=== PATIENT | female | born 1990 | race Caucasian/White ===

== ENCOUNTER → 2019-11-12 15:02 | Outpatient (CLI) | payer OTHER, SELFPAY ==
[2019-06-27 16:36] VITALS: BMI 26.9
[2019-11-12 16:12] LABS: Absolute Lymphocyte Count 1.67 X10^3/uL (0.83-4.51); Absolute Neutrophil Count 7.3 X10^3/uL (2.0-7.7); Basophil# 0.06 X10^3/uL; Basophil% 0.6 % (0-1); Eosinophil# 0.22 X10^3/uL; Eosinophils% 2.1 % (0-5); Hematocrit 52.5 % (37-47); Hemoglobin 17.6 g/dL (12.0-15.0); Lymphocyte # 1.67 X10^3/ul (4.0); Lymphocyte % 16.1 % (19-41); Mean Corp Hgb Conc 33.5 g/dL (32-36); Mean Corpuscular Hgb 32.4 pg (27.0-32.0); Mean Corpuscular Volume 96.7 fL (81-99); Mean Platelet Vol. 9.8 fl (6.2-12.0); Monocyte# 1.12 X10^3/uL; Monocyte% 10.8 % (0-10); NRBC Flagged by Analyzer 0 % (0-5); Neutrophil # 7.29 X10^3/uL (2.7-7.7); Platelet Count 262 K/mm3 (150-450); RBC Distribution Width SD 42.9 fl (35.1-43.9); Red Blood Count 5.43 M/mm3 (4.2-5.4); White Blood Count 10.4 K/mm3 (4.4-11.0)
[2019-11-12 16:22] LABS: Color, Urine Yellow (Yellow); Glucose, Dipstick Normal (Normal); Ketone-Dipstick 15 mg/dl (Negative); Leukocyte Esterase-Dipstick Negative /ul (Negative); Nitrite-Dipstick Negative (Negative); Occult Blood-Urine Negative /ul (Negative); Protein-Dipstick Negative (Negative); Specific Gravity, Urine 1.025 (1.002-1.030); Urine Bilirubin Dipstick Negative (Negative); Urine Clarity Clear (Clear); Urine Urobilinogen Normal (Normal)
[2019-11-12 16:53] LABS: ALB/GLOB Ratio 1.1 RATIO (0.9-2.4); AST(SGOT) 87 U/L (15-37); Alanine Aminotransfer ALT/SGPT 65 U/L (13-56); Albumin, Serum 3.9 g/dL (3.2-5.0); Alkaline Phosphatase 69 U/L (45-117); Anion Gap 6 (5-15); BUN 6 mg/dL (7-18); BUN/Creat Ratio 7.5 RATIO (10-20); Calcium,Total 8.7 mg/dL (8.5-10.1); Chloride 106 mmol/L (98-107); Cholesterol 157 mg/dL (200); EST Glomerular Filtration Rate 91 mL/min (>60); Est Glom Filt Rate - Afr Amer 110 mL/min (>60); Globulin 3.4 g/dL (2.2-4.2); Glucose 95 mg/dL (74-106); High Density Lipoprotein 58 mg/dL; Potassium 3.9 mmol/L (3.5-5.1); Protein, Total 7.3 g/dL (6.4-8.2); Sodium Level 139 mmol/L (136-145); Triglycerides 49 mg/dL; Very Low Density Lipoprotein 10 mg/dL (5-40)
== END ==
PROVIDERS: PCP Family Medicine; Referring Provider Family Medicine; Visit Provider Family Medicine
DX: Z00.00 Encounter for general adult medical examination without abnormal findings (principal); I10 Essential (primary) hypertension
CPT/HCPCS: 36415; 80053; 80061; 81002; 85025

== ENCOUNTER → 2019-11-18 14:37 | Outpatient (CLI) | payer OTHER, SELFPAY ==
[2019-06-27 16:36] VITALS: BMI 26.9
[2019-11-20 05:06] LABS: HEPATITIS B SURFACE AG Negative (Negative); Hepatitis A IgM Antibody Negative (Negative); Hepatitis B Core AB IgM Negative (Negative)
[2019-11-21 11:51] LABS: Hep C Antibodies <0.1 s/co ratio (0.0-0.9)
== END ==
PROVIDERS: PCP Family Medicine; Referring Provider Family Medicine; Visit Provider Family Medicine
DX: R94.5 Abnormal results of liver function studies (principal)
CPT/HCPCS: 36415; 80074

== ENCOUNTER → 2020-02-25 10:25 | Outpatient (CLI) | payer OTHER, SELFPAY ==
[2019-06-27 16:36] VITALS: BMI 26.9
--- NOTE | 2020-02-25 10:35 | US_ITS ---
STUDY: ABDOMINAL ULTRASOUND - RIGHT UPPER QUADRANT REASON FOR VISIT: Female, 29 years old ELEVATED LFT''S TECHNIQUE: Ultrasound evaluation of the right upper quadrant was performed with real-time and static gupta-scale imaging. TECHNICAL QUALITY: Adequate. COMPARISON: Comparison is made with prior examination dated October 18, 2016. FINDINGS: Liver: The liver measures 15.6 cm. There is normal echogenicity of the liver. The bile ducts are within normal limits. There is hepatic color flow. The direction of portal flow is hepatopetal. There is no demonstrated mass lesion. Gallbladder: Normal distended gallbladder. The gallbladder wall measures 2.2 mm. There is a negative sonographic Talbert''s sign. There is no pericholecystic fluid. There are no gallstones. Common Bile Duct (C.B.D.): The common bile duct measures 3.4 mm. Pancreas: Normal size of the head, body and tail of the pancreas. There is normal echogenicity of the pancreas. There is no demonstrated pancreatic mass or cyst. Right Kidney: Normal size of the right kidney. The right kidney measures 10.5 cm x 4.8 cm x 4.1 cm. Normal renal cortex. The right cortex measures 1.2 cm. There is no demonstrated renal mass or cyst. There is no right hydronephrosis. US/Abdomen Limited IMPRESSION: Normal right upper quadrant ultrasound examination. Electronically Signed: Mg Olson, at 13:33 EDT , Service support ,
== END ==
PROVIDERS: PCP Family Medicine; Referring Provider Family Medicine; Visit Provider Family Medicine
DX: R94.5 Abnormal results of liver function studies (principal)
CPT/HCPCS: 76705

== ENCOUNTER → 2023-04-12 | Outpatient (CLI) | payer OTHER, MEDICAID, SELFPAY ==
[2023-04-12 16:38] LABS: Absolute Lymphocyte Count 2.18 X10^3/uL (0.83-4.51); Absolute Neutrophil Count 7.5 X10^3/uL (2.0-7.7); Basophil# 0.07 X10^3/uL; Basophil% 0.6 % (0-1); Eosinophil# 0.18 X10^3/uL; Eosinophils% 1.6 % (0-5); Hematocrit 48.2 % (37-47); Hemoglobin 16.7 g/dL (12.0-15.0); Lymphocyte # 2.18 X10^3/ul (0.83-4.51); Lymphocyte % 19.3 % (19-41); Mean Corp Hgb Conc 34.6 g/dL (32-36); Mean Corpuscular Hgb 31.9 pg (27.0-32.0); Mean Corpuscular Volume 92.2 fL (81-99); Mean Platelet Vol. 9.6 fl (6.2-12.0); Monocyte# 1.31 X10^3/uL; Monocyte% 11.6 % (0-10); NRBC Flagged by Analyzer 0 % (0-5); Neutrophil # 7.52 X10^3/uL (2.7-7.7); Neutrophil % 66.5 % (47-70); Platelet Count 297 K/mm3 (150-450); RBC Distribution Width CV 12.6 % (11.6-14.6); RBC Distribution Width SD 42.6 fl (35.1-43.9); Red Blood Count 5.23 M/mm3 (4.2-5.4); White Blood Count 11.3 K/mm3 (4.4-11.0)
[2023-04-12 18:09] LABS: HIV - WCH Non-Reactive (Nonreactive); Hepatitis B Surface Antigen Non-Reactive (Nonreactive); Hepatitis C Antibody Non-Reactive (Nonreactive); Rubella IgG Reactive (Nonreactive); Syphilis Antibodies Non-reactive
[2023-04-14 06:09] LABS: V-Zoster IgG (Immunity) 1191 index (Immune >165)
== END | disposition home or self-care (01) ==
PROVIDERS: PCP Family Medicine; Visit Provider Obstetrics & Gynecology
DX: Z34.81 Encounter for supervision of other normal pregnancy, first trimester (principal)
CPT/HCPCS: 36415; 85025; 86703; 86762; 86780; 86787; 86803; 87086; 87340

== ENCOUNTER → 2023-04-24 | Outpatient (CLI) | payer OTHER, MEDICAID, SELFPAY ==
--- NOTE | 2023-04-24 | IMM_PTH ---
PATIENT: FRANCIS RUVALCABA LOC: [facility] U#:[id number] AGE/SX: 32/F ROOM: RE04/24/[address]: Dr. Dominik Islas MD : 1990 BED: DIS: 04/24/2023 SPEC #: [id number] RECD: 04/26/23 12:17 STATUS: ALISIA REQ #: [id number] STUART: 04/24/23 00:[address]: Dominik Islas DEPT: IMMUNOHISTOCHEMISTRY RECD BY: Zaira Julian ENTERED: 04/26/23 12:17 SP TYPE: IMMUNO OTHR DR: Dr. Artie Segura MD Tissues: Uterine cervix, NOS Procedures: p16 (initial) KI-67 (add) PHYSICIAN & [place] [id number] SPECIMEN INFORMATION: Tissue Source: Cervix at 1, 5, 7 & 11 o'clock Clinical Info: R87.612 Specimen Number: [id number] CPT code: 51926, 90628 METHODOLOGY: Deparaffinized sections of prefer/formalin-fixed tissue or PAP/DQ stained slides are incubated with monoclonal/polyclonal antibodies/oligonucleotide probes. Localization is made via biotin free immunoperoxidase method. Appropriate controls are performed and reacted as expected. Results on target cell population are indicated in the following table: RESULTS: ANTIBODY / CLONE RESULT P16 (E6H4) positive, patchy Ki-67 (30-9) positive, low These tests were developed and their performance characteristics determined by [facility]. They may not have been cleared or approved by the U.S. Food and Drug Administration. The FDA has determined that such clearance or approval is not necessary. The above immunohistochemical/dualISH markers are ordered and reviewed by the Pathologist. INTERPRETATION: Cervix, biopsy: Mild squamous dysplasia, DOUGLAS I (LSIL). AM:pilo 04/27/2023
--- NOTE | 2023-04-24 13:07 | CER_PTH ---
PATIENT: FRANCIS RUVALCABA LOC: [facility] U#:[id number] AGE/SX: 32/F ROOM: RE04/24/[address]: Dr. Dominik Islas MD : 1990 BED: DIS: 04/24/2023 SPEC #: [id number] RECD: 04/24/23 16:33 STATUS: ALISIA FLYNN #: [id number] STUART: 04/24/23 13:[address]: Dominik Islas DEPT: SURGICAL PATHOLOGY RECD BY: Vernon Goodman ENTERED: 04/25/23 06:54 SP TYPE: CERV OTHR DR: Dr. 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 Squamous metaplasia and chronic inflammation. See comment. AM:pilo 04/26/2023 COMMENT Results from immunohistochemistry ([id number]) for surrogate HPV marker (p16) will be reported separately. MICROSCOPIC DESCRIPTION Slides are reviewed. GROSS DESCRIPTION Received is one container labeled with the patient's name and not further designated. The specimen consists of multiple irregular and mucoid fragments of light zavala soft tissue that in aggregate measure 1.0 x 0.5 x <0.1 cm. The specimen is totally submitted in one cassette. / AM:pilo 04/25/2023 TC:3 CPT: 67704
== END | disposition home or self-care (01) ==
LOC: LABSPEC 13:55
PROVIDERS: PCP Family Medicine; Visit Provider Obstetrics & Gynecology
DX: R87.612 Low grade squamous intraepithelial lesion on cytologic smear of cervix (LGSIL) (principal)
CPT/HCPCS: 88305; 88341; 88342

== ENCOUNTER 2023-04-29 10:50 | Emergency (ER) | payer OTHER, MEDICAID, SELFPAY ==
[2023-04-29 10:50] VITALS: BP 129/100; PULSE 73; RESP 18; TEMP 36.3; O2SAT 97; BMI 28.3
--- NOTE | 2023-04-29 11:00 | US_ITS ---
STUDY: FIRST TRIMESTER OBSTETRICAL ULTRASOUND REASON FOR EXAM: Female, 32 years old abnormal bleeding, possible miscarriage LMP: 03/04/2023 TECHNIQUE: Transvaginal TECHNICAL QUALITY: Adequate. PRIOR ULTRASOUND: None. FINDINGS: There is visualization of a single gestational sac in a normal intrauterine position. The mean sac diameter (MSD) measures 2.91 cm, indicating an estimated gestational age (EGA) of 8 weeks, 0 days. The gestational sac shape is within normal limits. There is a visualized yolk sac. The yolk sac measures 0.38 cm. The placenta is non-visualized. There is visualization of a live embryo. The crown-rump length (CRL) measures 1.71 cm, indicating an estimated gestational age (EGA) of 8 weeks, 0 days. There is demonstrated cardiac activity with a heart rate of 161 bpm. The estimated gestation age (EGA) by LMP is 8 weeks, 0 days. The estimated date of delivery (ANDRY) by LMP is 12/09/2023. The estimated gestation age (EGA) by US is 8 weeks, 0 days. The estimated date of delivery (ANDRY) by US is 12/09/2023. The uterus measures 8.9 x 6.9 x 5.1 cm. There is no demonstrated uterine fibroid. The cervix is closed. The right ovary measures 1.9 x 1.7 x 0.9 cm. There is no right ovarian cyst. There is no visualized right adnexal mass or complex lesion. The left ovary measures 2.7 x 2.4 x 2.2 cm. There is a corpus luteal cyst measuring 2 cm. There is no fluid in the cul de sac. US/Transvaginal w/Preg US IMPRESSION: Single live intrauterine at 8 weeks, 0 days by current ultrasound with ANDRY of 12/09/2023. Heart rate 161 bpm. No suspicious sonographic findings Electronically Signed: Arsen Tan MD at 13:17 EDT ,
--- NOTE | 2023-04-29 11:01 | ED.VIS.FEGU ---
HPI HPI - Female History of Present Illness Chief Complaint: Vag Bld, Preg Detail of Chief Complaint: Concern for miscarriage Informant: patient and spouse/S.O. Narrative Narrative: Patient presents to the emergency department with concern that she may have had a miscarriage this morning. Patient states that she thought she was about 8 weeks . She had an ultrasound about 3 weeks ago in the WEB SITE ADMINISTRATOR's office but they could not really see much. This morning she had some cramping and small amount of vaginal bleeding and then she passed some tissue which she then flushed on the toilet but she did take a picture of it. Patient denies any significant abdominal pain currently. She is G2, P1. [facility] Medical History (Updated 04/29/23 @ 13:[address] David Evans, DO) Back pain Herniation of intervertebral disc between L5 and S1 HTN (hypertension) Migraines Tension headache Home Medications alprazolam 0.25 mg tablet (Xanax) 0.25 mg PO DAILY 06/27/19 [History Last Taken Unknown] etonogestrel 68 mg subdermal implant 1 implant subdermal ONCE 06/27/19 [History Last Taken Unknown] valsartan 160 mg tablet PO #30 tabs 06/27/19 [History Last Taken Unknown] Allergy/AdvReac Type Severity Reaction Status Date / Time No Known Allergies Allergy Verified 04/29/23 10:50 Family History (Updated 06/27/19 @ 16:44 by Christy Jason) Grandfather Myocardial infarction Other Hypertension Surgical History H/O reconstruction of anterior cruciate ligament tear Social History (Updated 06/27/19 @ 17:04 by Rohit HORNER, PA) Smoking Status: Current every day smoker tobacco type: cigarettes alcohol intake: current Alcohol type: beer ROS ROS ED Review of Systems ROS Unobtainable: other Constitutional Constitutional ED: Reports lethargy; Denies chills, fever(s), sweats or weight loss Eyes Eyes: Denies blurry vision, change in vision or diplopia ENT ENT ED: Denies rhinorrhea or sore throat Cardiovascular Cardiovascular: Denies chest pain, orthopnea or racing heartbeat Respiratory/Chest Respiratory/Chest: Denies cough, dyspnea, dyspnea on exertion, orthopnea or sputum Gastrointestinal Gastrointestinal: Reports nausea; Denies abdominal pain, diarrhea or vomiting Genitourinary Genitourinary ED: Reports other Details: Vaginal bleeding ; Denies dysuria, hematuria or urinary frequency Musculoskeletal Musculoskeletal: Denies arthralgias, back pain, myalgias or neck pain Integumentary Denies abscess, Abrasions or rash Neurologic Neurologic: Denies headache(s) or weakness Psychiatric Psychiatric: Denies anxiety, depression or suicidal thoughts Endocrine Endocrinology: Denies polydipsia, polyphagia or polyuria Hematologic/Lymphatic Hematologic/Lymphatic: Denies easy bleeding, easy bruising or lymphadenopathy Allergic/Immunologic Allergic/Immunologic ED: Denies mouth swelling, tongue swelling or urticaria EXAM Physical Exam Const Vital Signs: 04/29/23 10:50 04/29/23 12:07 Temperature 97.4 F L Temperature Source Temporal Pulse Rate 73 73 Respiratory Rate 18 18 Blood Pressure 129/100 H 143/94 H Blood Pressure Mean 109 110 Pulse Ox 97 95 Oxygen Delivery Method Room Air Room Air Positive well nourished and well developed General Appearance ED: well developed and NAD HEENT Reports TM's clear and moist mucous membranes normocephalic and atraumatic; Negative for trauma or tenderness Tympanic Membrane ED: Yes TM's clear Eyes PERRL and EOMs intact bilaterally General Eye ED: Negative for pale conjunctiva or scleral icterus Neck no lymphadenopathy, supple and no JVD General: Negative for tenderness Chest Wall inspection of chest normal and palpation of chest normal Chest: Negative for tenderness Resp normal respiratory effort and clear to auscultation bilaterally Effort and Inspection: Negative for respiratory distress or pain with movement Auscultation: Negative for rhonchi, wheezes or diminished lung sounds Cardio regular rate, regular rhythm, S1 normal heart sound, S2 normal heart sound and no murmurs Peripheral Pulses: pulses 2+ throughout GI normal to inspection, nondistended, normoactive bowel sounds, soft to palpation, non-tender, non-distended and no masses Back/Spine no CVA tenderness and no thoracic nor lumbar tenderness Extremity normal to inspection General Extremety ED: Negative for edema General Extremity: Negative for edema Neuro oriented x3, CN's II-XII intact bilaterally, no sensory deficits noted and gait normal Sensorium / Orientation: awake, alert, oriented to person, oriented to place and oriented to time Motor Exam: strength 5/5 throughout and strength abnormal Psych mental status grossly normal Skin no rashes or lesions noted and no wounds MDM MDM MDM Narrative Medical decision making narrative: Patient presents to the emergency department complaint concern for miscarriage. She had passed some tissue today and had small amount of bleeding. Patient had a CBC with differential that showed a white count of 14.3 with hemoglobin 16.8 and platelet count 295. Blood type was a positive. Quantitative hCG was 86,000. Pelvic ultrasound obtained showed single live intrauterine dating 8 weeks with heartbeat at 160 bpm. Discussed this with patient. It is unclear what she passed. She is not having any abdominal discomfort currently or significant bleeding. Will discuss with WE[facility] SITE ADMINISTRATOR on-call to arrange follow-up. Lab Data Attestation: I reviewed the patient's lab results. Labs: Laboratory Results - last 24 hr 04/29/23 11:16 WBC 14.3 H RBC 5.27 Hgb 16.8 H Hct 48.6 H MCV 92.2 MCH 31.9 MCHC 34.6 RDW Std Deviation 40.8 RDW Coeff of Elva 11.9 Plt Count 295 MPV 9.6 Immature Gran % (Auto) 0.400 Neut % (Auto) 75.4 H Lymph % (Auto) 14.1 L [place] % (Auto) 7.7 Eos % (Auto) 2.0 Baso % (Auto) 0.4 Absolute Neuts (auto) 10.7 H Absolute Lymphs (auto) 2.01 Nucleated RBC % 0 HCG, Quant 25364 H Blood Type A POSITIVE Radiography Diagnostic Testing: Clinical Impression(s) from Imaging Studies Obstetrics Ultrasound 04/29/23 11:00 IMPRESSION: Single live intrauterine at 8 weeks, 0 days by current ultrasound with ANDRY of 12/09/2023. Heart rate 161 bpm. No suspicious sonographic findings Electronically Signed: Arsen Tan MD at 13:17 EDT , Discharge Plan Triage Chief Complaint: Vag Bld, Preg ED Provider: David Evans Dx/Rx/DC Orders Clinical Impression: Threatened , Vaginal bleeding Instructions: ED Possible Miscarriage ... Prescriptions: No Action valsartan 160 mg tablet PO Qty: 30 Patient Comments: TAKE 1 TABLET BY MOUTH ONCE DAILY alprazolam [Xanax] 0.25 mg tablet 0.25 mg PO DAILY etonogestrel 68 mg implant 1 implant subdermal ONCE Primary Care Provider: Artie Segura Referrals: Manjula Delgado MD [Med Staff - Active Staff] - 5-7 Days Artie Segura MD [Primary Care Provider] - Disposition Disposition: Home, Self Care
[2023-04-29] MEDS: Acetaminophen 500 MG Tablet 1000 MG PO (11:22)
[2023-04-29 11:23] LABS: Absolute Lymphocyte Count 2.01 X10^3/uL (0.83-4.51); Absolute Neutrophil Count 10.7 X10^3/uL (2.0-7.7); Basophil# 0.06 X10^3/uL; Basophil% 0.4 % (0-1); Eosinophil# 0.29 X10^3/uL; Hematocrit 48.6 % (37-47); Hemoglobin 16.8 g/dL (12.0-15.0); Lymphocyte # 2.01 X10^3/ul (0.83-4.51); Lymphocyte % 14.1 % (19-41); Mean Corp Hgb Conc 34.6 g/dL (32-36); Mean Corpuscular Hgb 31.9 pg (27.0-32.0); Mean Corpuscular Volume 92.2 fL (81-99); Mean Platelet Vol. 9.6 fl (6.2-12.0); Monocyte% 7.7 % (0-10); NRBC Flagged by Analyzer 0 % (0-5); Neutrophil # 10.74 X10^3/uL (2.7-7.7); Neutrophil % 75.4 % (47-70); Platelet Count 295 K/mm3 (150-450); RBC Distribution Width CV 11.9 % (11.6-14.6); RBC Distribution Width SD 40.8 fl (35.1-43.9); Red Blood Count 5.27 M/mm3 (4.2-5.4); White Blood Count 14.3 K/mm3 (4.4-11.0)
[2023-04-29 12:00] LABS: hCG Titer Quant., Serum 86007 mIU/mL (1-3)
[2023-04-29 12:07] VITALS: BP 143/94; PULSE 73; RESP 18; O2SAT 95
[2023-04-29 13:37] VITALS: BP 122/79; PULSE 64; RESP 18; O2SAT 99
== END 2023-04-29 13:38 | disposition home or self-care (01) ==
PROVIDERS: Emergency Provider Emergency Medicine; PCP Family Medicine; Visit Provider Emergency Medicine
DX: O20.0 Threatened abortion (principal); O99.331 Smoking (tobacco) complicating pregnancy, first trimester; F17.210 Nicotine dependence, cigarettes, uncomplicated; Z3A.00 Weeks of gestation of pregnancy not specified
CPT/HCPCS: 76817; 84702; 85025; 86900; 86901; 99284; A4216

== ENCOUNTER 2023-11-30 05:10 | Inpatient (IN) | payer OTHER, MEDICAID, SELFPAY ==
[2023-11-30] VITALS (108 sets, daily range): BP systolic 106–140; BP diastolic 57–86; PULSE 59–187; RESP 12–18; TEMP 36–36.6; O2SAT 89–100; BMI 31.6
[2023-11-30] MEDS: Lactated Ringers 1,000 ML 999 ML IV (06:05)
[2023-11-30] MEDS: Sodium Citrate/Citric Acid 30 ML UDC PO (06:15)
[2023-11-30] MEDS: Acetaminophen 500 MG Tablet 1000 MG PO ×3 (06:16→18:11)
[2023-11-30 06:25] LABS: Absolute Lymphocyte Count 2.18 X10^3/uL (0.83-4.51); Absolute Neutrophil Count 9.1 X10^3/uL (2.0-7.7); Basophil# 0.05 X10^3/uL; Basophil% 0.4 % (0-1); Eosinophil# 0.16 X10^3/uL; Eosinophils% 1.3 % (0-5); Hematocrit 41.8 % (37-47); Hemoglobin 13.9 g/dL (12.0-15.0); Lymphocyte # 2.18 X10^3/ul (0.83-4.51); Lymphocyte % 17.4 % (19-41); Mean Corp Hgb Conc 33.3 g/dL (32-36); Mean Corpuscular Hgb 30.2 pg (27.0-32.0); Mean Corpuscular Volume 90.7 fL (81-99); Mean Platelet Vol. 10.3 fl (6.2-12.0); Monocyte# 1.05 X10^3/uL; Monocyte% 8.4 % (0-10); NRBC Flagged by Analyzer 0 % (0-5); Neutrophil # 9.06 X10^3/uL (2.7-7.7); Platelet Count 267 K/mm3 (150-450); RBC Distribution Width CV 12.7 % (11.6-14.6); RBC Distribution Width SD 41.5 fl (35.1-43.9); Red Blood Count 4.61 M/mm3 (4.2-5.4); White Blood Count 12.6 K/mm3 (4.4-11.0)
[2023-11-30 06:43] LABS: Bedside Glucose 92 mg/dL (74-106)
--- NOTE | 2023-11-30 07:10 | HP.PCM.OB_ITS ---
History and Physical Date of Admission: 11/30/23 PROBLEM: pre op, elective section per patient request ? PAST SURGICAL HISTORY: PAST SURGICAL HISTORYExpand by Default PAST SURGICAL HISTORY Procedure Laterality Date ? EXTRACTION ERUPTED TOOTH ? ? ? wisdom teeth ? PAST SURGICAL HISTORY OF Left ? ? ACL ? VAGINOSCOPY ? PAST MEDICAL HISTORY: PAST MEDICAL HISTORYExpand by Default PAST MEDICAL HISTORY Diagnosis Date ? anxiety/depression ? ? ASCUS with positive high risk HPV cervical ? ? Atypical glandular cells of undetermined significance (J LUIS) on cervical Pap smear 01/24/2022 ? [place] HPV+ ? Breast disorder ? ? Complication of anesthesia ? ? Dysmenorrhea ? ? Excessive or frequent menstruation ? ? Heavy periods ? Gestational diabetes ? ? Gestational hypertension ? ? Migraine ? ? depression ? ? Tension headache ? ? ? SUBJECTIVE: Pt is doing well and offers no complaints. ? SOCIAL HISTORY: SOCIAL HISTORYExpand by Default Social History ? Tobacco Use ? Smoking status: Every Day ? ? Packs/day: 0.25 ? ? Years: 15.00 ? ? Additional pack years: 0.00 ? ? Total pack years: 3.75 ? ? Types: Cigarettes ? ? Passive exposure: Never ? Smokeless tobacco: Never Vaping Use ? Vaping Use: Never used Substance Use Topics ? Alcohol use: Not Currently ? ? Comment: Occasionally ? Drug use: No ? ? ALLERGIESExpand by Default ALLERGIES Allergen Reactions ? Pollen Other: See Comments ? ? Headaches ? Current Outpatient Medications on File Prior to Visit Medication Sig ? insulin NPH (HUMULIN N NPH INSULIN KWIKPEN) 100 unit/mL (3 mL) injection pen Inject before 10 units breakfast and at 14 units at bedtime. Subcutaneously ? insulin needles, DISPOSABLE, (PEN NEEDLE) 31 gauge x 5/16 1 Each once daily. ? blood sugar diagnostic test strip Use as directed to check glucose levels up to seven times daily. ? Lancets lancets Use as directed to check glucose levels up to seven times daily. ? ondansetron (ZOFRAN) 4 mg tablet Take 1 tablet by mouth every 8 hours as needed for nausea/vomiting. ? sertraline (ZOLOFT) 25 mg tablet Take 1 tablet by mouth once daily. ? [id number],crb-folic 30 mg iron- 1 mg tab Take by mouth. ? No current facility-administered medications on file prior to visit. ? OBJECTIVE: ? VITALS: BP 120/78 Wt 185 lb (83.9 kg) LMP 02/01/2023 BMI 31.26 kg/m? ? HEENT: Normocephalic, atraumatic, Mucus membranes moist without lesions. ? SKIN: No lesions. ? CHEST: No increased resp effort. ? HEART: Regular rate. ? BACK: Nontender with no CVA tenderness. ? ABDOMEN: Soft, non-tender, non-distended, no masses, no hepatosplenomegaly. ? LOWER EXTREMITIES: There was no pitting edema, no palpable cords and no skin changes. ? ? ? ASSESSMENT: pre op, elective section per patient request ? PLAN: 1) Discussed r/b/a primary section in detail. Fetus now vertex on bedside ultrasound. Fetus was previously breech presentation for which the johnathan arean section was scheduled. She understands the recommendation is to try for a vaginal delivery. The patient requests to proceed with the scheduled section. The rationale for the proposed surgery was discussed in addition to risks, benefits, and alternatives. General pre- and post-operative care was reviewed. Questions were answered. After discussion, the patient indicated a desire to proceed with the planned surgery. ? Brianna Law, DO Assessment & Plan Assessment/Plan (1) 39 weeks gestation of :
[2023-11-30] MEDS: Cefazolin 2 GM in 0.9% Normal Saline (100mL Bag) 100 ML IV (07:20)
[2023-11-30] MEDS: Oxytocin 15 Units/NS 250ml 15 UNITS/250 ML IV.SOLN 83 UNITS IV (08:50)
--- NOTE | 2023-11-30 08:57 | OP.PCM_ITS ---
Problems Associated Problem List Diagnoses (1) 39 weeks gestation of : (2) Delivery by elective section: (3) Unstable lie of fetus: Report of Operation Date of Procedure: 11/30/23 Pre-Operative Diagnosis: 39 week gestation, A2GDM, unstable lie of fetus, el ective primary section, single IUP Post-Operative Diagnosis: As above Surgery/Procedure Performed:: PLTCS via pfannenstiel incision Description of Surgical Findings:: VFI in oblique presentation with head in maternal right pelvis. Clear fluid. Normal appearing placenta. Normal appearing uterus and bilateral adnexa. Loose nuchal cord x 1. Surgeon: Brianna Law multi craft maintenance technician: Nakul MCFADDEN Type of Anesthesia: General Special Medications: None Specimen's removed: Placenta Drains: Bullock Estimated Blood Loss (mL): 600 Fluids Replaced: 1500 mL Description of Procedure: The patient was taken to the operating where spinal anesthesia was induced. She was prepped and draped in the dorsal supine position with a leftward tilt. A 1 cm healing and resolving prior abscess was noted along the patient's left side near where the pfannenstiel incision would be made. The patient was still noticing pain along the site of the incision with testing with an Allis clamp. Per anesthesia, 10 cc of 1% lidocaine was injected along the incision site. Anesthesia also administered ketamine. A Pfannenstiel skin incision was made with a scalpel and carried down to the underlying layer of fascia. The fascia was incised in the midline. The fascia was extended laterally using Chavis scissors. The fascia was dissected off of the rectus muscles in a cephalad and caudad direction. Rectus muscles were midline. The peritoneum was entered with sharp dissection with good visualization of the bladder. Peritoneal incision was extended with traction laterally. A bladder blade was inserted. A low transverse incision was made on the uterus with a scalpel. The uterine incision was extended using traction both cephalad and caudad, and membranes were ruptured for clear fluid upon extending the uterine incision. The head was delivered through the hysterotomy in a flexed position, followed by the body without any traction, force, or delay. A loose nuchal cord x 1 was noted and the infant was delivered through the nuchal cord. The cord was clamped and cut after a slight delay. The vigorous viable female was handed off to the awaiting nursery staff. The placenta delivered spontaneously. The uterus was exteriorized. The uterus was cleared of all clot and debris. The hysterotomy was closed with a 1-0 Vicryl in a running locked fashion. Several [id number] sutures using 1-0 Vicryl were placed along the hysterotomy for hemostasis. The uterus was placed back into the abdomen. Marivel was placed over the hysterotomy and the lower uterine segment. Hemostasis was noted. The peritoneum was closed using 3-0 Vicryl in a running fashion. The subfascial space was inspected noted be hemostatic. The fascia was closed STRATAFIX in a running fashion. Subcutaneous space was irrigated and made hemostatic with Bovie cautery. Subcutaneous space was reapproximated 3-0 Vicryl. The skin was closed with 4 Monocryl in a subcuticular fashion. A silver dressing was placed. Instrument, sponge, sharps were counts were correct and patient was taken recovery in stable addition. Nakul cobian was present for the entire procedure and assisted with draping the patient, delivery of , and closure. Grafts/Implants Used: None Procedure Start Time: 07:49 Procedure Stop Time: 08:39 Complications None Admit VTE Documentation VTE Present on Admission: No VTE Mechan Device Prophylaxis: SCD's
[2023-11-30] MEDS: Ketorolac 30 MG/ML Syringe IV ×3 (09:04→21:01)
[2023-11-30 09:46] LABS: Syphilis Antibodies Non-reactive
[2023-11-30] MEDS: 0.9% Saline Lock 10 ML Syringe IV ×4 (11:09→21:01)
[2023-11-30] MEDS: Ondansetron 4 MG/2 ML Vial IV (11:09)
[2023-11-30] MEDS: Lactated Ringers 1,000 ML 100 ML IV (11:50)
[2023-11-30 12:13] LABS: Bedside Glucose 110 mg/dL (74-106)
[2023-11-30] MEDS: Nalbuphine 10 MG/ML Ampul 5 MG IV (16:01)
--- NOTE | 2023-11-30 16:09 | CASEMGMT ---
Social Work Assessment Labor and Delivery Unit Patient Address:[address] [place] [id number] Phone number: [phone] Date of Referral: 11/30/23 Time of Referral:? 1229 Referred By: Brianna Law Date of Intervention: ??11/30/23 Time of Intervention:? 1529 Reason for Referral:? mental health Sw completed chart review and acknowledges social work consult due to maternal mental health. Sw presented to bedside and introduced self to mother of baby (CHANTALE Bahena) and her mother. Sw explained reason for sw involvement and asked if it was okay to complete psychosocial assessment due to visitor being present- MOB stated that was okay. History obtained from: medical records, MOB Household composition: Currently residing in the family home is MOB, father of baby (ANDREWS Treviño), their almost 2 year old son: Anuel and baby. YOVANY denies any issues or concerns with their housing at this time. Patient's parent/guardian status:? ?MOB states that she met FOB in high school and they started dating when they were 23 years old and they have been together now for 10 years. YOVANY denies any domestic violence or intimate partner violence. MOB states that FOJohn is very supportive and helpful. Medical History: ?YOVANY is 33 year old female who is 2, para 1- now 2 following labor and delivery of . YOVANY received routine care during with [facility]. YOVANY delivered baby via scheduled on 11/30/23 at 39 weeks gestation. Baby girl, Ping Joya, was born weighing 5lb 8oz and her apgars were 8 and 9 at one and five minutes of life, respectfully. Baby will be followed by Dr. Fuentes. MOB states that she has intentions of breast feeding. Educational Status:? MOB reports that both parents obtained associates degrees. No concerns with reading, learning or comprehension. Financial Status: Both parents are gainfully employed outside of the home. GAVIN works for [employer] and is able to take one week off of work. 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 MOB states that she is also able to take a maternity leave. Supplies:?Parents have obtained all necessary baby supplies, including: car seat, safe sleep space, clothes, diapers and wipes. ? Childcare/Caregiver(s):? MOB will be the primary caregiver to baby along with GAVIN when he is not at work. Transportation:??No transportation barriers at this time. Programs/Agencies Involved: ???YOVANY is connected to insurance supports through medicaid. Children Services/Legal Issues:???No history of involvement, no issues or concerns warranting referral to be made at this time. Behavioral Health Issues: ??Mental Health History: YOVANY states that GAVIN has anxiety and is prescribed antianxiety medication but she is not sure what it is called. YOVANY reports that she has been diagnosed with anxiety and depression and also experienced depression following her last delivery. YOVANY states that her last delivery was extremely traumatic and she was hospitalized for a week afterwards. YOVANY states that she already feels better this time around, and knows that this experience will be much better. YOVANY is prescribed zoloft. ?? Substance Use History: MOB denies substance use history prior to and during . ?? Family History:???MOB denies family history of substance use/ addiction and significant mental health diagnoses. ?? Drug Screens: ??No urine screens observed during chart review. Family/Social Stressors:? YOVANY denies any issues, concerns or stressors at this time. Support Systems: YOVANY states that she has a lot of natural supports in place. YOVANY reports that her and her mom (currently present) are her biggest supports. Depression/Shaken Baby/Safe Sleeping:? Sw educated MOB on signs and symptoms of baby blues and anxiety and depression. MOB expressed understanding. Sw educated MOB on shaken baby prevention and ABCs of safe sleep. MOB expressed understanding. ASSESSMENT:? MOB and baby admitted following labor and delivery. MOB participated in completion of psychosocial assessment, made and maintained eye contact. MOB states that she is familiar with signs and symptoms of baby blues and depression to be on the lookout for. MOB states that FOJohn is a big support and would be able to recognize if she were struggling. MOB states that she has everything she needs for baby, and has a lot of natural supports in place. MOB was open and receptive to sw involvement and support. PLAN:? MOB and baby to be discharged when medically ready. ?No other services requested or indicated. Wander Greenberg, PATIENT RELATIONS SPECIALIST, COLOR STRAINER
[2023-12-01] VITALS (14 sets, daily range): BP systolic 117–143; BP diastolic 55–85; PULSE 60–82; RESP 16–18; TEMP 36.3–37.1; O2SAT 96–98
[2023-12-01] MEDS: Acetaminophen 500 MG Tablet 1000 MG PO ×4 (00:24→17:50)
[2023-12-01] MEDS: Nalbuphine 10 MG/ML Ampul 5 MG IV (00:25)
[2023-12-01] MEDS: 0.9% Saline Lock 10 ML Syringe IV ×3 (00:25→11:15)
[2023-12-01] MEDS: Ketorolac 30 MG/ML Syringe IV (03:06)
[2023-12-01 05:03] LABS: Hematocrit 33.6 % (37-47); Mean Corp Hgb Conc 32.7 g/dL (32-36); Mean Corpuscular Hgb 30.1 pg (27.0-32.0); Mean Corpuscular Volume 92.1 fL (81-99); Mean Platelet Vol. 10.4 fl (6.2-12.0); Platelet Count 231 K/mm3 (150-450); RBC Distribution Width CV 12.8 % (11.6-14.6); RBC Distribution Width SD 42.1 fl (35.1-43.9); Red Blood Count 3.65 M/mm3 (4.2-5.4); White Blood Count 17.9 K/mm3 (4.4-11.0)
[2023-12-01 05:17] LABS: Bedside Glucose 132 mg/dL (74-106)
--- NOTE | 2023-12-01 09:12 | PCM.PN.OB ---
Subjective Subjective The patient is doing well. Pain is well-controlled. She is ambulating without lightheadedness or dizziness. She denies chest pain, shortness of breath, leg pain. She is eating without nausea or vomiting. She is voiding without difficulty. Lochia is normal. She denies a headache or vision changes. Objective Data Objective Data Vital Signs: Vital Signs Temp Pulse Resp BP Pulse Ox O2 Del Method 98.2 F 82 18 133/71 H 96 Room Air 12/01/23 07:32 12/01/23 07:32 12/01/23 06:00 12/01/23 07:32 12/01/23 06:00 12/01/23 06:00 Oxygen Delivery Method Room Air Weight: 189 lb 13.088 oz Body Mass Index (BMI) 31.6 Intake & Output: Intake and Output for Last 24 Hours 11/29/23 11/30/23 12/01/23 23:59 23:59 23:59 Intake Total 1726.67 / 1726.67 Output Total 800 / 800 Balance 926.67 / 926.67 Lab / Micro Data 12/01/23 04:55 Labs: Laboratory Results - last 24 hr 11/30/23 06:00: Syphilis Total Ab Non-reactive 11/30/23 11:53: POC Glucose 110 H 12/01/23 04:54: POC Glucose 132 H 12/01/23 04:55: WBC 17.9 H, RBC 3.65 L, Hgb 11.0 L, Hct 33.6 L, MCV 92.1, MCH 30.1, MCHC 32.7, RDW Std Deviation 42.1, RDW Coeff of Elva 12.8, Plt Count 231, MPV 10.4 Physical Exam Const alert and no apparent distress General Appearance: comfortable HEENT normocephalic Resp normal respiratory effort GI soft to palpation and non-distended GI Narrative: ATTP, dressing in place Extremity no calf tenderness Assessment & Plan (1) Delivery by elective section: PLAN: The patient is postoperative day 1 from a section. She is doing well. She has had occasional mild range blood pressures but no symptoms of preeclampsia. Discussed with patient will continue to monitor blood pressure closely, and reviewed indication for medication. Continue routine postoperative care. Possible discharge to home tomorrow pending blood pressure.
[2023-12-01] MEDS: Senna/Docusate Sodium 1 Tablet PO (09:41)
[2023-12-01] MEDS: Ibuprofen 600 MG Tablet PO ×2 (09:41→17:50)
[2023-12-01] MEDS: SimETHICONE 80 MG Chewable Tablet PO (09:42)
[2023-12-01] MEDS: Ondansetron 4 MG/2 ML Vial IV (11:15)
[2023-12-01] MEDS: oxyCODONE 5 MG Tablet PO ×3 (11:16→22:33)
[2023-12-01] MEDS: Sertraline 50 MG Tablet 25 MG PO (14:05)
[2023-12-02] MEDS: Ibuprofen 600 MG Tablet PO ×2 (00:09→06:09)
[2023-12-02] MEDS: Acetaminophen 500 MG Tablet 1000 MG PO ×2 (00:09→06:57)
[2023-12-02 02:00] VITALS: BP 120/58; PULSE 60; RESP 14; TEMP 36.2; O2SAT 97
[2023-12-02 02:20] VITALS: PULSE 61; TEMP 36.2; O2SAT 97
[2023-12-02 02:21] VITALS: BP 120/58; PULSE 48
[2023-12-02 09:26] VITALS: BP 110/71; PULSE 58; TEMP 36.6
[2023-12-02 09:30] VITALS: BP 110/71; PULSE 67; RESP 18; TEMP 36.6; O2SAT 95
--- NOTE | 2023-12-02 09:35 | PCM.PN.OB ---
Subjective Subjective Doing well per patient and nursing staff. Ambulating and taking PO without difficulty. Voiding and passing flatus. Pain controlled. , services for assistance. Denies headache, visual changes, chest pain, shortness of breath, leg pain or increased bleeding. Lochia normal. Objective Data Objective Data Vital Signs: Vital Signs Temp Pulse Resp BP Pulse Ox O2 Del Method 97.9 F 58 L 14 110/71 97 Room Air 12/02/23 09:26 12/02/23 09:26 12/02/23 02:00 12/02/23 09:26 12/02/23 02:20 12/02/23 02:00 Oxygen Delivery Method Room Air Weight: 189 lb 13.088 oz Body Mass Index (BMI) 31.6 Intake & Output: Intake and Output for Last 24 Hours 11/30/23 12/01/23 12/02/23 23:59 23:59 23:59 Intake Total 1726.67 / 1726.67 Output Total 800 / 800 200 / 200 Balance 926.67 / 926.67 -200 / -200 Lab / Micro Data 12/01/23 04:55 ROS Constitutional Constitutional: Reports systems reviewed and no addt'l complaints, except as documented; Denies headache(s) Eyes Eyes: Denies acute decrease in peripheral vision, blurry vision or change in vision ENT HEENT: Reports systems reviewed and no addt'l complaints, except as documented Cardiovascular Cardiovascular: Denies chest pain or dizziness Respiratory/Chest Respiratory/Chest: Denies cough, dyspnea, dyspnea on exertion, shortness of breath at rest or shortness of breath with exertion Gastrointestinal Gastrointestinal: Denies abdominal pain, diarrhea, nausea or vomiting Genitourinary Genitourinary: Denies abdominal discomfort Musculoskeletal Musculoskeletal: Denies limited range of motion Integumentary Integumentary: Reports systems reviewed and no addt'l complaints, except as documented Neurologic Neurologic: Reports systems reviewed and no addt'l complaints, except as documented Psychiatric Psychiatric: Reports systems reviewed and no addt'l complaints, except as documented Endocrine Endocrinology: Reports systems reviewed and no addt'l complaints, except as documented Hematologic/Lymphatic Hematologic/Lymphatic: Reports systems reviewed and no addt'l complaints, except as documented Allergic/Immunologic Allergic/Immunologic: Reports systems reviewed and no addt'l complaints, except as documented Physical Exam Const alert and oriented x3 General Appearance: cooperative Orientation / Consciousness: awake, oriented to person, oriented to place and oriented to time Exam Limitations: no limitations HEENT normocephalic Head and Scalp: normal to inspection, normocephalic and atraumatic Face and Sinus: normal facial exam Eyes General Eye: normal appearance of both eyes Neck full ROM Chest Chest: symmetrical chest wall rise Resp normal respiratory effort and normal air movement Auscultation: clear to auscultation bilaterally Cardio regular rate, regular rhythm, S1 normal heart sound, S2 normal heart sound, no murmurs, no rub, no gallops and no clicks GI normal to inspection, nondistended, normoactive bowel sounds and non-tender GI Narrative: dressing dry and intact appearance of the vagina normal Bladder / Kidney Exam: no CVA tenderness Back/Spine normal ROM Extremity normal to inspection and full ROM Skin no rashes or lesions noted Neuro oriented x3, CN's II-XII intact bilaterally and moves all extremities Sensorium / Orientation: awake, alert and oriented to person Motor Exam: clonus absent Deep Tendon Reflexes: Rt Patellar (L4): 2+ and Lt Patellar (L4): 2+ Assessment & Plan (1) Delivery by elective section: PLAN: Plan 1) POD #2 2) Pain management 3) vitals stable 4) D/C home 5) Follow up 1 week and 6 weeks PP
--- NOTE | 2023-12-02 09:38 | PCM.DC.SUM ---
Providers Date of Admission: 11/30/23 Date of Discharge: 12/02/23 Primary Care Physician: Dr. Artie Segura MD Reason For Visit: C SECTION/CESECTION DELIVERY Diagnosis Discharge Diagnosis (1) Delivery by elective section: Status: Acute Code(s): O82 - Encounter for delivery without indication Plan 1) POD #2 2) Pain management 3) vitals stable 4) D/C home 5) Follow up 1 week and 6 weeks PP Medications at Discharge Home Medications sertraline 25 mg tablet (Zoloft) 25 mg PO DAILY depression 11/30/23 acetaminophen 500 mg tablet 1,000 mg (2 x 500 mg) PO Q6 #0 tabs 12/02/23 ibuprofen 600 mg tablet 600 mg PO Q6H #0 tabs 12/02/23 oxycodone 5 mg tablet 5 mg PO Q6H 7 days #7 tabs 12/02/23 Hospital Course Summary of Care Provided Minutes Spent on Discharge: 15 Hospital Course: Elective section. Normal course. D/C home POD #2 Weight / BMI Weight Weight: 189 lb 13.088 oz Body Mass Index (BMI) 31.6 ABG / Lab / Microbiology Data 12/01/23 04:55 Meaningful Use Info Meaningful Use Diagnoses (Choose all that apply): None applicable Discharge Plan Admission Admit Date/Time: 11/30/23 05:10 Primary Reason for Your Visit: section Attending Provider: Brianna Law Primary Care Provider: Artie Segura Discharge Orders/Prescriptions Prescriptions: New acetaminophen 500 mg Tablet 1,000 mg PO Q6 Qty: 0 0RF ibuprofen 600 mg Tablet 600 mg PO Q6H Qty: 0 0RF oxycodone 5 mg Tablet 5 mg PO Q6H 7 Days Qty: 7 0RF Continued sertraline [Zoloft] 25 mg tablet 25 mg PO DAILY Discontinued HumaLOG KwikPen Insulin Rx Instructions: 11 units 1000 14 units 2300 Referrals / Follow Up: Artie Segura MD [Primary Care Provider] - Disposition Disposition (needs filled in before D/C Order can be placed): Home, Self Care
[2023-12-02] MEDS: oxyCODONE 5 MG Tablet PO (09:41)
[2023-12-02] MEDS: Senna/Docusate Sodium 1 Tablet PO (10:38)
--- NOTE | 2023-12-06 15:34 | NURSING ---
12/03: Follow up questions asked in person at consult visit. Pt. denies any s+s. Reports having a good experience in [facility].
== END 2023-12-02 11:30 | disposition home or self-care (01) | DRG 788 ==
PROVIDERS: Admitting Provider Obstetrics & Gynecology; PCP Family Medicine; Referring Provider Obstetrics & Gynecology; Visit Provider Obstetrics & Gynecology
PROC: 10D00Z1 Extraction of Products of Conception, Low, Open Approach (ICD-10-PCS; CPT 59514; principal; 2023-11-30 07:00)
DX: O32.2XX0 Maternal care for transverse and oblique lie, not applicable or unspecified (principal); O24.424 Gestational diabetes mellitus in childbirth, insulin controlled; F17.210 Nicotine dependence, cigarettes, uncomplicated; F32.A Depression, unspecified; O99.334 Smoking (tobacco) complicating childbirth; Z37.0 Single live birth; O69.81X0 Labor and delivery complicated by cord around neck, without compression, not applicable or unspecified; Z3A.39 39 weeks gestation of pregnancy; O99.344 Other mental disorders complicating childbirth; O35.8XX0 Maternal care for other (suspected) fetal abnormality and damage, not applicable or unspecified; Z79.899 Other long term (current) drug therapy; Z87.59 Personal history of other complications of pregnancy, childbirth and the puerperium
CPT/HCPCS: 59025; 59050; 82962; 85025; 85027; 86780; 86850; 86900; 86901; 99221; J7120; A4216; G0378; J2405

== ENCOUNTER 2024-10-01 09:04 | Emergency (ER) | payer OTHER, MEDICAID, SELFPAY ==
[2024-10-01 09:04] VITALS: BP 165/102; PULSE 101; RESP 20; TEMP 36.3; O2SAT 100; BMI 26.1
--- NOTE | 2024-10-01 09:15 | EDS_ITS ---
HPI History of Present Illness Chief Complaint: Back Informant: patient Onset/Context/Timing Context: Gradual Onset Timing: Continuous Quality: Sharp and - (Stabbing) Location: Buttock and Right Leg Worsened by: improves with - (Sitting upright) Relieved by: Nothing Associated Symptoms Associated Symptoms: Tingling and Radiation to Right Leg; Negative for Numbness, Radiation to Left Leg, Fever, Abdominal Pain, Dysuria, Unable to Ambulate, Unable to Transfer, Urinary Retention, Urinary Incontinence, Constipation or Fecal Incontinence Narrative Narrative: Patient with sciatica pain that became worse today. Patient states she has a history of chronic sciatica pain. Patient states she has been using her home medications with no improvement. Patient states she is scheduled for an MRI tomorrow. Patient denies any bowel or bladder changes. Patient denies any saddle anesthesia. Patient denies any trauma or injury. Patient denies any recent heavy lifting. [facility] Medical History (Updated 10/01/24 @ 11:[address] Enrique Khoury DO) Sciatica HPV (human papilloma virus) infection depression Depression Anxiety Headache Gestational HTN Gestational diabetes Tension headache Back pain Herniation of intervertebral disc between L5 and S1 Migraines HTN (hypertension) Home Medications ?Medication ?Instructions ?Recorded ?Last Taken ?Type sertraline 25 mg tablet (Zoloft) 25 mg PO DAILY depression 11/30/23 11/30/23 03:00 History acetaminophen 500 mg tablet 1,000 mg (2 x 500 mg) PO Q6 #0 tabs 12/02/23 Unknown Rx ibuprofen 600 mg tablet 600 mg PO Q6H #0 tabs 12/02/23 Unknown Rx oxycodone 5 mg tablet 5 mg PO Q6H 7 days #7 tabs 12/02/23 Unknown Rx tramadol 50 mg tablet 50 mg PO Q6H PRN PRN Pain 3 days 10/01/24 Unknown Rx #12 tabs Allergy/AdvReac Type Severity Reaction Status Date / Time No Known Allergies Allergy Verified 10/01/24 09:06 Family History Grandfather Myocardial infarction Other Hypertension Surgical History (Updated 10/01/24 @ 10:[address] Enrique Khoury DO) Hx of section H/O reconstruction of anterior cruciate ligament tear Social History Smoking Status: Current every day smoker tobacco type: cigarettes alcohol intake: current Alcohol type: beer ROS ROS ED Constitutional Constitutional ED: Denies chills or fever(s) Eyes Eyes: Denies blurry vision or change in vision ENT ENT ED: Denies rhinorrhea or sore throat Cardiovascular Cardiovascular: Denies chest pain or palpitations Respiratory/Chest Respiratory/Chest: Denies cough or dyspnea Gastrointestinal Gastrointestinal: Denies nausea or vomiting Genitourinary Genitourinary ED: Denies dysuria or hematuria Musculoskeletal Musculoskeletal: Reports back pain; Denies neck pain Integumentary Denies abscess or rash Neurologic Neurologic: Denies headache(s) or weakness Allergic/Immunologic Allergic/Immunologic ED: Denies mouth swelling or urticaria EXAM Physical Exam Const Vital Signs: 10/01/24 09:04 Temperature 97.4 F L Temperature Source Oral Pulse Rate 101 H Respiratory Rate 20 H Blood Pressure 165/102 H Blood Pressure Mean 123 Pulse Ox 100 Oxygen Delivery Method Room Air Positive well nourished and well developed General Appearance ED: well developed and NAD HEENT Reports moist mucous membranes Neck supple and no JVD Back/Spine Back/Spine Narrative: There is tenderness palpation over the right sciatic notch and right gluteal area. There is no edema or ecchymosis. There is no bony crepitus or step-off. There is no lumbar spine tenderness. Range of motion was limited in all motions of the lumbar spine and sacrum secondary to pain. Strength is 5/5 bilaterally in the lower extremities. There are no sensory deficits noted. Deep tendon reflexes are 2/4 bilaterally in the lower extremities. There is radicular pain with straight leg raising on the right. Lumbar Spine / Lower Back: ROM limited and straight leg raise positive right at 30 degrees Neuro oriented x3 and no sensory deficits noted Sensorium / Orientation: alert Motor Exam: strength 5/5 throughout Deep Tendon Reflexes: Rt Patellar (L4): 2+, Lt Patellar (L4): 2+, Rt Ankle (S1): 2+ and Lt Ankle (S1): 2+ Deep Tendon Reflexes Back: Rt Patellar (L4): 2+, Lt Patellar (L4): 2+, Rt Ankle (S1): 2+ and Lt Ankle (S1): 2+ Psych mental status grossly normal MDM MDM MDM Narrative Medical decision making narrative: Patient does not meet criteria for emergent MRI at this time. Patient was advised that we will be able to provide analgesic medication for her here in the emergency department. Patient was given a prescription for a short course of tramadol. Patient will be instructed to follow-up with her MRI tomorrow as scheduled. Patient was instructed to follow-up with her primary care physician and orthopedic surgeon for results of the MRI. Patient understood and was agreeable with the plan. All questions were answered. Discharge Plan Triage Chief Complaint: Back ED Provider: Enrique Khoury Dx/Rx/DC Orders Clinical Impression: Sciatica of right side, Elevated blood pressure reading Instructions: ED Sciatica Prescriptions: New tramadol 50 mg tablet 50 mg PO Q6H PRN PRN (Reason: Pain) 3 Days Qty: 12 0RF No Action sertraline [Zoloft] 25 mg tablet 25 mg PO DAILY acetaminophen 500 mg Tablet 1,000 mg PO Q6 Qty: 0 0RF ibuprofen 600 mg Tablet 600 mg PO Q6H Qty: 0 0RF oxycodone 5 mg Tablet 5 mg PO Q6H 7 Days Qty: 7 0RF Primary Care Provider: Artie Segura Referrals: Artie Segura MD [Primary Care Provider] - 3-5 Days Print Language: Jordanian Disposition Disposition: Home, Self Care
[2024-10-01] MEDS: Morphine 4 MG/ML Syringe IM ×2 (10:19→11:10)
[2024-10-01 11:22] VITALS: BP 150/99; PULSE 70; RESP 18; TEMP 36.5; O2SAT 99
== END 2024-10-01 11:25 | disposition home or self-care (01) ==
PROVIDERS: Emergency Provider Emergency Medicine; PCP Family Medicine; Visit Provider Emergency Medicine
DX: M54.41 Lumbago with sciatica, right side (principal); R03.0 Elevated blood-pressure reading, without diagnosis of hypertension; F32.A Depression, unspecified; F41.9 Anxiety disorder, unspecified; Z79.899 Other long term (current) drug therapy; F17.210 Nicotine dependence, cigarettes, uncomplicated
CPT/HCPCS: 96372; 99282

== ENCOUNTER 2024-10-01 13:30 | Outpatient (RCR) | payer OTHER, MEDICAID, SELFPAY ==
--- NOTE | 2024-09-18 18:34 | HP.PTEVAL ---
Patient's Visit Information Visit Information Visit Information: FRANCIS RUVALCABA is a 34 year old F referred to Physical Therapy by Dr. Enrique Dyer MD with a diagnosis of LUMBAR RADICULOPATHY ,SPONDYLOSIS. Date of Evaluation: 09/18/24 Physical Therapist: Dominik Loza, PT, Cert MDT, OCS Visit Plan Frequency: 2x /Week Duration: 4 Weeks Plan: PT INTERVENTIONS ANISHA EX'S WITH PROGRESSION OF FORCES ,MANUAL THERAPY,PROGRESS TO DLS WHEN PAIN IS REDUCED ,POSTURAL EX'S AND MODALITIES FOR PAIN ,PATIENT EDUCATION POSTURE /,MECHANICS Subjective Subjective: This 34 y/o female presents to physical therapy with lumbar radiculopathy. Patient has had sciatica pain for 11 years was better, then 2 months ago shoveling stone next day pain in right leg. Pain located right LS buttock to hamstrings to calf to foot . Seen DR x-rays mild DDD plan for MRI medication gabapentin ,muscle relaxer ,tramadol . Initially ,prednisone. Denies paresthesia/tingling right Aggravating bending,lifting ,sitting ,driving and standing. Alleviating factors walking. Coughing/sneezing-. Bowel/bladder-. Patient pain affects sleeping. Patient had PT many years ago. Patient condition affects QOL and function/job demands. Patient goals to decrease pain avoid surgery. Possible pain management . 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 Right Back: Pain Intensity (Out of 10): 8 Pain Intensity Range: 10 Right Lower Extremity: Pain Intensity (Out of 10): 5 Pain Intensity Range: 10 Objective Objective: POSTURE: mild forward posture GAIT: reciprocal pattern NEURO: c/o paresthesia/tingling foot ,reflexes L3-4,LL4-5,L5-S1 1/3 ,MYOTOME RLE PALPATION: unremarkable LUMBAR ROM: flexion mod .loss pain , extension min loss , side glides min loss MMT: quads 3+/5 ,hip flexion 3+/5 ,hip flexion 3+/4 ,ankle 4/5 G-S 4-/5 ,left 4/5 Special Tests L/S Slump test left side: Negative L/S Slump test right side: Positive L/S Left Straight Leg Raise: Negative L/S Right Straight Leg Raise: Positive Lumbar Standing: Flexion - Mechanical Response: No effect Lumbar Standing: Flexion - Symptoms During Testing: Increases Lumbar Standing: Flexion - Symptoms After Testing: Worse Lumbar Standing: Extension - Mechanical Response: No effect Lumbar Standing: Extension - Symptoms During Testing: Decreases Lumbar Standing: Extension - Symptoms After Testing: Better Lumbar Standing: Right Side Glides - Mechanical Response: No effect Lumbar Standing: Right Side [place] - Symptoms During Testing: No effect Lumbar Standing: Right Side [place] - Symptoms After Testing: No effect Lumbar Standing: Left Side [place] - Mechanical Response: No effect Lumbar Standing: Left Side [place] - Symptoms During Testing: No effect Lumbar Lying: Flexion - Mechanical Response: No effect Lumbar Lying: Flexion - Symptoms During Testing: Increases Lumbar Lying: Flexion - Symptoms After Testing: Worse Lumbar Lying: Extension - Mechanical Response: No effect Lumbar Lying: Extension - Symptoms During Testing: Decreases Lumbar Lying: Extension - Symptoms After Testing: Better Balance/Special Test Scores Oswestry Low Back Score: 35 Goals Goal 1:: Patient to be I with HEP for back Goal Time Frame: 4-6 Weeks Goal 2:: Patient to demonstrate 50% improvement with less pain and improved function. 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 Goal Time Frame: 4-6 Weeks Goal 4:: Patient to improve back oswestry score by 5 points to improve functio Goal Time Frame: 4-6 Weeks Goal 5:: Patient to improve be d/c to prophylaxes to manage and decrease recurrence of pain 50% Goal Time Frame: 4-6 Weeks Rehabilitation Potential Physical Therapy Diagnosis: This patient has lumbar radiculopathy with HNP L5-S1 worse with derangement below knee worse with flexion better with extension ,positioning and motion testing walking is better thus benefit from skilled PT Rehabilitation Potential: Good Anticipated Interventions Patient/Client Instruction: Educate patient on: Condition and Plan of Care For the Purpose of:: To decrease pain, To increase ROM, To increase oxygenation perfusion, To improve ability to perform ADL's, To increase tolerance to activity/condition/position, To improve ability of physical actions for home/community/work/leisure, To improve health of tissue, To decrease soft tissue restriction, To increase flexibility/ROM, To reduce risk of recurrence and To prevent re-injury Therapeutic Exercise to Include: Strength training, Flexibilty training, Dynamic Lumbar Stabilization and Anisha Exercises For the Purpose of:: To decrease pain, To increase ROM, To improve muscle performance and motor function, To improve ability to perform ADL's, To increase tolerance to activity/condition/position, To improve ability of physical actions for home/community/work/leisure, To improve health of tissue, To decrease soft tissue restriction, To increase flexibility/ROM, To reduce risk of recurrence, To prevent re-injury and To improve tolerance to ADL's Manual Therapy Techniques to Include: Mobilization Comment: LUMBAR For the Purpose of:: To decrease pain, To increase ROM, To improve nutrient delivery to tissue, To increase oxygenation perfusion, To improve gait and locomotor functions and To improve health of tissue TENS: Yes IF ES: Yes Cryotherapy (ice pack, ice massage): Yes Thermo therapy (hot pack): Yes Ultrasound (thermal/non thermal): Yes For the Purpose of:: To decrease pain, To increase ROM, To improve nutrient delivery to tissue, To increase oxygenation perfusion, To improve health of tissue and To decrease soft tissue restriction Text: Thank you for the opportunity to evaluate your patient. For Medicare and Medicare HMO plans, please review the plan of care and approve it. It will need to be FAXED BACK to us at [phone] for Medicare purposes. For Medicare only, by signing this I certify the plan of care. Please let me know if there are questions or concerns regarding this plan of care. Physician Signature: Date:
--- NOTE | 2025-01-14 15:47 | HP.PT.NRP ---
Patient Information Patient Information: FRANCIS RUVALCABA was seen in my office for initial evaluation on 09/18/24. The following Plan of Care was established for this patient: POC Established Initial Frequency: 2x /Week Initial Duration: 4 Weeks Anticipated Interventions Patient/Client Instruction: Educate patient on: Condition and Plan of Care For the Purpose of:: To decrease pain, To increase ROM, To increase oxygenation perfusion, To improve ability to perform ADL's, To increase tolerance to activity/condition/position, To improve ability of physical actions for home/community/work/leisure, To improve health of tissue, To decrease soft tissue restriction, To increase flexibility/ROM, To reduce risk of recurrence and To prevent re-injury Therapeutic Exercise to Include: Strength training, Flexibilty training, Dynamic Lumbar Stabilization and Amado Exercises For the Purpose of:: To decrease pain, To increase ROM, To improve muscle performance and motor function, To improve ability to perform ADL's, To increase tolerance to activity/condition/position, To improve ability of physical actions for home/community/work/leisure, To improve health of tissue, To decrease soft tissue restriction, To increase flexibility/ROM, To reduce risk of recurrence, To prevent re-injury and To improve tolerance to ADL's Manual Therapy Techniques to Include: Mobilization Comment: LUMBAR For the Purpose of:: To decrease pain, To increase ROM, To improve nutrient delivery to tissue, To increase oxygenation perfusion, To improve gait and locomotor functions and To improve health of tissue TENS: Yes IF ES: Yes Cryotherapy (ice pack, ice massage): Yes Thermo therapy (hot pack): Yes Ultrasound (thermal/non thermal): Yes For the Purpose of:: To decrease pain, To increase ROM, To improve nutrient delivery to tissue, To increase oxygenation perfusion, To improve health of tissue and To decrease soft tissue restriction Last Seen Last Seen: This patient was last seen in our office . Pertinent comments regarding their Physical therapy will appear below: Patient seen for PT for lumbar radiculopathy thus had MRI showed severe stenosis and disc extrusion thus d/c At this point I will be discontinuing this patient from physical therapy. I would be happy to see this patient again in the future if found appropriate by the physician. Thank you! Dominik Loza, PT, Cert MDT, OCS Balance/Gait/Functional tests Balance/Special Test Scores Oswestry Low Back Score: 35
== END 2024-10-01 19:00 | disposition home or self-care (01) ==
LOC: PT 13:30
PROVIDERS: PCP Family Medicine; Referring Provider Orthopaedic Surgery Orthopaedic Surgery of the Spine; Visit Provider Orthopaedic Surgery Orthopaedic Surgery of the Spine
DX: M47.26 Other spondylosis with radiculopathy, lumbar region (principal)
CPT/HCPCS: 97014; 97110; 97162; 97530; G0283

== ENCOUNTER → 2024-10-02 | Outpatient (CLI) | payer OTHER, MEDICAID, SELFPAY ==
--- NOTE | 2024-10-02 15:29 | MRI_ITS ---
STUDY: MRI LUMBAR SPINE WITHOUT CONTRAST REASON FOR EXAM: Female, 34 years old. RADICULOPATHY- RIGHT LEG TECHNIQUE: Standardized fat and water weighted pulse sequences were obtained in the sagittal and axial planes. COMPARISON: October 26, 2014 FINDINGS: T12-L1: Normal endplates. Normal disc height, hydration and normal morphology. Normal bilateral facet joints. Normal central canal and bilateral lateral recesses. Normal bilateral intervertebral neural foramina. Normal lumbar lordosis. There is no substantial scoliosis. Normal conus medullaris that terminates at T12-L1 L1-2: Schmorl''s node of the superior endplate of L2 Mild anterior endplate spurring. Normal disc height, desiccation and minimal annular bulge. Normal bilateral facet joints. Normal central canal and bilateral lateral recesses. Normal bilateral intervertebral neural foramina. L2-3: Schmorl''s node of the inferior endplate of L2 and superior endplate of L3 Degenerative endplate changes. Normal disc height, desiccation and mild annular bulge. Normal bilateral facet joints. Normal central canal and bilateral lateral recesses. Normal bilateral intervertebral neural foramina. L3-4: Normal endplates. Normal disc height, hydration and morphology. Normal bilateral facet joints. Normal central canal and bilateral lateral recesses. Normal bilateral intervertebral neural foramina. L4-5: Normal endplates. Normal disc height, hydration and morphology. Normal bilateral facet joints. Normal central canal and bilateral lateral recesses. Normal bilateral intervertebral neural foramina. L5-S1: Normal endplates. Normal disc height, desiccation and annular bulge with large broad-based right paracentral/posterolateral disc extrusion with posterior inferior migration of disc fragment. Normal bilateral facet joints. Mild narrowing of the central canal and severe right lateral recess and subarticular stenosis displacing and compressing the descending right S1 nerve root. Moderate left neural foraminal stenosis and more severe narrowing on the right. Normal visualized sacral ala. Normal visualized paraspinous soft tissue structures. There has been significant progression of the disc disease at L5-S1 and more severe spinal stenosis since previous exam MRI/Spine Lumbar (Routine) IMPRESSION: Severe spinal stenosis at L5-S1 secondary to bulging annulus and large right paracentral/posterolateral disc extrusion. Electronically Signed: Ramsey Salcedo MD at 16:10 EST ,
== END | disposition home or self-care (01) ==
LOC: MRI 15:20
PROVIDERS: PCP Family Medicine; Referring Provider Orthopaedic Surgery Orthopaedic Surgery of the Spine; Visit Provider Orthopaedic Surgery Orthopaedic Surgery of the Spine
DX: M47.26 Other spondylosis with radiculopathy, lumbar region (principal)
CPT/HCPCS: 72148

== ENCOUNTER 2025-02-09 13:30 | Outpatient (RCR) | payer OTHER, SELFPAY ==
--- NOTE | 2025-01-19 15:55 | HP.PTEVAL ---
Patient's Visit Information Visit Information Visit Information: FRANCIS RUVALCABA is a 34 year old F referred to Physical Therapy by Dr. Enrique Dyer MD with a diagnosis of HD excision and decompression spinal cord. Date of Evaluation: 01/19/25 Physical Therapist: CHICO Pisano Visit Plan Frequency: 2x /Week Duration: 2 Months Plan: 2X/ week for 8 weeks for neutral spine core stability, Light HS and piriformis stretching, gait training, with HEP HEP: light supine piriformis stretching, green strap HS stretching Subjective Subjective: Pt was here before and she had surgery Oct 17 for L5-S1. She started to have pain around 6 weeks post op. She will go back at the end of the month to see if she needs an MRI. She has 2 little kids that need a lot of picking up. It hurts R side and back down the R of the leg. The more she does during the day it is worse. She did not take as much pain meds today because she wants to see what kind of pain today. She does not have full strength in her R leg and she only has 1/2 sensation in her R foot. She was doing some stretches at home. Pain is R side of back and down the R leg to the mid calf. She is sleeping through the night most of the time and she readjusts and can sleep. Dr does not heavy lifting at this time. Pain R Back pain: Pain Intensity (Out of 10): 4 R leg pain: Pain Intensity (Out of 10): 3 Objective Objective: Gait: walks with guarded posture and decrease trunk rotation and small step length Trunk AROM: flexion 25%, EXT 75%B, SB B 50% (INCREASE PAIN TO THE R),Rot L 25% and R 75% LE MMT: R hip flex 13.2 and L 13.3 R knee ext 12.6 and L 17.7 R knee flex 15.7 and L 14.9 +SLUMP test on the R for pain and tightness + SLR on the R for pain R HS is very tight as is R piriformis (hard to even get into that position) HS with green strap 20 sec X 4 R leg and supine piriformis (gentle ) 20 sec X 4 Pelvic Tilt: able to do without pain Balance/Special Test Scores Oswestry Low Back Score: 26 Goals Goal 1:: I HEP Goal Time Frame: 6-8 Weeks Goal 2:: Be able to complete ADL's with 50% less R sided back pain and R leg pain Goal Time Frame: 6-8 Weeks Goal 3:: Increase Flexibility of R hip (HS and piriformis) to be able to cross her R leg over her L with ease Goal Time Frame: 6-8 Weeks Goal 4:: Be able to walk long distances without her hip and back acting up on her Goal Time Frame: 6-8 Weeks Rehabilitation Potential Rehabilitation Potential: Good Anticipated Interventions Patient/Client Instruction: Educate patient on: Condition and Plan of Care For the Purpose of:: To decrease pain, To decrease swelling/inflammation, To increase ROM, To improve nutrient delivery to tissue, To improve muscle performance and motor function, To improve ability to perform ADL's, To increase tolerance to activity/condition/position, To improve performance and independence with ADL's, To decrease level of supervision to perform tasks, To improve ability of physical actions for home/community/work/leisure, To improve gait and locomotor functions, To improve health of tissue, To decrease soft tissue restriction, To increase flexibility/ROM and To improve safety with gait Therapeutic Exercise to Include: Strength training, Endurance training, Balance training, Body mechanics, Postural training, Flexibilty training, Gait and locomotor training, Neuromotor development, Passive ROM, Active ROM, Dynamic Lumbar Stabilization and Scapular Strength/Stabilization For the Purpose of:: To decrease pain, To increase ROM, To improve nutrient delivery to tissue, To improve muscle performance and motor function, To improve ability to perform ADL's, To increase tolerance to activity/condition/position, To improve performance and independence with ADL's, To decrease level of supervision to perform tasks, To improve ability of physical actions for home/community/work/leisure, To improve gait and locomotor functions, To improve health of tissue, To decrease soft tissue restriction, To increase flexibility/ROM, To improve endurance, To improve balance and To improve safety with gait Functional Training to Include: Gait training For the Purpose of:: To improve gait and locomotor functions Manual Therapy Techniques to Include: Passive ROM and Soft tissue mobilization For the Purpose of:: To decrease pain, To increase ROM, To improve nutrient delivery to tissue, To improve muscle performance and motor function, To improve health of tissue and To decrease soft tissue restriction Cryotherapy (ice pack, ice massage): Yes Thermo therapy (hot pack): Yes For the Purpose of:: To decrease pain, To decrease swelling/inflammation, To increase ROM, To improve nutrient delivery to tissue, To improve muscle performance and motor function and To improve ability to perform ADL's Text: Thank you for the opportunity to evaluate your patient. For Medicare and Medicare HMO plans, please review the plan of care and approve it. It will need to be FAXED BACK to us at [phone] for Medicare purposes. For Medicare only, by signing this I certify the plan of care. Please let me know if there are questions or concerns regarding this plan of care. Physician Signature: Date:
--- NOTE | 2025-06-10 10:36 | HP.PT.NRP ---
Patient Information Patient Information: FRANCIS RUVALCABA was seen in my office for initial evaluation on 01/19/25. The following Plan of Care was established for this patient: POC Established Initial Frequency: 2x /Week Initial Duration: 2 Months Anticipated Interventions Patient/Client Instruction: Educate patient on: Condition and Plan of Care For the Purpose of:: To decrease pain, To decrease swelling/inflammation, To increase ROM, To improve nutrient delivery to tissue, To improve muscle performance and motor function, To improve ability to perform ADL's, To increase tolerance to activity/condition/position, To improve performance and independence with ADL's, To decrease level of supervision to perform tasks, To improve ability of physical actions for home/community/work/leisure, To improve gait and locomotor functions, To improve health of tissue, To decrease soft tissue restriction, To increase flexibility/ROM and To improve safety with gait Therapeutic Exercise to Include: Strength training, Endurance training, Balance training, Body mechanics, Postural training, Flexibilty training, Gait and locomotor training, Neuromotor development, Passive ROM, Active ROM, Dynamic Lumbar Stabilization and Scapular Strength/Stabilization For the Purpose of:: To decrease pain, To increase ROM, To improve nutrient delivery to tissue, To improve muscle performance and motor function, To improve ability to perform ADL's, To increase tolerance to activity/condition/position, To improve performance and independence with ADL's, To decrease level of supervision to perform tasks, To improve ability of physical actions for home/community/work/leisure, To improve gait and locomotor functions, To improve health of tissue, To decrease soft tissue restriction, To increase flexibility/ROM, To improve endurance, To improve balance and To improve safety with gait Functional Training to Include: Gait training For the Purpose of:: To improve gait and locomotor functions Manual Therapy Techniques to Include: Passive ROM and Soft tissue mobilization For the Purpose of:: To decrease pain, To increase ROM, To improve nutrient delivery to tissue, To improve muscle performance and motor function, To improve health of tissue and To decrease soft tissue restriction Cryotherapy (ice pack, ice massage): Yes Thermo therapy (hot pack): Yes For the Purpose of:: To decrease pain, To decrease swelling/inflammation, To increase ROM, To improve nutrient delivery to tissue, To improve muscle performance and motor function and To improve ability to perform ADL's Last Seen Last Seen: This patient was last seen in our office 02/09/25. Pertinent comments regarding their Physical therapy will appear below: DC PT At this point I will be discontinuing this patient from physical therapy. I would be happy to see this patient again in the future if found appropriate by the physician. Thank you! Beth Mcgee, CHICO Balance/Gait/Functional tests Balance/Special Test Scores Oswestry Low Back Score: 26
== END 2025-02-09 19:00 | disposition home or self-care (01) ==
LOC: PT 13:30
PROVIDERS: PCP Family Medicine; Referring Provider Orthopaedic Surgery Orthopaedic Surgery of the Spine; Visit Provider Orthopaedic Surgery Orthopaedic Surgery of the Spine
DX: M51.16 Intervertebral disc disorders with radiculopathy, lumbar region (principal); Z90.89 Acquired absence of other organs
CPT/HCPCS: 97110; 97140; 97161

== ENCOUNTER → 2025-07-06 | Outpatient (CLI) | payer OTHER, SELFPAY ==
[2025-07-06 18:23] LABS: T4 Total, Thyroxin 5.4 ug/dL (4.8-13.9)
[2025-07-06 18:29] LABS: CRP < 3.00 mg/L (0.0-3.0)
[2025-07-08 16:09] LABS: Immunoglobulin A 139 mg/dL (87-352)
== END | disposition home or self-care (01) ==
LOC: MTLAB 16:22
PROVIDERS: PCP Family Medicine; Referring Provider Internal Medicine Gastroenterology; Visit Provider Internal Medicine Gastroenterology
DX: R19.7 Diarrhea, unspecified (principal)
CPT/HCPCS: 36415; 82784; 83516; 84436; 84443; 86140; 86255

== ENCOUNTER → 2025-07-14 | Outpatient (CLI) | payer OTHER, SELFPAY ==
--- NOTE | 2025-07-14 09:45 | RAD_ITS ---
PROCEDURE: RAD/Small Bowel Series Only
== END | disposition home or self-care (01) ==
LOC: RAD 09:41
PROVIDERS: PCP Family Medicine; Referring Provider Internal Medicine Gastroenterology; Visit Provider Internal Medicine Gastroenterology
DX: R19.7 Diarrhea, unspecified (principal); R10.9 Unspecified abdominal pain
CPT/HCPCS: 74250

== ENCOUNTER 2025-08-09 17:43 | Emergency (ER) | payer OTHER, SELFPAY ==
[2025-08-09 17:43] VITALS: BP 161/107; PULSE 111; RESP 14; TEMP 36.1; O2SAT 98; BMI 25.4
--- NOTE | 2025-08-09 18:01 | EX.ED.DYSGE1 ---
HPI History of Present Illness Chief Complaint: Abd Pain Detail of Chief Complaint: Worsening right upper quadrant pain since Father's Day Informant: patient Onset/Context/Timing Onset: Month(s) and - (Patient is had pain for years. Worse since Father's Day) Context: Sudden Onset Timing: Continuous and Waxes and wanes Quality: Pain Location: Right upper quadrant Current Severity: Severe Maximum Severity: Severe Worsened by: Nothing specific Relieved by: Nothing Associated Symptoms Associated Symptoms: No other symptoms Narrative Narrative: Patient is a 35-year-old woman. She is seen by Dr. Valentine. She was diagnosed several years ago with IBS. She states Crohn's and also colitis was ruled out. She did have an ultrasound of her gallbladder. She states she had 1 more recent in 2019. The ultrasound of the gallbladder in 2019 was normal. She denies intolerance to greasy or fried foods. She denies dysuria, frequency, urgency or hematuria. She denies history of renal ureterolithiasis. She is not was concerned that it may be appendicitis because her father had appendicitis. She was informed she would not have pain for 6 months if this was appendicitis. She has undergone EGD and colonoscopy by Dr. Valentine. Those were negative. She had recent small bowel x-rays with contrast which revealed the contrast to go through the small bowel within 15 minutes. There was no abnormality noted by radiologist. There was even comment that the the contrast had gotten into the colon and the colon did not appear abnormal. She denies any change in color, consistency or frequency of her bowel movements. There is no change in the caliber of her stool either. Patient denies dysuria, frequency, urgency hematuria. Patient states her menses ended 2 days ago and was normal. She denies vaginal discharge. She has no history of endometriosis. There is no history of trauma. There is no skin lesions. Patient is on antidepressant. Patient does give history of gestational diabetes. She does not have a history of diabetes, however. Prior similar symptoms: Yes Recent Illness/Hospitalization: No PFSH PFSH Medical History Sciatica HPV (human papilloma virus) infection depression Depression Anxiety Headache Gestational HTN Gestational diabetes Tension headache Back pain Herniation of intervertebral disc between L5 and S1 Migraines HTN (hypertension) Home Medications ?Medication ?Instructions ?Recorded ?Last Taken ?Type sertraline 25 mg tablet (Zoloft) 25 mg PO DAILY depression 11/30/23 11/30/23 03:00 History acetaminophen 500 mg tablet 1,000 mg (2 x 500 mg) PO Q6 #0 tabs 12/02/23 Unknown Rx ibuprofen 600 mg tablet 600 mg PO Q6H #0 tabs 12/02/23 Unknown Rx oxycodone 5 mg tablet 5 mg PO Q6H 7 days #7 tabs 12/02/23 Unknown Rx tramadol 50 mg tablet 50 mg PO Q6H PRN PRN Pain 3 days 10/01/24 Unknown Rx #12 tabs Allergy/AdvReac Type Severity Reaction Status Date / Time No Known Allergies Allergy Verified 08/09/25 17:45 Family History Grandfather Myocardial infarction Other Hypertension Surgical History Hx of section H/O reconstruction of anterior cruciate ligament tear Social History Smoking Status: Current every day smoker tobacco type: cigarettes alcohol intake: current Alcohol type: beer ROS ROS ED Constitutional Constitutional ED: Denies chills, fever(s), subjective, sweats or weight loss Eyes Eyes: Denies blurry vision, change in vision or diplopia ENT ENT ED: Denies ear pain, rhinorrhea or sore throat Cardiovascular Cardiovascular: Denies chest pain or palpitations Respiratory/Chest Respiratory/Chest: Denies cough, dyspnea or dyspnea on exertion Gastrointestinal Gastrointestinal: Denies abdominal pain, constipation, diarrhea, nausea or vomiting Genitourinary Genitourinary ED: Denies dysuria, hematuria or urinary frequency Musculoskeletal Musculoskeletal: Denies arthralgias or myalgias Integumentary Denies abscess, Abrasions or rash Neurologic Neurologic: Denies headache(s), paresthesias or weakness Psychiatric Psychiatric: Denies anxiety, depression or suicidal ideation Endocrine Endocrinology: Denies cold intolerance or heat intolerance Hematologic/Lymphatic Hematologic/Lymphatic: Reports systems reviewed and no addt'l complaints, except as documented EXAM Physical Exam Const Vital Signs: 08/09/25 17:43 08/09/25 18:07 08/09/25 20:49 Temperature 97 F L Temperature Source Temporal Pulse Rate 111 H 91 77 Respiratory Rate 14 17 13 Blood Pressure 161/107 H 122/79 H 146/97 H Blood Pressure Mean 125 93 106 Pulse Ox 98 97 97 Oxygen Delivery Method Room Air Room Air Positive well nourished and well developed Constitutional Narrative: When entering the room she was on her cell phone. She was smiling. After playing on her cell phone she was no Pflug or smiling. General Appearance ED: well developed; Negative for cyanotic, diaphoretic or pallor HEENT Reports moist mucous membranes HEENT Narrative: Head is atraumatic and normocephalic. Ears normal. Nares patent. Eyes PERRL and EOMs intact bilaterally General Eye ED: Negative for pale conjunctiva or scleral icterus Neck no lymphadenopathy, supple and no JVD Chest Wall inspection of chest normal and palpation of chest normal Resp normal respiratory effort and clear to auscultation bilaterally Cardio regular rhythm, S1 normal heart sound, S2 normal heart sound and no murmurs Rate: tachycardic GI normal to inspection, nondistended, normoactive bowel sounds, non-tender, non-distended and no masses; Negative for hepatosplenomegaly GI Narrative: There is no tenderness to the abdomen with distraction. Otherwise she had some minimal discomfort in the epigastric area. Palpation: soft Back/Spine no CVA tenderness Extremity normal to inspection Neuro oriented x3, CN's II-XII intact bilaterally and no sensory deficits noted Sensorium / Orientation: alert Motor Exam: strength 5/5 throughout Psych mental status grossly normal Skin no rashes or lesions noted, no wounds and skin turgor normal General Skin Exam: elasticity normal; Negative for jaundice or pallor MDM MDM MDM Narrative Medical decision making narrative: Reviewed prior records. Differential diagnosis is abdominal pain of unknown etiology, IBS, doubt biliary colic/cholecystitis, doubt right lower lobe pneumonia and doubt pathology. Since patient had recent imaging and there is no abnormality noted of the intestines at this point do not believe there is any indication for repeat imaging. Will obtain blood work. If this is abnormal and specifically if the liver enzymes are elevated we will obtain ultrasound of the right upper quadrant. History & Record Review Additional record(s) reviewed:: Prior outpatient record and Prior labs Lab Data Attestation: I reviewed the patient's lab results. Lab results narrative: In light of upper abdominal pain leukocytosis and elevated total bili and direct bili will obtain ultrasound specially since the tach is here for another patient. The sensitivity of ultrasound versus CAT scan is 95% versus 75%. Labs: Laboratory Results - last 24 hr 08/09/25 18:05 WBC 14.6 H RBC 5.60 H Hgb 17.6 H Hct 49.8 H MCV 88.9 MCH 31.4 MCHC 35.3 RDW Std Deviation 42.1 RDW Coeff of Elva 12.8 Plt Count 308 MPV 9.4 Immature Gran % (Auto) 0.300 Neut % (Auto) 75.1 H Lymph % (Auto) 16.3 L Young % (Auto) 6.9 Eos % (Auto) 1.0 Baso % (Auto) 0.4 Absolute Neuts (auto) 10.9 H Absolute Lymphs (auto) 2.37 Nucleated RBC % 0 Sodium 138 Potassium 3.4 Chloride 101 Carbon Dioxide 20.9 L Anion Gap 16 H BUN 9 Creatinine 0.78 Estim Creat Clear Calc 99.47 Est GFR (MDRD) Non-Af 103 BUN/Creatinine Ratio 11.8 Glucose 131 H Calcium 9.3 Total Bilirubin 1.44 H Direct Bilirubin 0.57 H AST 32 ALT 18 Alkaline Phosphatase 71 Total Protein 7.6 Albumin 4.7 Globulin 2.9 Lipase 20 Ultrasound was obtained because of elevated total bili and direct bili. Also she has not had an ultrasound since 2019. The gallbladder length is within normal limits. The gallbladder wall is within normal limits. The common bile duct is within normal limits. I do not appreciate any evidence of sludge or cholelithiasis. Awaiting formal read by radiologist, 2058 Radiography Diagnostic Testing: Clinical Impression(s) from Imaging Studies Gallbladder Ultrasound 08/09/25 19:17 IMPRESSION: No acute cholecystitis. Reading Location: [facility] The interpretation of the gallbladder/right upper quadrant ultrasound by radiology was reviewed. There is no findings. In light of this patient be discharged to home to follow-up with Dr. Valentine. Is a told by the charge nurse that she was complaining of pain. She was given 20 of Bentyl. Since this has been an issue since 2019 in my opinion open analgesics are not indicated. Discharge Plan Triage Chief Complaint: Abd Pain ED Provider: GriderNarendra Dx/Rx/DC Orders Clinical Impression: Intractable right upper quadrant abdominal pain, Elevated blood-pressure reading without diagnosis of hypertension, Sinus tachycardia seen on switchgear repairer, History of depression, Serum total bilirubin elevated, Nondiabetic hyperglycemia Instructions: ED Abdominal Pain Unkn Cause Fem, ED Hypertension, To Be Confirmed, ED Hyperglycemia New Poss Diabetes Prescriptions: No Action sertraline [Zoloft] 25 mg tablet 25 mg PO DAILY acetaminophen 500 mg Tablet 1,000 mg PO Q6 Qty: 0 0RF ibuprofen 600 mg Tablet 600 mg PO Q6H Qty: 0 0RF oxycodone 5 mg Tablet 5 mg PO Q6H 7 Days Qty: 7 0RF tramadol 50 mg tablet 50 mg PO Q6H PRN PRN (Reason: Pain) 3 Days Qty: 12 0RF Primary Care Provider: Artie Segura Referrals: Artie Segura MD [Primary Care Provider, Family Practice] - 3-5 Days Activity Restrictions/Additional Instructions: The cause of your pain is unknown. Recommend you follow-up with Dr. Artie Segura and Dr. Mason Osborn. Your blood pressure was found to be elevated during your ER stay. This will need to be rechecked by Dr. Artie Segura. Print Language: Arabic Disposition Disposition: Home, Self Care
[2025-08-09 18:07] VITALS: BP 122/79; PULSE 91; RESP 17; O2SAT 97
[2025-08-09 18:12] LABS: Hematocrit 49.8 % (37-47); Hemoglobin 17.6 g/dL (12.0-15.0); Immature Granulocytes Count 0.040 X10^3/uL (0.0-0.0); Mean Corp Hgb Conc 35.3 g/dL (32-36); Mean Corpuscular Volume 88.9 fL (81-99); Mean Platelet Vol. 9.4 fl (6.2-12.0); NRBC Flagged by Analyzer 0 % (0-5); Platelet Count 308 K/mm3 (150-450); RBC Distribution Width CV 12.8 % (11.6-14.6); RBC Distribution Width SD 42.1 fl (35.1-43.9); Red Blood Count 5.60 M/mm3 (4.2-5.4); White Blood Count 14.6 K/mm3 (4.4-11.0)
--- OUTSIDE RECORDS SUMMARY | 2025-08-09 18:27 | XMS RPT_ITS | CCD ---
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 Name Role Phone Margarita Mosley Unavailable [place] Canelo A Admitting Unavailable Beltre, Canelo A Attending Unavailable Melany Margarita G Primary Care Provider [phone] Ab Rojas Admitting Unavailable Ab Rojas Attending Unavailable Margarita Mosley G Primary Care Unavailable Beltre, Canelo A Admitting Unavailable Beltre, Canelo A Attending Unavailable Melany Margarita G Primary Care Unavailable Melany, Margarita G Primary Care Unavailable Beltre, Canelo A Admitting Unavailable Beltre, Canelo A Attending Unavailable Beltre, Canelo A Admitting Unavailable Beltre, Canelo A Attending Unavailable Melany Margarita G Primary Care Unavailable BELTRE, CANELO NADER Admitting Unavailable SOHEILA COLMENARES Attending Unavailable BELTRE CANELO NADER Referring Unavailable MELANY MARGARITA G Primary Care Unavailable BELTRE, CANELO NADER Admitting Unavailable DORI MOYA Attending Unavailable BELTRE CANELO NADER Referring Unavailable MELANY, MARGARITA G Primary Care Unavailable BELTRE, CANELO NADER Admitting Unavailable IRIS KELLY Attending Unavailable BELTRE, CANELO NADER Referring Unavailable MELANY, MARGARITA G Primary Care Unavailable BELTRE, CANELO NADER Admitting Unavailable DARRIANSABINA WhitmanIKA Attending Unavailable BELTRE, CANELO NADER Referring Unavailable MELANY, MARGARITA G Primary Care Unavailable BELTRE, CANELO NADER Admitting Unavailable SABINA COLMENARESIKA Attending Unavailable BELTRE, CANELO NADER Referring Unavailable MELANY MARGARITA G Primary Care Unavailable BELTRE, CANELO NADER Admitting Unavailable BHAVESH MOYAEE Attending Unavailable BELTRE, CANELO NADER Referring Unavailable MELANY, MARGARITA G Primary Care Unavailable BELTRE, CANELO NADER Admitting Unavailable SABINA COLMENARESIKA Attending Unavailable BELTRE, CANELO NADER Referring Unavailable MELANY, MARGARITA G Primary Care Unavailable BELTRE, CANELO NADER Admitting Unavailable DARRIAN, SOHEILA Attending Unavailable BELTRE, CANELO NADER Referring Unavailable MELANY, MARGARITA G Primary Care Unavailable BELTRE, CANELO NADER Admitting Unavailable DARRIAN, SOHEILA Attending Unavailable BELTRE, CANELO NADER Referring Unavailable MELANY, MARGARITA G Primary Care Unavailable BELTRE, CANELO NADER Admitting Unavailable DARRIAN, SOHEILA Attending Unavailable BELTRE, CANELO NADER Referring Unavailable MELANY, MARGARITA G Primary Care Unavailable BELTRE, CANELO NADER Admitting Unavailable DARRIAN, SOHEILA Attending Unavailable BELTRE, CANELO NADER Referring Unavailable MELANY, MARGARITA G Primary Care Unavailable BELTRE, CANELO NADER Admitting Unavailable DANIEL MCNALLY Attending Unavailable BELTRE, CANELO NADER Referring Unavailable MELANY, MARGARITA G Primary Care Unavailable BELTRE, CANELO NADER Admitting Unavailable DORI MOYA Attending Unavailable BELTRE, CANELO NADER Referring Unavailable MELANY, MARGARITA G Primary Care Unavailable BELTRE, CANELO NADER Admitting Unavailable DARRIANSABINASOHEILA Attending Unavailable BELTRE, CANELO NADER Referring Unavailable MELANY, MARGARITA G Primary Care Unavailable BELTRE, ROSENDA A. Admitting Unavailable DORI MOYA Attending Unavailable BELTRE, CANELO NADER Referring Unavailable MELANY, MARGARITA G Primary Care Unavailable BELTRE, ROSENDA A. Admitting Unavailable ELINA VÁSQUEZ Attending Unavailable BELTRE, CANELO NADER Referring Unavailable MELANY, MARGARITA G Primary Care Unavailable BELTRE, ROSENDA A. Admitting Unavailable AIYANA HERNANDEZ Attending Unavailable BELTRE, CANELO NADER Referring Unavailable MELANY, MARGARITA G Primary Care Unavailable BELTRE, CANELO NADER Admitting Unavailable ELINA VÁSQUEZ Attending Unavailable BELTRE, CANELO NADER Referring Unavailable MELANY, MARGARITA G Primary Care Unavailable BELTRE, CANELO NADER Admitting Unavailable DORI MOYA Attending Unavailable BELTRE, CANELO NADER Referring Unavailable MELANY, MARGARITA G Primary Care Unavailable BELTRE, CANELO NADER Admitting Unavailable ELINA VÁSQUEZ Attending Unavailable BELTRE, CANELO NADER Referring Unavailable MELANY, MARGARITA G Primary Care Unavailable BELTRE, CANELO NADER Admitting Unavailable AUNGERELINA Attending Unavailable BELTRE, CANELO NADER Referring Unavailable MELANY, MARGARITA G Primary Care Unavailable BELTRE, CANELO NADER Admitting Unavailable SOHEILA COLMENARES Attending Unavailable BELTRE, CANELO NADER Referring Unavailable MELANY, MARGARITA G Primary Care Unavailable BELTRE, CANELO NADER Admitting Unavailable SABINA COLMENARESIKA Attending Unavailable BELTRE, CANELO NADER Referring Unavailable MELANY, MARGARITA G Primary Care Unavailable BELTRE, CANELO NADER Admitting Unavailable DORI MOYA Attending Unavailable BELTRE, CANELO NADER Referring Unavailable MELANY, MARGARITA G Primary Care Unavailable BELTRE, CANELO NADER Admitting Unavailable ELINA VÁSQUEZ Attending Unavailable BELTRE, CANELO NADER Referring Unavailable MELANY, MARGARITA G Primary Care Unavailable BELTRE, CANELO DOE Attending Unavailable MELANY, MARGARITA G Primary Care Unavailable BELTRE, CANELO DOE Attending Unavailable MELANY, MARGARITA G Primary Care Unavailable KOBI RAMIREZ Attending Unavailable MELANY, MARGARITA G Primary Care Unavailable BELTRECANELO Attending Unavailable MELANY, MARGARITA G Primary Care Unavailable BELTRECANELO Attending Unavailable MELANY, MARGARITA G Primary Care Unavailable BELTRE, CANELO DOE Attending Unavailable MELANY, MARGARITA G Primary Care Unavailable SHENBERGERKOBI L Attending Unavailable MELANY, MARGARITA G Primary Care Unavailable BELTRE, CANEOL DOE Attending Unavailable BELTRE, CANELO NADER Attending Unavailable MELANY, MARGARITA G Primary Care Unavailable BELTRE, CANELO NADER Admitting Unavailable BELTRE, CANELO NADER Referring Unavailable MELANY, MARGARITA G Primary Care Unavailable BELTRECANELO Attending Unavailable MELANY, MARGARITA G Primary Care Unavailable BELTRECANELO Attending Unavailable MELANY, MARGARITA G Primary Care Unavailable BELTRECANELO Attending Unavailable MELANY, MARGARITA G Primary Care Unavailable BELTRE, CANELO NADER Attending Unavailable MELANY, MARGARITA G Primary Care Unavailable Melany, Margarita G Unavailable Unavailable Unavailable Melany, Margarita G Unavailable Lonnie Mahan Unavailable Unavailable Jose Carlos Petty Unavailable Angie Alba Unavailable Unavailable Tejinder, Altagracia Unavailable Unavailable Unavailable Unavailable Keisha Armas Unavailable Margarita Mosley MD Primary Care Provider Margarita Mosley MD Primary Care Provider Anton Hernandez Referring Unavailable Anton Hernandez Attending Unavailable Melany, Dr. Margarita Carlin Primary Care Unava ilable Anton Hernandez Attending Unavailable Melany, Dr. Margarita Carlin Primary Care Unava ilable Melany VERDUGO, Margarita Carlin Primary Care Provider Chanda VERDUGO, Keisha Unavailable Melany VERDUGO, Margarita Carlin Primary Care Provider GONZALEZ LARKIN Attending Unavailab MARGARITA Roberts Primary Care Unavailable Melany VERDUGO, Dr. Alva Primary Care Provider Peng MARSHALL, Dr. Nunez Attending Provider Dr. Enrique Khoury DO Emergency Provider Gomez VERDUGO, Dr. Enrique Zeng Attending Provider Gomez VERDUGO, Dr. Enrique Zeng Referring Provider Enrique Dyer MD Unavailable NONE, NONE Unavailable Unavailable Margarita Mosley MD Unavailable Dr. Margarita Mosley MD Primary Care Physician Gomez VERDUGO, Dr. Enrique Zeng Attending Physician Dr. Enrique Dyer MD Referring Provider MARGARITA MOSLEY Attending Unavailab le MELANY, MARGARITA CARLIN Primary Care Unavailab le MELANYMARGARITA Attending Unavailab le MELANYMARGARITA Primary Care Unavailab le MELANYMARGARITA Attending Unavailab le MELANYMARGARITA Primary Care Unavailab le MELANYMARGARITA Attending Unavailab le MELANY, MARGARITA CARLIN Primary Care Unavailab le MELANYMARGARITA Referring Unavailab le MELANYMARGARITA Primary Care Unavailab le MELANYMARGARITA Referring Unavailab le MELANY, MARGARITA CARLIN Primary Care Unavailab le MELANY, MARGARITA CARLIN Primary Care Unavailab le JULEE BANKS Attending Unavailable CHRIS LAW Attending Unavailable MELANYMARGARITA RAEGAN Primary Care Unavailab Margarita Mosley Primary Care Unavailable [facility] Referring Unavailable Melany Margarita Primary Care Unavailable Mason Osborn Attending [facility] Referring Unavailable Melany Margarita Primary Care Unavailable Enrique Dyer Attending Unavailable Enrique Dyer Referring Unavailable Melany Margarita Primary Care Unavailable Enrique Dyer Attending Unavailable Enrique Dyer Referring Unavailable Melany Margarita Primary Care Unavailable Enrique Dyer Referring Unavailable Enrique Dyer Attending Unavailable MelanyMargarita Primary Care Unavailable Enrique Khoury Attending Unavailable Enrique Dyer Attending Unavailable MelanyMargarita Primary Care Unavailable Enrique Dyer Referring Unavailable Allergies Allergy Classification Reported Allergen(s) Allergy Type Date of Onset Reaction(s) Facility (1 source) Environmental allergy; Translations: [Environmental allergy] Propensity to adverse reactions (disorder) [facility] Repository (1 source) No Known Medication Allergies; Translations: [No Known Medication Allergies] Propensity to adverse reactions to drug (disorder) [facility] Repository (20 sources) Pollen; Translations: [POLLEN] Allergy to substance 4 Other: See Comments [facility] Work Phone: Medications Current Medications Medication Drug Class(es) Dates Sig (Normalized) Sig (Original) acetaminophen 500 mg oral tablet (4 sources) Start: 12-02-2023 take 2 tablets by mouth every six hours Start: 12-02-2023 take 1000 mg by mout h every six hours Acetaminophen Active 1000 MG PO EVERY 6 HOURS 0 December 02, 2023 12:00am take 2 tablets by mo uth every six hours Tylenol 500 mg oral tablet ; 2 tab(s) orally every 6 hours Quantity: 0 Refills: 0 Ordered: 13-Dec-2021 Maria Isabel Luciano Generic Substitution Allowed acetaminophen 325 mg / HYDROcodone bitartrate 5 mg oral tablet (20 sources) Opioid Agonist Start: 12-16-2018 HYDROcodone-acetaminophen (NORCO) 5-325 mg per tablet alpha-tocopherol acetate 30 unt / ascorbic acid 100 mg / beta carotene 1000 unt / calcium carbonate 200 mg / calcium pantothenate 7 mg / cholecalciferol 400 unt / docusate sodium 25 mg / ferrous fumarate 29 mg / folic acid 1 mg / niacinamide 15 mg / pyridoxine hydrochloride 20 mg / riboflavin 3 mg / thiamine 3 mg / vitamin b12 0.012 mg / zinc oxide 20 mg oral tablet (1 source) Vitamin B12, Vitamin D, Vitamin C take 1 tablet by mouth once daily AD oral tablet ; 1 tab(s) orally once a day Quantity: 0 Refills: 0 Ordered: 26-Dec-2021 Diego Porter Generic Substitution Allowed ALPRAZolam 0.25 mg oral tablet (20 sources) Benzodiazepine Start: 02-25-2025 End: 05-26-2025 take 1 tablet by mouth every six hours as needed for anxiety and anxiety ALPRAZolam (XANAX) 0.25 mg tablet Indications: Anxiety Take 1 tablet by mouth every 6 hours as needed for anxiety for up to 90 days. 30 tablet 2 02/25/2025 05/26/2025 Active Start: 02-04-2025 End: 02-09-2025 take 1 tablet by mouth every six hours as needed for anxiety and anxiety ALPRAZolam (XANAX) 0.25 mg tablet Indications: Anxiety Take 1 tablet by mouth every 6 hours as needed for anxiety for up to 5 days. 20 tablet 02/04/2025 02/09/2025 Active Start: 03-16-2023 End: 11-04-2024 take 1 tablet by mouth every six hours as needed for anxiety and anxiety ALPRAZolam (XANAX) 0.25 mg tablet Indications: Anxiety Take 1 tablet by mouth every 6 hours as needed for anxiety for up to 90 days. 60 tablet 08/06/2024 11/04/2024 Active Start: 11-13-2022 End: 12-13-2022 take 1 tablet by mouth every 30 days as needed ALPRAZolam (XANAX) 0.25 mg tablet Indications: Anxiety Take 1 tablet by mouth as needed for up to 30 days. 30 tablet 2 11/13/2022 12/13/2022 Active Start: 06-27-2019 End: 11-30-2023 take 1 tablet by mouth once daily Alprazolam (Xanax) 0.25 mg tablet Discontinued 0.25 mg PO DAILY June 27, 2019 12:00am November 30, 2023 5:39am alprazolam (XANA X ORAL) Take by mouth . 0 Active alprazolam (XANA X ORAL) Take by mouth . Active Comment on above: Take 1 tablet by oliva th as needed for up to 30 days. Take 0.25 mg by mout h at bedtime as needed. Take 0.25 mg by mout h. cephalexin 500 mg oral capsule (1 source) Cephalosporin Antibacterial Start: End: take 1 capsule by mouth four times daily cephALEXin (KEFLEX) 500 mg capsule Take 1 capsule by mouth four times daily for 7 days. 28 capsule 0 11/06/2023 11/13/2023 Active Comment on above: Take 1 capsule by mo uth four times daily for 7 days. cyclobenzaprine hydrochloride 10 mg oral tablet (20 sources) Muscle Relaxant Start: End: cyclobenzaprine 10 mg tablet Take 1 tablet by mouth every eight hours as needed muscle spasms for 30 days for muscle spasms active - Enrique Dyer MD, [address] [facility] [address] [facility] End: 11-13-2022 take 1 tablet by mouth every eight hours as needed cyclobenzaprine (FLEXERIL) 10 mg tablet Take 10 mg by mouth three times daily as needed. 0 11/13/2022 Discontinued (Other) cyclobenzaprine HCl (FLEXERIL ORAL) Take by mouth . 0 Active cyclobenzaprine HCl (FLEXERIL ORAL) Take by mouth . Active Comment on above: Take 10 mg by mouth three times daily as needed. doxycycline monohydrate 100 mg oral tablet (1 source) Tetracycline-class Drug doxycycline monohydrate 100 mg tablet Take 1 tablet twice a day for 7 days active Rene Lux LPN [facility] 168 hr estradiol 0.97402 mg/hr transdermal system (10 sources) Estrogen Start: 9 estradiol (CLIMARA) 0.05 mg/24 hr APPLY PATCH TO DRY SKIN ONCE EACH WEEK. HOLD DURING MENSES. 2 03/06/2019 Active gabapentin 300 mg oral capsule (14 sources) Anti-epileptic Agent Start: take 1 capsule by mouth three times daily gabapentin (NEURONTIN) 300 mg capsule TAKE 1 CAPSULE BY MOUTH THREE TIMES DAILY DIRECTED 08/28/2024 Active ibuprofen 600 mg oral tablet (6 sources) Nonsteroidal Anti-inflammatory Drug Start: take 1 tablet by mouth every six hours Start: 12-30-2021 take 1 tablet by oliva th every six hours as needed for pain Ibuprofen 600 MG Oral Tablet TAKE 1 TABLET BY MOUTH EVERY 6 HOURS NEEDED FOR PAIN Quantity: 40 Refills: 0 Ordered: 30-Dec-2021 DO Start : 30-Dec-2021 Active insulin aspart, human (1 source) Insulin Analog NovoLOG Quantity : 0 Refills: 0 Ordered: 14-Sep-2021 Altagracia Marr Status: Discontinued Generic Substitution Allowed meloxicam 15 mg oral tablet (15 sources) Nonsteroidal Anti-inflammatory Drug Start: 2023 End: 2024 take 1 tablet by mouth once meloxicam (MOBIC) 15 mg tablet Take 1 tablet by mouth every afternoon. 08/28/2024 Active methylPREDNISolone (6 sources) Corticosteroid Start: 2023 End: 2023 methylPREDNISolone (MEDROL, TIM,) 4 mg Dose-Pack Take as instructed per package. 21 tablet 08/06/2024 08/12/2024 Active ondansetron 4 mg disintegrating oral tablet (20 sources) Serotonin-3 Receptor Antagonist Start: 2024 take 1 tablet by mouth every eight hours as needed ondansetron orally disintegrating (ZOFRAN ODT) 4 mg disintegrating tablet Take 1 tablet by mouth every 8 hours as needed for nausea/vomiting. 15 tablet 02/25/2025 Active Start: 07-27-2023 take 1 tablet by oliva th every eight hours as needed ondansetron (ZOFRAN) 4 mg tablet Take 1 tablet by mouth every 8 hours as needed for nausea/vomiting. 30 tablet 1 07/27/2023 Active Comment on above: Take 1 tablet by oliva th every 8 hours as needed for nausea/vomiting. oxyCODONE hydrochloride 5 mg oral tablet (3 sources) Opioid Agonist Start: 12-02-19 take 1 tablet by mouth every six hours 1 oral capsule (2 sources) 1 oral capsule Quantity: 0 Refills: 0 Ordered: 04-Jul-2021 Jason Pina Generic Substitution Allowed sertraline 50 mg oral tablet (20 sources) Serotonin Reuptake Inhibitor Start: 08-06-20 End: 08-06-20 take 1 tablet by mouth once daily, then take 0.5 tablet by mouth once daily sertraline (ZOLOFT) 50 mg tablet Take 1 tablet by mouth once daily. After taking 1/2 tab every day for the first week, 90 tablet 3 08/06/2024 08/06/2025 Active Start: 11-01-2021 End: 01-27-2025 take 1 tablet by mouth once daily Start: 11-01-2021 End: 11-13-2022 sertraline (ZOLOFT) 25 mg ta blet Take by mouth q 24 HR. 0 11/01/2021 11/13/2022 Discontinued Comment on above: Take 1 tablet by oliva th once daily. Take by mouth q 24 H R. traMADol hydrochloride 50 mg oral tablet (20 sources) Opioid Agonist Start: 12-31-2024 take 1 tablet by mouth every four hours for pain traMADol (ULTRAM) 50 mg tablet TAKE 1 TABLET BY MOUTH EVERY 4 HOURS FOR PAIN FOR 7 DAYS 12/31/2024 Active Start: 10-01-2024 End: 10-11-2024 take 1 tablet by mouth every six hours as needed for pain Start: 09-17-2024 End: 09-24-2024 take 1 tablet by mouth every six hours as needed for pain traMADol (ULTRAM) 50 mg tablet Indications: Acute midline low back pain with right-sided sciatica Take 1 tablet by mouth every 6 hours as needed for pain for up to 7 days. 28 tablet 09/17/2024 09/24/2024 Active Start: 08-18-2024 End: 08-25-2024 take 1 tablet by mouth every six hours as needed for pain traMADol (ULTRAM) 50 mg tablet Indications: Acute midline low back pain with right-sided sciatica Take 1 tablet by mouth every 6 hours as needed for pain for up to 7 days. 28 tablet 08/18/2024 08/25/2024 Active Start: 08-06-2024 End: 08-13-2024 take 1 tablet by mouth every six hours as needed for pain traMADol (ULTRAM) 50 mg tablet Indications: Acute midline low back pain with right-sided sciatica Take 1 tablet by mouth every 6 hours as needed for pain for up to 7 days. 28 tablet 08/06/2024 08/13/2024 Active Completed/Discontinued Medications Medication Drug Class(es) Dates Sig (Normalized) Sig (Original) aspirin 81 mg delayed release oral tablet (20 sources) Platelet Aggregation Inhibitor, Nonsteroidal Anti-inflammatory Drug Start: 06-24-2021 take 2 tablets by mouth once daily Aspirin 81 MG Oral Tablet Delayed Release TAKE 2 TABLET Daily Quantity: 60 Refills: 11 Ordered: 24-Jun-2021 Jose Carlos Petty DO Start : 24-Jun-2021 Active take 2 tablets by mo ut once daily at bedtime aspirin 81 mg oral tablet ; 2 tab(s) ora lly once a day (at bedtime) Quantity: 0 Refills: 0 Ordered: 06-Dec-2021 Betahny Grady Status: Discontinued Generic Substitution Allowed Ethinyl Estradiol / Norethindrone (9 sources) Estrogen Start: 02-03-2022 End: 05-16-2023 Norethindrone Acet-Ethinyl Est 1-20 mg-mcg per tablet Take by mouth q 24 HR. 0 02/03/2022 05/16/2023 Discontinued Start: 02-03-2022 Norethindrone Acet-Ethinyl Est 1-20 mg-mcg per tablet Take by mouth q 24 HR. 0 02/03/2022 Active Comment on above: Take by mouth q 24 H R. etonogestrel 68 mg drug implant (20 sources) Progestin Start: 06-27-2019 End: 11-30-2023 Etonogestrel 68 mg implant Discontinued 1 NMA subdermal ONCE June 27, 2019 12:00am November 30, 2023 5:39am Start: 06-27-2019 End: 11-30-2023 Etonogestrel Discontinued 1 IMPLANT subdermal ONCE June 27, 2019 12:00am November 30, 2023 5:39am etonogestrel (IM PLANON SDRM) by Subdermal route . 0 Active etonogestrel (IM PLANON SDRM) by Subdermal route . Active HumaLOG KwikPen Insulin (3 sources) Start: 11-30-2023 End: 12-02-2023 HumaLOG KwikPen Insulin Disc ontinued November 30, 2023 12:00am December 02, 2023 9:39am GDM 11 units 1000 14 units 2300 Start: 11-30-2023 End: 12-02-2023 HumaLOG KwikPen Insulin Disc ontinued November 30, 2023 12:00am December 02, 2023 9:39am 11 units 1000 14 units 2300 3 ml insulin isophane, human 100 unt/ml pen injector (20 sources) Start: 10-26-2023 End: 11-01-2023 inject 10 [IU] by subcutaneous injection at bedtime insulin NPH (HUMULIN N NPH INSULIN KWIKPEN) 100 unit/mL (3 mL) injection pen Inject before 10 units breakfast and at 14 units at bedtime. Subcutaneously 0 11/01/2023 Active Start: 08-09-2021 NovoLIN N Flex Pen ReliOn 100 UNIT/ML Subcutaneous Suspension Pen-injector Inject 6 units at bedtime. May increase to 50 units during Quantity: 1 Refills: 3 Ordered: 09-Aug-2021 Isabel Ariat MD Start : 09-Aug-2021 Active Okay to substitute humulin N if preferred by insurance inject 6 [IU] by sub cutaneous injection once daily at bedtime NovoLIN N FlexPen 100 units/mL subcutaneous suspension ; 6 unit(s) subcutaneous once a day (at bedtime) Quantity: 0 Refills: 0 Ordered: 26-Dec-2021 Diego Porter Status: Discontinued Generic Substitution Allowed Comment on above: Inject 10 Units subcutaneously as direct ed. Inject before breakfast and at bedtime. Inject before 10 uni ts breakfast and at 14 units at bedtime. Subcutaneously 3 ml insulin lispro 100 unt/ml pen injector (10 sources) Insulin Analog Start: 11-07-19 inject 4 [IU] by subcutaneous injection once daily before dinner HumaLOG KwikPen 100 UNIT/ML Subcutaneous Solution Pen-injector 4 units BEFORE dinner, daily Quantity: 1 Refills: 3 Ordered: 07-Nov-2021 Mel Ledesma Start : 07-Nov-2021 Active May dispense brand/supplies preferred by insurance. Please call [phone] for questions. inject 14 [IU] by carrillo bcutaneous injection once daily in the evening HumaLOG 100 units/mL subcutaneous solution ; 14 unit(s) subcutaneous once a day (in the evening) Quantity: 0 Refills: 0 Ordered: 02-Dec-2021 Vinita Ferrer Status: Discontinued Generic Substitution Allowed inject 4 [IU] by sub cutaneous injection once daily HumaLOG KwikPen 100 units/mL injectable solution ; 4 unit(s) subcutaneous once a day before supper Quantity: 0 Refills: 0 Ordered: 26-Dec-2021 Diego Porter Status: Discontinued Generic Substitution Allowed 09/29 1-20 MG-MCG Oral Tablet (7 sources) Start: 02-03-2022 take 1 tablet by mouth once daily 09/29 1-20 MG-MCG Oral Tablet TAKE 1 TABLET DAILY DIRECTED. Quantity: 1 Refills: 11 Ordered: 20-Mar-2023 Anton Hernandez MD Start : 03-Feb-2022 Active Start: 02-03-2022 take 1 tablet by oliva th once daily 09/29 1-20 MG-MCG Oral Tablet TAKE 1 TABLET DAILY DIRECTED. Quantity: 1 Refills: 3 Ordered: 15-Dec-2022 Anton Hernandez MD Start : 03-Feb-2022 Active Start: 02-03-2022 take 1 tablet by oliva th once daily 09/29 1-20 MG-MCG Oral Tablet TAKE 1 TABLET DAILY DIRECTED. Quantity: 1 Refills: 11 Ordered: 03-Feb-2022 Jose Carlos Petty DO Start : 03-Feb-2022 Active labetalol hydrochloride 100 mg oral tablet (20 sources) beta-Adrenergic Shadia Start: 05-04-2021 Labeta lol HCl - 100 MG Oral Tablet TAKE 1 2 (ONE HALF) TABLET BY MOUTH TWICE DAILY Quantity: 0 Refills: 0 Ordered: 04-May-2021 DO Start : 04-May-2021 Active labetalol Quanti ty: 0 Refills: 0 Ordered: 04-Jul-2021 Jason Pina Generic Substitution Allowed metoclopramide 5 mg oral tablet (20 sources) Dopamine-2 Receptor Antagonist Start: 06-29-2023 End: 07-27-2023 take 1 tablet by mouth four times daily metoclopramide HCl (REGLAN) 5 mg tablet Take 1 tablet by mouth four times daily. 30 tablet 1 06/29/2023 07/27/2023 Discontinued Start: 08-02-2021 take 1 tablet by oliva th every six hours as needed for headache Metoclopramide HCl - 5 MG Oral Tablet 1 tablet [id number] headache. Quantity: 20 Refills: 2 Ordered: 02-Aug-2021 Joel DO Jose Carlos Start : 02-Aug-2021 Active Comment on above: Take 1 tablet by oliva th four times daily. norethindrone 0.35 mg oral tablet (5 sources) Start: End: take 1 tablet by mouth once daily Norethindrone, Contraceptive, 0.35 mg tablet Indications: Encounter for initial prescription of contraceptive pills Take 1 tablet by mouth once daily. 28 tablet 5 01/10/2024 08/06/2024 Discontinued [id number]-folic 30 mg iron- 1 mg tab (20 sources) End: 4 [id number],crb-folic 30 mg iron- 1 mg tab Take by mouth. 08/06/2024 Discontinued [id number] iron,crb-folic 30 mg iron- 1 mg tab Take by mouth. 0 Active Comment on above: Take by mouth. Vitamin 27-0.8 MG Oral Tablet (20 sources) Vitamin 27-0.8 MG Oral Tablet Quantity: 0 Refills: 0 Ordered: 27-May-2021 DO Active Vitamin 27-0.8 MG TABS (3 sources) Vitamin 27-0.8 MG TABS Quantity: 0 Refills: 0 Ordered: 27-May-2021 DO Active promethazine hydrochloride 12.5 mg oral tablet (8 sources) Phenothiazine Start: 04-25-20 End: 06-29-20 take 1 tablet by mouth every six hours as needed promethazine (PHENERGAN) 12.5 mg tablet Take 1 tablet by mouth every 6 hours as needed. 15 tablet 1 04/25/2023 06/29/2023 Discontinued Comment on above: Take 1 tablet by oliva th every 6 hours as needed. rizatriptan (9 sources) Serotonin-1b and Serotonin-1d Receptor Agonist End: 05-16-20 RIZATRIPTAN BENZOATE (MAXALT ORAL) Take by mouth. 0 05/16/2023 Discontinued RIZATRIPTAN SHELDON OATE (MAXALT ORAL) Take by mouth. 0 Active Comment on above: Take by mouth. valsartan 160 mg oral tablet (5 sources) Angiotensin 2 Receptor Shadia Start: 06-27-2019 End: 11-30-2023 Valsartan 160 mg tablet Discontinued PO 30 0 June 27, 2019 12:00am November 30, 2023 5:40am Start: 06-27-2019 End: 11-30-2023 Valsartan Discontinued PO 30 June 27, 2019 12:00am November 30, 2023 5:40am Start: 06-11-2019 valsartan (BASSEM VAN) 160 MG tablet Problems Active Problems Problem Classification Problem Date Documented Da te Episodic/Chronic Abdominal pain (7 sources) Right upper quadrant pain; Translations: [Right upper quadrant pain] Onset: 02-25-2025 02-25-2025 Episodic Anxiety disorders (20 sources) Anxiety; Translations: [Anxiety state, unspecified] Onset: 11-13-2022 Chronic Cancer of cervix (2 sources) Atypical squamous cells of undetermined significance on cervical Papanicolaou smear; Translations: [Atypical squamous cells of undetermined significance on cytologic smear of cervix (ASC-US)] 01-28-2024 Episodic Cardiac and circulatory congenital anomalies (1 source) Single umbilical artery; Translations: [Congenital absence and hypoplasia of umbilical artery] 08-24-2023 Chronic Contraceptive and procreative management (1 source) Encounter for initial prescription of intrauterine contraceptive device; Translations: [Encounter for initial prescription of intrauterine contraceptive device (IUD)] Onset: 06-25-2025 Episodic Diabetes mellitus without complication (20 sources) Type 2 diabetes mellitus; Translations: [Diabetes mellitus without mention of complication, type II or unspecified type, not stated as uncontrolled] Chronic Essential hypertension (20 sources) Hypertensive disorder; Translations: [Unspecified essential hypertension] Onset: 11-13-2022 Chronic distress and abnormal forces of labor (1 source) Atony of uterus; Translations: [Other and unspecified uterine inertia, unspecified as to episode of care or not applicable] 12-27-2021 Episodic Forceps delivery (1 source) Vacuum assisted vaginal delivery; Translations: [Forceps or vacuum extractor delivery without mention of indication, delivered, with or without mention of antepartum condition] 12-27-2021 Episodic Genitourinary symptoms and ill-defined conditions (8 sources) Increased frequency of urination; Translations: [Urinary frequency] Episodic Headache; including migraine (20 sources) Migraine; Translations: [Migraine, unspecified, without mention of intractable migraine without mention of status migrainosus] Chronic Hemorrhage during ; abruptio placenta; placenta previa (20 sources) Threatened miscarriage; Translations: [Threatened ] Onset: 05-09-2023 04-29-2023 Episodic Hypertension complicating ; childbirth and the puerperium (10 sources) Pre-eclampsia added to pre-existing hypertension; Translations: [Pre-eclampsia or eclampsia superimposed on pre-existing hypertension, unspecified as to episode of care or not applicable] 12-30-2021 Chronic Immunizations and screening for infectious disease (2 sources) Contact with or exposure to other viral diseases; Translations: [Encounter for screening for human papillomavirus (HPV)] Onset: 06-25-2025 09-14-2021 Episodic Malposition; malpresentation (6 sources) Breech presentation with problem; Translations: [Maternal care for breech presentation, not applicable or unspecified] 11-19-2023 Episodic OB-related trauma to perineum and vulva (2 sources) Second degree perineal laceration during delivery 12-27-2021 Episodic Other circulatory disease (2 sources) Elevated blood pressure; Translations: [Elevated blood-pressure reading, without diagnosis of hypertension] 10-09-2024 Episodic Other complications of ; puerperium affecting management of mother (3 sources) Delivery by elective section; Translations: [Encounter for delivery without indication] 11-30-2023 Episodic Other complications of ; puerperium affecting management of mother (1 source) Encounter for delivery without indication; Translations: [ delivery, without mention of indication, unspecified as to episode of care or not applicable] 12-02-2023 Episodic Other complications of (20 sources) High risk ; Translations: [Supervision of unspecified high-risk ] 11-06-2023 Episodic Other complications of (1 source) Vomiting of ; Translations: [Vomiting of , unspecified] 04-26-2023 Episodic Other complications of (16 sources) Nausea and vomiting; Translations: [Vomiting of , unspecified] Onset: 05-09-2023 Resolved: 10-26-2023 05-09-2023 Episodic Other complications of (1 source) Headache; Translations: [Other specified related conditions, second trimester] 06-29-2023 Episodic Other connective tissue disease (7 sources) Female pelvic floor dysfunction; Translations: [Pelvic muscle wasting] Episodic Other female genital disorders (4 sources) Vaginal bleeding; Translations: [Abnormal uterine and vaginal bleeding, unspecified] 04-29-2023 Chronic Other gastrointestinal disorders (1 source) Mixed irritable bowel syndrome; Translations: [Irritable bowel syndrome with both constipation and diarrhea] Onset: 06-17-2025 Chronic Other gastrointestinal disorders (2 sources) Diarrhea, unspecified; Translations: [Diarrhea, unspecified] Onset: 07-14-2025 Episodic Other infections; including parasitic (20 sources) History of human papilloma virus infection; Translations: [Personal history of other infectious and parasitic diseases] Episodic Other liver diseases (1 source) Fatty (change of) liver, not elsewhere classified; Translations: [Hepatic steatosis] Onset: 06-15-2025 Chronic Other lower respiratory disease (4 sources) Rib pain; Translations: [Pleurodynia] 06-27-2019 Episodic Other nervous system disorders (3 sources) Postoperative pain ; Translations: [Other acute postprocedural pain] 12-02-2023 Episodic Other non-traumatic joint disorders (1 source) Pain in joint, lower leg 07-04-2021 Episodic Other nutritional; endocrine; and metabolic disorders (20 sources) Obese class I; Translations: [Obesity, unspecified] Chronic Other nutritional; endocrine; and metabolic disorders (16 sources) Disorder of carbohydrate metabolism; 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 [place] ascus hpv+01/2020LSGIL [place] DOUGLAS I 02/2020; 02/2022 [place] LGSIL. E MB NEg06/27/2021 J LUIS, HPV+ . [place] ascus hpv+01/2020LSGIL [place] DOUGLAS I 02/2020; Other skin disorders (1 source) Folliculitis; Translations: [Follicular disorder, unspecified] 11-06-2023 Episodic Other upper respiratory infections (20 sources) Acute pharyngitis; Translations: [Acute pharyngitis] 09-14-2021 Episodic Residual codes; unclassified (20 sources) History of reconstruction of anterior cruciate ligament tear; Translations: [S/P ACL repair] Onset: 01-07-2019 01-07-2019 Episodic Residual codes; unclassified (6 sources) Gestation period, 12 weeks; Translations: [ state, incidental] 05-31-2023 Episodic Residual codes; unclassified (6 sources) Gestation period, 13 weeks; Translations: [ state, incidental] Episodic Residual codes; unclassified (6 sources) Gestation period, 16 weeks; Translations: [ state, incidental] Episodic Residual codes; unclassified (3 sources) Gestation period, 20 weeks; Translations: [ state, incidental] Episodic Residual codes; unclassified (2 sources) Gestation period, 25 weeks; Translations: [ state, incidental] 08-24-2023 Episodic Residual codes; unclassified (2 sources) Gestation period, 28 weeks; Translations: [ state, incidental] Episodic Residual codes; unclassified (3 sources) Gestation period, 30 weeks; Translations: [ state, incidental] Episodic Residual codes; unclassified (1 source) Gestation period, 32 weeks; Translations: [ state, incidental] Episodic Residual codes; unclassified (6 sources) Gestation period, 34 weeks; Translations: [ state, incidental] 10-26-2023 Episodic Residual codes; unclassified (3 sources) Gestation period, 35 weeks; Translations: [ state, incidental] 11-06-2023 Episodic Residual codes; unclassified (2 sources) Gestation period, 36 weeks; Translations: [ state, incidental] Episodic Residual codes; unclassified (3 sources) Gestation period, 37 weeks; Translations: [ state, incidental] 11-19-2023 Episodic Residual codes; unclassified (2 sources) Gestation period, 38 weeks; Translations: [ state, incidental] 11-26-2023 Episodic Residual codes; unclassified (1 source) Gestation period, 10 weeks; Translations: [10 weeks gestation of ] 05-16-2023 Episodic Residual codes; unclassified (5 sources) History of gestational hypertension; Translations: [Personal history of other complications of , childbirth and the puerperium] 05-16-2023 Episodic Residual codes; unclassified (1 source) Gestation period, 17 weeks; Translations: [17 weeks gestation of ] 06-29-2023 Episodic Residual codes; unclassified (1 source) Gestation period, 21 weeks; Translations: [21 weeks gestation of ] 07-27-2023 Episodic Residual codes; unclassified (1 source) Gestation period, 31 weeks; Translations: [31 weeks gestation of ] 10-29-2023 Episodic Residual codes; unclassified (3 sources) Gestation period, 39 weeks; Translations: [39 weeks gestation of ] 11-30-2023 Episodic Residual codes; unclassified (1 source) 39 weeks gestation of ; Translations: [ state, incidental] 12-02-2023 Episodic Spondylosis; intervertebral disc disorders; other back problems (2 sources) Lumbosacral spondylosis; Translations: [Spondylosis without myelopathy or radiculopathy, lumbar region] Onset: 08-28-2024 08-28-2024 Chronic Sprains and strains (16 sources) Sprain of unspecified site of left knee, initial encounter; Translations: [Complete tear, knee, anterior cruciate ligament] Onset: 09-11-2018 09-11-2018 Episodic Umbilical cord complication (1 source) Umbilical cord around neck; Translations: [Other umbilical cord complications complicating labor and delivery, antepartum condition or complication] 12-27-2021 Episodic Unclassified (20 sources) Sprain of left knee; Translations: [Sprain of left knee] Onset: 09-11-2018 09-11-2018 Unclassified (2 sources) LT KNEE PAIN 07-04-2021 Comment on above: LT KNEE PAIN Unclassified (2 sources) 4 WK OB 06-24-2021 Comment on above: 4 WK OB Unclassified (1 source) 1 WEEK OB 06-29-2021 Comment on above: 1 WEEK OB Unclassified (1 source) Knee pain, left 07-04-2021 Unclassified (2 sources) SORE THROAT COUGH 09-14-2021 Comment on above: SORE THROAT COUGH Unclassified (1 source) MFM FU/ GROWTH US @28 WEEKS ANDRY 01/03/2022 08-09-2021 Comment on above: MFM FU/ GROWTH US @2 8 WEEKS ANDRY 01/03/2022 Unclassified (1 source) Exposure to COVID-19 virus 09-14-2021 Unclassified (1 source) Currently 09-14-2021 Unclassified (2 sources) INDUCTION OF LABOR 12-14-2021 Comment on above: INDUCTION OF LABOR Unclassified (1 source) 6 WK PP 12-13-2021 Comment on above: 6 WK PP Unclassified (1 source) B/P CHECK-COMING AT [address] PETTY 12-30-2021 Comment on above: B/P CHECK-COMING AT [address] PETTY Unclassified (1 source) 39 weeks gestation of 12-21-2021 Unclassified (1 source) Atony of uterus 12-27-2021 Unclassified (1 source) Vacuum-assisted vaginal delivery 12-27-2021 Unclassified (1 source) Nuchal cord affecting delivery 12-27-2021 Unclassified (1 source) Chronic hypertension with superimposed preeclampsia 12-30-2021 Unclassified (1 source) Low back pain, unspecified; Translations: [Low back pain, unspecified] Onset: 10-23-2024 Viral infection (20 sources) Disease caused by 2019-nCoV; Translations: [Other specified viral infection] Episodic Past or Other Problems Problem Classification Problem Date Documented Date Episodic/Chronic Diabetes or abnormal glucose tolerance complicating ; childbirth; or the puerperium (20 sources) Gestational diabetes mellitus, class A>2< ; Translations: [Abnormal glucose tolerance of mother, unspecified as to episode of care or not applicable] Onset: 10-10-2023 10-10-2023 Episodic Menstrual disorders (20 sources) Secondary amenorrhea; Translations: [Absence of menstruation] Onset: 12-24-2009 Resolved: 07-27-2023 12-24-2009 Chronic Other complications of (20 sources) History of gestational diabetes mellitus; Translations: [Supervision of with other poor reproductive or obstetric history, unspecified trimester] Onset: 05-09-2023 05-09-2023 Episodic Other complications of (20 sources) Maternal tobacco use; Translations: [Smoking (tobacco) complicating , unspecified trimester] Onset: 05-09-2023 05-09-2023 Episodic Other complications of (20 sources) Abnormal vaginal Papanicolaou smear; Translations: [Maternal care for other abnormalities of cervix, first trimester] Onset: 05-09-2023 05-09-2023 Episodic Other complications of (20 sources) Single umbilical artery; Translations: [Supervision of other high risk pregnancies, unspecified trimester] Onset: 07-27-2023 07-27-2023 Episodic Other complications of (20 sources) Vomiting of , unspecified; Translations: [Unspecified vomiting of , unspecified as to episode of care or not applicable] Onset: 05-09-2023 Resolved: 10-26-2023 10-26-2023 Episodic Other non-traumatic joint disorders (1 source) Knee pain; Translations: [Pain and swelling of left knee] Episodic Other and delivery including normal (20 sources) Urine test positive; Translations: [ examination or test, positive result] Onset: 05-09-2023 09-14-2021 Episodic Comment on above: 12/27/21 39 WEEKS MA LE 5LBS 15OZ; Residual codes; unclassified (20 sources) H/O: depression; Translations: [Personal history of other complications of , childbirth and the puerperium] Onset: 05-09-2023 05-09-2023 Episodic Residual codes; unclassified (20 sources) FH: Hypertension; Translations: [Personal history of other complications of , childbirth and the puerperium] Onset: 05-09-2023 05-09-2023 Episodic Screening and history of mental health and substance abuse codes (1 source) Encounter for screening for depression; Translations: [Screening for depression] Onset: 08-06-2024 Episodic Spondylosis; intervertebral disc disorders; other back problems (13 sources) Sciatica; Translations: [Sciatica, right side] Onset: 08-06-2024 05-31-2023 Episodic Unclassified (20 sources) Finding of menstrual bleeding; Translations: [Menstruation] Comment on above: Onset age 11 years; Results Test Name Value Interpretation Reference Range Facility Small Bowel Series Onlyon Small Bowel Series Only [facility] [address] [place], [place] [id number] Small Bowel Series Only MR#: [id number] Acct: [id number] Name: SHRUTI RUVALCABA Rep #: [id number] : 1990 F 35 From: [place] PCP: Dr. Margarita Mosley MD Status: REG CLI Study: Small Bowel Series Only Date of Exam: 07/14/25 Exam# [id number] Ordering Dr: Mason Osborn MD PROCEDURE: SMALL BOWEL SERIES ONLY 07/14/2025 REASON FOR EXAM: DIARREHA, ABDOMINAL PAIN TECHNIQUE: SMALL BOWEL SERIES ONLY FLUOROSCOPIC TIME: 17 seconds. FLUOROGRAPHIC IMAGES: 8 COMPARISON: None. FINDINGS: Erp Engineer Image: Non-obstructed bowel gas pattern. No significant retained colonic stool. Degenerative changes of the spine are seen, most prominent at L5-S1 and L2-L3 levels. Small bowel: Normal appearance of both jejunum and ileum are seen, with normal positioning noted. Contrast is seen within the cecum by the 15 minute film. Colon: The visualized portions of the colon are well-distended and is normal in course and caliber. No strictures, large polyps, or diverticuli are identified. Terminal Ileum: No abnormality is seen.. RAD/Small Bowel Series Only IMPRESSION: No significant abnormality is identified. Reading Location: [place] [address] CC: Dr. Margarita Mosley MD; Dr. Mason Osborn MD Scoreboard Operator: Signed Normal [facility] Celiac Disease Profileon ENDOMYSIAL IGA Negative Normal Negative [facility] Comment on above: Performed By: #### L 501.6710, L3410.2400, L501.9310, L501.9520 #### [facility] [address] [place], [address] IMMUNOGLOB A QN 139 mg/dL Normal 87-352 [facility] Comment on above: Result Comment: Perf ormed at: CB - [facility] [address] [id number] Parachutist/Combatant Diver Qualified: Mason Sheldon PhD, Phone: [phone] Performed By: #### L 501.6710, L3410.2400, L501.9310, L501.9520 #### [facility] [address] [place], [address] tTG IGA <2 Normal 0-3 [facility] Comment on above: Result Comment: Nega tive 0 - 3 Weak Positive 4 - 10 Positive >10 Tissue Transglutaminase (tTG) has been identified as the endomysial antigen. Studies have demonstr- ated that endomysial IgA antibodies have over 99% specificity for gluten sensitive enteropathy. Performed By: #### L 501.6710, L3410.2400, L501.9310, L501.9520 #### [facility] [address] [place], [address] CRPon 07-06-2025 C-REACTIVE PROT < 3.00 Normal 0.0-3.0 [facility] Comment on above: Performed By: #### L 501.6710, L3410.2400, L501.9310, L501.9520 #### [facility] [address] [place], [address] T4 Total, Thyroxinon 025 T4 [Mass/Vol] 5.4 ug/dL Normal 4.8-13.9 [facility] Comment on above: Performed By: #### L 501.6710, L3410.2400, L501.9310, L501.9520 #### [facility] [address] [place], [address] Thyroid Stim Hormone (TSH)on 07-06-2025 TSH 2.510 uIU/mL Normal 0.300-4.200 [facility] Comment on above: Performed By: #### L 501.6710, L3410.2400, L501.9310, L501.9520 #### [facility] [address] [place], [address] CNOVon 06-25-2025 CNOV Office Visit (OBGYWM ) ----- SHRUTI RUVALCABA ([id number]) 1990 F Date Time Provider Department 06/25/25 1:40 PM CHRIS LAW OBGYWKelechi During your visit today, we recorded the following information about you: Blood pressure Weight Height Last Period 110/74 70.1 kg 1.651 m 06/14/25 Chris Law MD 06/25/2025 2:06 PM Signed Dental Mechanic offered: Patient declines. Shruti is a 35 year old who presents for an annual gynecologic exam with complaints, pain at site and discuss control. Still get period: Yes Menstrual cycles q 25 days with 5 days of bleeding Bleeding amount bothersome: No Bleeding between periods: No Period symptoms: None Time with current partner: 12 years Number of lifetime partners: 10 control frequency: Sometimes HPV vaccine: Unsure; HPV:positive Last pap smear: 01/10/2024, ASCUS History of abnormal pap: Yes, history of abnormal PAP smears Bothersome pelvic pain: No Last mammogram: never Has increased activity since back surgery and losing weight, so feeling overall better Migraine headaches with CHC and DUB with nexplanon OB History Gravida2 Para2 Term2 Preterm0 AB0 Living2 SAB0 IAB0 Ectopic0 Multiple0 Live Births2 Internal Specialist History LMP: 06/14/2025, Having periods Age at Menarche: 12 Age at First : Age at Menopause: Internal Specialist History Comments: Sexual Activity: Yes; Male Contraception: Condom, Rhythm Menstrual Tracking History Flowsheet Row Office Visit from 06/25/2025 in OB/Gynecology Period Cycle (Days) 25 Period Duration (Days) 5 Menstrual Flow Moderate PAST MEDICAL HISTORY Diagnosis Date anxiety/depression ASCUS with positive high risk HPV cervical Atypical glandular cells of undetermined significance (J LUIS) on cervical Pap smear 01/24/2022 [place]anna HPV+ Breast disorder Complication of anesthesia Dysmenorrhea Excessive or frequent menstruation Heavy periods Gestational diabetes (HCC) Gestational hypertension (HCC) Migraine depression Tension headache PAST SURGICAL HISTORY Procedure Laterality Date DELIVERY ONLY 11/30/2023 [facility] EXTRACTION ERUPTED TOOTH wisdom teeth PAST SURGICAL HISTORY OF Left ACL PAST SURGICAL HISTORY OF 10/17/2024 Discectomy VAGINOSCOPY FAMILY HISTORY Problem Relation Age of Onset Lipids Mother Hypertension Mother Thyroid Mother Hypertension Father Lipids Father No Known Problems Sister No Known Problems Sister No Known Problems Maternal Grandmother No Known Problems Maternal Grandfather Cancer Paternal Grandmother Lung Heart Paternal Grandfather MD at age 35 Alzheimer's Disease Other PGGGM Breast Cancer Other PGGGM No Known Problems Half-sister No Known Problems Son SOCIAL HISTORY Social History Tobacco Use Smoking status: Every Day Current packs/day: 0.25 Average packs/day: 0.3 packs/day for 15.0 years (3.8 ttl pk-yrs) Types: Cigarettes Passive exposure: Never Smokeless tobacco: Never Vaping Use Vaping status: Former Substance Use Topics Alcohol use: Not Currently Comment: Occasionally Drug use: No REVIEW OF SYSTEMS Abdomen: No abdominal pain, nausea, vomiting, diarrhea, or constipation. Bladder: No dysuria, gross hematuria, urinary frequency, urinary urgency, or incontinence. Breast: No breast lumps, nipple d/c, overlying skin changes, redness or skin retraction. Allergies and current medication updated:Yes SENSITIVE EXAM: The sensitive examination was discussed with the Patient or Patient's Authorized Gifted Teacher. As applicable, any other physician, advance practice provider, medical student, or other health professional student that will be observing or involved in the sensitive examination for educational or training purposes was discussed with the Patient or Authorized Gifted Teacher. The Patient or Authorized Gifted Teacher has agreed to proceed with the sensitive examination. (Sensitive examination includes inspection and/or palpation of the breasts, pelvis, prostate and anorectal regions). EXAM: BP 110/74 Ht 5' 5 (1.65m) Wt 154 lb 9.6 oz (70.1kg) LMP 06/14/2025 BMI 25.73 kg/(m2). GENERAL: pleasant, female in no apparent distress HEENT: Normocephalic and atraumatic BREAST: soft, non-tender, symmetric, no dominant mass, normal nipple-areolar complex, no lymphadenopathy, and no nipple discharge CHEST: Normal inspiratory effort ABDOMEN: soft, non-tender, and no masses PELVIC: external genitalia normal, normal Bartholin's glands, urethra, Indiahoma's glands, no vulvar lesions, no cervical lesions, good vaginal support, physiologic discharge present, normal appearing perineal body and perianal region BIMANUAL: uterus normal size, shape and consistency, no adnexal masses, and non-tender RECTOVAGINAL: deferred. NEURO: exam grossly non-focal EXTREMITIES: normal (more content not included)... Normal [facility] HIGH RISK HUMAN PAPILLOMA ALBERTA (HPV), PCR FOR DETECTION AND GENOTYPINGon 06-25-2025 HPV 16 Ag Ql (Unsp spec) Not detected Normal Not detected [facility] Comment on above: Order Comment: Speci men Type: FLUID SPECIMEN Ordering Facility: [facility] Address: [address] [place] [address] Performed By: #### H PVHRT #### [facility] CLIA [id number] [address] [place] [address] [place] HPV 18 Ag Ql (Unsp spec) Not detected Normal Not detected [facility] Comment on above: Order Comment: Speci men Type: FLUID SPECIMEN Ordering Facility: [facility] Address: [address] [place] [address] Performed By: #### H PVHRT #### [facility] CLIA [id number] [address] [place] [address] [place] HPV 31+33+35+39+45+51+52 +56+58+59+66+68 DNA ALLIE+probe Ql (Cvx) Not detected Normal Not detected [facility] Comment on above: Order Comment: Speci men Type: FLUID SPECIMEN Ordering Facility: [facility] Address: [address] [place] [address] Result Comment: High Risk HPV Other Type includes HPV types 31, 33, 35, 39, 45, 51, 52, 56, 58, 59, 66 and 68. Performed By: #### H PVHRT #### [facility] CLIA [id number] [address] [place] [address] [place] PAP TESTon 06-25-2025 ADEQUACY Normal [facility] Comment on above: Order Comment: Speci men Type: FLUID SPECIMEN Ordering Facility: [facility] Address: [address] [place] [address] Result Comment: Sati sfactory for interpretation. Transformation zone present Performed By: #### L [id number] #### [facility] CLIA [id number] [address] [place] [address] [place] [facility] CLIA [id number] [address] [place] [address], [address] [place] [address] [place] CASE REPORT Normal [facility] Comment on above: Order Comment: Speci men Type: FLUID SPECIMEN Ordering Facility: [facility] Address: [address] [place] [address] Result Comment: Gyne cologic Cytology Report Case: [id number] Authorizing Provider: Chris Law MD Collected: 06/25/2025 02:10 PM Ordering Location: OB/Gynecology Received: 06/25/2025 04:35 PM First Screen: Alyssia, Ksenia, CT, ASCP Rescreen: Giovanna Mims, CT, ASCP Specimen: Pap Test, ThinPrep, Cervix Performed By: #### L [id number] #### [facility] CLIA [id number] [address] [place] [address] [place] [facility] CLIA [id number] [address] [place] [address], [address] [place] [address] [place] CLINICAL HISTORY, CYTOLOGY, RN SOCIAL SERVICES Routine Exam Normal [facility] Comment on above: Order Comment: Speci men Type: FLUID SPECIMEN Ordering Facility: [facility] Address: [address] [place] [address] Performed By: #### L [id number] #### [facility] CLIA [id number] [address] [place] [address] [place] [facility] CLIA [id number] [address] [place] [address], [address] [place] [address] [place] FINAL PERFORMING LAB Normal [facility] Comment on above: Order Comment: Speci men Type: FLUID SPECIMEN Ordering Facility: [facility] Address: [address] [place] [address] Result Comment: Tech nical component, biochemical development engineer screening performed at: [facility], [address] [place] [address], [address] [place] [address] CLIA: [id number] Diagnostic interpretation performed at: [facility], [address] [place] [address] CLIA# [id number] Sanitation Inspector: Boni Roberson MD Performed By: #### L [id number] #### [facility] CLIA [id number] [address] [place] [address] [place] [facility] CLIA [id number] [address] [place] [address] [address], [address] [place] [address] [place] INTERPRETATION, CYTOLOGY, RN SOCIAL SERVICES Normal [facility] Comment on above: Order Comment: Speci men Type: FLUID SPECIMEN Ordering Facility: [facility] Address: [address] [place] [address] Result Comment: Nega tive for intraepithelial lesion or malignancy. at 0731 EDT Performed By: #### L [id number] #### [facility] CLIA [id number] [address] [place] [address] [place] [facility] CLIA [id number] [address] [place] [address], [address] [place] [address] [place] LMP 06/14/2025 Normal [facility] Comment on above: Order Comment: Speci men Type: FLUID SPECIMEN Ordering Facility: [facility] Address: [address] [place] [address] Performed By: #### L [id number] #### [facility] CLIA [id number] [address] [place] [address] [place] [facility] CLIA [id number] [address] [place] [address] 3, [address] [place] [address] [place] PAP DISCLAIMER COMMENT The Pap Smear is a screening test for cervical cancer. False negative results occur with all screening tests, emphasizing the need for rescreening at recommended intervals, and clinical correlation. Normal [facility] Comment on above: Order Comment: Speci men Type: FLUID SPECIMEN Ordering Facility: [facility] Address: [address] [place] [address] Performed By: #### L [id number] #### [facility] CLIA [id number] [address] [place] [address] LABORATORY CLIA [id number] [address] [place] [address] OF [place] PAP MUD MIXER COMMENT This specimen has be en analyzed by the FDA-approved [employer] BlendsTM System, which uses digital imaging and an enhanced artificial intelligence image analysis algorithm to identify macias of interest on the microscopic slide, to assist the obiee architect and pathologist in evaluating cells on ThinPrep Pap tests. Following analysis, macias of interest on the microscopic slide selected by the algorithm are reviewed by a obiee architect. If a sample requires hierarchical review, the pathologist will review the same macias of interest selected by the algorithm prior to final interpretation. Normal [facility] Comment on above: Order Comment: Spechoward men Type: FLUID SPECIMEN Ordering Facility: [facility] Address: [address] [place] [address] Performed By: #### L [id number] #### [facility] CLIA [id number] [address] [place] [address] LABORATORY CLIA [id number] [address] [place] [address] OF DAVID Slim 06-18-2025 ESPERANZA Telephone (THAIDES) ----- SHRUTI RUVALCABA ([id number]) 1990 F Date Time Provider Department 06/18/25 MARGARITA MOSLEY During your visit today, we recorded the following information about you: Mira Euceda MA 06/18/2025 9:13 AM Signed Items addressed in this encounter: Fax/Forms Gastroenterology referral has been faxed to Dr Osborn Able to close encounter. Mira Euceda MA June 18, 2025 9:08 AM 9:08 AM Allergies As of Date: 06/18/2025 Noted Allergy Reaction POLLEN 07/08/2014 16 - Unknown Comments: Headaches Date Reviewed: 06/17/2025 Reviewed by: Damaso Mistry LPN - Fully Assessed Reason for Visit: Gastroenterology referral has been faxed to Dr Osborn [Other] Prescriptions as of 06/18/2025 - cyclobenzaprine (FLEXERIL) 10 mg tablet Take 1 tablet by mouth every 8 hours as needed for muscle spasm. - sertraline (ZOLOFT) 50 mg tablet Take 1 tablet by mouth once daily. After taking 1/2 tab every day for the first week, Problem List As Of Date 06/18/2025 Noted Resolved Dysmenorrhea [N94.6] 12/24/2009 07/27/2023 Hypertension, essential [I10] 11/13/2022 Anxiety [F41.9] 11/13/2022 with care elsewhere, antepar*05/09/2023 Bleeding in early [O20.9] 05/09/2023 Nausea and vomiting during [O21.9] 05/09/2023 10/26/2023 History of depression [Z87.59, Z86.5*05/09/2023 History of depression [Z86.59] 05/09/2023 History of maternal hypertension [Z87.59] 05/09/2023 History of gestational diabetes in prior pregna*05/09/2023 Tobacco use disorder complicating , ch*05/09/2023 Patient request for diagnostic testing [Z01.89] 05/09/2023 07/27/2023 Abnormal cervical Papanicolaou smear affecting *05/09/2023 Single umbilical artery affecting management of*07/27/2023 Insulin controlled gestational diabetes mellitu*10/10/2023 Encounter Status:Closed by MIRA EUCEDA on 06/18/25 [facility] CNOVon 06-17-2025 CNOV Office Visit (FAMMAS ) ----- SHRUTI RUVALCABA ([id number]) 1990 F Date Time Provider Department 06/17/25 1:50 PM MARGARITA MOSLEY During your visit today, we recorded the following information about you: Temperature Pulse Respiration Blood pressure 97.1 degrees 88/minute 18/minute 122/78 Weight Height Last Period 68.8 kg 1.638 m 06/13/25 Damaso Mistry LPN 06/17/2025 2:39 PM Signed Patient is in office for follow up from recent urgent care visit. Patient was evaluated and treated at Urgent Care in [place] on 06-15-2025 {ASSESSMENT/PLAN: 1. Generalized abdominal pain - ICD9: 789.07, ICD10: R10.84 (primary diagnosis) Advised pt to follow up with GI for further workup or ED if any sudden worsening - CONSULT TO GASTROENTEROLOGY Till seen at visit avoid ETOH and also NSAids 2. Hepatic steatosis - ICD9: 571.8, ICD10: K76.0 patient continues to have abdominal pain. No refills needed Damaso Mistry LPN June 17, 2025 1:48 PM Margarita Mosley MD 06/17/2025 2:39 PM Signed Subjective Chief Complaint: Shruti Ruvalcaba is a 35-year-old female with a history of IBS, presenting with persistent abdominal pain and irregular bowel movements. History of Present Illness: Shruti reports persistent abdominal pain that is described as moving around and feeling like a bruise inside. The pain is constant but has calmed down a lot. It is primarily located in the lower abdomen and is more noticeable after dinner, about an hour after sitting down on the couch. The pain is not related to her menstrual cycle and is not affected by specific foods. She has tried to watch her dairy intake but has not noticed a difference. The pain is not bothersome at night when she is laying flat. Shruti also reports irregular bowel movements, with alternating constipation and diarrhea. She has tried an elimination diet but has not been able to identify a trigger for her symptoms. She was diagnosed with IBS at the age of 22 or 23 after a colonoscopy, but her symptoms have worsened since then. Shruti has a history of back pain, which has improved, and she is more active than usual. She has lost weight, which she attributes to not eating and stopping meloxicam. She is currently taking sertraline and Flexeril as needed, but has stopped taking Neurontin, Mobic, and antiemetics. She has also quit drinking alcohol. Review of Systems GENERAL: Positive for recent weight loss. Denies malaise or fever. HEENT: Negative for frequent or significant headaches; denies visual or hearing changes, epistaxis, or other nasal problems. NECK: Negative for lumps, goiter, pain, or significant swelling. RESPIRATORY: Negative for cough, dyspnea, or shortness of breath. CARDIOVASCULAR: Negative for chest pain, leg swelling, CHF, or palpitations. GI: Positive for intermittent lower abdominal pain and episodes of both constipation and diarrhea. Denies nausea, vomiting, heartburn, blood in stool, or black stool. GENITOURINARY: Denies dysuria, frequency, or incontinence. Reports recent irregular menses. MUSCULOSKELETAL: Negative for joint pain, swelling, or myalgia. Denies current back pain. SKIN: Negative for lesions, rash, or itching. PSYCH: Denies anxiety or depression. HEMATOLOGY/LYMPHOLOGY: Denies bleeding concerns. NEURO: Denies headaches, syncope, paralysis, seizures, or tremors. ENDOCRINE: Denies polydipsia, increased thirst, or other endocrine symptoms. PAST SURGICAL HISTORY Procedure Laterality Date DELIVERY ONLY 11/30/2023 LTCS EXTRACTION ERUPTED TOOTH wisdom teeth PAST SURGICAL HISTORY OF Left ACL VAGINOSCOPY PAST MEDICAL HISTORY Diagnosis Date anxiety/depression ASCUS with positive high risk HPV cervical Atypical glandular cells of undetermined significance (J LUIS) on cervical Pap smear 01/24/2022 [place] HPV+ Breast disorder Complication of anesthesia Dysmenorrhea Excessive or frequent menstruation Heavy periods Gestational diabetes (HCC) Gestational hypertension (HCC) Migraine depression Tension headache FAMILY HISTORY Problem Relation Age of Onset Lipids Mother Hypertension Mother Thyroid Mother Hypertension Father Lipids Father No Known Problems Sister No Known Problems Sister No Known Problems Maternal Grandmother No Known Problems Maternal Grandfather Cancer Paternal Grandmother Lung Heart Paternal Grandfather MD at age 35 Alzheimer's Disease Other PGGGM Breast Cancer Other PGGGM No Known Problems Half-sister No Known Problems Son SOCIAL HISTORY[1] ALLERGIES Allergen Reactions Pollen Unknown Headaches MEDICATIONS: cyclobenzaprine (FLEXERIL) 10 mg tablet Take 1 tablet by mouth every 8 hours as needed for muscle spasm. sertraline (ZOLOFT) 50 mg tablet Take 1 tablet by mouth once daily. After taking 1/2 tab every day for (more content not included)... [facility] CNOVon 06-15-2025 CNOV Office Visit (WOUCA) ----- SHRUTI RUVALCABA ([id number]) 1990 F Date Time Provider Department 06/15/25 11:45 AM JULEE BANKS During your visit today, we recorded the following information about you: Temperature Pulse Respiration Blood pressure 97.6 degrees 80/minute 18/minute 132/82 Weight 68.2 kg Julee Banks MD 06/15/2025 11:59 AM Signed FOLLOW UP WITH CRISIS COUNSELOR ORDERED IF ANY WORSE GO TO THE ED FOR IMMEDIATE EVALUATION [facility] [place] [address] [place], [place] [address] Emergency Department Diagnosis: Assessment ABDOMINAL PAIN- ADULT General Information: Many medical conditions can cause abdominal pain. Often, the cause cannot be found. Instructions: Your doctor did not find any evidence of a serious disease that could be causing your pain. However, you should return immediately if you develop any of the symptoms listed below. These could be signs of serious diseases that need immediate medical care. You should follow up with your regular physician or with the doctor recommended to you by the emergency department. Rest in bed until you feel better. Take your temperature every 4 hours. Do not take any medications not prescribed by the physician including laxatives and pain killers. As long as you still have pain, do not eat solid foods or drink large amounts of fluids. You may take small sips of clear liquids or suck on ice. Contact Your Doctor or Return to The Emergency Department If: Your pain gets worse or concentrates in only one area. You vomit blood or find blood in your stool or urine. You are dizzy or faint. Your abdomen becomes swollen or your bowel movements stop. You have a temperature over 102?F (39? C). You have trouble passing urine. You feel short of breath. Julee Banks MD 06/15/2025 12:08 PM Signed [facility] Subjective Shruti Ruvalcaba is a 35 year old female. Patient presents with: Abdominal Pain: X 2 months Pt is here with ongoing abdominal pain nx 2 months seen by her pcp labs and US done showing only hepatic steatosis no new issues but genralized belly pain no fever no chills no N/V past surgical hx of C section pt has stopped all meds and ETOH and has since improved but not gone Abdominal Pain Pertinent negatives include fever, diarrhea, nausea, vomiting, dysuria and frequency. Review of Systems Constitutional: Negative for chills, fatigue and fever. Gastrointestinal: Positive for abdominal pain. Negative for diarrhea, nausea, rectal pain and vomiting. Genitourinary: Negative for dysuria, flank pain, frequency, pelvic pain, urgency and vaginal bleeding. Objective BP 132/82 Pulse 80 Temp 36.4 ?C (97.6 ?F) (Tympanic) Resp 18 Wt 68.2 kg (150 lb 5.7 oz) LMP 02/25/2025 (Exact Date) SpO2 98% BMI 25.41 kg/m? Physical Exam Vitals and nursing note reviewed. Constitutional: Appearance: Normal appearance. She is not ill-appearing. Abdominal: General: Bowel sounds are normal. Palpations: Abdomen is soft. Tenderness: There is no abdominal tenderness. There is no right CVA tenderness, left CVA tenderness, guarding or rebound. Hernia: No hernia is present. Neurological: Mental Status: She is alert and oriented to person, place, and time. Psychiatric: Mood and Affect: Mood normal. Behavior: Behavior normal. {ASSESSMENT/PLAN: 1. Generalized abdominal pain - ICD9: 789.07, ICD10: R10.84 (primary diagnosis) Advised pt to follow up with GI for further workup or ED if any sudden worsening - CONSULT TO GASTROENTEROLOGY Till seen at visit avoid ETOH and also NSAids 2. Hepatic steatosis - ICD9: 571.8, ICD10: K76.0 Julee Banks MD History and Record Review External record(s) reviewed: prior outpatient record. Differential Diagnoses - abdominal pain unknown cause is more likely for the following reason(s): suggested by HANDP Disposition The patient was discharged. Procedures Allergies As of Date: 06/15/2025 Noted Allergy Reaction POLLEN 07/08/2014 16 - Unknown Comments: Headaches Date Reviewed: 06/15/2025 Reviewed by: Kitty Pulliam LPN - Fully Assessed Reason for Visit: Abdominal Pain [1] Cmt: X 2 months Primary Visit Diagnosis:Generalized abdominal pain [R10.84] Other Visit Diagnosis:Hepatic steatosis [K76.0] Order(s):CONSULT TO GASTROENTEROLOGY [9010] Order #: [id number]: 1 FUTURE Prescriptions as of 06/15/2025 - traMADol (ULTRAM) 50 mg tablet TAKE 1 TABLET BY MOUTH EVERY 4 HOURS FOR PAIN FOR 7 DAYS - ondansetron orally disintegrating (ZOFRAN ODT) 4 mg disintegrating tablet Take 1 tablet by mouth every 8 hours as needed for nausea/vomiting. - gabapentin (NEURONTIN) 300 mg capsule TAKE 1 CAPSULE BY MOUTH THREE TIMES DAILY DIRECTED - meloxicam (MOBIC) 15 mg tablet Take 1 tablet by mouth every afternoon. - c (more content not included)... Normal [facility] Relevant diagnostic tests/la boratory data Narrativeon 05-20-2025 Fall risk assessment no PASHA [employer] Work Phone: MEDS REVIEW Done [facility] Work Phone: MEDS REVIEWD Medications reviewed without changes [facility] Work Phone: MRI HX on 02/26/2025 [facility] Work Phone: Inital Evaluation (1) - PTon 05-08-2025 Inital Evaluation (1) - PT [facility] [address] [place] [address]. [address] [place] [address] / REHABILITATION SERVICES INITIAL EVALUATION MR#: [id number] Acct: [id number] Name: SHRUTI RUVALCABA Rep #: [id number] : 1990 34 From: Anton Loza PT, Cert. MD Raya, OCS Referring Dr.: Dr. Enrique Dyer MD Status: R EG RCR Insurance: [employer]URANCE Patient's Visit Information Visit Information Visit Information: SHRUTI RUVALCABA is a 34 year old F referred to Physical Therapy by Dr. 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 Date of Evaluation: 05/08/25 Physical Therapist: Anton Loza PT, Cert MDT, OCS Visit Plan Frequency: 2x /Week Duration: 4 Weeks Plan: *right microdiscectomy L5-S1 on Oct 17 PT INTERVENTIONS AMADO EX'S ,LE FLEXABILITY ,DLS ,POSTURAL EX'S ,POSTURE/BODY MECHANICS EDUCATION ,ACTIVITY MODIFICATION AND MODALTIES Subjective Subjective: This 34 y/o female presents to physical therapy with s/p right microdiscectomy L5-S1 on Oct [address] Dyer at [facility]. Patient d/c DOS. Prior surgery MRI Severe spinal stenosis at L5-S1 secondary to bulging annulus and large right paracentral/posterolatera l disc extrusion. Patient had PT 7 visits . RTD 2nd MRI showed bulging disc . Seen DR recommended to continue with PT . No medication. Patient able lift/bending/twisting ,20-30# restriction. Pain located Right LS region. Described as burning /sharp . C/O paresthesia /tingling right foot. Aggravating driving ,pushing ,lifting/bending sitting ,walking. Alleviating ice , extension . Coughing/sneezing+. Bowel/bladder -. Patient pain affects sleeping. Patient condition affects QOL .family and job demands but works at home . Goals to have no pain. SOCIAL: VOCATION: Home Pain Right Back: Pain Intensity (Out of 10): 3 Pain Intensity Range: 6 Objective Objective: POSTURE: mild forward posture NEURO: C/O paresthesia/tingling foot ,reflexes L3-4,L4-5,L5-S1 3/3 GAIT: reciprocal PALPATION: unremarkable FLEXABILITY: hamstrings min tight MMT: quads/hams 4/5 ,hip flexion 4/5 ,ankle 5/5 LUMBAR ROM: flexion mod loss ,extension min loss ,side glides min loss Special Tests L/S Slump test left side: Negative L/S Slump test right side: Positive L/S Left Straight Leg Raise: Negative L/S Right Straight Leg Raise: Negative Lumbar Standing: Flexion - Mechanical Response: No effect Lumbar Standing: Flexion - Symptoms During Testing: Increases Lumbar Standing: Flexion - Symptoms After Testing: No worse Lumbar Standing: Extension - Mechanical Response: No effect Lumbar Standing: Extension - Symptoms During Testing: Decreases Lumbar Standing: Extension - Symptoms After Testing: Better Lumbar Standing: Right Side Glides - Mechanical Response: No effect Lumbar Standing: Right Side Banco - Symptoms During Testing: No effect Lumbar Standing: Right Side Banco - Symptoms After Testing: No effect Lumbar Standing: Left Side Banco - Mechanical Response: No effect Lumbar Standing: Left Side Banco - Symptoms During Testing: No effect Lumbar Standing: Left Side Banco - Symptoms After Testing: No effect Lumbar Lying: Flexion - Mechanical Response: No effect Lumbar Lying: Flexion - Symptoms During Testing: No effect Lumbar Lying: Flexion - Symptoms After Testing: No effect Lumbar Lying: Extension - Mechanical Response: No effect Lumbar Lying: Extension - Symptoms During Testing: Decreases Lumbar Lying: Extension - Symptoms After Testing: Better Balance/Special Test Scores Oswestry Low Back Score: 22 Goals Goal 1:: Patient to be I with HEP back Goal Time Frame: 4-6 Weeks Goal 2:: Patient to improve lumbar ROM for function of recovery to lift daughter Goal Time Frame: 4-6 Weeks Goal 3:: Patient to improve back oswestry score by 5 points to improve QOL Goal Time Frame: 4-6 Weeks Goal 4:: Patient to demonstrate 70%improvement with less pain and improved function Goal Time Frame: 4-6 Weeks Goal 5:: Patient to return to prior level of function and ADLS /housework W/O limitations Goal Time Frame: 4-6 Weeks Rehabilitation Potential Physical Therapy Diagnosis: This patient underwent s/p right microdiscectomy L5-S1 on Oct 17. Patient has pain with bending ,lifting and sitting better with walking and extension thus benefit from skilled PT Rehabilitation Potential: Good Anticipated Interventions Patient/Client Instruction: Educate patient on: Condition and Plan of Care For the Purpose of:: To decrease pain, To increase ROM, To improve muscle performance and motor function, To improve ability to perform ADL's, To increase tolerance to activity/condition/positi on, To improve ability of physical actions for home/community/work/leisu re, To improve gait and locomotor functions, To improve (more content not included)... Normal [facility] CBC W Auto Differential pane l (Bld)on 03-02-2025 Basophils (Bld) [#/Vol] 0.05 10*3/uL Normal <0.11 [facility] Comment on above: Order Comment: Speci men Type: BLOOD SPECIMEN Ordering Facility: [facility] Address: [address] [place] [address] Performed By: #### 5 7021-8 #### [facility] CLIA [id number] [address] [place] [address] [place] Basophils/100 WBC (Bld) 0.8 % Normal [facility] Comment on above: Order Comment: Speci men Type: BLOOD SPECIMEN Ordering Facility: [facility] Address: [address] [place] [address] Performed By: #### 5 7021-8 #### [facility] CLIA [id number] [address] [place] [address] [place] Differential cell count method Nom (Bld) Auto Normal [facility] Comment on above: Order Comment: Speci men Type: BLOOD SPECIMEN Ordering Facility: [facility] Address: [address] [place] [address] Performed By: #### 5 7021-8 #### [facility] CLIA [id number] [address] [place] [address] [place] Eosinophils (Bld) [#/Vol] 0.09 10*3/uL Normal <0.46 [facility] Comment on above: Order Comment: Speci men Type: BLOOD SPECIMEN Ordering Facility: [facility] Address: [address] [place] [address] Performed By: #### 5 7021-8 #### [facility] CLIA [id number] [address] [place] [address] [place] Eosinophils/100 WBC (Bld) 1.5 % Normal [facility] Comment on above: Order Comment: Speci men Type: BLOOD SPECIMEN Ordering Facility: [facility] Address: [address] [place], [place] [address] Performed By: #### 5 7021-8 #### [facility] CLIA [id number] [address] [place] [address] [place] Erythrocyte distribution width (RBC) [Ratio] 12.9 % Normal 11.5-15.0 [facility] Comment on above: Order Comment: Speci men Type: BLOOD SPECIMEN Ordering Facility: [facility] Address: [address] [place], [place] [address] Performed By: #### 5 7021-8 #### [facility] CLIA [id number] [address] [place] [address] [place] Hematocrit (Bld) [Volume fraction] 51.7 % High 36.0-46.0 [facility] Comment on above: Order Comment: Speci men Type: BLOOD SPECIMEN Ordering Facility: [facility] Address: [address] [place] [address] Performed By: #### 5 7021-8 #### [facility] CLIA [id number] [address] [place] [address] [place] Hemoglobin (Bld) [Mass/Vol] 18.0 g/dL High 11.5-15.5 [facility] Comment on above: Order Comment: Speci men Type: BLOOD SPECIMEN Ordering Facility: [facility] Address: [address] [place] [address] Performed By: #### 5 7021-8 #### [facility] CLIA [id number] [address] [place] [address] [place] Immature granulocytes (Bld) [#/Vol] 10*3/uL Normal <0.10 [facility] Comment on above: Order Comment: Speci men Type: BLOOD SPECIMEN Ordering Facility: [facility] Address: [address] [place] [address] Performed By: #### 5 7021-8 #### [facility] CLIA [id number] [address] [place] [address] [place] Immature granulocytes/100 WBC (Bld) 0.2 % Normal [facility] Comment on above: Order Comment: Speci men Type: BLOOD SPECIMEN Ordering Facility: [facility] Address: [address] [place] [address] Performed By: #### 5 7021-8 #### [facility] CLIA [id number] [address] [place] [address] [place] Lymphocytes (Bld) [#/Vol] 1.50 10*3/uL Normal 1.00-4.00 [facility] Comment on above: Order Comment: Speci men Type: BLOOD SPECIMEN Ordering Facility: [facility] Address: [address] [place] [address] Performed By: #### 5 7021-8 #### [facility] CLIA [id number] [address] [place] [address] [place] Lymphocytes/100 WBC (Bld) 25.2 % Normal [facility] Comment on above: Order Comment: Speci men Type: BLOOD SPECIMEN Ordering Facility: [facility] Address: [address] [place] [address] Performed By: #### 5 7021-8 #### [facility] CLIA [id number] [address] [place] [address] [place] MCH (RBC) [Entitic mass] 31.7 pg Normal 26.0-34.0 [facility] Comment on above: Order Comment: Speci men Type: BLOOD SPECIMEN Ordering Facility: [facility] Address: [address] [place] [address] Performed By: #### 5 7021-8 #### [facility] CLIA [id number] [address] [place] [address] [place] MCHC (RBC) [Mass/Vol] 34.8 g/dL Normal 30.5-36.0 [facility] Comment on above: Order Comment: Speci men Type: BLOOD SPECIMEN Ordering Facility: [facility] Address: [address] [place] [address] Performed By: #### 5 7021-8 #### [facility] CLIA [id number] [address] [place] [address] [place] MCV (RBC) [Entitic vol] 91.2 fL Normal 80.0-100.0 [facility] Comment on above: Order Comment: Speci men Type: BLOOD SPECIMEN Ordering Facility: [facility] Address: [address] [place] [address] Performed By: #### 5 7021-8 #### [facility] CLIA [id number] [address] [place] [address] [place] Monocytes (Bld) [#/Vol] 0.93 10*3/uL High <0.87 [facility] Comment on above: Order Comment: Speci men Type: BLOOD SPECIMEN Ordering Facility: [facility] Address: [address] [place] [address] Performed By: #### 5 7021-8 #### [facility] CLIA [id number] [address] [place] [address] [place] Monocytes/100 WBC (Bld) 15.6 % Normal [facility] Comment on above: Order Comment: Speci men Type: BLOOD SPECIMEN Ordering Facility: [facility] Address: [address] [place] [address] Performed By: #### 5 7021-8 #### [facility] CLIA [id number] [address] [place] [address] [place] Neutrophils (Bld) [#/Vol] 3.38 10*3/uL Normal 1.45-7.50 [facility] Comment on above: Order Comment: Speci men Type: BLOOD SPECIMEN Ordering Facility: [facility] Address: [address] [place] [address] Performed By: #### 5 7021-8 #### [facility] CLIA [id number] [address] [place] [address] [place] Neutrophils/100 WBC (Bld) 56.7 % Normal [facility] Comment on above: Order Comment: Speci men Type: BLOOD SPECIMEN Ordering Facility: [facility] Address: [address] [place] [address] Performed By: #### 5 7021-8 #### [facility] CLIA [id number] [address] [place] [address] [place] Nucleated RBC (Bld) [#/Vol] 10*3/uL Normal <0.01 [facility] Comment on above: Order Comment: Speci men Type: BLOOD SPECIMEN Ordering Facility: [facility] Address: [address] [place] [address] Performed By: #### 5 7021-8 #### [facility] CLIA [id number] [address] [place] [address] [place] Nucleated RBC/100 WBC (Bld) [Ratio] 0.0 /100 WBC Normal [facility] Comment on above: Order Comment: Speci men Type: BLOOD SPECIMEN Ordering Facility: [facility] Address: [address] [place] [address] Performed By: #### 5 7021-8 #### [facility] CLIA [id number] [address] [place] [address] [place] Platelet mean volume (Bld) [Entitic vol] 9.7 fL Normal 9.0-12.7 [facility] Comment on above: Order Comment: Speci men Type: BLOOD SPECIMEN Ordering Facility: [facility] Address: [address] [place] [address] Performed By: #### 5 7021-8 #### [facility] CLIA [id number] [address] [place] [address] [place] Platelets (Bld) [#/Vol] 232 10*3/uL Normal 150-400 [facility] Comment on above: Order Comment: Speci men Type: BLOOD SPECIMEN Ordering Facility: [facility] Address: [address] [place] [address] Performed By: #### 5 7021-8 #### [facility] CLIA [id number] [address] [place] [address] [place] RBC (Bld) [#/Vol] 5.67 10*6/uL High 3.90-5.20 [facility] Comment on above: Order Comment: Speci men Type: BLOOD SPECIMEN Ordering Facility: [facility] Address: [address] [place] [address] Performed By: #### 5 7021-8 #### [facility] CLIA [id number] [address] [place] [address] [place] WBC (Bld) [#/Vol] 5.96 10*3/uL Normal 3.70-11.00 [facility] Comment on above: Order Comment: Speci men Type: BLOOD SPECIMEN Ordering Facility: [facility] Address: [address] [place] [address] Performed By: #### 5 7021-8 #### [facility] CLIA [id number] [address] [place] [address] [place] Comprehensive metabolic 2000 panelon 03-02-2025 Albumin [Mass/Vol] 4.0 g/dL Normal 3.9-4.9 [facility] Comment on above: Order Comment: Speci men Type: BLOOD SPECIMEN Ordering Facility: [facility] Address: [address] [place] [address] Performed By: #### 2 4323-8 #### [facility] CLIA [id number] [address] [place] [address] [place] ALP [Catalytic activity/Vol] 68 U/L Normal 34-123 [facility] Comment on above: Order Comment: Speci men Type: BLOOD SPECIMEN Ordering Facility: [facility] Address: [address] [place] [id number] Performed By: #### 2 4323-8 #### [facility] CLIA [id number] [address] [place] [address] [place] ALT [Catalytic activity/Vol] 35 U/L Normal 7-38 [facility] Comment on above: Order Comment: Speci men Type: BLOOD SPECIMEN Ordering Facility: [facility] Address: [address] [place] [address] Performed By: #### 2 4323-8 #### [facility] CLIA [id number] [address] [place] [address] [place] Anion gap [Moles/Vol] 13 mmol/L Normal 8-15 [facility] Comment on above: Order Comment: Speci men Type: BLOOD SPECIMEN Ordering Facility: [facility] Address: [address] [place] [address] Performed By: #### 2 4323-8 #### [facility] CLIA [id number] [address] [place] [address] [place] AST [Catalytic activity/Vol] 47 U/L High 13-35 [facility] Comment on above: Order Comment: Speci men Type: BLOOD SPECIMEN Ordering Facility: [facility] Address: [address] [place] [address] Performed By: #### 2 4323-8 #### [facility] CLIA [id number] [address] [place] [address] [place] Bilirubin [Mass/Vol] 0.9 mg/dL Normal 0.2-1.3 [facility] Comment on above: Order Comment: Speci men Type: BLOOD SPECIMEN Ordering Facility: [facility] Address: [address] [place] [address] Performed By: #### 2 4323-8 #### [facility] CLIA [id number] [address] [place] [address] [place] Calcium [Mass/Vol] 9.2 mg/dL Normal 8.5-10.2 [facility] Comment on above: Order Comment: Speci men Type: BLOOD SPECIMEN Ordering Facility: [facility] Address: [address] [place] [address] Performed By: #### 2 4323-8 #### [facility] CLIA [id number] [address] [place] [address] [place] Chloride [Moles/Vol] 104 mmol/L Normal 98-107 [facility] Comment on above: Order Comment: Speci men Type: BLOOD SPECIMEN Ordering Facility: [facility] Address: [address] [place] [address] Performed By: #### 2 4323-8 #### [facility] CLIA [id number] [address] [place] [address] [place] CO2 [Moles/Vol] 23 mmol/L Normal 22-30 [facility] Comment on above: Order Comment: Speci men Type: BLOOD SPECIMEN Ordering Facility: [facility] Address: [address] [place] [address] Performed By: #### 2 4323-8 #### [facility] CLIA [id number] [address] [place] [address] [place] Creatinine [Mass/Vol] 0.73 mg/dL Normal 0.58-0.96 [facility] Comment on above: Order Comment: Speci men Type: BLOOD SPECIMEN Ordering Facility: [facility] Address: [address] [place] [address] Performed By: #### 2 4323-8 #### [facility] CLIA [id number] [address] [place] [address] [place] Creatinine and Glomerular filtration rate.predicted panel (S/P/Bld) 112 mL/min/1.73m??? Normal >=60 [facility] Comment on above: Order Comment: Radha diana Type: BLOOD SPECIMEN Ordering Facility: [facility] Address: [address] [place] [address] Result Comment: Lenore mated Glomerular Filtration Rate (eGFR) is calculated using the 2020 CKD-EPI creatinine equation. This equation utilizes serum creatinine, sex, and age as parameters. The creatinine assay has traceable calibration to isotope dilution-mass spectrometry. Refer to KDIGO guidelines for clinical interpretation. In patients with unstable renal function, e.g. those with acute kidney injury, the eGFR may not accurately reflect actual GFR. Performed By: #### 2 4323-8 #### [facility] [id number] [address] [place] [address] [place] Glucose [Mass/Vol] 108 mg/dL High 74-99 [facility] Comment on above: Order Comment: Radha diana Type: BLOOD SPECIMEN Ordering Facility: [facility] Address: [address] [place] [address] Result Comment: The [place] [employer] (ADA) provides guidance for cutoff values for fasting glucose and random glucose. The ADA defines fasting as no caloric intake for at least 8 hours. Fasting plasma glucose results between 100 to 125 mg/dL indicate increased risk for diabetes (prediabetes). Fasting plasma glucose results greater than or equal to 126 mg/dL meet the criteria for diagnosis of diabetes. In the absence of unequivocal hyperglycemia, results should be confirmed by repeat testing. In a patient with classic symptoms of hyperglycemia or hyperglycemic crisis, random plasma glucose results greater than or equal to 200 mg/dL meet the criteria for diagnosis of diabetes. Reference: Standards of Medical Care in Diabetes 2016, [place] [employer]. Diabetes Care. 2016.39(Suppl 1). Performed By: #### 2 4323-8 #### [facility] [id number] [address] [place] [address] [place] Potassium [Moles/Vol] 3.4 mmol/L Low 3.7-5.1 [facility] Comment on above: Order Comment: Radha diana Type: BLOOD SPECIMEN Ordering Facility: [facility] Address: [address] [place] [address] Performed By: #### 2 4323-8 #### [facility] CLIA [id number] [address] [place] [address] [place] Protein [Mass/Vol] 6.5 g/dL Normal 6.3-8.0 [facility] Comment on above: Order Comment: Speci men Type: BLOOD SPECIMEN Ordering Facility: [facility] Address: [facility] [place] [id number] Performed By: #### 2 4323-8 #### [id number] [address] [place] [address] [place] Sodium [Moles/Vol] 140 mmol/L Normal 136-144 [facility] Comment on above: Order Comment: Speci men Type: BLOOD SPECIMEN Ordering Facility: [facility] Address: [facility] [address] Performed By: #### 2 4323-8 #### [facility] [id number] [address] [place] [address] [place] Urea nitrogen [Mass/Vol] 5 mg/dL Low 7-21 [facility] Comment on above: Order Comment: Speci men Type: BLOOD SPECIMEN Ordering Facility: [facility] Address: [facility] [place] [id number] Performed By: #### 2 4323-8 #### [facility] [id number] [address] [place] [address] [place] US ABD RIGHT UPPER QUADRANTo n 03-02-2025 US ABD RIGHT UPPER QUADRANT * * *Final Report* * * DATE OF EXAM: Mar 02 2025 1:26PM WRU 1032 - US ABD RIGHT UPPER QUADRANT / PROCEDURE REASON: RUQ pain * * * * Physician Interpretation * * * * EXAMINATION: RIGHT UPPER QUADRANT ULTRASOUND CLINICAL HISTORY: Right upper quadrant pain TECHNIQUE: Sonography of the right upper quadrant was performed. Images were obtained and stored in a permanent archive and interpreted remotely. MQ: URUQ_2 COMPARISON: None. RESULT: Pancreas: Normal sonographic appearance. Portions obscured: tail Liver: Echotexture: Normal, homogeneous. Echogenicity: Increased Surface contour: Smooth Lesions: None. Biliary: No intrahepatic biliary duct dilation. CBD: 0.4 cm at the hilum. Gallbladder: Normal caliber -Contents: No cholelithiasis -Wall: Normal -Other: No pericholecystic fluid. Right Kidney: Normal cortical echogenicity. No hydronephrosis. Ascites: None. IMPRESSION: Hepatic steatosis. Scoreboard Operator: SULTANA Transcribe Date/Time: Mar 03 2025 10:54A Dictated by : TASHA LAND MD This examination was interpreted and the report reviewed and electronically signed by: TASHA LAND MD on Mar 03 2025 10:55AM EST [id number] Normal [facility] CNOVon 02-25-2025 CNOV Office Visit (FAMMAS ) ----- SHRUTI RUVALCABA ([id number]) 1990 F Date Time Provider Department 02/25/25 5:10 PM MARGARITA MOSLEY During your visit today, we recorded the following information about you: Temperature Pulse Respiration Blood pressure 97.6 degrees 100/minute 18/minute 122/72 Weight Height Last Period 73 kg 1.638 m 02/25/25 Damaso Mistry LPN 02/25/2025 5:48 PM Signed Patient is in office with complaint of abdominal pain. Patient began experiencing nausea and vomiting about a week ago. Patient states that she thought she was just getting sick. Patient then began to have RUQ pain in addition to the nausea and vomiting starting 4 days ago. Patient continues to not be able to eat without pain or emesis. Patient did eat cottage cheese this morning and was able to keep it down. Damaso Mistry LPN February 25, 2025 4:22 PM Margarita [place] MD 02/25/2025 5:48 PM Signed Subjective Shruti Ruvalcaba is a 34-year-old female presenting for evaluation of RUQ abdominal pain, nausea, and emesis. RUQ Abdominal Pain: - Intermittent RUQ abdominal pain, worsened significantly on Sunday after consuming fried cheese and [place] fries. - Describes pain as extreme stabbing and burrowing through me. - Pain is constant but exacerbated by eating. - Denies family history of cholelithiasis. Nausea and Emesis: - Persistent nausea and emesis since Sunday. - Emesis occurred again this morning. - No appetite; consuming minimal food (e.g., a can of soup per day, small amounts of cottage cheese). - Took a test due to nausea and emesis, which was negative. Back Pain: - Reports significant improvement in back pain. - Recent MRI showed a condition almost to the bone, leading to emergency surgery. - Describes recovery as slow but anticipates feeling better by next summer. Review of Systems GENERAL: No weight loss, malaise, or fevers. HEENT: Negative for frequent or significant headaches, no changes in vision or hearing, no nosebleeds or other nasal problems. NECK: Negative for lumps, goiter, pain, and significant neck swelling. RESPIRATORY: Negative for cough, dyspnea, or shortness of breath. CARDIOVASCULAR: Negative for chest pain, leg swelling, CHF, or palpitations. GI: Positive for nausea, vomiting, poor appetite, and right-sided abdominal pain that worsens with fatty meals. Negative for diarrhea, heartburn, blood in stool, or black stool. GENITOURINARY: No history of dysuria, frequency, or incontinence. MUSCULOSKELETAL: Negative for joint pain or swelling, or muscle pain. No current back pain. SKIN: Negative for lesions, rash, and itching. PSYCH: Negative for anxiety or depression. HEMATOLOGY/LYMPHOLOGY: No bleeding concerns. NEURO: No history of headaches, syncope, paralysis, seizures, or tremors. ENDOCRINE: No history of polydipsia, increased thirst, or other endocrine symptoms. PAST SURGICAL HISTORY Procedure Laterality Date DELIVERY ONLY 11/30/2023 LTCS EXTRACTION ERUPTED TOOTH wisdom teeth PAST SURGICAL HISTORY OF Left ACL VAGINOSCOPY PAST MEDICAL HISTORY Diagnosis Date anxiety/depression ASCUS with positive high risk HPV cervical Atypical glandular cells of undetermined significance (J LUIS) on cervical Pap smear 01/24/2022 Fielding HPV+ Breast disorder Complication of anesthesia Dysmenorrhea Excessive or frequent menstruation Heavy periods Gestational diabetes (HCC) Gestational hypertension (HCC) Migraine depression Tension headache FAMILY HISTORY Problem Relation Age of Onset Lipids Mother Hypertension Mother Thyroid Mother Hypertension Father Lipids Father No Known Problems Sister No Known Problems Sister No Known Problems Maternal Grandmother No Known Problems Maternal Grandfather Cancer Paternal Grandmother Lung Heart Paternal Grandfather MD at age 35 Alzheimer's Disease Other PGGGM Breast Cancer Other PGGGM No Known Problems Half-sister No Known Problems Son Social History Tobacco Use Smoking status: Every Day Current packs/day: 0.25 Average packs/day: 0.3 packs/day for 15.0 years (3.8 ttl pk-yrs) Types: Cigarettes Passive exposure: Never Smokeless tobacco: Never Vaping Use Vaping status: Never Used Substance Use Topics Alcohol use: Not Currently Comment: Occasionally Drug use: No ALLERGIES Allergen Reactions Pollen Unknown Headaches MEDICATIONS: traMADol (ULTRAM) 50 mg tablet TAKE 1 TABLET BY MOUTH EVERY 4 HOURS FOR PAIN FOR 7 DAYS gabapentin (NEURONTIN) 300 mg capsule TAKE 1 CAPSULE BY MOUTH THREE TIMES DAILY DIRECTED meloxicam (MOBIC) 15 mg tablet Take 1 tablet by mouth every afternoon. cyclobenzaprine (FLEXERIL) 10 mg tablet Take 1 tablet by mouth every 8 hours as needed for muscle spasm. sertraline (ZOLOFT) 50 mg tablet Take 1 tab (more content not included)... [facility] Inital Evaluation (1) - PTon 01-19-2025 Inital Evaluation (1) - PT [facility] [place] [address] / REHABILITATION SERVICES INITIAL EVALUATION MR#: [id number] Acct: [id number] Name: SHRUTI RUVALCABA Rep #: [id number] : 1990 34 From: Beth GOLDEN Referring Dr.: Dr. Enrique Dyer MD Status: R EG RCR Insurance: [employer] [facility] [employer]URANCE Patient's Visit Information Visit Information Visit Information: SHRUTI RUVALCABA is a 34 year old F referred to Physical Therapy by Dr. Enrique Dyer MD with a diagnosis of HD excision and decompression spinal cord. Date of Evaluation: 01/19/25 Physical Therapist: CHICO Pisano Visit Plan Frequency: 2x /Week Duration: 2 Months Plan: 2X/ week for 8 weeks for neutral spine core stability, Light HS and piriformis stretching, gait training, with HEP HEP: light supine piriformis stretching, green strap HS stretching Subjective Subjective: Pt was here before and she had surgery Oct 17 for L5-S1. She started to have pain around 6 weeks post op. She will go back at the end of the month to see if she needs an MRI. She has 2 little kids that need a lot of picking up. It hurts R side and back down the R of the leg. The more she does during the day it is worse. She did not take as much pain meds today because she wants to see what kind of pain today. She does not have full strength in her R leg and she only has 1/2 sensation in her R foot. She was doing some stretches at home. Pain is R side of back and down the R leg to the mid calf. She is sleeping through the night most of the time and she readjusts and can sleep. Dr does not heavy lifting at this time. Pain R Back pain: Pain Intensity (Out of 10): 4 R leg pain: Pain Intensity (Out of 10): 3 Objective Objective: Gait: walks with guarded posture and decrease trunk rotation and small step length Trunk AROM: flexion 25%, EXT 75%B, SB B 50% (INCREASE PAIN TO THE R),Rot L 25% and R 75% LE MMT: R hip flex 13.2 and L 13.3 R knee ext 12.6 and L 17.7 R knee flex 15.7 and L 14.9 +SLUMP test on the R for pain and tightness + SLR on the R for pain R HS is very tight as is R piriformis (hard to even get into that position) HS with green strap 20 sec X 4 R leg and supine piriformis (gentle ) 20 sec X 4 Pelvic Tilt: able to do without pain Balance/Special Test Scores Oswestry Low Back Score: 26 Goals Goal 1:: I HEP Goal Time Frame: 6-8 Weeks Goal 2:: Be able to complete ADL's with 50% less R sided back pain and R leg pain Goal Time Frame: 6-8 Weeks Goal 3:: Increase Flexibility of R hip (HS and piriformis) to be able to cross her R leg over her L with ease Goal Time Frame: 6-8 Weeks Goal 4:: Be able to walk long distances without her hip and back acting up on her Goal Time Frame: 6-8 Weeks Rehabilitation Potential Rehabilitation Potential: Good Anticipated Interventions Patient/Client Instruction: Educate patient on: Condition and Plan of Care For the Purpose of:: To decrease pain, To decrease swelling/inflammation, To increase ROM, To improve nutrient delivery to tissue, To improve muscle performance and motor function, To improve ability to perform ADL's, To increase tolerance to activity/condition/positi on, To improve performance and independence with ADL's, To decrease level of supervision to perform tasks, To improve ability of physical actions for home/community/work/leisu re, To improve gait and locomotor functions, To improve health of tissue, To decrease soft tissue restriction, To increase flexibility/ROM and To improve safety with gait Therapeutic Exercise to Include: Strength training, Endurance training, Balance training, Body mechanics, Postural training, Flexibilty training, Gait and locomotor training, Neuromotor development, Passive ROM, Active ROM, Dynamic Lumbar Stabilization and Scapular Strength/Stabilization For the Purpose of:: To decrease pain, To increase ROM, To improve nutrient delivery to tissue, To improve muscle performance and motor function, To improve ability to perform ADL's, To increase tolerance to activity/condition/positi on, To improve performance and independence with ADL's, To decrease level of supervision to perform tasks, To improve ability of physical actions for home/community/work/leisu re, To improve gait and locomotor functions, To improve health of tissue, To decrease soft tissue restriction, To increase flexibility/ROM, To improve endurance, To improve balance and To improve safety with gait Functional Training to Include: Gait training For the Purpose of:: To improve gait and locomotor functions Manual Therapy Techniques to Include: Passive ROM and Soft tissue mobilization For the Purpose of:: To decrease pain, To increase ROM, To improve nutrient delivery to tissue, To improve muscle performance and motor function, To (more content not included)... Normal [facility] ED Prov Noteon 11-13-2024 ED Prov Note ED PROVIDER NOTE [facility] EMERGENCY [facility] NAME: Shruti Ruvalcaba AGE: 34 y.o. : 1990 VISIT DATE: 11/13/2024 CSN: [id number] PCP: Margarita Mosley MD Chief Complaint Patient presents with Ankle Pain Chief complaint ankle pain History of present illness this is a 34-year-old female who twisted her left ankle with a E version mechanism is here with medial malleolar eye discomfort and foot discomfort is able to bear weight but minimally. I did not hear a snap and is here for assessment no trauma elsewhere denies proximal fibula or tibia pain is here with blood pressure 126/86 pulse 91 respirate 16 temp 97.6 Past Medical History: Diagnosis Date Hypertension Past Surgical History: Procedure Laterality Date ACL REPAIR Left 12/16/2018 History reviewed. No pertinent family history. Social History Socioeconomic History Marital status: Tobacco Use Smoking status: Every Day Current packs/day: 0.50 Types: Cigarettes Smokeless tobacco: Never Substance and Sexual Activity Alcohol use: Not Currently Social Drivers of Health Financial Resource Strain: Low Risk (08/06/2024) Received from [facility] Overall Financial Resource Strain (CARDIA) Difficulty of Paying Living Expenses: Not hard at all Food Insecurity: No Food Insecurity (08/06/2024) Received from [facility] Hunger Vital Sign Worried About Running Out of Food in the Last Year: Never true Ran Out of Food in the Last Year: Never true Transportation Needs: No Transportation Needs (08/06/2024) Received from [facility] PRAPARE - Transportation Lack of Transportation (Medical): No Lack of Transportation (Non-Medical): No Physical Activity: Sufficiently Active (08/06/2024) Received from [facility] Exercise Vital Sign Days of Exercise per Week: 7 days Minutes of Exercise per Session: 60 min Stress: Stress Concern Present (08/06/2024) Received from [facility] [employer] - Occupational Stress Questionnaire Feeling of Stress : Very much Social Connections: Moderately Isolated (08/06/2024) Received from [facility] Social Connection and Isolation Panel [NHANES] Frequency of Communication with Friends and Family: More than three times a week Frequency of Social Gatherings with Friends and Family: Twice a week Attends Jainism Services: Never Active Member of Clubs or Organizations: No Attends Club or Organization Meetings: Never Marital Status: Housing Stability: Low Risk (08/06/2024) Received from [facility] Housing Stability Vital Sign Unable to Pay for Housing in the Last Year: No Number of Times Moved in the Last Year: 0 Homeless in the Last Year: No Previous Medications Medication Sig aspirin 81 MG EC tablet Take 162 mg by mouth daily . cyclobenzaprine HCl (FLEXERIL ORAL) Take by mouth . labetaloL (NORMODYNE) 100 MG tablet Take 50 mg by mouth 2 (two) times a day . vitamin with Ca-Iron-FA 27-1 mg Tab Take 1 tablet by mouth daily . No Known Allergies Review of Systems All other systems reviewed and are negative. Patient Vitals for the past 24 hrs: BP Temp Pulse Resp SpO2 Height Weight 11/13/24 1230 126/86 97.6 degrees F (36.4 degrees C) 91 16 96 % 5' 5 72.6 kg (160 lb) Physical Exam Vitals and nursing note reviewed. Constitutional: General: She is in acute distress. Appearance: Normal appearance. HENT: Head: Normocephalic and atraumatic. Nose: Nose normal. Mouth/Throat: Mouth: Mucous membranes are dry. Eyes: Extraocular Movements: Extraocular movements intact. Pupils: Pupils are equal, round, and reactive to light. Cardiovascular: Rate and Rhythm: Normal rate and regular rhythm. Musculoskeletal: General: Swelling, tenderness, deformity and signs of injury present. Cervical back: Normal range of motion and neck supple. Comments: Examination left ankle reveals negative Grimaldo sign is has medium Discomfort slight midfoot tenderness. Neurological: Mental Status: She is alert. Laboratory & Radiographic Imaging (if done): No results found for this visit on 11/13/24. XR Ankle Left 3+ Views (Standard) Non-public Result Normal left ankle x-rays. Workstation ID: [id number] XR Foot Left 3+ Views (Standard) Non-public Result No acute fracture or dislocation. Workstation ID: [id number] Procedures Medical Decision Making ifferential diagnosis considered for this patient #1 ankle sprain #2 ankle fracture #3 foot contusion #4 metatarsal fracture Considering the above differential diagnosis the following tests and treatments were given with shared decision making X-ray left foot, x-ray left ankle, pain medicine crutches Amount and/or Complexity of Data Reviewed Radiology: ordered and independent interpretation performed. Details: X-ray of the foot and ankle negative . Clinical Impression: 1. Sprain of left (more content not included)... [facility] XR ANKLE LEFT 3+ VIEWS (LORENZO DARD)on 11-13-2024 XR ANKLE LEFT 3+ VIEWS (STANDARD) EXAMINATION: XR ANKLE LEFT 3+ VIEWS (STANDARD) 11/13/2024 1:08 pm HISTORY: ORDERING SYSTEM PROVIDED HISTORY: fall, TECHNOLOGIST PROVIDED HISTORY: Injury/Trauma Reason for exam: ankle charles Cancer History: no Surgery, RadiationHistory: n/a Encounter Type: Initial Mechanism of injury: twisted ankle/foot ORDERING SYSTEM PROVIDED DIAGNOSIS CODES: COMPARISON: None. FINDINGS: Three views of the left ankle obtained. Bone mineralization is normal. The alignment is normal. No acute fracture. No dislocation. No degenerative changes. IMPRESSION: Normal left ankle x-rays. DM/[facility] Workstation ID: [id number] Dictated by: CHAITANYA WILLSON on Jasmine Nov 13, 2024 1:25:59 PM EST Transcribed by: JOURDAN MANTILLA on SunNov 13, 2024 1:46:53 PM EST Finalized by: CHAITANYA WILLSON on Jasmine Nov 13, 2024 3:41:14 PM EST [facility] Comment on above: Order Comment: Injur y/Trauma or Illness?:Injury/Trauma How long have you had these symptoms (acute/chronic)?:Acute Reason for exam?:ankle charles History of cancer?:no Surgeries, chemotherapy, or radiation?:n/a Type of Exam?:Initial Mechanism of injury?:twisted ankle/foot XR FOOT LEFT 3+ VIEWS (STAND LILIA)on 11-13-2024 XR FOOT LEFT 3+ VIEWS (STANDARD) EXAMINATION: XR FOOT LEFT 3+ VIEWS (STANDARD) 11/13/2024 1:08 PM HISTORY: ORDERING SYSTEM PROVIDED HISTORY: fall, TECHNOLOGIST PROVIDED HISTORY: Injury/Trauma Reason for exam: fall Cancer History: no Surgery, RadiationHistory: n/a Encounter Type: Initial Mechanism of injury: twisted left ankle/foot COMPARISON: None. FINDINGS: Three views of the left foot obtained. Bone mineralization is normal. The alignment is normal. No acute fracture or dislocation. No radiopaque foreign body. IMPRESSION: No acute fracture or dislocation. DM/[place] Workstation ID: [id number] Dictated by: CHAITANYA WILLSON on Jasmine Nov 13, 2024 1:25:34 PM EST Transcribed by: SHORTY EPSTEIN on SunNov 13, 2024 1:45:52 PM EST Finalized by: CHAITANYA WILLSON on SunNov 13, 2024 3:41:[address] [facility] Comment on above: Order Comment: Injur y/Trauma or Illness?:Injury/Trauma How long have you had these symptoms (acute/chronic)?:Acute Reason for exam?:fall History of cancer?:no Surgeries, chemotherapy, or radiation?:n/a Type of Exam?:Initial Mechanism of injury?:twisted left ankle/foot CNOVon 10-06-2024 CNOV Office Visit ([facility] ) ----- SHRUTI RUVALCABA ([id number]) 1990 F Date Time Provider Department 10/06/24 10:20 AM MARGARITA MOSLEY During your visit today, we recorded the following information about you: Temperature Pulse Respiration Blood pressure 97.3 degrees 94/minute 18/minute 136/84 Weight Height Last Period 71.1 kg 1.638 m 10/04/24 Damaso Mistry LPN 10/06/2024 11:44 AM Signed Patient is in office for follow up from recent ED visit to [facility]. Patient continues to experience increased pain in lower back. Patient has an appointment on Sunday with [facility]. No refills needed. Damaso Mistry LPN October 06, 2024 10:34 AM Margarita Mosley MD 10/06/2024 11:44 AM Signed Subjective Shruti Ruvalcaba is a 34 year old female. She presents today for follow-up for the emergency room for acute on chronic low back pain. Her symptoms have persisted. She had recent MRI which shows severe spinal stenosis due to disc disease. Pain is radiating to her right leg. She has an extreme discomfort. She has follow-up with [facility] orthopedics this week. Review of Systems Constitutional: Negative. HENT: Negative. Eyes: Negative. Respiratory: Negative. Cardiovascular: Negative. Gastrointestinal: Negative. Endocrine: Negative. Genitourinary: Negative. Musculoskeletal: Negative. Skin: Negative. Allergic/Immunologic: Negative. Neurological: Negative. Hematological: Negative. Psychiatric/Behavioral: Negative. PAST SURGICAL HISTORY Procedure Laterality Date DELIVERY ONLY 11/30/2023 LTCS EXTRACTION ERUPTED TOOTH wisdom teeth PAST SURGICAL HISTORY OF Left ACL VAGINOSCOPY PAST MEDICAL HISTORY Diagnosis Date anxiety/depression ASCUS with positive high risk HPV cervical Atypical glandular cells of undetermined significance (J LUIS) on cervical Pap smear 01/24/2022 [place] HPV+ Breast disorder Complication of anesthesia Dysmenorrhea Excessive or frequent menstruation Heavy periods Gestational diabetes Gestational hypertension Migraine depression Tension headache FAMILY HISTORY Problem Relation Age of Onset Lipids Mother Hypertension Mother Thyroid Mother Hypertension Father Lipids Father No Known Problems Sister No Known Problems Sister No Known Problems Maternal Grandmother No Known Problems Maternal Grandfather Cancer Paternal Grandmother Lung Heart Paternal Grandfather MD at age 35 Alzheimer's Disease Other PGGGM Breast Cancer Other PGGGM No Known Problems Half-sister No Known Problems Son Social History Tobacco Use Smoking status: Every Day Current packs/day: 0.25 Average packs/day: 0.3 packs/day for 15.0 years (3.8 ttl pk-yrs) Types: Cigarettes Passive exposure: Never Smokeless tobacco: Never Vaping Use Vaping status: Never Used Substance Use Topics Alcohol use: Not Currently Comment: Occasionally Drug use: No ALLERGIES Allergen Reactions Pollen Unknown Headaches MEDICATIONS: gabapentin (NEURONTIN) 300 mg capsule TAKE 1 CAPSULE BY MOUTH THREE TIMES DAILY DIRECTED meloxicam (MOBIC) 15 mg tablet Take 1 tablet by mouth every afternoon. traMADol (ULTRAM) 50 mg tablet Take 1 tablet by mouth every 6 hours as needed for pain for up to 8 days. cyclobenzaprine (FLEXERIL) 10 mg tablet Take 1 tablet by mouth every 8 hours as needed for muscle spasm. ALPRAZolam (XANAX) 0.25 mg tablet Take 1 tablet by mouth every 6 hours as needed for anxiety for up to 90 days. sertraline (ZOLOFT) 50 mg tablet Take 1 tablet by mouth once daily. After taking 1/2 tab every day for the first week, Allergies, past surgical history, family history and past medical history were reviewed per this encounter. Medications were reviewed and verified. 08/04/2024 10/03/2024 INTAKE PAIN ASSESSMENT Are you having pain associated with your visit today? Yes, Provider notified Yes, Provider notified Pain Level 6 Pain Location Back-Lower Back-Lower Description Pressure;Radiating;Sharp; Shooting;Sore;Spasm;Stabb ing;Tenderness;Tightness; Tingling Aching;Burning;Cramping;C utting;Numbness;Radiating ;Sharp;Shooting;Sore;Spas m; Stabbing;Stabbing/Not Incision;Stiffness;Tender ness;Tightness;Tingling Duration Amount of Time 24 Duration Units Months Hours Frequency Continuous Continuous Intervention/Comfort measure Medication;Reposition;Rel axation;Cold;Education;Ex ercise;Heat;Positioning Medication;Relaxation;Col d;Education;Exercise;Heat ;Music;Pillow support;Positioning Comments Siatica Siatica If pain assessment is 0, no action needed. If pain assessment is positive, please see assessment and plain. Objective BP 136/84 (BP Site: Right Arm, BP Position: Standing, BP Cuff Size: Regular Adult) Pulse 94 Temp 36.3 ?C (97.3 ?F) (Temporal) Resp 18 Ht 163.8 cm (5' 4 (more content not included)... [facility] Slim 10-03-2024 [facility] ----- SHRUTI RUVALCABA ([id number]) 1990 F Date Time Provider Department 10/03/24 MARGARITA MOSLEY During your visit today, we recorded the following information about you: Damaso Mistry LPN 10/03/2024 10:20 AM Signed Patient phoned office requesting refill for Tramadol. Patient was recently in ED on Sunday for severe pain. Medications have changed since last visit Current Outpatient Medications on File Prior to Visit Medication Sig gabapentin (NEURONTIN) 300 mg capsule TAKE 1 CAPSULE BY MOUTH THREE TIMES DAILY DIRECTED meloxicam (MOBIC) 15 mg tablet Take 1 tablet by mouth every afternoon. traMADol (ULTRAM) 50 mg tablet cyclobenzaprine (FLEXERIL) 10 mg tablet Take 1 tablet by mouth every 8 hours as needed for muscle spasm. ALPRAZolam (XANAX) 0.25 mg tablet Take 1 tablet by mouth every 6 hours as needed for anxiety for up to 90 days. sertraline (ZOLOFT) 50 mg tablet Take 1 tablet by mouth once daily. After taking 1/2 tab every day for the first week, No current facility-administered medications on file prior to visit. She has been Alternating Tylenol with Tramadol Tramadol and Flexeril help the most Patient states she has not been taking her Xanax due to them informing her not to at the hospital. Patient is having severe anxiety due to current situation and living situation, she had to move in with mother in law, due to not being able to care for children Has follow up in our office on Sunday Damaso Mistry LPN October 03, 2024 10:18 AM Allergies As of Date: 10/03/2024 Noted Allergy Reaction POLLEN 07/08/2014 16 - Unknown Comments: Headaches Date Reviewed: 08/06/2024 Reviewed by: Damaso Mistry LPN - Fully Assessed Reason for Visit: Patient Update [1234] Primary Visit Diagnosis:Acute midline low back pain with right-sided sciatica [M54.41] Order(s):traMADol (ULTRAM) 50 mg tabletTake 1 tablet by mouth every 6 hours as needed for pain for up to 8 days.Disp: 30 tabletRfl: 0 Prescriptions as of 10/03/2024 - gabapentin (NEURONTIN) 300 mg capsule TAKE 1 CAPSULE BY MOUTH THREE TIMES DAILY DIRECTED - meloxicam (MOBIC) 15 mg tablet Take 1 tablet by mouth every afternoon. - traMADol (ULTRAM) 50 mg tablet Take 1 tablet by mouth every 6 hours as needed for pain for up to 8 days. - cyclobenzaprine (FLEXERIL) 10 mg tablet Take 1 tablet by mouth every 8 hours as needed for muscle spasm. - ALPRAZolam (XANAX) 0.25 mg tablet Take 1 tablet by mouth every 6 hours as needed for anxiety for up to 90 days. - sertraline (ZOLOFT) 50 mg tablet Take 1 tablet by mouth once daily. After taking 1/2 tab every day for the first week, Problem List As Of Date 10/03/2024 Noted Resolved Dysmenorrhea [N94.6] 12/24/2009 07/27/2023 Hypertension, essential [I10] 11/13/2022 Anxiety [F41.9] 11/13/2022 with care elsewhere, antepar*05/09/2023 Bleeding in early [O20.9] 05/09/2023 Nausea and vomiting during [O21.9] 05/09/2023 10/26/2023 History of depression [Z87.59, Z86.5*05/09/2023 History of depression [Z86.59] 05/09/2023 History of maternal hypertension [Z87.59] 05/09/2023 History of gestational diabetes in prior pregna*05/09/2023 Tobacco use disorder complicating , ch*05/09/2023 Patient request for diagnostic testing [Z01.89] 05/09/2023 07/27/2023 Abnormal cervical Papanicolaou smear affecting *05/09/2023 Single umbilical artery affecting management of*07/27/2023 Insulin controlled gestational diabetes mellitu*10/10/2023 Prescriptions ordered this encounter Disp Refills Start End TRAMADOL 50 MG TABLET 30 t* 0 10/03/2024 10/11/2024 Route: ORAL Sig: Take 1 tablet by mouth every 6 hours as needed for pain for up to 8 days. Medications Discontinued During This Encounter Prescriptions - traMADol (ULTRAM) 50 mg tablet (Discontinued) Encounter Status:Closed by MARGARITA MOSLEY on 10/03/24 [facility] Spine Lumbar (Routine)on Spine Lumbar (Routine) [facility] Imaging Services [address] [place], [place] [address] Spine Lumbar (Routine) MR#: [id number] Acct: [id number] Name: SHRUTI RUVALCABA Rep #: [id number] : 1990 F 34 From: Ramsey Salcedo MD PCP: Dr. Margarita Mosley MD Status: REG CLI Study: Spine Lumbar (Routine) Date of Exam: 10/02/24 Exam# [id number] Ordering Dr: Enrique Dyer MD [id number] STUDY: MRI LUMBAR SPINE WITHOUT CONTRAST REASON FOR EXAM: Female, 34 years old. RADICULOPATHY- RIGHT LEG TECHNIQUE: Standardized fat and water weighted pulse sequences were obtained in the sagittal and axial planes. COMPARISON: October 26, 2014 FINDINGS: T12-L1: Normal endplates. Normal disc height, hydration and normal morphology. Normal bilateral facet joints. Normal central canal and bilateral lateral recesses. Normal bilateral intervertebral neural foramina. Normal lumbar lordosis. There is no substantial scoliosis. Normal conus medullaris that terminates at T12-L1 L1-2: Schmorl''s node of the superior endplate of L2 Mild anterior endplate spurring. Normal disc height, desiccation and minimal annular bulge. Normal bilateral facet joints. Normal central canal and bilateral lateral recesses. Normal bilateral intervertebral neural foramina. L2-3: Schmorl''s node of the inferior endplate of L2 and superior endplate of L3 Degenerative endplate changes. Normal disc height, desiccation and mild annular bulge. Normal bilateral facet joints. Normal central canal and bilateral lateral recesses. Normal bilateral intervertebral neural foramina. L3-4: Normal endplates. Normal disc height, hydration and morphology. Normal bilateral facet joints. Normal central canal and bilateral lateral recesses. Normal bilateral intervertebral neural foramina. L4-5: Normal endplates. Normal disc height, hydration and morphology. Normal bilateral facet joints. Normal central canal and bilateral lateral recesses. Normal bilateral intervertebral neural foramina. L5-S1: Normal endplates. Normal disc height, desiccation and annular bulge with large broad-based right paracentral/posterolatera l disc extrusion with posterior inferior migration of disc fragment. Normal bilateral facet joints. Mild narrowing of the central canal and severe right lateral recess and subarticular stenosis displacing and compressing the descending right S1 nerve root. Moderate left neural foraminal stenosis and more severe narrowing on the right. Normal visualized sacral ala. Normal visualized paraspinous soft tissue structures. There has been significant progression of the disc disease at L5-S1 and more severe spinal stenosis since previous exam MRI/Spine Lumbar (Routine) IMPRESSION: Severe spinal stenosis at L5-S1 secondary to bulging annulus and large right paracentral/posterolatera l disc extrusion. Electronically Signed: Ramsey Salcedo MD at 16:10 EST Reading Location ID and State: [address] [place] [address] Tel , Service support , CC: Dr. Enrique Dyer MD; Dr. Margarita Mosley MD Scoreboard Operator: Signed Normal [facility] Emergency Department Summary on 10-01-2024 Emergency Department Summary [facility] Medical Records Department [address] [place] [id number] Emergency Department Summary 10/01/24 MR#: [id number] Acct: [id number] Name: SHRUTI RUVALCABA Rep #: [id number] : 1990 34 From: Enrique Khoury DO PCP: Dr. Margarita Mosley MD Status:DEP ER Location: ED HPI History of Present Illness Chief Complaint: Back Informant: patient Onset/Context/Timing Context: Gradual Onset Timing: Continuous Quality: Sharp and - (Stabbing) Location: Buttock and Right Leg Worsened by: improves with - (Sitting upright) Relieved by: Nothing Associated Symptoms Associated Symptoms: Tingling and Radiation to Right Leg; Negative for Numbness, Radiation to Left Leg, Fever, Abdominal Pain, Dysuria, Unable to Ambulate, Unable to Transfer, Urinary Retention, Urinary Incontinence, Constipation or Fecal Incontinence Narrative Narrative: Patient with sciatica pain that became worse today. Patient states she has a history of chronic sciatica pain. Patient states she has been using her home medications with no improvement. Patient states she is scheduled for an MRI tomorrow. Patient denies any bowel or bladder changes. Patient denies any saddle anesthesia. Patient denies any trauma or injury. Patient denies any recent heavy lifting. [facility] Medical History (Updated 10/01/24 @ 11:[address] Enrique Khoury, DO) Sciatica HPV (human papilloma virus) infection depression Depression Anxiety Headache Gestational HTN Gestational diabetes Tension headache Back pain Herniation of intervertebral disc between L5 and S1 Migraines HTN (hypertension) Home Medications ???Medication ???Instructions ???Recorded ???Last Taken ???Type sertraline 25 mg tablet (Zoloft) 25 mg PO DAILY depression 11/30/23 11/30/23 03:00 History acetaminophen 500 mg tablet 1,000 mg (2 x 500 mg) PO Q6 #0 tabs 12/02/23 Unknown Rx ibuprofen 600 mg tablet 600 mg PO Q6H #0 tabs 12/02/23 Unknown Rx oxycodone 5 mg tablet 5 mg PO Q6H 7 days #7 tabs 12/02/23 Unknown Rx tramadol 50 mg tablet 50 mg PO Q6H PRN PRN Pain 3 days 10/01/24 Unknown Rx #12 tabs Allergy/AdvReac Type Severity Reaction Status Date / Time No Known Allergies Allergy Verified 10/01/24 09:06 Family History Grandfather Myocardial infarction Other Hypertension Surgical History (Updated 10/01/24 @ 10:[address] Enrique Khoury, DO) Hx of section H/O reconstruction of anterior cruciate ligament tear Social History Smoking Status: Current every day smoker tobacco type: cigarettes alcohol intake: current Alcohol type: beer ROS ROS ED Constitutional Constitutional ED: Denies chills or fever(s) Eyes Eyes: Denies blurry vision or change in vision ENT ENT ED: Denies rhinorrhea or sore throat Cardiovascular Cardiovascular: Denies chest pain or palpitations Respiratory/Chest Respiratory/Chest: Denies cough or dyspnea Gastrointestinal Gastrointestinal: Denies nausea or vomiting Genitourinary Genitourinary ED: Denies dysuria or hematuria Musculoskeletal Musculoskeletal: Reports back pain; Denies neck pain Integumentary Denies abscess or rash Neurologic Neurologic: Denies headache(s) or weakness Allergic/Immunologic Allergic/Immunologic ED: Denies mouth swelling or urticaria EXAM Physical Exam Const Vital Signs: 10/01/24 09:04 Temperature 97.4 F L Temperature Source Oral Pulse Rate 101 H Respiratory Rate 20 H Blood Pressure 165/102 H Blood Pressure Mean 123 Pulse Ox 100 Oxygen Delivery Method Room Air Positive well nourished and well developed General Appearance ED: well developed and NAD HEENT Reports moist mucous membranes Neck supple and no JVD Back/Spine Back/Spine Narrative: There is tenderness palpation over the right sciatic notch and right gluteal area. There is no edema or ecchymosis. There is no bony crepitus or step-off. There is no lumbar spine tenderness. Range of motion was limited in all motions of the lumbar spine and sacrum secondary to pain. Strength is 5/5 bilaterally in the lower extremities. There are no sensory deficits noted. Deep tendon reflexes are 2/4 bilaterally in the lower extremities. There is radicular pain with straight leg raising on the right. Lumbar Spine / Lower Back: ROM limited and straight leg raise positive right at 30 degrees Neuro oriented x3 and no sensory deficits noted Sensorium / Orientation: alert Motor Exam: strength 5/5 throughout Deep Tendon Reflexes: Rt Patellar (L4): 2+, Lt Patellar (L4): 2+, Rt Ankle (S1): 2+ and Lt Ankle (S1): 2+ Deep Tendon Reflexes Back: Rt Patellar (L4): 2+, Lt Patellar (L4): 2+, Rt Ankle (S1): 2+ and Lt Ankle (S1): 2+ Psych m (more content not included)... Normal [facility] Inital Evaluation (1) - PTon 09-18-2024 Inital Evaluation (1) - PT [facility] Physical Therapy [facility] [address] [place] [address] [address] [place] [address] / REHABILITATION SERVICES INITIAL EVALUATION MR#: [id number] Acct: [id number] Name: SHRUTI RUVALCABA Rep #: [id number] : 1990 34 From: Anton Loza PT, Cert. T, [facility] Referring Dr.: Dr. nErique Dyer MD Status: R EG RCR Insurance: [facility] Patient's Visit Information Visit Information Visit Information: SHRUTI RUVALCABA is a 34 year old F referred to Physical Therapy by Dr. Enrique Dyer MD with a diagnosis of LUMBAR RADICULOPATHY ,SPONDYLOSIS. Date of Evaluation: 09/18/24 Physical Therapist: Anton Loza, PT, Cert MDT, OCS Visit Plan Frequency: 2x /Week Duration: 4 Weeks Plan: PT INTERVENTIONS AMADO EX'S WITH PROGRESSION OF FORCES ,MANUAL THERAPY,PROGRESS TO DLS WHEN PAIN IS REDUCED ,POSTURAL EX'S AND MODALITIES FOR PAIN ,PATIENT EDUCATION POSTURE /,MECHANICS Subjective Subjective: This 34 y/o female presents to physical therapy with lumbar radiculopathy. Patient has had sciatica pain for 11 years was better, then 2 months ago shoveling stone next day pain in right leg. Pain located right LS buttock to hamstrings to calf to foot . Seen DR x-rays mild DDD plan for MRI medication gabapentin ,muscle relaxer ,tramadol . Initially ,prednisone. Denies paresthesia/tingling right Aggravating bending,lifting ,sitting ,driving and standing. Alleviating factors walking. Coughing/sneezing-. Bowel/bladder-. Patient pain affects sleeping. Patient had PT many years ago. Patient condition affects QOL and function/job demands. Patient goals to decrease pain avoid surgery. Possible pain management . 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 Right Back: Pain Intensity (Out of 10): 8 Pain Intensity Range: 10 Right Lower Extremity: Pain Intensity (Out of 10): 5 Pain Intensity Range: 10 Objective Objective: POSTURE: mild forward posture GAIT: reciprocal pattern NEURO: c/o paresthesia/tingling foot ,reflexes L3-4,LL4-5,L5-S1 1/3 ,MYOTOME RLE PALPATION: unremarkable LUMBAR ROM: flexion mod .loss pain , extension min loss , side glides min loss MMT: quads 3+/5 ,hip flexion 3+/5 ,hip flexion 3+/4 ,ankle 4/5 G-S 4-/5 ,left 4/5 Special Tests L/S Slump test left side: Negative L/S Slump test right side: Positive L/S Left Straight Leg Raise: Negative L/S Right Straight Leg Raise: Positive Lumbar Standing: Flexion - Mechanical Response: No effect Lumbar Standing: Flexion - Symptoms During Testing: Increases Lumbar Standing: Flexion - Symptoms After Testing: Worse Lumbar Standing: Extension - Mechanical Response: No effect Lumbar Standing: Extension - Symptoms During Testing: Decreases Lumbar Standing: Extension - Symptoms After Testing: Better Lumbar Standing: Right Side Glides - Mechanical Response: No effect Lumbar Standing: Right Side Banco - Symptoms During Testing: No effect Lumbar Standing: Right Side Banco - Symptoms After Testing: No effect Lumbar Standing: Left Side Banco - Mechanical Response: No effect Lumbar Standing: Left Side Banco - Symptoms During Testing: No effect Lumbar Lying: Flexion - Mechanical Response: No effect Lumbar Lying: Flexion - Symptoms During Testing: Increases Lumbar Lying: Flexion - Symptoms After Testing: Worse Lumbar Lying: Extension - Mechanical Response: No effect Lumbar Lying: Extension - Symptoms During Testing: Decreases Lumbar Lying: Extension - Symptoms After Testing: Better Balance/Special Test Scores Oswestry Low Back Score: 35 Goals Goal 1:: Patient to be I with HEP for back Goal Time Frame: 4-6 Weeks Goal 2:: Patient to demonstrate 50% improvement with less pain and improved function. 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 Goal Time Frame: 4-6 Weeks Goal 4:: Patient to improve back oswestry score by 5 points to improve functio Goal Time Frame: 4-6 Weeks Goal 5:: Patient to improve be d/c to prophylaxes to manage and decrease recurrence of pain 50% Goal Time Frame: 4-6 Weeks Rehabilitation Potential Physical Therapy Diagnosis: This patient has lumbar radiculopathy with HNP L5-S1 worse with derangement below knee worse with flexion better with extension ,positioning and motion testing walking is better thus benefit from skilled PT Rehabilitation Potential: Good Anticipated Interventions Patient/Client Instruction: Educate patient on: Condition and Plan of Care For the Purpose of:: To decrease pain, To increase ROM, To increase oxygenation perfusion, To improve ability to perform ADL's, To increase tolerance to activity/condition/positi on, To improve ability of physical actions for home/community/work/leisu re, To improve health of tissue, To decrease soft tissue restriction, To increase flexibility/ROM, To reduce risk of (more content not included)... [facility] 08-18-2024 [facility] Telephone ([facility]) ----- SHRUTI RUVALCABA ([id number]) 1990 F Date Time Provider Department 08/18/24 MARGARITA MOSLEY During your visit today, we recorded the following information about you: Damaso Mistry LPN 08/18/2024 2:37 PM Signed Patient phoned office requesting a refill on Tramadol for increased back pain. Patient does have an appointment scheduled with [facility] next Sunday, but states she is needing medication up to the appointment for her pain Damaso Mistry LPN August 18, 2024 2:36 PM Margarita Mosley MD 08/18/2024 4:42 PM Signed signed Damaso Mistry LPN 08/18/2024 4:49 PM Signed Patient notified of information, verbalized understanding. No questions, comments, or concerns at this time. Damaso Mistry LPN August 18, 2024 4:49 PM Allergies As of Date: 08/18/2024 Noted Allergy Reaction POLLEN 07/08/2014 16 - Unknown Comments: Headaches Date Reviewed: 08/06/2024 Reviewed by: Damaso Mistry LPN - Fully Assessed Reason for Visit: Refill Request [94] Primary Visit Diagnosis:Acute midline low back pain with right-sided sciatica [M54.41] Order(s):traMADol (ULTRAM) 50 mg tabletTake 1 tablet by mouth every 6 hours as needed for pain for up to 7 days.Disp: 28 tabletRfl: 0 Prescriptions as of 08/18/2024 - traMADol (ULTRAM) 50 mg tablet Take 1 tablet by mouth every 6 hours as needed for pain for up to 7 days. - cyclobenzaprine (FLEXERIL) 10 mg tablet Take 1 tablet by mouth every 8 hours as needed for muscle spasm. - ALPRAZolam (XANAX) 0.25 mg tablet Take 1 tablet by mouth every 6 hours as needed for anxiety for up to 90 days. - sertraline (ZOLOFT) 50 mg tablet Take 1 tablet by mouth once daily. After taking 1/2 tab every day for the first week, Problem List As Of Date 08/18/2024 Noted Resolved Dysmenorrhea [N94.6] 12/24/2009 07/27/2023 Hypertension, essential [I10] 11/13/2022 Anxiety [F41.9] 11/13/2022 with care elsewhere, antepar*05/09/2023 Bleeding in early [O20.9] 05/09/2023 Nausea and vomiting during [O21.9] 05/09/2023 10/26/2023 History of depression [Z87.59, Z86.5*05/09/2023 History of depression [Z86.59] 05/09/2023 History of maternal hypertension [Z87.59] 05/09/2023 History of gestational diabetes in prior pregna*05/09/2023 Tobacco use disorder complicating , ch*05/09/2023 Patient request for diagnostic testing [Z01.89] 05/09/2023 07/27/2023 Abnormal cervical Papanicolaou smear affecting *05/09/2023 Single umbilical artery affecting management of*07/27/2023 Insulin controlled gestational diabetes mellitu*10/10/2023 Prescriptions ordered this encounter Disp Refills Start End TRAMADOL 50 MG TABLET 28 t* 0 08/18/2024 08/25/2024 Route: ORAL Sig: Take 1 tablet by mouth every 6 hours as needed for pain for up to 7 days. Encounter Status:Closed by MARGARITA MOSLEY on 08/18/24 [facility]lim 08-11-2024 [facility] ----- SHRUTI RUVALCABA ([id number]) 1990 F Date Time Provider Department 08/11/24 MARGARITA MOSLEY During your visit today, we recorded the following information about you: Mira Euceda MA 08/11/2024 11:21 AM Signed Items addressed in this encounter: Fax/Forms Orthopedic Referral has been faxed to [facility] [phone] Faxed via [employer], fax confirmation received Able to close encounter. Mira Euceda MA August 11, 2024 11:11 AM 11:11 AM Allergies As of Date: 08/11/2024 Noted Allergy Reaction POLLEN 07/08/2014 16 - Unknown Comments: Headaches Date Reviewed: 08/06/2024 Reviewed by: Damaso Mistry LPN - Fully Assessed Reason for Visit: Orthopedic Referral has been faxed to [facility] [Other] Prescriptions as of 08/11/2024 - cyclobenzaprine (FLEXERIL) 10 mg tablet Take 10 mg by mouth every 8 hours as needed for muscle spasm. - ALPRAZolam (XANAX) 0.25 mg tablet Take 1 tablet by mouth every 6 hours as needed for anxiety for up to 90 days. - methylPREDNISolone (MEDROL, TIM,) 4 mg Dose-Pack Take as instructed per package. - sertraline (ZOLOFT) 50 mg tablet Take 1 tablet by mouth once daily. After taking 1/2 tab every day for the first week, - traMADol (ULTRAM) 50 mg tablet Take 1 tablet by mouth every 6 hours as needed for pain for up to 7 days. Problem List As Of Date 08/11/2024 Noted Resolved Dysmenorrhea [N94.6] 12/24/2009 07/27/2023 Hypertension, essential [I10] 11/13/2022 Anxiety [F41.9] 11/13/2022 with care elsewhere, antepar*05/09/2023 Bleeding in early [O20.9] 05/09/2023 Nausea and vomiting during [O21.9] 05/09/2023 10/26/2023 History of depression [Z87.59, Z86.5*05/09/2023 History of depression [Z86.59] 05/09/2023 History of maternal hypertension [Z87.59] 05/09/2023 History of gestational diabetes in prior pregna*05/09/2023 Tobacco use disorder complicating , ch*05/09/2023 Patient request for diagnostic testing [Z01.89] 05/09/2023 07/27/2023 Abnormal cervical Papanicolaou smear affecting *05/09/2023 Single umbilical artery affecting management of*07/27/2023 Insulin controlled gestational diabetes mellitu*10/10/2023 Encounter Status:Closed by MIRA EUCEDA on 08/11/24 [facility] CNPN Telephone ([facility]) ----- SHRUTI RUVALCABA ([id number]) 1990 F Date Time Provider Department 08/11/24 MARGARITA MOSLEY [facility] During your visit today, we recorded the following information about you: Mira Euceda MA 08/11/2024 11:23 AM Signed Items addressed in this encounter: [employer] Encounter Ortho referral info given via [employer] Able to close encounter. Mira Euceda MA August 11, 2024 11:21 AM 11:21 AM Allergies As of Date: 08/11/2024 Noted Allergy Reaction POLLEN 07/08/2014 16 - Unknown Comments: Headaches Date Reviewed: 08/06/2024 Reviewed by: Damaso Mistry LPN - Fully Assessed Reason for Visit: Ortho referral info given via [employer] [Other] Prescriptions as of 08/11/2024 - cyclobenzaprine (FLEXERIL) 10 mg tablet Take 10 mg by mouth every 8 hours as needed for muscle spasm. - ALPRAZolam (XANAX) 0.25 mg tablet Take 1 tablet by mouth every 6 hours as needed for anxiety for up to 90 days. - methylPREDNISolone (MEDROL, TIM,) 4 mg Dose-Pack Take as instructed per package. - sertraline (ZOLOFT) 50 mg tablet Take 1 tablet by mouth once daily. After taking 1/2 tab every day for the first week, - traMADol (ULTRAM) 50 mg tablet Take 1 tablet by mouth every 6 hours as needed for pain for up to 7 days. Problem List As Of Date 08/11/2024 Noted Resolved Dysmenorrhea [N94.6] 12/24/2009 07/27/2023 Hypertension, essential [I10] 11/13/2022 Anxiety [F41.9] 11/13/2022 with care elsewhere, antepar*05/09/2023 Bleeding in early [O20.9] 05/09/2023 Nausea and vomiting during [O21.9] 05/09/2023 10/26/2023 History of depression [Z87.59, Z86.5*05/09/2023 History of depression [Z86.59] 05/09/2023 History of maternal hypertension [Z87.59] 05/09/2023 History of gestational diabetes in prior pregna*05/09/2023 Tobacco use disorder complicating , ch*05/09/2023 Patient request for diagnostic testing [Z01.89] 05/09/2023 07/27/2023 Abnormal cervical Papanicolaou smear affecting *05/09/2023 Single umbilical artery affecting management of*07/27/2023 Insulin controlled gestational diabetes mellitu*10/10/2023 Encounter Status:Closed by MIRA EUCEDA on 08/11/24 [facility]NPN Telephone ([facility]) ----- SHRUTI RUVALCABA ([id number]) 1990 F Date Time Provider Department 08/11/24 MARGARITA MOSLEYS During your visit today, we recorded the following information about you: Damaso Mistry LPN 08/11/2024 12:44 PM Signed Referral faxed to [facility] as requested by patient My chart message sent with information. Damaso Mistry LPN August 11, 2024 12:39 PM Allergies As of Date: 08/11/2024 Noted Allergy Reaction POLLEN 07/08/2014 16 - Unknown Comments: Headaches Date Reviewed: 08/06/2024 Reviewed by: Damaso Mistry LPN - Fully Assessed Reason for Visit: Referral Information [[id number]] Prescriptions as of 08/11/2024 - cyclobenzaprine (FLEXERIL) 10 mg tablet Take 10 mg by mouth every 8 hours as needed for muscle spasm. - ALPRAZolam (XANAX) 0.25 mg tablet Take 1 tablet by mouth every 6 hours as needed for anxiety for up to 90 days. - methylPREDNISolone (MEDROL, TIM,) 4 mg Dose-Pack Take as instructed per package. - sertraline (ZOLOFT) 50 mg tablet Take 1 tablet by mouth once daily. After taking 1/2 tab every day for the first week, - traMADol (ULTRAM) 50 mg tablet Take 1 tablet by mouth every 6 hours as needed for pain for up to 7 days. Problem List As Of Date 08/11/2024 Noted Resolved Dysmenorrhea [N94.6] 12/24/2009 07/27/2023 Hypertension, essential [I10] 11/13/2022 Anxiety [F41.9] 11/13/2022 with care elsewhere, antepar*05/09/2023 Bleeding in early [O20.9] 05/09/2023 Nausea and vomiting during [O21.9] 05/09/2023 10/26/2023 History of depression [Z87.59, Z86.5*05/09/2023 History of depression [Z86.59] 05/09/2023 History of maternal hypertension [Z87.59] 05/09/2023 History of gestational diabetes in prior pregna*05/09/2023 Tobacco use disorder complicating , ch*05/09/2023 Patient request for diagnostic testing [Z01.89] 05/09/2023 07/27/2023 Abnormal cervical Papanicolaou smear affecting *05/09/2023 Single umbilical artery affecting management of*07/27/2023 Insulin controlled gestational diabetes mellitu*10/10/2023 Letter Text Encounter Status:Closed by BRAYDON MISTRY LAUREN on 08/11/24 [facility] CNOVon 08-06-2024 CNOV Office Visit ([facility] ) ----- SHRUTI RUVALCABA ([id number]) 1990 F Date Time Provider Department 08/06/24 2:10 PM MARGARITA MOSLEY During your visit today, we recorded the following information about you: Temperature Pulse Respiration Blood pressure 96.9 degrees 96/minute 18/minute 118/82 Weight Height Last Period 71.2 kg 1.638 m 08/06/24 Damaso Mistry LPN 08/06/2024 3:03 PM Signed [facility] [employer]INTENANCE Pneumococcal Vaccine(1 of 2 - PCV) declined Hepatitis B Vaccine(1 of 3 - 19+ 3-dose series) declined Annual PCP Team Chronic Disease Visit declined Influenza Vaccine(1) declined Covid-19 Vaccine( - season) declined Cervical Cancer Screening due on 01/09/2025 Damaso Mistry LPN August 06, 2024 2:06 PM Margarita Mosley MD 08/06/2024 3:03 PM Signed Subjective Shruti Ruvalcaba is a 34 year old female. She presents today for her annual wellness visit. Additionally she has new complaint of low back pain with sciatica radiating to her right leg. She has a history of bulging disc in her lower back. She also complains of increased anxiety. She was previously on Zoloft, but stopped it while being . She has been taking some old Xanax with improvement of symptoms. Review of Systems Constitutional: Negative. HENT: Negative. Eyes: Negative. Respiratory: Negative. Cardiovascular: Negative. Gastrointestinal: Negative. Endocrine: Negative. Genitourinary: Negative. Musculoskeletal: Negative. Skin: Negative. Allergic/Immunologic: Negative. Neurological: Negative. Hematological: Negative. Psychiatric/Behavioral: Negative. PAST SURGICAL HISTORY Procedure Laterality Date DELIVERY ONLY 11/30/2023 LTCS EXTRACTION ERUPTED TOOTH wisdom teeth PAST SURGICAL HISTORY OF Left ACL VAGINOSCOPY PAST MEDICAL HISTORY Diagnosis Date anxiety/depression ASCUS with positive high risk HPV cervical Atypical glandular cells of undetermined significance (J LUIS) on cervical Pap smear 01/24/2022 [place] HPV+ Breast disorder Complication of anesthesia Dysmenorrhea Excessive or frequent menstruation Heavy periods Gestational diabetes Gestational hypertension Migraine depression Tension headache FAMILY HISTORY Problem Relation Age of Onset Lipids Mother Hypertension Mother Thyroid Mother Hypertension Father Lipids Father No Known Problems Sister No Known Problems Sister No Known Problems Maternal Grandmother No Known Problems Maternal Grandfather Cancer Paternal Grandmother Lung Heart Paternal Grandfather MD at age 35 Alzheimer's Disease Other PGGGM Breast Cancer Other PGGGM No Known Problems Half-sister No Known Problems Son Social History Tobacco Use Smoking status: Every Day Current packs/day: 0.25 Average packs/day: 0.3 packs/day for 15.0 years (3.8 ttl pk-yrs) Types: Cigarettes Passive exposure: Never Smokeless tobacco: Never Vaping Use Vaping status: Never Used Substance Use Topics Alcohol use: Not Currently Comment: Occasionally Drug use: No ALLERGIES Allergen Reactions Pollen Unknown Headaches MEDICATIONS: cyclobenzaprine (FLEXERIL) 10 mg tablet Take 10 mg by mouth every 8 hours as needed for muscle spasm. traMADol (ULTRAM) 50 mg tablet Take 50 mg by mouth every 6 hours as needed for pain. ALPRAZolam (XANAX) 0.25 mg tablet Take 1 tablet by mouth every 6 hours as needed for anxiety for up to 90 days. methylPREDNISolone (MEDROL, TIM,) 4 mg Dose-Pack Take as instructed per package. sertraline (ZOLOFT) 50 mg tablet Take 1 tablet by mouth once daily. After taking 1/2 tab every day for the first week, Allergies, past surgical history, family history and past medical history were reviewed per this encounter. Medications were reviewed and verified. 02/21/2024 08/04/2024 INTAKE PAIN ASSESSMENT Are you having pain associated with your visit today? No Yes, Provider notified Pain Level 6 Pain Location Back-Lower Description Pressure;Radiating;Sharp; Shooting;Sore;Spasm;Stabb ing;Tenderness;Tightness; Tingling Duration Units Months Frequency Continuous Intervention/Comfort measure Medication;Reposition;Rel axation;Cold;Education;Ex ercise;Heat;Positioning Comments Siatica If pain assessment is 0, no action needed. If pain assessment is positive, please see assessment and plain. Objective BP 118/82 (BP Site: Left Arm, BP Position: Sitting, BP Cuff Size: Regular Adult) Pulse 96 Temp 36.1 ?C (96.9 ?F) (Temporal) Resp 18 Ht 163.8 cm (5' 4.5) Wt 71.2 kg (157 lb) LMP 08/06/2024 (Exact Date) SpO2 98% No BMI 26.53 kg/m? Physical Exam Vitals reviewed. Constitutional: Appearance: Normal appearance. HENT: Head: Normocephalic and atraumatic. Nose: Nose normal. Eyes: Extraocular Movements: Extraocular movements intact. (more content not included)... Normal [facility] UA DIP,URINE HCG (POC)on Beta HCG ( test) Ql (U) Negative Negative [facility] Comment on above: Location:[facility], [address], [place], [address] [employer] (POCT) Internal QC OK [facility] Location:[facility], [address], [place], [address] [facility] POINT OF CARE [facility] Basophil percentageOrdered B y: Chris Law on 12-01-2023 Hemoglobin (Bld) [Mass/Vol] 11.0 g/dL 12.0-15.0 [facility] WBC (Bld) [#/Vol] 17.9 10*3/uL 4.4-11.0 [facility] Determination of erythrocyte mean corpuscular volume (MCV)Ordered By: Chris Law on 12-01-2023 MCV (RBC) [Entitic vol] 92.1 fL 81-99 [facility] Erythrocyte distribution wid th ratioOrdered By: Chris Law on 12-01-2023 Erythrocyte distribution width (RBC) [Ratio] 12.8 % 11.6-14.6 [facility] Erythrocyte distribution wid th standard deviationOrdered By: Chris Law on 12-01-2023 Erythrocyte distribution width (RBC) [Entitic vol] 42.1 fL 35.1-43.9 [facility] Hematocrit Auto (Bld) [Volum e fraction]Ordered By: Chris Law on 12-01-2023 Hematocrit (Bld) [Volume fraction] 33.6 % 37-47 [facility] Laboratory - Hematology and Cell countsOrdered By: Chris Law on 12-01-2023 MCH (RBC) [Entitic mass] 30.1 pg 27.0-32.0 [facility] MCHC (RBC) [Mass/Vol] 32.7 g/dL 32-36 [facility] Platelet mean volume (Bld) [Entitic vol] 10.4 fL 6.2-12.0 [facility] Platelets (Bld) [#/Vol] 231 10*3/uL 150-450 [facility] RBC Auto (Bld) [#/Vol]Ordere d By: Chris Law on 12-01-2023 RBC (Bld) [#/Vol] 3.65 10*6/uL 4.2-5.4 [facility] Thin prep Papanicolaou smear with manual screeningOrdered By: Chris Law on 12-01-2023 Thin prep Papanicolaou smear with manual screening 132 mg/dL 74-106 [facility] Comment on above: MANAGEMENT OF PATIEN T CARE PER NURSING PROTOCOL Absolute lymphocyte countOrd ered By: Chris Law on 11-30-2023 Lymphocytes Auto (Unsp spec) [#/Vol] 2.18 10*3/uL 0.83-4.51 [facility] Automated lymphocyte count a s percentage of total leukocytesOrdered By: Chris Law on 11-30-2023 Lymphocytes/100 WBC Auto (Unsp spec) 17.4 % 19-41 [facility] Basophil percentageOrdered B y: Chris Law on 11-30-2023 Basophils/100 WBC (Bld) 0.4 % 0-1 [facility] [place] Eosinophils/100 WBC (Bld) 1.3 % 0-5 [facility] [place] Monocytes/100 WBC (Bld) 8.4 % 0-10 [facility] [place] Neutrophils (Bld) [#/Vol] 9.1 10*3/uL 2.0-7.7 [facility] [place] Neutrophils/100 WBC (Bld) 72.0 % 47-70 [facility] [place] Immature granulocytes/100 WB C Auto (Bld)Ordered By: Chris Law on 11-30-2023 Immature granulocytes/100 WBC (Bld) 0.500 % 0.0-0.9 [facility] [place] Comment on above: IG% - Immature Granu locytes (promyelocytes, myelocytes and metamyelocytes) > 1% indicates that a LEFT SHIFT is Present. Laboratory - Hematology and Cell countsOrdered By: Chris Law on 11-30-2023 Nucleated RBC/100 WBC (Bld) [Ratio] 0 % 0-5 [facility] [place] Serum Treponema species anti body detectionOrdered By: Chris Law on 11-30-2023 Treponema sp Ab Ql (S) Non-Reactive [facility] [place] URINE OB DIP B/Oon 4 Glucose Ql (U) Negative Neg mg/dL [facility] Protein.monoclonal (U) [Mass/Vol] Negative Neg mg/dL [facility] URINE OB DIP B/Oon 4 Glucose Ql (U) Negative Neg mg/dL [facility] Protein.monoclonal (U) [Mass/Vol] Negative Neg mg/dL [facility] URINE OB DIP B/Oon 4 Glucose Ql (U) 100 mg/dL Neg mg/dL [facility] Protein.monoclonal (U) [Mass/Vol] trace Neg mg/dL [facility] URINE OB DIP B/Oon 4 Glucose Ql (U) Negative Neg mg/dL [facility] Protein.monoclonal (U) [Mass/Vol] trace Neg mg/dL [facility] URINE OB DIP B/Oon 4 Glucose Ql (U) Negative Neg mg/dL [facility] Protein.monoclonal (U) [Mass/Vol] trace Neg mg/dL [facility] URINE OB DIP B/Oon 4 Glucose Ql (U) Negative Neg mg/dL [facility] Protein.monoclonal (U) [Mass/Vol] Negative Neg mg/dL [facility] URINE OB DIP B/Oon 3 Glucose Ql (U) Negative Neg mg/dL [facility] Protein.monoclonal (U) [Mass/Vol] Negative Neg mg/dL [facility] OBSTETRIC ULTRASOUND WHIon 1 09-26-2022 [facility] URINE OB DIP B/Oon 3 Glucose Ql (U) Negative Neg mg/dL [facility] Protein.monoclonal (U) [Mass/Vol] trace Neg mg/dL [facility] URINE OB DIP B/Oon 3 Glucose Ql (U) Negative Neg mg/dL [facility] Protein.monoclonal (U) [Mass/Vol] Negative Neg mg/dL [facility] NUCHAL TRANSLUCENCY WHIon [facility] C. trachomatis+N. gonorrhoea e DNA ALLIE+probe Ql (Unsp spec)on 05-02-2023 C. trachomatis rRNA ALLIE+probe Ql (Unsp spec) Negative Negative for Chlamydia trachomatis by amplificaton [facility] N. gonorrhoeae rRNA ALLIE+probe Ql (Unsp spec) Negative Negative for Neisseria gonorrhoeae by amplification [facility] Absolute lymphocyte countOrd ered By: Remus Evans on 04-29-2023 Lymphocytes Auto (Unsp spec) [#/Vol] 2.01 10*3/uL 0.83-4.51 [facility] [place] Basophil percentageOrdered B y: Remus Cristina on 04-29-2023 Basophils/100 WBC (Bld) 0.4 % 0-1 [facility] [place] Eosinophils/100 WBC (Bld) 2.0 % 0-5 [facility] [place] Neutrophils (Bld) [#/Vol] 10.7 10*3/uL 2.0-7.7 [facility] [place] Neutrophils/100 WBC (Bld) 75.4 % 47-70 [facility] [place] WBC (Bld) [#/Vol] 14.3 10*3/uL 4.4-11.0 [facility] Blood erythrocytes count (nu mber/volume)Ordered By: Remus Evans on 04-29-2023 RBC (Bld) [#/Vol] 5.27 10*6/uL 4.2-5.4 [facility] Blood hemoglobin measurement (mass/volume)Ordered By: Remus Cristina on 04-29-2023 Hemoglobin (Bld) [Mass/Vol] 16.8 g/dL 12.0-15.0 [facility] [place] Blood lymphocytes/100 leukoc ytesOrdered By: Remus Ungliv on 04-29-2023 Lymphocytes/100 WBC (Bld) 14.1 % 19-41 [facility] [place] Blood monocytes/100 leukocyt esOrdered By: Remus Ungur on 04-29-2023 Monocytes/100 WBC (Bld) 7.7 % 0-10 [facility] [place] Blood platelet mean volumeOr dered By: Remus Ungur on 04-29-2023 Platelet mean volume (Bld) [Entitic vol] 9.6 fL 6.2-12.0 [facility] [place] Determination of erythrocyte mean corpuscular volume (MCV)Ordered By: David Evans on 04-29-2023 MCV (RBC) [Entitic vol] 92.2 fL 81-99 [facility] [place] Hematocrit Auto (Bld) [Volum e fraction]Ordered By: David Evans on 04-29-2023 Hematocrit (Bld) [Volume fraction] 48.6 % 37-47 [facility] [place] Laboratory - Hematology and Cell countsOrdered By: Davdi Evans on 04-29-2023 Erythrocyte distribution width (RBC) [Entitic vol] 40.8 fL 35.1-43.9 [facility] [place] Erythrocyte distribution width (RBC) [Ratio] 11.9 % 11.6-14.6 [facility] [place] Immature granulocytes/100 WBC (Bld) 0.400 % 0.0-0.9 [facility] [place] Comment on above: IG% - Immature Granu locytes (promyelocytes, myelocytes and metamyelocytes) > 1% indicates that a LEFT SHIFT is Present. MCH (RBC) [Entitic mass] 31.9 pg 27.0-32.0 [facility] [place] Nucleated RBC/100 WBC (Bld) [Ratio] 0 % 0-5 [facility] [place] MCHC Auto (RBC) [Mass/Vol]Or dered By: David Evans on 04-29-2023 MCHC (RBC) [Mass/Vol] 34.6 g/dL 32-36 [facility] [place] Platelets bldOrdered By: Daphney Evans on 04-29-2023 Platelets (Bld) [#/Vol] 295 10*3/uL 150-450 [facility] [place] Serum or plasma choriogonado tropin detectionOrdered By: David Evans on 04-29-2023 HCG ( test) Ql 43773 mIU/mL <4 [facility] [place] Comment on above: hCG levels with Gest ational AgeGestational Age hCG mIU/mL (IU/L)0.2 - 1 week 5 - 501-2 weeks 50 - 5002-3 weeks 100 - 92615-5 weeks 500 - 555009-1 weeks 1000 - 712258-9 weeks 15795 - 100,0006-8 weeks 43255 - 200,0002-3 months 82793 - 100,000 Absolute lymphocyte countOrd ered By: Anton Islas on 04-12-2023 Lymphocytes Auto (Unsp spec) [#/Vol] 2.18 10*3/uL 0.83-4.51 [facility] [place] Automated blood hematocrit ( percentage)Ordered By: Anton Islas on 04-12-2023 Hematocrit (Bld) [Volume fraction] 48.2 % Abnormal 36.0 - 46.0 % [facility] [place] Basophil percentageOrdered B y: Anton Islas on 04-12-2023 Basophils/100 WBC (Bld) 0.6 % 0-1 [facility] [place] Eosinophils/100 WBC (Bld) 1.6 % 0-5 [facility] [place] Neutrophils (Bld) [#/Vol] 7.5 10*3/uL 2.0-7.7 [facility] [place] Neutrophils/100 WBC (Bld) 66.5 % 47-70 [facility] [place] WBC (Bld) [#/Vol] 11.3 10*3/uL 4.4-11.0 [facility] Blood erythrocytes count (nu mber/volume)Ordered By: Anton Islas on 04-12-2023 RBC (Bld) [#/Vol] 5.23 10*6/uL 4.2-5.4 [facility] Blood hemoglobin measurement (mass/volume)Ordered By: Anton Islas on 04-12-2023 Hemoglobin (Bld) [Mass/Vol] 16.7 g/dL Abnormal 11.5 - 15.5 g/dL [facility] [place] Blood lymphocytes/100 leukoc ytesOrdered By: Anton Islas on 04-12-2023 Lymphocytes/100 WBC (Bld) 19.3 % 19-41 [facility] [place] Blood monocytes/100 leukocyt esOrdered By: Anton Islas on 04-12-2023 Monocytes/100 WBC (Bld) 11.6 % 0-10 [facility] [place] Blood platelet mean volumeOr dered By: Anton Islas on 04-12-2023 Platelet mean volume (Bld) [Entitic vol] 9.6 fL 6.2-12.0 [facility] [place] Culture, urineOrdered By: Filippo Islas on 08-03-2023 Bacteria identified Cx Nom (U) Culture exhibits no growth. [facility] [place] Determination of erythrocyte mean corpuscular volume (MCV)Ordered By: Anton Islas on 04-12-2023 MCV (RBC) [Entitic vol] 92.2 fL 81-99 [facility] [place] HEP B SURF AG SCRNon 023 HBV surface Ag Ql (S) Non-Reactive [facility] HEPATITIS C ANTIBODY IA WITH CONFIRMATIONon 04-12-2023 HCV Ab Ql (S) Negative Negative [facility] HIV 1 and HIV-2 antibody ass ay with HIV-1 p24 antigen detectionOrdered By: Anton Islas on 04-12-2023 HIV 1+2 Ab+HIV1 p24 Ag IA Ql Non-Reactive [facility] [place] Laboratory - Hematology and Cell countsOrdered By: Anton Islas on 04-12-2023 Erythrocyte distribution width (RBC) [Entitic vol] 42.6 fL 35.1-43.9 [facility] [place] Erythrocyte distribution width (RBC) [Ratio] 12.6 % 11.6-14.6 [facility] [place] Immature granulocytes/100 WBC (Bld) 0.400 % 0.0-0.9 [facility] [place] Comment on above: IG% - Immature Granu locytes (promyelocytes, myelocytes and metamyelocytes) > 1% indicates that a LEFT SHIFT is Present. MCH (RBC) [Entitic mass] 31.9 pg 27.0-32.0 [facility] [place] Nucleated RBC/100 WBC (Bld) [Ratio] 0 % 0-5 [facility] [place] MCHC Auto (RBC) [Mass/Vol]Or dered By: Anton Islas on 04-12-2023 MCHC (RBC) [Mass/Vol] 34.6 g/dL 32-36 [facility] [place] No Panel InformationOrdered By: Anton Islas on 04-12-2023 Hepatitis B Surface Antigen Non-Reactive Nonreactive [facility] [place] Hepatitis C Antibody Non-Reactive Nonreactive [facility] Comment on above: Non Reactive: < 0.8 Equivocal: >/= 0.8 to < 1.0 Reactive: >/= 1.0The CDC recommends that a reactive/equivocal HCV antibody result be followed up by the HCV Nucleic Acid Amplificationtest (750760) Rubella IgG Antibody Reactive Nonreactive [facility] Comment on above: Antibody Results Int erpretation of Immune Status Non Reactive Presumed Non-Immune Equivocal Equivocal Reactive Presumed Immune Platelets bldOrdered By: Gustavo lissett Roshan on 04-12-2023 Platelets (Bld) [#/Vol] 297 10*3/uL [facility] [place] RUBELLA IGG ABon 04-12-2023 Rubella IgG, Qual Positive Positive [facility] Serum Treponema species anti body detectionOrdered By: Anton Islas on 04-12-2023 Treponema sp Ab Ql (S) Non-Reactive [facility] [place] Serum Varicella zoster virus IgG antibody assay by immunoassay (units/volume)Ordered By: Anton Islas on 04-12-2023 VZV IgG IA Qn (S) 1191 index Immune >165 [facility] Comment on above: Negative <135 Equivo alice 135 - 165 Positive >165A positive result generally indicates exposure to thepathogen or administration of specific immunoglobulins,but it is not indication of active infection or stageof disease.Performed at: [facility] Director: Mason Sheldon PhD, Phone: [phone] TYPE + SCREEN (EXTERNAL LAB) on 04-12-2023 ABO/RH(D) (EXTERNAL) Positive [facility] Laboratory - Cytologyon 03-10 Cytology report Cyto stain.thin prep Doc (Cvx/Vag) [employer] [address] [employer] Phone: MUTUAL FUND ACCOUNTANT - Office Visiton 03-10 MUTUAL FUND ACCOUNTANT - Office Visit Diagnoses/Problems Assessed Encounter for Papanicolaou smear of cervix (V76.2) (Z12.4) 02/2022 [place] LGSIL. EMB NEg 06/27/2021 J LUIS, HPV+ . [place] 08/02 2017 ascus hpv+ 01/2020LSGIL [place] DOUGLAS I 02/2020 Women's annual routine gynecological examination (V72.31) (Z01.419) Orders Renew: 09/29 1-20 MG-MCG Oral Tablet; TAKE 1 TABLET DAILY DIRECTED PAP RN SOCIAL SERVICES, Cytology; Status:In Progress - Specimen/Data Collected,Retrospective Authorization; Done: [id number] Last Menstrual Period (LMP): : 02/01/2023 PAP - Site : CERVICAL Cytology Order : ThinPrep PAP, Screening, HPV CoTest - Include Genotyping Provider Impressions 1. Annual 2. Contraceptive counseling Patient informed that control pills can make the menstrual flow very light to the point where there is no menstrual flow. As long as she is taking the control pills regularly and she has a negative test, she can continue with the control pills. Follow-up in 1 year or as needed.. Chief Complaint Patient is here for her yearly exam and pap test. LMP: 02/01/2023. Patient does self breast exams and has no concerns at this time. History of Present IllnessPresents for annual exam. She voices no complaints and is doing well. Denies any bowel or bladder problems. Denies any breast problems. She is currently on control pills. 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 Review of Systems Review of Systems: Constitutional: No fever or chills Respiratory: No shortness of breath, or cough Cardiovascular: No chest pain or syncope Breasts: No breast pain, no masses, no nipple discharge Gastrointestinal: No nausea, vomiting, or diarrhea, no abdominal pain Genitourinary: No dysuria or frequency Gynecology: Negative except as noted in history of present illness All other: All other systems reviewed and negative for complaint Active Problems Problems Anxiety (300.00) (F41.9) Atypical glandular cells of undetermined significance (J LUIS) on cervical Pap smear (795.00) (R87.619) Chronic hypertension with superimposed preeclampsia (642.70) (O11.9) Contraception management (V25.9) (Z30.9) COVID-19 (079.89) (U07.1) Encounter for Papanicolaou smear of cervix (V76.2) (Z12.4) 02/2022 [place] LGSIL. EMB NEg 06/27/2021 J LUIS, HPV+ . [place] 08/02 2017 ascus hpv+ 01/2020LSGIL [place] DOUGLAS I 02/2020 Encounter for supervision of high risk in third trimester, antepartum (V23.9) (O09.93) Hypertension (401.9) (I10) Increased urinary frequency (788.41) (R35.0) Insulin controlled gestational diabetes mellitus (GDM) in third trimester (648.83) (O24.414) Migraines (346.90) (G43.909) Negative test (V72.41) (Z32.02) Obesity (BMI 30.0-34.9) (278.00) (E66.9) Pelvic floor dysfunction in female (618.83) (M62.89) exam (V24.2) (Z39.2) Screening for STDs (sexually transmitted diseases) (V74.5) (Z11.3) Viral URI with cough (465.9) (J06.9) Women's annual routine gynecological examination (V72.31) (Z01.419) Past Medical History Problems Encounter for Papanicolaou smear of cervix (V76.2) (Z12.4) 02/2022 [place] LGSIL. EMB NEg 06/27/2021 J LUIS, HPV+ . [place] 08/02 2017 ascus hpv+ 01/2020LSGIL [place] DOUGLAS I 02/2020 History of HPV infection (V12.09) (Z86.19) History of Menstruation Onset age 11 years History of NVD (normal vaginal delivery) (650) (O80) 12/27/21 39 WEEKS MALE 5LBS 15OZ Surgical History Problems History of Anterior cruciate ligament repair 2018 History of Birney tooth extraction Family History Mother Family history of hypertension (V17.49) (Z82.49) Family history of thyroid disease (V18.19) (Z83.49) Father Family history of hypertension (V17.49) (Z82.49) Grandfather Family history of hypertension (V17.49) (Z82.49) Family history of myocardial infarction (V17.3) (Z82.49) Social History Problems Consumes alcohol occasionally (V49.89) (Z78.9) History of marijuana use (305.23) (F12.91) Tobacco use (305.1) (Z72.0) 6 per day Allergies Medication No Known Drug Allergies Recorded By: Rebekah Brown; 05/27/2021 2:43:09 PM Current Meds Medication NameInstruction 09/29 1-20 MG-MCG Oral TabletTAKE 1 TABLET DAILY DIRECTED. Vitamin 27-0.8 MG TABS Sertraline HCl - 25 MG Oral TabletTAKE 1 TABLET DAILY DIRECTED. Vitals Vital Signs Recorded: [id number] 02:25PM Bubrxkey990 Fwreukxle61 Height5 ft 4 in Ycscub60.1 kg BMI Jqljowdlno84.42 kg/m2 BSA Calculated1.81 Tobacco Useb) No PHQ-2 #1. Over the last 2 weeks have you felt down, depressed or hopeless? (If yes, answer PHQ-9 below)No PHQ-2 #2. Over the last 2 weeks have you felt little interest or pleasure in doing things? (If yes, answer PHQ-9 below)No Falls Screening (Age 18+)a) No falls within the last year [id number] Physical Exam PHYSICAL EXAMINATION: Well-developed, well nourished, in no acute (more content not included)... Normal [facility] Tobacco Screening.on Adult depression screening assessment No [employer] Phone: Fall risk assessment a) No falls within the last year [employer] Phone: Last menstrual period start date 01Feb2023 [employer] Work Phone: Tobacco use status CPHS b) No [employer] Phone: CBC W Auto Differential pane l (Bld)on 11-13-2022 Basophils (Bld) [#/Vol] 0.08 10*3/uL <0.11 k/uL [facility] Basophils/100 WBC (Bld) 0.9 % [facility] Differential cell count method Nom (Bld) Auto [facility] Eosinophils (Bld) [#/Vol] 0.26 10*3/uL <0.46 k/uL [facility] Eosinophils/100 WBC (Bld) 2.8 % [facility] Erythrocyte distribution width (RBC) [Ratio] 12.1 % 11.5 - 15.0 % [facility] Hematocrit (Bld) [Volume fraction] 51.3 % High 36.0 - 46.0 % [facility] Hemoglobin (Bld) [Mass/Vol] 17.5 g/dL High 11.5 - 15.5 g/dL [facility] Immature granulocytes (Bld) [#/Vol] 0.03 10*3/uL <0.10 k/uL [facility] Immature granulocytes/100 WBC (Bld) 0.3 % [facility] Lymphocytes (Bld) [#/Vol] 1.93 10*3/uL 1.00 - 4.00 k/uL [facility] Lymphocytes/100 WBC (Bld) 21.0 % [facility] MCH (RBC) [Entitic mass] 31.3 pg 26.0 - 34.0 pg [facility] MCHC (RBC) [Mass/Vol] 34.1 g/dL 30.5 - 36.0 g/dL [facility] MCV (RBC) [Entitic vol] 91.6 fL 80.0 - 100.0 fL [facility] Monocytes (Bld) [#/Vol] 0.83 10*3/uL <0.87 k/uL [facility] Monocytes/100 WBC (Bld) 9.0 % [facility] Neutrophils (Bld) [#/Vol] 6.07 10*3/uL 1.45 - 7.50 k/uL [facility] Neutrophils/100 WBC (Bld) 66.0 % [facility] Nucleated RBC (Bld) [#/Vol] <0.01 k/uL [facility] Nucleated RBC/100 WBC (Bld) [Ratio] 0.0 /100 WBC [facility] Platelet mean volume (Bld) [Entitic vol] 10.2 fL 9.0 - 12.7 fL [facility] Platelets (Bld) [#/Vol] 315 10*3/uL 150 - 400 k/uL [facility] RBC (Bld) [#/Vol] 5.60 10*6/uL High 3.90 - 5.2 0 m/uL [facility] WBC (Bld) [#/Vol] 9.20 10*3/uL 3.70 - 11. 00 k/uL [facility] Comprehensive metabolic 2000 panelon 11-13-2022 Albumin [Mass/Vol] 4.2 g/dL 3.2 - 5.0 g/dL [facility] ALP [Catalytic activity/Vol] 72 U/L 45 - 117 U/L [facility] ALT [Catalytic activity/Vol] 37 U/L 13 - 61 U/L [facility] Anion gap [Moles/Vol] 8 mmol/L 5 - 16 mmol/L [facility] AST [Catalytic activity/Vol] 51 U/L High 8 - 34 U/L [facility] Bilirubin [Mass/Vol] 0.3 mg/dL 0.2 - 1 .0 mg/dL [facility] Calcium [Mass/Vol] 9.3 mg/dL 8.5 - 10. 5 mg/dL [facility] Chloride [Moles/Vol] 111 mmol/L High 98 - 10 7 mmol/L [facility] CO2 [Moles/Vol] 21 mmol/L 21 - 32 mmol/L [facility] Creatinine [Mass/Vol] 0.76 mg/dL 0.51 - 0.95 mg/dL [facility] Estimated Glomerular Filtration Rate 108 mL/min/1.73m >=60 mL/min/1.73m [facility] Glucose [Mass/Vol] 111 mg/dL High 70 - 100 mg/dL [facility] Potassium [Moles/Vol] 4.4 mmol/L 3.5 - 5.1 mmol/L [facility] Protein [Mass/Vol] 7.4 g/dL 6.0 - 8.5 g/dL [facility] Sodium [Moles/Vol] 140 mmol/L 136 - 145 mmol/L [facility] Urea nitrogen [Mass/Vol] 9 mg/dL 7 - 26 mg/dL [facility] Lipid 1996 panelon Cholesterol [Mass/Vol] 195 mg/dL 0 - 199 mg/dL [facility] Cholesterol in HDL [Mass/Vol] 60 mg/dL >40 mg/dL [facility] Cholesterol in LDL [Mass/Vol] 117 mg/dL 0 - 129 mg/dL [facility] Cholesterol in LDL/Cholesterol in HDL [Mass ratio] 1.95 {ratio} <2.54 [facility] Cholesterol in VLDL [Mass/Vol] 18 mg/dL <30 mg/dL [facility] Cholesterol non HDL [Mass/Vol] 135 mg/dL High <130 mg/dL [facility] Cholesterol.total/Ch olesterol in HDL [Mass ratio] 3.25 {ratio} <5.10 [facility] Fasting Time 11 hrs [facility] Triglyceride [Mass/Vol] 90 mg/dL 30 - 149 mg/dL [facility] IO HCG, Urine Test on 02-24-2022 HCG ( test) Ql (U) Negative [facility] Work Phone: LMPon 02-24-2022 Last menstrual period start date 10Feb2022 [facility]: No Panel Informationon 02-24 [facility] [employer] Work Phone: Hemoglobin A1Con 02-03-2022 Glucose [Mass/Vol] 100 mg/dL [facility] [employer] Work Phone: HbA1c (Bld) [Mass fraction] 5.1 % [facility] [employer] Work Phone: Comment on above: Diagnosis of Diabete s-Adults Non-Diabetic: < or = 5.6% Increased risk for developing diabetes: 5.7-6.4% Diagnostic of diabetes: > or = 6.5%. Monitoring of Diabetes Age (y) Therapeutic Goal (%) Adults: >18 <7.0 Pediatrics: 13-18 <7.5 7-12 <8.0 0- 6 7.5-8.5 [employer]. Diabetes Care 33(S1), Sep 2009. Cult, Urineon 01-20-2022 Bacteria identified Cx Nom (U) [facility] [employer] Work Phone: IO UA (automated w/o microsc opy)on 01-20-2022 Protein (U) [Mass/Vol] Negative [facility] Work Phone: IO UA (automated w/o microscopy) (+)small - 15 [facility] [employer] Work Phone: IO UA (automated w/o microscopy) Negative [facility] Work Phone: IO UA (automated w/o microscopy) Normal (0.2-1.0 mg/dl) [facility] [employer] Work Phone: IO UA (automated w/o microscopy) 5.5 1 [facility] [employer] Work Phone: IO UA (automated w/o microscopy) (+++)large - 80 [facility] Work Phone: IO UA (automated w/o microscopy) 1.010 [address] [facility] [address] Work Phone: IO UA (automated w/o microscopy) Clear [facility] [address] Work Phone: IO UA (automated w/o microscopy) Yellow [facility] [address] Work Phone: Daily Progress Note - OB-Pos t-partumon 12-30-2021 Daily Progress Note - [id number] Current Stage: Stage: Post- Subjective Data: Post : Ambulate: Yes Flatus: Yes Tolerate Diet: Yes Lochia: Light : Patient doing well. Pain controlled. Working on breast-feeding. Denies any headaches. Patient notes vision changes started decreased from yesterday. Patient notes no new ones. Patient denies any fevers chills chest pain shortness of breath or calf pain Objective Information: Objective Information: T PRBPMAPSpO2 [id number]% Date/Time12/30 7: 7: 7: 7: 7: 7:15 Range(36.4C - 36.9C ) (55 - 85 ) (14 - 16 ) (129 - 144 )/ (60 - 92 ) (86 - 107 ) (97% - 99% ) Highest temp of 36.9 C was recorded at 12/30 4:10 Pain reported at 12/30 7:15: 3 = Mild ---- Intake and Output ----- Mn/Dy/Year TimeIntakeOutputNet Dec 29, 2021 2:00 pm000 Physical Exam: Constitutional: alert, oriented Obstetric: Uterus firm below umbilicus Eyes: Bilateral conjunctival hemorrhages Respiratory/Thorax: Clear to auscultation bilaterally Cardiovascular: Regular rate and rhythm Gastrointestinal: Soft positive bowel sounds appropriate tender nondistended. Uterus firm below umbilicus Extremities: Negative calf pain Skin: no rashes or lesions Assessment and Plan: Assessment: 1)PPD#3-milestones of discharge. Discussed doing a circumcision now versus to as an outpatient. Patient interested as outpatient as she is anticipating would like to go home today 2) DVT prophylaxis-SCDs ambulation Lovenox 3) chronic hypertension with superimposed preeclampsia-blood pressure stable at the 72-hour plus armando. Plan for short interval follow-up on Sunday at 1 PM. Vision changes improved since yesterday reviewed precautions return. Patient already has home blood pressure cuff. All questions answered 4) GDM A2-plan for 6-week follow-up Electronic Signatures: Jose Carlos Petty) (Signed 30-Dec-2021 08:11) Authored: Current Stage, Subjective Data, Objective Data, Assessment and Plan, Note Completion Last Updated: 30-Dec-2021 08:11 by Jose Carlos Petty) [facility] Discharge [id number] Discharge Profile2 Discharge Orders: Anticipated Discharge Date: Anticipated Discharge [id number] DNAR: Code Status at Discharge: Full Code : Call 911: Call 911 or go to the nearest emergency room RIGHT AWAY if you have:. Chest pain or pressure; heart racing. Shortness of breath or difficulty breathing. Seizures; change in alertness or confusion. Thoughts of hurting yourself or someone else. Call Provider: Call your OB Provider if you have: (If you can't reach your healthcare provider, call 911 or go to an emergency room). Heavy bleeding. Soaking a large pad every hour or passing large clots. Incision that is not healing, is red or more painful, or has pus (if you have an incision). Red or swollen leg that is painful or warm to touch. Temperature of 100.4 degrees F or higher; bad-smelling vaginal blood or discharge. Headache that does not get better, even after taking medicine; bad headache with vision changes; pain in the upper right area of your belly. Signs of Depression. Examples include: 1. Persistent sadness 2. Frequent crying 3. Sleep problems 4. Excessive worrying 5. Feeling unable to cope. Red or swollen breast that is painful or warm to touch. Pain, burning, or difficulty with emptying your bladder. Severe constipation (more than 5 days). Trust your instincts. Always get medical care if you are not feeling well or have questions or concerns.. Activity: Return to normal activity as tolerated. Patient Instructions: Pelvic Rest: DO NOT place anything in vagina until cleared by OB Provider. Diet: Regular. Follow-Up - OB Provider: Physician/Dept/ServiceOB Provider DR. Petty Scheduled Date/[id number] 13:00 Provider FINAL REVIEW of Orders: Final Review: Final Review of Medication Reconciliation and Orders Completedby Physician Reviewing ProviderJose Carlos Petty DO at 30-Dec-2021 08:06:23 Other Clinician Instructions: Other Instructions: Other Clinician InstructionsAny woman can have complications after the of a baby including a blood clot, a heart problem, hypertensive disorder/eclampsia, depression, hemorrhage, or infection. Notify all providers of your delivery date up to one year after .* Call 911 or go to nearest emergency room right away if you have: PAIN or pressure in chest; OBSTRUCTED breathing or shortness of breath; SEIZURES; THOUGHTS of hurting yourself or your baby; heart palpitations/racing; change in alertness/confusion. Call your provider if you have: BLEEDING, soaking through a pad/hour, or blood clots the size of an egg or bigger; INCISION (episiotomy stitches or site) that is not healing (increased redness, pain, drainage/pus, or separation); RED or swollen leg/calf that is painful or warm to touch, especially in one leg more than the other; TEMPERATURE of 100.4 F or higher or chills; HEADACHE that does not get better with medicine, rest or hydration, or bad headache with vision changes like spots or flashing lights; increased swelling of face, hands or legs; severe cramps or upper right belly pain; red or swollen breast that is painful or warm to touch; an unusual, foul odor from your vaginal discharge; pain, burning, or difficulty during urination; severe constipation (more than 5 days); feelings of depression (such as depressed mood, loss of interest in enjoyable things, unable to care for yourself, trouble sleeping, lack of appetite, or feeling worthless). If you cant reach your provider or symptoms worsen, call 911 or go to nearest emergency room. *[facility] from [facility]: [facility] Your Life: Get Care for These POST- Warning Signs On Behalf on the [facility] Maternity Staff, Congratulations on your . It was our pleasure to take care of you and your during your stay. We hope during this stay that we have exceeded all of your expectations. We will be calling you in a few days to check up on you and your infant. Please allow us to speak with you and please ask questions or let us know if you have any concerns. If you need any assistance after you go home please give us a call. Also, please join our [facility] Support Group which meets the sunday of every month at 10 am in the OB unit. No need to register. If you have any questions please call us at [phone]. Again, Congratulations! Warmest Regards, [facility]'s Maternity Staff Electronic Signatures: Jose Carlos Petty) (Signed 30-Dec-2021 08:06) Authored: Discharge Orders, , Provider FINAL REVIEW of Orders, Gold Form - Distribution Sales Manager Summary Rebekah Rascon) (Signed 30-Dec-2021 10:59) Authored: Discharge Orders, Other Clinician Instructions Last Updated: 30-Dec-2021 10:59 by Rebekah Rascon (RN) [facility] Order Reconciliationon 12-30 Order Reconciliation Page 1 Discharge Reconciliation Document Reconciliation Type: Discharge requested on behalf of Jose Carlos Petty (Physician) done by Jose Carlos Petty () Discharge - Reconciliation: 30-Dec-2021 08:13 by: Jose Carlos Petty () Home Medications EnteredHOME MEDICATIONS AT DISCHARGE DateReconciliation Comment/ Additional Information aspirin 81 mg oral tablet 2 tab(s) orally once a day (at bedtime) 06-Dec-2021 13:21 Discontinued; Discontinue from ORM aspirin 81 mg oral tablet is not required HumaLOG KwikPen 100 units/mL injectable solution 4 unit(s) subcutaneous once a day before supper 26-Dec-2021 08:28 Discontinued; Discontinue from ORM HumaLOG KwikPen 100 units/mL injectable solution is not required NovoLIN N FlexPen 100 units/mL subcutaneous suspension 6 unit(s) subcutaneous once a day (at bedtime) 26-Dec-2021 08:29 Discontinued; Discontinue from ORM NovoLIN N FlexPen 100 units/mL subcutaneous suspension is not required AD oral tablet 1 tab(s) orally once a day 26-Dec-2021 08:22 AD oral tablet 1 tab(s) orally once a day 26-Dec-2021 08:22 AD oral tablet is continued as AD oral tablet Tylenol 500 mg oral tablet 2 tab(s) orally every 6 hours 13-Dec-2021 14:31 Tylenol 500 mg oral tablet 2 tab(s) orally every 6 hours 13-Dec-2021 14:31 Tylenol 500 mg oral tablet is continued as Tylenol 500 mg oral tablet Zoloft 25 mg oral tablet 1 tab(s) orally once a day 09-Nov-2021 15:26 Zoloft 25 mg oral tablet 1 tab(s) orally once a day 09-Nov-2021 15:26 Zoloft 25 mg oral tablet is continued as Zoloft 25 mg oral tablet Current OrdersDateHOME MEDICATIONS AT DISCHARGE DateReconciliation Comment/ Additional Information Acetaminophen Tablet (TYLENOL)DOSE = 975 mg Oral Every 6 HoursClinician Notes: Give with Ibuprofen. 27-Dec-2021 03:15 Acetaminophen is not required Benzocaine 20% - Menthol 0.5% Topical Custer (DERMOPLAST)DOSE = 1 application(s) Topical 4 Times a Day, PRN DiscomfortApply to Perianal Area 27-Dec-2021 03:15 Benzocaine 20% - Menthol 0.5% Topical is not required Bisacodyl Rectal Suppository (DULCOLAX)DOSE = 10 mg Rectal Daily, PRN Severe constipation 27-Dec-2021 03:15 Bisacodyl Rectal is not required Calcium Gluconate Injectable DOSE = 1 gram(s) IntraVenous Push Once, PRN Magnesium toxicityClinician Notes: IV push over 5 minutes 27-Dec-2021 04:16 Calcium Gluconate Injectable is not required Carboprost IntraMuscular (HEMABATE)DOSE = 250 microgram(s) IntraMuscular Once, PRN post bleeding in non-asthmatic patientClinician Notes: Consult provider prior to administration. 27-Dec-2021 03:15 Carboprost IntraMuscular is not required diphenhydrAMINE Capsule (BENADRYL)DOSE = 25 mg Oral Every 6 Hours, PRN Itching 27-Dec-2021 03:15 diphenhydrAMINE is not required Docusate Capsule (COLACE)DOSE = 100 mg Oral 2 Times a Day, PRN Stool Softening 27-Dec-2021 03:15 Docusate is not required fentaNYL 2 mcg/mL - Bupivacaine 0.0625% PCEA DEMAND/ PCEA Dose = 5BASAL/ Continuous Rate = 8One Hour Dose Limit = 68 mL/hr mL per hourNotes from Pharmacy: [Fentanyl 2 mcg/mL - Bupivacaine 0.0625%] 26-Dec-2021 13:44 fentaNYL 2 mcg/mL - Bupivacaine 0.0625% PCEA is not required hydrALAZINE (APRESOLINE) Injectable DOSE = 5 mg IntraVenous Push Once, PRN Acute-onset, severe HTN w/out known, suspected CADClinician Notes: Consult provider prior to administration. Push over more than 2 minutes. Systolic greater than or equal to 16 27-Dec-2021 03:15 hydrALAZINE (APRESOLINE) Injectable is not required Ibuprofen Tablet (ADVIL, MOTRIN)DOSE = 600 mg Oral Every 6 HoursClinician Notes: Give with Acetaminophen. 27-Dec-2021 03:15 ibuprofen 600 mg oral tablet 1 tab(s) orally every 6 hours as needed pain 30-Dec-2021 08:13 Prescription is created for ibuprofen 600 mg oral tablet Lactated Ringers Infusion IV Bag Volume = 1,000 mL Run at: 125 mL/hr IntraVenous 27-Dec-2021 03:15 Lactated Ringers Infusion is not required Lanolin Topical Ointment (LANSINOH)DOSE = 1 application(s) Topical Every 24 Hours, PRN Dry SkinApply to NippleClinician Notes: After and PRN 27-Dec-2021 03:15 Lanolin Topical is not required Loperamide Capsule (IMODIUM)DOSE = 4 mg Oral Every 2 Hours, PRN If Carboprost given or loose stoolsClinician Notes: Max dose of 16mg / 24 hours 27-Dec-2021 03:15 Loperamide is not required Magnesium Hydroxide -Al Hydrox -Simethicone Oral Liquid (MAALOX)DOSE = 30 mL Oral Every 4 Hours, PRN Indigestion 27-Dec-2021 03:15 Magnesium Hydroxide -Al Hydrox -Simethicone Oral Liquid is not required Magnesium Hydroxide Oral Liquid CONCENTRATE (MILK OF MAGNESIA)DOSE = 10 mL Oral Every 24 Hours, PRN Constipation 27-Dec-2021 03:15 Magnesium Hydroxide Oral Liquid CONCENTRATE is not required Measles -Mumps -Rubella (Live) MMR Vaccine DOSE = 0.5 mL SubCutaneous Once, PRN if patient screen is non- immune or equivocalClinician Notes: administer if patient screen is non- i (more content not included)... Normal [facility] Clinical Event Note-Labor No [place] 12-29-2021 Clinical Event Note-Labor Note Clinical Event: Clinical Event Note: TopicLabor Note Details I was called with concern of worsening neurological changes and vision changes with patient with chtn with/ superimposed preeclampsia. I came in to evaluate. At bedside patient clinically seems to be doing overall well. Patient notes that during rounding this morning she had an episode that was transient less than a minute that she had an episode of spotty vision in both eyes when she was looking outside near the sun. She said that resolved and she really had had no further episode when around this morning. Now patient notes she really had 2 episodes not multiple episodes of this transient less than a minute bilateral spotty vision more in upper [place] woman with near very bright light. Patient notes that she was in the bathroom in the mirror with a bright light as well as if she looked really directly into the lights in the hospital. Patient notes no headaches. Patient notes she had a transient spot on her left eye prior to that since resolved since delivery. Patient know she is previously seen by Ortho and was worked up and sent everything was benign. 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 Patient note that resolved on its own with time and eyedrops. Vital signs stable Gen:NAD HEENT: bilateral conjuctival hemorrhages noted. EOMI intact. Bilateral accomidation intact. No nystagmus. CV:RRR Lungs CTA b/l Abd:soft nondistended A/p 1)CHTN with/ SI severe preeclampsia- BS stable. He will evaluate what was worsening vision changes but overall seems to be 2 episodes of spotty vision which was very short lived, less than a few minutes. Patient does acknowledge after pushing a little harder that these were after episodes of crying. Patient will google that this symptoms is worried about retinal detachment. I had the emergency room doctor DR. Cr come up ultrasound arising with concern for potential retinal detachment he noted no acute findings on US. 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 Overall it seems to be benign in my opinion given the fact that these were provoked after episodes of crying or staring near/close to bright lights. They are transient and she is not currently having. No retinal hemorrhage appreciated by ED physician on eval. Given the chronic hypertension and preeclampsia we will touch base with MFM to see if any further work-up is indicated. D/w Dr. Tay, [facility]. Reviewed her complaints her history and her exam and the ED doctor's ultrasound. Shared decision was to monitor potentially with Ortho outpatient follow-up. Discussed if worsening symptoms would need to reevaluate and call. Discussed patient voiced understanding agreed to proceed Electronic Signatures: Jose Carlos Petty () (Signed 29-Dec-2021 20:37) Authored: Clinical Event Note Last Updated: 29-Dec-2021 20:37 by Jose Carlos Petty () [facility] Daily Progress Note - OB-Pos t-partumon 12-29-2021 Daily Progress Note - CQ-Amgb-pocyqn Current Stage: Stage: Post- Subjective Data: Post : Ambulate: Yes Flatus: Yes Tolerate Diet: Yes Lochia: Light : Patient doing okay. Patient emotionally distraught as her infant is now under the bili lights and she is having to stay another day. Patient notes rare headache yesterday but otherwise fine today. Patient breast-feeding. Denies any fevers chills chest pain shortness of breath or calf pain. Objective Information: Objective Information: T PRBPMAPSpO2 [id number]% Date/Time12/29 5:154 11: 5:144 11: 11: 11:01 Range(36.5C - 37C ) (62 - 86 ) (14 - 16 ) (117 - 144 )/ (55 - 82 ) (79 - 105 ) (93% - 99% ) Highest temp of 37 C was recorded at 12/28 16:53 Pain reported at 12/29 6:00: 1 = Mild ---- Intake and Output ----- Mn/Dy/Year TimeIntakeOutputNet Dec 29, 2021 6:00 [id number] Dec 28, 2021 2:00 [id number] The Intake and Output Totals for the last 24 hours are: IntakeOutputNet [id number] Physical Exam: Constitutional: alert, oriented Obstetric: Uterus firm below umbilicus Respiratory/Thorax: Clear to auscultation bilateral Cardiovascular: Regular rate and rhythm Gastrointestinal: Soft positive bowel sound appropriate tender nondistended Extremities: Negative calf pain Skin: no rashes or lesions Assessment and Plan: Comorbidity: ComorbidtyOther Assessment: 1)PPD#2-doing well. Working on . Hold off circumcising as its under lights. 2) chronic hypertension with severe preeclampsia-status post 24 hours of magnesium. Patient's blood pressures are controlled in the 130s 140s not on medication. Plan to keep her for the full 72 hours which will be tomorrow morning. We will continue monitor blood pressures. Patient is a blood pressure cuff at home. Precautions reviewed return. 3) DVT prophylaxis-SCDs ambulation Electronic Signatures: Jose Carlos Petty) (Signed 29-Dec-2021 11:56) Authored: Current Stage, Subjective Data, Objective Data, Assessment and Plan, Note Completion Last Updated: 29-Dec-2021 11:56 by Jose Carlos Petty () Normal [facility] CBCon 12-28-2021 Erythrocyte distribution width (RBC) [Ratio] 13.7 % Normal 11.5 - 14.5 [facility] Comment on above: Performed By: #### C BC #### [address] [address] Hematocrit (Bld) [Volume fraction] 36.6 % Normal 36.0 - 46.0 [facility] Comment on above: Performed By: #### C BC #### [address] [address] Hemoglobin (Bld) [Mass/Vol] 12.3 g/dL Normal 12.0 - 16.0 [facility] Comment on above: Performed By: #### C BC #### [address] [address] MCHC (RBC) [Mass/Vol] 33.6 g/dL Normal 32.0 - 36.0 [facility] Comment on above: Performed By: #### C BC #### [address] [address] MCV (RBC) [Entitic vol] 92 fL Normal 80 - 100 [facility] Comment on above: Performed By: #### C BC #### [address] [address] Platelets (Bld) [#/Vol] 251 10*3/uL Normal 150 - 450 [facility] Comment on above: Performed By: #### C BC #### [address] [address] RBC 3.98 x10E12/L Low 4.00 - 5.20 [facility] Comment on above: Performed By: #### C BC #### [address] [address] WBC (Bld) [#/Vol] 20.4 10*3/uL High 4.4 - 11.3 [facility] Comment on above: Performed By: #### C BC #### [address] [address] Daily Progress Note - OB-Pos t-partumon 12-28-2021 Daily Progress Note - MW-Hknu-anednn Current Stage: Stage: Post- Subjective Data: Post : Ambulate: Yes Flatus: Yes Tolerate Diet: Yes Lochia: Moderate : Patient doing better with magnesium off. Denies any fevers chills chest pain shortness of breath. Denies any headache vision changes. Working on breast-feeding. Objective Information: Objective Information: T PRBPMAPSpO2 [id number]% Date/Time12/28 0: 4: 1: 4: 4: 3:52 Range(35.8C - 36.7C ) (65 - 168 ) (14 - 22 ) (90 - 164 )/ (49 - 85 ) (66 - 113 ) (75% - 100% ) Pain reported at 12/28 0:51: 3 = Mild ---- Intake and Output ----- Mn/Dy/Year TimeIntakeOutputNet Dec 28, 2021 6:00 [id number] Dec 27, 2021 10:00 [id number] Dec 27, 2021 2:00 [id number] The Intake and Output Totals for the last 24 hours are: IntakeOutputNet [id number] Physical Exam: Constitutional: alert, oriented Obstetric: Uterus firm below umbilicus Eyes: pupils equal, sclerae clear Respiratory/Thorax: Clear to auscultation bilateral Cardiovascular: Regular rate rhythm Gastrointestinal: Soft positive bowel sounds minimally tender nondistended Extremities: Negative calf pain Skin: no rashes or lesions Recent Lab Results: Results: CBC: 12/28/2021 06:22 \ Hgb / \ 12.3 / WBC Plt 20.4 H 251 / Hct \ / 36.6 \ RBC: 3.98 L MCV: 92 Assessment and Plan: Comorbidity: ComorbidtyOther Assessment: 1)PPD#1-patient doing well. Pain controlled. Bleeding stable. Working on breast-feeding 2) chronic hypertension with superimposed preeclampsia-off magnesium sulfate. Blood pressure stable. Given the fact they are low normal we will hold off on p.o. agent and will monitor for the 48 to 72 hours inpatient 3) GDM A2-AMB GC pending 4) DVT prophylaxis-SCDs ambulation Electronic Signatures: Jose Carlos Petty) (Signed 28-Dec-2021 06:49) Authored: Current Stage, Subjective Data, Objective Data, Assessment and Plan, Note Completion Last Updated: 28-Dec-2021 06:49 by Jose Carlos Petty () Normal [facility] Laboratory - Hematology and Cell countson 12-28-2021 Erythrocyte distribution width (RBC) [Ratio] 13.7 % See Below [employer] Work Phone: Comment on above: Reference Range: 11. 5 - 14.5 Hematocrit (Bld) [Volume fraction] 36.6 % See Below [employer] Work Phone: Comment on above: Reference Range: 36. 0 - 46.0 Hemoglobin (Bld) [Mass/Vol] 12.3 g/dL See Below [employer] [facility] [employer] Work Phone: Comment on above: Reference Range: 12. 0 - 16.0 MCHC (RBC) [Mass/Vol] 33.6 g/dL See Below [employer] [facility] [employer] Work Phone: Comment on above: Reference Range: 32. 0 - 36.0 MCV (RBC) [Entitic vol] 92 fL 80 - 100 [employer] [facility] [employer] Work Phone: Platelets (Bld) [#/Vol] 251 10*3/uL 150 - 450 [employer] [facility] [employer] Work Phone: RBC (Bld) [#/Vol] 3.98 {x10E12/L} below low threshold See Below [employer] [facility] [employer] Work Phone: Comment on above: Reference Range: 4.0 0 - 5.20 WBC (Bld) [#/Vol] 20.4 10*3/uL above high threshold 4.4 - 11.3 [employer] [facility] [employer] Work Phone: CBCon 12-27-2021 Erythrocyte distribution width (RBC) [Ratio] 13.4 % Normal 11.5 - 14.5 [facility] Comment on above: Performed By: #### C BC #### [address] [address] Hematocrit (Bld) [Volume fraction] 43.3 % Normal 36.0 - 46.0 [facility] Comment on above: Performed By: #### C BC #### [address] [address] Hemoglobin (Bld) [Mass/Vol] 14.5 g/dL Normal 12.0 - 16.0 [facility] Comment on above: Performed By: #### C BC #### [address] [address] MCHC (RBC) [Mass/Vol] 33.5 g/dL Normal 32.0 - 36.0 [facility] Comment on above: Performed By: #### C BC #### [place] [id number] MCV (RBC) [Entitic vol] 91 fL Normal 80 - 100 [facility] Comment on above: Performed By: #### C BC #### [place] [id number] Platelets (Bld) [#/Vol] 241 10*3/uL Normal 150 - 450 [facility] Comment on above: Performed By: #### C BC #### [place] [id number] RBC 4.73 x10E12/L Normal 4.00 - 5.20 [facility] Comment on above: Performed By: #### C BC #### [place] [id number] WBC (Bld) [#/Vol] 35.4 10*3/uL High 4.4 - 11.3 [facility] Comment on above: Performed By: #### C BC #### [place] [address] COMPREHENSIVE PANELon 2021 Albumin [Mass/Vol] 3.1 g/dL Low 3.4 - 5.0 [facility] Comment on above: Performed By: #### C BC #### [place] [address] ALP [Catalytic activity/Vol] 146 U/L High 33 - 110 [facility] Comment on above: Performed By: #### C BC #### [place] [id number] ALT [Catalytic activity/Vol] 8 U/L Normal 7 - 45 [facility] Comment on above: Result Comment: Clary ents treated with Sulfasalazine may generate falsely decreased results for ALT. Performed By: #### C BC #### [place] [address] Anion gap [Moles/Vol] 15 mmol/L Normal 10 - 20 [facility] Comment on above: Performed By: #### C BC #### [address] [address] AST [Catalytic activity/Vol] 27 U/L Normal 9 - 39 [facility] Comment on above: Performed By: #### C BC #### [address] [address] Bilirubin [Mass/Vol] 0.8 mg/dL Normal 0.0 - 1.2 [facility] Comment on above: Performed By: #### C BC #### [address] [address] Calcium [Mass/Vol] 8.5 mg/dL Low 8.6 - 10.3 [facility] Comment on above: Performed By: #### C BC #### [address] [address] Chloride [Moles/Vol] 106 mmol/L Normal 98 - 107 [facility] Comment on above: Performed By: #### C BC #### [address] [address] Creatinine [Mass/Vol] 0.73 mg/dL Normal 0.50 - 1.05 [facility] Comment on above: Performed By: #### C BC #### [address] [address] eGFR FEMALE >90 Normal >90 [facility] Comment on above: Result Comment: CALC ULATIONS OF ESTIMATED GFR ARE PERFORMED USING THE 2020 CKD-EPI STUDY REFIT EQUATION WITHOUT THE RACE VARIABLE FOR THE IDMS-TRACEABLE CREATININE METHODS. https://jasn.asnjournals.org/content/early//ASN.8080722 988 Performed By: #### C BC #### [address] [address] Glucose [Mass/Vol] 180 mg/dL High 74 - 99 [facility] Comment on above: Performed By: #### C BC #### [address] [address] HCO3 (Bld) [Moles/Vol] 16 mmol/L Low 21 - 32 [facility] Comment on above: Performed By: #### C BC #### [address] [address] Potassium [Moles/Vol] 3.9 mmol/L Normal 3.5 - 5.3 [facility] Comment on above: Performed By: #### C BC #### [address] [address] Protein [Mass/Vol] 5.5 g/dL Low 6.4 - 8.2 [facility] Comment on above: Performed By: #### C BC #### [address] [address] Sodium [Moles/Vol] 133 mmol/L Low 136 - 145 [facility] Comment on above: Performed By: #### C BC #### [address] [address] Urea nitrogen [Mass/Vol] 7 mg/dL Normal 6 - 23 [facility] Comment on above: Performed By: #### C BC #### [address] [address] Clinical Event Note-Labor No te-2119on 12-27-2021 Clinical Event Note-Labor Note-2119 Clinical Event: Clinical Event Note: TopicLabor Note-2119 Details Cx:/-1 per RN CaT II [place] Q2-4imn 1)IOL- Pt making change. Pit per protocol 2)cat II- rare decel. Mod elva, +Accels. interventions as needed 3)GBS-Neg 4)Pain-Epidural 5)CHTN-Bps stable 6)GDMA2-BGTs per protocol Electronic Signatures: Jose Carlos Petty) (Signed 27-Dec-2021 03:12) Authored: Clinical Event Note Last Updated: 27-Dec-2021 03:12 by Jose Carlos Petty () Normal [facility] Delivery Recordon 12-27-2021 Delivery Record Lab Tests/Results: Labs: Labs: Blood Typed Date: 24-Jun-2021 Blood Type: A positive Antibody Screen Results: negative Chlamydia Date: 24-Jun-2021 Chlamydia Results: negative Gonorrhea Date: 24-Jun-2021 Gonorrhea Results: negative Group B Strep Date: 06-Dec-2021 Strep Results: negative GTT - Extended (dd-mmm-yy): 29-Jun-2021 GTT - Extended - Fastin GTT - Extended - 1 hour: 222 GTT - Extended - 2 hour: 163 GTT - Extended - 3 hour: 91 HBsAG Date: 24-Jun-2021 HBsAG Results: negative Hemoglobin A1C (dd-mmm-yy): 30-Nov-2021 Hemoglobin A1C: 5.3 % Estimated Average Glucose: 105 HIV Date: 24-Jun-2021 HIV Results: negative Rubella Date: 24-Jun-2021 Rubella Results: immune Rubella Comments: Result Value POSITIVE Syphilis (mmm-ddyyy): 26-Dec-2021 Syphilis Results: negative Urine Spot (): 30-Nov-2021 Total Protein/Creatinine Ratio: 0.33 Delivery Information: Kodak A Delivery Information: Baby A Delivery: Rupture of Membranes date/[id number] 12:50 Amniotic Fluid Colorclear Delivery Typevaginal delivery Delivery Locationlabor and delivery Delivery Date/[id number] 02:21 Length of Time of ROM (rounded down to nearest hour)13 Sexmale Identification Band [id number] Electronic Transponder [id number] Weight (kg)2.69 kilogram(s) Delivery of Placenta (hh:mm)02:41 Baby A: Placenta disposaldiscarded 1 Min: Heart [place] than 100 beats/min Respiratory Rateweak, irregular Muscle Toneflaccid Reflex Irritabilitygrimace Colorbody pink, extremities blue 1 Minute Score, Baby A5 Apgars assessed byKZeinab Franco RN 5 Min: Heart [place] than 100 beats/min Respiratory Rategood, crying Muscle Tonesome flexion of extremities Reflex Irritabilitygrimace Colorbody pink, extremities blue 5 Minute Score, Baby A7 Apgars assessed byHieu Franco RN Resuscitation Efforts: Vigorous at Birthyes Resuscitation Effortstactile stimulation; bulb syringe Baby A: Transfer Baby A: Transfer toRemains with mother Delivery Team: Baby NurseKZeinab Franco RN Electronic Signatures: Maria Isabel LucianoRN) (Signed 27-Dec-2021 13:53) Authored: Delivery Information Haley Franco) (Signed 27-Dec-2021 03:37) Authored: Lab Tests/Results, Kodak Delivery Information Last Updated: 27-Dec-2021 13:53 by Maria Isabel Luciano (RN) Normal [facility] GLUCOSE-POCTon 12-27-2021 Glucose [Mass/Vol] 116 mg/dL High 74 - 99 [facility] Comment on above: Performed By: #### C BC #### [address] [address] Glucose [Mass/Vol] 138 mg/dL High 74 - 99 [facility] Comment on above: Performed By: #### C BC #### [address] [address] Glucose [Mass/Vol] 74 mg/dL Normal 74 - 99 [facility] Comment on above: Performed By: #### G RICHIE #### [address] [address] Laboratory - Chemistry and C hemistry - challengeon 12-27-2021 Glucose [Mass/Vol] 116 mg/dL above high threshold 74 - 99 [facility] [employer] Work Phone: Glucose [Mass/Vol] 138 mg/dL above high threshold 74 - 99 [facility] [employer] Work Phone: Albumin BCP dye [Mass/Vol] 3.1 g/dL below low threshold 3.4 - 5.0 [facility] [employer] Work Phone: ALP [Catalytic activity/Vol] 146 U/L above high threshold 33 - 110 [facility] [employer] Work Phone: ALT With P-5'-P [Catalytic activity/Vol] 8 U/L 7 - 45 [facility] [employer] Work Phone: Comment on above: Patients treated wit h Sulfasalazine may generate falsely decreased results for ALT. Anion gap [Moles/Vol] 15 mmol/L 10 - 20 [facility] Work Phone: AST With P-5'-P [Catalytic activity/Vol] 27 U/L 9 - 39 [employer] Work Phone: Bilirubin [Mass/Vol] 0.8 mg/dL 0.0 - 1.2 [facility] Work Phone: Calcium [Mass/Vol] 8.5 mg/dL below low threshold 8.6 - 10.3 [employer] Work Phone: [phone] Chloride [Moles/Vol] 106 mmol/L 98 - 107 [facility] Work Phone: CO2 [Moles/Vol] 16 mmol/L below low threshold 21 - 32 [facility] [employer] Work Phone: Creatinine [Mass/Vol] 0.73 mg/dL See Below [employer] [facility] [employer] Work Phone: Comment on above: Reference Range: 0.5 0 - 1.05 Glucose [Mass/Vol] 180 mg/dL above high threshold 74 - 99 [employer] Work Phone: Potassium [Moles/Vol] 3.9 mmol/L 3.5 - 5.3 [facility] [employer] Work Phone: Protein [Mass/Vol] 5.5 g/dL below low threshold 6.4 - 8.2 [employer] Work Phone: Sodium [Moles/Vol] 133 mmol/L below low threshold 136 - 145 [facility] [employer] Work Phone: Urea nitrogen [Mass/Vol] 7 mg/dL 6 - 23 [facility] [facility] [employer] Work Phone: Laboratory - Hematology and Cell countson 12-27-2021 Erythrocyte distribution width (RBC) [Ratio] 13.4 % See Below [employer] Work Phone: Comment on above: Reference Range: 11. 5 - 14.5 Hematocrit (Bld) [Volume fraction] 43.3 % See Below [employer] Work Phone: Comment on above: Reference Range: 36. 0 - 46.0 Hemoglobin (Bld) [Mass/Vol] 14.5 g/dL See Below [employer] Work Phone: Comment on above: Reference Range: 12. 0 - 16.0 MCHC (RBC) [Mass/Vol] 33.5 g/dL See Below [employer] Work Phone: Comment on above: Reference Range: 32. 0 - 36.0 MCV (RBC) [Entitic vol] 91 fL 80 - 100 [employer] Work Phone: Platelets (Bld) [#/Vol] 241 10*3/uL 150 - 450 [employer] Work Phone: RBC (Bld) [#/Vol] 4.73 {x10E12/L} See Below [employer] Work Phone: Comment on above: Reference Range: 4.0 0 - 5.20 WBC (Bld) [#/Vol] 35.4 10*3/uL above high threshold 4.4 - 11.3 [employer] Work Phone: No Panel Informationon 12-27 ORDER RECD [employer] Work Phone: >90 >90 [employer] Work Phone: Comment on above: CALCULATIONS OF LENORE MATED GFR ARE PERFORMED USING THE 2020 CKD-EPI STUDY REFIT EQUATION WITHOUT THE RACE VARIABLE FOR THE IDMS-TRACEABLE CREATININE METHODS.https://jasn.asnjournals.org/content//ASN .0971959533 REQUEST-LEUKOREDUCED RED GAGE LSon 12-27-2021 REQUEST-LEUKOREDUCED RED CELLS ORDER RECD Normal [facility] Comment on above: Performed By: #### O AWS ARCHITECT #### [id number] [place] [address] Admission Risk Screen - OBon 12-26-2021 Admission Risk Screen - OB Allergies: Allergies: No Known Allergies: Patient Verification: New W ID Band Applied in my Departmentyes Patient Identity Verified Bypatient ID Band FULL Name, include Middle, spelling matches patient's ID used for verificationyes ID Band Matches Patient ID used for Verficationyes ID Band MRN Matches EMR MRNyes Visitor Restriction: Coronavirus Visitor Restriction: Reasonable restrictions to in-person visitors will be observed due to current coronavirus pandemic. Travel History: COVID-19 Screening Completedno exposure or symptoms Travel or Exposure Past 30 DaysNO travel to International locations in the past 30 days Advance Directive: Advance Directive/DNRno Advance Directive Information Givenpatient/family declined [place] Fall Screen: History of falling (immediate or previous)no (0) Secondary Diagnosisno (0) Intravenous Therapy/ Heparin/Saline Lockyes (20) Gait/Transferringnormal/b edrest/wheelchair (0) Ambulatory Aidsnone/bedrest/nurse assist (0) Mental Statusoriented to own ability (0) Score: Low risk (<25). Moderate risk (25-44). High risk (>44).20 Ware InterventionsLOW INTERVENTIONS: *patient oriented to surroundings and call system, * patient/family falls education completed and documented, *patients fall status communicated during bedside handoff, *whiteboard updated, *mode of toileting discussed with patient, *bed in low position with brakes locked, *call light in reach, * non-skid footwear Functional screen: Functional Screen: In the recent/past 2-4 weeks, patient or family have noticeda significant change in speech or language Learning Assessment (Patient): Patient is Able to be Assessed for Learningyes Factors Influencing Readiness to Learnanxiety; pain Factors that Impact Ability to Learnnone Devices/Methods Used to Communicatenone Learning Preferencesskill demonstration; verbal instruction; written material Cultural Considerationsnone Developmental Considerationsnone Jainism Considerationsnone Learning Assessment (Other Learner): Other learner availableno Nutrition Risk Screen: Nutrition Risk Screenno indicators present Nutrition Consult needed this visitno Can Patient Participate in Room Serviceyes Pain Screen: Pain Control Method: Laborepidural Pain Control Method: Postpartummedication; rest Pain Scalenumerical 0-10 Pain Scale Educationteaching provided Acceptable Pain Level4 = Moderate Presence of Painno Expression of Pain (nonverbal)none Lifestyle Changes/Adaptations in Response to Painno change Chronic Painyes Chronic Back pain locationright, lower, bulging disc Factors that Relieve Painunder control at this time Skin - Leon Scale: Leon Scale (daily): Leon: Sensory Perception (response to environment)(4) no impairment Leon: Moisture (degree skin exposed to moisture)(3) occasionally moist Leon: Activity (ability to walk)(4) walks frequently Leon: Mobility (amount/control of body movement)(4) no limitation Leon: Nutrition (quality of food intake)(3) adequate Leon: Friction and Shear(3) no apparent problem Leon: Score21 Pressure Injury Present on Admissionno Spiritual Screen: Are there any cultural, spiritual, confucianism practices/values/needs that are important for us to knowno Depression Screen: During the past month, have you often been bothered by feeling down, depressed or hopelessno During the past month, have you often had little interest or pleasure in doing thingsno Have you had any thoughts of harming anyone elseno Depression CommentHistory of anxiety/depression [place] Suicide: Risk Screen Not Applicable/Able to Answerable to be screened In the Past Month: Have you wished you were or could go to sleep and not wake upno In the Past Month: Have you had any actual thoughts of killing yourselfno Lifetime: Have you ever done, started to do, or prepared to do anything to end your lifeno [place] Suicide Risknegative Family Violence Screen: Are you or have you been threatened or abused physically, emotionally, or sexually by anyoneno Do you feel UNSAFE going back to the place where you are livingno Clinical assessment: Are there any apparent signs of injuries/behaviors that could be related to abuse/neglectno Social Service Consult for abuse/neglect needed this visitno Vaccinations: Vaccination - Influenza Vaccination Screen: Is it flu season (between and December 08)No Vaccination - Pneumonia Vaccination Screen: Patient has received a previous pneumonia vaccine:no/unknown... Immunocompetent persons with underlying chronic conditions or reside in long winder tender care facilitiesnone of these conditions Persons with Functional or Anatomic Asplenianone of these conditions Immunocompromised Personsnone of these conditions Pneumonia vaccine NOT indicated due to:patient DOES NOT have a condition that in (more content not included)... Normal [facility] CBCon 12-26-2021 Erythrocyte distribution width (RBC) [Ratio] 13.5 % Normal 11.5 - 14.5 [facility] Comment on above: Performed By: #### C BC #### [address] [address] Hematocrit (Bld) [Volume fraction] 42.6 % Normal 36.0 - 46.0 [facility] Comment on above: Performed By: #### C BC #### [address] [address] Hemoglobin (Bld) [Mass/Vol] 14.9 g/dL Normal 12.0 - 16.0 [facility] Comment on above: Performed By: #### C BC #### [address] [address] MCHC (RBC) [Mass/Vol] 34.9 g/dL Normal 32.0 - 36.0 [facility] Comment on above: Performed By: #### C BC #### [address] [address] MCV (RBC) [Entitic vol] 91 fL Normal 80 - 100 [facility] Comment on above: Performed By: #### C BC #### [address] [address] Platelets (Bld) [#/Vol] 267 10*3/uL Normal 150 - 450 [facility] Comment on above: Performed By: #### C BC #### [address] [address] RBC 4.70 x10E12/L Normal 4.00 - 5.20 [facility] Comment on above: Performed By: #### C BC #### [address] [address] WBC (Bld) [#/Vol] 15.0 10*3/uL High 4.4 - 11.3 [facility] Comment on above: Performed By: #### C BC #### [place] [id number] COMPREHENSIVE PANELon 2021 Albumin [Mass/Vol] 3.2 g/dL Low 3.4 - 5.0 [facility] Comment on above: Performed By: #### C MP #### [address] [address] ALP [Catalytic activity/Vol] 148 U/L High 33 - 110 [facility] Comment on above: Performed By: #### C MP #### [address] [address] ALT [Catalytic activity/Vol] 6 U/L Low 7 - 45 [facility] Comment on above: Result Comment: Clary ents treated with Sulfasalazine may generate falsely decreased results for ALT. Performed By: #### C MP #### [id number] Anion gap [Moles/Vol] 14 mmol/L Normal 10 - 20 [facility] Comment on above: Performed By: #### C MP #### [address] [address] AST [Catalytic activity/Vol] 15 U/L Normal 9 - 39 [facility] Comment on above: Performed By: #### C MP #### [address] [address] Bilirubin [Mass/Vol] 0.4 mg/dL Normal 0.0 - 1.2 [facility] Comment on above: Performed By: #### C MP #### [address] [address] Calcium [Mass/Vol] 8.3 mg/dL Low 8.6 - 10.3 [facility] Comment on above: Performed By: #### C MP #### [address] [address] Chloride [Moles/Vol] 107 mmol/L Normal 98 - 107 [facility] Comment on above: Performed By: #### C MP #### [address] [address] Creatinine [Mass/Vol] 0.66 mg/dL Normal 0.50 - 1.05 [facility] Comment on above: Performed By: #### C MP #### [address] [address] eGFR FEMALE >90 Normal >90 [facility] Comment on above: Result Comment: CALC ULATIONS OF ESTIMATED GFR ARE PERFORMED USING THE 2020 CKD-EPI STUDY REFIT EQUATION WITHOUT THE RACE VARIABLE FOR THE IDMS-TRACEABLE CREATININE METHODS. https://jasn.asnjournals.org/content/early/ASN.8193426 988 Performed By: #### C MP #### [address] [address] Glucose [Mass/Vol] 167 mg/dL High 74 - 99 [facility] Comment on above: Performed By: #### C MP #### [address] [address] HCO3 (Bld) [Moles/Vol] 19 mmol/L Low 21 - 32 [facility] Comment on above: Performed By: #### C MP #### [address] [address] Potassium [Moles/Vol] 3.8 mmol/L Normal 3.5 - 5.3 [facility] Comment on above: Performed By: #### C MP #### [address] [address] Protein [Mass/Vol] 5.3 g/dL Low 6.4 - 8.2 [facility] Comment on above: Performed By: #### C MP #### [address] [address] Sodium [Moles/Vol] 136 mmol/L Normal 136 - 145 [facility] Comment on above: Performed By: #### C MP #### [address] [address] Urea nitrogen [Mass/Vol] 11 mg/dL Normal 6 - 23 [facility] Comment on above: Performed By: #### C MP #### [facility] [address] [place] [address] Clinical Event Note-Labor No [place] 12-26-2021 Clinical Event Note-Labor Note Clinical Event: Clinical Event Note: TopicLabor Note Details Cx:5/80/-3 ant Cat II TOco Q2-4min irregular 1)IOL- IUPC placed to help with pickgin up toco. PLan to start pit to mvus of 200. 2)Cat II0 rare variable. MOd elva, +ACcels. Interventions as needed 3)GBS_neg 4)Pain-EPidural in palce 5)cHTN-Bps stable 6)GDMA2-BGTs per protocol Electronic Signatures: Jose Carlos Petty) (Signed 26-Dec-2021 16:01) Authored: Clinical Event Note Last Updated: 26-Dec-2021 16:01 by Jose Carlos Petty () [facility] Clinical Event Note-Labor Note Clinical Event: Clinical Event Note: TopicLabor Note Details Cx:defer cat I [place] Q3-4mins irregular 1)IOL-S/p cytotec and bullock bulb. Pt SROM'ed clear. Will monitor 2)Cat I 3)CHTN-am labs stable. Asymptomaitc 4)GDMA2-BGTs per protocol 5)Pain-Epidural prn Electronic Signatures: Jose Carlos ePtty) (Signed 26-Dec-2021 13:21) Authored: Clinical Event Note Last Updated: 26-Dec-2021 13:21 by Jose Carlos Petty () [facility] Discharge Planning [id number] 12-26-2021 Discharge Planning Note2 Discharge Planning: Anticipated Discharge [id number] Discharge Planning Date and Time: 12/26/2021 Discharge Planning initiated on admission and formally reevaluated at this time. Patient independent with ambulation and ADL's prior to admission. Additional home going needs anticipated at this time: breast pump Handouts given to and reviewed with patient/caregiver per unit folder standards. Patient verbalizes understanding and denies any other discharge needs. Plan to continue to assess home going/discharge needs. Coordinate with interdisciplinary team as needed. Signature: Orlin Saab RN Assessment: Discharge Planning Assessment [id number] Lives Withspouse(1) Living Arrangementshouse(1) [place]) Resource/Environmental Concernsnone(1) [place]tic[place]ated Transition [place]) Services Anticipated at Transitionnon(1) Nursing Checklist: Lines/Cathetersremoved/ap propriate for next level of care Discharge Med Rec Reconciled with David Patient has Prescriptionsyes Transportation for Discharge Confirmedyes Follow up Reviewedyes Discharge Instructions Reviewed WithPatient, Significant Other Discharge Instructions Outcomeverbalize recall/understanding Discharge Instructions Review Completed with Patient/Family (diet, activity, pt instructions)yes Discharge Documentation: Discharge/Transfer Date/[id number] 14:25 Discharged Accompanied Bysignificant other/partner Discharge Modeambulatory Transportation Methodprivate car Code StatusCode Status order at time of discharge: Full Code [place] DNR Form Sent with Patient and/or Familyn/a Valuables/Medications/Bel ongings Returnedyes Final DispositionHome Electronic Signatures: Rebekah Rascon (RN) (Signed 30-Dec-2021 14:57) Authored: Discharge Planning, Nursing Checklist, Discharge Documentation Orlin Saab (RN) (Signed 26-Dec-2021 07:23) Authored: Discharge Planning, Assessment Last Updated: 30-Dec-2021 14:57 by Rebekah Rascon (RN) References: 1. Data Referenced From Patient Profile - OB v3 26-Dec-2021 07:07 Normal [facility] GLUCOSE-POCTon 12-26-2021 Glucose [Mass/Vol] 88 mg/dL Normal 74 - 99 [facility] Comment on above: Performed By: #### G RICHIE ####[address] [address] Glucose [Mass/Vol] 90 mg/dL Normal 74 - 99 [facility] Comment on above: Performed By: #### C BC #### [address] [address] Glucose [Mass/Vol] 105 mg/dL High 74 - 99 [facility] Comment on above: Performed By: #### C BC #### [address] [address] Laboratory - Blood bankon ABO group Nom (Bld) A [address] Work Phone: Blood group antibody screen Ql Negative [facility] Work Phone: Rh immune globulin screen (Bld) [Interp] Positive [facility] Work Phone: Laboratory - Chemistry and C hemistry - challengeon 12-26-2021 Glucose [Mass/Vol] 74 mg/dL 74 - 99 [facility] [employer] Work Phone: Glucose [Mass/Vol] 88 mg/dL 74 - 99 [facility] [employer] Work Phone: Glucose [Mass/Vol] 90 mg/dL 74 - 99 [facility] [employer] Work Phone: Glucose [Mass/Vol] 105 mg/dL above high threshold 74 - 99 [facility] Work Phone: Albumin BCP dye [Mass/Vol] 3.2 g/dL below low threshold 3.4 - 5.0 [facility] Work Phone: ALP [Catalytic activity/Vol] 148 U/L above high threshold 33 - 110 [facility] Work Phone: ALT With P-5'-P [Catalytic activity/Vol] 6 U/L below low threshold 7 - 45 [facility] Work Phone: Comment on above: Patients treated wit h Sulfasalazine may generate falsely decreased results for ALT. Anion gap [Moles/Vol] 14 mmol/L 10 - 20 [employer] Work Phone: AST With P-5'-P [Catalytic activity/Vol] 15 U/L 9 - 39 [facility] Work Phone: Bilirubin [Mass/Vol] 0.4 mg/dL 0.0 - 1.2 [facility] [employer] Work Phone: Calcium [Mass/Vol] 8.3 mg/dL below low threshold 8.6 - 10.3 [facility] [employer] Work Phone: [phone] Chloride [Moles/Vol] 107 mmol/L 98 - 107 [place] [facility] [address] [employer] Work Phone: [phone] CO2 [Moles/Vol] 19 mmol/L below low threshold 21 - 32 [place] [address] [employer] Work Phone: Creatinine [Mass/Vol] 0.66 mg/dL See Below [facility] Care[facility] Business ApplicationsDaniel [place] [address] [employer] Work Phone: Comment on above: Reference Range: 0.5 0 - 1.05 Glucose [Mass/Vol] 167 mg/dL above high threshold 74 - 99 [facility] Business ApplicationsDaniel [place] [address] [employer] Work Phone: Potassium [Moles/Vol] 3.8 mmol/L 3.5 - 5.3 [place] [address] [employer] Work Phone: Protein [Mass/Vol] 5.3 g/dL below low threshold 6.4 - 8.2 [facility] [employer] Work Phone: Sodium [Moles/Vol] 136 mmol/L 136 - 145 [place] [address] [employer] Work Phone: Urea nitrogen [Mass/Vol] 11 mg/dL 6 - 23 [place] [address] [employer] Work Phone: Laboratory - Hematology and Cell countson 12-26-2021 Erythrocyte distribution width (RBC) [Ratio] 13.5 % See Below [facility] Care[facility] Business ApplicationsDaniel [place] [address] [employer] Work Phone: Comment on above: Reference Range: 11. 5 - 14.5 Hematocrit (Bld) [Volume fraction] 42.6 % See Below [facility]DanlanDaniel [facility] [address] [employer] Work Phone: Comment on above: Reference Range: 36. 0 - 46.0 Hemoglobin (Bld) [Mass/Vol] 14.9 g/dL See Below [facility] Work Phone: Comment on above: Reference Range: 12. 0 - 16.0 MCHC (RBC) [Mass/Vol] 34.9 g/dL See Below [facility] Work Phone: Comment on above: Reference Range: 32. 0 - 36.0 MCV (RBC) [Entitic vol] 91 fL 80 - 100 [facility] Work Phone: Platelets (Bld) [#/Vol] 267 10*3/uL 150 - 450 [employer] Work Phone: RBC (Bld) [#/Vol] 4.70 {x10E12/L} See Below [facility] Work Phone: Comment on above: Reference Range: 4.0 0 - 5.20 WBC (Bld) [#/Vol] 15.0 10*3/uL above high threshold 4.4 - 11.3 [employer] Work Phone: No Panel Informationon 12-26 >90 >90 [employer] Work Phone: Comment on above: CALCULATIONS OF LENORE MATED GFR ARE PERFORMED USING THE 2020 CKD-EPI STUDY REFIT EQUATION WITHOUT THE RACE VARIABLE FOR THE IDMS-TRACEABLE CREATININE METHODS.https://jasn.asnjournals.org/content//ASN .1635695244 Order Reconciliationon 12-26 Order Reconciliation Page 1 Admission Reconciliation Document Reconciliation Type: Admission requested on behalf of Jose Carlos Petty (Physician) done by Jose Carlos Petty (DO) Admission - Reconciliation: 26-Dec-2021 06:53 by: Jose Carlos Petty (DO) Home MedicationsEnteredLast Dose TakenReconciled with current Order Reconciliation Comment/ Additional Information aspirin 81 mg oral tablet 2 tab(s) orally once a day (at bedtime)26-Dec-2021 Reviewed and Held [employer] 100 units/mL subcutaneous solution 20 unit(s) subcutaneous once a day (in the evening) [id number] Reviewed and Held [employer] 100 units/mL subcutaneous solution 4 unit(s) subcutaneous once a day (in the morning)26-Dec-2021 Reviewed and Held [employer] 20 subcutaneous once (at bedtime)26-Dec-2021 Reviewed and Held 1 oral capsule 26-Dec-2021 Reviewed and Held Tylenol 500 mg oral tablet 2 tab(s) orally every 6 [id number] Reviewed and Held Zoloft 25 mg oral tablet 1 tab(s) orally once a [id number] Sertraline Tablet (ZOLOFT)DOSE = 25 mg Oral DailyZoloft 25 mg oral tablet continued as the inpatient order Sertraline Additional Current Orders Acetaminophen Rectal Suppository (TYLENOL)DOSE = 650 mg Rectal Once, PRN Initial pain mgmt following deliveryClinician Notes: Administer in the OR. Carboprost IntraMuscular (HEMABATE)DOSE = 250 microgram(s) IntraMuscular Once, PRN post bleeding in non-asthmatic patientClinician Notes: Consult provider prior to administration. hydrALAZINE (APRESOLINE) Injectable DOSE = 5 mg IntraVenous Push Once, PRN Acute-onset, severe HTN w/out known, suspected CADClinician Notes: Consult provider prior to administration. Push over more than 2 minutes. Systolic greater than or equal to 160 OR Diastolic greater than or equal to 110. Contraindication: coronary artery disease (CAD); Caution in suspected CAD. Labetalol Injectable (TRANDATE)DOSE = 20 mg IntraVenous Push Once, PRN Acute-onset, sev HTN w/o active asthma/ carmelita<60Clinician Notes: Consult provider prior to administration. Push over more than 2 minutes. Systolic greater than or equal to 160 OR Diastolic greater than or equal to 110. Contraindications: active asthma, heart disease, heart failure, maternal bradycardia < 60. Lactated Ringers Infusion IV Bag Volume = 1,000 mL Run at: 125 mL/hr IntraVenous Lactated Ringers IV Bolus DOSE = 500 mL Once, PRN resuscitationInfuse over 30 minute(s) Lactated Ringers IV Bolus DOSE = 500 mL Once, PRN If patient is given an EpiduralInfuse over 30 minute(s)Clinican Notes: Give 30 minutes prior to Epidural catheter placement Loperamide Capsule (IMODIUM)DOSE = 4 mg Oral Every 2 Hours, PRN If Carboprost given or loose stoolsClinician Notes: Max dose of 16mg / 24 hours Methylergonovine Injectable (METHERGINE)DOSE = 0.2 mg IntraMuscular Once, PRN PPH in pts w/o HTN or receiving ART for HIV mgmt.Clinician Notes: Consult provider prior to administration.Notes from Pharmacy: Reproductive Risk - Single Nitrile Glove miSOPROStol IntraVaginal Tablet (CYTOTEC)DOSE = 25 microgram(s) IntraVaginal Every 3 HoursStop After 6 DosesClinician Notes: Contraindication: prior delivery, myomectomy or transfundal surgery.Notes from Pharmacy: Reproductive Risk - Single Nitrile Glove miSOPROStol Rectal Tablet (Cytotec)DOSE = 800 microgram(s) Rectal Once, PRN post bleedingClinician Notes: Consult provider prior to administration.Notes from Pharmacy: Reproductive Risk - Single Nitrile Glove NIFEdipine (PROCARDIA) CapsuleDOSE = 10 mg Oral Once, PRN Acute-onset, severe HTN w/out IV access/ pref oralClinician Notes: Consult provider prior to administration. Systolic greater than or equal to 160 OR Diastolic greater than or equal to 110. Capsules administered orally and swallowed whole; Do not puncture or crush; Do not administer sublingually. Ondansetron Injectable (ZOFRAN)DOSE = 4 mg IntraVenous Push Once, PRN Nausea & Vomiting Oxytocin 30 units/ NaCL 0.9% 500 mL Infusion with Bolus from Bag IntraVenous (PITOCIN)INITIAL Bolus = 600 milliunits/min infused over 30 minutesDose Rate: 60 milliunits/minAdmin Rate = 60 mL/hrStop After 1 DosesClinician Notes: 600 milliunits/min x 30 mins., then 60 milliunits/min for the remainder of the bag. Begin infusion at delivery of (s).Notes from Pharmacy: DOSE Rate = 60 milliunits/min = 60 mL/hr.Reproductive Risk - Single Nitrile Glove Oxytocin 30 units/ NaCL 0.9% 500 mL Infusion with Bolus from Bag IntraVenous (PITOCIN)INITIAL Bolus = 600 milliunits/min infused over 30 minutesDose Rate: 60 milliunits/minAdmin Rate = 60 mL/hrStop After 1 DosesClinician Notes: Conditional order. 600 milliunits/min x 30 mins., then 60 milliunits/min for the remainder of the bag. Consult Provider prior to administration.Notes from Pharmacy: DOSE Rate = 60 milliunits/min = 60 mL/hr. Oxytocin Injectable (PITOCIN)DOSE = 10 unit(s) IntraMuscular OnceClinician N (more content not included)... Normal [facility] Patient Profile - OB v3on Patient Profile - OB v3 Profile: Initial Info: How to be AddressedWhitley (1) Spoken Language PreferredEnglish (1) Source of Informationpatient Reason for admission this visitexpected delivery Wants Family/Rep Notified of Admissionn/a; family present Notify PCPdo not notify PCP Informed of Patient Visiting Rightsyes [facility] Patient Belongingsnone Home Meds have been Reviewed and Verified with Patient/Familyyes Medications Brought to Hospitalno Info: Gravida1 (1) Term Deliveries0 (1) Deliveries0 (1) Abortions0 (1) Living Children0 (1) Patient stated [id number] Calculation of EGA based on patient stated EDD39.2 Records availableyes Trimester Care Initiatedfirst Care ProviderDr. Ogema Current Risksgestational diabetes, hypertension, gestational Testsnonstress test; ultrasound Previous live (any gestational age)no Planno Childbirth Education Classes Planned or Attendedattended Contraceptionnone Baby's Post Discharge Care Provider (Provider Name, Address and Phone Number) [facility] Feedingbreastmilk Benefits of Breast Milk DiscussionThe benefits of exclusive breast milk feeding and the risk of adding formula have been discussed with patient / mother. Discussion Date / [id number] 07:10 Previous Experienceno General Health: Current Weight in kg86.6 kilogram(s) Current Weight in hor259.9 pound(s) Weight Methodactual (measured) Scale Typestanding Pre Weight (lb)175 pound(s) Total Weight Gain (lb)15 pound(s) Height in feet5 feet Height in inches3.98 inch(es) Height in cm162.5 centimeter(s) Height Methodstated BMI (kg/m2)32.795 square meter Patient or Family Member Reaction to Anesthesiano previous reaction Blood Avoidance/Restrictionsnon e Previous Transfusion Reactionno Rsp Based Care: How would you like to participate in your careepidural What is the number one concern for you during this hospitalizationBF What is the most important thing we can do to support you during this hospitalizationBreat pump Is there anything we need to know to best care for youPain control Substance: Smoking Statuslight user (uses <10 cig/day, OR <0.5 ppd, OR 1 can/pouch loose leaf tobacco per week, OR <0.5 vape pods per day) Tobacco Cessation Education (provide if tobacco use within the last 12 mos) patient declined Alcohol Usedenies Drug Usedenies Drug 2 Usedenies Health Mgmt: Symptoms/Conditions Managed at Homechronic pain Chronic Pain Locationchronic HTN tension COBOS/migraines Chronic Pain Managementmanaged Barriers to Managing Healthnone Relationship/Environ: Primary Source of Support/Comfortspouse Lives Withspouse Living Arrangementshouse Significant Exposurenone Resource/Environmental Concernsnone [facility]ticipated [facility] Anticipated at Transitionnone Additional Information: Information Review: Allergies and Significant Events have been Reviewed and Verified with Patient/Familyyes Allergy, Intolerance, Adverse Event: Allergies: No Known Allergies: Active Electronic Signatures: Orlin Saab (RN) (Signed 26-Dec-2021 07:15) Authored: Initial Info, Info, General Health, Substance, Health Mgmt, Relationship/Environ, Additional Information Maria Isabel Luciano (PARAMJIT) (Signed 27-Dec-2021 13:58) Authored: Info, Rsp Based Care Last Updated: 27-Dec-2021 13:58 by Maria Isabel Luciano (PARAMJIT) References: 1. Data Referenced From Triage Note - OB v4 23-Dec-2021 10:08 Normal [facility] SYPHILIS SCREENING WITH REFL EXon 12-26-2021 SYPHILIS TOTAL AB Non-Reactive Normal NONREACTIVE [facility] Comment on above: Result Comment: No s ignificant level of Treponema pallidum antibody detected. Repeat testing in 2 to 4 weeks may be considered if early infection or incubating syphilis infection is suspected. Performed By: #### S [facility] ####[id number] [place], [place] [id number] Lab Specimen Source Normal [facility] Comment on above: Performed By: #### S [facility] ####[id number] [place], [place] [id number] T. pallidum IgG+IgM IA Ql (S) Non-Reactive See Below [facility] CallmyName Work Phone: Comment on above: SOURCE: Reference Ra nge: NONREACTIVENo significant level of Treponema pallidum antibody detected. Repeat testing in 2 to 4 weeks may be considered if early infection or incubating syphilis infection is suspected. TYPE + SCREENon 12-26-2021 ABO TYPE A [facility] Comment on above: Performed By: #### C BC #### [address] [address] RH TYPE Positive [facility] Comment on above: Performed By: #### C BC #### [address] [address] Coronavirus 2019 RNA by PCR, Screening Asymptomticon 12-23-2021 Coronavirus 2019 RNA by PCR, Screening Asymptomtic Not detected Normal See Below [facility] CallmyName Work Phone: Comment on above: SOURCE: Nasal, Nasop haryngealReference Range: Not Detected.This assay is designed to detect the N, ORF1ab and/or S genes of SARS-CoV-2 via nucleic acid amplification. A Negative (NOT DETECTED) result does not preclude 2019-nCoV infection since the adequacy of sample collection and/or low viral burden may result in presence of viral nucleic acids below the clinical sensitivity of this test method. Negative (NOT DETECTED) result should not be used as the sole basis for treatment or other patient management decisions. Rather negative results should be combined with clinical observations, patient history, and epidemiological information to make patient management decisions.Fact sheet for providers: https://www.fda.gov/media/980564/downloadFact sheet for patients: https://www.fda.gov/media/749297/downloadThis test has received FDA Emergency Use Authorization (EUA) and has been verified by [facility] ([facility]). This test is only authorized for the duration of time that circumstances exist to justify the authorization of the emergency use of in vitro diagnostic tests for the detection of SARS-CoV-2 virus and/or diagnosis of COVID-19 infection under section 564(b)(1) of the Act, 21 U.S.C. 360bbb-3(b)(1), unless the authorization is terminated or revoked sooner. [facility] is certified under CLIA-88 as qualified to perform high complexity testing. Testing is performed in the [facility] laboratories located at [address] [place] [address]. Daily Progress Note - OB-Ant enatal Testingon 12-23-2021 Daily Progress Note - OB- Testing Current Stage: Stage: Testing Objective Information: Objective Information: T PRBPMAPSpO2 Value36.26470013/680339% Date/Time12/23 10: 10: 10: 10: 10: 10:12 Range(36.7C - 36.7C ) (74 - 91 ) (18 - 18 ) (131 - 131 )/ (79 - 79 ) (99 - 99 ) (98% - 98% ) Pain reported at 12/23 10:15: 0 = None Testing: Indications: Gycrhhgies60 week. CHTN. GDMA2 NST Interpretation - Baby A: Baseline [id number] Variabilitymoderate (amplitude range 6 to 25 bpm) InterpretationReactive (2 15x15 accels) Accelerationspresent Decelerationsabsent Assessment and Plan: Assessment: 1)GDMA2-NST reacitve 2)CHTN-BPs stable. Electronic Signatures: Jose Carlos Petty) (Signed 23-Dec-2021 10:34) Authored: Current Stage, Objective Data, Testing, Assessment and Plan, Note Completion Last Updated: 23-Dec-2021 10:34 by Jose Carlos Petty () [facility] Risk Screen - OB Triageon Risk Screen - OB Triage Allergies: Allergies: Allergies: No Known Allergies: Patient Verification: Patient Verification: New W ID Band Applied in my Departmentyes Patient Identity Verified Bydriver's license/state ID; patient ID Band FULL Name, include Middle, spelling matches patient's ID used for verificationyes ID Band Matches Patient ID used for Verficationyes ID Band MRN Matches EMR MRNyes Travel History: Travel History: COVID-19 Screening Completedno exposure or symptoms Travel or Exposure Past 30 DaysNO travel to International locations in the past 30 days Advance Directives: Advance Directive: Advance Directive/DNRno Advance Directive Information Givenpatient/family declined Falls Risk: Ware Fall Screen: History of falling (immediate or previous)no (0) Secondary Diagnosisno (0) Intravenous Therapy/ Heparin/Saline Lockno (0) Gait/Transferringnormal/b edrest/wheelchair (0) Ambulatory Aidsnone/bedrest/nurse assist (0) Mental Statusoriented to own ability (0) Score: Low risk (<25). Moderate risk (25-44). High risk (>44).0 Ware InterventionsLOW INTERVENTIONS: *patient oriented to surroundings and call system, * patient/family falls education completed and documented, *patients fall status communicated during bedside handoff, *whiteboard updated, *mode of toileting discussed with patient, *bed in low position with brakes locked, *call light in reach, * non-skid footwear Learning Assessment (Patient): Learning Assessment (Patient): Patient is Able to be Assessed for Learningyes Factors Influencing Readiness to Learninterest in learning; motivation to learn Factors that Impact Ability to Learnnone Devices/Methods Used to Communicatenone Learning Preferenceswritten material; verbal instruction; skill demonstration; individual instruction Cultural Considerationsnone Developmental Considerationsnone Jainism Considerationsnone Learning Assessment (Other Learner): Other learner availableno Depression/Suicide: Depression Screen: During the past month, have you often been bothered by feeling down, depressed or hopelessno During the past month, have you often had little interest or pleasure in doing thingsno Have you had any thoughts of harming anyone elseno [place] Suicide: Risk Screen Not Applicable/Able to Answerable to be screened In the Past Month: Have you wished you were or could go to sleep and not wake upno In the Past Month: Have you had any actual thoughts of killing yourselfno Lifetime: Have you ever done, started to do, or prepared to do anything to end your lifeno [place] Suicide Risknegative Family Violence: Abuse Screen: Are you or have you been threatened or abused physically, emotionally, or sexually by anyoneyes 10 years ago Do you feel UNSAFE going back to the place where you are livingno Clinical assessment: Are there any apparent signs of injuries/behaviors that could be related to abuse/neglectno Electronic Signatures: Vinita Ferrer (CLIN COOR) (Signed 23-Dec-2021 10:08) Authored: Allergies, Patient Verification, Travel History, Advance Directives, Ware Fall Screen, Learning Assessment (Patient), Learning Assessment (Other Learner), Depression/Suicide, Family Violence Last Updated: 23-Dec-2021 10:08 by Vinita Ferrer (CLIN COOR) [facility] Daily Progress Note - OB-Ant enatal Testingon 12-20-2021 Daily Progress Note - OB- Testing Current Stage: Stage: Testing Objective Information: Objective Information: T PRBPMAPSpO2 Value36.44799056/902861% Date/Time12/20 13: 13: 13: 13: 13: 13:14 Range(36.8C - 36.8C ) (86 - 86 ) (16 - 16 ) (128 - 128 )/ (72 - 72 ) (91 - 91 ) (96% - 96% ) Testing: Indications: Uibjjliwil50 weeks gestation. CHTN. GDMA2 NST Interpretation - Baby A: Baseline [id number] Variabilitymoderate (amplitude range 6 to 25 bpm) InterpretationReactive (2 15x15 accels) Accelerationspresent Decelerationsabsent Assessment and Plan: Additional Dx: 38 weeks gestation of : Entered Date: 20-Dec-2021 14:01 Chronic benign essential hypertension in third trimester: Entered Date: 12-Nov-2021 10:08 Insulin controlled gestational diabetes mellitus (GDM) in third trimester: Entered Date: 09-Nov-2021 16:27 Assessment: 1)GDMA2- NST reactive. Routine care 2)CHTN-BPs stable. Electronic Signatures: Jose Carlos Petty) (Signed 20-Dec-2021 14:02) Authored: Current Stage, Objective Data, Testing, Assessment and Plan, Note Completion Last Updated: 20-Dec-2021 14:02 by Jose Carlos Petty () [facility] Triage Note - OB v4on 2021 Triage Note - OB v4 Triage: General Info: Time of Arrival on [id number] 13:05 [facility] Time Acuity Level [id number]-Ttx-2374 13:17 Chief ComplaintNST GDM/HTN How to be AddressedWhitley (1) Spoken Language PreferredEnglish (1) Source of Informationpatient Weight Methodactual (measured) Scale Typestanding Pre Weight (lb)173 pound(s) Total Weight Gain (lb)9 pound(s) Height in feet5 feet Height in inches3.98 inch(es) Height in cm162.5 centimeter(s) Height Methodstated BMI (kg/m2)31.356 square meter Blood Avoidance/Restrictionsnon e(1) Previous Transfusion Reactionno(1) Patient Belongingsnone Home Meds have been Reviewed and Verified with Patient/Familyyes Info: Gravida1 Term Deliveries0 Deliveries0 Abortions0 Living Children0 Patient stated [id number] Calculation of EGA based on patient stated EDD38.3 Records availableyes Trimester Care Initiatedfirst Care ProviderADAIR Current Risksgestational diabetes, hypertension, chronic Testsnonstress test; ultrasound Previous live (any gestational age)no Substance: Smoking Statusnever smoker Alcohol Usedenies Drug Usedenies Drug 2 Usedenies Disposition/Disch: Dispositiondischarged from facility, home with own care Patient Meets Criteria for Home Blood Pressure Monitorno Admission/Observation/Dis charge/Transfer Date/[id number]-Xyw-9939 14:04 Discharge Modeambulatory Transportation Methodprivate car Travel History: Travel or ExposureNO travel to International locations in the past 30 days Additional Information: Information Review: Allergies have been Reviewed and Verified with Patient/Familyyes Allergy, Intolerance, Adverse Event: Allergies: No Known Allergies: Active Electronic Signatures: Ada Edmondson (PARMAJIT) (Signed 20-Dec-2021 14:08) Authored: General Info, Info, Substance, Disposition/Disch, Travel History, Additional Information Last Updated: 20-Dec-2021 14:08 by Ada Edmondson (PARAMJIT) References: 1. Data Referenced From Triage Note - OB v4 16-Dec-2021 13:14 Normal [facility] Daily Progress Note - OB-Ant enatal Testingon 12-16-2021 Daily Progress Note - OB- Testing Current Stage: Stage: Testing OB Dating: EDC/EGA: Final [id number] EGA37.6 Objective Information: Objective Information: T PRBPMAPSpO2 Value36.03009903/531322% Date/Time12/16 13: 13: 13: 13: 13: 13:04 Range(36.6C - 36.6C ) (83 - 83 ) (16 - 16 ) (118 - 118 )/ (74 - 74 ) (89 - 89 ) (96% - 96% ) Pain reported at 12/16 13:15: 0 = None Testing: NST Interpretation - Baby A: InterpretationReactive (2 15x15 accels) Assessment and Plan: Additional Dx: 37 weeks gestation of : Entered Date: 13-Dec-2021 16:18 Type 2 diabetes mellitus in third trimester, antepartum: Onset Date: 21-Nov-2021, Entered Date: 21-Nov-2021 09:40 Chronic benign essential hypertension in third trimester: Entered Date: 12-Nov-2021 10:08 Assessment: 1. Reactive NST Electronic Signatures: Anton Hernanedz) (Signed 16-Dec-2021 13:35) Authored: Current Stage, OB Dating, Objective Data, Testing, Assessment and Plan, Note Completion Last Updated: 16-Dec-2021 13:35 by Anton Hernandez) [facility] Triage Note - OB v4on 2021 Triage Note - OB v4 Triage: General Info: Time of Arrival on [id number]-2769 12:55 [facility] Ac[facility] Level5 Time Acuity Level Xqyicrfk11-Pdp-2296 12:55 Chief ComplaintNST/ GDM & HTN How to be AddressedWhitley (1) Spoken Language PreferredEnglish (1) Weight in kg82.8 kilogram(s) Weight in sse648.5 pound(s) Weight Methodactual (measured) Scale Typestanding Pre Weight (lb)173 pound(s) Total Weight Gain (lb)9 pound(s) Height in feet5 feet Height in inches3.98 inch(es) Height in cm162.5 centimeter(s) Height Methodstated BMI (kg/m2)31.356 square meter Blood Avoidance/Restrictionsnon e(1) Previous Transfusion Reactionno(1) Patient Belongingsnone Home Meds have been Reviewed and Verified with Patient/Familyyes Info: Gravida1 Term Deliveries0 Deliveries0 Abortions0 Living Children0 Patient stated [id number] Calculation of EGA based on patient stated EDD37.6 Records availableyes Trimester Care Initiatedfirst Care ProviderADAIR Current Risksgestational diabetes, hypertension, chronic Testsnonstress test; ultrasound Previous live (any gestational age)no Substance: Smoking Statusnever smoker Alcohol Usedenies Drug Usedenies Drug 2 Usedenies Disposition/Disch: Dispositiondischarged from facility, home with own care Patient Meets Criteria for Home Blood Pressure Monitorno Admission/Observation/Dis charge/Transfer Date/[id number]-Fma-6602 13:36 Discharge Modeambulatory Transportation Methodprivate car Travel History: Travel or ExposureNO travel to International locations in the past 30 days Additional Information: Information Review: Allergies have been Reviewed and Verified with Patient/Familyyes Allergy, Intolerance, Adverse Event: Allergies: No Known Allergies: Active Electronic Signatures: Ada Edmondson (PARAMJIT) (Signed 16-Dec-2021 13:39) Authored: General Info, Info, Substance, Disposition/Disch, Travel History, Additional Information Last Updated: 16-Dec-2021 13:39 by Ada Edmondson (PARAMJIT) References: 1. Data Referenced From Triage Note - OB v4 13-Dec-2021 13:08 [facility] Daily Progress Note - OB-Ant enatal Testingon 12-13-2021 Daily Progress Note - OB- Testing Current Stage: Stage: Testing OB Dating: EDC/EGA: Final [id number]-4666 EGA37.3 Objective Information: Objective Information: T PRBPMAPSpO2 Value36.30386541/2076433% Date/Time12/13 13:174 13: 13: 13:174 13:174 13:20 Range(36.6C - 36.6C ) (95 - 98 ) (16 - 16 ) (134 - 134 )/ (82 - 82 ) (101 - 101 ) (97% - 97% ) Pain reported at 4/5 13:17: 0 = None Testing: NST Interpretation - Baby A: InterpretationReactive (2 15x15 accels) Assessment and Plan: Additional Dx: 37 weeks gestation of : Entered Date: 13-Dec-2021 16:18 Type 2 diabetes mellitus in third trimester, antepartum: Onset Date: 21-Nov-2021, Entered Date: 21-Nov-2021 09:40 Chronic benign essential hypertension in third trimester: Entered Date: 12-Nov-2021 10:08 Assessment: Reactive NST Electronic Signatures: Anton Hernandze) (Signed 13-Dec-2021 16:18) Authored: Current Stage, OB Dating, Objective Data, Testing, Assessment and Plan, Note Completion Last Updated: 13-Dec-2021 16:18 by Anton Hernandez) [facility] Risk Screen - OB Triageon Risk Screen - OB Triage Allergies: Allergies: Allergies: No Known Allergies: Patient Verification: Patient Verification: New W ID Band Applied in my Departmentyes Patient Identity Verified Bypatient ID Band FULL Name, include Middle, spelling matches patient's ID used for verificationyes ID Band Matches Patient ID used for Verficationyes ID Band MRN Matches EMR MRNyes Travel History: Travel History: COVID-19 Screening Completedno exposure or symptoms Travel or Exposure Past 30 DaysNO travel to International locations in the past 30 days Advance Directives: Advance Directive: Advance Directive/DNRno Advance Directive Information Givenpatient/family declined Falls Risk: Ware Fall Screen: History of falling (immediate or previous)no (0) Secondary Diagnosisno (0) Intravenous Therapy/ Heparin/Saline Lockno (0) Gait/Transferringnormal/b edrest/wheelchair (0) Ambulatory Aidsnone/bedrest/nurse assist (0) Mental Statusoriented to own ability (0) Score: Low risk (<25). Moderate risk (25-44). High risk (>44).0 Ware InterventionsLOW INTERVENTIONS: *patient oriented to surroundings and call system, * patient/family falls education completed and documented, *patients fall status communicated during bedside handoff, *whiteboard updated, *mode of toileting discussed with patient, *bed in low position with brakes locked, *call light in reach, * non-skid footwear Learning Assessment (Patient): Learning Assessment (Patient): Patient is Able to be Assessed for Learningyes Factors Influencing Readiness to Learninterest in learning Factors that Impact Ability to Learnnone Devices/Methods Used to Communicatenone Learning Preferencesverbal instruction Cultural Considerationsnone Developmental Considerationsnone Jainism Considerationsnone Learning Assessment (Other Learner): Other learner availableno Depression/Suicide: Depression Screen: During the past month, have you often been bothered by feeling down, depressed or hopelessno During the past month, have you often had little interest or pleasure in doing thingsno Have you had any thoughts of harming anyone elseno [place] Suicide: Risk Screen Not Applicable/Able to Answerable to be screened In the Past Month: Have you wished you were or could go to sleep and not wake upno In the Past Month: Have you had any actual thoughts of killing yourselfno Lifetime: Have you ever done, started to do, or prepared to do anything to end your lifeno [place] Suicide Risknegative Family Violence: Abuse Screen: Are you or have you been threatened or abused physically, emotionally, or sexually by anyoneno Has anyone ever threatened to hurt your family or your petsno Does anyone try to keep you from having/contacting other friends or doing things outside your homeno Do you feel UNSAFE going back to the place where you are livingno Do you feel anyone has exploited or taken advantage of you financially or of your personal propertyno Clinical assessment: Are there any apparent signs of injuries/behaviors that could be related to abuse/neglectno Electronic Signatures: Maria Isabel Luciano (RN) (Signed 13-Dec-2021 13:27) Authored: Allergies, Patient Verification, Travel History, Advance Directives, Ware Fall Screen, Learning Assessment (Patient), Learning Assessment (Other Learner), Depression/Suicide, Family Violence Last Updated: 13-Dec-2021 13:27 by Maria Isabel Luciano (RN) [facility] Triage Note - OB v4on 2021 Triage Note - OB v4 Triage: General Info: Time of Arrival on [id number] 13:05 [facility] Ac[facility] Level5 Chief ComplaintHTN; GDM How to be AddressedWherlinda (1) Spoken Language PreferredEnglish (1) Weight in kg82.4 kilogram(s) Weight in udu714.6 pound(s) Weight Methodactual (measured) Scale Typestanding Blood Avoidance/Restrictionsnon e(1) Previous Transfusion Reactionno(1) Home Meds have been Reviewed and Verified with Patient/Familyyes Info: Gravida1 Term Deliveries0 Deliveries0 Abortions0 Living Children0 Patient stated [id number] Calculation of EGA based on patient stated EDD37.3 Records availableyes Current Risksgestational diabetes, hypertension, chronic Substance: Smoking Statusnever smoker Alcohol Usedenies Drug Usedenies Drug 2 Usedenies Disposition/Disch: Dispositionplaced in an observation care level Patient Meets Criteria for Home Blood Pressure Monitoryes Home Blood Pressure Monitor Providedno, patient already has BP monitor at home or has plans to obtain monitor; given Rx to obtain monitor Travel History: Travel or ExposureNO travel to International locations in the past 30 days Additional Information: Information Review: Allergies have been Reviewed and Verified with Patient/Familyyes Allergy, Intolerance, Adverse Event: Allergies: No Known Allergies: Active Electronic Signatures: Maria Isabel Luciano (PARAMJIT) (Signed 13-Dec-2021 13:25) Authored: General Info, Info, Substance, Disposition/Disch, Travel History, Additional Information Last Updated: 13-Dec-2021 13:25 by Maria Isabel Luciano (PARAMJIT) References: 1. Data Referenced From Triage Note - OB v4 09-Dec-2021 13:15 Normal [facility] Daily Progress Note - OB-Ant enatal Testingon 12-09-2021 Daily Progress Note - OB- Testing Current Stage: Stage: Testing Objective Information: Objective Information: T PRBPMAPSpO2 [id number]% Date/Time12/09 13:154 13:354 13:154 13:154 13:154 13:35 Range(36.6C - 36.6C ) (80 - 85 ) (16 - 16 ) (137 - 137 )/ (66 - 66 ) (92 - 92 ) (97% - 98% ) Pain reported at 12/09 13:15: 0 = None Testing: Indications: Xdrdfgnavx04 week. GDMA2. CHTN NST Interpretation - Baby A: Baseline [id number] Variabilitymoderate (amplitude range 6 to 25 bpm) InterpretationReactive (2 15x15 accels) Accelerationspresent Decelerationsabsent Assessment and Plan: Additional Dx: 36 weeks gestation of : Entered Date: 09-Dec-2021 13:38 Chronic benign essential hypertension in third trimester: Entered Date: 12-Nov-2021 10:08 Insulin controlled gestational diabetes mellitus (GDM) in third trimester: Entered Date: 09-Nov-2021 16:27 Assessment: 1)GDMA2- NST reactive. Routine care 2)CHTN-BPs stable. Electronic Signatures: Jose Carlos Petty) (Signed 09-Dec-2021 13:39) Authored: Current Stage, Objective Data, Testing, Assessment and Plan, Note Completion Last Updated: 09-Dec-2021 13:39 by Jose Carlos Petty) [facility] Triage Note - OB v4on 2021 Triage Note - OB v4 Triage: General Info: Time of Arrival on [id number]-2013 13:00 [facility] Time Acuity Level [id number]-[id number] 13:00 Chief ComplaintScheduled NST d/t GDM chronic HTN How to be AddressedWhitley (1) Spoken Language PreferredEnglish (1) Source of Informationpatient Weight Methodactual (measured) Scale Typestanding Pre Weight (lb)177 pound(s) Total Weight Gain (lb)7 pound(s) Height in feet5 feet Height in inches3.98 inch(es) Height in cm162.5 centimeter(s) Height Methodstated BMI (kg/m2)31.621 square meter Blood Avoidance/Restrictionsnon e(1) Previous Transfusion Reactionno(1) Patient Belongingsremains with patient Patient Belongings Remaining with Patientcell phone/electronics; jewelry; purse/wallet; clothing Home Meds have been Reviewed and Verified with Patient/Familyyes Info: Gravida1 Term Deliveries0 Deliveries0 Abortions0 Living Children0 Patient stated [id number] Calculation of EGA based on patient stated EDD36.6 Records availableyes Trimester Care Initiatedfirst Care ProviderDr. Petty Current Risksgestational diabetes, hypertension, chronic, STD/STI, HPV Testsnonstress test Substance: Smoking Statuslight user (uses <10 cig/day, OR <0.5 ppd, OR 1 can/pouch loose leaf tobacco per week, OR <0.5 vape pods per day) Tobacco Cessation Education (provide if tobacco use within the last 12 mos) patient declined Alcohol Usedenies Drug Usedenies Drug 2 Usedenies Disposition/Disch: Dispositiondischarged from facility, home with own care Patient Meets Criteria for Home Blood Pressure Monitorno Admission/Observation/Dis charge/Transfer Date/Vbpx60-Enu-8330 13:40 Discharged Accompanied Byspouse Discharge Modeambulatory Transportation Methodprivate car Travel History: Travel or ExposureNO travel to International locations in the past 30 days Additional Information: Information Review: Allergies have been Reviewed and Verified with Patient/Familyyes Allergy, Intolerance, Adverse Event: Allergies: No Known Allergies: Active Electronic Signatures: Rebekah Rascon (PARAMJIT) (Signed 09-Dec-2021 13:55) Authored: General Info, Info, Substance, Disposition/Disch, Travel History, Additional Information Last Updated: 09-Dec-2021 13:55 by Rebekah Rascon (PARAMJIT) References: 1. Data Referenced From Triage Note - OB v4 06-Dec-2021 13:21 [facility] Daily Progress Note - OB-Ant enatal Testingon 12-06-2021 Daily Progress Note - OB- Testing Current Stage: Stage: Testing Objective Information: Objective Information: T PRBPMAPSpO2 [id number]/7394 Date/Time12/06 13: 14: 13: 14: 14:05 Range(36.9C - 36.9C ) (82 - 83 ) (16 - 16 ) (109 - 125 )/ (72 - 73 ) (86 - 94 ) Highest temp of 36.9 C was recorded at 12/06 13:14 Testing: Indications: Indicationgestational diabetes NST Interpretation - Baby A: Baseline [id number] Variabilitymoderate (amplitude range 6 to 25 bpm) InterpretationNon-Reactiv e Accelerationspresent Biophysical Profile - Baby A: ReactiveNon reactive non stress test Breath MovementsAt least 30 seconds of sustained FBM/30 minutes Movements3 or more gross body movements/30 minutes ToneAt least 1 episode of motion of limb Amniotic Fluid VolumePocket of fluid at least 2 cm in 2 perpendicular planes BPP Score8 Assessment and Plan: Assessment: Patient with GDM and nonractive NST. BPP /. Continue biwkly testing. Electronic Signatures: Angie Abla) (Signed 06-Dec-2021 14:46) Authored: Current Stage, Objective Data, Testing, Assessment and Plan, Note Completion Last Updated: 06-Dec-2021 14:46 by Angie Alba) [facility] Laboratory - Microbiology an d Antimicrobial susceptibilityon 12-06-2021 Bacteria identified Aer cx Nom (Genital specimen) [employer] [place] [employer] Phone: Triage Note - OB v4on 2021 Triage Note - OB v4 Triage: General Info: Time of Arrival on [id number]-3682 13:10 [facility]5 Time Acuity Level Unxbjzsc16-Agv-2859 13:20 Chief ComplaintScheduled nst gest diabetes and chronic hypternsion How to be AddressedWhitley (1) Spoken Language PreferredEnglish (1) Source of Informationpatient Weight in kg83.5 kilogram(s) Weight in cme441 pound(s) Weight Methodactual (measured) Scale Typestanding Pre Weight (lb)177 pound(s) Total Weight Gain (lb)7 pound(s) Height in feet5 feet Height in inches4 inch(es) Height in cm162.5 centimeter(s) Height Methodstated BMI (kg/m2)31.621 square meter Blood Avoidance/Restrictionsnon e(1) Previous Transfusion Reactionno(1) Patient Belongingsremains with patient Patient Belongings Remaining with Patientcell phone/electronics; jewelry; purse/wallet; clothing Home Meds have been Reviewed and Verified with Patient/Familyyes Info: Gravida1 Term Deliveries0 Deliveries0 Abortions0 Living Children0 Patient stated [id number] Calculation of EGA based on patient stated EDD36.3 Records availableyes Trimester Care Initiatedfirst Care ProviderDr. Joel Current Risksgestational diabetes, hypertension, chronic, STD/STI, HPV Testsnonstress test Substance: Smoking Statuslight user (uses <10 cig/day, OR <0.5 ppd, OR 1 can/pouch loose leaf tobacco per week, OR <0.5 vape pods per day) Tobacco Cessation Education (provide if tobacco use within the last 12 mos) patient declined Alcohol Usedenies Drug Usedenies Drug 2 Usedenies Disposition/Disch: Dispositiondischarged from facility, home with own care Patient Meets Criteria for Home Blood Pressure Monitoryes Home Blood Pressure Monitor Providedno, patient already has BP monitor at home or has plans to obtain monitor; given Rx to obtain monitor Admission/Observation/Dis charge/Transfer Date/[id number]-Rpp-1169 14:40 Discharge Modeambulatory Transportation Methodprivate car Travel History: Travel or ExposureNO travel to International locations in the past 30 days Additional Information: Information Review: Allergies have been Reviewed and Verified with Patient/Familyyes Allergy, Intolerance, Adverse Event: Allergies: No Known Allergies: Active Electronic Signatures: Bethany Grady (PARAMJIT) (Signed 06-Dec-2021 14:54) Authored: General Info, Info, Substance, Disposition/Disch, Travel History, Additional Information Last Updated: 06-Dec-2021 14:54 by Bethany Grady (PARAMJIT) References: 1. Data Referenced From Triage Note - OB v4 02-Dec-2021 13:07 Normal [facility] Daily Progress Note - OB-Ant enatal Testingon 12-02-2021 Daily Progress Note - OB- Testing Current Stage: Stage: Testing OB Dating: EDC/EGA: Final [id number]-Ccu-4298 EGA35.6 Objective Information: Objective Information: T PRBPMAPSpO2 Value36.19003914/551877% Date/Time12/02 13: 13: 13: 13: 13: 13:14 Range(36.6C - 36.6C ) (81 - 81 ) (16 - 16 ) (126 - 126 )/ (69 - 69 ) (92 - 92 ) (96% - 96% ) Pain reported at 12/02 13:14: 0 = None Testing: NST Interpretation - Baby A: InterpretationReactive (2 15x15 accels) Assessment and Plan: Additional Dx: 35 weeks gestation of : Entered Date: 02-Dec-2021 13:37 Chronic benign essential hypertension in third trimester: Entered Date: 12-Nov-2021 10:08 Insulin controlled gestational diabetes mellitus (GDM) in third trimester: Entered Date: 09-Nov-2021 16:27 Assessment: Reactive NST Electronic Signatures: Anton Hernandez) (Signed 02-Dec-2021 13:37) Authored: Current Stage, OB Dating, Objective Data, Testing, Assessment and Plan, Note Completion Last Updated: 02-Dec-2021 13:37 by Anton Hernandez) [facility] Risk Screen - OB Triageon Risk Screen - OB Triage Allergies: Allergies: Allergies: No Known Allergies: Patient Verification: Patient Verification: New W ID Band Applied in my Departmentyes Patient Identity Verified Bydriver's license/state ID; patient ID Band FULL Name, include Middle, spelling matches patient's ID used for verificationyes ID Band Matches Patient ID used for Verficationyes ID Band MRN Matches EMR MRNyes Travel History: Travel History: COVID-19 Screening Completedno exposure or symptoms Travel or Exposure Past 30 DaysNO travel to International locations in the past 30 days Advance Directives: Advance Directive: Advance Directive/DNRno Advance Directive Information Givenpatient/family declined Falls Risk: Ware Fall Screen: History of falling (immediate or previous)no (0) Secondary Diagnosisno (0) Intravenous Therapy/ Heparin/Saline Lockno (0) Gait/Transferringnormal/b edrest/wheelchair (0) Ambulatory Aidsnone/bedrest/nurse assist (0) Mental Statusoriented to own ability (0) Score: Low risk (<25). Moderate risk (25-44). High risk (>44).0 Ware InterventionsLOW INTERVENTIONS: *patient oriented to surroundings and call system, * patient/family falls education completed and documented, *patients fall status communicated during bedside handoff, *whiteboard updated, *mode of toileting discussed with patient, *bed in low position with brakes locked, *call light in reach, * non-skid footwear Learning Assessment (Patient): Learning Assessment (Patient): Patient is Able to be Assessed for Learningyes Factors Influencing Readiness to Learninterest in learning; motivation to learn Factors that Impact Ability to Learnnone Devices/Methods Used to Communicatenone Learning Preferenceswritten material; verbal instruction; skill demonstration; individual instruction Cultural Considerationsnone Developmental Considerationsnone Jainism Considerationsreligious considerations Restorationist Learning Assessment (Other Learner): Other learner availableno Depression/Suicide: Depression Screen: During the past month, have you often been bothered by feeling down, depressed or hopelessyes Hx: Depression During the past month, have you often had little interest or pleasure in doing thingsyes Started on Zoloft in October Have you had any thoughts of harming anyone elseno [place] Suicide: Risk Screen Not Applicable/Able to Answerable to be screened In the Past Month: Have you wished you were or could go to sleep and not wake upno In the Past Month: Have you had any actual thoughts of killing yourselfno Lifetime: Have you ever done, started to do, or prepared to do anything to end your lifeno [place] Suicide Risknegative Family Violence: Abuse Screen: Are you or have you been threatened or abused physically, emotionally, or sexually by anyoneno Do you feel UNSAFE going back to the place where you are livingno Clinical assessment: Are there any apparent signs of injuries/behaviors that could be related to abuse/neglectno Electronic Signatures: Vinita Ferrer (CLIN COOR) (Signed 02-Dec-2021 13:07) Authored: Allergies, Patient Verification, Travel History, Advance Directives, Ware Fall Screen, Learning Assessment (Patient), Learning Assessment (Other Learner), Depression/Suicide, Family Violence Last Updated: 02-Dec-2021 13:07 by Vinita Ferrer (CLIN COOR) [facility] Triage Note - OB v4on 2021 Triage Note - OB v4 Triage: General Info: Time of Arrival on [id number]-Lqe-1070 13:00 [facility]4 Time Acuity Level Jexkvgev37-Kks-3426 13:00 Modified Acuity Level4 Time Modified Acuity Level Fbmzvyje81-Ink-9828 13:08 Chief ComplaintNST How to be AddressedWhitley (1) Spoken Language PreferredEnglish (1) Source of Informationpatient; health record Weight in kg84.7 kilogram(s) Weight in nug591.7 pound(s) Weight Methodactual (measured) Scale Typestanding Pre Weight (lb)177 pound(s) Total Weight Gain (lb)9 pound(s) Height in feet5 feet Height in inches3.98 inch(es) Height in cm162.5 centimeter(s) Height Methodstated BMI (kg/m2)32.075 square meter Blood Avoidance/Restrictionsnon e(1) Previous Transfusion Reactionno(1) Patient Belongingsremains with patient Patient Belongings Remaining with Patientcell phone/electronics; jewelry; purse/wallet; clothing Home Meds have been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 gestational diabetes mellitus (GDM) in third trimester: Entered Date: 09-Nov-2021 16:27 32 weeks gestation of : Entered Date: 09-Nov-2021 16:26 Assessment: 1. Gestational diabetes on insulin 2. Reactive NST Electronic Signatures: Anton Hernandez) (Signed 09-Nov-2021 16:28) Authored: Current Stage, OB Dating, Objective Data, Testing, Assessment and Plan, Note Completion Last Updated: 09-Nov-2021 16:28 by Anton Hernandez) [facility] Laboratory - Chemistry and C hemistry - challengeon 11-01-2021 Glucose [Mass/Vol] 96 mg/dL 74 - 99 [facility] Work Phone: No Panel Informationon 11-01 Normal [facility] Work Phone: Tobacco Screening.on 022 Fall risk assessment a) No falls within the last year [facility] [facility] [facility] Work Phone: Tobacco use status [facility] b) No [facility] [facility] Work Phone: Clinical Event Noteon 2021 Clinical Event Note Clinical Event: Clinical Event Note: Details 10/12/2021 Pt here for TdAP injection. Pt is 28wks gestation. Pt denies any leaking of fluid or bleeding. States fetus is active. Denies any pain or contractions currently. TdAP injection explained. Pt verbalized understanding. given IM in right deltoid 10/12/2021@ 1525. Pt tolerated injection well. Rhogam card given and explained. Pt verbalizes understanding. Injection site without any complications. Patient discharged home ambulatory 11/01/2021 @ 1527 Electronic Signatures: Joaquina Grimaldo (PARAMJIT) (Signed 12-Oct-2021 15:40) Authored: Clinical Event Note Last Updated: 12-Oct-2021 15:40 by Joaquina Grimaldo (RN) [facility] Laboratory - Hematology and Cell countson 10-12-2021 Erythrocyte distribution width (RBC) [Ratio] 13.2 % See Below [employer] Work Phone: Comment on above: Reference Range: 11. 5 - 14.5 Hematocrit (Bld) [Volume fraction] 40.7 % See Below [facility] Work Phone: Comment on above: Reference Range: 36. 0 - 46.0 Hemoglobin (Bld) [Mass/Vol] 13.7 g/dL See Below [employer] [facility] [employer] Work Phone: Comment on above: Reference Range: 12. 0 - 16.0 MCHC (RBC) [Mass/Vol] 33.7 g/dL See Below [employer] Work Phone: Comment on above: Reference Range: 32. 0 - 36.0 MCV (RBC) [Entitic vol] 91 fL 80 - 100 [employer] Work Phone: Platelets (Bld) [#/Vol] 303 10*3/uL 150 - 450 [employer] Work Phone: RBC (Bld) [#/Vol] 4.46 {x10E12/L} See Below [employer] Work Phone: Comment on above: Reference Range: 4.0 0 - 5.20 WBC (Bld) [#/Vol] 14.7 10*3/uL above high threshold 4.4 - 11.3 [employer] Work Phone: Laboratory - Chemistry and C hemistry - challengeon 09-27-2021 Glucose [Mass/Vol] 111 mg/dL above high threshold 74 - 99 [employer] Phone: No Panel Informationon 09-27 Normal [employer] Work Phone: Tobacco Screening.on 022 Fall risk assessment a) No falls within the last year [employer] Phone: Tobacco use status [facility] b) No [employer] Work Phone: Laboratory - Hematology and Cell countson 09-21-2021 Erythrocyte distribution width (RBC) [Ratio] 12.9 % See Below [employer] Work Phone: Comment on above: Reference Range: 11. 5 - 14.5 Hematocrit (Bld) [Volume fraction] 39.6 % See Below [employer] Work Phone: Comment on above: Reference Range: 36. 0 - 46.0 Hemoglobin (Bld) [Mass/Vol] 13.2 g/dL See Below [employer] Work Phone: Comment on above: Reference Range: 12. 0 - 16.0 MCHC (RBC) [Mass/Vol] 33.4 g/dL See Below [facility] [employer] Work Phone: Comment on above: Reference Range: 32. 0 - 36.0 MCV (RBC) [Entitic vol] 92 fL 80 - 100 [place] [address] [employer] Work Phone: Platelets (Bld) [#/Vol] 303 10*3/uL 150 - 450 [place] [address] [employer] Work Phone: [phone] RBC (Bld) [#/Vol] 4.31 {x10E12/L} See Below [facility]Ins[facility] Applications[facility] [employer] Work Phone: Comment on above: Reference Range: 4.0 0 - 5.20 WBC (Bld) [#/Vol] 16.1 10*3/uL above high threshold 4.4 - 11.3 [place] [address] [employer] Work Phone: GROUP A STREP, PCRon 022 S. pyogenes Ag Ql (Throat) Not detected See Below [facility] CareInsurance Business ApplicationsDaniel [place] [address] [employer] Work Phone: Comment on above: SOURCE: ThroatRefere nce Range: Not Detected This test was performed utilizing an FDA-cleared rapid nucleic acid amplification by PCR to qualitatively detect Group A Streptococci from throat swab specimens without the need for culture confirmation of negative results. INFLUENZA A/B, COVID 2019 PC R,SYMPTOMATICon 09-14-2021 Date and time of symptom onset [id number] 1 [place] [address] [employer] Work Phone: INFLUENZA A/B, COVID 2019 PCR,SYMPTOMATIC Not detected See Below [facility] [employer] Work Phone: Comment on above: Reference Range: Not Detected.This assay is designed to detect the N, ORF1ab and/or S genes of SARS-CoV-2 via nucleic acid amplification. A Negative (NOT DETECTED) result does not preclude 2019-nCoV infection since the adequacy of sample collection and/or low viral burden may result in presence of viral nucleic acids below the clinical sensitivity of this test method. Negative (NOT DETECTED) result should not be used as the sole basis for treatment or other patient management decisions. Rather negative results should be combined with clinical observations, patient history, and epidemiological information to make patient management decisions.Fact sheet for providers: https://www.fda.gov/media/534033/downloadFact sheet for patients: https://www.fda.gov/media/442989/downloadThis test has received FDA Emergency Use Authorization (EUA) and has been verified by [facility] ([facility]). This test is only authorized for the duration of time that circumstances exist to justify the authorization of the emergency use of in vitro diagnostic tests for the detection of SARS-CoV-2 virus and/or diagnosis of COVID-19 infection under section 564(b)(1) of the Act, 21 U.S.C. 360bbb-3(b)(1), unless the authorization is terminated or revoked sooner. [facility] is certified under CLIA-88 as qualified to perform high complexity testing. Testing is performed in the [facility] laboratories located at [address] [place] [address]. Reference Range: Not Detected Respiratory virus testing is performed routinely by PCR for Influenza A/B and RSV. If Influenza and RSV PCR are negative, testing for parainfluenza 1,2,3 viruses and adenovirus is routinely performed for oncology inpatients and intensive care unit patients at [facility] and is available on request on other patients by calling Laboratory Client Services at [phone] Not Detected results do not preclude Influenza A/B or RSV infections since the adequacy of sample collection or low viral burden may impact the clinical sensitivity of this test method..The TaqManTM SARS-CoV-2, Flu A, Flu B Multiplex Assay is a multiplex, real-time RT-PCR assay for the detection of RNA from the SARS-CoV-2, Influenza A, and Influenza B viruses. A negative result does not preclude the possibility of SARS-CoV-2, Influenza A, or Influenza B infections, and should not be used as the sole basis for patient management decision as a negative result may be caused by very low levels of infection, collection errors, or testing errors. .This test was developed and its performance characteristics were determined by the Microbiology Laboratory, Department of Pathology, [place], [place]. It has not been cleared or approved by the US Food and Drug Administration; however, FDA clearance or approval is not currently required for clinical use. This test should not be regarded as investigational or for research purposes. SOURCE: Nasal, Nasop haryngealReference Range: Not Detected Respiratory virus testing is performed routinely by PCR for Influenza A/B and RSV. If Influenza and RSV PCR are negative, testing for parainfluenza 1,2,3 viruses and adenovirus is routinely performed for oncology inpatients and intensive care unit patients at [facility] and is available on request on other patients by calling Laboratory Client Services at [phone]. Not Detected results do not preclude Influenza A/B or RSV infections since the adequacy of sample collection or low viral burden may impact the clinical sensitivity of this test method. Provider Note - ED v3on Provider Note - ED v3 Provider Note: Chart Review HISTORY OF PRESENTING ILLNESS SHRUTI is a 31 year old Female and was seen by me at 14-Sep-2021 14:58. The historian is the patient. Triage Information: Most recent Vital Sign Value Date PAST MEDICAL HISTORY ALLERGIES/INTOLERANCES: No Known Allergies HEALTH HISTORY: History of HTN, gestational DM, and chronic migraines. Is currently 24 weeks . Family history: no pertinent history. Social history: current smoker (~4 cigarettes/day). Currently employed - works from home. OUTPATIENT MEDICATIONS: Home Medications Review Status for Reconciliation: Complete Med Status: Patient Currently Takes Medications Drug Name: labetalol Instructions: null Drug Name: Low Dose ASA 81 mg oral tablet Instructions: 2 tab(s) orally once a day Drug Name: 1 oral capsule Instructions: null Drug Name: Novalog Instructions: null SIGNIFICANT EVENTS: History of ACL surgery L knee. 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 Also has a stuffy nose, ear pressure, a mild, non-productive cough, and a stuffy nose (yellow/green drainage with specks of blood in it). Reports she was recently around her sisters, who both tested + for COVID-19 on Sunday. Patient denies any chest pain, wheezing/shortness of breath, rashes, and urinary symptoms. She has mild diarrhea and mild nausea, but these both seem to be improving with time. She denies any blood or mucus in stool, and denies any vomiting. Denies any dizziness/lightheadedness ; no changes in mental status. No swelling in legs. Appetite is decreased but is able to drink fluids without difficulty; denies any loss of sense of taste/smell. Reports feels like symptoms are getting a little worse since onset - reports she was also sick around [place], but sxs seemed to resolve for a few days before starting again 3 days ago. Has been taking cough drops with only temporary relief; no other yirb-bdu-jfpwzzt medications or home remedies for symptom management. Has not received the COVID-19 vaccine or ever had COVID infection, to her knowledge. Is currently ; has a history of gestational DM, HTN, and migraines. Is a current smoker. REVIEW OF SYSTEMS 10 systems reviewed negative with exception of history of present illness listed above PHYSICAL EXAMINATION General: Mildly ill-appearing, well nourished female; alert and oriented; in no acute distress. Sitting comfortably on exam table. Non-dyspneic. Eyes: Pupils equal, round and reactive to light. No conjunctival erythema; no scleral icterus. HENT: No frontal or maxillary sinus tenderness; + audible nasal congestion. Airway patent, TMs and ear canals clear bilaterally. Nasal mucosa mildly injected and edematous. Oral mucosa moist. Posterior pharynx moderately injected but without vesicles or oropharyngeal exudate aside from PND. Uvula is midline. Managing oral secretions without difficulty. Neck: Supple. Tender, mobile anterior cervical lymphadenopathy bilat. Trachea is midline. Respiratory: Respirations easy and unlabored, Breath sounds equal. Lungs are clear to auscultation with good air movement throughout; no wheezes, rhonchi, or rales. Mild, non-productive cough noted only upon request. Non-dyspneic with ambulation; able to maintain SpO2. Cardiovascular: Normal rate, Regular rhythm. Normal S1S2. No m/r/g. No pedal edema Gastrointestinal: Gravid abdomen. Abdomen otherwise soft, non-tender; no palpable masses or organomegaly. Bowel sounds normoactive. Musculoskeletal: Grossly normal; appropriate for age. Integumentary: Nellie, warm, dry, and Intact. No rashes or skin discoloration appreciated. Good skin turgor Neurologic: Alert and oriented, no gross deficits. No meningeal signs. Cognition and Speech: Oriented, Speech clear and coherent. Psychiatric: Cooperative, Appropriate mood & affect. MEDICAL DECISION MAKING Course: Worsening; stable. Impression/Plan: No red flags on exam today. I have reviewed the COVID-19 algorithm, and counseled pt on COVID-19 current recommendations. High suspicion for COVID-19 infection although reviewed other potential etiologies; strep test and nasal swab obtained (using proper PPE) for influenza/COVID-19 testing d/t symptoms and recent exposure. Pending negative Strep test, no antibiotics indicated at this point, but encouraged to begin conservative leticia (more content not included)... Normal [facility] Laboratory - Hematology and Cell countson 08-19-2021 Erythrocyte distribution width (RBC) [Ratio] 13.0 % See Below [place] [address] [employer] Work Phone: Comment on above: Reference Range: 11. 5 - 14.5 Hematocrit (Bld) [Volume fraction] 38.0 % See Below [facility] [place] [address] [address] Work Phone: Comment on above: Reference Range: 36. 0 - 46.0 Hemoglobin (Bld) [Mass/Vol] 12.9 g/dL See Below [facility] [place] [address] [employer] Work Phone: Comment on above: Reference Range: 12. 0 - 16.0 MCHC (RBC) [Mass/Vol] 33.8 g/dL See Below [place] [address] [employer] Work Phone: Comment on above: Reference Range: 32. 0 - 36.0 MCV (RBC) [Entitic vol] 92 fL 80 - 100 [facility] [place] [address] [employer] Work Phone: Platelets (Bld) [#/Vol] 298 10*3/uL 150 - 450 [employer] Work Phone: RBC (Bld) [#/Vol] 4.13 {x10E12/L} See Below Wo menAvieon-[employer] Work Phone: Comment on above: Reference Range: 4.0 0 - 5.20 WBC (Bld) [#/Vol] 14.9 10*3/uL above high threshold 4.4 - 11.3 [employer] [facility] Call[employer] Work Phone: No Panel Informationon 08-09 Normal [facility] [employer] Work Phone: Tobacco Screening.on 021 Fall risk assessment a) No falls within the last year [facility] [employer] Work Phone: Last menstrual period start date [id number] [facility] [employer] Work Phone: Tobacco use status CPHS a) Yes [facility] [employer] [place] GRAYL Work Phone: Laboratory - Chemistry and C hemistry - challengeon 07-22-2021 Second trimester quad maternal screen panel SEE BELOW [facility] Work Phone: Comment on above: Genetics test res ults are available electronically in the [facility] under Diagnostic Testing-> Genetics.Results will be sent on a separate report. No Panel Informationon 07-08 [email or web address] ?RetrieveTestByDateTime?P axeouzWV=[id number]&Date=2 05-20-2021&Time=17%3a22%3a 36%3a00&TestType=ECG&Site =14&OutputType=PDF&Ext=PD F [employer] Work Phone: Normal sinus rhythm with sinus arrhythmia [facility] [place] [address] [address] Work Phone: Borderline Abnormal [facility] [place] [address] [address] Work Phone: [phone] [facility] [address] Work Phone: [phone] [facility] [address] Work Phone: [phone] [facility] [address] Work Phone: [phone] [facility] [address] Work Phone: [phone] [facility] [place] [address] [address] Work Phone: [phone] [facility] [place] [address] [address] Work Phone: [phone] [facility] [address] Work Phone: [phone] [facility] [address] Work Phone: [phone] [facility] [address] Work Phone: [phone] [facility] [address] Work Phone: [phone] [facility] [address] Work Phone: [phone] [facility] [address] Work Phone: [phone] [facility] [address] Work Phone: [phone] [facility] [address] Work Phone: Provider Note - ED v3on 10-2 Provider Note - ED v3 Provider Note: Chart Review ED NOTES ED NOTES: Patient presents for evaluation of left knee pain mostly posteriorly that has been present for the past 3 days. She states she feels the pain is starting to radiate up into posterior thigh and calf but has been walking differently to be able to tolerate the pain while she ambulates. No otc meds used. Pain is exacerbated by sitting for long periods of time and when she gets up to walk she notices a tight sensation behind her left knee. She is 14 weeks and does still smoke some. She denies any redness, swelling, calf pain, chest pain, SOB, cough or any other constitutional symptoms or complaints. She denies any known injury no long car rides or recent travel. States she is especially concerned for DVT. No hx of DVT. HISTORY OF PRESENTING ILLNESS SHRUTI is a 31 year old Female and was seen by me at 04-Jul-2021 12:07. Triage Information: Most recent Vital Sign Value Date PAST MEDICAL HISTORY ALLERGIES/INTOLERANCES: No Known Allergies HEALTH HISTORY: No documented data. OUTPATIENT MEDICATIONS: Home Medications Review Status for Reconciliation: Complete Med Status: Patient Currently Takes Medications Drug Name: labetalol Instructions: null Drug Name: Low Dose ASA 81 mg oral tablet Instructions: 2 tab(s) orally once a day Drug Name: 1 oral capsule Instructions: null SIGNIFICANT EVENTS: No documented data. 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 MUSCULOSKELETAL: L knee with tenderness to flexion, extension, palpation of posterior knee and weight bearing of left knee. No erythema, edema. Posterior tibial and popliteal pulses 2+. NEUROLOGICAL: Alert and oriented, no focal deficits, no motor or sensory deficits. SKIN: Skin normal color for race, warm, dry and intact. No evidence of trauma. PSYCHIATRIC: Alert and oriented to person, place, time/situation. normal mood and affect. No apparent risk to self or others. CRITICAL CARE VITAL SIGNS: T PRBP SpO2O2(LPM) %FiO2 Method 04-Jul-2021 12:04:[id number]/65 96 MDM MDM/ED COURSE: Ultrasound of L lower extremity ordered and scheduled for today at 330 pm. Exam otherwise unremarkable at this time. Pt discharged with instructions to return or go to ER if symptoms worsen. Pt verbalizes understanding and agrees with tx plan. DISPOSITION Diagnosis/Annotation: ED Dx Name:Knee pain, left Code:M25.562 Disposition: discharged Type: home CONSULT CRITICAL CARE TIME Is this a critically ill patient: no Electronic Signatures for Addendum Section: Lonnie Mahan (AUTOMOTIVE TEACHER-HYDRATE CONTROL TENDER) (Signed Addendum 04-Jul-2021 16:16) Ultrasound results negative. Pt notified. Electronic Signatures: Lonnie Mahan (AUTOMOTIVE TEACHER-HYDRATE CONTROL TENDER) (Signed 04-Jul-2021 16:15) Authored: ED Notes, HPI, PMH, ROS, PE, Results/Vital Signs, MDM/ED Course, Clinical Impression, Attestation, Chart Review, Scores Last Updated: 04-Jul-2021 16:16 by Lonnie Mahan (AUTOMOTIVE TEACHER-HYDRATE CONTROL TENDER) Normal [facility] VAS LAB Venous Duplex Ultra sound DVTon 07-04-2021 VASC LAB [place] [address] [phone], Vascular Lab Report Lower Venous Duplex Ultrasound Patient Name: SHRUTI Mario Physician: [id number] Alisa Singh MD Study Date: 07/04/2021 Referring Physician: [id number] MAHAN MRN/PID: [id number] PCP: Accession/Order#: [id number] CC Report to: Date of : 1990 Technologist: [id number] Singh MD Gender: F Technologist 2: Admission Status: Outpatient Location Performed: [facility] Diagnosis/ICD: M79.605-Pain in left leg Procedure/CPT: 28717 Peripheral venous duplex scan for DVT Limited-73538 CONCLUSIONS: Right Lower Venous: Right common femoral vein is negative for deep vein thrombus. No evidence of deep vein thrombosis of the right external iliac vein. Left Lower Venous: No evidence of acute deep vein thrombus visualized in the left lower extremity. Imaging AND Doppler Findings: Left Compress Thrombus SFJ Yes None Right Compressible Thrombus Flow Iliac Yes None CFV Yes None Spontaneous/Phasic Left Compress Thrombus Flow Iliac Yes None CFV Yes None Spontaneous/Phasic PFV Yes None FV Proximal Yes None Spontaneous/Phasic FV Mid Yes None FV Distal Yes None Popliteal Yes None Spontaneous/Phasic Peroneal Yes None PTV Yes None [id number] Alisa Singh MD Final Normal [facility] VAS LAB Venous Duplex Ultra sound for DVTon 07-04-2021 VASC LAB Venous Duplex Ultrasound for DVT [facility] [place] [address] Work Phone: No Panel Informationon 06-29 SEE BELOW [facility] CareInsurance Business ApplicationsDaniel [place] [address] [address] Work Phone: Comment on above: Diagnostics with glu cose loading dose of 100 g. Reference values from [employer]. Diabetes Care 2015;38(Suppl.1):S8-S16. 91 mg/dL <140 [place] [address] [employer] Work Phone: 163 mg/dL Abnormal <155 [place] [address] [address] Work Phone: 222 mg/dL Abnormal <180 [place] [address] [address] Work Phone: 103 mg/dL Abnormal <95 [place] [address] [address] Work Phone: Cult, Urineon 06-24-2021 Bacteria identified Cx Nom (U) [place] [address] [address] Work Phone: GC + Chlamydia By Amplified Detectionon 06-24-2021 C. trachomatis rRNA ALLIE+probe Ql (Unsp spec) Negative Negative [address] Work Phone: Comment on above: The APTIMA Combo 2 a ssay is FDA-approved for Chlamydia trachomatis and Neisseria gonorrhoeae testing on female endocervical and vaginal swabs, ThinPrep liquid pap samples, male urine samples and urethral swabs. Performance characteristics for Chlamydia trachomatis and Neisseria gonorrhoeae testing on specific pui-QIY-mqbhjkky sample types (female urine samples) have been validated by [facility]. This laboratory is certified by CLIA to perform high complexity testing. Samples from all other sites are not validated for this method. N. gonorrhoeae rRNA ALLIE+probe Ql (Unsp spec) Negative Negative [place] [address] [address] Work Phone: Comment on above: SOURCE: Urine The AP KAITLYN Combo 2 assay is FDA-approved for Chlamydia trachomatis and Neisseria gonorrhoeae testing on female endocervical and vaginal swabs, ThinPrep liquid pap samples, male urine samples and urethral swabs. Performance characteristics for Chlamydia trachomatis and Neisseria gonorrhoeae testing on specific ive-VHJ-eoykuskz sample types (female urine samples) have been validated by [facility]. This laboratory is certified by CLIA to perform high complexity testing. Samples from all other sites are not validated for this method. HIV 1/2 ANTIGEN/ANTIBODY SCR EEN WITH REFLEX TO CONFIRMATIONon 06-24-2021 HIV 1+2 Ab Qn (S) Non-Reactive See Below [facility] [employer] Work Phone: Comment on above: SOURCE: Reference Ra nge: NONREACTIVE HIV Ag/Ab screen is performed using the Siemens REAC Fuel HIV Ag/Ab Combo assay which detects the presence of HIV p24 antigen as well as antibodies to HIV-1 (Group M and O) and HIV-2..No laboratory evidence of HIV infection. If acute HIV infection is suspected, consider testing for HIV RNA by PCR (viral load). Hemoglobin A1Con 06-24-2021 Glucose [Mass/Vol] 123 mg/dL [facility] [employer] Work Phone: HbA1c (Bld) [Mass fraction] 5.9 % Abnormal [facility] Work Phone: Comment on above: Diagnosis of Diabete s-Adults Non-Diabetic: < or = 5.6% Increased risk for developing diabetes: 5.7-6.4% Diagnostic of diabetes: > or = 6.5%. Monitoring of Diabetes Age (y) Therapeutic Goal (%) Adults: >18 <7.0 Pediatrics: 13-18 <7.5 7-12 <8.0 0- 6 7.5-8.5 [employer]. Diabetes Care 33(S1), Sep 2009. Hepatitis B Surface Antigeno n 06-24-2021 Hepatitis B Surface Antigen Non-Reactive See Below [facility] [employer] Work Phone: Comment on above: SOURCE: Reference Ra nge: NONREACTIVE Biotin interference may cause falsely decreased results. Patients taking a Biotin dose of up to 5 mg/day should refrain from taking Biotin for 24 hours before sample collection. Providers may contact their local laboratory for further information. SOURCE: Reference Ra nge: NONREACTIVE Results from patients taking biotin supplements or receiving high-dose biotin therapy should be interpreted with caution due to possible interference with this test. Providers may contact their local laboratory for further information. Laboratory - Blood bankon ABO group Nom (Bld) Canceled [facility] Work Phone: Blood group antibody screen Ql Canceled [facility] Work Phone: Rh immune globulin screen (Bld) [Interp] Canceled [facility] Call[employer] Work Phone: ABO group Nom (Bld) A [facility] CallmyName Work Phone: Blood group antibody screen Ql Negative [facility] CallmyName Work Phone: Rh immune globulin screen (Bld) [Interp] Positive [facility] CareInsurance Business ApplicationsAt[facility] CallmyName Work Phone: Laboratory - Chemistry and C hemistry - challengeon 06-24-2021 Albumin BCP dye [Mass/Vol] 3.9 g/dL 3.4 - 5.0 [facility] Call[facility]Name Work Phone: ALP [Catalytic activity/Vol] 43 U/L 33 - 110 [facility] [employer] Work Phone: ALT With P-5'-P [Catalytic activity/Vol] 8 U/L 7 - 45 [place] [address] [employer] Work Phone: Comment on above: Patients treated wit h Sulfasalazine may generate falsely decreased results for ALT. Anion gap [Moles/Vol] 9 mmol/L below low threshold 10 - 20 [facility] [employer] Work Phone: AST With P-5'-P [Catalytic activity/Vol] 14 U/L 9 - 39 [facility] CareInsurance Business ApplicationsAt[facility] [employer] Work Phone: Bilirubin [Mass/Vol] 0.4 mg/dL 0.0 - 1.2 [facility] Work Phone: Calcium [Mass/Vol] 8.9 mg/dL 8.6 - 10.3 [facility] [employer] Work Phone: Chloride [Moles/Vol] 106 mmol/L 98 - 107 [facility] [employer] Work Phone: CO2 [Moles/Vol] 26 mmol/L 21 - 32 [facility] -[employer] [facility] [employer] Work Phone: Creatinine [Mass/Vol] 0.67 mg/dL See Below [facility] [employer] Work Phone: Comment on above: Reference Range: 0.5 0 - 1.05 Glucose [Mass/Vol] 71 mg/dL below low threshold 74 - 99 [facility] [employer] Work Phone: [phone] Potassium [Moles/Vol] 4.1 mmol/L 3.5 - 5.3 [facility] [facility] [employer] Work Phone: Protein [Mass/Vol] 6.5 g/dL 6.4 - 8.2 [facility] [employer] Work Phone: Sodium [Moles/Vol] 137 mmol/L 136 - 145 [facility] [facility] [employer] Work Phone: Urea nitrogen [Mass/Vol] 7 mg/dL 6 - 23 [facility] [employer] Work Phone: Laboratory - Cytologyon 06-10 Cytology report Cyto stain.thin prep Doc (Cvx/Vag) [facility] [employer] Work Phone: Laboratory - Hematology and Cell countson 06-24-2021 Erythrocyte distribution width (RBC) [Ratio] 12.7 % See Below [facility] [employer] Work Phone: Comment on above: Reference Range: 11. 5 - 14.5 Hematocrit (Bld) [Volume fraction] 42.8 % See Below [employer] Work Phone: Comment on above: Reference Range: 36. 0 - 46.0 Hemoglobin (Bld) [Mass/Vol] 14.4 g/dL See Below [employer] Work Phone: Comment on above: Reference Range: 12. 0 - 16.0 MCHC (RBC) [Mass/Vol] 33.6 g/dL See Below [employer] Work Phone: Comment on above: Reference Range: 32. 0 - 36.0 MCV (RBC) [Entitic vol] 93 fL 80 - 100 [employer] Work Phone: Platelets (Bld) [#/Vol] 302 10*3/uL 150 - 450 [employer] [facility] Call[employer]Name Work Phone: RBC (Bld) [#/Vol] 4.60 {x10E12/L} See Below [employer] Work Phone: Comment on above: Reference Range: 4.0 0 - 5.20 WBC (Bld) [#/Vol] 12.9 10*3/uL above high threshold 4.4 - 11.3 [employer] Work Phone: No Panel Informationon 06-24 >60 >60 [employer] Work Phone: Comment on above: CALCULATIONS OF LENORE MATED GFR ARE PERFORMED USING THE MDRD STUDY EQUATION FOR THE IDMS-TRACEABLE CREATININE METHODS. CLIN CHEM 2007;53:766-72 NONE [employer] Work Phone: Rubella IgG Antibodyon 06-24 Rubella virus IgG IA Ql Positive [employer] Work Phone: Comment on above: SOURCE: INTERPRETATI VE COMMENT NEGATIVE: No IgG antibodies specific to Rubella detected. It is likely that the patient has not had a previous exposure to Rubella through infection or vaccination. Alternatively, the patient may have been exposed to Rubella but a failure to respond may indicate immunodeficiency. EQUIVOCAL:Equivocal results; obtain additional sample for retesting. POSITIVE: IgG antibody to Rubella detected. This may indicate that the patient was exposed to Rubella through infection or vaccination.The interpretation of serological tests should take into accountthe immunological status of the patient. Test results forpatients, including immunocompromised patients, neonates, andpediatric patients, reflect their capacity to respondimmunologically to the virus as well as their exposure to thepathogen. Patients treated with IVIG may demonstrate alteredresults in serological assays. SYPHILIS SCREENING WITH REFL EXon 06-24-2021 T. pallidum IgG+IgM IA Ql (S) Non-Reactive See Below [employer] Work Phone: Comment on above: SOURCE: Reference Ra nge: NONREACTIVENo significant level of Treponema pallidum antibody detected. Repeat testing in 2 to 4 weeks may be considered if early infection or incubating syphilis infection is suspected. TYPE + SCREENon 06-24-2021 ABO TYPE A Normal [facility] Comment on above: Performed By: #### T +S #### [address] [address] RH TYPE Positive Normal [facility] Comment on above: Performed By: #### T +S #### [address] [address] Total Protein, Urine Spoton 06-24-2021 Creatinine (U) [Mass/Vol] 186.0 mg/dL See Below [employer] Work Phone: Comment on above: Reference Range: 20. 0 - 320.0 Protein (U) [Mass/Vol] 17 mg/dL 5 - 24 [facility] Work Phone: Protein/Creatinine (U) [Ratio] 0.09 {mg/mg_Creat} See Below [facility] Work Phone: Comment on above: Reference Range: 0.0 0 - 0.17 IO HCG, Urine Test on 05-27-2021 HCG ( test) Ql (U) Positive [facility] [employer] Work Phone: LMPon 05-27-2021 Last menstrual period start date 26Mar2021 [facility] [employer] Work Phone: Final Surgical Pathology Rep radha 03-10-2020 Final Surgical Pathology Report . Pathology Reports Accession: Collected Date/Time: Received Date/Time: Pathologist: [id number] 03/08/2020 08:32 EDT 03/09/2020 08:32 EDT MD EROS MARIA Final Surgical Pathology Report DIAGNOSIS: A) CERVIX, 4, 6 O'CLOCK, BIOPSY - CONDYLOMA AND MILD SQUAMOUS DYSPLASIA. IMMUNOPEROXIDASE STAIN FOR P16 IS NEGATIVE. B) ENDOCERVIX, CURETTAGE - MUCOUS AND FRAGMENTS OF ENDOCERVICAL TISSUE WITH NO SPECIFIC PATHOLOGIC CHANGES. COMMENT: [facility] - [id number] CLINICAL INFORMATION: LOW GRADE SQUAMOUS INTRAEPITHELIAL LESION ON CYTOLOGIC SMEAR OF CERVIX SPECIMEN: A CERVIX BIOPSY @ 4 O'CLOCK AND 6 O'CLOCK B ENDOCERVICAL CURETTINGS GROSS DESCRIPTION: A. Received in formalin, labeled with the patient's name, Case #[id number], and cervix biopsy 4 and 6:00 multiple zavala-white tissue fragments aggregating to 1 x 0.3 x 0.1 cm TS -1. B. Received in formalin labeled endocervix curettings specimen is received in a tissue collection brush and consists of multiple minute zavala tissue fragments aggregating to less than 0.1 x less than 0.1 x less than 0.1 cm. TS -1. Dictated by LEILA BALLESTEROS MICROSCOPIC DESCRIPTION: Slides reviewed. Electronically Signed by Pathology Report verified by [facility] Electronically signed by EROS MARIA MD Sign out Date: 03/10/2020 16:10 Performing Lab: [facility], [address] [place] [address] ([place]) Comment on above: Performed By: #### S PFR #### [place] [address] Internal Specialist Cytology Reporton 2019 Internal Specialist Cytology Report . Pathology Reports Accession: Collected Date/Time: Received Date/Time: Pathologist: [id number] 01/28/2020 14:47 EDT 01/29/2020 18:00 EDT DO ARMANDO ALONSO Internal Specialist Cytology Report SPECIMEN: Specimen Description: Liquid Prep Reflex ASCUS Specimen: Cervical/Endocervical Screening or Diagnostic: Screening RELEVANT HISTORY: LMP: 12/20/2019 Control: Yes [id number] SPECIMEN ADEQUACY: SATISFACTORY FOR EVALUATION ENDOCERVICAL/TRANSFORMATI ONAL ZONE COMPONENT PRESENT INTERPRETATION/RESULTS: LOW GRADE SQUAMOUS INTRAEPITHELIAL LESION COMMENT: This Pap Test was successfully processed and evaluated with the assistance of the [employer] Test Imaging System. Electronically Signed by Pathology report verified by [facility] Screened by: SO MES Electronically signed by ARMANDO ALONSO DO Sign-Out Date: 02/06/2020 15:29 Performing Lab: [address] Disclaimer The Pap test is a screening test for cervical cancer. As evidenced by published data, it is subject to both inherent false negative and false positive results. Your patient's results should be interpreted in context with pertinent clinical history including gynecological examination. Normal [facility] (ID) Comment on above: Performed By: #### G YCR #### [place] [address] CTPCRon 01-30-2020 C. trachomatis Interp Normal See CT Interp N [facility] ([place]) Comment on above: Result Comment: C. t rachomatis DNA not detected. Specimen is presumptive negative for C. trachomatis. A negative result does not preclude C. trachomatis infection because results depend on adequate specimen collection, absence of inhibitors, and sufficient DNA to be detected. See CT Interp N Performed By: #### C TPCR, NGPCR1 #### [place] [address] C.trachomatis PCR Negative Normal Negative [facility] ([place]) Comment on above: Result Comment: Mole cular (PCR) assay performed on the Christopher Ronn 4800 system. Performed By: #### C TPCR, NGPCR1 #### [place] [address] Chlam Source Cervix Normal [facility] ([place]) Comment on above: Performed By: #### C TPCR, NGPCR1 #### [facility] [address] [place] [address] NGPCRon 01-30-2020 GC PCR Source Cervix Normal [facility] ([place]) Comment on above: Performed By: #### C TPCR, NGPCR1 #### [facility] [address] [place] [address] N. gonorrhoeae (PCR) Negative Normal Negative [facility] ([place]) Comment on above: Result Comment: Mole cular (PCR) assay performed on the Christopher [employer]n 4800 System. Performed By: #### C TPCR, NGPCR1 #### [facility] [address] [place] [address] N. gonorrhoeae Interp Normal See NG Interp N [facility] (ID) Comment on above: Result Comment: N. g onorrhoeae DNA not detected. Specimen is presumptive negative for N. gonorrhoeae. A negative result does not preclude Neisseria gonorrhoeae infection because results depend on adequate specimen collection, absence of inhibitors, and sufficient DNA to be detected. See NG Interp N Performed By: #### C TPCR, NGPCR1 #### [facility] [address] [place] [address] XR KNEE LEFT 2 VIEWS (STANDA RD)on 12-31-2018 XR KNEE LEFT 2 VIEWS (STANDARD) EXAMINATION: XR KNEE LEFT 2 VIEWS (STANDARD) HISTORY: ORDERING SYSTEM PROVIDED HISTORY: Pain, TECHNOLOGIST PROVIDED HISTORY: Reason for exam: post-op f/u Illness/Other Cancer History: no Surgery, RadiationHistory: n/a Encounter Type: Subsequent/Follow-up Additional signs and symptoms: post-op f/u ORDERING SYSTEM PROVIDED DIAGNOSIS CODES: R52 Pain COMPARISON: None. FINDINGS: Two views. Postoperative changes of ACL reconstruction. No acute fracture. Joint alignment is anatomic.Joint spaces are preserved. Small joint effusion. Soft tissues are within normal limits. IMPRESSION: Postoperative changes of ACL reconstruction. ST/lab Workstation ID: Unknown Dictated by: JOSE DANIEL BECERRA on SunDec 31, 2018 4:54:15 PM EDT Transcribed by: WHITLEY BAXTER on SunDec 31, 2018 4:55:00 PM EDT Finalized by: JOSE DANIEL BECERRA on SunDec 31, 2018 8:24:51 PM EDT Normal [facility] Comment on above: Order Comment: Reaso n for exam?:post-op f/u Injury/Trauma or Illness?:Illness/Other How long have you had these symptoms (acute/chronic)?:Acute History of cancer?:no Surgeries, chemotherapy, or radiation?:n/a Type of Exam?:Subsequent/Follow-up Additional signs and symptoms?:post-op f/u BhCG Qualon 12-16-2018 HCG.beta subunit Qn Negative Normal Negative [facility] Comment on above: Performed By: #### 2 [id number] #### [facility] Chemistry Manual Subsection [address] [place] [address] Auto Diffon 12-04-2018 Basophils #/vol (Bld) 0.0 E3/mcL Normal 0.0-0.2 [facility] Comment on above: Order Comment: Order Added by Discern Expert. Performed By: #### 2 [id number] #### [facility] [address] [place] [address] Basophils/100 WBC (Bld) 0.5 % Normal 0.0-2.0 [facility] Comment on above: Order Comment: Order Added by Discern Expert. Performed By: #### 2 [id number] #### [facility] [address] [place] [address] Eos Absolute 0.1 E3/mcL Normal 0.0-0.7 [facility] Comment on above: Order Comment: Order Added by Discern Expert. Performed By: #### 2 [id number] #### [facility] [address] [place] [address] Eosinophils/100 WBC (Bld) 1.7 % Normal 0.0-11.0 [facility] Comment on above: Order Comment: Order Added by Discern Expert. Performed By: #### 2 [id number] #### [facility] [address] [place] [address] Lymphocytes #/vol (Bld) 1.9 E3/mcL Normal 1.2-3.4 [facility] Comment on above: Order Comment: Order Added by Discern Expert. Performed By: #### 2 [id number] #### [facility] [address] [place] [address] Lymphocytes/100 WBC (Bld) 22.8 % Normal 20.0-55.0 [facility] Comment on above: Order Comment: Order Added by Discern Expert. Performed By: #### 2 [id number] #### [facility] [address] [place] [address] Rincon Absolute 0.9 E3/mcL High 0.0-0.7 [facility] Comment on above: Order Comment: Order Added by Discern Expert. Performed By: #### 2 [id number] #### [facility] [address] [place] [address] Monocytes/100 WBC (Bld) 10.7 % High 0.0-10.0 [facility] Comment on above: Order Comment: Order Added by Discern Expert. Performed By: #### 2 [id number] #### [facility] [address] [place] [address] Neutro Absolute 5.5 E3/mcL Normal 1.4-6.5 [facility] Comment on above: Order Comment: Order Added by Discern Expert. Performed By: #### 2 [id number] #### [facility] [address] [place] [address] Neutro Auto 64.3 % Normal 37.0-75.0 [facility] Comment on above: Order Comment: Order Added by Discern Expert. Performed By: #### 2 [id number] #### [facility] [address] [place] [address] CBC w/ Auto Diffon 9 Erythrocyte distribution width Ratio (RBC) 13.0 % Normal 11.5-14.5 [facility] Comment on above: Performed By: #### 2 [id number] #### [facility] [address] [place] [address] Hematocrit Volume Fraction (Bld) 51.3 % High 36.0-48.0 [facility] Comment on above: Performed By: #### 2 [id number] #### [facility] [address] [place] [address] Hemoglobin mass conc (Bld) 17.4 g/dL High 12.0-16.0 [facility] Comment on above: Performed By: #### 2 [id number] #### [facility] [address] [place] [id number] MCH Entitic mass (RBC) 32.2 pg High 27.0-31.0 [facility] Comment on above: Performed By: #### 2 [id number] #### [facility] [address] [place] [id number] MCHC mass conc (RBC) 33.9 g/dL Normal 33.0-37.0 [facility] Comment on above: Performed By: #### 2 [id number] #### [facility] [address] [place] [id number] MCV Entitic volume (RBC) 95.2 fL Normal 78.0-100.0 [facility] Comment on above: Performed By: #### 2 [id number] #### [facility] [address] [place] [address] Platelet mean volume Entitic volume (Bld) 8.4 fL Normal 7.4-11.0 [facility] Comment on above: Performed By: #### 2 [id number] #### [facility] [address] [place] [address] Platelets #/vol (Bld) 270 E3/mcL Normal 130-400 [facility] Comment on above: Performed By: #### 2 [id number] #### [facility] [address] [place] [address] RBC #/vol (Bld) 5.39 E6/mcL Normal 3.90-5.40 [facility] Comment on above: Performed By: #### 2 [id number] #### [facility] [address] [place] [id number] WBC #/vol (Bld) 8.5 E3/mcL Normal 3.6-11.0 [facility] Comment on above: Performed By: #### 2 [id number] #### [facility] [address] [place] [id number] MRI Knee w/o Contrast Lefton 11-01-2018 MRI Knee w/o Contrast Left Exam Date/Time: 10/31/2018 17:14 EST Reason for Exam: LEFT KNEE PAIN AND SWELLING Report STUDY: MRI of the left knee without contrast dated 10/31/2018. INDICATION: Knee pain. Injury. COMPARISON: None. ACCESSION NUMBER(S): [id number] ORDERING CLINICIAN: Canelo Beltre TECHNIQUE: Multiplanar multisequence MRI of the left knee was performed without intravenous contrast. FINDINGS: LIMITATIONS: Exam is limited due to patient motion with gaps in visualization of the knee. LIGAMENTS AND TENDONS: There is a partial tear of the anterior cruciate ligament, with diff miniature of appearance to the ligament substance. The posterior cruciate ligament is intact. The medial and fibular collateral ligaments are intact. The popliteus and biceps femoris tendons, iliotibial band, and extensor mechanism are intact. MENISCI: There is a horizontal tear of the posterior horn into the body of the medial meniscus extending to the tibial surface. The lateral meniscus is intact. JOINTS: The hyaline articular cartilage of the femorotibial joint spaces is intact. The hyaline articular cartilage of the patellofemoral joint space is intact. There is a small volume joint effusion. OSSEOUS STRUCTURES: No fracture or dislocation is evident. SOFT TISSUES: No significant volume of fluid is evident in a popliteal cyst. Exam Date/Time: 10/31/2018 17:14 EST Report IMPRESSION: 1. Partial tear of the anterior cruciate ligament. 2. Medial meniscus tear. FINAL REPORT Dictated: 11/01/2018 1:21 pm Eros Miner MD Signed (Electronic Signature): 11/01/2018 1:21 pm Signed by: Eros Miner MD Technologist: [facility] XR Knee Complete Left XR Knee Complete Left Exam Date/Time: 08/11/2018 12:24 EST Reason for Exam: knee vs dog;Pain, Traumatic Report STUDY: XR Knee Complete Left; 08/11/2018 12:24 pm INDICATION: Pain, Traumatic. COMPARISON: None. ACCESSION NUMBER(S): [id number] ORDERING CLINICIAN: Dionicio Mascorro FINDINGS: Bone density is normal. Soft tissues are unremarkable. No focal lytic or sclerotic lesions. No acute fractures or dislocations. IMPRESSION: No acute fractures or dislocations. FINAL REPORT Dictated: 08/11/2018 12:32 pm Jeramy Brooks MD Signed (Electronic Signature): 08/11/2018 12:32 pm Signed by: Jeramy Brooks MD Technologist: [facility] Vital Signs Date Time Vital Sign Value Performing Clinician Facility 05-20-2025 13:54-0400 Body height 165 cm Enrique Dyer MD Work Phone: [facility] 05-20-2025 13:54-0400 Body height 165.1 cm Enrique Dyer MD Work Phone: [facility] 05-20-2025 13:54-0400 Body mass index (BMI) [Ratio] 25.89 kg/m2 Enrique Dyer MD Work Phone: [facility] 05-20-2025 13:54-0400 Body weight 70 kg Enrique Dyer MD Work Phone: [facility] 05-20-2025 13:54-0400 Body weight 70.31 kg Enrique Dyer MD Work Phone: [facility] 05-20-2025 13:54-0400 Diastolic blood pressure 82 mm[Hg] Enrique Dyre MD Work Phone: [facility] 05-20-2025 13:54-0400 Diastolic blood pressure 92 mm[Hg] Enrique Dyer MD Work Phone: [facility] 05-20-2025 13:54-0400 HGHTCHNVIS Enrique Dyer MD Work Phone: [facility] 05-20-2025 13:54-0400 Systolic blood pressure 139 mm[Hg] Enrique Dyer MD Work Phone: [facility] 05-20-2025 13:54-0400 Systolic blood pressure 142 mm[Hg] Enrique Dyer MD Work Phone: [facility] 05-20-2025 13:54-0400 VITALSDONE Enrique Dyer MD Work Phone: [facility] 02-25-2025 16:20-0400 Body height 163.8 cm Margarita Mosley MD Work Phone: [facility] 02-25-2025 16:20-0400 Body mass index (BMI) [Ratio] 27.21 kg/m2 Margarita Mosley MD Work Phone: [facility] 02-25-2025 16:20-0400 Body temperature 97.59 [degF] Margarita Mosley MD Work Phone: [facility] 02-25-2025 16:20-0400 Body weight 73.03 kg Margarita Mosley MD Work Phone: [facility] 02-25-2025 16:20-0400 Diastolic blood pressure 72 mm[Hg] Margarita Mosley MD Work Phone: [facility] 02-25-2025 16:20-0400 Heart rate 100 /min Margarita Mosley MD Work Phone: [facility] 02-25-2025 16:20-0400 Respiratory rate 18 /min Margarita Mosley MD Work Phone: [facility] 02-25-2025 16:20-0400 SaO2% (BldA) [Mass fraction] 98 % Margarita Mosley MD Work Phone: [facility] 02-25-2025 16:20-0400 Systolic blood pressure 122 mm[Hg] Margarita Mosley MD Work Phone: [facility] 10-06-2024 10:30-0500 Body height 163.8 cm Margarita Mosley MD Work Phone: [facility] 10-06-2024 10:30-0500 Body mass index (BMI) [Ratio] 26.5 kg/m2 Margarita Mosley MD Work Phone: [facility] 10-06-2024 10:30-0500 Body temperature 97.3 [degF] Margarita Mosley MD Work Phone: [facility] 10-06-2024 10:30-0500 Body weight 71.12 kg Margarita Mosley MD Work Phone: [facility] 10-06-2024 10:30-0500 Diastolic blood pressure 84 mm[Hg] Margarita Mosley MD Work Phone: [facility] 10-06-2024 10:30-0500 Heart rate 94 /min Margarita Mosley MD Work Phone: [facility] 10-06-2024 10:30-0500 Respiratory rate 18 /min Margarita Mosley MD Work Phone: [facility] 10-06-2024 10:30-0500 SaO2% (BldA) [Mass fraction] 96 % Margarita Mosley MD Work Phone: [facility] 10-06-2024 10:30-0500 Systolic blood pressure 136 mm[Hg] Margarita Mosley MD Work Phone: [facility] 10-01-2024 11:22-0500 Body temperature 97.7 [degF] Dr. Margarita Mosley MD Work Phone: [facility] 10-01-2024 11:22-0500 Diastolic blood pressure 99 mm[Hg] Dr. Margarita Mosley MD Work Phone: [facility] 10-01-2024 11:22-0500 Heart rate 70 /min Dr. Margarita Mosley MD Work Phone: [facility] 10-01-2024 11:22-0500 Respiratory rate 18 /min Dr. Margarita Mosley MD Work Phone: [facility] 10-01-2024 11:22-0500 SaO2% (BldA) [Mass fraction] 99 % Dr. Margarita Mosley MD Work Phone: [facility] 10-01-2024 11:22-0500 Systolic blood pressure 150 mm[Hg] Dr. Margarita Mosley MD Work Phone: [facility] 10-01-2024 09:04-0500 Body height 165.[address] Margarita Mosley MD Work Phone: [facility] 10-01-2024 09:04-0500 Body mass index (BMI) [Ratio] 26.1 kg/m2 Dr. Margarita Mosley MD Work Phone: [facility] 10-01-2024 09:04-0500 Body weight 71.[address] Margarita Mosley MD Work Phone: [facility] 08-06-2024 14:03-0500 Body height 163.8 cm Margarita Mosley MD Work Phone: [facility] 08-06-2024 14:03-0500 Body mass index (BMI) [Ratio] 26.53 kg/m2 Margarita Mosley MD Work Phone: [facility] 08-06-2024 14:03-0500 Body temperature 96.91 [degF] Margarita Mosley MD Work Phone: [facility] 08-06-2024 14:03-0500 Body weight 71.22 kg Margarita Mosley MD Work Phone: [facility] 08-06-2024 14:03-0500 Diastolic blood pressure 82 mm[Hg] Margarita Mosley MD Work Phone: [facility] 08-06-2024 14:03-0500 Heart rate 96 /min Margarita Mosley MD Work Phone: [facility] 08-06-2024 14:03-0500 Respiratory rate 18 /min Margarita Mosley MD Work Phone: [facility] 08-06-2024 14:03-0500 SaO2% (BldA) [Mass fraction] 98 % Margarita Mosley MD Work Phone: [facility] 08-06-2024 14:03-0500 Systolic blood pressure 118 mm[Hg] Margarita Mosley MD Work Phone: [facility] 02-21-2024 15:28-0400 Body mass index (BMI) [Ratio] 28.39 kg/m2 Chris Law MD Work Phone: [facility] 02-21-2024 15:28-0400 Body weight 76.2 kg Chris Law MD Work Phone: [facility] 02-21-2024 15:28-0400 Diastolic blood pressure 62 mm[Hg] Chris Law MD Work Phone: [facility] 02-21-2024 15:28-0400 Systolic blood pressure 126 mm[Hg] Chris Law MD Work Phone: [facility] 01-10-2024 15:27-0400 Body mass index (BMI) [Ratio] 29.44 kg/m2 Chris Law MD Work Phone: [facility] 01-10-2024 15:27-0400 Body weight 79.02 kg Chris Law MD Work Phone: [facility] 01-10-2024 15:27-0400 Diastolic blood pressure 70 mm[Hg] Chris Law MD Work Phone: [facility] 01-10-2024 15:27-0400 Systolic blood pressure 118 mm[Hg] Chris Law MD Work Phone: [facility] 12-02-2023 09:30-0400 Body temperature 97.8 [degF] [facility] 12-02-2023 09:30-0400 Diastolic blood pressure 71 mm[Hg] [facility] 12-02-2023 09:30-0400 Heart rate 67 /min [facility] 12-02-2023 09:30-0400 Respiratory rate 18 /min [facility] 12-02-2023 09:30-0400 SaO2% (BldA) [Mass fraction] 95 % [facility] 12-02-2023 09:30-0400 Systolic blood pressure 110 mm[Hg] [facility] 11-30-2023 05:36-0400 Body height 165.1 cm [facility] 11-30-2023 05:36-0400 Body mass index (BMI) [Ratio] 31.6 kg/m2 [facility] 11-30-2023 05:36-0400 Body weight 86.1 kg [facility] 11-26-2023 14:39-0400 Body weight 83.92 kg Mayelin Villalba AUTOMOTIVE TE[employer]ER[employer] Work Phone: [facility] 11-26-2023 14:39-0400 Diastolic blood pressure 78 mm[Hg] Mayelin Villalba AUTOMOTIVE TE[employer] Work Phone: [facility] 11-26-2023 14:39-0400 Systolic blood pressure 135 mm[Hg] Mayelin Villalba AUTOMOTIVE TEACHER[employer]CN[employer] Work Phone: [facility] 11-22-2023 14:13-0400 Body weight 83.92 kg Chris Law MD Work Phone: [facility] 11-22-2023 14:13-0400 Diastolic blood pressure 78 mm[Hg] Chris Law MD Work Phone: [facility] 11-22-2023 14:13-0400 Systolic blood pressure 120 mm[Hg] Chris Law MD Work Phone: [facility] 11-19-2023 14:29-0400 Body weight 84.28 kg Rebekah Bagley MD Work Phone: [facility] 11-19-2023 14:29-0400 Diastolic blood pressure 79 mm[Hg] Rebekah Bagley MD Work Phone: [facility] 11-19-2023 14:29-0400 Systolic blood pressure 129 mm[Hg] Rebekah Bagley MD Work Phone: [facility] 11-06-2023 15:02-0500 Diastolic blood pressure 82 mm[Hg] Alana Nava MD Work Phone: [facility] 11-06-2023 15:02-0500 Systolic blood pressure 128 mm[Hg] Alana Nava MD Work Phone: [facility] 11-01-2023 14:05-0500 Body weight 83.92 kg Annika Lehman MD Work Phone: [facility] 11-01-2023 14:05-0500 Diastolic blood pressure 83 mm[Hg] Annika Lehman MD Work Phone: [facility] 11-01-2023 14:05-0500 Systolic blood pressure 125 mm[Hg] Annika Lehman MD Work Phone: [facility] 10-29-2023 13:00-0500 Body height 163.8 cm Angelika Andrews [facility] 10-29-2023 13:00-0500 Body weight 83.92 kg Angelika Darryl ALLRED [facility] 10-26-2023 10:15-0500 Body weight 83.92 kg Annika Lehman MD Work Phone: [facility] 10-26-2023 10:15-0500 Diastolic blood pressure 70 mm[Hg] Annika Lehman MD Work Phone: [facility] 10-26-2023 10:15-0500 Systolic blood pressure 118 mm[Hg] Annika Lehman MD Work Phone: [facility] 08-24-2023 15:09-0500 Body weight 81.83 kg Mayelin Plotts AUTOMOTIVE TEACHER[employer]CNM Work Phone: [facility] 08-24-2023 15:09-0500 Diastolic blood pressure 68 mm[Hg] Mayelin Plotts AUTOMOTIVE TEACHER[employer]CNM Work Phone: [facility] 08-24-2023 15:09-0500 Systolic blood pressure 110 mm[Hg] Mayelin Plotts AUTOMOTIVE TEACHER.CNM Work Phone: [facility] 07-27-2023 14:43-0500 Body weight 75.75 kg Alana Nava MD Work Phone: [facility] 07-27-2023 14:43-0500 Diastolic blood pressure 76 mm[Hg] Alana Nava MD Work Phone: [facility] 07-27-2023 14:43-0500 Systolic blood pressure 122 mm[Hg] Alana Nava MD Work Phone: [facility] 06-29-2023 16:18-0400 Body weight 75.75 kg Manjula Whittaker MD Work Phone: [facility] 06-29-2023 16:18-0400 Diastolic blood pressure 64 mm[Hg] Manjula Whittaker MD Work Phone: [facility] 06-29-2023 16:18-0400 Systolic blood pressure 116 mm[Hg] Manjula Whittaker MD Work Phone: [facility] 05-31-2023 15:29-0400 Body weight 75.75 kg Alana Nava MD Work Phone: [facility] 05-31-2023 15:29-0400 Diastolic blood pressure 66 mm[Hg] Alana Nava MD Work Phone: [facility] 05-31-2023 15:29-0400 Systolic blood pressure 118 mm[Hg] Alana Nava MD Work Phone: [facility] 05-16-2023 13:14-0400 Body height 163.8 cm Maranda Engle APRN.HYDRATE CONTROL TENDER Work Phone: [facility] 05-16-2023 13:14-0400 Body weight 76.66 kg Maranda Engle APRN.[employer]DRATE CONTR[employer] TENDER Work Phone: [facility] 05-16-2023 13:14-0400 Diastolic blood pressure 80 mm[Hg] Maranda Engle APRN.HYDRATE CONTR[employer] TENDER Work Phone: [facility] 05-16-2023 13:14-0400 Systolic blood pressure 120 mm[Hg] Maranda Engle APRN.HYDRATE CONTROL TENDER Work Phone: [facility] 04-29-2023 13:37-0400 Diastolic blood pressure 79 mm[Hg] [facility] 04-29-2023 13:37-0400 Heart rate 64 /min [facility] 04-29-2023 13:37-0400 Respiratory rate 18 /min [facility] 04-29-2023 13:37-0400 SaO2% (BldA) [Mass fraction] 99 % [facility] 08-20-2023 13:37-0400 Systolic blood pressure 122 mm[Hg] [facility] 04-29-2023 10:50-0400 Body height 162.56 cm [facility] 04-29-2023 10:50-0400 Body mass index (BMI) [Ratio] 28.3 kg/m2 [facility] 04-29-2023 10:50-0400 Body temperature 97.4 [degF] [facility] 04-29-2023 10:50-0400 Body weight 74.84 kg [facility] 04-25-2023 17:06-0400 Body height 164 cm Margarita Mosley MD Work Phone: [facility] 04-25-2023 17:06-0400 Body temperature 97.9 [degF] Margarita Mosley MD Work Phone: [facility] 04-25-2023 17:06-0400 Body weight 79.83 kg Margarita Mosley MD Work Phone: [facility] 04-25-2023 17:06-0400 Diastolic blood pressure 74 mm[Hg] Margarita Mosley MD Work Phone: [facility] 04-25-2023 17:06-0400 Heart rate 87 /min Margarita Mosley MD Work Phone: [facility] 04-25-2023 17:06-0400 Respiratory rate 16 /min Margarita Mosley MD Work Phone: [facility] 04-25-2023 17:06-0400 SaO2% (BldA) [Mass fraction] 98 % Margarita Mosley MD Work Phone: [facility] 04-25-2023 17:06-0400 Systolic blood pressure 130 mm[Hg] Margarita Mosley MD Work Phone: [facility] 03-20-2023 14:25-0400 Body height 162.56 cm Margarita Mosley Work Phone: [address] Work Phone: 03-20-2023 14:25-0400 Body mass index (BMI) [Ratio] 28.42 kg/m2 Margarita Mosley Work Phone: [place] [address] [address] Work Phone: 03-20-2023 14:25-0400 Body surface area Derived from formula 1.81 m2 Margarita Mosley Work Phone: [place] [address] [address] Work Phone: 03-20-2023 14:25-0400 Body weight 75.1 kg Margarita Mosley Work Phone: [place] [address] [address] Work Phone: 03-20-2023 14:25-0400 Diastolic blood pressure 70 mm[Hg] Margarita Mosley Work Phone: [place] [address] [address] Work Phone: 03-20-2023 14:25-0400 Systolic blood pressure 132 mm[Hg] Margarita Mosley Work Phone: [place] [address] [address] Work Phone: 11-13-2022 10:25-0500 Body height 164 cm Margarita Mosley MD Work Phone: [facility] 11-13-2022 10:25-0500 Body temperature 96.91 [degF] Margarita Mosley MD Work Phone: [facility] 11-13-2022 10:25-0500 Body weight 78.02 kg Margarita Mosley MD Work Phone: [facility] 11-13-2022 10:25-0500 Diastolic blood pressure 82 mm[Hg] Margarita Mosley MD Work Phone: [facility] 11-13-2022 10:25-0500 Heart rate 75 /min Margarita Mosley MD Work Phone: [facility] 11-13-2022 10:25-0500 Respiratory rate 16 /min Margarita Mosley MD Work Phone: [facility] 03-06-2023 10:25-0500 SaO2% (BldA) [Mass fraction] 96 % Margarita Mosley MD Work Phone: [facility] 11-13-2022 10:25-0500 Systolic blood pressure 138 mm[Hg] Margarita Mosley MD Work Phone: [facility] 03-20-2022 11:08-0400 Body height 162.56 cm Margaritaailin Mosley Work Phone: [place] [address] [address] Work Phone: 03-20-2022 11:08-0400 Body mass index (BMI) [Ratio] 28.99 kg/m2 Margarita Mosley Work Phone: [place] [address] [address] Work Phone: 03-20-2022 11:08-0400 Body surface area Derived from formula 1.82 m2 Margarita Mosley Work Phone: [place] [address] [address] Work Phone: 03-20-2022 11:08-0400 Body weight 76.6 kg Margarita Mosley Work Phone: [place] [address] [address] Work Phone: 03-20-2022 11:08-0400 Diastolic blood pressure 62 mm[Hg] Margarita Mosley Work Phone: [place] [address] [address] Work Phone: 03-20-2022 11:08-0400 Systolic blood pressure 122 mm[Hg] Margarita Mosley Work Phone: [place] [address] [address] Work Phone: 02-24-2022 09:44-0400 Body height 162.56 cm Margarita Mosley Work Phone: [place] [address] [address] Work Phone: 02-24-2022 09:44-0400 Body mass index (BMI) [Ratio] 30.24 kg/m2 Margarita Wheeleron Work Phone: [place] [address] [address] Work Phone: 02-24-2022 09:44-0400 Body surface area Derived from formula 1.85 m2 Margaritaailin Wheeleron Work Phone: [place] [address] [address] Work Phone: 02-24-2022 09:44-0400 Body weight 79.9 kg Margaritaailin Wheeleron Work Phone: [place] [address] [address] Work Phone: 02-24-2022 09:44-0400 Diastolic blood pressure 60 mm[Hg] Margarita Wheeleron Work Phone: [place] [address] [address] Work Phone: 02-24-2022 09:44-0400 Systolic blood pressure 128 mm[Hg] Margarita Wheeleron Work Phone: [place] [address] [address] Work Phone: 02-03-2022 13:04-0400 Body height 162.56 cm Margarita Wheeleron Work Phone: [place] [address] [address] Work Phone: 02-03-2022 13:04-0400 Body mass index (BMI) [Ratio] 29.71 kg/m2 Margarita Wheeleron Work Phone: [place] [address] [address] Work Phone: 02-03-2022 13:04-0400 Body surface area Derived from formula 1.84 m2 Margarita Wheeleron Work Phone: [place] [address] [address] Work Phone: 02-03-2022 13:04-0400 Body weight 78.5 kg Margarita Wheeleron Work Phone: [place] [address] [address] Work Phone: 02-03-2022 13:04-0400 Diastolic blood pressure 62 mm[Hg] Margarita G Melany Work Phone: [place] [address] [address] Work Phone: 02-03-2022 13:04-0400 Systolic blood pressure 120 mm[Hg] Margaritaailin Wheeleron Work Phone: [place] [address] [address] Work Phone: 01-20-2022 13:27-0400 Body height 162.56 cm Margaritaailin Wheeleron Work Phone: [place] [address] [address] Work Phone: 01-20-2022 13:27-0400 Body mass index (BMI) [Ratio] 30.08 kg/m2 Margarita Wheeleron Work Phone: [place] [address] [address] Work Phone: 01-20-2022 13:27-0400 Body surface area Derived from formula 1.85 m2 Margaritaailin Wheeleron Work Phone: [place] [address] [address] Work Phone: 01-20-2022 13:27-0400 Body weight 79.49 kg Margarita Mosley Work Phone: [place] [address] [address] Work Phone: 01-20-2022 13:27-0400 Diastolic blood pressure 74 mm[Hg] Margarita Wheeleron Work Phone: [place] [address] [address] Work Phone: 01-20-2022 13:27-0400 Systolic blood pressure 112 mm[Hg] Margaritaailin Wheeleron Work Phone: [place] [address] [address] Work Phone: 01-02-2022 13:22-0400 Body height 162.56 cm Margaritaailin Wheeleron Work Phone: [place] [address] [address] Work Phone: 01-02-2022 13:22-0400 Body mass index (BMI) [Ratio] 30.16 kg/m2 Margarita Mosley Work Phone: [facility] [id number] [employer] Work Phone: 01-02-2022 13:22-0400 Body surface area Derived from formula 1.85 m2 Margarita Mosley Work Phone: [place] [address] [employer] Work Phone: 01-02-2022 13:22-0400 Body weight 79.7 kg Margarita Mosley Work Phone: [place] [address] [employer] Work Phone: 01-02-2022 13:22-0400 Diastolic blood pressure 78 mm[Hg] Margarita Mosley Work Phone: [place] [address] [employer] Work Phone: 01-02-2022 13:22-0400 Systolic blood pressure 120 mm[Hg] Margarita Mosley Work Phone: [place] [address] [employer] Work Phone: 12-30-2021 16:10-0400 Body temperature 97.88 [degF] Margarita Mosley Other Phone: [facility] 12-30-2021 16:10-0400 Diastolic blood pressure 79 mm[Hg] Margaritaailin Wheeleron Other Phone: [facility] 12-30-2021 16:10-0400 Heart rate 74 /min Margaritaailin Wheeleron Other Phone: [facility] 12-30-2021 16:10-0400 Respiratory rate 16 /min Margaritaailin Wheeleron Other Phone: [facility] 12-30-2021 16:10-0400 SaO2% (BldA) [Mass fraction] 99 % Margarita Wheeleron Other Phone: [facility] 12-30-2021 16:10-0400 Systolic blood pressure 128 mm[Hg] Margarita Mosley Other Phone: [facility] 12-20-2021 14:15-0400 Body height 162.56 cm Margaritaailin Wheeleron Work Phone: [facility] Work Phone: 12-20-2021 14:15-0400 Body mass index (BMI) [Ratio] 32.92 kg/m2 Margaritaailin Wheeleron Work Phone: [place] [address] [address] Work Phone: 12-20-2021 14:15-0400 Body surface area Derived from formula 1.92 m2 Margaritaailin Wheeleron Work Phone: [place] [address] [address] Work Phone: 12-20-2021 14:15-0400 Body weight 87 kg Margaritaailin Wheeleron Work Phone: [place] [address] [address] Work Phone: 12-20-2021 14:15-0400 Diastolic blood pressure 70 mm[Hg] Margaritaailin Wheeleron Work Phone: [place] [address] [address] Work Phone: 12-20-2021 14:15-0400 Systolic blood pressure 118 mm[Hg] Margarita Wheeleron Work Phone: [place] [address] [address] Work Phone: 12-13-2021 14:12-0400 Body height 162.56 cm Margaritaailin Wheeleron Work Phone: [place] [address] [address] Work Phone: 12-13-2021 14:12-0400 Body mass index (BMI) [Ratio] 32.43 kg/m2 Margaritaailin Wheeleron Work Phone: [place] [address] [address] Work Phone: 12-13-2021 14:12-0400 Body surface area Derived from formula 1.91 m2 Margaritaailin Wheeleron Work Phone: [place] [address] [address] Work Phone: 12-13-2021 14:12-0400 Body weight 85.7 kg Margaritaailin Wheeleron Work Phone: [place] [address] [address] Work Phone: 12-13-2021 14:12-0400 Diastolic blood pressure 78 mm[Hg] Margaritaailin Wheeleron Work Phone: [place] [address] [address] Work Phone: 12-13-2021 14:12-0400 Systolic blood pressure 120 mm[Hg] Margaritaailin Wheeleron Work Phone: [place] [address] [address] Work Phone: 12-06-2021 15:04-0400 Body height 162.56 cm Margarita Wheeleron Work Phone: [place] [address] [address] Work Phone: 12-06-2021 15:04-0400 Body mass index (BMI) [Ratio] 32.35 kg/m2 Margarita Wheeleron Work Phone: [place] [address] [address] Work Phone: 12-06-2021 15:04-0400 Body surface area Derived from formula 1.91 m2 Margarita Wheeleron Work Phone: [place] [address] [address] Work Phone: 12-06-2021 15:04-0400 Body weight 85.5 kg Margaritaailin Wheeleron Work Phone: [place] [address] [address] Work Phone: 12-06-2021 15:04-0400 Diastolic blood pressure 64 mm[Hg] Margaritaailin Wheeleron Work Phone: [place] [address] [address] Work Phone: 12-06-2021 15:04-0400 Systolic blood pressure 118 mm[Hg] Margarita Mosley Work Phone: [address] Work Phone: 11-30-2021 11:38-0400 Body height 162.56 cm Margarita Mosley Work Phone: FZ-QLIUH-Faqzgwk [address] Work Phone: 11-30-2021 11:38-0400 Body mass index (BMI) [Ratio] 32.43 kg/m2 Margarita Mosley Work Phone: WG-UBLVP-Fbyuajz [address] Work Phone: 11-30-2021 11:38-0400 Body surface area Derived from formula 1.91 m2 Margarita Mosley Work Phone: DE-KZIPO-Rwftyue [address] Work Phone: 11-30-2021 11:38-0400 Body weight 85.7 kg Margarita Mosley Work Phone: FQ-RWHUL-Bulzowt [address] Work Phone: 11-30-2021 11:38-0400 Diastolic blood pressure 68 mm[Hg] Margarita Mosley Work Phone: PP-JVVBL-Mgjzayw [address] Work Phone: 11-30-2021 11:38-0400 Systolic blood pressure 120 mm[Hg] Margarita Mosley Work Phone: EK-WNCBE-Cdxdcqo [address] Work Phone: 11-22-2021 14:11-0400 Body height 162.56 cm Margarita Mosley Work Phone: [address] Work Phone: 11-22-2021 14:11-0400 Body mass index (BMI) [Ratio] 32.05 kg/m2 Margarita G Melany Work Phone: [place] [address] [address] Work Phone: 11-22-2021 14:11-0400 Body surface area Derived from formula 1.9 m2 Margarita G Melany Work Phone: [place] [address] [address] Work Phone: 11-22-2021 14:11-0400 Body weight 84.7 kg Margarita G Melany Work Phone: [place] [address] [address] Work Phone: 11-22-2021 14:11-0400 Diastolic blood pressure 60 mm[Hg] Margarita G Melany Work Phone: [place] [address] [address] Work Phone: 11-22-2021 14:11-0400 Systolic blood pressure 108 mm[Hg] Margarita G Melany Work Phone: [address] Work Phone: 11-09-2021 14:18-0500 Body height 162.56 cm Margarita G Melany Work Phone: [address] Work Phone: 11-09-2021 14:18-0500 Body mass index (BMI) [Ratio] 32.2 kg/m2 Margarita G Melany Work Phone: [address] Work Phone: 11-09-2021 14:18-0500 Body surface area Derived from formula 1.9 m2 Margarita G Melany Work Phone: [place] [address] [address] Work Phone: 11-09-2021 14:18-0500 Body weight 85.1 kg Margarita G Melany Work Phone: [place] [address] [address] Work Phone: 11-09-2021 14:18-0500 Diastolic blood pressure 70 mm[Hg] Margarita G Melany Work Phone: [address] Work Phone: 11-09-2021 14:18-0500 Systolic blood pressure 100 mm[Hg] Margarita oMsley Work Phone: [address] Work Phone: 11-01-2021 12:39-0500 Body height 162.56 cm Margarita Mosley Work Phone: YS-LOZAM-Jsqvbsn [address] Work Phone: 11-01-2021 12:39-0500 Body mass index (BMI) [Ratio] 31.76 kg/m2 Margarita Mosley Work Phone: JA-ORYRV-Gczrzsu [address] Work Phone: 11-01-2021 12:39-0500 Body surface area Derived from formula 1.89 m2 Margarita Mosley Work Phone: HH-TQIKR-Sbisaps [address] Work Phone: 11-01-2021 12:39-0500 Body weight 83.92 kg Margarita Mosley Work Phone: ZG-WZNQN-Spmkeqt [address]nd [address] Work Phone: 11-01-2021 12:39-0500 Diastolic blood pressure 79 mm[Hg] Margarita Mosley Work Phone: JH-UJNJC-Mkqgkxm 2nd Fl Work Phone: 11-01-2021 12:39-0500 Heart rate 74 /min Margarita Mosley Work Phone: RO-BANMX-Xixwble [address] Work Phone: 11-01-2021 12:39-0500 Systolic blood pressure 129 mm[Hg] Margarita Mosley Work Phone: TN-MQZIR-Gcczbdu 2nd [address] Work Phone: 11-01-2021 12:39-0500 0 1 Margarita Nestor Melany Work Phone: [address] Work Phone: Comment on above: [employer] 10-26-2021 14:21-0500 Body height 162.56 cm Margarita Nestor Melany Work Phone: [place] [address] [address] Work Phone: 10-26-2021 14:21-0500 Body mass index (BMI) [Ratio] 31.64 kg/m2 Margarita Nestor Melany Work Phone: [place] [address] [address] Work Phone: 10-26-2021 14:21-0500 Body surface area Derived from formula 1.89 m2 Margarita Nestor Melany Work Phone: [place] [address] [address] Work Phone: 10-26-2021 14:21-0500 Body temperature 97.7 [degF] Margarita Nestor Melany Work Phone: [place] [address] [address] Work Phone: 10-26-2021 14:21-0500 Body weight 83.6 kg Margarita Nestor Melany Work Phone: [place] [address] [address] Work Phone: 10-26-2021 14:21-0500 Diastolic blood pressure 72 mm[Hg] Margarita G Melany Work Phone: [place] [address] [address] Work Phone: 10-26-2021 14:21-0500 Systolic blood pressure 116 mm[Hg] Margarita G Melany Work Phone: [place] [address] [address] Work Phone: 10-12-2021 13:58-0500 Body height 162.56 cm Margarita G Melany Work Phone: [place] [address] [address] Work Phone: 10-12-2021 13:58-0500 Body mass index (BMI) [Ratio] 31.52 kg/m2 Margaritaailin Wheeleron Work Phone: [place] [address] [address] Work Phone: 10-12-2021 13:58-0500 Body surface area Derived from formula 1.89 m2 Margaritaailin Wheeleron Work Phone: [place] [address] [address] Work Phone: 10-12-2021 13:58-0500 Body temperature 97.8 [degF] Margaritaailin Mosley Work Phone: [place] [address] [address] Work Phone: 10-12-2021 13:58-0500 Body weight 83.3 kg Margaritaailin Wheeleron Work Phone: [place] [address] [address] Work Phone: 10-12-2021 13:58-0500 Diastolic blood pressure 64 mm[Hg] Margaritaailin Wheeleron Work Phone: [place] [address] [address] Work Phone: 10-12-2021 13:58-0500 Systolic blood pressure 110 mm[Hg] Margarita Wheeleron Work Phone: [place] [address] [address] Work Phone: 09-27-2021 11:17-0500 Body height 162.56 cm Margarita Wheeleron Work Phone: [place] [address] [address] Work Phone: 09-27-2021 11:17-0500 Body mass index (BMI) [Ratio] 31.24 kg/m2 Margaritaailin Wheeleron Work Phone: [place] [address] [address] Work Phone: 09-27-2021 11:17-0500 Body surface area Derived from formula 1.88 m2 Margarita G Melany Work Phone: [place] [address] [address] Work Phone: 09-27-2021 11:17-0500 Body weight 82.56 kg Margaritaailin Wheeleron Work Phone: [place] [address] [address] Work Phone: 09-27-2021 11:17-0500 Diastolic blood pressure 75 mm[Hg] Margarita G Mealny Work Phone: [place] [address] [address] Work Phone: 09-27-2021 11:17-0500 Heart rate 96 /min Margaritaailin Wheeleron Work Phone: [place] [address] [address] Work Phone: 09-27-2021 11:17-0500 Systolic blood pressure 119 mm[Hg] Margaritaailin Wheeleron Work Phone: [place] [address] [address] Work Phone: 09-27-2021 11:17-0500 0 1 Margaritaailin Wheeleron Work Phone: [place] [address] [address] Work Phone: Comment on above: [employer] 09-21-2021 13:57-0500 Body height 162.56 cm Margarita Wheeleron Work Phone: [place] [address] [address] Work Phone: 09-21-2021 13:57-0500 Body mass index (BMI) [Ratio] 31.18 kg/m2 Margarita Nestor Melany Work Phone: [place] [address] [address] Work Phone: 09-21-2021 13:57-0500 Body surface area Derived from formula 1.88 m2 Margarita G Melany Work Phone: [place] [address] [address] Work Phone: 09-21-2021 13:57-0500 Body temperature 97.5 [degF] Margaritaailin Wheeleron Work Phone: [place] [address] [employer] Work Phone: 09-21-2021 13:57-0500 Body weight 82.4 kg Margaritaailin Wheeleron Work Phone: [place] [address] [address] Work Phone: 09-21-2021 13:57-0500 Diastolic blood pressure 58 mm[Hg] Margaritaailin Wheeleron Work Phone: [place] [address] [employer] Work Phone: 09-21-2021 13:57-0500 Systolic blood pressure 112 mm[Hg] Margaritaailin Wheeleron Work Phone: [place] [address] [employer] Work Phone: 09-14-2021 16:14-0500 Body height 165 cm Margaritaailin Wheeleron Other Phone: [facility] 09-14-2021 16:14-0500 Body temperature 98.06 [degF] Margaritaailin Wheeleron Other Phone: [facility] 09-14-2021 16:14-0500 Diastolic blood pressure 69 mm[Hg] Margaritaailin Wheeleron Other Phone: [facility] 09-14-2021 16:14-0500 Heart rate 73 /min Margaritaailin Wheeleron Other Phone: [facility] 09-14-2021 16:14-0500 SaO2% (BldA) [Mass fraction] 96 % Margaritaailin Wheeleron Other Phone: [facility] 09-14-2021 16:14-0500 Systolic blood pressure 106 mm[Hg] Margarita Melany Other Phone: [facility] 08-19-2021 15:28-0500 Body height 162.56 cm Margaritaailin Wheeleron Work Phone: [address] Work Phone: 08-19-2021 15:28-0500 Body mass index (BMI) [Ratio] 30.73 kg/m2 Margarita Mosley Work Phone: [address] Work Phone: 08-19-2021 15:28-0500 Body surface area Derived from formula 1.87 m2 Margarita Mosley Work Phone: [address] Work Phone: 08-19-2021 15:28-0500 Body temperature 97.7 [degF] Margarita Mosley Work Phone: [address] Work Phone: 08-19-2021 15:28-0500 Body weight 81.19 kg Margarita Mosley Work Phone: [address] Work Phone: 08-19-2021 15:28-0500 Diastolic blood pressure 62 mm[Hg] Margarita Mosley Work Phone: [address] Work Phone: 08-19-2021 15:28-0500 Systolic blood pressure 110 mm[Hg] Margarita Mosley Work Phone: [address] Work Phone: 08-09-2021 14:25-0500 Body height 162.56 cm Margarita Wheeleron Work Phone: CU-ZUHGC-Rnehbhw [facility] Work Phone: 08-09-2021 14:25-0500 Body mass index (BMI) [Ratio] 30.38 kg/m2 Margarita Wheeleron Work Phone: XW-ASBGP-Uzjbjiu [address] Work Phone: 08-09-2021 14:25-0500 Body surface area Derived from formula 1.86 m2 Margarita Mosley Work Phone: UA-NLENG-Agryoww [address]nd [address] Work Phone: 08-09-2021 14:25-0500 Body weight 80.29 kg Margarita Mosley Work Phone: CY-MEVTX-Qodygzi [address] Work Phone: 08-09-2021 14:25-0500 Diastolic blood pressure 78 mm[Hg] Margarita Mosley Work Phone: ZN-FESBF-Ijxtcyy 2nd Fl Work Phone: 08-09-2021 14:25-0500 Heart rate 79 /min Margarita Mosley Work Phone: ME-UPXEU-Hofigbk [address]nd [address] Work Phone: 08-09-2021 14:25-0500 Systolic blood pressure 146 mm[Hg] Margarita Mosley Work Phone: VI-AXONR-Yyceofe [address]nd [address] Work Phone: 08-09-2021 14:25-0500 1 1 Margarita Mosley Work Phone: UZ-VJVWA-Nufjdcf [address]nd [address] Work Phone: Comment on above: [facility] 08-09-2021 14:25-0500 0 1 Margarita Mosley Work Phone: ZC-SWHPU-Dyeevfq 2nd Fl Work Phone: Comment on above: [facility] 08-02-2021 11:41-0500 Body height 162.56 cm Margarita Mosley Work Phone: [address] Work Phone: 08-02-2021 11:41-0500 Body mass index (BMI) [Ratio] 30.65 kg/m2 Margarita Mosley Work Phone: [place] [address] [address] Work Phone: 08-02-2021 11:41-0500 Body surface area Derived from formula 1.86 m2 Margaritaailin Wheeleron Work Phone: [place] [address] [address] Work Phone: 08-02-2021 11:41-0500 Body temperature 97.7 [degF] Margarita G Melany Work Phone: [place] [address] [address] Work Phone: 08-02-2021 11:41-0500 Body weight 81 kg Margaritaailin Wheeleron Work Phone: [place] [address] [address] Work Phone: 08-02-2021 11:41-0500 Diastolic blood pressure 60 mm[Hg] Margarita G Melany Work Phone: [place] [address] [address] Work Phone: 08-02-2021 11:41-0500 Systolic blood pressure 120 mm[Hg] Margarita G Melany Work Phone: [place] [address] [address] Work Phone: 07-22-2021 16:04-0500 Body height 162.56 cm Margaritaailin Wheeleron Work Phone: [place] [address] [address] Work Phone: 07-22-2021 16:04-0500 Body mass index (BMI) [Ratio] 30.54 kg/m2 Margarita Nestor Melany Work Phone: [place] [address] [address] Work Phone: 07-22-2021 16:04-0500 Body surface area Derived from formula 1.86 m2 Margarita Nestor Melany Work Phone: [place] [address] [address] Work Phone: 07-22-2021 16:04-0500 Body temperature 97.8 [degF] Margarita Nestor Melany Work Phone: [place] [address] [address] Work Phone: 07-22-2021 16:04-0500 Body weight 80.7 kg Margarita Mosley Work Phone: [place] [address] [address] Work Phone: 07-22-2021 16:04-0500 Diastolic blood pressure 64 mm[Hg] Margarita Mosley Work Phone: [place] [address] [address] Work Phone: 07-22-2021 16:04-0500 Systolic blood pressure 112 mm[Hg] Margarita Mosley Work Phone: [place] [address] [employer] Work Phone: 07-08-2021 15:53-0400 Body height 162.56 cm Margarita Mosley Work Phone: [place] [address] [employer] Work Phone: 07-08-2021 15:53-0400 Body mass index (BMI) [Ratio] 30.73 kg/m2 Margarita Mosley Work Phone: [place] [address] [employer] Work Phone: 07-08-2021 15:53-0400 Body surface area Derived from formula 1.87 m2 Margarita Mosley Work Phone: [place] [address] [address] Work Phone: 07-08-2021 15:53-0400 Body temperature 97.7 [degF] Margarita Wheeleron Work Phone: [place] [address] [address] Work Phone: 07-08-2021 15:53-0400 Body weight 81.19 kg Margarita Mosley Work Phone: [place] [address] [address] Work Phone: 07-08-2021 15:53-0400 Diastolic blood pressure 80 mm[Hg] Margarita Mosley Work Phone: [place] [address] [employer] Work Phone: 07-08-2021 15:53-0400 Systolic blood pressure 122 mm[Hg] Margarita Mosley Work Phone: [place] [address] [employer] Work Phone: 07-04-2021 14:04-0400 Body height 165.1 cm Margarita Mosley Other Phone: [facility] 07-04-2021 14:04-0400 Body temperature 96.26 [degF] Margarita Mosley Other Phone: [facility] 07-04-2021 14:04-0400 Diastolic blood pressure 65 mm[Hg] Margarita Mosley Other Phone: [facility] 07-04-2021 14:04-0400 Heart rate 89 /min Margarita Mosley Other Phone: [facility] 07-04-2021 14:04-0400 SaO2% (BldA) [Mass fraction] 96 % Margarita Mosley Other Phone: [facility] 07-04-2021 14:04-0400 Systolic blood pressure 107 mm[Hg] Margarita Mosley Other Phone: [facility] 06-29-2021 14:48-0400 Body height 162.56 cm Margarita Mosley Work Phone: [place] [address] [employer] Work Phone: 06-29-2021 14:48-0400 Body mass index (BMI) [Ratio] 30.12 kg/m2 Margarita Mosley Work Phone: [place] [phone] [employer] Work Phone: 06-29-2021 14:48-0400 Body surface area Derived from formula 1.85 m2 Margarita Mosley Work Phone: [place] [address] [employer] Work Phone: 06-29-2021 14:48-0400 Body temperature 98.4 [degF] Margaritaailin Wheeleron Work Phone: [place] [address] [employer] Work Phone: 06-29-2021 14:48-0400 Body weight 79.6 kg Margaritaailin Wheeleron Work Phone: [place] [address] [employer] Work Phone: 06-29-2021 14:48-0400 Diastolic blood pressure 64 mm[Hg] Margaritaailin Wheeleron Work Phone: [place] [address] [employer] Work Phone: 06-29-2021 14:48-0400 Systolic blood pressure 110 mm[Hg] Margaritaailin Wheeleron Work Phone: [address] Work Phone: 06-24-2021 15:42-0400 Body height 162.56 cm Margaritaailin Wheeleron Work Phone: [place] [address] [employer] Work Phone: 06-24-2021 15:42-0400 Body mass index (BMI) [Ratio] 30.25 kg/m2 Margaritaailin Wheeleron Work Phone: [place] [address] [employer] Work Phone: 06-24-2021 15:42-0400 Body surface area Derived from formula 1.85 m2 Margaritaailin Wheeleron Work Phone: [place] [address] [employer] Work Phone: 06-24-2021 15:42-0400 Body temperature 97.8 [degF] Margarita Wheeleron Work Phone: [place] [address] [employer] Work Phone: 06-24-2021 15:42-0400 Body weight 79.95 kg Margaritaailin Wheeleron Work Phone: [place] [address] [employer] Work Phone: 06-24-2021 15:42-0400 Diastolic blood pressure 64 mm[Hg] Margarita Mosley Work Phone: [place] [address] [employer] Work Phone: 06-24-2021 15:42-0400 Systolic blood pressure 102 mm[Hg] Margarita Mosley Work Phone: [place] [address] [employer] Work Phone: 05-27-2021 14:52-0400 Body height 162.56 cm Margarita Mosley Work Phone: [place] [address] [employer] Work Phone: 05-27-2021 14:52-0400 Body mass index (BMI) [Ratio] 29.74 kg/m2 Margarita Mosley Work Phone: [address] Work Phone: 05-27-2021 14:52-0400 Body surface area Derived from formula 1.84 m2 Margarita Mosley Work Phone: [address] Work Phone: 05-27-2021 14:52-0400 Body temperature 98.4 [degF] Margarita Mosley Work Phone: [place] [address] [employer] Work Phone: 05-27-2021 14:52-0400 Body weight 78.6 kg Margarita Wheeleron Work Phone: [place] [address] [employer] Work Phone: 05-27-2021 14:52-0400 Diastolic blood pressure 60 mm[Hg] Margarita Wheeleron Work Phone: [place] [address] [employer] Work Phone: 05-27-2021 14:52-0400 Systolic blood pressure 100 mm[Hg] Margarita Mosley Work Phone: [address] Work Phone: 01-21-2019 14: BMI (Body Mass Index) 27.96 kg/m2 Canelo Beltre [facility] 01-21-2019 14: Body weight 76.2 kg Canelo Beltre [facility] 01-21-2019 14: Height 165.1 cm Canelomarissa Beltre [facility] Encounters Encounter Date Encounter Type Care Provider Facility Start: 07-14-2025 ambulatory Margarita Mosley Facility: [facility] Start: 07-06-2025 End: 07-06-2025 ambulatory Margarita Mosley Facility:[facility] Start: 07-03-2025 ambulatory Enrique Dyer Facility :[facility] Start: 06-25-2025 End: 06-25-2025 ambulatory [facility] Facility:[facility] Start: 06-25-2025 Encounter for gynecological examination (general) (routine) without abnormal findings [facility] Start: 06-17-2025 End: 06-17-2025 ambulatory MARGARITA MOSLEY Facility:[id number] Start: 06-15-2025 End: 06-15-2025 ambulatory MARGARITA MOSLEY Facility:[facility] Start: 05-25-[address] Enrique kurtz MD -Physical Therapy Work Phone: Start: 05-20-2025 Visit out of hours Enrique kurtz MD Work Phone: [employer] Work Phone: Start: 05-20-2025 In-person encounter Enrique moon MD Work Phone: [facility] Work Phone: Start: 05-20-2025 End: 05-21-2025 Patient encounter procedure [facility] Provider [facility] Department Start: 03-05-2025 End: 03-05-2025 Patient encounter procedure [facility]cf Provider [facility] Department Start: 03-03-2025 End: 05-03-2025 Follow-up encounter Damaso Mistry LPN [facility] Start: 03-02-2025 End: 03-02-2025 ambulatory MARGARITA MOSLEY Facility:[facility] Start: 03-02-2025 End: 03-02-2025 Subsequent hospital visit by physician [facility] Work Phone: Radiology Comment on above: RUQ pain [R10.11] Start: 02-25-2025 End: 02-25-2025 Office outpatient visit 25 minutes Margarita Mosley MD [facility] Comment on above: RUQ pain (Primary Dx ); Nausea and vomiting, unspecified vomiting type; Anxiety Start: 02-25-2025 End: 02-25-2025 ambulatory MARGARITA MOSLEY Facility:[id number] Start: 02-09-2025 End: 02-09-2025 ambulatory Margarita Mosley Facility:[facility] Start: 01-31-2025 End: 02-04-2025 Refill Margarita Mosley MD Work Phone: [facility] Comment on above: Refill Request Start: 12-04-2024 End: 12-04-2024 Patient encounter procedure Ccf Provider [facility] Department Start: 11-14-2024 End: 11-17-2024 Patient encounter procedure [facility]cf Provider [facility] Department Start: 11-13-2024 End: 11-14-2024 Patient encounter procedure Ccf Provider [facility] Department Start: 11-13-2024 End: 11-13-2024 Emergency department patient visit GONZALEZ RUGGIERO [facility] Start: 11-06-2024 End: 11-06-2024 Patient encounter procedure Ccf Provider [facility] Department Start: 10-09-2024 End: 10-09-2024 Patient encounter procedure Ccf Provider [facility] Start: 10-06-2024 End: 10-06-2024 ambulatory MARGARITA MOSLEY Facility:[id number] Start: 10-06-2024 End: 10-06-2024 Office outpatient visit 15 minutes Margarita Mosley MD Work Phone: [facility] Comment on above: Spinal stenosis of l umbosacral region (Primary Dx) Start: 10-03-2024 End: 10-06-2024 ambulatory Chris Law MD Work Phone: OB/Gynecology Comment on above: Control Start: 10-03-2024 End: 10-03-2024 Telephone encounter Margarita Mosley MD Work Phone: [facility] Comment on above: Patient Update Start: 10-02-2024 End: 10-02-[address] Enrique Dyer MD -[facility] Work Phone: Start: 10-01-2024 End: 10-02-2024 Patient encounter procedure Ccf Provider [facility] Start: 10-01-2024 End: 10-02-[address] Margarita Mosley MD Work Phone: [facility] Work Phone: Start: 10-01-2024 End: 10-01-[address] Enrique Dyer MD -Physical Therapy Work Phone: Start: 10-01-2024 End: 10-01-2024 Emergency department patient visit Dr. nErique Khoury DO -Emergency Department Work Phone: Start: 09-18-2024 End: 09-19-2024 Patient encounter procedure Ccf Provider [facility] Start: 09-16-2024 End: 09-17-2024 Refill Margarita Mosley MD Work Phone: [facility] Comment on above: Refill Request Start: 08-29-2024 End: 09-01-2024 Patient encounter procedure Ccf Provider [facility] Department Start: 08-18-2024 End: 08-18-2024 Telephone encounter Margarita Mosley MD Work Phone: [facility] Comment on above: Refill Request Start: 08-11-2024 End: 08-11-2024 E-mail encounter from caregiver Margarita Mosley MD Work Phone: [facility] Start: 08-11-2024 End: 08-11-2024 Patient encounter procedure Margarita Mosley MD Work Phone: [facility] Comment on above: Referral from Dr Wheeler on Start: 08-11-2024 End: 08-11-2024 Telephone encounter Margarita Mosley MD Work Phone: [facility] Comment on above: Orthopedic Referral has been faxed to [facility] Orth[facility] referral info given via [employer] Referral Information Refill Request (Cycl obenzaprine ) Start: 08-06-2024 End: 08-06-2024 Patient encounter status Margarita Mosley MD Work Phone: [facility] Start: 08-06-2024 End: 08-06-2024 Periodic preventive med est patient 18-39 yrs Margarita Mosley MD Work Phone: [facility] Comment on above: Wellness examination (Primary Dx); Screening for depression; Acute midline low back pain with right-sided sciatica; Anxiety; Hypertension, essential; Lipid screening; Screening for deficiency anemia Start: 08-06-2024 End: 08-06-2024 ambulatory MARGARITA RAEGAN MELANY Facility:[id number] Start: 08-06-2024 Encounter for genera l adult medical examination without abnormal findings MARGARITA MOSLEY [facility] Start: 02-21-2024 End: 02-21-2024 Patient encounter procedure Chris Law MD Work Phone: OB/Gynecology Comment on above: ASCUS with positive high risk HPV cervical (Primary Dx) Start: 01-28-2024 Telephone encounter Chris lyman MD Work Phone: OB/Gynecology Comment on above: Abnormal Pap Start: 01-27-2024 Refill Margarita Mariano MD Work Phone: [facility] Comment on above: Refill Request Start: 01-10-2024 End: 01-10-2024 Patient encounter procedure Chris Law MD Work Phone: OB/Gynecology Comment on above: care and examination (Primary Dx); Screening for malignant neoplasm of cervix; Special screening examination for human papillomavirus (HPV); Encounter for initial prescription of contraceptive pills; History of gestational diabetes Start: 12-02-2023 Patient encounter procedure [facility]cf Provider [facility] Department Start: 11-30-2023 ambulatory Chris Bob Work Phone: OB/Gynecology Comment on above: Ob Delivery Note Start: 11-30-2023 End: 12-02-2023 Evaluation and management of inpatient [facility] Work Phone: Start: 11-26-2023 End: 11-26-2023 Patient encounter procedure Mayelin Villalba APRN.CNM Work Phone: OB/Gynecology Comment on above: Encounter for superv ision of high risk in third trimester, antepartum (Primary Dx); Insulin controlled gestational diabetes mellitus (GDM) in third trimester; 38 weeks gestation of ; Single umbilical artery affecting management of mother in downs , antepartum Start: 11-22-2023 End: 11-22-2023 Patient encounter procedure Chris Law MD Work Phone: OB/Gynecology Comment on above: 37 weeks gestation o f (Primary Dx); Encounter for supervision of high risk in third trimester, antepartum; Insulin controlled gestational diabetes mellitus (GDM) in third trimester; Breech presentation with problem, single or unspecified fetus Start: 11-22-2023 ambulatory Chris Bob Work Phone: OB/Gynecology Comment on above: Blood sugars Start: 11-22-2023 Telephone encounter Chris lyman MD Work Phone: OB/Gynecology Comment on above: vs Start: 11-19-2023 End: 11-19-2023 Patient encounter procedure Rebekah Bagley MD Work Phone: OB/Gynecology Comment on above: Insulin controlled g estational diabetes mellitus (GDM) in third trimester (Primary Dx); 37 weeks gestation of ; Encounter for supervision of high risk in third trimester, antepartum; Breech presentation with problem, single or unspecified fetus Start: 11-06-2023 End: 11-06-2023 Patient encounter procedure Alana Nava MD Work Phone: OB/Gynecology Comment on above: Encounter for superv ision of high risk in third trimester, antepartum (Primary Dx); 35 weeks gestation of ; Insulin controlled gestational diabetes mellitus (GDM) in third trimester; Single umbilical artery affecting management of mother in downs , antepartum; Folliculitis Start: 11-01-2023 End: 11-01-2023 Patient encounter procedure Annika Lehman MD Work Phone: OB/Gynecology Comment on above: 34 weeks gestation o f (Primary Dx); Insulin controlled gestational diabetes mellitus (GDM) in third trimester Start: 10-29-2023 Telephone encounter Chris lyman MD Work Phone: OB/Gynecology Comment on above: OB Blood sugars Start: 10-29-2023 End: 10-29-[address] Nutrition Therapy Comment on above: Dietary counseling ( Primary Dx); 34 weeks gestation of ; Gestational diabetes mellitus (GDM) in third trimester, gestational diabetes method of control unspecified Start: 10-29-2023 End: 10-29-2023 Telemedicine consultation with patient Angelika Andrews RD [facility] Start: 10-26-2023 End: 10-26-2023 Patient encounter procedure Annika Lehman MD Work Phone: OB/Gynecology Comment on above: Gestational diabetes mellitus (GDM) in third trimester, gestational diabetes method of control unspecified (Primary Dx); 34 weeks gestation of ; History of gestational diabetes in prior , currently Refill Request Start: 10-18-2023 Telephone encounter Chris lyman MD Work Phone: OB/Gynecology Comment on above: Blood Sugar Reading Start: 10-11-2023 Telephone encounter Mayelin arce APRN.CNM Work Phone: OB/Gynecology Comment on above: Results (3 hour gluc ose) Start: 08-24-2023 End: 08-24-2023 Patient encounter procedure Mayelin Villalba APRN.CNM Work Phone: OB/Gynecology Comment on above: 25 weeks gestation o f (Primary Dx); History of gestational hypertension; with care elsewhere, antepartum; Single umbilical artery; History of gestational diabetes in prior , currently Start: 08-17-2023 Telephone encounter Manjula Whittaker MD Work Phone: OB/Gynecology Comment on above: Case Manag er Start: 07-27-2023 End: 07-27-2023 Patient encounter procedure Alana Nava MD Work Phone: OB/Gynecology Comment on above: 21 weeks gestation o f (Primary Dx); History of gestational hypertension; with care elsewhere, antepartum; Single umbilical artery affecting management of mother in downs , antepartum Start: 06-29-2023 End: 06-29-2023 Patient encounter procedure Manjula Whittaker MD Work Phone: OB/Gynecology Comment on above: Headache in pregnanc y, antepartum, second trimester (Primary Dx); History of gestational hypertension; with care elsewhere, antepartum; History of gestational diabetes in prior , currently ; 17 weeks gestation of Start: 05-31-2023 End: 05-31-2023 Patient encounter procedure Alana Nava MD Work Phone: OB/Gynecology Comment on above: 12 weeks gestation o f (Primary Dx); History of gestational diabetes in prior , currently ; History of gestational hypertension; with care elsewhere, antepartum; Sciatica of right side; Encounter for screening of mother Encounter for (NT) n uchal translucency scan (Primary Dx); 12 weeks gestation of Start: 05-16-2023 End: 05-16-2023 Patient encounter procedure Maranda Engle APRN.CNP Work Phone: OB/Gynecology Comment on above: 10 weeks gestation o f (Primary Dx); Anxiety with depression; History of gestational diabetes in prior , currently ; History of gestational hypertension Start: 05-09-2023 End: 05-09-2023 Nursing evaluation of patient and report Nurse Pnob [facility] Work Phone: OB/Gynecology Comment on above: with prena patsy care elsewhere, antepartum (Primary Dx); Bleeding in early ; Nausea and vomiting during ; History of depression; History of depression; History of maternal hypertension; History of gestational diabetes in prior , currently ; Tobacco use disorder complicating , childbirth, or puerperium, antepartum, unspecified trimester; Patient request for diagnostic testing; Abnormal cervical Papanicolaou smear affecting in first trimester Start: 05-09-2023 End: 07-27-2023 Patient requested procedure Nurse Pnob [facility] Work Phone: [facility] Work Phone: Start: 04-30-2023 Telephone encounter Mayelin arce APRN.CNM Work Phone: OB/Gynecology Comment on above: follow up ED visit Start: 04-29-2023 Patient encounter procedure Ccf Provider [facility] Department Start: 04-29-2023 End: 04-29-2023 Emergency department patient visit [facility]Emergency [facility] Work Phone: Start: 04-25-2023 End: 04-25-2023 Office outpatient visit 15 minutes Margarita Mosley MD Work Phone: [facility] Comment on above: Vomiting during preg kameron (Primary Dx) Start: 04-24-2023 Telephone encounter Maranda marmolejo APRN.CNP Work Phone: OB/Gynecology Comment on above: Received Outside Med [facility] Records Start: 04-24-2023 Patient encounter procedure [facility]-Laboratory, Specimen Work Phone: Start: 04-12-2023 End: 04-12-2023 Patient encounter procedure [facility], [employer] Start: 04-06-2023 Telephone encounter Margarita Mosley MD Work Phone: [facility] Comment on above: Care; Patie nt Question Start: 03-26-2023 Chart Update Margarita jolley Work Phone: [facility] [employer] [facility] Work Phone: Start: 03-21-2023 Encounter for gynecological examination (general) (routine) without abnormal findings Anton Hernandez [facility] Start: 03-20-2023 Encounter for gynecological examination (general) (routine) without abnormal findings [facility] Facility:[facility] Start: 03-20-2023 Periodic preventive med est patient 18-39 yrs Margarita Mosley Work Phone: [facility] Work Phone: Start: 03-20-2023 ambulatory [facility] Facility:[facility] Start: 12-15-2022 AUDIT Margarita jolley Work Phone: [facility] [employer] Work Phone: Start: 11-17-2022 Telephone encounter Margarita Mosley MD Work Phone: [facility] Comment on above: Population Health Na vigation Outreach (Population Health) Start: 11-13-2022 End: 11-13-2022 Patient encounter status Margarita Mosley MD Work Phone: [facility] Start: 11-13-2022 End: 11-13-2022 Periodic preventive med est patient 18-39 yrs Margarita Mosley MD Work Phone: [facility] Comment on above: Screening for depres zeke (Primary Dx); Anxiety; Wellness examination; Hypertension, essential; Lipid screening; Screening for deficiency anemia Start: 06-26-2022 AUDIT Margarita jolley Work Phone: [employer] Work Phone: Start: 03-20-2022 Office outpatient vi sit 10 minutes Margarita Mosley Work Phone: [employer] Work Phone: Start: 03-06-2022 Chart Update Margarita jolley Work Phone: [place] [phone] [employer] Work Phone: Start: 02-03-2022 Office outpatient vi sit 15 minutes Margarita Mosley Work Phone: [place] [phone] [employer] Work Phone: Start: 01-23-2022 Chart Update Margarita jolley Work Phone: [place] [address] [employer] Work Phone: Start: 01-02-2022 Office outpatient vi sit 10 minutes Margarita Mosley Work Phone: [place] [address] [employer] Work Phone: Start: 12-26-2021 End: 12-30-2021 Evaluation and management of inpatient Jose Carlosdeng Petty [facility] Start: 12-25-2021 Chart Update Margarita jolley Work Phone: [place] [phone] [employer] Work Phone: Start: 12-13-2021 Office outpatient vi sit 10 minutes Margarita Mosley Work Phone: [place] [address] [employer] Work Phone: Start: 12-07-2021 Chart Update Margarita jolley Work Phone: [place] [address] [employer] Work Phone: Start: 12-06-2021 EPVOB, Provider: Jose Carlos Petty, Status: Pen, Time: 2:15 PM Margarita Mosley Work Phone: [place] [address] [employer] Work Phone: Start: 12-06-2021 Office outpatient vi sit 10 minutes Margarita Mosley Work Phone: [place] [address] [employer] Work Phone: Start: 12-05-2021 Chart Update Margarita Nestor Fernando n Work Phone: [place] [address] [employer] Work Phone: Start: 11-30-2021 Chart Update Margarita Wheelero n Work Phone: [id number] [address] Work Phone: Start: 11-22-2021 Office outpatient vi sit 10 minutes Margarita Msoley Work Phone: [place] [address] [employer] Work Phone: Start: 11-09-2021 Office outpatient vi sit 10 minutes Margarita Mosley Work Phone: [facility] [phone] [address] Work Phone: Start: 11-01-2021 FUVCONTCLI, Provider : Rajesh Oliva, Status: Pen, Time: 12:30 PM Margarita Mosley Work Phone: [address] Work Phone: Start: 11-01-2021 Office outpatient vi sit 25 minutes Margarita Mosley Work Phone: [facility] [address] Work Phone: Start: 11-01-2021 ULTRASDFUV, Provider : ERNESTINA OB IM ROOM 1,[facility], Status: Pen, Time: 11:00 AM Margarita Mosley Work Phone: [place] [phone] [employer] Work Phone: Start: 10-31-2021 AUDIT Margarita Wheelero n Work Phone: [place] [address] [employer] Work Phone: Start: 10-26-2021 Office outpatient vi sit 15 minutes Margarita Mosley Work Phone: [place] [address] [employer] Work Phone: Start: 10-13-2021 Chart Update Margaritaailin Wheelreo n Work Phone: [place] [phone] [employer] Work Phone: Start: 10-12-2021 Office outpatient vi sit 10 minutes Margarita Nestor Mosley Work Phone: [employer] Work Phone: Start: 09-21-2021 Office outpatient vi sit 10 minutes Margarita Nestor Mosley Work Phone: [facility] [phone] [employer] Work Phone: Start: 09-14-2021 End: 09-14-2021 Emergency department patient visit Altagracia Marr [facility] Start: 08-20-2021 Chart Update Margarita Fernando n Work Phone: [facility] Work Phone: Start: 08-19-2021 Office outpatient vi sit 10 minutes Margarita Nestor Mosley Work Phone: [facility] [phone] [employer] Work Phone: Start: 08-10-2021 Chart Update Margarita Baez Summerleonard jolley Work Phone: [employer] Work Phone: Start: 08-09-2021 Nutrition therapy Margarita valenzuela Work Phone: [id number][facility] 2nd Fl Work Phone: Start: 08-09-2021 Office consultation new/estab patient 60 min Margarita Mosley Work Phone: [id number]-Miehptb 2nd Fl M[facility] Work Phone: Start: 08-09-2021 Patient encounter procedure Margarita Nestor Melany Work Phone: [id number] 2nd Fl Work Phone: Start: 08-02-2021 Patient encounter procedure Margarita Nestor Melany Work Phone: [address] Work Phone: Start: 07-29-2021 Chart Update Margarita Wheelero n Work Phone: [facility] [address] Work Phone: Start: 07-22-2021 EPVOB, Provider: Jose Carlos Petty, Status: Pen, Time: 3:45 PM Margarita Mosley Work Phone: [facility] Work Phone: Start: 07-14-2021 Nutrition therapy Margarita Baez Ma bianca Work Phone: [facility] Work Phone: Start: 07-14-2021 Patient encounter procedure Margarita Mosley Work Phone: [facility] Work Phone: Start: 07-12-2021 AUDIT Margarita Fernando n Work Phone: [facility] [address] Work Phone: Start: 07-08-2021 Office outpatient vi sit 15 minutes Margarita Mosley Work Phone: [facility] [address] Work Phone: Start: 07-04-2021 End: 07-04-2021 Emergency department patient visit [facility] Start: 06-29-2021 AUDIT Margarita Fernando n Work Phone: [facility] [address] Work Phone: Start: 06-27-2021 Chart Update Margarita Wheelero n Work Phone: [facility] [address] Work Phone: Start: 06-26-2021 Chart Update Margarita Wheelero n Work Phone: [facility] [address] Work Phone: Start: 06-25-2021 Chart Update Margarita Wheelero n Work Phone: [facility] [address] Work Phone: Start: 06-25-2021 AUDIT Margarita jolley Work Phone: [employer] Work Phone: Start: 06-15-2021 AUDIT Margarita Fernando n Work Phone: [employer] [facility] Work Phone: Start: 05-27-2021 Office outpatient ne w 30 minutes Margarita Mosley Work [facility]: [facility] [employer] Work Phone: Start: 06-17-2019 End: 06-17-2019 Patient encounter procedure CANELO BELTRE [facility] Start: 06-17-2019 End: 06-17-2019 Office outpatient visit 10 minutes Canelo Beltre Work Phone: [facility] Comment on above: S/P ACL repair (Prim jose Dx) Start: 05-16-2019 End: 05-20-2019 Patient encounter procedure [facility] Start: 05-16-2019 End: 05-16-2019 Patient encounter procedure Canelo Beltre Work Phone: [facility] Comment on above: S/P ACL repair (Prim jose Dx) Start: 05-07-2019 End: 05-11-2019 Patient encounter procedure [facility] Start: 05-07-2019 End: 05-07-2019 Patient encounter procedure Canelo Beltre Work Phone: [facility] Comment on above: S/P ACL repair (Prim jose Dx) Start: 04-30-2019 End: 05-04-2019 Patient encounter procedure [facility] Start: 04-22-2019 End: 04-26-2019 Patient encounter procedure [facility] Start: 04-22-2019 End: 04-22-2019 Patient encounter procedure Canelo Beltre Work Phone: [facility] Comment on above: S/P ACL repair (Prim jose Dx) Start: 04-22-2019 End: 04-22-2019 Documentation procedure Soheila Darrian [facility] Start: 04-17-2019 End: 04-21-2019 Patient encounter procedure CANELO [facility] Start: 04-17-2019 End: 04-17-2019 Patient encounter procedure Canelo Beltre Work Phone: [facility] Comment on above: S/P ACL repair (Prim jose Dx) Start: 04-11-2019 End: 04-15-2019 Patient encounter procedure [facility] Start: 04-11-2019 End: 04-11-2019 Patient encounter procedure Canelo Beltre Work Phone: [facility] Comment on above: S/P ACL repair (Prim jose Dx) Start: 04-04-2019 End: 04-08-2019 Patient encounter procedure CANELO [facility] Start: 04-04-2019 End: 04-04-2019 Patient encounter procedure Canelo Beltre Work Phone: [facility] Comment on above: S/P ACL repair (Prim jose Dx) Start: 03-21-2019 End: 03-25-2019 Patient encounter procedure CANELOMARISSA DOE [facility] Start: 03-21-2019 End: 03-21-2019 Patient encounter procedure Canelo Beltre Work Phone: [facility] Comment on above: S/P ACL repair (Prim jose Dx) Start: 03-18-2019 End: 03-18-2019 Patient encounter procedure CANELO BELTRE [facility] Start: 03-18-2019 End: 03-18-2019 Office outpatient visit 10 minutes Canelo Beltre Work Phone: [facility] Comment on above: S/P ACL repair (Prim jose Dx) Start: 03-10-2019 End: 03-14-2019 Patient encounter procedure ROSENDA A. [facility] Start: 03-10-2019 End: 03-10-2019 Patient encounter procedure Rosenda Beltre Work Phone: [facility] Comment on above: S/P ACL repair (Prim jose Dx) Start: 03-07-2019 End: 03-11-2019 Patient encounter procedure ROSENDA A. [facility] Start: 03-07-2019 End: 03-07-2019 Patient encounter procedure Rosenda Beltre Work Phone: [facility] Comment on above: S/P ACL repair (Prim jose Dx) Start: 03-04-2019 End: 03-08-2019 Patient encounter procedure ROSENDA A. [facility] Start: 03-04-2019 End: 03-04-2019 Patient encounter procedure Rosenda Beltre Work Phone: [facility] Comment on above: S/P ACL repair (Prim jose Dx) Start: 02-27-2019 End: 03-03-2019 Patient encounter procedure CANELO DOE [facility] Start: 02-27-2019 End: 02-27-2019 Patient encounter procedure Canelo Beltre Work Phone: [facility] Comment on above: S/P ACL repair (Prim jose Dx) Start: 02-24-2019 End: 02-28-2019 Patient encounter procedure CANELO DOE [facility] Start: 02-24-2019 End: 02-24-2019 Patient encounter procedure Canelo Beltre Work Phone: [facility] Comment on above: S/P ACL repair (Prim jose Dx) Start: 02-21-2019 End: 02-25-2019 Patient encounter procedure CANELO DOE [facility] Start: 02-21-2019 End: 02-21-2019 Patient encounter procedure Canelo Beltre Work Phone: [facility] Comment on above: S/P ACL repair Start: 02-18-2019 End: 02-18-2019 Patient encounter procedure CANELO BELTRE [facility] Start: 02-18-2019 End: 02-18-2019 Postop follow up visit related to original px Canelo Beltre Work Phone: [facility] Comment on above: S/P ACL repair (Prim jose Dx) Start: 02-12-2019 Patient encounter procedure [facility] Start: 02-12-2019 End: 02-12-2019 Patient encounter procedure Canelo Beltre Work Phone: [facility] Comment on above: S/P ACL repair (Prim jose Dx) Start: 02-10-2019 End: 02-14-2019 Patient encounter procedure [facility] Start: 02-10-2019 End: 02-10-2019 Patient encounter procedure Canelo Beltre Work Phone: [facility] Comment on above: S/P ACL repair (Prim jose Dx) Start: 02-05-2019 End: 02-09-2019 Patient encounter procedure [facility] Start: 02-05-2019 End: 02-05-2019 Patient encounter procedure Canelo Beltre Work Phone: [facility] Comment on above: S/P ACL repair (Prim jose Dx) Start: 01-29-2019 End: 02-02-2019 Patient encounter procedure [facility] Start: 01-29-2019 End: 01-29-2019 Patient encounter procedure Canleo Beltre Work Phone: [facility] Comment on above: S/P ACL repair (Prim jose Dx) Start: 01-27-2019 End: 01-31-2019 Patient encounter procedure [facility] Start: 01-27-2019 End: 01-27-2019 Patient encounter procedure Canelo Beltre Work Phone: [facility] Comment on above: S/P ACL repair (Prim jose Dx) Start: 01-22-2019 End: 01-26-2019 Patient encounter procedure [facility] Start: 01-22-2019 End: 01-22-2019 Patient encounter procedure Canelo Beltre Work Phone: [facility] Comment on above: S/P ACL repair (Prim jose Dx) Start: 01-21-2019 End: 01-21-2019 Patient encounter procedure CANELO DOE [facility] Start: 01-21-2019 End: 01-21-2019 Postop follow up visit related to original px Canelo Beltre Work Phone: [facility] Comment on above: S/P ACL repair (Prim jose Dx) Start: 01-20-2019 End: 01-24-2019 Patient encounter procedure [facility] Start: 01-20-2019 End: 01-20-2019 Patient encounter procedure Canelo Beltre Work Phone: [facility] Comment on above: S/P ACL repair (Prim jose Dx) Start: 01-16-2019 End: 01-20-2019 Patient encounter procedure [facility] Start: 01-16-2019 End: 01-16-2019 Patient encounter procedure Canelo Beltre Work Phone: [facility] Comment on above: S/P ACL repair (Prim jose Dx) Start: 01-13-2019 End: 01-17-2019 Patient encounter procedure [facility] Start: 01-13-2019 End: 01-13-2019 Patient encounter procedure Canelo Beltre Work Phone: [facility] Comment on above: S/P ACL repair (Prim jose Dx) Start: 01-10-2019 End: 01-14-2019 Patient encounter procedure [facility] Start: 01-10-2019 End: 01-10-2019 Patient encounter procedure Canelo Beltre Work Phone: [facility] Comment on above: S/P ACL repair (Prim jose Dx) Start: 01-07-2019 End: 01-11-2019 Patient encounter procedure [facility] Start: 01-07-2019 End: 01-07-2019 Patient encounter procedure Canelo Beltre Work Phone: [facility] Comment on above: S/P ACL repair Start: 12-31-2018 End: 01-04-2019 Patient encounter procedure CANELO BELTRE [facility] Start: 12-31-2018 End: 12-31-2018 Postop follow up visit related to original px Canelo Beltre Work Phone: [facility] Comment on above: Anterior cruciate li gament complete tear, left, subsequent encounter (Primary Dx); S/P ACL repair Start: 12-19-2018 Patient encounter procedure KOBI RAMIREZ [facility] Start: 12-17-2018 End: 12-19-2018 Patient encounter procedure CANELO BELTRE [facility] Start: 12-16-2018 End: 12-16-2018 Patient encounter procedure Margarita Mosley Facility:[facility] Start: 12-11-2018 End: 12-11-2018 Patient encounter procedure CANELO BELTRE [facility] Start: 12-04-2018 End: 12-05-2018 Patient encounter procedure Canelo Longder Facility:[facility] Start: 11-27-2018 End: 11-27-2018 Patient encounter procedure CANELO BELTRE [facility] Start: 11-27-2018 End: 11-27-2018 Office outpatient visit 10 minutes Canelo Nader [place] Work Phone: [facility] Comment on above: Sprain of left knee, unspecified ligament, initial encounter (Primary Dx) Start: 11-08-2018 Patient encounter procedure KOBI RAMIREZ [facility] Start: 10-31-2018 End: 11-01-2018 Patient encounter procedure Canleo Beltre Facility:[facility] Start: 10-16-2018 End: 10-16-2018 Patient encounter procedure CANELO BELTRE [facility] Start: 10-16-2018 End: 10-16-2018 Office outpatient visit 10 minutes Canelo Longder Work Phone: [facility] Comment on above: Sprain of left knee, unspecified ligament, initial encounter (Primary Dx); Pain and swelling of left knee Start: 10-15-2018 Patient encounter procedure Canelo A [place] Facility:[facility] Start: 09-19-2018 End: 09-19-2018 Patient encounter procedure Canelo Longder Work Phone: [facility] Start: 09-11-2018 End: 09-11-2018 Patient encounter procedure CANELO BELTRE [facility] Start: 08-11-2018 End: 08-11-2018 Emergency department patient visit Ab Rojas Facility:[facility] Patient encounter procedure Margarita Mosley Work Phone: [address] Work Phone: Procedures Date Procedure Procedure Detail Performing Clinician Start: 05-20-2025 Blood pressure withi n normal parameters - no follow-up required Enrique Dyer MD Work Phone: Start: 05-20-2025 BMI outside of lloyd l parameters - no follow-up plan/reason not given Enrique Dyer MD Work Phone: Start: 05-20-2025 Tobacco screening or cessation counseling not performed - unknown reason Enrique Dyer MD Work Phone: Start: 05-20-2025 Documentation of cur rent medications Enrique Dyer MD Work Phone: Start: 05-20-2025 Pain assessment documented as positive - no follow-up/reason not given Enrique Dyer MD Work Phone: Start: 12-03-2024 Aftercare Orthopaedic aftercare E chris Dyer MD Work Phone: Start: 12-03-2024 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 Margarita Mosley MD Work Phone: Start: 08-06-2024 Adult depression screening assessment Margarita Mosley MD Work Phone: Start: 02-21-2024 UA DIP,URINE HCG (POC) Chris Law MD Work Phone: Start: 11-26-2023 URINE OB DIP B/O Mare Villalba APRN.CNM Work Phone: Start: 11-22-2023 URINE OB DIP B/O Chris monk MD Work Phone: Start: 11-19-2023 URINE OB DIP B/O Francheska Bagley MD Work Phone: Start: 11-06-2023 URINE OB DIP B/O Annika Lehman MD Work Phone: Start: 11-01-2023 URINE OB DIP B/O Annika Lehman MD Work Phone: Start: 10-26-2023 URINE OB DIP B/O Annika Lehman MD Work Phone: Start: 08-24-2023 URINE OB DIP B/O Mare Villalba AUTOMOTIVE TEACHER.CNM Work Phone: Start: 07-27-2023 URINE OB DIP B/O Danilo Nava MD Work Phone: Start: 06-29-2023 URINE OB DIP B/O Manjula Whittaker MD Work Phone: Start: 05-31-2023 Us nuchal translucency 1st gestation Maranda Engle AUTOMOTIVE TEACHER.HYDRATE CONTROL TENDER Work Phone: Start: 05-02-2023 GONORRHEA/CHLAMYDIA NAAT [facility] Provider Start: 04-29-2023 Transvaginal obstetr ic ultrasonography Start: 04-12-2023 Antibody screen Nurse Leonela smith Work Phone: Start: 04-12-2023 CBC panel - Blood by Automated count [facility] Provider Start: 04-12-2023 HEP B SURF AG SCRN [facility] Provider Start: 04-12-2023 HEPATITIS C ANTIBODY IA WITH CONFIRMATION [facility] Provider Start: 04-12-2023 HIV 1 2 COMBO(AG/AB) ,WITH REFLEX TO DIFFERENTIATION [facility] Provider Start: 04-12-2023 RUBELLA IGG AB [facility] Prov ider Start: 04-12-2023 TYPE + SCREEN (EXTER NAL LAB) [facility] Provider Start: 04-12-2023 Urine culture Start: 12-26-2021 Antibody screen Comment on above: Performed By: #### C BC #### [place] [address] Start: 06-24-2021 Antibody screen Comment on above: Performed By: #### T +S #### [id number] [place] [address] Extraction of wisdom tooth Margarita Nestor Mosley Work Phone: Repair of anterior cruciate ligament of knee joint Margarita Mosley Work Phone: Comment on above: 2019; Plan of Treatment Date Care Activity Detail Author Start: 09-13-2033 Urine microalbumin profile DTaP,Tdap,Td Vaccine (3 - Td or Tdap) [facility] Start: 10-12-2031 Urine microalbumin profile DTaP,Tdap,Td Vaccine (2 - Td or Tdap) [facility] Start: 01-09-2029 Screening for malign ant neoplasm of cervix [facility] Start: 02-24-2027 PAP TESTING PAP TESTING [facility] Start: 02-24-2027 Screening for malign ant neoplasm of cervix Pap Testing [facility] Start: 02-25-2026 Annual PCP Team Rn Child kris Disease Visit Annual PCP Team Chronic Disease Visit [facility] Start: 10-06-2025 Annual PCP Team Rn Child kris Disease Visit Annual PCP Team Chronic Disease Visit [facility] Start: 08-06-2025 Annual PCP Team Rn Child kris Disease Visit Annual PCP Team Chronic Disease Visit [facility] Start: 08-06-2025 Depression Screening Depression Scre ening [facility] Start: 06-25-2025 End: 06-25-2025 Patient encounter procedure 06/25/2025 1:40 PM EDT Office Visit OB/Gynecology [address] [place] [id number] Chris Law MD [address] [place] [id number] Annual OB/Gynecology Comment on above: Annual Start: 05-11-2025 Influenza vaccination C [facility] Start: 02-25-2025 End: 05-27-2025 CBC W Auto Differential panel - Blood COMPLETE BLOOD COUNT AND DIFFERENTIAL Lab Routine RUQ pain Expected: 02/25/2025, Expires: 05/27/2025 [facility] Work Phone: Comment on above: Expected: 02/25/2025 , Expires: 05/27/2025 Start: 02-25-2025 End: 05-27-2025 Comprehensive metabolic 2000 panel - Serum or Plasma COMPREHENSIVE METABOLIC PANEL Lab Routine RUQ pain Expected: 02/25/2025, Expires: 05/27/2025 [facility] Comment on above: Expected: 02/25/2025 , Expires: 05/27/2025 Start: 02-20-2025 BP Controlled (<130/80) BP Controlle d (<130/80) [facility] Start: 02-13-2025 End: 02-13-2025 Patient encounter procedure 02/13/2025 4:00 PM EDT Office [facility] [address] [facility] [address] [place], [place] [id number] Chris Law MD [address] [facility] [place] [id number] Annual OB/Gynecology Comment on above: Annual Start: 02-09-2025 End: 02-09-2025 Patient encounter procedure 02/09/2025 4:30 PM EDT Office Visit [facility] [address] [place] [phone] Margarita Mosley MD [address] [place], [place] [id number] 6 Month Follow Up [facility] Comment on above: 6 Month Follow Up Start: 02-04-2025 End: 02-04-2025 Patient encounter procedure 02/04/2025 2:00 PM EDT Office Visit [facility] [address] [place] [phone] Margarita Mosley MD [address] [place], [place] [address] 6 Month Follow Up [facility] Comment on above: 6 Month Follow Up Start: 01-16-2025 End: 01-16-2025 Patient encounter procedure 01/16/2025 4:00 PM EDT Office Visit OB/Gynecology [address] [place] [address] Chris Law MD [address] [facility] [place] [address] Annual OB/Gynecology Comment on above: Annual Start: 01-09-2025 BP Controlled (<130/80) BP Controlle d (<130/80) [facility] Start: 01-09-2025 Screening for malign ant neoplasm of cervix Cervical Cancer Screening [facility] Start: 11-21-2024 BP Controlled (<130/80) BP Controlle d (<130/80) [facility] Start: 11-18-2024 BP Controlled (<130/80) BP Controlle d (<130/80) [facility] Start: 10-26-2024 BP Controlled (<130/80) BP Controlle d (<130/80) [facility] Start: 10-09-2024 BP Controlled (<130/80) BP Controlle d (<130/80) [facility] Start: 10-06-2024 End: 10-06-2024 Patient encounter procedure 10/06/2024 10:20 AM EST Office Visit [facility] [address] [place] [phone] Margarita Mosley MD [address] [place], [place] [address] ER Follow Up for Back Pain [facility] Comment on above: ER Follow Up for Jayden k Pain Start: 10-01-2024 [facility] Start: 08-24-2024 BP Controlled (<130/80) BP Controlle d (<130/80) [facility] Start: 08-06-2024 End: 11-05-2024 CBC W Auto Differential panel - Blood COMPLETE BLOOD COUNT AND DIFFERENTIAL Lab Routine Screening for deficiency anemia Expected: 08/06/2024, Expires: 11/05/2024 [facility] Comment on above: Expected: 08/06/2024 , Expires: 11/05/2024 Start: 08-06-2024 End: 11-05-2024 Comprehensive metabolic 2000 panel - Serum or Plasma COMPREHENSIVE METABOLIC PANEL Lab Routine Wellness examination Hypertension, essential Expected: 08/06/2024, Expires: 11/05/2024 [facility] Work Phone: Comment on above: Expected: 08/06/2024 , Expires: 11/05/2024 Start: 08-06-2024 End: 11-05-2024 Lipid 1996 panel - Serum or Plasma LIPID PANEL BASIC Lab Routine Lipid screening Expected: 08/06/2024, Expires: 11/05/2024 [facility] Comment on above: Expected: 08/06/2024 , Expires: 11/05/2024 Start: 07-27-2024 BP Controlled (<130/80) BP Controlle d (<130/80) [facility] Start: 06-29-2024 BP Controlled (<130/80) BP Controlle d (<130/80) [facility] Start: 05-31-2024 BP Controlled (<130/80) BP Controlle d (<130/80) [facility] Start: 05-11-2024 Covid-19 Vaccine ( season) Covid-19 Vaccine ( season) [facility] Start: 05-11-2024 Influenza vaccination C [facility] Start: 04-25-2024 ANNUAL PCP TEAM BILLING CONTROL CLERK KRIS DISEASE VISIT ANNUAL PCP TEAM CHRONIC DISEASE VISIT [facility] Start: 03-25-2024 Patient encounter procedure ANNUAL, Provider: Anton Hernandez, Status: Jose, Time: 2:[address] Work Phone: Start: 02-21-2024 End: 02-21-2024 Patient encounter procedure 02/21/2024 3:20 PM EDT Office Visit OB/Gynecology [address] [place] [id number] Chris Law MD [address] [place] [id number] Colposcopy OB/Gynecology Comment on above: Colposcopy Start: 02-06-2024 End: 02-06-2024 Patient encounter procedure 02/06/2024 4:40 PM EDT Office Visit [facility] [address] [place] [phone] Margarita Mosley MD [address] [place] [address] follow up needs refill [facility] Comment on above: follow up needs refi ll Start: 01-10-2024 End: 04-10-2024 GLUC WALLACE, 2-HR NON-GEST, 75 GM, FASTING GLUC WALLACE, 2-HR NON-GEST, 75 GM, FASTING Lab Routine care and examination History of gestational diabetes Expected: 01/10/2024, Expires: 04/10/2024 [facility] Work Phone: Comment on above: Expected: 01/10/2024 , Expires: 04/10/2024 Start: 12-02-2023 Patient discharge [facility] Start: 12-01-2023 Application of abdom inal corset [facility] Start: 11-30-2023 End: 12-01-2023 [facility] Start: 11-30-2023 End: 11-30-2023 Notification of physician [facility] Start: 11-30-2023 Application of abdom inal corset [facility] Start: 11-30-2023 Introduction of urin jose catheter [facility] Start: 11-30-2023 Administration of medication [facility] Start: 11-30-2023 Ambulation therapy management [facility] Start: 11-30-2023 Application of device W [facility] Start: 11-30-2023 End: 11-30-2023 Application of intermittent pneumatic compression device [facility] Start: 11-30-2023 Assessment of risk o f venous thromboembolism [facility] Start: 11-30-2023 Catheterization of vein [facility] Start: 11-30-2023 Deep breathing and coughing exercises [facility] Start: 11-30-2023 Exercises [facility] Start: 11-30-2023 Measuring intake and output [facility] Start: 11-30-2023 Procedure discontinued [facility] Start: 11-30-2023 Provision of activit y privileges [facility] Start: 11-30-2023 Skin care [facility] Start: 11-30-2023 Vital signs measurements [facility] Start: 11-30-2023 Wound care [facility] Start: 11-30-2023 section Primary C Sec tion (Not Applicable) [facility] Start: 11-30-2023 Admission procedure [facility] Start: 11-30-2023 Application of intermittent pneumatic compression device [facility] Start: 11-30-2023 External monit or surveillance [facility] Start: 11-30-2023 Preoperative care [facility] Start: 11-30-2023 Consultation [facility] Start: 11-14-2023 ANNUAL PCP TEAM BILLING CONTROL CLERK KRIS DISEASE VISIT ANNUAL PCP TEAM CHRONIC DISEASE VISIT [facility] Start: 11-14-2023 BP CONTROLLED (<130/80) BP CONTROLLE D (<130/80) [facility] Start: 09-24-2023 End: 12-24-2023 CBC W Auto Differential panel - Blood CBC + DIFF Lab Routine 25 weeks gestation of History of gestational hypertension with care elsewhere, antepartum Expected: 09/24/2023 (Approximate), Expires: 12/24/2023 [facility] Work Phone: Comment on above: Expected: 09/24/2023 (Approximate), Expires: 12/24/2023 Start: 09-24-2023 End: 12-24-2023 GEST GLUC SCREEN, 1-HR, 50 GM, NON-FASTING GEST GLUC SCREEN, 1-HR, 50 GM, NON-FASTING Lab Routine 25 weeks gestation of History of gestational hypertension with care elsewhere, antepartum Expected: 09/24/2023 (Approximate), Expires: 12/24/2023 [facility] Work Phone: Comment on above: Expected: 09/24/2023 (Approximate), Expires: 12/24/2023 Start: 09-24-2023 End: 12-24-2023 SYPHILIS TOTAL W/REFLEX SYPHILIS TOTAL W/REFLEX Lab Routine 25 weeks gestation of History of gestational hypertension with care elsewhere, antepartum Expected: 09/24/2023 (Approximate), Expires: 12/24/2023 [facility] Work Phone: Comment on above: Expected: 09/24/2023 (Approximate), Expires: 12/24/2023 Start: 09-10-2023 Behavioral Health Screening Behavioral Health Screening [facility] Start: 09-10-2023 Depression Assessment Depression Ass essment [facility] Start: 05-31-2023 End: 07-31-2023 Chromosome 21 trisomy [Presence] in Blood or Tissue by Cytogenetics [facility] Work Phone: Comment on above: Expected: 05/31/2023 , Expires: 07/31/2023 Start: 05-16-2023 End: 07-16-2023 Comprehensive metabolic 2000 panel - Serum or Plasma COMP METABOLIC PANEL Lab Routine History of gestational hypertension Expected: 05/16/2023, Expires: 07/16/2023 [facility] Work Phone: Comment on above: Expected: 05/16/2023 , Expires: 07/16/2023 Start: 05-16-2023 End: 07-16-2023 Hemoglobin A1c in Blood HGB A1C Lab Routine History of gestational diabetes in prior , currently Expected: 05/16/2023, Expires: 07/16/2023 [facility] Work Phone: Comment on above: Expected: 05/16/2023 , Expires: 07/16/2023 Start: 05-16-2023 End: 05-16-2024 NUCHAL TRANSLUCENCY WHI NUCHAL TRANSLUCENCY WHI Anc Imaging Routine 10 weeks gestation of Expected: 05/16/2023, Expires: 05/16/2024 [facility] Work Phone: Comment on above: Expected: 05/16/2023 , Expires: 05/16/2024 Start: 05-16-2023 End: 07-16-2023 Protein/Creatinine [Mass Ratio] in Urine PROTEIN CREATININE RATIO Lab Routine History of gestational hypertension Expected: 05/16/2023, Expires: 07/16/2023 [facility] Work Phone: Comment on above: Expected: 05/16/2023 , Expires: 07/16/2023 Start: 05-16-2023 End: 07-16-2023 Thyrotropin [Units/volume] in Serum or Plasma TSH BLD Lab Routine History of gestational hypertension Expected: 05/16/2023, Expires: 07/16/2023 [facility] Work Phone: Comment on above: Expected: 05/16/2023 , Expires: 07/16/2023 Start: 05-11-2023 Covid-19 Vaccine () Covid-19 Vaccine () [facility] Start: 05-11-2023 Influenza vaccination [facility] Start: 03-20-2023 Patient encounter procedure ANNUAL, Provider: Anton Hernandez, Status: Pen, Time: 2:15 PM [employer] Work Phone: Start: 05-11-2022 Influenza vaccination INFLUENZA (#1) [facility] Start: 03-10-2022 FUV, Provider: Jose Carlos Petty, Status: Pen, Time: 10:15 AM FUV, Provider: Jose Carlos Petty, Status: Pen, Time: 10:15 AM [employer] Work Phone: Start: 02-24-2022 COLPOSCOPY, Provider : Jose Carlos Petty, Status: Pen, Time: 9:30 AM COLPOSCOPY, Provider: Jose Carlos Petty, Status: Pen, Time: 9:30 AM [employer] Work Phone: Start: 02-03-2022 Patient encounter procedure [facility] Start: 02-03-2022 PPV, Provider: Jose Carlos Petty, Status: Pen, Time: 1:00 PM PPV, Provider: Jose Carlos Petty, Status: Pen, Time: 1:00 PM [employer] Work Phone: Start: 01-02-2022 Patient encounter procedure [facility] Tao[facility] Start: 12-27-2021 EPVOB, Provider: Jose Carlos Petty, Status: Jose, Time: 2:00 PM EPVOB, Provider: Jose Carlos Petty, Status: Jose, Time: 2:00 PM [facility] Work Phone: Start: 12-27-2021 End: 12-28-2022 [facility] Comment on above: Consult provider meenu or to administration. Push over more than 2 minutes. Systolic greater than or equal to 160 OR Diastolic greater than or equal to 110. Contraindication: coronary artery disease (CAD); Caution in suspected CAD. Consult provider meenu or to administration. Systolic greater than or equal to 160 OR Diastolic greater than or equal to 110. Capsules administered orally and swallowed whole; Do not puncture or crush; Do not administer sublingually. administer if patien t screen is non- immune or equivocal After and PRN Before Discharge Consult provider meenu or to administration. Conditional order. C onsult Provider prior to administration. Max dose of 16mg / 2 4 hours Conditional order. 6 00 milliunits/min x 30 mins., then 60 milliunits/min for the remainder of the bag. Consult Provider prior to administration. IV push over 5 minut es Start: 12-26-2021 End: 12-27-2022 Sodium Chloride 0.9% IV Bolus . ; DOSE = 500 mL OnceInfuse over 30 minute(s)Clinican Notes: before the beginning of procedure, unless on fluid restrictions. Start: 26-Dec-2021 End: 26-Dec-2022 Ordered: 26-Dec-2021 Ish Bardales Intent Comments: before the beginning of procedure, unless on fluid restrictions. [facility] Comment on above: before the beginning of procedure, unless on fluid restrictions. Start: 12-26-2021 Functional Risk Scre en Request for PRODUCT MARKETER Eval/Tx [facility] Functional Risk Screen Request for PRODUCT MARKETER Eval/Tx Adult [facility] Start: :06 Request Comments: Order entered from Admission Screens. [facility] Comment on above: Order entered from A dmission Screens. Start: 12-20-2021 EPVOB, Provider: Jose Carlos Petty, Status: Pen, Time: 2:00 PM EPVOB, Provider: Jose Carlos Petty, Status: Pen, Time: 2:00 PM [place] [address] [employer] Work Phone: Start: 12-13-2021 EPVOB, Provider: Jose Carlos Petty, Status: Pen, Time: 2:00 PM EPVOB, Provider: Jose Carlos Petty, Status: Pen, Time: 2:00 PM [employer] Work Phone: Start: 12-06-2021 EPVOB, Provider: Jose Carlos Petty, Status: Pen, Time: 2:15 PM EPVOB, Provider: Jose Carlos Petty, Status: Pen, Time: 2:15 PM [employer] Work Phone: Start: 11-30-2021 EPVOB, Provider: Angie Alba, Status: Pen, Time: 11:30 AM EPVOB, Provider: Angie Alba, Status: Pen, Time: 11:30 AM [employer] Work Phone: Start: 11-29-2021 ULTRASDFUV, Provider : [facility],MGOBGYN, Status: Pen, Time: 10:30 AM ULTRASDFUV, Provider: [facility],MGOBGYN, Status: Pen, Time: 10:30 AM EV-VWTQC-Ryserqj [facility] Work Phone: Start: 11-29-2021 FUVCONTCLI, Provider : Aiyana Tay, Status: Pen, Time: 10:00 AM FUVCONTCLI, Provider: Aiyana Tay, Status: Pen, Time: 10:00 AM MF-QIUJB-Uwlfvbs [place] Work Phone: Start: 11-22-2021 EPVOB, Provider: Jose Carlos Petty, Status: Pen, Time: 2:00 PM EPVOB, Provider: Jose Carlos Petty, Status: Pen, Time: 2:[address] Work Phone: Start: 11-09-2021 EPVOB, Provider: Jose Carlos Petty, Status: Pen, Time: 2:15 PM EPVOB, Provider: Jose Carlos Petty, Status: Pen, Time: 2:[address] Work Phone: Start: 11-01-2021 FUVCONTCLI, Provider : Mitra Reynolds, Status: Pen, Time: 12:30 PM FUVCONTCLI, Provider: Mitra Reynolds, Status: Pen, Time: 12:[address] Work Phone: Start: 11-01-2021 ULTRASDFUV, Provider : [facility],MGOBGYN, Status: Pen, Time: 11:00 AM ULTRASDFUV, Provider: [facility],MGOBGYN, Status: Pen, Time: 11:[address] Work Phone: Start: 10-26-2021 EPVOB, Provider: Anton Hernandez, Status: Pen, Time: 2:15 PM EPVOB, Provider: Anton Hernandez, Status: Pen, Time: 2:[address] Work Phone: Start: 10-12-2021 EPVOB, Provider: Jose Carlos Petty, Status: Pen, Time: 2:00 PM EPVOB, Provider: Jose Carlos Petty, Status: Pen, Time: 2:[address] Work Phone: Start: 09-27-2021 FUVCONTCLI, Provider : Aiyana Tay, Status: Pen, Time: 12:30 PM FUVCONTCLI, Provider: Aiyana Tay, Status: Pen, Time: 12:30 PM DO-BUFWV-Ymlwkfe [facility] Work Phone: Start: 09-27-2021 Patient encounter procedure [employer] [place] Start: 09-27-2021 ULTRASDFUV, Provider : [facility],MGOBGYN, Status: Pen, Time: 11:00 AM ULTRASDFUV, Provider: [facility],MGOBGYN, Status: Pen, Time: 11:00 AM XM-DCBQY-Bvydjuv [address]nd Fl Work Phone: Start: 09-16-2021 EPVOB, Provider: Jose Carlos Petty, Status: Pen, Time: 3:30 PM EPVOB, Provider: Jose Carlos Petty, Status: Pen, Time: 3:30 PM [facility] Work Phone: Start: 09-16-2021 [facility] Start: 08-19-2021 EPVOB, Provider: Jose Carlos Petty, Status: Pen, Time: 3:30 PM EPVOB, Provider: Jose Carlos Petty, Status: Pen, Time: 3:30 PM [facility] Work Phone: Start: 08-09-2021 Patient encounter procedure CONSULT, Provider: Aiyana Tay, Status: Pen, Time: 1:30 PM [facility] Work Phone: Start: 08-09-2021 ULTRASDANT, Provider : [facility],MGOBGYN, Status: Pen, Time: 12:30 PM ULTRASDANT, Provider: [facility],MGOBGYN, Status: Pen, Time: 12:30 PM [facility] Work Phone: Start: 08-02-2021 COLPOSCOPY, Provider : Jose Carlos Petty, Status: Pen, Time: 11:30 AM COLPOSCOPY, Provider: Jose Carlos Petty, Status: Pen, Time: 11:30 AM [facility] Work Phone: Start: 07-22-2021 EPVOB, Provider: Jose Carlos Petty, Status: Pen, Time: 3:45 PM EPVOB, Provider: Jose Carlos Petty, Status: Pen, Time: 3:45 PM [facility] Work Phone: Start: 07-22-2021 Patient encounter procedure Thu Cruz Start: 07-14-2021 Nutrition therapy NSGESTDIAB, Provider: [id number] NUTRITION DIETITIAN,[id number], Status: Pen, Time: 2:00 PM [place] [address] [employer] Work Phone: Start: 07-08-2021 EPVOB, Provider: Angie Alba, Status: Pen, Time: 3:45 PM EPVOB, Provider: Angie Alba, Status: Pen, Time: 3:45 PM [facility] Work Phone: Start: 07-08-2021 [facility] Start: 07-03-2021 HPV TESTING HPV TESTING [facility] Start: 07-03-2021 PAP TESTING PAP TESTING [facility] Start: 07-03-2021 Screening for malign ant neoplasm of cervix HPV Testing [facility] Start: 06-24-2021 EPVOB, Provider: Jose Carlos Petty, Status: Pen, Time: 3:15 PM EPVOB, Provider: Jose Carlos Petty, Status: Pen, Time: 3:15 PM [facility] [employer] Work Phone: Start: 06-17-2019 End: 06-17-2019 Office Visit 06/17/2019 Office Visit Sports Medicine [place] [address] [place] [address] [phone] [facility] Start: 05-16-2019 End: 05-16-2019 Treatment 05/16/2019 Treatment Rehabilitation Canelo Beltre MD [address] [place] [address] [phone] Elina Vásquez PTA [facility] Start: 05-11-2019 Influenza vaccinatio n given [facility] Start: 04-30-2019 End: 04-30-2019 Treatment 04/30/2019 Treatment Rehabilitation Canelo Beltre MD [address] [place], [facility] Soheila Colmenares, PT [facility] Start: 04-22-2019 End: 04-22-2019 Treatment 04/22/2019 Treatment Canelo Taylor MD [address] [place] [id number] Soheila Colmenares, PT [facility] Start: 04-18-2019 End: 04-18-2019 Treatment 04/18/2019 Treatment Rehabilitation Canelo Beltre MD [address] [place], [facility] Elina Vásquez, [facility] Start: 04-17-2019 End: 04-17-2019 Treatment 04/17/2019 Treatment Rehabilitation Canelo Beltre MD [address] [place], [facility] Soheila Colmenares, [facility] Start: 04-11-2019 End: 04-11-2019 Treatment 04/11/2019 Treatment Canelo Taylor MD [address] [place], [facility] Elina Vásquez [facility] Start: 03-21-2019 End: 03-21-2019 Treatment 03/21/2019 Treatment Rehabilitation Canelo Beltre MD [address] [place] [id number] Elina Vásquez [facility] Start: 03-18-2019 End: 03-18-2019 Follow-Up 03/18/2019 Follow-Up Sports Medicine Canelo Beltre MD [address] [place] [id number] [facility] Start: 03-14-2019 End: 03-14-2019 Treatment 03/14/2019 Treatment Rehabilitation Rosenda Beltre, HYDRATE CONTROL TENDER [address] [place] [address] [phone] Dori Moya [facility] Start: 03-10-2019 End: 03-10-2019 Treatment [facility] Start: 03-07-2019 End: 03-07-2019 Treatment 03/07/2019 Treatment Rosenda Taylor, HYDRATE CONTROL TENDER [address] [place] [address] [phone] Elina Vásquez [facility] Start: 03-04-2019 End: 03-04-2019 Treatment 03/04/2019 Treatment Rosenda Taylor, HYDRATE CONTROL TENDER [address] [place] [address] [phone] Soheila Colmenares PT [facility] Start: 02-27-2019 End: 02-27-2019 Treatment [facility] Start: 02-24-2019 End: 02-24-2019 Treatment [facility] Start: 02-21-2019 End: 02-21-2019 Treatment 02/21/2019 Treatment Rehabilitation Canelo Beltre MD [address] [place] [address] [phone] Daniel Mcnally [facility] Start: 02-18-2019 End: 02-18-2019 Follow-Up 02/18/2019 Follow-Up Sports Medicine Canelo Beltre MD [address] [place] [address] [phone] [facility] Start: 02-12-2019 End: 02-12-2019 Treatment 02/12/2019 Treatment Canelo Taylor MD [address] [place] [address] [phone] Soheila Colmenares, PT [facility] Start: 02-10-2019 End: 02-10-2019 Treatment 02/10/2019 Treatment Canelo Taylor MD [address] [place] [id number] Soheila Colmenares, PT [facility] Start: 02-05-2019 End: 02-05-2019 Treatment 02/05/2019 Treatment Canelo Taylor MD [address] [place] [id number] Soheila Colmenares, [facility] Start: 02-03-2019 End: 02-03-2019 Treatment 02/03/2019 Treatment Canelo Taylor MD [address] [place] [address] [place] [address] Soheila Colmenares, [facility] Start: 01-29-2019 End: 01-29-2019 Treatment 01/29/2019 Treatment Rehabilitation Canelo Beltre MD [address] [place] [address] [address] [place] [id number] Soheila Colmenares, [facility] Start: 01-27-2019 End: 01-27-2019 Treatment 01/27/2019 Treatment Canelo Taylor MD [address] [place] [address] [place] [address] Soheila Colmenares, [facility] Start: 01-22-2019 End: 01-22-2019 Treatment 01/22/2019 Treatment Rehabilitation Canelo Beltre MD [address] [place] [address] [address] [place] [phone] Soheila Colmenares, [facility] Start: 01-21-2019 End: 01-21-2019 Follow-Up 01/21/2019 Follow-Up Sports Medicine [place] [address] [phone] [facility] Start: 01-20-2019 End: 01-20-2019 Treatment 01/20/2019 Treatment Rehabilitation Canelo Beltre MD [address] [place] [address] [phone] Soheila Colmenares, PT [facility] Start: 01-16-2019 End: 01-16-2019 Treatment 01/16/2019 Treatment Rehabilitation Canelo Beltre MD [address] [place] [address] [phone] Soheila Colmenares, PT [facility] Start: 01-13-2019 End: 01-13-2019 Treatment 01/13/2019 Treatment Rehabilitation Canelo Beltre MD [address] [place] [address] [phone] Iris Kelly, [facility] Start: 01-10-2019 End: 01-10-2019 Treatment 01/10/2019 Treatment Rehabilitation Canelo Beltre MD [address] [place] [address] [phone] Dori Moya, [facility] Start: 10-09-2018 End: 10-09-2018 Ambulatory 10/09/2018 Office Visit Sports Medicine Canelo Beltre MD [address] [place] [address] [phone] [facility] Start: 2018 HPV Vaccine (1 - 3-d ose SCDM series) HPV Vaccine (1 - 3-dose SCDM series) [facility] Start: 05-11-2018 Influenza vaccinatio n given SEQUENTIAL INFLUENZA VACCINE (#1) [facility] Start: 2010 Hepatitis B Vaccine (1 of 3 - 19+ 3-dose series) Hepatitis B Vaccine (1 of 3 - 19+ 3-dose series) [facility] Start: 2010 Pneumococcal vaccination Pneum ococcal Vaccine (1 of 2 - PCV) [facility] Start: 2010 Urine microalbumin profile [facility] Start: 2009 BP CONTROLLED (<130/80) BP CONTROLLE D (<130/80) [facility] Start: 2009 HIV SCREENING HIV SCREENING [facility] Start: 1997 PNEUMOCOCCAL (1 - PCV) PNEUMOCOCCAL (1 - PCV) [facility] Start: 1997 Pneumococcal vaccination [facility] Start: 1994 History and physical examination, annual for health maintenance Wellness Visit [facility] Start: 1991 COVID-19 VACCINE (#1) COVID-19 VACCI NE (#1) [facility] Start: 1991 Depression screening using PHQ-9 (Patient Health Questionnaire 9) score DEPRESSION SCREENING (PHQ9) [facility] Start: 1991 HEPATITIS B (1 of 3 - 3-dose series) HEPATITIS B (1 of 3 - 3-dose series) [facility] Start: 1991 Hepatitis B Vaccine (1 of 3 - 3-dose series) Hepatitis B Vaccine (1 of 3 - 3-dose series) [facility] Start: 1991 Screening for malign ant neoplasm of cervix PAP SMEAR [facility] Start: 1991 Tetanus vaccination TETANUS EVERY 10 YR [facility] Bacteria identified in Urine by Culture URINE CULTURE Microbiology Routine 10 weeks gestation of 05/16/2023 2:10 PM EDT [facility] Work Phone: COLPOSCOPY COLPOSCOPY Proce dures Routine ASCUS with positive high risk HPV cervical Ordered: 01/31/2024 [facility] Work Phone: Comment on above: Ordered: 01/31/2024 COLPOSCOPY COLPOSCOPY Proce dures Routine ASCUS with positive high risk HPV cervical Ordered: 02/21/2024 [facility] Work Phone: Comment on above: Ordered: 02/21/2024 End: 12-07-2023 nonstress test NON-STRESS TEST Procedures Routine Gestational diabetes mellitus (GDM) in third trimester, gestational diabetes method of control unspecified 34 weeks gestation of Once per week for 6 Occurrences starting 10/26/2023 until 12/07/2023 [facility] Work Phone: Comment on above: Once per week for 6 Occurrences starting 10/26/2023 until 12/07/2023 End: 10-16-2019 MR Knee Left Without Contrast MR Knee Left Without Contrast Routine Pain and swelling of left knee 1 Occurrences starting 10/16/2018 until 10/16/2019 [facility] Comment on above: 1 Occurrences starti ng 10/16/2018 until 10/16/2019 PAP TEST PAP TEST Lab Radhames patel care and examination Screening for malignant neoplasm of cervix Special screening examination for human papillomavirus (HPV) 01/10/2024 4:02 PM EDT [facility] Patient Education [facility] Work Phone: Patient referral [facility] Work Phone: ROUTINE, GR OUP B STREP PCR ROUTINE, GROUP B STREP PCR Microbiology Routine 35 weeks gestation of 11/06/2023 4:03 PM EST [facility] Work Phone: SURGICAL PATHOLOGY SURGICAL PATH OLOGY Lab Routine ASCUS with positive high risk HPV cervical 02/21/2024 3:56 PM EDT [facility] URINE OB DIP B/O URINE OB DIP B/ O Lab Routine 12 weeks gestation of History of gestational diabetes in prior , currently History of gestational hypertension with care elsewhere, antepartum Ordered: 05/31/2023 [facility] Work Phone: Comment on above: Ordered: 05/31/2023 End: 03-27-2026 US Abdomen RUQ US ABD RIGHT UPPER QUADRANT Radiology Routine RUQ pain 1 Occurrences starting 02/25/2025 until 03/27/2026 [facility] Comment on above: 1 Occurrences starti ng 02/25/2025 until 03/27/2026 US Abdomen RUQ US ABD RIGHT UPP ER QUADRANT Radiology Routine RUQ pain 03/02/2025 1:26 PM EDT [facility] Work Phone: [facility] Immunizations Immunization Date Immunization Notes Care Provider Fa martinez 09-13-2023 tetanus toxoid, redu ana lilia diphtheria toxoid, and acellular pertussis vaccine, adsorbed Mayelin Alainabladimir [employer]OMOTIVE [employer] Work Phone: [facility] 10-12-2021 tetanus toxoid, redu ana lilia diphtheria toxoid, and acellular pertussis vaccine, adsorbed Margarita Mosley Work Phone: [facility] Payers Date Payer Category Payer Self-pay [id number] 12-09-2022 Private Health Insurance [id number] 12-09-2022 Unknown [id number] 10-11-2022 Medicaid [id number] 10-11-2022 Medicaid [id number] 04-26-2019 Unknown MMO MED MUTUAL S UPERMED PPO xxxxxxxxxxxx 2019-Present xxxxxxxxxxxx [id number] 04-26-2019 Unknown [id number] 08-11-2018 Unknown 03-10-2018 Medicaid [employer] MEDICAID [employer] MEDICAID xxxxxxxxxxx 2018-Present xxxxxxxxxxx [id number] 03-10-2018 Unknown [id number] 1991 Unknown [id number] 2.16.840.1.918611.3.579.2 .1991 Unknown [id number] 2.16.840.1.745763.3.579.2 .1991 Unknown [id number] 2.16.840.1.978788.3.579.2 .717 1991 Unknown [id number] 2.16.840.1.975799.3.579.2 .7 1991 Unknown [id number] 2.16.840.1.736563.3.579.2 .903 1991 Unknown [id number] 2.16.840.1.043688.3.579.2 .1991 Unknown [id number] 2.16.840.1.085567.3.579.2 .1991 Unknown [id number] 2.16.840.1.805857.3.579.2 .1991 Unknown [id number] 2.16.840.1.463643.3.579.2 .1991 Unknown [id number] 2.16.840.1.456865.3.579.2 .1991 Unknown [id number] 2.16.840.1.597846.3.579.2 .1991 Unknown [id number] 2.16.840.1.249272.3.579.2 .1991 Unknown [id number] 2.16.840.1.673840.3.579.2 .1991 Unknown [id number] 2.16.840.1.568830.3.579.2 .1991 Unknown [id number] 2.16.840.1.109657.3.579.2 .1991 Unknown [id number] 2.16.840.1.684810.3.579.2 .1991 Unknown [id number] 2.16.840.1.834704.3.579.2 .1991 Unknown [id number] 2.16.840.1.795146.3.579.2 .1991 Unknown [id number] 2.16.840.1.501199.3.579.2 .3 1991 Unknown [id number] 2.16.840.1.798572.3.579.2 .1991 Unknown [id number] 2.16.840.1.848476.3.579.2 .1991 Unknown [id number] 2.16.840.1.004562.3.579.2 .1991 Unknown [id number] 2.16.840.1.316389.3.579.2 .1991 Unknown [id number] 2.16.840.1.161257.3.579.2 .1991 Unknown [id number] 2.16.840.1.200046.3.579.2 .1991 Unknown [id number] 2.16.840.1.925985.3.579.2 .1991 Unknown [id number] 2.16.840.1.187178.3.579.2 .1991 Unknown [id number] 2.16.840.1.642359.3.579.2 .1991 Unknown [id number] 2.16.840.1.852758.3.579.2 .1991 Unknown [id number] 2.16.840.1.105138.3.579.2 .1991 Unknown [id number] 2.16.840.1.830125.3.579.2 .1991 Unknown [id number] 2.16.840.1.432924.3.579.2 .1991 Unknown [id number] 2.16.840.1.395733.3.579.2 .1991 Unknown [id number] 2.16.840.1.249857.3.579.2 .1991 Unknown [id number] 2.16.840.1.213766.3.579.2 .90 1991 Unknown [id number] 2.16.840.1.696619.3.579.2 .1991 Unknown [id number] 2.16.840.1.351294.3.579.2 .1991 Unknown [id number] 2.16.840.1.861320.3.579.2 .1991 Unknown [id number] 2.16.840.1.360155.3.579.2 .1991 Unknown [id number] 2.16.840.1.391160.3.579.2 .1991 Unknown [id number] 2.16.840.1.536781.3.579.2 .1991 Unknown [id number] 2.16.840.1.323989.3.579.2 .1991 Unknown [id number] 2.16.840.1.924161.3.579.2 .1991 Unknown [id number] 2.16840.1.391957.3.579.2 .356 1991 Unknown [id number] 2.16.840.1.356655.3.579.2 .356 1991 Unknown [id number] 2.16.840.1.420863.3.579.2 .902 Private Health Insurance [id number] Unknown [id number] Unknown [facility] [place] [id number] Unknown [id number] 2.16840.1.434040.3.579.2 .462 Unknown [id number] 2.16.840.1.977599.3.579.2 .462 Unknown [id number] 2.16.840.1.255368.3.579.2 .462 Unknown [id number] 2.16.840.1.332858.3.579.2 .462 Unknown [id number] 2.16.840.1.467471.3.579.2 .462 Unknown [id number] 2.16840.1.118178.3.579.2 .462 Unknown [id number] 2.16.840.1.516868.3.579.2 .462 Social History Date Type Detail Facility Start: 09-11-2018 End: 10-01-2024 Tobacco smoking status NHIS Current every day smoker [facility] Start: 1991 Sex Assigned At Not on file O [facility] Start: 06-17-2019 End: 04-25-2023 Alcohol intake Current drinker of alcohol (finding) [facility] Start: 11-13-2022 End: 04-25-2023 Tobacco use Tobacco use [facility] Comment on above: 6 per day; Start: 04-29-2023 End: 12-01-2023 Tobacco smoking consumption unknown [facility] History of tobacco use Cigarette Smoker C [facility] Start: 11-13-2022 End: 08-06-2024 Tobacco use and exposure Smokeless tobacco non-user [facility] Start: 11-13-2022 History SDOH Alcohol Frequency 4 [facility] Start: 11-13-2022 History SDOH Alcohol Std Drinks 2 [facility] Start: 11-13-2022 History SDOH Social Connections Phone 5 [facility] Start: 11-13-2022 History SDOH Social Connections Get Together 3 [facility] Start: 11-13-2022 History SDOH Social Connections Uatsdin 1 [facility] Start: 11-13-2022 History SDOH Physica l Activity DPW 7 [facility] Start: 11-13-2022 History SDOH Physica l Activity MPS 6 [facility] Start: 07-08-2014 Alcohol Comment Occasionally [facility] Start: 11-13-2022 End: 04-25-2023 Social connection and isolation panel [facility] Do you belong to any clubs or organizations such as hoahaoism groups, unions, fraternal or athletic groups, or school groups? No [facility] Are you now , , , , never or living with a partner? [facility] How often to you hav e a drink containing alcohol? 2-3 time sa week [facility] How many standard drinks containing alcohol do you have on a typical day? 3 or 4 [facility] How often do you hav e 6 or more drinks on 1 occasion? Less than monthly [facility] Start: 08-11-2012 How hard is it for y ou to pay for the very basics like food, housing, medical care, and heating Not hard at all [facility] Do you feel stress - tense, restless, nervous, or anxious, or unable to sleep at night because your mind is troubled all the time - these days [OSQ] Very much [facility] (I/We) worried wheonel er (my/our) food would run out before (I/we) got money to buy more. Never true [facility] Start: 03-16-2023 [facility] Start: 1990 Sex Assigned At Female W [facility] Start: 05-09-2023 End: 02-25-2025 Alcohol intake Ex-drinker (finding) [facility] The thought of philip hooker myself has occurred to me Never [facility] Work Phone: Start: 05-09-2023 Education 16 [facility] Start: 2023 Gender identity Identifies as female gender (finding) [facility] Start: 2023 Sexual orientation Heterosexual (tessa quach) [facility] NEGATED: Highlighted rowStart: NINF History of tobacco use Passive smoker [facility] Medical Equipment Procedure Code Equipment Code Equipment Origin al Text Equipment Identifier Dates Start: 10-09-2023 Comment on above: Use as directed to c heck glucose levels up to seven times daily. 1 Each once daily. Goals Date Patient Goal Desired Activity /State Functional Status Date Assessment Result Facility 09-23-2014 Are you deaf, or do you have serious difficulty hearing No 09/23/2014 4:15 PM Brenda Calero Ma No [facility] 09-23-2014 Are you blind, or do you have serious difficulty seeing, even when wearing glasses No 09/23/2014 4:15 PM Brenda Calero Ma [facility] 09-23-2014 Do you have serious difficulty walking or climbing stairs No 09/23/2014 4:15 PM Brenda Calero Ma [facility] 09-23-2014 Do you have difficul ty dressing or bathing No 09/23/2014 4:15 PM Brenda Calero Ma [facility] 09-23-2014 Because of a physica l, mental, or emotional condition, do you have difficulty doing errands alone such as visiting a physician's office or shopping No 09/23/2014 4:15 PM Brenda Calero Ma [facility] Functional observable [facility] Mental Status Date Assessment Result Facility 11-30-2023 Cognitive function Level Of Cons ciousness Awake;Alert;Appropriate;Fol lows Commands [facility] Work Phone: 12-30-2021 Cognitive functi ons [id number] [facility] 09-23-2014 Because of a physica l, mental, or emotional condition, do you have serious difficulty concentrating, remembering, or making decisions No 09/23/2014 4:15 PM Brenda Calero Ma [facility] Clinical Notes 08-08-2021 to 06-25-2025 Telephone Encounter - Damaso Mistry LPN - 03/03/2025 11:18 AM EDTTelephone Encounter - Damaso Mistry LPN - 03/03/2025 11:18 AM EDTTelephone Encounter - Damaso Mistry LPN - 03/03/2025 11:17 AM EDT Note Date & Type Note Facility 06-25-2025 Note HNO ID: [id number] Author: CHRIS LAW MD Service: ? Author Type: Physician Type: Progress Notes Filed: 06/25/2025 14:06 Note Text: Dental Mechanic offered: Patient declines. Shruti is a 35 year old who presents for an annual gynecologic exam with complaints, pain at site and discuss control. Still get period: Yes Menstrual cycles q 25 days with 5 days of bleeding Bleeding amount bothersome: No Bleeding between periods: No Period symptoms: None Time with current partner: 12 years Number of lifetime partners: 10 control frequency: Sometimes HPV vaccine: Unsure; HPV:positive Last pap smear: 01/10/2024, ASCUS History of abnormal pap: Yes, history of abnormal PAP smears Bothersome pelvic pain: No Last mammogram: never Has increased activity since back surgery and losing weight, so feeling overall better Migraine headaches with CHC and DUB with nexplanon OB History Gravida2 Para2 Term2 Preterm0 AB0 Living2 SAB0 IAB0 Ectopic0 Multiple0 Live Births2 Internal Specialist History LMP: 06/14/2025, Having periods Age at Menarche: 12 Age at First : Age at Menopause: Internal Specialist History Comments: Sexual Activity: Yes; Male Contraception: Condom, Rhythm Menstrual Tracking History Flowsheet Row Office Visit from 06/25/2025 in OB/Gynecology Period Cycle (Days) 25 Period Duration (Days) 5 Menstrual Flow Moderate PAST MEDICAL HISTORY Diagnosis Date anxiety/depression ASCUS with positive high risk HPV cervical Atypical glandular cells of undetermined significance (J LUIS) on cervical Pap smear 01/24/2022 [facility] HPV+ Breast disorder Complication of anesthesia Dysmenorrhea Excessive or frequent menstruation Heavy periods Gestational diabetes (HCC) Gestational hypertension (HCC) Migraine depression Tension headache PAST SURGICAL HISTORY Procedure Laterality Date DELIVERY ONLY 11/30/2023 [facility] EXTRACTION ERUPTED TOOTH wisdom teeth PAST SURGICAL HISTORY OF Left ACL PAST SURGICAL HISTORY OF 10/17/2024 Discectomy VAGINOSCOPY FAMILY HISTORY Problem Relation Age of Onset Lipids Mother Hypertension Mother Thyroid Mother Hypertension Father Lipids Father No Known Problems Sister No Known Problems Sister No Known Problems Maternal Grandmother No Known Problems Maternal Grandfather Cancer Paternal Grandmother Lung Heart Paternal Grandfather MD at age 35 Alzheimer's Disease Other PGGGM Breast Cancer Other PGGGM No Known Problems Half-sister No Known Problems Son SOCIAL HISTORY Social History Tobacco Use Smoking status: Every Day Current packs/day: 0.25 Average packs/day: 0.3 packs/day for 15.0 years (3.8 ttl pk-yrs) Types: Cigarettes Passive exposure: Never Smokeless tobacco: Never Vaping Use Vaping status: Former Substance Use Topics Alcohol use: Not Currently Comment: Occasionally Drug use: No REVIEW OF SYSTEMS Abdomen: No abdominal pain, nausea, vomiting, diarrhea, or constipation. Bladder: No dysuria, gross hematuria, urinary frequency, urinary urgency, or incontinence. Breast: No breast lumps, nipple d/c, overlying skin changes, redness or skin retraction. Allergies and current medication updated:Yes SENSITIVE EXAM: The sensitive examination was discussed with the Patient or Patient's Authorized Gifted Teacher. As applicable, any other physician, advance practice provider, medical student, or other health professional student that will be observing or involved in the sensitive examination for educational or training purposes was discussed with the Patient or Authorized Gifted Teacher. The Patient or Authorized Gifted Teacher has agreed to proceed with the sensitive examination. (Sensitive examination includes inspection and/or palpation of the breasts, pelvis, prostate and anorectal regions). EXAM: BP 110/74 Ht 5' 5 (1.65m) Wt 154 lb 9.6 oz (70.1kg) LMP 06/14/2025 BMI 25.73 kg/(m2). GENERAL: pleasant, female in no apparent distress HEENT: Normocephalic and atraumatic BREAST: soft, non-tender, symmetric, no dominant mass, normal nipple-areolar complex, no lymphadenopathy, and no nipple discharge CHEST: Normal inspiratory effort ABDOMEN: soft, non-tender, and no masses PELVIC: external genitalia normal, normal Bartholin's glands, urethra, Indiahoma's glands, no vulvar lesions, no cervical lesions, good vaginal support, physiologic discharge present, normal appearing perineal body and perianal region BIMANUAL: uterus normal size, shape and consistency, no adnexal masses, and non-tender RECTOVAGINAL: deferred. NEURO: exam grossly non-focal EXTREMITIES: normal ASSESSMENT/PLAN: 1) Health maintenance: Pap done with HPV. Nutrition, exercise and routine health maintenance exams reviewed. 2) Contraception: condoms. Contraceptive options reviewed and information provided. - After discussion of r/b/a patient desires Mi (more content not included)... [facility] 06-17-2025 Note HNO ID: [id number] Author: MARGARITA MOSLEY MD Service: ? Author Type: Physician Type: Progress Notes Filed: 06/17/2025 14:39 Note Text: Subjective Chief Complaint: Shruti Ruvalcaba is a 35-year-old female with a history of IBS, presenting with persistent abdominal pain and irregular bowel movements. History of Present Illness: Shruti reports persistent abdominal pain that is described as moving around and feeling like a bruise inside. The pain is constant but has calmed down a lot. It is primarily located in the lower abdomen and is more noticeable after dinner, about an hour after sitting down on the couch. The pain is not related to her menstrual cycle and is not affected by specific foods. She has tried to watch her dairy intake but has not noticed a difference. The pain is not bothersome at night when she is laying flat. Shruti also reports irregular bowel movements, with alternating constipation and diarrhea. She has tried an elimination diet but has not been able to identify a trigger for her symptoms. She was diagnosed with IBS at the age of 22 or 23 after a colonoscopy, but her symptoms have worsened since then. Shruti has a history of back pain, which has improved, and she is more active than usual. She has lost weight, which she attributes to not eating and stopping meloxicam. She is currently taking sertraline and Flexeril as needed, but has stopped taking Neurontin, Mobic, and antiemetics. She has also quit drinking alcohol. Review of Systems GENERAL: Positive for recent weight loss. Denies malaise or fever. HEENT: Negative for frequent or significant headaches; denies visual or hearing changes, epistaxis, or other nasal problems. NECK: Negative for lumps, goiter, pain, or significant swelling. RESPIRATORY: Negative for cough, dyspnea, or shortness of breath. CARDIOVASCULAR: Negative for chest pain, leg swelling, CHF, or palpitations. GI: Positive for intermittent lower abdominal pain and episodes of both constipation and diarrhea. Denies nausea, vomiting, heartburn, blood in stool, or black stool. GENITOURINARY: Denies dysuria, frequency, or incontinence. Reports recent irregular menses. MUSCULOSKELETAL: Negative for joint pain, swelling, or myalgia. Denies current back pain. SKIN: Negative for lesions, rash, or itching. PSYCH: Denies anxiety or depression. HEMATOLOGY/LYMPHOLOGY: Denies bleeding concerns. NEURO: Denies headaches, syncope, paralysis, seizures, or tremors. ENDOCRINE: Denies polydipsia, increased thirst, or other endocrine symptoms. PAST SURGICAL HISTORY Procedure Laterality Date DELIVERY ONLY 11/30/2023 [facility] EXTRACTION ERUPTED TOOTH wisdom teeth PAST SURGICAL HISTORY OF Left ACL VAGINOSCOPY PAST MEDICAL HISTORY Diagnosis Date anxiety/depression ASCUS with positive high risk HPV cervical Atypical glandular cells of undetermined significance (J LUIS) on cervical Pap smear 01/24/2022 [facility] HPV+ Breast disorder Complication of anesthesia Dysmenorrhea Excessive or frequent menstruation Heavy periods Gestational diabetes (HCC) Gestational hypertension (HCC) Migraine depression Tension headache FAMILY HISTORY Problem Relation Age of Onset Lipids Mother Hypertension Mother Thyroid Mother Hypertension Father Lipids Father No Known Problems Sister No Known Problems Sister No Known Problems Maternal Grandmother No Known Problems Maternal Grandfather Cancer Paternal Grandmother Lung Heart Paternal Grandfather MD at age 35 Alzheimer's Disease Other PGGGM Breast Cancer Other PGGGM No Known Problems Half-sister No Known Problems Son SOCIAL HISTORY[1] ALLERGIES Allergen Reactions Pollen Unknown Headaches MEDICATIONS: cyclobenzaprine (FLEXERIL) 10 mg tablet Take 1 tablet by mouth every 8 hours as needed for muscle spasm. sertraline (ZOLOFT) 50 mg tablet Take 1 tablet by mouth once daily. After taking 1/2 tab every day for the first week, Allergies, past surgical history, family history and past medical history were reviewed per this encounter. Medications were reviewed and verified. 06/15/2025 06/17/2025 INTAKE PAIN ASSESSMENT Are you having pain associated with your visit today? No Yes, Provider notified Pain Level 3 3 Pain Location Abdomen Description Aching;Burning;Dull;Tenderness Duration Units Months Frequency Intermittent If pain assessment is 0, no action needed. If pain assessment is positive, please see assessment and plain. Objective Imaging: - Abdominal ultrasound: Normal gallbladder; liver normal. BP 122/78 (BP Site: Left Arm, BP Position: Sitting, BP Cuff Size: Regular Adult) Pulse 88 Temp 36.2 ?C (97.1 ?F) (Temporal) Resp 18 Ht 163.8 cm (5' 4.5) Wt 68.8 kg (151 lb 9.6 oz) LMP 06/13/2025 (Exact Date) SpO2 98% No BMI 25.62 kg/m? Physical Exam GENERAL: NAD, alert and oriented. SKIN: (more content not included)... [facility] 06-17-2025 Note HNO ID: [id number] Author: DAMASO MISTRY LPN Service: ? Author Type: Licensed Nurse Type: Progress Notes Filed: 06/17/2025 14:39 Note Text: Patient is in office for follow up from recent urgent care visit. Patient was evaluated and treated at Urgent Care in [place] on 06-15-2025 {ASSESSMENT/PLAN: 1. Generalized abdominal pain - ICD9: 789.07, ICD10: R10.84 (primary diagnosis) Advised pt to follow up with GI for further workup or ED if any sudden worsening - CONSULT TO GASTROENTEROLOGY Till seen at visit avoid ETOH and also NSAids 2. Hepatic steatosis - ICD9: 571.8, ICD10: K76.0 patient continues to have abdominal pain. No refills needed Damaso Mistry LPN June 17, 2025 1:48 PM [facility] 06-15-2025 Note HNO ID: [id number] Author: JULEE BANKS MD Service: ? Author Type: Physician Type: Progress Notes Filed: 06/15/2025 12:08 Note Text: [facility] Harsha Ruvalcaba is a 35 year old female. Patient presents with: Abdominal Pain: X 2 months Pt is here with ongoing abdominal pain nx 2 months seen by her pcp labs and US done showing only hepatic steatosis no new issues but genralized belly pain no fever no chills no N/V past surgical hx of C section pt has stopped all meds and ETOH and has since improved but not gone Abdominal Pain Pertinent negatives include fever, diarrhea, nausea, vomiting, dysuria and frequency. Review of Systems Constitutional: Negative for chills, fatigue and fever. Gastrointestinal: Positive for abdominal pain. Negative for diarrhea, nausea, rectal pain and vomiting. Genitourinary: Negative for dysuria, flank pain, frequency, pelvic pain, urgency and vaginal bleeding. Objective BP 132/82 Pulse 80 Temp 36.4 ?C (97.6 ?F) (Tympanic) Resp 18 Wt 68.2 kg (150 lb 5.7 oz) LMP 02/25/2025 (Exact Date) SpO2 98% BMI 25.41 kg/m? Physical Exam Vitals and nursing note reviewed. Constitutional: Appearance: Normal appearance. She is not ill-appearing. Abdominal: General: Bowel sounds are normal. Palpations: Abdomen is soft. Tenderness: There is no abdominal tenderness. There is no right CVA tenderness, left CVA tenderness, guarding or rebound. Hernia: No hernia is present. Neurological: Mental Status: She is alert and oriented to person, place, and time. Psychiatric: Mood and Affect: Mood normal. Behavior: Behavior normal. {ASSESSMENT/PLAN: 1. Generalized abdominal pain - ICD9: 789.07, ICD10: R10.84 (primary diagnosis) Advised pt to follow up with GI for further workup or ED if any sudden worsening - CONSULT TO GASTROENTEROLOGY Till seen at visit avoid ETOH and also NSAids 2. Hepatic steatosis - ICD9: 571.8, ICD10: K76.0 Julee Banks MD History and Record Review External record(s) reviewed: prior outpatient record. Differential Diagnoses - abdominal pain unknown cause is more likely for the following reason(s): suggested by HANDP Disposition The patient was discharged. Procedures [facility] 03-03-2025 Telephone encounter Note Patient notified of result information on My Chart. Notification will be sent to this nurse if message has not been read within 2 days. Patient will be contacted by another form of communication if notification of not reading My Chart message is received. Damaso Mistry LPN March 03, 2025 11:18 AM [facility] 03-03-2025 Miscellaneous Notes Patient notified of result information on My Chart. Notification will be sent to this nurse if message has not been read within 2 days. Patient will be contacted by another form of communication if notification of not reading My Chart message is received. Damaso Mistry LPN March 03, 2025 11:18 AM ----- Message from Margarita Mosley MD sent at 03/03/2025 11:08 AM EDT ----- Negative for gallstones documented in this encounter [facility] 03-03-2025 Telephone encounter Note ----- Message from Margarita Mosley MD sent at 03/03/2025 11:08 AM EDT ----- Negative for gallstones [facility] 02-25-2025 Note HNO ID: [id number] Author: MARGARITA MOSLEY MD Service: ? Author Type: Physician Type: Progress Notes Filed: 02/25/2025 17:48 Note Text: Subjective Shruti Ruvalcaba is a 34-year-old female presenting for evaluation of RUQ abdominal pain, nausea, and emesis. RUQ Abdominal Pain: - Intermittent RUQ abdominal pain, worsened significantly on Sunday after consuming fried cheese and south su[place]ese fries. - Describes pain as extreme stabbing and burrowing through me. - Pain is constant but exacerbated by eating. - Denies family history of cholelithiasis. Nausea and Emesis: - Persistent nausea and emesis since Sunday. - Emesis occurred again this morning. - No appetite; consuming minimal food (e.g., a can of soup per day, small amounts of cottage cheese). - Took a test due to nausea and emesis, which was negative. Back Pain: - Reports significant improvement in back pain. - Recent MRI showed a condition almost to the bone, leading to emergency surgery. - Describes recovery as slow but anticipates feeling better by next summer. Review of Systems GENERAL: No weight loss, malaise, or fevers. HEENT: Negative for frequent or significant headaches, no changes in vision or hearing, no nosebleeds or other nasal problems. NECK: Negative for lumps, goiter, pain, and significant neck swelling. RESPIRATORY: Negative for cough, dyspnea, or shortness of breath. CARDIOVASCULAR: Negative for chest pain, leg swelling, CHF, or palpitations. GI: Positive for nausea, vomiting, poor appetite, and right-sided abdominal pain that worsens with fatty meals. Negative for diarrhea, heartburn, blood in stool, or black stool. GENITOURINARY: No history of dysuria, frequency, or incontinence. MUSCULOSKELETAL: Negative for joint pain or swelling, or muscle pain. No current back pain. SKIN: Negative for lesions, rash, and itching. PSYCH: Negative for anxiety or depression. HEMATOLOGY/LYMPHOLOGY: No bleeding concerns. NEURO: No history of headaches, syncope, paralysis, seizures, or tremors. ENDOCRINE: No history of polydipsia, increased thirst, or other endocrine symptoms. PAST SURGICAL HISTORY Procedure Laterality Date DELIVERY ONLY 11/30/2023 [facility] EXTRACTION ERUPTED TOOTH wisdom teeth PAST SURGICAL HISTORY OF Left ACL VAGINOSCOPY PAST MEDICAL HISTORY Diagnosis Date anxiety/depression ASCUS with positive high risk HPV cervical Atypical glandular cells of undetermined significance (J LUIS) on cervical Pap smear 01/24/2022 [facility] HPV+ Breast disorder Complication of anesthesia Dysmenorrhea Excessive or frequent menstruation Heavy periods Gestational diabetes (HCC) Gestational hypertension (HCC) Migraine depression Tension headache FAMILY HISTORY Problem Relation Age of Onset Lipids Mother Hypertension Mother Thyroid Mother Hypertension Father Lipids Father No Known Problems Sister No Known Problems Sister No Known Problems Maternal Grandmother No Known Problems Maternal Grandfather Cancer Paternal Grandmother Lung Heart Paternal Grandfather MD at age 35 Alzheimer's Disease Other PGGGM Breast Cancer Other PGGGM No Known Problems Half-sister No Known Problems Son Social History Tobacco Use Smoking status: Every Day Current packs/day: 0.25 Average packs/day: 0.3 packs/day for 15.0 years (3.8 ttl pk-yrs) Types: Cigarettes Passive exposure: Never Smokeless tobacco: Never Vaping Use Vaping status: Never Used Substance Use Topics Alcohol use: Not Currently Comment: Occasionally Drug use: No ALLERGIES Allergen Reactions Pollen Unknown Headaches MEDICATIONS: traMADol (ULTRAM) 50 mg tablet TAKE 1 TABLET BY MOUTH EVERY 4 HOURS FOR PAIN FOR 7 DAYS gabapentin (NEURONTIN) 300 mg capsule TAKE 1 CAPSULE BY MOUTH THREE TIMES DAILY DIRECTED meloxicam (MOBIC) 15 mg tablet Take 1 tablet by mouth every afternoon. cyclobenzaprine (FLEXERIL) 10 mg tablet Take 1 tablet by mouth every 8 hours as needed for muscle spasm. sertraline (ZOLOFT) 50 mg tablet Take 1 tablet by mouth once daily. After taking 1/2 tab every day for the first week, ALPRAZolam (XANAX) 0.25 mg tablet Take 1 tablet by mouth every 6 hours as needed for anxiety for up to 90 days. ondansetron orally disintegrating (ZOFRAN ODT) 4 mg disintegrating tablet Take 1 tablet by mouth every 8 hours as needed for nausea/vomiting. Allergies, past surgical history, family history and past medical history were reviewed per this encounter. Medications were reviewed and verified. 10/03/2024 02/25/2025 INTAKE PAIN ASSESSMENT Are you having pain associated with your visit today? Yes, Provider notified Yes, Provider notified Pain Scales Verbal (Numeric Rating or Visual Analog Scale) Pain Level 4 Pain Location Back-Lower Abdomen-Right Upper Quadrant Description Aching;Burning;Cramping;Cutting; Numbness;Radiating;Sharp;Shootin g;Sore;Sp (more content not included)... [facility] 02-25-2025 History of Presen t illness Narrative Subjective Shruti Ruvalcaba is a 34-year-old female presenting for evaluation of RUQ abdominal pain, nausea, and emesis. RUQ Abdominal Pain: - Intermittent RUQ abdominal pain, worsened significantly on Sunday after consuming fried cheese and south su[place]ese fries. - Describes pain as extreme stabbing and burrowing through me. - Pain is constant but exacerbated by eating. - Denies family history of cholelithiasis. Nausea and Emesis: - Persistent nausea and emesis since Sunday. - Emesis occurred again this morning. - No appetite; consuming minimal food (e.g., a can of soup per day, small amounts of cottage cheese). - Took a test due to nausea and emesis, which was negative. Back Pain: - Reports significant improvement in back pain. - Recent MRI showed a condition almost to the bone, leading to emergency surgery. - Describes recovery as slow but anticipates feeling better by next summer. Review of Systems GENERAL: No weight loss, malaise, or fevers. HEENT: Negative for frequent or significant headaches, no changes in vision or hearing, no nosebleeds or other nasal problems. NECK: Negative for lumps, goiter, pain, and significant neck swelling. RESPIRATORY: Negative for cough, dyspnea, or shortness of breath. CARDIOVASCULAR: Negative for chest pain, leg swelling, CHF, or palpitations. GI: Positive for nausea, vomiting, poor appetite, and right-sided abdominal pain that worsens with fatty meals. Negative for diarrhea, heartburn, blood in stool, or black stool. GENITOURINARY: No history of dysuria, frequency, or incontinence. MUSCULOSKELETAL: Negative for joint pain or swelling, or muscle pain. No current back pain. SKIN: Negative for lesions, rash, and itching. PSYCH: Negative for anxiety or depression. HEMATOLOGY/LYMPHOLOGY: No bleeding concerns. NEURO: No history of headaches, syncope, paralysis, seizures, or tremors. ENDOCRINE: No history of polydipsia, increased thirst, or other endocrine symptoms. PAST SURGICAL HISTORY Procedure Laterality Date DELIVERY ONLY 11/30/2023 [facility] EXTRACTION ERUPTED TOOTH wisdom teeth PAST SURGICAL HISTORY OF Left ACL VAGINOSCOPY PAST MEDICAL HISTORY Diagnosis Date anxiety/depression ASCUS with positive high risk HPV cervical Atypical glandular cells of undetermined significance (J LUIS) on cervical Pap smear 01/24/2022 [place] HPV+ Breast disorder Complication of anesthesia Dysmenorrhea Excessive or frequent menstruation Heavy periods Gestational diabetes (HCC) Gestational hypertension (HCC) Migraine depression Tension headache FAMILY HISTORY Problem Relation Age of Onset Lipids Mother Hypertension Mother Thyroid Mother Hypertension Father Lipids Father No Known Problems Sister No Known Problems Sister No Known Problems Maternal Grandmother No Known Problems Maternal Grandfather Cancer Paternal Grandmother Lung Heart Paternal Grandfather MD at age 35 Alzheimer's Disease Other PGGGM Breast Cancer Other PGGGM No Known Problems Half-sister No Known Problems Son Social History Tobacco Use Smoking status: Every Day Current packs/day: 0.25 Average packs/day: 0.3 packs/day for 15.0 years (3.8 ttl pk-yrs) Types: Cigarettes Passive exposure: Never Smokeless tobacco: Never Vaping Use Vaping status: Never Used Substance Use Topics Alcohol use: Not Currently Comment: Occasionally Drug use: No ALLERGIES Allergen Reactions Pollen Unknown Headaches MEDICATIONS: traMADol (ULTRAM) 50 mg tablet TAKE 1 TABLET BY MOUTH EVERY 4 HOURS FOR PAIN FOR 7 DAYS gabapentin (NEURONTIN) 300 mg capsule TAKE 1 CAPSULE BY MOUTH THREE TIMES DAILY DIRECTED meloxicam (MOBIC) 15 mg tablet Take 1 tablet by mouth every afternoon. cyclobenzaprine (FLEXERIL) 10 mg tablet Take 1 tablet by mouth every 8 hours as needed for muscle spasm. sertraline (ZOLOFT) 50 mg tablet Take 1 tablet by mouth once daily. After taking 1/2 tab every day for the first week, ALPRAZolam (XANAX) 0.25 mg tablet Take 1 tablet by mouth every 6 hours as needed for anxiety for up to 90 days. ondansetron orally disintegrating (ZOFRAN ODT) 4 mg disintegrating tablet Take 1 tablet by mouth every 8 hours as needed for nausea/vomiting. Allergies, past surgical history, family history and past medical history were reviewed per this encounter. Medications were reviewed and verified. 10/03/2024 02/25/2025 INTAKE PAIN ASSESSMENT Are you having pain associated with your visit today? Yes, Provider notified Yes, Provider notified Pain Scales Verbal (Numeric Rating or Visual Analog Scale) Pain Level 4 Pain Location Back-Lower Abdomen-Right Upper Quadrant Description Aching;Burning;Cramping;Cutting; Numbness;Radiating;Sharp;Shootin g;Sore;Spasm;Stabbing;Stabbing/N ot Incision;Stiffness;Tenderness;Ti ghtness;Tingling Aching Duration Amount of Time 24 1 Duration Units Hours Weeks Frequency Continuous Continuous Intervention/Comfort measure Medication;Relaxation;Cold;Educa tion;Exercise;Heat;Music;Pillow support;Positioning Comments Siatica If pain assessment is 0, no action needed. If pain assessment is positive, please see assessment and plain. Objective Labs: Tests: Imaging: - MRI of the spine: Lesion compressing the spine near bony involvement. BP 122/72 (BP Site: Left Arm, BP Position: Sitting, BP Cuff Size: Regular Adult) Pulse 100 Temp 36.4 C (97.6 F) (Temporal) Resp 18 Ht 163.8 cm (5' 4.5) Wt 73 kg (161 lb) LMP 02/25/2025 (Exact Date) SpO2 98% BMI 27.21 kg/m Physical Exam GENERAL: NAD, alert and oriented SKIN: unremarkable, no rash or skin lesions. HEAD: normocephalic EYES: PERRLA, EOMI, conjunctiva clear EARS: external ears normal, canals clear, TM's normal. NOSE/SINUSES: Nares normal. Septum midline. OROPHARYNX: lips, mucosa, and tongue normal, good dentition. No oral lesions noted. NECK: Supple, no lymphadenopathy, normal thyroid, no carotid bruits. LUNGS: Clear to auscultation bilaterally, no wheezes/rhonchi/rales. HEART: Regular rate and rhythm, no murmurs. No ectopy. EXTREMITIES: Normal, No deformities, No skin discoloration, No edema. ABDOMEN: Mild tenderness in the right upper quadrant. NEURO: Awake, alert and oriented x3, cranial nerves II-XII grossly intact, normal gait, no involuntary motions Procedures Assessment and Plan 1. RUQ pain (R10.11) - Abdominal exam reveals tenderness in the right upper quadrant. - Ordered liver function tests to assess for hepatic abnormalities. - Ordered abdominal ultrasound to evaluate the gallbladder and right upper quadrant structures. - Advised dietary modifications to avoid fatty meals and consume easily digestible carbohydrates and proteins. - Initiated Prilosec daily to reduce gastric acidity and potential irritation. 2. Nausea and vomiting, unspecified vomiting type (R11.2) - Prescribed antiemetic medication for short-term use to manage symptoms. 3. Anxiety (F41.9) Margarita Mosley MD 02/25/2025 Recording using [employer] software for draft documentation of the visit was discussed with the patient/authorized shipping services sales representative; all questions welcomed and answered. Patient/authorized shipping services sales representative agreed to proceed Patient is in office with complaint of abdominal pain. Patient began experiencing nausea and vomiting about a week ago. Patient states that she thought she was just getting sick. Patient then began to have RUQ pain in addition to the nausea and vomiting starting 4 days ago. Patient continues to not be able to eat without pain or emesis. Patient did eat cottage cheese this morning and was able to keep it down. Damaso Mistry LPN February 25, 2025 4:22 PM documented in this encounter [facility] 02-25-2025 Note HNO ID: [id number] Author: DAMASO MISTRY LPN Service: ? Author Type: LICENSED NURSE Type: Progress Notes Filed: 02/25/2025 17:48 Note Text: Patient is in office with complaint of abdominal pain. Patient began experiencing nausea and vomiting about a week ago. Patient states that she thought she was just getting sick. Patient then began to have RUQ pain in addition to the nausea and vomiting starting 4 days ago. Patient continues to not be able to eat without pain or emesis. Patient did eat cottage cheese this morning and was able to keep it down. Damaso Mistry LPN February 25, 2025 4:22 PM [facility] 02-03-2025 Telephone encounter Note Last Office Visit: 10/06/24 Next visit: 02/09/25 Requested Prescriptions Pending Prescriptions Disp Refills ALPRAZolam (XANAX) 0.25 mg tablet [Pharmacy Med Name: ALPRAZOLAM 0.25MG TAB] 60 tablet 0 Sig: Take 1 tablet by mouth every 6 hours as needed for anxiety for up to 90 days. Laith Carnes LPN February 03, 2025 9:07 AM [facility] 02-03-2025 Miscellaneous Notes Last Office Visit: 10/06/24 Next visit: 02/09/25 Requested Prescriptions Pending Prescriptions Disp Refills ALPRAZolam (XANAX) 0.25 mg tablet [Pharmacy Med Name: ALPRAZOLAM 0.25MG TAB] 60 tablet 0 Sig: Take 1 tablet by mouth every 6 hours as needed for anxiety for up to 90 days. Laith Carnes LPN February 03, 2025 9:07 AM documented in this encounter [facility] 01-14-2025 Discharge summary Note Date/Time January 14, 2025 3:55pm [facility] [address] [place] [address]. [address] [place] [address] / REHABILITATION SERVICES DISCHARGE SUMMARY MR#: [id number] Acct: [id number] Name: SHRUTI RUVALCABA Rep #: [id number] : 1990 34 From: Cert. KARTIK UriasT, OCS Referring Dr.: Dr. Enrique Dyer MD Status: REG R Insurance: [facility] Patient Information Patient Information: SHRUTI RUVALCABA was seen in my office for initial evaluation on 09/18/24. The following Plan of Care was established for this patient: POC Established Initial Frequency: 2x /Week Initial Duration: 4 Weeks Anticipated Interventions Patient/Client Instruction: Educate patient on: Condition and Plan of Care For the Purpose of:: To decrease pain, To increase ROM, To increase oxygenation perfusion, To improve ability to perform ADL's, To increase tolerance to activity/condition/position, To improve ability of physical actions for home/community/work/leisure, To improve health of tissue, To decrease soft tissue restriction, To increase flexibility/ROM, To reduce risk of recurrence and Toprevent re-injury Therapeutic Exercise to Include: Strength training, Flexibilty training, DynamicLumbar Stabilization and Amado Exercises For the Purpose of:: To decrease pain, To increase ROM, To improve muscle performance and motor function, To improve ability to perform ADL's, To increasetolerance to activity/condition/position, To improve ability of physical actionsfor home/community/work/leisure, To improve health of tissue, To decrease soft tissue restriction, To increase flexibility/ROM, To reduce risk of recurrence, To prevent re-injury and To improve tolerance to ADL's Manual Therapy Techniques to Include: Mobilization Comment: LUMBAR For the Purpose of:: To decrease pain, To increase ROM, To improve nutrient delivery to tissue, To increase oxygenation perfusion, To improve gait and locomotor functions and To improve health of tissue TENS: Yes IF ES: Yes Cryotherapy (ice pack, ice massage): Yes Thermo therapy (hot pack): Yes Ultrasound (thermal/non thermal): Yes For the Purpose of:: To decrease pain, To increase ROM, To improve nutrient delivery to tissue, To increase oxygenation perfusion, To improve health of tissue and To decrease soft tissue restriction Last Seen Last Seen: This patient was last seen in our office . Pertinent comments regarding their Physical therapy will appear below: Patient seen for PT for lumbar radiculopathy thus had MRI showed severe stenosisand disc extrusion thus d/c At this point I will be discontinuing this patient from physical therapy. I would be happy to see this patient again in the future if found appropriate by the physician. Thank you! Anton Loza PT, Cert ASH, OCS Balance/Gait/Functional tests Balance/Special Test Scores Oswestry Low Back Score: 35 <Electronically signed by Kristian Matthew PT. ASH, COBY> 01/14/25 [id number] CC: Dr. Enrique Dyer MD; Dr. Margarita Mosley MD ~ HERLINDA Signed [facility] Work Phone: [phone]) 997-856905-07-2025 Discharge summary [facility] Physical [facility] [address] [place] [address] / REHABILITATION SERVICES DISCHARGE SUMMARY MR#: [id number] Acct: [id number] Name: SHURTI RUVALCABA Rep #: [id number] : 1990 34 From: Cert. KARTIK UriasT, OCS Referring Dr.: Dr. Enrique Dyer MD Status: REG R Insurance: [facility] Patient Information Patient Information: SHRUTI RUVALCABA was seen in my office for initial evaluation on 09/18/24. The following Plan of Care was established for this patient: POC Established Initial Frequency: 2x /Week Initial Duration: 4 Weeks Anticipated Interventions Patient/Client Instruction: Educate patient on: Condition and Plan of Care For the Purpose of:: To decrease pain, To increase ROM, To increase oxygenation perfusion, To improve ability to perform ADL's, To increase tolerance to activity/condition/position, To improve ability of physical actions for home/community/work/leisure, To improve health of tissue, To decrease softtissue restriction, To increase flexibility/ROM, To reduce risk of recurrence and Toprevent re-injury Therapeutic Exercise to Include: Strength training, Flexibilty training, DynamicLumbar Stabilization and Amado Exercises For the Purpose of:: To decrease pain, To increase ROM, To improve muscle performance and motor function, To improve ability to perform ADL's, To increasetolerance to activity/condition/position, To improve ability of physical actionsfor home/community/work/leisure, To improve health of tissue, To decrease soft tissue restriction, To increase flexibility/ROM, To reduce risk of recurrence, To prevent re-injury and To improve tolerance to ADL's Manual Therapy Techniques to Include: Mobilization Comment: LUMBAR For the Purpose of:: To decrease pain, To increase ROM, To improve nutrient delivery to tissue, To increase oxygenation perfusion, To improve gait and locomotor functions and To improve health of tissue TENS: Yes IF ES: Yes Cryotherapy (ice pack, ice massage): Yes Thermo therapy (hot pack): Yes Ultrasound (thermal/non thermal): Yes For the Purpose of:: To decrease pain, To increase ROM, To improve nutrient delivery to tissue, To increase oxygenation perfusion, To improve health of tissue and To decrease soft tissue restriction Last Seen Last Seen: This patient was last seen in our office . Pertinent comments regarding their Physical therapy willappear below: Patient seen for PT for lumbar radiculopathy thus had MRI showed severe stenosisand disc extrusion thus d/c At this point I will be discontinuing this patient from physical therapy. I would be happy to see this patient again in the future if found appropriate by the physician. Thank you! Anton Loza, PT, Cert MDT, OCS Balance/Gait/Functional tests Balance/Special Test Scores Oswestry Low Back Score: 35 01/14/25 1555 CC: Dr. Enrique Dyer MD; Dr. Margarita Mosley MD ~ JLA Signed [facility]01-27-2025 NoteHNO ID: [id number] Author: MARGARITA MOSLEY MD Service: ? Author Type: Physician Type: Progress Notes Filed: 10/06/2024 11:44 Note Text: Harsha Ruvalcaba is a 34 year old female. She presents today for follow-up for the emergency room for acute on chronic low back pain. Her symptoms have persisted. She had recent MRI which shows severe spinal stenosis due to disc disease. Pain is radiating to her right leg. She has an extreme discomfort. She has follow-up with [facility] orthopedics this week. Review of Systems Constitutional: Negative. HENT: Negative. Eyes: Negative. Respiratory: Negative. Cardiovascular: Negative. Gastrointestinal: Negative. Endocrine: Negative. Genitourinary: Negative. Musculoskeletal: Negative. Skin: Negative. Allergic/Immunologic: Negative. Neurological: Negative. Hematological: Negative. Psychiatric/Behavioral: Negative. PAST SURGICAL HISTORY Procedure Laterality Date DELIVERY ONLY 11/30/2023 [facility] EXTRACTION ERUPTED TOOTH wisdom teeth PAST SURGICAL HISTORY OF Left ACL VAGINOSCOPY PAST MEDICAL HISTORY Diagnosis Date anxiety/depression ASCUS with positive high risk HPV cervical Atypical glandular cells of undetermined significance (J LUIS) on cervical Pap smear 01/24/2022 [place] HPV+ Breast disorder Complication of anesthesia Dysmenorrhea Excessive or frequent menstruation Heavy periods Gestational diabetes Gestational hypertension Migraine depression Tension headache FAMILY HISTORY Problem Relation Age of Onset Lipids Mother Hypertension Mother Thyroid Mother Hypertension Father Lipids Father No Known Problems Sister No Known Problems Sister No Known Problems Maternal Grandmother No Known Problems Maternal Grandfather Cancer Paternal Grandmother Lung Heart Paternal Grandfather MD at age 35 Alzheimer's Disease Other PGGGM Breast Cancer Other PGGGM No Known Problems Half-sister No Known Problems Son Social History Tobacco Use Smoking status: Every Day Current packs/day: 0.25 Average packs/day: 0.3 packs/day for 15.0 years (3.8 ttl pk-yrs) Types: Cigarettes Passive exposure: Never Smokeless tobacco: Never Vaping Use Vaping status: Never Used Substance Use Topics Alcohol use: Not Currently Comment: Occasionally Drug use: No ALLERGIES Allergen Reactions Pollen Unknown Headaches MEDICATIONS: gabapentin (NEURONTIN) 300 mg capsule TAKE 1 CAPSULE BY MOUTH THREE TIMES DAILY DIRECTED meloxicam (MOBIC) 15 mg tablet Take 1 tablet by mouth every afternoon. traMADol (ULTRAM) 50 mg tablet Take 1 tablet by mouth every 6 hours as needed for pain for up to 8 days. cyclobenzaprine (FLEXERIL) 10 mg tablet Take 1 tablet by mouth every 8 hours as needed for muscle spasm. ALPRAZolam (XANAX) 0.25 mg tablet Take 1 tablet by mouth every 6 hours as needed for anxiety for up to 90 days. sertraline (ZOLOFT) 50 mg tablet Take 1 tablet by mouth once daily. After taking 1/2 tab every day for the first week, Allergies, past surgical history, family history and past medical history were reviewed per this encounter. Medications were reviewed and verified. 08/04/2024 10/03/2024 INTAKE PAIN ASSESSMENT Are you having pain associated with your visit today? Yes, Provider notified Yes, Provider notified Pain Level 6 Pain Location Back-Lower Back-Lower Description Pressure;Radiating;Sharp;Shooting;Sore;Spasm;Stabbing;Tenderness;Tightness;Tingl ing Aching;Burning;Cramping;Cutting;Numbness;Radiating;Sharp;Shooting;Sore;Spasm;Sta bbing;Stabbing/Not Incision;Stiffness;Tenderness;Tightness;Tingling Duration Amount of Time 24 Duration Units Months Hours Frequency Continuous Continuous Intervention/Comfort measure Medication;Reposition;Relaxation;Cold;Education;Exercise;Heat;Positioning Medication;Relaxation;Cold;Education;Exercise;Heat;Music;Pillow support;Positioning Comments Siatica Siatica If pain assessment is 0, no action needed. If pain assessment is positive, please see assessment and plain. Objective BP 136/84 (BP Site: Right Arm, BP Position: Standing, BP Cuff Size: Regular Adult) Pulse 94 Temp 36.3 ?C (97.3 ?F) (Temporal) Resp 18 Ht 163.8 cm (5' 4.5) Wt 71.1 kg (156 lb 12.8 oz) LMP 10/04/2024 (Exact Date) SpO2 96% BMI 26.50 kg/m? Physical Exam Vitals reviewed. Constitutional: Appearance: Normal appearance. HENT: Head: Normocephalic and atraumatic. Nose: Nose normal. Eyes: Extraocular Movements: Extraocular movements intact. Pupils: Pupils are equal, round, and reactive to light. Cardiovascular: Rate and Rhythm: Normal rate and regular rhythm. Pulmonary: Effort: Pulmonary effort is normal. Breath sounds: Normal breath sounds. Abdominal: General: Bowel sounds are normal. Palpations: Abdomen is soft. Musculoskeletal: General: Tenderness present. Normal range of motion. Cer (more content not included)...[facility]01-27-2025 History of Present illness Narrative* Margarita Mosley MD - 10/06/2024 11:40 AM EST Subjective Shruti Ruvalcaba is a 34 year old female. She presents today for follow-up for the emergency room for acute on chronic low back pain. Her symptoms have persisted. She had recent MRI which shows severe spinal stenosis due to disc disease. Pain is radiating to her right leg. She has an extreme discomfort. She has follow-up with [facility] orthopedics this week. Review of Systems Constitutional: Negative. HENT: Negative. Eyes: Negative. Respiratory: Negative. Cardiovascular: Negative. Gastrointestinal: Negative. Endocrine: Negative. Genitourinary: Negative. Musculoskeletal: Negative. Skin: Negative. Allergic/Immunologic: Negative. Neurological: Negative. Hematological: Negative. Psychiatric/Behavioral: Negative. PAST SURGICAL HISTORY Procedure Laterality Date DELIVERY ONLY 11/30/2023 LT[facility] EXTRACTION ERUPTED TOOTH wisdom teeth PAST SURGICAL HISTORY OF Left ACL VAGINOSCOPY PAST MEDICAL HISTORY Diagnosis Date anxiety/depression ASCUS with positive high risk HPV cervical Atypical glandular cells of undetermined significance (J LUIS) on cervical Pap smear 01/24/2022 [place] HPV+ Breast disorder Complication of anesthesia Dysmenorrhea Excessive or frequent menstruation Heavy periods Gestational diabetes Gestational hypertension Migraine depression Tension headache FAMILY HISTORY Problem Relation Age of Onset Lipids Mother Hypertension Mother Thyroid Mother Hypertension Father Lipids Father No Known Problems Sister No Known Problems Sister No Known Problems Maternal Grandmother No Known Problems Maternal Grandfather Cancer Paternal Grandmother Lung Heart Paternal Grandfather MD at age 35 Alzheimer's Disease Other PGGGM Breast Cancer Other PGGGM No Known Problems Half-sister No Known Problems Son Social History Tobacco Use Smoking status: Every Day Current packs/day: 0.25 Average packs/day: 0.3 packs/day for 15.0 years (3.8 ttl pk-yrs) Types: Cigarettes Passive exposure: Never Smokeless tobacco: Never Vaping Use Vaping status: Never Used Substance Use Topics Alcohol use: Not Currently Comment: Occasionally Drug use: No ALLERGIES Allergen Reactions Pollen Unknown Headaches MEDICATIONS: gabapentin (NEURONTIN) 300 mg capsule TAKE 1 CAPSULE BY MOUTH THREE TIMES DAILY DIRECTED meloxicam (MOBIC) 15 mg tablet Take 1 tablet by mouth every afternoon. traMADol (ULTRAM) 50 mg tablet Take 1 tablet by mouth every 6 hours as needed for pain for up to 8 days. cyclobenzaprine (FLEXERIL) 10 mg tablet Take 1 tablet by mouth every 8 hours as needed for muscle spasm. ALPRAZolam (XANAX) 0.25 mg tablet Take 1 tablet by mouth every 6 hours as needed for anxiety for upto 90 days. sertraline (ZOLOFT) 50 mg tablet Take 1 tablet by mouth once daily. After taking 1/2 tab every day for the first week, Allergies, past surgical history, family history and past medical history were reviewed per this encounter. Medications were reviewed and verified. 08/04/2024 10/03/2024 INTAKE PAIN ASSESSMENT Are you having pain associated with your visit today? Yes, Provider notified Yes, Provider notified Pain Level 6 Pain Location Back-Lower Back-Lower Description Pressure;Radiating;Sharp;Shooting;Sore;Spasm;Stabbing;Tenderness;Tightness;Tingl ing Achi ng;Burning;Cramping;Cutting;Numbness;Radiating;Sharp;Shooting;Sore;Spasm;Stabbin g;Stabbing/Not Incision;Stiffness;Tenderness;Tightness;Tingling Duration Amount of Time 24 Duration Units Months Hours Frequency Continuous Continuous Intervention/Comfort measure Medication;Reposition;Relaxation;Cold;Education;Exercise;Heat;Positioning Medication;Relaxation;Cold;Education;Exercise;Heat;Music;Pillow support;Positioning Comments Siatica Siatica If pain assessment is 0, no action needed. If pain assessment is positive, please see assessment and plain. Objective BP 136/84 (BP Site: Right Arm, BP Position: Standing, BP Cuff Size: Regular Adult) Pulse 94 Temp 36.3 C (97.3 F) (Temporal) Resp 18 Ht 163.8 cm (5' 4.5) Wt 71.1 kg (156 lb 12.8 oz) LMP 10/04/2024 (Exact Date) SpO2 96% BMI 26.50 kg/m Physical Exam Vitals reviewed. Constitutional: Appearance: Normal appearance. HENT: Head: Normocephalic and atraumatic. Nose: Nose normal. Eyes: Extraocular Movements: Extraocular movements intact. Pupils: Pupils are equal, round, and reactive to light. Cardiovascular: Rate and Rhythm: Normal rate and regular rhythm. Pulmonary: Effort: Pulmonary effort is normal. Breath sounds: Normal breath sounds. Abdominal: General: Bowel sounds are normal. Palpations: Abdomen is soft. Musculoskeletal: General: Tenderness present. Normal range of motion. Cervical back: Normal range of motion and neck supple. Skin: General: Skin is warm and dry. Capillary Refill: Capillary refill takes less than 2 seconds. Neurological: General: No focal deficit present. Mental Status: She is alert and oriented to person, place, and time. Mental status is at baseline. Motor: Weakness present. Gait: Gait abnormal. Deep Tendon Reflexes: Reflexes abnormal. Psychiatric: Mood and Affect: Mood normal. Behavior: Behavior normal. Procedures Assessment and Plan Encounter Diagnosis ICD-10-CM 1. Spinal stenosis of lumbosacral region M48.07 Tramadol for pain. Follow-up with orthopedics at [facility]. Margarita Mosley MD October 06, 2024 10/06/2024 * Damaso Mistry LPN - 10/06/2024 10:20 AM EST Patient is in office for follow up from recent ED visit to [facility]. Patient continues to experience increased pain in lower back. Patient has an appointment on Sunday with [facility]. No refills needed. Damaso Mistry LPN October 06, 2024 10:34 AM documented in this encounterDay[facility] Center01-27-2025 NoteHNO ID: [id number] Author: DAMASO MISTRY LPN Service: ? Author Type: LICENSED NURSE Type: Progress Notes Filed: 10/06/2024 11:44 Note Text: Patient is in office for follow up from recent ED visit to [facility]. Patient continues to experience increased pain in lower back. Patient has an appointment on Sunday with [facility]. No refills needed. Damaso Mistry LPN October 06, 2024 10:34 [facility] encounter Note * Telephone Encounter - Chris Law MD - 10/06/2024 8:04 AM EST Yes needs appointment if wants rx thanks [facility] Work Phone: [phone] Miscellaneous Notes* Telephone Encounter - Chris Law MD - 10/06/2024 8:04 AM EST Yes needs appointment if wants rx thanks * Telephone Encounter - Rebekah Weinberg RN - 10/03/2024 2:07 PM EST Does patient need an appointment to discuss? documented in this encounterDay[facility] Center01-24-2025 Telephone encounter Note * Telephone Encounter - Margarita Mosley MD - 10/03/2024 6:48 PM EST TO PHARMACY [facility]01-24-2025 Miscellaneous Notes* Telephone Encounter - Margarita Mosley MD - 10/03/2024 6:48 PM EST TO PHARMACY * Telephone Encounter - Damaso Mistry LPN - 10/03/2024 10:20 AM EST Patient phoned office requesting refill for Tramadol. Patient was recently in ED on Sunday for severe pain. Medications have changed since last visit Current Outpatient Medications on File Prior to Visit Medication Sig gabapentin (NEURONTIN) 300 mg capsule TAKE 1 CAPSULE BY MOUTH THREE TIMES DAILY DIRECTED meloxicam (MOBIC) 15 mg tablet Take 1 tablet by mouth every afternoon. traMADol (ULTRAM) 50 mg tablet cyclobenzaprine (FLEXERIL) 10 mg tablet Take 1 tablet by mouth every 8 hours as needed for muscle spasm. ALPRAZolam (XANAX) 0.25 mg tablet Take 1 tablet by mouth every 6 hours as needed for anxiety for upto 90 days. sertraline (ZOLOFT) 50 mg tablet Take 1 tablet by mouth once daily. After taking 1/2 tab every day for the first week, No current facility-administered medications on file prior to visit. She has been Alternating Tylenol with Tramadol Tramadol and Flexeril help the most Patient states she has not been taking her Xanax due to them informing her not to at the hospital. Patient is having severe anxiety due to current situation and living situation, she had to move in with mother in law, due to not being able to care for children Has follow up in our office on Sunday Damaso Mistry LPN October 03, 2024 10:18 AM documented in this encounterDayton [facility] Center01-24-2025 Telephone encounter Note * Telephone Encounter - Rebekah Weinberg RN - 10/03/2024 2:07 PM EST Does patient need an appointment to discuss? [facility]01-24-2025 Telephone encounter Note* Telephone Encounter - Damaso Mistry LPN - 10/03/2024 10:20 AM EST Patient phoned office requesting refill for Tramadol. Patient was recently in ED on Sunday for severe pain. Medications have changed since last visit Current Outpatient Medications on File Prior to Visit Medication Sig gabapentin (NEURONTIN) 300 mg capsule TAKE 1 CAPSULE BY MOUTH THREE TIMES DAILY DIRECTED meloxicam (MOBIC) 15 mg tablet Take 1 tablet by mouth every afternoon. traMADol (ULTRAM) 50 mg tablet cyclobenzaprine (FLEXERIL) 10 mg tablet Take 1 tablet by mouth every 8 hours as needed for muscle spasm. ALPRAZolam (XANAX) 0.25 mg tablet Take 1 tablet by mouth every 6 hours as needed for anxiety for upto 90 days. sertraline (ZOLOFT) 50 mg tablet Take 1 tablet by mouth once daily. After taking 1/2 tab every day for the first week, No current facility-administered medications on file prior to visit. She has been Alternating Tylenol with Tramadol Tramadol and Flexeril help the most Patient states she has not been taking her Xanax due to them informing her not to at the hospital. Patient is having severe anxiety due to current situation and living situation, she had to move in with mother in law, due to not being able to care for children Has follow up in our office on Sunday Damaso Mistry LPN October 03, 2024 10:18 AM [facility]01-07-2025 Telephone encounter Note* Telephone Encounter - Damaso Mistry LPN - 09/16/2024 4:30 PM EST Requested Prescriptions Pending Prescriptions Disp Refills traMADol (ULTRAM) 50 mg tablet 28 tablet 0 Sig: Take 1 tablet by mouth every 6 hours as needed for pain for up to 7 days. Damaso Mistry LPN September 16, 2024 4:30 PM [facility]01-07-2025 Miscellaneous Notes* Telephone Encounter - Damaso Mistry LPN - 09/16/2024 4:30 PM EST Requested Prescriptions Pending Prescriptions Disp Refills traMADol (ULTRAM) 50 mg tablet 28 tablet 0 Sig: Take 1 tablet by mouth every 6 hours as needed for pain for up to 7 days. Damaso Mistry LPN September 16, 2024 4:30 PM documented in this encounterDayton [facility] Center01-07-2025 Telephone encounter Note * Telephone Encounter - Damaso Mistry LPN - 09/16/2024 4:13 PM EST Last Office Visit: 08-06-2024 Next Scheduled Office Visit: 02-04-2025 Requested Prescriptions Pending Prescriptions Disp Refills cyclobenzaprine (FLEXERIL) 10 mg tablet 90 tablet 0 Sig: Take 1 tablet by mouth every 8 hours as needed for muscle spasm. Damaso Mistry LPN September 16, 2024 4:14 PM [facility]01-07-2025 Miscellaneous Notes* Telephone Encounter - Damaso Mistry LPN - 09/16/2024 4:13 PM EST Last Office Visit: 08-06-2024 Next Scheduled Office Visit: 02-04-2025 Requested Prescriptions Pending Prescriptions Disp Refills cyclobenzaprine (FLEXERIL) 10 mg tablet 90 tablet 0 Sig: Take 1 tablet by mouth every 8 hours as needed for muscle spasm. Damaso Mistry LPN September 16, 2024 4:14 PM documented in this encounterDayton [facility] Center12-09-2024 Telephone encounter Note * Telephone Encounter - Damaso Mistry LPN - 08/18/2024 4:49 PM EST Patient notified of information, verbalized understanding. No questions, comments, or concerns at this time. Damaso Mistry LPN August 18, 2024 4:49 PM [facility]12-09-2024 Miscellaneous Notes* Telephone Encounter - Damaso Mistry LPN - 08/18/2024 4:49 PM EST Patient notified of information, verbalized understanding. No questions, comments, or concerns at this time. Damaso Mistry LPN August 18, 2024 4:49 PM * Telephone Encounter - Margartia Mosley MD - 08/18/2024 4:42 PM EST signed * Telephone Encounter - Damaso Mistry LPN - 08/18/2024 2:36 PM EST Patient phoned office requesting a refill on Tramadol for increased back pain. Patient does have anappointment scheduled with [facility] next Sunday, but states she is needing medication up to the appointment for her pain Damaso Mistry LPN August 18, 2024 2:36 PM documented in this encounterDayton [facility] Center12-09-2024 Telephone encounter Note * Telephone Encounter - Margarita Mosley MD - 08/18/2024 4:42 PM EST signed [facility]12-09-2024 Telephone encounter Note* Telephone Encounter - Damaso Mistry LPN - 08/18/2024 2:36 PM EST Patient phoned office requesting a refill on Tramadol for increased back pain. Patient does have anappointment scheduled with [facility] next Sunday, but states she is needing medication up to the appointment for her pain Damaso Mistry LPN August 18, 2024 2:36 PM [facility]12-02-[facility] Telephone encounter Note* Telephone Encounter - Susan Chen LPN - 08/11/2024 3:55 PM EST Patient left a message wanting to know if you'll refill her cyclobenzaprine until she sees ortho. LUCIA 08/06/24. Susan Chen LPN August 11, 2024 3:58 PM [facility]12-02-2024 Miscellaneous Notes* Telephone Encounter - Susan Chen LPN - 08/11/2024 3:55 PM EST Patient left a message wanting to know if you'll refill her cyclobenzaprine until she sees ortho. LUCIA 08/06/24. Susan Chen LPN August 11, 2024 3:58 PM documented in this encounterDayton [facility] Medical Center12-02-2024 Telephone encounter Note * Telephone Encounter - Damaso Mistry LPN - 08/11/2024 12:28 PM EST [facility] My chart message sent with information. Damaso Mistry LPN August 11, 2024 12:39 PM [facility]12-02-2024 Miscellaneous Notes* Telephone Encounter - Damaso Mistry LPN - 08/11/2024 12:28 PM EST Referral faxed to [facility] as requested by patient My chart message sent with information. Damaso Mistry LPN August 11, 2024 12:39 PM documented in this encounterDayton Va Medical Center12-02-2024 Telephone encounter Note * Telephone Encounter - Mira Euceda MA - 08/11/2024 11:21 AM EST Items addressed in this encounter: MyChart Encounter Ortho referral info given via mychart Able to close encounter. Mira Euceda MA August 11, 2024 11:21 AM 11:21 AM [facility]12-02-2024 Miscellaneous Notes* Telephone Encounter - Mira Euceda MA - 08/11/2024 11:21 AM EST Items addressed in this encounter: MyChart Encounter Ortho referral info given via mychart Able to close encounter. Mira Euceda MA August 11, 2024 11:21 AM 11:21 AM documented in this encounterDayton Va Medical Center12-02-2024 Telephone encounter Note * Telephone Encounter - Mira Euceda MA - 08/11/2024 11:11 AM EST Items addressed in this encounter: Fax/Forms Orthopedic Referral has been faxed to [facility] Faxed via RightFax, fax confirmation received Able to close encounter. Mira Euceda MA August 11, 2024 11:11 AM 11:11 AM [facility]12-02-2024 Miscellaneous Notes* Telephone Encounter - Mira Euceda MA - 08/11/2024 11:11 AM EST Items addressed in this encounter: Fax/Forms Orthopedic Referral has been faxed to [facility] [phone] Faxed via RightFax, fax confirmation received Able to close encounter. Mira Euceda MA August 11, 2024 11:11 AM 11:11 AM documented in this encounterDayton Va Medical Center11-27-2024 NoteHNO ID: [id number] Author: MARGARITA MOSLEY MD Service: ? Author Type: Physician Type: Progress Notes Filed: 08/06/2024 15:03 Note Text: Subjective Shruti Ruvalcaba is a 34 year old female. She presents today for her annual wellness visit. Additionally she has new complaint of low back pain with sciatica radiating to her right leg. She has a history of bulging disc in her lower back. She also complains of increased anxiety. She was previously on Zoloft, but stopped it while being . She has been taking some old Xanax with improvement of symptoms. Review of Systems Constitutional: Negative. HENT: Negative. Eyes: Negative. Respiratory: Negative. Cardiovascular: Negative. Gastrointestinal: Negative. Endocrine: Negative. Genitourinary: Negative. Musculoskeletal: Negative. Skin: Negative. Allergic/Immunologic: Negative. Neurological: Negative. Hematological: Negative. Psychiatric/Behavioral: Negative. PAST SURGICAL HISTORY Procedure Laterality Date DELIVERY ONLY 11/30/2023 LTCS EXTRACTION ERUPTED TOOTH wisdom teeth PAST SURGICAL HISTORY OF Left ACL VAGINOSCOPY PAST MEDICAL HISTORY Diagnosis Date anxiety/depression ASCUS with positive high risk HPV cervical Atypical glandular cells of undetermined significance (J LUIS) on cervical Pap smear 01/24/2022 Fielding HPV+ Breast disorder Complication of anesthesia Dysmenorrhea Excessive or frequent menstruation Heavy periods Gestational diabetes Gestational hypertension Migraine depression Tension headache FAMILY HISTORY Problem Relation Age of Onset Lipids Mother Hypertension Mother Thyroid Mother Hypertension Father Lipids Father No Known Problems Sister No Known Problems Sister No Known Problems Maternal Grandmother No Known Problems Maternal Grandfather Cancer Paternal Grandmother Lung Heart Paternal Grandfather MD at age 35 Alzheimer's Disease Other PGGGM Breast Cancer Other PGGGM No Known Problems Half-sister No Known Problems Son Social History Tobacco Use Smoking status: Every Day Current packs/day: 0.25 Average packs/day: 0.3 packs/day for 15.0 years (3.8 ttl pk-yrs) Types: Cigarettes Passive exposure: Never Smokeless tobacco: Never Vaping Use Vaping status: Never Used Substance Use Topics Alcohol use: Not Currently Comment: Occasionally Drug use: No ALLERGIES Allergen Reactions Pollen Unknown Headaches MEDICATIONS: cyclobenzaprine (FLEXERIL) 10 mg tablet Take 10 mg by mouth every 8 hours as needed for muscle spasm. traMADol (ULTRAM) 50 mg tablet Take 50 mg by mouth every 6 hours as needed for pain. ALPRAZolam (XANAX) 0.25 mg tablet Take 1 tablet by mouth every 6 hours as needed for anxiety for up to 90 days. methylPREDNISolone (MEDROL, TIM,) 4 mg Dose-Pack Take as instructed per package. sertraline (ZOLOFT) 50 mg tablet Take 1 tablet by mouth once daily. After taking 1/2 tab every day for the first week, Allergies, past surgical history, family history and past medical history were reviewed per this encounter. Medications were reviewed and verified. 02/21/2024 08/04/2024 INTAKE PAIN ASSESSMENT Are you having pain associated with your visit today? No Yes, Provider notified Pain Level 6 Pain Location Back-Lower Description Pressure;Radiating;Sharp;Shooting;Sore;Spasm;Stabbing;Tenderness;Tightness;Tingl ing Duration Units Months Frequency Continuous Intervention/Comfort measure Medication;Reposition;Relaxation;Cold;Education;Exercise;Heat;Positioning Comments Siatica If pain assessment is 0, no action needed. If pain assessment is positive, please see assessment and plain. Objective BP 118/82 (BP Site: Left Arm, BP Position: Sitting, BP Cuff Size: Regular Adult) Pulse 96 Temp 36.1 ?C (96.9 ?F) (Temporal) Resp 18 Ht 163.8 cm (5' 4.5) Wt 71.2 kg (157 lb) LMP 08/06/2024 (Exact Date) SpO2 98% No BMI 26.53 kg/m? Physical Exam Vitals reviewed. Constitutional: Appearance: Normal appearance. HENT: Head: Normocephalic and atraumatic. Nose: Nose normal. Eyes: Extraocular Movements: Extraocular movements intact. Pupils: Pupils are equal, round, and reactive to light. Cardiovascular: Rate and Rhythm: Normal rate and regular rhythm. Pulmonary: Effort: Pulmonary effort is normal. Breath sounds: Normal breath sounds. Abdominal: General: Bowel sounds are normal. Palpations: Abdomen is soft. Musculoskeletal: General: Normal range of motion. Cervical back: Normal range of motion and neck supple. Skin: General: Skin is warm and dry. Capillary Refill: Capillary refill takes less than 2 seconds. Neurological: General: No focal deficit present. Mental Status: She is alert and oriented to person, place, and time. Mental status is at baseline. Psychiatric: Mood and Affect: Mood normal. Behavior: Behavior normal. Assessm (more content not included)...[facility]11-27-[facility] History of Present illness Narrative* Margarita Mosley MD - 08/06/2024 2:50 PM EST Subjective Shruti Ruvalcaba is a 34 year old female. She presents today for her annual wellness visit. Additionally she has new complaint of low back pain with sciatica radiating to her right leg. She has a history of bulging disc in her lower back. She also complains of increased anxiety. She was previously on Zoloft, but stopped it while being . She has been taking some old Xanax with improvement of symptoms. Review of Systems Constitutional: Negative. HENT: Negative. Eyes: Negative. Respiratory: Negative. Cardiovascular: Negative. Gastrointestinal: Negative. Endocrine: Negative. Genitourinary: Negative. Musculoskeletal: Negative. Skin: Negative. Allergic/Immunologic: Negative. Neurological: Negative. Hematological: Negative. Psychiatric/Behavioral: Negative. PAST SURGICAL HISTORY Procedure Laterality Date DELIVERY ONLY 11/30/2023 LTCS EXTRACTION ERUPTED TOOTH wisdom teeth PAST SURGICAL HISTORY OF Left ACL VAGINOSCOPY PAST MEDICAL HISTORY Diagnosis Date anxiety/depression ASCUS with positive high risk HPV cervical Atypical glandular cells of undetermined significance (J LUIS) on cervical Pap smear 01/24/2022 Fielding HPV+ Breast disorder Complication of anesthesia Dysmenorrhea Excessive or frequent menstruation Heavy periods Gestational diabetes Gestational hypertension Migraine depression Tension headache FAMILY HISTORY Problem Relation Age of Onset Lipids Mother Hypertension Mother Thyroid Mother Hypertension Father Lipids Father No Known Problems Sister No Known Problems Sister No Known Problems Maternal Grandmother No Known Problems Maternal Grandfather Cancer Paternal Grandmother Lung Heart Paternal Grandfather MD at age 35 Alzheimer's Disease Other PGGGM Breast Cancer Other PGGGM No Known Problems Half-sister No Known Problems Son Social History Tobacco Use Smoking status: Every Day Current packs/day: 0.25 Average packs/day: 0.3 packs/day for 15.0 years (3.8 ttl pk-yrs) Types: Cigarettes Passive exposure: Never Smokeless tobacco: Never Vaping Use Vaping status: Never Used Substance Use Topics Alcohol use: Not Currently Comment: Occasionally Drug use: No ALLERGIES Allergen Reactions Pollen Unknown Headaches MEDICATIONS: cyclobenzaprine (FLEXERIL) 10 mg tablet Take 10 mg by mouth every 8 hours as needed for muscle spasm. traMADol (ULTRAM) 50 mg tablet Take 50 mg by mouth every 6 hours as needed for pain. ALPRAZolam (XANAX) 0.25 mg tablet Take 1 tablet by mouth every 6 hours as needed for anxiety for upto 90 days. methylPREDNISolone (MEDROL, TIM,) 4 mg Dose-Pack Take as instructed per package. sertraline (ZOLOFT) 50 mg tablet Take 1 tablet by mouth once daily. After taking 1/2 tab every day for the first week, Allergies, past surgical history, family history and past medical history were reviewed per this encounter. Medications were reviewed and verified. 02/21/2024 08/04/2024 INTAKE PAIN ASSESSMENT Are you having pain associated with your visit today? No Yes, Provider notified Pain Level 6 Pain Location Back-Lower Description Pressure;Radiating;Sharp;Shooting;Sore;Spasm;Stabbing;Tenderness;Tightness;Tingl ing Duration Units Months Frequency Continuous Intervention/Comfort measure Medication;Reposition;Relaxation;Cold;Education;Exercise;Heat;Positioning Comments Siatica If pain assessment is 0, no action needed. If pain assessment is positive, please see assessment and plain. Objective BP 118/82 (BP Site: Left Arm, BP Position: Sitting, BP Cuff Size: Regular Adult) Pulse 96 Temp 36.1 C (96.9 F) (Temporal) Resp 18 Ht 163.8 cm (5' 4.5) Wt 71.2 kg (157 lb) LMP 08/06/2024 (Exact Date) SpO2 98% No BMI 26.53 kg/m Physical Exam Vitals reviewed. Constitutional: Appearance: Normal appearance. HENT: Head: Normocephalic and atraumatic. Nose: Nose normal. Eyes: Extraocular Movements: Extraocular movements intact. Pupils: Pupils are equal, round, and reactive to light. Cardiovascular: Rate and Rhythm: Normal rate and regular rhythm. Pulmonary: Effort: Pulmonary effort is normal. Breath sounds: Normal breath sounds. Abdominal: General: Bowel sounds are normal. Palpations: Abdomen is soft. Musculoskeletal: General: Normal range of motion. Cervical back: Normal range of motion and neck supple. Skin: General: Skin is warm and dry. Capillary Refill: Capillary refill takes less than 2 seconds. Neurological: General: No focal deficit present. Mental Status: She is alert and oriented to person, place, and time. Mental status is at baseline. Psychiatric: Mood and Affect: Mood normal. Behavior: Behavior normal. Assessment and Plan Encounter Diagnosis ICD-10-CM 1. Wellness examination Z00.00 COMPREHENSIVE METABOLIC PANEL 2. Screening for depression Z13.31 DEPRESSION SCREENING 3. Acute midline low back pain with right-sided sciatica M54.41 CONSULT TO ORTHOPAEDICS traMADol (ULTRAM) 50 mg tablet Treat with Medrol Dosepak. Consult to orthopedic surgery 4. Anxiety F41.9 ALPRAZolam (XANAX) 0.25 mg tablet Restart Zoloft. Xanax as needed 5. Hypertension, essential I10 COMPREHENSIVE METABOLIC PANEL Stable on current medication 6. Lipid screening Z13.220 LIPID PANEL BASIC 7. Screening for deficiency anemia Z13.0 COMPLETE BLOOD COUNT AND DIFFERENTIAL All open preventative health maintenance topics discussed with patient in detail. This includes risks and benefits regarding vaccines, cancer screening, healthy life style, and diet. Check labs as above. Monitor blood pressure regularly. Exercise as tolerated. Maintain good diet. Follow-up in 6 months. Margarita Mosley MD August 06, 2024 August 06, 2024 * Damaso Mistry LPN - 08/06/2024 1:55 PM EST [facility]UE HE[facility] MAINTENANCE Pneumococcal Vaccine(1 of 2 - PCV) declined Hepatitis B Vaccine(1 of 3 - 19+ 3-dose series) declined Annual PCP Team Chronic Disease Visit declined Influenza Vaccine(1) declined Covid-19 Vaccine( - ) declined Cervical Cancer Screening due on 01/09/2025 Damaso Mistry LPN August 06, 2024 2:06 PM documented in this encounterDayton [facility] Center11-27-2024 NoteHNO ID: [id number] Author: DAMASO MISTRY LPN Service: ? Author Type: LICENSED NURSE Type: Progress Notes Filed: 08/06/2024 15:03 Note Text: DUE HEALTH MAINTENANCE Pneumococcal Vaccine(1 of 2 - PCV) declined Hepatitis B Vaccine(1 of 3 - 19+ 3-dose series) declined Annual PCP Team Chronic Disease Visit declined Influenza Vaccine(1) declined Covid-19 Vaccine( season) declined Cervical Cancer Screening due on 01/09/2025 Damaso Mistry LPN August 06, 2024 2:06 PM[facility]* Patient Instructions* Erica Walsh MA - 02/21/2024 2:55 PM EDT YOUR RECOVERY It may take a few weeks for your cervix to heal. While your cervix heals, you may have: - Vaginal bleeding (less than a normal menstrual period) - Mild cramping - A brown-black vaginal discharge (similar to coffee grounds) which is a result of the paste used to help stop bleeding from the procedure Do NOT put anything in the vagina for 1 week after your colposcopy if your doctor does a biopsy of your cervix. This includes sex, tampons, and douches. If you have any discomfort, you may take an over the counter pain medication (motrin, advil, ibuprofen, tylenol, etc). If this does not relieve your discomfort, contact your doctor's office for a prescription strength pain medication. It is okay to wear a sanitary pad until the discharge and spotting stops. RISKS Although problems seldom occur with colposcopy, there can be some complications. You may feel faintduring and shortly after the procedure as well as have some bleeding and vaginal discharge after the procedure. There is also a risk of infection after the procedure. These complications are rare andcan be easily treated. You should contact you doctor is you have any of the following: - Heavy bleeding (more than your normal period) - Bleeding with clots - Severe abdominal pain - Fever (more than 100.4F) - Foul smelling vaginal discharge RESULTS If a biopsy was taken, we will have the results of your biopsy in 1-2 weeks. If you do not hear theresults of your biopsy after 2 weeks, please contact your physicians office for the results. Depending on the biopsy results, your doctor will determine your follow up plan which may include further testing or treatments. STAYING HEALTHY After the procedure, you will need to see your doctor for follow up visits during the year. At these visits your doctor will check the health of your cervix with a pap smear. After three normal pap smears, your doctor will allow you to return to having exams once a year. If you have another abnormal pap smear, you may need closer follow up for longer or you may need additional treatment. By making a few lifestyle changes after the procedure, you can help protect the health of your cervix: - Have regular pelvic exams and pap smears as ordered by your doctor. - Stop smoking as smoking increases your risk of developing a cancer of the cervix - If you have more than one sexual partner, limit your number of partners and use condoms to reduceyour risks of STDs. If you have any additional questions, please contact your doctor's office. documented in this encounterDayton [facility] Center06-13-2024 History of Present illness Narrative* Chris Law MD - 02/21/2024 2:54 PM EDT Dental Mechanic offered: Patient declines. Bahena is a 33 year old Female who presents today for a colposcopy. The patient's last pap smear was ASCUS with positive HPV from January 2024. Patient has a history of abnormal pap: Yes. The patient has had prior treatment: Colposcopy. test: negative UNIVERSAL PROTOCOL / SAFETY CHECKLIST Procedure to be Performed: Colposcopy with possible biopsies . Sign In: A Moment of CARE was completed. Personnel directly involved with the procedure wore the appropriate PPE (Personal Protective Equipment). Patient/Surrogate Stated/Verified: PATIENT VERIFIED(optional for EMERGENT procedures): Patient name, Date of , Relevant allergies, and The intended procedure Time Out Communication: Intended patient and procedure match the source documents. Consent documented and matches the intended procedure. Sign Out: SIGN OUT (optional for EMERGENT procedures): All specimen containers correctly labeled. All instruments, equipment, possible retained foreign bodies accounted for. Post-procedure follow-up management communicated and Plan of Care Visit completed when applicable. PROCEDURE: EXTERNAL GENITALIA: Normal in appearance without lesions VAGINA: Normal in appearance without lesions CERVIX: Speculum placed in vagina and excellent visualization of cervix achieved. Cervix swabbed x 3 with 3% acetic acid solution. Cervix grossly normal. Squamocolumnar junction visualized. No acetowhite changes, punctations, mosaicism or atypical vasculature noted. BIOPSY: Not done. ECC: done HEMOSTASIS: Obtained with n/a Procedure Summary: Patient tolerated procedure well. ASSESSMENT: HPV effect PLAN: Specimens labeled and sent to Pathology. Will notify patient of results in 1-2 weeks. Post-procedure instructions reviewed and written material given to the patient. Chris Law DO documented [facility] Telephone encounter Note * Telephone Encounter - Deena Mcnally RN - 01/31/2024 8:50 AM EDT Order linked to upcoming appointment. Deena Mcnally RN [facility]05-[facility] Miscellaneous Notes* Telephone Encounter - Deena Mcnally RN - 01/31/2024 8:50 AM EDT Order linked to upcoming appointment. Deena Mcnally RN * Telephone Encounter - Chris Law MD - 01/31/2024 7:57 AM EDT filed * Telephone Encounter - Rebekah Weinberg RN - 01/28/2024 11:30 AM EDT Patient notified. Appointment scheduled. Please file [place] order to attach to her appointment. Thankyou. Rebekah Weinberg RN * Telephone Encounter - Deena Mcnally RN - 01/28/2024 9:33 AM EDT Left message to call office. Deena Mcnally RN * Telephone Encounter - Deena Mcnally RN - 01/28/2024 9:33 AM EDT ----- Message from Chris Law MD sent at 01/28/2024 8:48 AM EDT ----- Notify pt abnormal pap test Needs colposcopy documented in this encounterDay[facility]05-[facility] Telephone encounter Note * Telephone Encounter - Chris Law MD - 01/31/2024 7:57 AM EDT filed [facility] Telephone encounter Note* Telephone Encounter - Rebekah Weinberg RN - 01/28/2024 11:30 AM EDT Patient notified. Appointment scheduled. Please file [place] order to attach to her appointment. Thankyou. Rebekah Weinberg RN [facility]05-20-2024 Telephone encounter Note* Telephone Encounter - Deena Mcnally RN - 01/28/2024 9:33 AM EDT Left message to call office. Deena Mcnally RN [facility]05-20-2024 Telephone encounter Note* Telephone Encounter - Deena Mcnally RN - 01/28/2024 9:33 AM EDT ----- Message from Chris Law MD sent at 01/28/2024 8:48 AM EDT ----- Notify pt abnormal pap test Needs colposcopy [facility] Telephone encounter Note* Telephone Encounter - Maranda Rand - 01/28/2024 8:24 AM EDT LUCIA:05/05/23 NSOV: no follow up scheduled Left voicemail to schedule a follow up visit. Requested Prescriptions Pending Prescriptions Disp Refills sertraline (ZOLOFT) 25 mg tablet [Pharmacy Med Name: Sertraline HCl 25 MG Oral Tablet] 90 tablet 0 Sig: Take 1 tablet by mouth once daily Thank you. Maranda Swanson January 28, 2024 8:30 AM [facility]05-20-2024 Miscellaneous Notes* Telephone Encounter - Maranda Rand - 01/28/2024 8:24 AM EDT LUCIA:05/05/23 NSOV: no follow up scheduled Left voicemail to schedule a follow up visit. Requested Prescriptions Pending Prescriptions Disp Refills sertraline (ZOLOFT) 25 mg tablet [Pharmacy Med Name: Sertraline HCl 25 MG Oral Tablet] 90 tablet 0 Sig: Take 1 tablet by mouth once daily Thank you. Maranda Swanson January 28, 2024 8:30 AM documented in this encounterDay[facility]05-02-2024 History of Present illness Narrative* Chris Law MD - 01/10/2024 3:22 PM EDT Dental Mechanic offered: Patient declines. VISIT Shruti Ruvalcaba is a 33 year old year old here for visit. Delivery Summary: c/s 11/30/2023 ROS/ Recovery: Feeding: Breast feeding problems: None Menses since delivery: none Menstrual pattern prior to : Regular periods [place] since delivery: Resumed Depression: denies symptoms of depression. OB Depression and Anxiety Screening- This Encounter (since 01/09/2024) Over the past 2 weeks have you felt down, depressed, or hopeless? Negative Over the past two weeks, have you felt little interest or pleasure in doing things? Negative Feeling nervous, anxious or on edge 0-Not at all Not being able to stop or control worrying 0-Not al all Anxiety Pre-Screening Total (If >/= 3 additional questions will be reviewed) 0 Emotional support: Yes Bowel symptoms: Negative for abdominal discomfort, blood in stools or black stools and change in bowel habits Abdomen: She reports no incisional redness, tenderness, erythema and slight tenderness Bladder symptoms: No dysuria, gross hematuria, urinary frequency, urinary urgency, or incontinence Other issues: None Last Pap: 2022 abnormal, LSIL HPV: positive PAST MEDICAL HISTORY Diagnosis Date anxiety/depression ASCUS with positive high risk HPV cervical Atypical glandular cells of undetermined significance (J LUIS) on cervical Pap smear 01/24/2022 [place] HPV+ Breast disorder Complication of anesthesia Dysmenorrhea Excessive or frequent menstruation Heavy periods Gestational diabetes Gestational hypertension Migraine depression Tension headache PAST SURGICAL HISTORY Procedure Laterality Date DELIVERY ONLY 11/30/2023 LTCS EXTRACTION ERUPTED TOOTH wisdom teeth PAST SURGICAL HISTORY OF Left ACL VAGINOSCOPY FAMILY HISTORY Problem Relation Age of Onset Lipids Mother Hypertension Mother Thyroid Mother Hypertension Father Lipids Father No Known Problems Sister No Known Problems Sister No Known Problems Maternal Grandmother No Known Problems Maternal Grandfather Cancer Paternal Grandmother Lung Heart Paternal Grandfather MD at age 35 Alzheimer's Disease Other PGGGM Breast Cancer Other PGGGM No Known Problems Half-sister No Known Problems Son Social History Tobacco Use Smoking status: Every Day Packs/day: 0.25 Years: 15.00 Additional pack years: 0.00 Total pack years: 3.75 Types: Cigarettes Passive exposure: Never Smokeless tobacco: Never Vaping Use Vaping Use: Never used Substance Use Topics Alcohol use: Not Currently Comment: Occasionally Drug use: No PHYSICAL EXAMINATION: BP 118/70 Wt 174 lb 3.2 oz (79.0kg) LMP 02/01/2023 GENERAL: pleasant, female in no apparent distress HEENT: Normocephalic, atraumatic, mucus membranes moist, and no lesions NECK: full range of motion DERMATOLOGY: Normal, without lesions, non-icteric, and non-hirsute BREAST: soft, non-tender, symmetric, no dominant mass, normal nipple-areolar complex, no lymphadenopathy, and no nipple discharge CHEST: Normal inspiratory effort ABDOMEN: soft, non-tender, and no masses. INCISION: No incisional redness, swelling, or drainage PELVIC: external genitalia normal, normal Bartholin's glands, urethra, Indiahoma's glands, no vulvar lesions, no cervical lesions, good vaginal support, brown vaginal discharge present, normal appearing perineal body and perianal region BIMANUAL: uterus normal size, shape and consistency, no adnexal masses, and non-tender NEURO: exam grossly non-focal EXTREMITIES: normal ASSESSMENT AND PLAN: 33 year old status post CS with normal course. Contraception plan: Oral contraceptives and condoms Follow up: GDM: Needs 2 hour GTT Chris Law DO documented in this encounterDay[facility]03-24-2024 Discharge summary Author Vinita Webster [facility] December 02, 2023 9:42am Note Date/Time December 02, 2023 9:3 9am [facility] Medical Records Department [address] [place] [id number] Discharge Summary 12/02/23 0938 MR#: [id number] Acct: [id number] Name: SHRUTI RUVALCABA Rep #:[id number] : 1990 33 From: Vinita MITCHELL PCP: Dr. Margarita Mosley MD Status:ADM IN Location: [id number] Providers Date of Admission: 11/30/23 Date of Discharge: 12/02/23 Primary Care Physician: Dr. Margarita Mosley MD Reason For Visit: C SECTION/CESECTION DELIVERY Diagnosis Discharge Diagnosis (1) Delivery by elective section: Status: Acute Code(s): O82 - Encounter for delivery without indication Plan 1) POD #2 2) Pain management 3) vitals stable 4) D/C home 5) Follow up 1 week and 6 weeks PP Medications at Discharge Home Medications sertraline 25 mg tablet (Zoloft) 25 mg PO DAILY depression 11/30/23 acetaminophen 500 mg tablet 1,000 mg (2 x 500 mg) PO Q6 #0 tabs 12/02/23 ibuprofen 600 mg tablet 600 mg PO Q6H #0 tabs 12/02/23 oxycodone 5 mg tablet 5 mg PO Q6H 7 days #7 tabs 12/02/23 Hospital Course Summary of Care Provided Minutes Spent on Discharge: 15 Hospital Course: Elective section. Normal course. D/C home POD #2 Weight / BMI Weight Weight: 189 lb 13.088 oz Body Mass Index (BMI) 31.6 ABG / Lab / Microbiology Data 12/01/23 04:55 Meaningful Use Info Meaningful Use Diagnoses (Choose all that apply): None applicable Discharge Plan Admission Admit Date/Time: 11/30/23 05:10 Primary Reason for Your Visit: section Attending Provider: Chris Law Primary Care Provider: Margarita Mosley Discharge Orders/Prescriptions Prescriptions: New acetaminophen 500 mg Tablet 1,000 mg PO Q6 Qty: 0 0RF ibuprofen 600 mg Tablet 600 mg PO Q6H Qty: 0 0RF oxycodone 5 mg Tablet 5 mg PO Q6H 7 Days Qty: 7 0RF Continued sertraline [Zoloft] 25 mg tablet 25 mg PO DAILY Discontinued HumaLOG KwikPen Insulin Rx Instructions: 11 units 1000 14 units 2300 Referrals / Follow Up: Margarita Mosley MD [Primary Care Provider] - Disposition Disposition (needs filled in before D/C Order can be placed): Home, Self Care 12/02/23 0942 <Electronically signed by Vinita Webster CNM> Cosigner Signature (if applicable): CC: GLYNN Webster; Dr. Margarita Mosley MD~ Signed [facility] Work Phone: 1(189) 696-651503-24-2024 Progress note Author Vinita Webster [facility] December 02, 2023 9:38am Note Date/Time December 02, 2023 9:3 8am [facility] Medical Records Department [address] [place] [address] Progress Note - OBGYN 12/02/23 0935 MR#: [id number] Acct: [id number] Name: SHRUTI RUVALCABA Rep #:[id number] : 1990 33 From: Vinita MITCHELL PCP: Dr. Margarita Mosley MD Status:ADM IN Location: HW263-9 Subjective Subjective Doing well per patient and nursing staff. Ambulating and taking PO without difficulty. Voiding and passing flatus. Pain controlled. , services for assistance. Denies headache, visual changes, chest pain, shortness of breath, leg pain or increased bleeding. Lochia normal. Objective Data Objective Data Vital Signs: Vital Signs Temp Pulse Resp BP Pulse Ox O2 Del Method 97.9 F 58 L 14 110/71 97 Room Air 12/02/23 09:26 12/02/23 09:26 12/02/23 02:00 12/02/23 09:26 12/02/23 02:20 12/02/23 02:00 Oxygen Delivery Method Room Air Weight: 189 lb 13.088 oz Body Mass Index (BMI) 31.6 Intake & Output: Intake and Output for Last 24 Hours 11/30/23 12/01/23 12/02/23 23:59 23:59 23:59 Intake Total 1726.67 / 1726.67 Output Total 800 / 800 200 / 200 Balance 926.67 / 926.67 -200 / -200 Lab / Micro Data 12/01/23 04:55 ROS Constitutional Constitutional: Reports systems reviewed and no addt'l complaints, except as documented; Denies headache(s) Eyes Eyes: Denies acute decrease in peripheral vision, blurry vision or change in vision ENT HEENT: Reports systems reviewed and no addt'l complaints, except as documented Cardiovascular Cardiovascular: Denies chest pain or dizziness Respiratory/Chest Respiratory/Chest: Denies cough, dyspnea, dyspnea on exertion, shortness of breath at rest or shortness of breath with exertion Gastrointestinal Gastrointestinal: Denies abdominal pain, diarrhea, nausea or vomiting Genitourinary Genitourinary: Denies abdominal discomfort Musculoskeletal Musculoskeletal: Denies limited range of motion Integumentary Integumentary: Reports systems reviewed and no addt'l complaints, except as documented Neurologic Neurologic: Reports systems reviewed and no addt'l complaints, except as documented Psychiatric Psychiatric: Reports systems reviewed and no addt'l complaints, except as documented Endocrine Endocrinology: Reports systems reviewed and no addt'l complaints, except as documented Hematologic/Lymphatic Hematologic/Lymphatic: Reports systems reviewed and no addt'l complaints, exceptas documented Allergic/Immunologic Allergic/Immunologic: Reports systems reviewed and no addt'l complaints, except as documented Physical Exam Const alert and oriented x3 General Appearance: cooperative Orientation / Consciousness: awake, oriented to person, oriented to place and oriented to time Exam Limitations: no limitations HEENT normocephalic Head and Scalp: normal to inspection, normocephalic and atraumatic Face and Sinus: normal facial exam Eyes General Eye: normal appearance of both eyes Neck full ROM Chest Chest: symmetrical chest wall rise Resp normal respiratory effort and normal air movement Auscultation: clear to auscultation bilaterally Cardio regular rate, regular rhythm, S1 normal heart sound, S2 normal heart sound, no murmurs, no rub, no gallops and no clicks GI normal to inspection, nondistended, normoactive bowel sounds and non-tender GI Narrative: dressing dry and intact appearance of the vagina normal Bladder / Kidney Exam: no CVA tenderness Back/Spine normal ROM Extremity normal to inspection and full ROM Skin no rashes or lesions noted Neuro oriented x3, CN's II-XII intact bilaterally and moves all extremities Sensorium / Orientation: awake, alert and oriented to person Motor Exam: clonus absent Deep Tendon Reflexes: Rt Patellar (L4): 2+ and Lt Patellar (L4): 2+ Assessment & Plan (1) Delivery by elective section: PLAN: Plan 1) POD #2 2) Pain management 3) vitals stable 4) D/C home 5) Follow up 1 week and 6 weeks PP 12/02/23 0938 <Electronically signed by Vinita Webster CNM> Cosigner Signature (if applicable): CC: ~ Signed [facility] Work Phone: 1(661) 212-682603-23-2024 Progress note Author Chris Law [facility] December 01, 2023 9:13am Note Date/Time December 01, 2023 9:1 3am [facility] Medical Records Department [address] [place] [address] Progress Note - OBGYN 12/01/2312 MR#: [id number] Acct: [id number] Name: SHRUTI RUVALCABA CHAPINCITO Rep #:[id number] : 1990 33 From: Chris Law DO PCP: Dr. Margarita Mosley MD Status:ADM IN Location: [id number] Subjective Subjective The patient is doing well. Pain is well-controlled. She is ambulating without lightheadedness or dizziness. She denies chest pain, shortness of breath, leg pain. She is eating without nausea or vomiting. She is voiding without difficulty. Lochia is normal. She denies a headache or vision changes. Objective Data Objective Data Vital Signs: Vital Signs Temp Pulse Resp BP Pulse Ox O2 Del Method 98.2 F 82 18 133/71 H 96 Room Air 12/01/23 07:32 12/01/23 07:32 12/01/23 06:00 12/01/23 07:32 12/01/23 06:00 12/01/23 06:00 Oxygen Delivery Method Room Air Weight: 189 lb 13.088 oz Body Mass Index (BMI) 31.6 Intake & Output: Intake and Output for Last 24 Hours 11/29/23 11/30/23 12/01/23 23:59 23:59 23:59 Intake Total 1726.67 / 1726.67 Output Total 800 / 800 Balance 926.67 / 926.67 Lab / Micro Data 12/01/23 04:55 Labs: Laboratory Results - last 24 hr 11/30/23 06:00: Syphilis Total Ab Non-reactive 11/30/23 11:53: POC Glucose 110 H 12/01/23 04:54: POC Glucose 132 H 12/01/23 04:55: WBC 17.9 H, RBC 3.65 L, Hgb 11.0 L, Hct 33.6 L, MCV 92.1, MCH 30.1, MCHC 32.7, RDW Std Deviation 42.1, RDW Coeff of Elva 12.8, Plt Count 231, MPV 10.4 Physical Exam Const alert and no apparent distress General Appearance: comfortable HEENT normocephalic Resp normal respiratory effort GI soft to palpation and non-distended GI Narrative: ATTP, dressing in place Extremity no calf tenderness Assessment & Plan (1) Delivery by elective section: PLAN: The patient is postoperative day 1 from a section. She is doing well. She has had occasional mild range blood pressures but no symptoms of preeclampsia. Discussed with patient will continue to monitor blood pressure closely, and reviewed indication for medication. Continue routine postoperativecare. Possible discharge to home tomorrow pending blood pressure. 12/01/23 0913 <Electronically signed by Chris Law DO> Cosigner Signature (if applicable): CC: ~ Signed [facility] Work Phone: 1(854) 325-731403-22-2024 History of Present illness Narrative* Hanh Ward RN - 11/30/2023 9:56 AM EDT Patient delivered via by Dr. Law on 11/30/23 at [facility]. See OB history. Hanh Ward RN documented in this encounterDay[facility] Center03-22-2024 History and physical note Author Chris Law [facility] November 30, 2023 7:12am Note Date/Time November 30, 2023 7:1 1am [facility] Medical Records Department [address] [place] [address] H&P Exam - [employer] 11/30/23 0710 MR#: [id number] Acct: [id number] Name: SHRUTI RUVALCABA Rep #:[id number] : 1990 33 From: Chris Law DO PCP: Dr. Margarita Mosley MD Status:ADM IN [facility] History and Physical Date of Admission: 11/30/23 PROBLEM: pre op, elective section per patient request ? PAST SURGICAL HISTORY: PAST SURGICAL HISTORYExpand by Default PAST SURGICAL HISTORY Procedure Laterality Date ? EXTRACTION ERUPTED TOOTH ? ? ? wisdom teeth ? PAST SURGICAL HISTORY OF Left ? ? ACL ? VAGINOSCOPY ? PAST MEDICAL HISTORY: PAST MEDICAL HISTORYExpand by Default PAST MEDICAL HISTORY Diagnosis Date ? anxiety/depression ? ? ASCUS with positive high risk HPV cervical ? ? Atypical glandular cells of undetermined significance (J LUIS) on cervical Papsmear 01/24/2022 ? [place] HPV+ ? Breast disorder ? ? Complication of anesthesia ? ? Dysmenorrhea ? ? Excessive or frequent menstruation ? ? Heavy periods ? Gestational diabetes ? ? Gestational hypertension ? ? Migraine ? ? depression ? ? Tension headache ? ? ? SUBJECTIVE: Pt is doing well and offers no complaints. ? SOCIAL HISTORY: SOCIAL HISTORYExpand by Default Social History ? Tobacco Use ? Smoking status: Every Day ? ? Packs/day: 0.25 ? ? Years: 15.00 ? ? Additional pack years: 0.00 ? ? Total pack years: 3.75 ? ? Types: Cigarettes ? ? Passive exposure: Never ? Smokeless tobacco: Never Vaping Use ? Vaping Use: Never used Substance Use Topics ? Alcohol use: Not Currently ? ? Comment: Occasionally ? Drug use: No ? ? ALLERGIESExpand by Default ALLERGIES Allergen Reactions ? Pollen Other: See Comments ? ? Headaches ? Current Outpatient Medications on File Prior to Visit Medication Sig ? insulin NPH (HUMULIN N NPH INSULIN KWIKPEN) 100 unit/mL (3 mL) injection pen Inject before 10 units breakfast and at 14 units at bedtime. Subcutaneously ? insulin needles, DISPOSABLE, (PEN NEEDLE) 31 gauge x 5/16 1 Each once daily. ? blood sugar diagnostic test strip Use as directed to check glucose levels up to seven times daily. ? Lancets lancets Use as directed to check glucose levels up to seven times daily. ? ondansetron (ZOFRAN) 4 mg tablet Take 1 tablet by mouth every 8 hours as needed for nausea/vomiting. ? sertraline (ZOLOFT) 25 mg tablet Take 1 tablet by mouth once daily. ? [id number],crb-folic 30 mg iron- 1 mg tab Take by mouth. ? No current facility-administered medications on file prior to visit. ? OBJECTIVE: ? VITALS: BP 120/78 Wt 185 lb (83.9 kg) LMP 02/01/2023 BMI 31.26 kg/m? ? HEENT: Normocephalic, atraumatic, Mucus membranes moist without lesions. ? SKIN: No lesions. ? CHEST: No increased resp effort. ? HEART: Regular rate. ? BACK: Nontender with no CVA tenderness. ? ABDOMEN: Soft, non-tender, non-distended, no masses, no hepatosplenomegaly. ? LOWER EXTREMITIES: There was no pitting edema, no palpable cords and no skin changes. ? ? ? ASSESSMENT: pre op, elective section per patient request ? PLAN: 1) Discussed r/b/a primary section in detail. Fetus now vertex onbedside ultrasound. Fetus was previously breech presentation for which the section was scheduled. She understands the recommendation is to try fora vaginal delivery. The patient requests to proceed with the scheduled section. The rationale for the proposed surgery was discussed in addition to risks, benefits, and alternatives. General pre- and post-operative care was reviewed. Questions were answered. After discussion, the patient indicated a desire to proceed with the planned surgery. ? Chris Law DO Assessment & Plan Assessment/Plan (1) 39 weeks gestation of : 11/30/23 0710 <Electronically signed by Chris Law DO> Cosigner Signature (if applicable): CC: Dr. Margarita Mosley MD; Dr. Chris Law DO~ Signed ADDENDUM by Dr. Chris Law DO on 11/30/23 at 0712 Addendum with A2GDM, single umbilical artery, tobacco use, depression. H/o gHTN in prior . 11/30/23 0712<Electronically signed by Chris Law DO> Cosigner Signature (if applicable): cc: Dr. Margarita Mosley MD; Dr. Chris Law DO ~* Signed [facility] Work Phone: 1(457) 329-776003-22-2024 Procedure [facility] 11-26-2023 History of Present illness Narrative* Mayelin Villalba APRN.CNM - 11/26/2023 3:47 PM EDT NST SUMMARY PROVIDER ASSESSMENT AND INTERPRETATION Shruti Ruvalcaba is a 33 year old female, , who is at 38w3d with an ANDRY of 12/07/2023, by Ultrasound dating method. Indications for NST: Chronic HTN and Diabetes - Insulin Controlled Baseline: 130 Variability: Moderate Accelerations: Present 15 X 15 Decelerations: None Contractions: TOCO: None Interpretation: Category I and Reactive SIGNATURE: Mayelin Villalba APRN.CNM documented in this encounterDayton [facility] Center03-18-2024 Miscellaneous Notes* Quick Notes - Mayelin Villalba APRN.CNM - 11/26/2023 3:16 PM EDT Shruti Ruvalcaba is a 33 year old female who presents at 38w3d for a routine visit and NST. NST reactive, Cat. 1 tracing. No contractions noted or palpated. Positive movement. Denies headache, visual changes, chest pain, shortness of breath, vaginal bleeding, leakage of fluid, or dysuria. Feeling well, no complaints. Size equal to dates. 20lbs TWG. ASSESSMENT/PLAN: 1. Encounter for supervision of high risk in third trimester, antepartum - ICD9: V23.9, ICD10: O09.93 (primary diagnosis) 2. Insulin controlled gestational diabetes mellitus (GDM) in third trimester - ICD9: 648.83, ICD10:O24.414 3. 38 weeks gestation of - ICD9: V22.2, ICD10: Z3A.38 4. Single umbilical artery affecting management of mother in downs , antepartum - ICD9: V23.89, ICD10: O09.899 - MOD: VERTEX position but patient desires elective primary section if she does not go into spontaneous labor by Sunday - Labor precautions reviewed - Blood glucose levels reviewed and within normal ranges- continue present insulin regimen - RTO 1 week for incision check/ pp Mayelin Villalba APRN.CNM documented in this encounterDayton [facility] Center03-18-2024 Instructions* Patient Instructions* Priscilla Thompson MA - 11/26/2023 2:40 PM EDT SEQUENTIAL SCREENINGS [facility] offers sequential screenings for women who are interested in screenings for chromosomal abnormalities and certain defects during a . The sequential screen combinesultrasound and blood tests to determine the risk of chromosomal abnormalities, including Down's Syndrome (Trisomy 21) and Trisomy 18, as well as open neural tube defects including spina bifida. Ultrasound examination is performed between 11 weeks and 13 weeks gestational age. Blood tests are drawn after the ultrasound and again later in the between 15 and 21 weeks gestational age. Please let your physician know if you are interested in this testing. It will require an appointment withour electronic warfare technician. This is not an ultrasound performed by a physician in our office during a routine visit. SIGNS AND SYMPTOMS OF LABOR 1. Contractions every 10 minutes or more often 2. Clear, pink, or brownish fluid (water) leaking from vagina 3. Feeling that baby is pushing down, pressure 4. Low, dull backache 5. Cramps that feel like a period 6. Cramps with or without diarrhea If you notice any of the above symptoms, contact our office at [phone] and ask to speak with anurse. After hours, you can call doctors registry at [phone] OR call [facility] at [phone] ask to have the doctor web services professional paged. If you consider this an emergency, dial 0--3 or go to your nearest emergency department. NEED HELP? Are you dealing with a violent or abusive relationship? Are you a victim of rape or sexual assult? Call [facility] ([place]) 24 hour Crisis Hotline: 746.616.4166 or 289-218-8898. MANUAL Your Guide to a Healthy manual is now on-line. Visit [email or web address] to download your free copy documented in this encounterDayton [facility]03-[facility]24 Miscellaneous Notes* Telephone Encounter - Hanh Ward RN - 11/23/2023 8:56 AM EDT Orders and consent faxed to L&D for c/s. Hanh Ward RN documented in this encounterDayton [facility] Center03-15-2024 Miscellaneous Notes* Telephone Encounter - Hanh Ward RN - 11/23/2023 8:55 AM EDT See 11/22/23 Homeschool Snowboarding[employer] message encounter. Patient does still want to proceed with c/s on 11/29 as scheduled. Orders and consent faxed. Hanh Ward RN * Telephone Encounter - Rebekah Weinberg RN - 11/22/2023 3:00 PM EDT 37w6d Patient seen for Pre op for C/S and the baby is now vertex. C/S is scheduled for 11/29. Patient may still want to have C/S. She will call the office on Sunday with her decision. Pre Op paperwork in nurse triage room should she decide to continue with C/S. Rebekah Weinberg RN documented in this encounterDayton [facility] Center03-14-2024 History and physical note * Chris Law MD - 11/22/2023 5:33 PM EDT DATE OF SERVICE: November 22, 2023 PROBLEM: pre op, elective section per patient request PAST SURGICAL HISTORY: PAST SURGICAL HISTORY Procedure Laterality Date EXTRACTION ERUPTED TOOTH wisdom teeth PAST SURGICAL HISTORY OF Left ACL VAGINOSCOPY PAST MEDICAL HISTORY: PAST MEDICAL HISTORY Diagnosis Date anxiety/depression ASCUS with positive high risk HPV cervical Atypical glandular cells of undetermined significance (J LUIS) on cervical Pap smear 01/24/2022 Field[place] HPV+ Breast disorder Complication of anesthesia Dysmenorrhea Excessive or frequent menstruation Heavy periods Gestational diabetes Gestational hypertension Migraine depression Tension headache SUBJECTIVE: Pt is doing well and offers no complaints. SOCIAL HISTORY: Social History Tobacco Use Smoking status: Every Day Packs/day: 0.25 Years: 15.00 Additional pack years: 0.00 Total pack years: 3.75 Types: Cigarettes Passive exposure: Never Smokeless tobacco: Never Vaping Use Vaping Use: Never used Substance Use Topics Alcohol use: Not Currently Comment: Occasionally Drug use: No ALLERGIES Allergen Reactions Pollen Other: See Comments Headaches Current Outpatient Medications on File Prior to Visit Medication Sig insulin NPH (HUMULIN N NPH INSULIN KWIKPEN) 100 unit/mL (3 mL) injection pen Inject before 10 unitsbreakfast and at 14 units at bedtime. Subcutaneously insulin needles, DISPOSABLE, (PEN NEEDLE) 31 gauge x 5/16 1 Each once daily. blood sugar diagnostic test strip Use as directed to check glucose levels up to seven times daily. Lancets lancets Use as directed to check glucose levels up to seven times daily. ondansetron (ZOFRAN) 4 mg tablet Take 1 tablet by mouth every 8 hours as needed for nausea/vomiting. sertraline (ZOLOFT) 25 mg tablet Take 1 tablet by mouth once daily. [id number],crb-folic 30 mg iron- 1 mg tab Take by mouth. No current facility-administered medications on file prior to visit. OBJECTIVE: VITALS: BP 120/78 Wt 185 lb (83.9 kg) LMP 02/01/2023 BMI 31.26 kg/m HEENT: Normocephalic, atraumatic, Mucus membranes moist without lesions. SKIN: No lesions. CHEST: No increased resp effort. HEART: Regular rate. BACK: Nontender with no CVA tenderness. ABDOMEN: Soft, non-tender, non-distended, no masses, no hepatosplenomegaly. LOWER EXTREMITIES: There was no pitting edema, no palpable cords and no skin changes. ASSESSMENT: pre op, elective section per patient request PLAN: 1) Discussed r/b/a primary section in detail. Fetus now vertex on bedside ultrasound. Fetus was previously breech presentation for which the section was scheduled. She understands the recommendation is to try for a vaginal delivery. The patient requests to proceed with the scheduled section. The rationale for the proposed surgery was discussed in addition to risks, benefits, and alternatives. General pre- and post-operative care was reviewed. Questions were answered. After discussion, the patient indicated a desire to proceed with the planned surgery. Chris Law DO Medical Decision Making: Problems: Moderate: New problem with uncertain prognosis Risk: High: Decision on elective major surgery w/ risk factors Medical Decision Making Level: 4 - Moderate documented in this encounterDayton [facility] Center03-14-2024 Miscellaneous Notes* Quick Notes - Chris Law MD - 11/22/2023 2:35 PM EDT SW- No ctx, vb, lof. Good FM PE: Gen- NAD, well appearing Abd- Soft, gravid, NT See flowsheet A/p 37 wk gestation - A2GDM: She forgot BG log. She will send in a my chart message with her log. Scheduled for antepartum testing - Here for her pre op for her scheduled C/S - Bedside TAUS shows vertex presentation, and head feels engaged in pelvis on exam. Patient states she may still want an elective primary section. Discussed r/b/a section vs vaginal delivery. She says with her first vaginal delivery she had a vacuum assisted delivery, and she feels the delivery and course were traumatic for her. Discussed my recommendation would be for a vaginal delivery. Reviewed risks of surgery including but not limited to bleeding, need for a blood transfusion, infection, injury to surrounding structures. She understands the recommendation is not a primary section, but as long as she understands the risks with surgery if she requests an elective primary section we would proceed per her request. She understands the recommendation is for a vaginal delivery. She will go home and discuss this with her partner. Instructed her to call the office tomorrow with an update. Let nurses know as well to follow up with patient. Chris Law DO documented in this encounterDayton [facility] Center03-14-2024 Instructions* Patient Instructions* Latonia Laird MA - 11/22/2023 2:10 PM EDT SEQUENTIAL SCREENINGS [facility] offers sequential screenings for women who are interested in screenings for chromosomal abnormalities and certain defects during a . The sequential screen combinesultrasound and blood tests to determine the risk of chromosomal abnormalities, including Down's Syndrome (Trisomy 21) and Trisomy 18, as well as open neural tube defects including spina bifida. Ultrasound examination is performed between 11 weeks and 13 weeks gestational age. Blood tests are drawn after the ultrasound and again later in the between 15 and 21 weeks gestational age. Please let your physician know if you are interested in this testing. It will require an appointment withour electronic warfare technician. This is not an ultrasound performed by a physician in our office during a routine visit. SIGNS AND SYMPTOMS OF LABOR 1. Contractions every 10 minutes or more often 2. Clear, pink, or brownish fluid (water) leaking from vagina 3. Feeling that baby is pushing down, pressure 4. Low, dull backache 5. Cramps that feel like a period 6. Cramps with or without diarrhea If you notice any of the above symptoms, contact our office at [phone] and ask to speak with anurse. After hours, you can call doctors registry at [phone] OR call [facility] at [phone] ask to have the doctor web services professional paged. If you consider this an emergency, dial 05-11- or go to your nearest emergency department. NEED HELP? Are you dealing with a violent or abusive relationship? Are you a victim of rape or sexual assult? Call [facility] ([place]) 24 hour Crisis Hotline: 811.454.1404 or 634-287-4334. MANUAL Your Guide to a Healthy manual is now on-line. Visit [email or web address] to download your free copy documented in this encounterDayton Va Medical Center03-11-2024 Miscellaneous Notes* Quick Notes - Rebekah Bagley MD - 11/19/2023 3:28 PM EDT S: Shruti Ruvalcaba is a 33 year old female who presents at 12/07/2023, by Ultrasound for a routine visit. Denies headache, visual changes, chest pain, shortness of breath, vaginal bleeding, leakage of fluid, or dysuria. Feeling well, no complaints. O: See flow sheet Gen: No apparent distress Abd: Gravid, nontender ASSESSMENT/PLAN: 1. Insulin controlled gestational diabetes mellitus (GDM) in third trimester - ICD9: 648.83, ICD10:O24.414 (primary diagnosis) NST reactive. Log reviewed. Insulin adjusted last week - URINE OB DIP B/O 2. 37 weeks gestation of - ICD9: V22.2, ICD10: Z3A.37 - URINE OB DIP B/O 3. Encounter for supervision of high risk in third trimester, antepartum - ICD9: V23.9, ICD10: O09.93 - URINE OB DIP B/O 4. Breech presentation with problem, single or unspecified fetus - ICD9: 652.23, ICD10: O32.1XX0 Planned primary c/s for breech on 11/29 - URINE OB DIP B/O Rebekah Bagley MD documented in this encounterDayton [facility] Center03-11-2024 Instructions* Patient Instructions* Latonia Laird MA - 11/19/2023 2:28 PM EDT SEQUENTIAL SCREENINGS [facility] offers sequential screenings for women who are interested in screenings for chromosomal abnormalities and certain defects during a . The sequential screen combinesultrasound and blood tests to determine the risk of chromosomal abnormalities, including Down's Syndrome (Trisomy 21) and Trisomy 18, as well as open neural tube defects including spina bifida. Ultrasound examination is performed between 11 weeks and 13 weeks gestational age. Blood tests are drawn after the ultrasound and again later in the between 15 and 21 weeks gestational age. Please let your physician know if you are interested in this testing. It will require an appointment withour electronic warfare technician. This is not an ultrasound performed by a physician in our office during a routine visit. SIGNS AND SYMPTOMS OF LABOR 1. Contractions every 10 minutes or more often 2. Clear, pink, or brownish fluid (water) leaking from vagina 3. Feeling that baby is pushing down, pressure 4. Low, dull backache 5. Cramps that feel like a period 6. Cramps with or without diarrhea If you notice any of the above symptoms, contact our office at [phone] and ask to speak with anurse. After hours, you can call doctors registry at [phone] OR call [facility] at [phone] ask to have the doctor web services professional paged. If you consider this an emergency, dial 9--1 or go to your nearest emergency department. NEED HELP? Are you dealing with a violent or abusive relationship? Are you a victim of rape or sexual assult? Call [facility] ([place]) 24 hour Crisis Hotline: 235.340.2933 or 260-924-7827. MANUAL Your Guide to a Healthy manual is now on-line. Visit [email or web address] to download your free copy documented in this encounterDayton Va Medical Center02-27-2024 History of Present illness Narrative* Alana Nava MD - 11/06/2023 3:58 PM EST NST SUMMARY PROVIDER ASSESSMENT AND INTERPRETATION Shruti Ruvalcaba is a 33 year old female, , who is at 35w4d with an ANDRY of 12/07/2023, by Ultrasound dating method. Indications for NST: Gestational Diabetes - Insulin Controlled, single umbilical arteery Baseline: 125 Variability: Moderate Accelerations: Present 15 X 15 Decelerations: None Contractions: TOCO: None Interpretation: Category I and Reactive SIGNATURE: Alana Nava MD documented in this encounterDayton Va Medical Center02-27-2024 Miscellaneous Notes* Quick Notes - Alana Nava MD - 11/06/2023 3:51 PM EST RR- VB No. LOF No. CTXS No. Movement: present. Other c/o: denies COBOS or visual changes Medication list reviewed. Physical Exam See Flow Sheet Abd: soft, nontender, gravid Ext: edema: 1+, symetrical: Yes, DTRS: 2+ left groin- small 1.5 cm area of folliculitis, no necrotic area A/P 35w4d Estimated Date of Delivery: 12/07/23 Labs: GBS done GDMA2- BS log reviewed, cont antepartum testing, cont. current insulin, recently adjusted. Growth scans ordered NST reactive today folliculitis left mons/groin- keflex and local care, call if worsens BP stable, no signs/symptoms of preeclampsia single umbilical a- cont. growth scans, kick counts and antepartum testing Alana Nava M.D. documented in this encounterDayton Va Medical Center02-27-2024 Instructions* Patient Instructions* Isabella Sotelo Ma - 11/06/2023 2:54 PM EST SEQUENTIAL SCREENINGS [facility] offers sequential screenings for women who are interested in screenings for chromosomal abnormalities and certain defects during a . The sequential screen combinesultrasound and blood tests to determine the risk of chromosomal abnormalities, including Down's Syndrome (Trisomy 21) and Trisomy 18, as well as open neural tube defects including spina bifida. Ultrasound examination is performed between 11 weeks and 13 weeks gestational age. Blood tests are drawn after the ultrasound and again later in the between 15 and 21 weeks gestational age. Please let your physician know if you are interested in this testing. It will require an appointment withour electronic warfare technician. This is not an ultrasound performed by a physician in our office during a routine visit. SIGNS AND SYMPTOMS OF LABOR 1. Contractions every 10 minutes or more often 2. Clear, pink, or brownish fluid (water) leaking from vagina 3. Feeling that baby is pushing down, pressure 4. Low, dull backache 5. Cramps that feel like a period 6. Cramps with or without diarrhea If you notice any of the above symptoms, contact our office at [phone] and ask to speak with anurse. After hours, you can call doctors registry at [phone] OR call [facility] at [phone] ask to have the doctor web services professional paged. If you consider this an emergency, dial 7-1-3 or go to your nearest emergency department. NEED HELP? Are you dealing with a violent or abusive relationship? Are you a victim of rape or sexual assult? Call [facility] ([place]) 24 hour Crisis Hotline: 204.616.2493 or 205-217-8018. MANUAL Your Guide to a Healthy manual is now on-line. Visit [email or web address] to download your free copy documented in this encounterDayton Va Medical Center02-22-2024 Miscellaneous Notes* Quick Notes - Annika Lehman MD - 11/01/2023 2:49 PM EST KJ - VB No. LOF No. CTXS No. Movement: present. Other c/o: No. Medication list reviewed. Physical Exam See Flow Sheet Gen: no accute distress, well appearing Abd: soft, nontender, gravid A/P 34w6d Estimated Date of Delivery: 12/07/23 GDM - PPBS overall well controlled. Increased bedtime NPH to 14 units. Single umbilical artery - growth US scheduled Continue testing PTL precautions reviewed, Kick counts reviewed. Annika Lehman MD documented in this encounterDayton Va Medical Center02-22-2024 History of Present illness Narrative* Annika Lehman MD - 11/01/2023 2:48 PM EST NST SUMMARY PROVIDER ASSESSMENT AND INTERPRETATION Shruti Ruvalcaba is a 33 year old female, , who is at 34w6d with an ANDRY of 12/07/2023, by Ultrasound dating method. Indications for NST: Gestational Diabetes - Insulin Controlled Baseline: 130 Variability: Moderate Accelerations: Present 15 X 15 Decelerations: Variable Contractions: TOCO: None Interpretation: Reactive SIGNATURE: Annika Lehman MD documented in this encounterDayton Va Medical Center02-22-2024 Instructions* Patient Instructions* Isabella Sotelo Ma - 11/01/2023 2:02 PM EST SEQUENTIAL SCREENINGS [facility] offers sequential screenings for women who are interested in screenings for chromosomal abnormalities and certain defects during a . The sequential screen combinesultrasound and blood tests to determine the risk of chromosomal abnormalities, including Down's Syndrome (Trisomy 21) and Trisomy 18, as well as open neural tube defects including spina bifida. Ultrasound examination is performed between 11 weeks and 13 weeks gestational age. Blood tests are drawn after the ultrasound and again later in the between 15 and 21 weeks gestational age. Please let your physician know if you are interested in this testing. It will require an appointment withour electronic warfare technician. This is not an ultrasound performed by a physician in our office during a routine visit. SIGNS AND SYMPTOMS OF LABOR 1. Contractions every 10 minutes or more often 2. Clear, pink, or brownish fluid (water) leaking from vagina 3. Feeling that baby is pushing down, pressure 4. Low, dull backache 5. Cramps that feel like a period 6. Cramps with or without diarrhea If you notice any of the above symptoms, contact our office at [phone] and ask to speak with anurse. After hours, you can call doctors registry at [phone] OR call [facility] at [phone] ask to have the doctor web services professional paged. If you consider this an emergency, dial 9-1-7 or go to your nearest emergency department. NEED HELP? Are you dealing with a violent or abusive relationship? Are you a victim of rape or sexual assult? Call [facility] ([place]) 24 hour Crisis Hotline: 852.268.6333 or 933-801-1548. MANUAL Your Guide to a Healthy manual is now on-line. Visit [email or web address] to download your free copy documented in this encounterDayton Va Medical Center02-19-2024 Miscellaneous Notes* Telephone Encounter - Rebekah Weinberg RN - 10/29/2023 1:38 PM EST Patient notified. Rebekah Weinberg RN * Telephone Encounter - Chris Law MD - 10/29/2023 12:52 PM EST Recommend 10 units NPH at bedtime since both fasting BG's elevated. To review further with KJ once we have more values this week at appointment thanks * Telephone Encounter - Salome Aviles RN - 10/29/2023 12:16 PM EST Patient called in to report weekend BS per KJ. Dr. Lehman prescribed insulin 10/26 patient did not start it until Sunday night because she didn't have the needles. Prescription reads 10 units NPH before breakfast and at bedtime but patient reported that she told her to do 8 units and that is what she did beginning Sunday night. Sun 10/28 fast-108 Sun breakfast-110 Sun lunch-missed Sun dinner-159 Sunday fast-103 Breakfast-114. Salome Aviles, RN documented in this encounterDayton Va Medical Center02-19-2024 Instructions* Patient Instructions* Angelika Andrews, RD - 10/29/2023 1:25 PM EST Nutrition Intervention 10/29/2023: modify type and amount of food or beverage Goals: Fasting glucose <95 mg/dL; 1 hr glucose ,140 mg/dL, 2 hr glucose ,120 mg/dL; mean glucoseof 86 mg/dL. 1. Distribute carbohydrate evening throught out the day, Choose whole grain starches and grains, avoid white and refined grains and sources of concentration sugars . Carbohydrates are the starches, fruits and milk group and is defined as 15 grams per serving/choice. Use beans and lentils for protein: good sources of protein and fiber and are low glycemic index 2. Keep breakfast at 15-30 grams carbohydrate; meals 30-45 grams and snacks 15- grams of carbohydrate, include healthy protein in meals and snacks. 3. Distribute meals and snacks every 2-3 hours. 4. Aim for 28 grams of fiber. 5. Limit saturated fat, choose lean proteins, healthy fast such as olive oil, canola oil, avocados,nuts/seeds, etc. 6. . Include an evening snack of one carb choice/15 grams and protein Daily exercise of 30-60 minutes; if needed a short walk after meals can help keep post meal blood sugars down Ensure good sources of magnesium from a variety of seeds and dark greens such as spinach and botswanan chard; soybeans and nuts almonds and chashews. Ensure good sources of zinc from lean beef, pumpkin and squash seeds, dark chocolate and cocoa powder, and peanuts Ensure good sources of Folic Acid from a variety of dark greens and seeds; soy beans and singh sprouts. Beans such as Pena, garbonzo and mung; asparagus and peanuts Ensure adequate vit D-fatty fish, fortified cereal and soy products, meats, dairy products, eggs and mushrooms Ensure adequate V81-bsqv fatty fish, seafood and meats; cheese and eggs Ensure adequate sources of omega 3 fatty acids from fatty fish, will and flax seeds and eggs Ensure adequate calcium-aim for 3-4 servings of low fat/fat free dairy daily. Aim for moderate exercise regularly-continue to do regular activities. May need to change activities during avoiding high impact and higher stress activities. documented in this encounterDayton Va Medical Center02-19-2024 History of Present illness Narrative* Angelika Andrews RD - 10/29/2023 12:59 PM EST [facility] Nutrition Therapy: Virtual Consult - Initial Assessment I have communicated my name and active licensure. The patient s identity and physical location wereverified at the time of this visit. Either the patient or their legal shipping services sales representative has been informed of the risks and benefits of -- and alternatives to -- treatment through a remote evaluation andconsents to proceed with the evaluation remotely. Nutrition Diagnosis: Altered nutrition-related lab values, related to, and endocrine dysfuctnion, as evidenced by elevated blood sugars now on inulin . RECOMMENDED MALNUTRITION DIAGNOSIS: NO MALNUTRITION IDENTIFIED NUTRITION CARE PLAN Nutrition Intervention 10/29/2023: modify type and amount of food or beverage Goals: Fasting glucose <95 mg/dL; 1 hr glucose ,140 mg/dL, 2 hr glucose ,120 mg/dL; mean glucoseof 86 mg/dL. 1. Distribute carbohydrate evening throught out the day, Choose whole grain starches and grains, avoid white and refined grains and sources of concentration sugars . Carbohydrates are the starches, fruits and milk group and is defined as 15 grams per serving/choice. Use beans and lentils for protein: good sources of protein and fiber and are low glycemic index 2. Keep breakfast at 15-30 grams carbohydrate; meals 30-45 grams and snacks 15- grams of carbohydrate, include healthy protein in meals and snacks. 3. Distribute meals and snacks every 2-3 hours. 4. Aim for 28 grams of fiber. 5. Limit saturated fat, choose lean proteins, healthy fast such as olive oil, canola oil, avocados,nuts/seeds, etc. 6. . Include an evening snack of one carb choice/15 grams and protein Daily exercise of 30-60 minutes; if needed a short walk after meals can help keep post meal blood sugars down Ensure good sources of magnesium from a variety of seeds and dark greens such as spinach and botswanan chard; soybeans and nuts almonds and chashews. Ensure good sources of zinc from lean beef, pumpkin and squash seeds, dark chocolate and cocoa powder, and peanuts Ensure good sources of Folic Acid from a variety of dark greens and seeds; soy beans and singh sprouts. Beans such as Pena, garbonzo and mung; asparagus and peanuts Ensure adequate vit D-fatty fish, fortified cereal and soy products, meats, dairy products, eggs and mushrooms Ensure adequate I21-mdvf fatty fish, seafood and meats; cheese and eggs Ensure adequate sources of omega 3 fatty acids from fatty fish, will and flax seeds and eggs Ensure adequate calcium-aim for 3-4 servings of low fat/fat free dairy daily. Aim for moderate exercise regularly-continue to do regular activities. May need to change activities during avoiding high impact and higher stress activities. Nutrition Monitoring & Evaluation: blood sugars in target range Need for Follow up: 3 weeks or as needed Patient presents for initial MNT as relates to gestational diabetes now at 34.5 weeks. This is second and second time with gestational diabetes. Just started insulin NPH morning and evening. Intake noted for eating usually three meals, no snacks. Long period between dinner meal and breakfast of 12+ hours . Choosing keto and lower carb foods, carb intake less than recommended. Beverages appropriate in type and amount. Patient's symptoms are: elevated blood sugars Diet History: wake 9:30-10 100-110 Breakfast - ~10- keto pancakes or waffles, mini bagel; with keto yogurt; water One hour 110-120 Snack - no 130 1:30-2-Lunch - snack; cheese, double noodle soup (was high) , handful nuts. Protein bar; salads; occ protein smoothie from [employer], sprite zero 130 Snack - not usually Dinner - pizza, chicken sandwiches, pasta, this week Hello Fresh meals ;chicken, steak, pork chop, carrots 110 Snack - no Beverages - water, diet sprite, coke zero Alcohol- no Vitamins/Supplements - To bed: by 11 Activity: Activities of Daily Living: varies Additional Activity: Sedentary (Little or no exercise: <1x/week) Active at home and in the barn Yoga at night Anthropometrics: Height: Last 1 Encounter Ht Readings: Date: Ht: 10/29/2023 163.8 cm (5' 4.5) Weight: Last 1 Encounter Wt Readings: Date: Wt: 10/29/2023 83.9 kg (185 lb) Body mass index is 31.26 kg/m . Resting Metabolic Rate: 1543 Malnutrition Screening Significant unintentional weight loss? No Eating less than 75% of usual intake for more than 2 weeks? No Potential Signs of Inflammation: no identifiable sources Education Materials Provided: Healthy You - Planning Healthy Meals; Healthy You Diabetes and READINESS TO LEARN Cognitive ability: Alert and oriented Motivation to learn: Interested Family support: Unable to assess - Family not present Instruction provided to: Patient Patient learns best by: Individual Instruction Factors affecting learning: None Physical limitations affecting learning: None Referred by: Annika ROMERO Billing Type: Initial Assess/15 min 2 units SIGNATURE: Angelika Andrews RD PATIENT NAME: Shruti Ruvalcaba DATE: 10/29/2023 TIME: 1:05 PM [facility] History of Present illness Narrative* Annika Lehman MD - 10/26/2023 1:03 PM EST NST SUMMARY PROVIDER ASSESSMENT AND INTERPRETATION Shruti Ruvalcaba is a 33 year old female, , who is at 34w0d with an ANDRY of 12/07/2023, by Ultrasound dating method. Indications for NST: Gestational Diabetes - Insulin Controlled Baseline: 130 Variability: Moderate Accelerations: Present 15 X 15 Decelerations: Variable Contractions: TOCO: None Interpretation: Reactive SIGNATURE: Annika Lehman MD documented in this encounterDay[facility]02-16-2024 Miscellaneous Notes* Quick Notes - Annika Lehman MD - 10/26/2023 10:26 AM EST KJ - VB No. LOF No. CTXS No. Movement: present. Other c/o: No. Medication list reviewed. Physical Exam See Flow Sheet Gen: no accute distress, well appearing Abd: soft, nontender, gravid A/P 34w0d Estimated Date of Delivery: 12/07/23 GDM - BS log reviewed and FBS & PP lunch are elevated. Other PP are mildly elevated but meetingwith loading unit operator seating Sunday. Will start bid NPH. Needs weekly testing. Single umbilical artery - schedule growth US PTL precautions reviewed, Kick counts reviewed. Annika Lehman MD documented in this encounterDay[facility]02-16-2024 Instructions* Patient Instructions* Carloina Cunha LPN - 10/26/2023 10:16 AM EST SEQUENTIAL SCREENINGS [facility] offers sequential screenings for women who are interested in screenings for chromosomal abnormalities and certain defects during a . The sequential screen combinesultrasound and blood tests to determine the risk of chromosomal abnormalities, including Down's Syndrome (Trisomy 21) and Trisomy 18, as well as open neural tube defects including spina bifida. Ultrasound examination is performed between 11 weeks and 13 weeks gestational age. Blood tests are drawn after the ultrasound and again later in the between 15 and 21 weeks gestational age. Please let your physician know if you are interested in this testing. It will require an appointment withour electronic warfare technician. This is not an ultrasound performed by a physician in our office during a routine visit. SIGNS AND SYMPTOMS OF LABOR 1. Contractions every 10 minutes or more often 2. Clear, pink, or brownish fluid (water) leaking from vagina 3. Feeling that baby is pushing down, pressure 4. Low, dull backache 5. Cramps that feel like a period 6. Cramps with or without diarrhea If you notice any of the above symptoms, contact our office at [phone] and ask to speak with anurse. After hours, you can call doctors registry at [phone] OR call [facility] at [phone] ask to have the doctor web services professional paged. If you consider this an emergency, dial 9--4 or go to your nearest emergency department. NEED HELP? Are you dealing with a violent or abusive relationship? Are you a victim of rape or sexual assult? Call [facility] ([place]) 24 hour Crisis Hotline: 779.634.6226 or 609-928-5161. MANUAL Your Guide to a Healthy manual is now on-line. Visit [email or web address] to download your free copy documented in this encounterDayton [facility] Center02-08-2024 Miscellaneous Notes* Telephone Encounter - Rebekah Weinberg, PARAMJIT - 10/18/2023 10:46 AM EST Patient notified. Rescheduled OB visit next week with ANNA. Patient changed her mind and would like to meet with the loading unit operator seating. Appointment scheduled for 10/29. Rebekah Weinberg RN * Telephone Encounter - Chris Law MD - 10/18/2023 10:37 AM EST Ok will re assess next week after she meets with senior actuarial analyst and changes her diet over the next week. If still elevated will need to start NPH at that time. If there is an opening please see ifshe can see physician next week thanks * Telephone Encounter - Hanh Ward RN - 10/18/2023 9:43 AM EST 32w6d Calling in with her blood sugar readings for the past week. This was first patient started testing.She just ordered groceries with better food choices today for the first time. Didn't have time to grocery shop before now. Plans to eat better from now on than she did this past week. Next visit withCP 10/25/23. She does see senior actuarial analyst 10/22/23 too and declined loading unit operator seating. States she recently met with loading unit operator seating with son and is aware of what she needs to eat. Said she'll meet with her if provider feels she really needs to later on. DATE 10/11/23 10/12/23 10/13/23 10/14/23 10/15/23 10/16/23 10/17/23 Fasting 111 103 88 109 113 112 117 Post Meal #1 174 212 147 105 Post Meal # 2 104 109 110 112 112 110 Post Meal # 3 134 157 127 109 147 115 135 Hanh Ward RN documented in this encounterDay[facility]02-01-2024 Miscellaneous Notes* Telephone Encounter - Rebekah Weinberg RN - 10/11/2023 8:52 AM EST See 10/09/23 office note. Supplies ordered. Patient declined teaching. Rebekah Weinberg RN * Telephone Encounter - Rebekah Weinberg RN - 10/11/2023 8:50 AM EST ----- Message from Mayelin Villalba APRN.CNM sent at 10/10/2023 7:40 PM EST ----- Please notify patient that 3 hour glucose tolerance test came back abnormal. Please order supplies as well as set up appointment with loading unit operator seating. Mayelin Villalba APRN.CNM documented in this encounterDayton [facility] Center12-15-2023 Miscellaneous Notes* Quick Notes - Mayelin Villalba APRN.CNM - 08/24/2023 3:24 PM EST Shruti Ruvalcaba is a 33 year old female who presents at 25w0d for a routine visit. Nausea resolvedand appetite improving. Continues to have headaches but only had 1 migraine in the past couple of weeks. Headaches resolve with Tylenol. Denies visual changes, chest pain, shortness of breath, vaginal bleeding, leakage of fluid, or dysuria. Feeling well, no complaints. Size equal to dates. 15 lbs TWG. ASSESSMENT/PLAN: 1. 25 weeks gestation of - ICD9: V22.2, ICD10: Z3A.25 (primary diagnosis) 2. History of gestational hypertension - ICD9: V13.29, ICD10: Z87.59 3. with care elsewhere, antepartum - ICD9: V22.1, ICD10: Z34.90 4. Single umbilical artery - ICD9: 747.5, ICD10: Q27.0 5. History of gestational diabetes in prior , currently - ICD9: V23.49, ICD10: O09.299, Z86.32 RTC in 3 weeks for LUBNA with GCT. Mayelin Villalba APRN.CNM documented in this encounterDayton [facility] Center12-15-2023 Instructions* Patient Instructions* Latonia Laird MA - 08/24/2023 3:03 PM EST SEQUENTIAL SCREENINGS The [facility] offers sequential screenings for women who are interested in screenings for chromosomal abnormalities and certain defects during a . The sequential screen combinesultrasound and blood tests to determine the risk of chromosomal abnormalities, including Down's Syndrome (Trisomy 21) and Trisomy 18, as well as open neural tube defects including spina bifida. Ultrasound examination is performed between 11 weeks and 13 weeks gestational age. Blood tests are drawn after the ultrasound and again later in the between 15 and 21 weeks gestational age. Please let your physician know if you are interested in this testing. It will require an appointment withour electronic warfare technician. This is not an ultrasound performed by a physician in our office during a routine visit. SIGNS AND SYMPTOMS OF LABOR 1. Contractions every 10 minutes or more often 2. Clear, pink, or brownish fluid (water) leaking from vagina 3. Feeling that baby is pushing down, pressure 4. Low, dull backache 5. Cramps that feel like a period 6. Cramps with or without diarrhea If you notice any of the above symptoms, contact our office at [phone] and ask to speak with anurse. After hours, you can call doctors registry at [phone] OR call [facility] at [phone] ask to have the doctor web services professional paged. If you consider this an emergency, dial 91-5 or go to your nearest emergency department. NEED HELP? Are you dealing with a violent or abusive relationship? Are you a victim of rape or sexual assult? Call [facility] ([place]) 24 hour Crisis Hotline: 901.444.4502 or 443-386-3539. MANUAL Your Guide to a Healthy manual is now on-line. Visit [email or web address] to download your free copy documented in this encounterDayton [facility] Medical Center12-08-2023 Miscellaneous Notes* Telephone Encounter - Hanh Ward RN - 08/17/2023 9:59 AM EST Received a call from jeff Bernstein's ancillary services manager therapy from [facility]. Phone number [phone]. Wanted to let office know she is available to help patient if any needs arise. Hanh Ward RN documented in this encounterDayton Va Medical Center11-17-2023 Miscellaneous Notes* Quick Notes - Alana Nava MD - 07/27/2023 4:36 PM EST RR- VB No. LOF No. CTXS No. Movement: present. Other c/o: still w/ a lot of nausea, hard to eat Medication list reviewed. Physical Exam See Flow Sheet Abd: soft, nontender, gravid Ext: edema: no A/P 21w0d Estimated Date of Delivery: 12/07/23 Single umbilical artery on US. Reviewed w/ patient. Wait for final report. Growth scan 32 weeks cont. PNV BP normal, not on meds . nasuea- trial zofran, reglan makes her tired and doesn't feel it works well Alana Nava M.D. documented in this encounterDayton Va Medical Center11-17-2023 Instructions* Patient Instructions* Priscilla Thomposn Ma - 07/27/2023 2:39 PM EST SEQUENTIAL SCREENINGS The [facility] offers sequential screenings for women who are interested in screenings for chromosomal abnormalities and certain defects during a . The sequential screen combinesultrasound and blood tests to determine the risk of chromosomal abnormalities, including Down's Syndrome (Trisomy 21) and Trisomy 18, as well as open neural tube defects including spina bifida. Ultrasound examination is performed between 11 weeks and 13 weeks gestational age. Blood tests are drawn after the ultrasound and again later in the between 15 and 21 weeks gestational age. Please let your physician know if you are interested in this testing. It will require an appointment withour electronic warfare technician. This is not an ultrasound performed by a physician in our office during a routine visit. SIGNS AND SYMPTOMS OF LABOR 1. Contractions every 10 minutes or more often 2. Clear, pink, or brownish fluid (water) leaking from vagina 3. Feeling that baby is pushing down, pressure 4. Low, dull backache 5. Cramps that feel like a period 6. Cramps with or without diarrhea If you notice any of the above symptoms, contact our office at [phone] and ask to speak with anurse. After hours, you can call doctors registry at [phone] OR call [facility] at [phone] ask to have the doctor web services professional paged. If you consider this an emergency, dial 9-0-3 or go to your nearest emergency department. NEED HELP? Are you dealing with a violent or abusive relationship? Are you a victim of rape or sexual assult? Call [facility] ([place]) 24 hour Crisis Hotline: 526.770.9553 or 788-524-0599. MANUAL Your Guide to a Healthy manual is now on-line. Visit [email or web address] to download your free copy documented in this encounterDayton [facility] Medical Center10-20-2023 Miscellaneous Notes* Quick Notes - Manjula Beltre MD - 06/29/2023 4:40 PM EDT DM- Pt doing well today. Denies Vaginal Bleeding, Leaking fluid, or contractions. Pt reports good movement. Having headaches- every night still with nausea and occasional vomiting- sometimes tylenol helps. Declines flu vaccine. Will do trial of reglan. RTO 4 wks. Will need to schedule anatomyus. Manjula Delgado MD documented in this encounterDayton [facility] Medical Center10-20-2023 Instructions* Patient Instructions* Isabella Sotelo Ma - 06/29/2023 4:17 PM EDT SEQUENTIAL SCREENINGS The [facility] offers sequential screenings for women who are interested in screenings for chromosomal abnormalities and certain defects during a . The sequential screen combinesultrasound and blood tests to determine the risk of chromosomal abnormalities, including Down's Syndrome (Trisomy 21) and Trisomy 18, as well as open neural tube defects including spina bifida. Ultrasound examination is performed between 11 weeks and 13 weeks gestational age. Blood tests are drawn after the ultrasound and again later in the between 15 and 21 weeks gestational age. Please let your physician know if you are interested in this testing. It will require an appointment withour electronic warfare technician. This is not an ultrasound performed by a physician in our office during a routine visit. SIGNS AND SYMPTOMS OF LABOR 1. Contractions every 10 minutes or more often 2. Clear, pink, or brownish fluid (water) leaking from vagina 3. Feeling that baby is pushing down, pressure 4. Low, dull backache 5. Cramps that feel like a period 6. Cramps with or without diarrhea If you notice any of the above symptoms, contact our office at [phone] and ask to speak with anurse. After hours, you can call [employer] registry at [phone] OR call [facility] at [phone] ask to have the doctor web services professional paged. If you consider this an emergency, dial 9-1-4 or go to your nearest emergency department. NEED HELP? Are you dealing with a violent or abusive relationship? Are you a victim of rape or sexual assult? Call [facility] ([place]) 24 hour Crisis Hotline: 962.489.2287 or 789-815-1693. MANUAL Your Guide to a Healthy manual is now on-line. Visit [email or web address] to download your free copy documented in this encounterDayton Va Medical Center09-21-2023 Miscellaneous Notes* Quick Notes - Alana Nava MD - 05/31/2023 3:56 PM EDT RR- VB No. LOF No. CTXS No. Movement: present. Other c/o: No. Medication list reviewed. Physical Exam See Flow Sheet Abd: soft, nontender, gravid A/P 12w6d Estimated Date of Delivery: 12/07/23 Labs: baseline preeclamsia labs, hgb a1 c d/w her aneuploidy screning, desires NIPT anatomy US ordered declines flu vaccine today physical therapy ordered for sciatica. Alana Nava M.D. documented in this encounterDayton Va Medical Center09-21-2023 Instructions* Patient Instructions* Priscilla Thompson Ma - 05/31/2023 3:28 PM EDT SEQUENTIAL SCREENINGS The [facility] offers sequential screenings for women who are interested in screenings for chromosomal abnormalities and certain defects during a . The sequential screen combinesultrasound and blood tests to determine the risk of chromosomal abnormalities, including Down's Syndrome (Trisomy 21) and Trisomy 18, as well as open neural tube defects including spina bifida. Ultrasound examination is performed between 11 weeks and 13 weeks gestational age. Blood tests are drawn after the ultrasound and again later in the between 15 and 21 weeks gestational age. Please let your physician know if you are interested in this testing. It will require an appointment withour electronic warfare technician. This is not an ultrasound performed by a physician in our office during a routine visit. SIGNS AND SYMPTOMS OF LABOR 1. Contractions every 10 minutes or more often 2. Clear, pink, or brownish fluid (water) leaking from vagina 3. Feeling that baby is pushing down, pressure 4. Low, dull backache 5. Cramps that feel like a period 6. Cramps with or without diarrhea If you notice any of the above symptoms, contact our office at [phone] and ask to speak with anurse. After hours, you can call doctors registry at [phone] OR call [facility] at [phone] ask to have the doctor web services professional paged. If you consider this an emergency, dial 7-5-2 or go to your nearest emergency department. NEED HELP? Are you dealing with a violent or abusive relationship? Are you a victim of rape or sexual assult? Call [facility] ([place]) 24 hour Crisis Hotline: 382.886.1918 or 599-552-0223. MANUAL Your Guide to a Healthy manual is now on-line. Visit [email or web address] to download your free copy documented in this encounterDayton Va Medical Center09-06-2023 History of Present illness Narrative* Maranda Engle APRN.HYDRATE CONTROL TENDER - 05/16/2023 1:14 PM EDT I INITIAL OB ASSESSMENT OB Provider: Bernadette Li RN HPI: Shruti is a 32 year old White here to establish Obstetrical Care. Patient's last menstrualperiod was 02/01/2023. from OB Dating Form. Cycles regular was planned Complaints: vaginal bleeding that happened 04/29/2023-lasted 2 days OB History T1 L1 SAB0 IAB0 Ectopic0 Multiple0 Live Births1 # 1 - Date: 12/27/21, Sex: Male, Weight: 5 lb 15 oz (2.693 kg), GA: 37w0d, Delivery: Vaginal, Spontaneous, Apgar1: None, Apgar5: None, Living: Living, Comments: Induced-getational DM,chronic HTN # 2 - Date: None, Sex: None, Weight: None, GA: None, Delivery: None, Apgar1: None, Apgar5: None, Living: None, Comments: None Patient's Risk Screening for delivery: Have you had a prior downs between 20w and 36w6d?: No MEDICAL/PSYCHOSOCIAL HISTORY: History of hemorrhage or bleeding concerns: No Thyroid Disease: No History of chronic hypertension: Yes History of pre-existing diabetes: No No results found for: ABORHD No weight on file for this encounter. History of abnormal pap: Yes Prior treatment for cervical dysplasia: colposcopies with biopsies in [facility]. History of STDs: HPV Tobacco use: Yes Caffeine use: Yes 1 Cola every other day Drug use: No Alcohol use: No Multivitamin with Folic acid: Yes Latter-Day or heritage: No Would refuse blood transfusion if medically necessary: No Are you currently employed? 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 I don't have enough money to pay my bills: Never Within the past 12 months, have you worried that your food would run out before you had money to buy more: Never In the past 12 months, has lack of reliable transportation kept you from going to medical appointments or work, or from keeping things needed for daily living: Never In the past 12 months, have you had any concerns about having a place to live, or about the condition or quality of your housing: Never Are there any cultural or spiritual needs we should be aware of: No Depression: denies symptoms of depression. OB Depression and Anxiety Screening- This Encounter (since 05/08/2023) Over the past 2 weeks have you felt down, depressed, or hopeless? Positive - Further Testing Indicated Over the past two weeks, have you felt little interest or pleasure in doing things? Positive - Further Testing Indicated I have been able to laugh and see the funny side of things. As much as I always could I have looked forward with enjoyment to things. As much as I ever did I have blamed myself unnecessarily when things went wrong. Yes, some of the time I have been anxious or worried for no good reason. Yes, sometimes I have felt scared or panicky for no good reason. No, not at all Things have been getting on top of me. Yes, sometimes I haven't been coping as well as usual I have been so unhappy that I have had difficulty sleeping. Yes, sometimes I have felt sad or miserable. Not very often I have been so unhappy that I have been crying. Only occasionally The thought of harming myself has occurred to me. 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 Gender: Male History of STDs: HPV PAST MEDICAL HISTORY PAST MEDICAL HISTORY Diagnosis Date anxiety/depression ASCUS with positive high risk HPV cervical Atypical glandular cells of undetermined significance (J LUIS) on cervical Pap smear 01/24/2022 [place] HPV+ Breast disorder Complication of anesthesia Dysmenorrhea Excessive or frequent menstruation Heavy periods Gestational diabetes Gestational hypertension Migraine depression Tension headache PAST SURGICAL HISTORY PAST SURGICAL HISTORY Procedure Laterality Date EXTRACTION ERUPTED TOOTH wisdom teeth PAST SURGICAL HISTORY OF Left ACL VAGINOSCOPY CURRENT MEDICATIONS Current Outpatient Medications Medication Sig Dispense Refill [id number] 30 mg iron- 1 mg tab Take by mouth. promethazine (PHENERGAN) 12.5 mg tablet Take 1 tablet by mouth every 6 hours as needed. 15 tablet 1 ALPRAZolam (XANAX) 0.25 mg tablet (Patient not taking: Reported on 04/25/2023) Norethindrone Acet-Ethinyl Est 1-20 mg-mcg per tablet Take by mouth q 24 HR. (Patient not taking: Reported on 04/25/2023) sertraline (ZOLOFT) 25 mg tablet Take 1 tablet by mouth once daily. (Patient not taking: Reported on 05/09/2023) 90 tablet 3 RIZATRIPTAN BENZOATE (MAXALT ORAL) Take by mouth. (Patient not taking: Reported on 04/25/2023) No current facility-administered medications for this visit. Allergies As of Date: 05/09/2023 Allergen Noted Reaction POLLEN 07/08/2014 Other: See Comments Fully Assessed 05/09/2023 Does patient have penicillin allergy: No REVIEW OF SYSTEMS: GENERAL: Negative for: Fever or Chills HEENT: Negative for: Headache, Impaired Vision, Ringing in Ears, Nosebleeds NECK: Negative for: Swelling, Pain, Stiffness RESPIRATORY: Negative for: Cough, Shortness of breath, Wheezing GASTROINTESTINAL: Negative for: Heartburn, Constipation, Diarrhea, Blood in stool, + Vomiting - treated with promethazine per PCP which is somewhat effective. MUSCULOSKELETAL: Negative for: Muscle or joint pain, stiffness, Joint swelling NEUROLOGIC/PSYCHIATRIC: Negative for: Weakness, Paralysis, Numbness, Tingling, Tremor, Memory loss.Positive - anxiety and depression SKIN: Negative for: Rash, Itching GENITOURINARY: Negative for: vaginal itching, vaginal discharge, hematuria or dysuria PHYSICAL EXAM: BP 120/80 Ht 5' 4.5 (1.64m) Wt 169 lb (76.7kg) LMP 02/01/2023 BMI 28.57 kg/(m^2). GENERAL: pleasant in no apparent distress DERMATOLOGY: Normal, without lesions, non-icteric, and non-hirsute NECK: Supple, full range of motion, no adenopathy, and thyroid normal CHEST: Normal inspiratory effort NEURO: alert and oriented x3,exam grossly non-focal Clinical Pelvimetry: Pelvimetry clinically assessed as adequate Limited OB ultrasound exam: 04/29/2023 US at [place], reviewed by Skyler Villalba CNM. Single live IUP at 8weks with positive cardiac activity FHT 161 bpm. No suspicious findings. POCUS not done today OB Risk Screening: Completed, no positive findings documented. ASSESSMENT: 32 year old at 10w5d wks gestational age PLAN: 1) Patient oriented to practice. Patient given new OB orientation folder. Discussed nutrition, folic acid supplementation, dietary guidelines, exercise, smoking, alcohol, caffeine, and drug use. Discussed gestational weight gain guidelines. Discussed routine OB labs including STD/HIV. Discussed how to access Your guide to a health and the [employer]. Discussed aneuploidy and carrier screening. Regarding aneuploidy screening, nuchal translucency/first trimester early anatomy ultrasound and NIPT were discussed. Regarding carrier screening, the myriad screen was discussed. The risks/benefits and limitations of NIPT/aneuploidy screening were reviewed including the potential for false negative and false positive results. We discussed the availability of professional-society guided carrier screening and reviewed the conditions screened and limitations of screening. The availability of genetic counseling was reviewed. Information on aneuploidy/carrier screening was provided. The patient chooses: Aneuploidy screening: chooses to proceed with First trimester early anatomy ultrasound (12-13w6d) 2) History of hypertension: Gestational Hypertension Chronic Hypertension Discussed starting Aspirin 81 mg daily at 12 weeks. Ordered baseline CMP and Protein/Creatinine Ratio today History of diabetes: GDM A2 Given pre gestational diabetes, ordered Hemoglobin A1C, TSH, CMP, PCR and MFM consult - to be discussed at next OB visit 3) History of anxiety and depression. Sertraline was effective but discontinued by PCP due to . Sertraline prescribed and will restart today. 3) B6 and Unisom for nausea. 4) Case discussed with Dr Nava. Follow up in 2 weeks or sooner prn. Maranda Engle APRN.VALERIE [facility] Instructions* Patient Instructions* Isabella Sotelo Ma - 05/16/2023 1:14 PM EDT Please select the following link to access the [facility] Your Guide to a Healthy . [email or web address] documented in this encounterDayton [facility]08-30-2023 Miscellaneous Notes* Quick Notes - Bernadette Li RN - 05/09/2023 6:06 PM EDT DISTANCE HEALTH VISIT This Team Access Model visit is a phone encounter. It required patient-provider interaction for themedical decision making as documented below. I have communicated my name and active licensure. The patient's identity and physical location wereverified at the time of this visit. Patient delivered her previous child in [facility]. She is transferring care here from [place]. She was seen at [facility] ED for threatened miscarriage. Had vaginal bleeding April 29 through April 30. Denies any bleeding since then. She is 9 weeks 5 days .Patient is complaining of nausea and occasional vomiting in . Dietary considerations discussed . Vitamin B6 recommended. She was given a prescription for Phenergan by [place] physicians and she states this has helped. Advised patient to call/come in if she is unable to keep any food or fluids down in a 24-hour period. Pt has a history o anxiety/f depression diagnosed at age 17. She has been off medication -sertraline. She believes she is doing well off medication. She states she did have depression but she never reported it. She has had counseling in the past. Discussed increased risks of depression during and and importance of reporting the development or worsening of symptoms should they occur. Pt denies ever having any suicidal thoughts or tendencies or thoughts of hurting others. I have discussed with her that she may want to consider counseling. Recommended apple seed or chrysalis. Patient was induced with her last due to gestational hypertension and question chronic hypertension versus gestational hypertension. She states that she was off antihypertensive medication 6 months . Treated byDr. Mosley. Pt smokes 5 cigarettes a day down from 3/4 pack a day a day. Discussed risks of smoking d uring . Advised pt to quit. Contact information for the [place] tobacco quit line and [facility]'s smoking cessation given to patient. Patient desires aneuploidy screening. Contact information for integrated genetics given to patient to check insurance coverage. Patient declines genetic carrier screening testing. Patient has a history of abnormal Pap smear. She had a colposcopy with biopsies done on April 24, [address] Anton Islas which showed mild squamous dysplasia. 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 Bernadette Li RN documented in this encounterDay[facility]08-30-[facility]23 History of Past illness Narrative* Problem Noted Date Diagnosed Date Resolved Date Patient request for diagnostic testing 05/09/2023 07/27/2023 Overview: 05/09/2023 Patient desires aneuploidy screening. Contact information for integrated genetics given to patient to check insurance coverage. Patient declines genetic carrier screening testing. TKRN Dysmenorrhea 12/24/2009 07/27/2023 documented as of this encounter (statuses as of 07/28/2023) [facility] History of Past illness Narrative* Problem Noted Date Diagnosed Date Resolved Date Patient request for diagnostic testing 05/09/2023 07/27/2023 Overview: 05/09/2023 Patient desires aneuploidy screening. Contact information for integrated genetics given to patient to check insurance coverage. Patient declines genetic carrier screening testing. TKRN Dysmenorrhea 12/24/2009 07/27/2023 documented as of this encounter (statuses as of 08/17/2023) [facility] of Past illness Narrative* Problem Noted Date Diagnosed Date Resolved Date Patient request for diagnostic testing 05/09/2023 07/27/2023 Overview: 05/09/2023 Patient desires aneuploidy screening. Contact information for integrated genetics given to patient to check insurance coverage. Patient declines genetic carrier screening testing. TKRN Dysmenorrhea 12/24/2009 07/27/2023 documented as of this encounter (statuses as of 08/25/2023) [facility] of Past illness Narrative* Problem Noted Date Diagnosed Date Resolved Date Patient request for diagnostic testing 05/09/2023 07/27/2023 Overview: 05/09/2023 Patient desires aneuploidy screening. Contact information for integrated genetics given to patient to check insurance coverage. Patient declines genetic carrier screening testing. TKRN Dysmenorrhea 12/24/2009 07/27/2023 documented as of this encounter (statuses as of 10/18/2023) [facility] of Past illness Narrative* Problem Noted Date Diagnosed Date Resolved Date Nausea and vomiting during 05/09/2023 10/26/2023 Overview: 05/09/2023atient is complaining of nausea and occasional vomiting in . Dietary considerations discussed . Vitamin B6 recommended. She was given a prescription for Phenergan by [place] physicians and she states this has helped. Advised patient to call/come in if she is unable to keep any food or fluids down in a 24-hour period. TKRN Patient request for diagnostic testing 05/09/2023 07/27/2023 Overview: 05/09/2023 Patient desires aneuploidy screening. Contact information for integrated genetics given to patient to check insurance coverage. Patient declines genetic carrier screening testing. TKRN Dysmenorrhea 12/24/2009 07/27/2023 documented as of this encounter (statuses as of 10/26/2023) [facility] of Past illness Narrative* Problem Noted Date Diagnosed Date Resolved Date Nausea and vomiting during 05/09/2023 10/26/2023 Overview: 05/09/2023atient is complaining of nausea and occasional vomiting in . Dietary considerations discussed . Vitamin B6 recommended. She was given a prescription for Phenergan by [place] physicians and she states this has helped. Advised patient to call/come in if she is unable to keep any food or fluids down in a 24-hour period. TKRN Patient request for diagnostic testing 05/09/2023 07/27/2023 Overview: 05/09/2023 Patient desires aneuploidy screening. Contact information for integrated genetics given to patient to check insurance coverage. Patient declines genetic carrier screening testing. TKRN Dysmenorrhea 12/24/2009 07/27/2023 documented as of this encounter (statuses as of 10/29/2023) [facility] of Past illness Narrative* Problem Noted Date Diagnosed Date Resolved Date Nausea and vomiting during 05/09/2023 10/26/2023 Overview: 05/09/2023atient is complaining of nausea and occasional vomiting in . Dietary considerations discussed . Vitamin B6 recommended. She was given a prescription for Phenergan by [place] physicians and she states this has helped. Advised patient to call/come in if she is unable to keep any food or fluids down in a 24-hour period. TKRN Patient request for diagnostic testing 05/09/2023 07/27/2023 Overview: 05/09/2023 Patient desires aneuploidy screening. Contact information for integrated genetics given to patient to check insurance coverage. Patient declines genetic carrier screening testing. TKRN Dysmenorrhea 12/24/2009 07/27/2023 documented as of this encounter (statuses as of 10/29/2023) [facility] of Past illness Narrative* Problem Noted Date Diagnosed Date Resolved Date Nausea and vomiting during 05/09/2023 10/26/2023 Overview: 05/09/2023atient is complaining of nausea and occasional vomiting in . Dietary considerations discussed . Vitamin B6 recommended. She was given a prescription for Phenergan by [place] physicians and she states this has helped. Advised patient to call/come in if she is unable to keep any food or fluids down in a 24-hour period. RN Patient request for diagnostic testing 05/09/2023 07/27/2023 Overview: 05/09/2023 Patient desires aneuploidy screening. Contact information for integrated genetics given to patient to check insurance coverage. Patient declines genetic carrier screening testing. RN Dysmenorrhea 12/24/2009 07/27/2023 documented as of this encounter (statuses as of 10/29/2023) [facility] of Past illness Narrative* Problem Noted Date Diagnosed Date Resolved Date Nausea and vomiting during 05/09/2023 10/26/2023 Overview: 3Patient is complaining of nausea and occasional vomiting in . Dietary considerations discussed . Vitamin B6 recommended. She was given a prescription for Phenergan by [place] physicians and she states this has helped. Advised patient to call/come in if she is unable to keep any food or fluids down in a 24-hour period. TKRN Patient request for diagnostic testing 05/09/2023 07/27/2023 Overview: 05/09/2023 Patient desires aneuploidy screening. Contact information for integrated genetics given to patient to check insurance coverage. Patient declines genetic carrier screening testing. TKRN Dysmenorrhea 12/24/2009 07/27/2023 documented as of this encounter (statuses as of 11/01/2023) [facility] of Past illness Narrative* Problem Noted Date Diagnosed Date Resolved Date Nausea and vomiting during 05/09/2023 10/26/2023 Overview: 3Patient is complaining of nausea and occasional vomiting in . Dietary considerations discussed . Vitamin B6 recommended. She was given a prescription for Phenergan by [place] physicians and she states this has helped. Advised patient to call/come in if she is unable to keep any food or fluids down in a 24-hour period. TKRN Patient request for diagnostic testing 05/09/2023 07/27/2023 Overview: 05/09/2023 Patient desires aneuploidy screening. Contact information for integrated genetics given to patient to check insurance coverage. Patient declines genetic carrier screening testing. TKRN Dysmenorrhea 12/24/2009 07/27/2023 documented as of this encounter (statuses as of 11/07/2023) [facility] of Past illness Narrative* Problem Noted Date Diagnosed Date Resolved Date Nausea and vomiting during 05/09/2023 10/26/2023 Overview: 3Patient is complaining of nausea and occasional vomiting in . Dietary considerations discussed . Vitamin B6 recommended. She was given a prescription for Phenergan by [place] physicians and she states this has helped. Advised patient to call/come in if she is unable to keep any food or fluids down in a 24-hour period. TKRN Patient request for diagnostic testing 05/09/2023 07/27/2023 Overview: 05/09/2023 Patient desires aneuploidy screening. Contact information for integrated genetics given to patient to check insurance coverage. Patient declines genetic carrier screening testing. TKRN Dysmenorrhea 12/24/2009 07/27/2023 documented as of this encounter (statuses as of 11/19/2023) [facility] of Past illness Narrative* Problem Noted Date Diagnosed Date Resolved Date Nausea and vomiting during 05/09/2023 10/26/2023 Overview: 3Patient is complaining of nausea and occasional vomiting in . Dietary considerations discussed . Vitamin B6 recommended. She was given a prescription for Phenergan by [place] physicians and she states this has helped. Advised patient to call/come in if she is unable to keep any food or fluids down in a 24-hour period. TKRN Patient request for diagnostic testing 05/09/2023 07/27/2023 Overview: 05/09/2023 Patient desires aneuploidy screening. Contact information for integrated genetics given to patient to check insurance coverage. Patient declines genetic carrier screening testing. TKRN Dysmenorrhea 12/24/2009 07/27/2023 documented as of this encounter (statuses as of 11/23/2023) [facility] of Past illness Narrative* Problem Noted Date Diagnosed Date Resolved Date Nausea and vomiting during 05/09/2023 10/26/2023 Overview: 3Patient is complaining of nausea and occasional vomiting in . Dietary considerations discussed . Vitamin B6 recommended. She was given a prescription for Phenergan by [place] physicians and she states this has helped. Advised patient to call/come in if she is unable to keep any food or fluids down in a 24-hour period. TKRN Patient request for diagnostic testing 05/09/2023 07/27/2023 Overview: 05/09/2023 Patient desires aneuploidy screening. Contact information for integrated genetics given to patient to check insurance coverage. Patient declines genetic carrier screening testing. TKRN Dysmenorrhea 12/24/2009 07/27/2023 documented as of this encounter (statuses as of 11/23/2023) [facility] of Past illness Narrative* Problem Noted Date Diagnosed Date Resolved Date Nausea and vomiting during 05/09/2023 10/26/2023 Overview: 3Patient is complaining of nausea and occasional vomiting in . Dietary considerations discussed . Vitamin B6 recommended. She was given a prescription for Phenergan by [place] physicians and she states this has helped. Advised patient to call/come in if she is unable to keep any food or fluids down in a 24-hour period. TKRN Patient request for diagnostic testing 05/09/2023 07/27/2023 Overview: 05/09/2023 Patient desires aneuploidy screening. Contact information for integrated genetics given to patient to check insurance coverage. Patient declines genetic carrier screening testing. TKRN Dysmenorrhea 12/24/2009 07/27/2023 documented as of this encounter (statuses as of 11/26/2023) [facility] of Past illness Narrative* Problem Noted Date Diagnosed Date Resolved Date Nausea and vomiting during 05/09/2023 10/26/2023 Overview: 3Patient is complaining of nausea and occasional vomiting in . Dietary considerations discussed . Vitamin B6 recommended. She was given a prescription for Phenergan by [place] physicians and she states this has helped. Advised patient to call/come in if she is unable to keep any food or fluids down in a 24-hour period. TKRN Patient request for diagnostic testing 05/09/2023 07/27/2023 Overview: 05/09/2023 Patient desires aneuploidy screening. Contact information for integrated genetics given to patient to check insurance coverage. Patient declines genetic carrier screening testing. TKRN Dysmenorrhea 12/24/2009 07/27/2023 documented as of this encounter (statuses as of 11/27/2023) [facility] of Past illness Narrative* Problem Noted Date Diagnosed Date Resolved Date Nausea and vomiting during 05/09/2023 10/26/2023 Overview: 3Patient is complaining of nausea and occasional vomiting in . Dietary considerations discussed . Vitamin B6 recommended. She was given a prescription for Phenergan by [place] physicians and she states this has helped. Advised patient to call/come in if she is unable to keep any food or fluids down in a 24-hour period. TKRN Patient request for diagnostic testing 05/09/2023 07/27/2023 Overview: 05/09/2023 Patient desires aneuploidy screening. Contact information for integrated genetics given to patient to check insurance coverage. Patient declines genetic carrier screening testing. TKRN Dysmenorrhea 12/24/2009 07/27/2023 documented as of this encounter (statuses as of 11/30/2023) [facility] of Past illness Narrative* Problem Noted Date Diagnosed Date Resolved Date Nausea and vomiting during 05/09/2023 10/26/2023 Overview: 05/09/2023atient is complaining of nausea and occasional vomiting in . Dietary considerations discussed . Vitamin B6 recommended. She was given a prescription for Phenergan by [place] physicians and she states this has helped. Advised patient to call/come in if she is unable to keep any food or fluids down in a 24-hour period. TKRN Patient request for diagnostic testing 05/09/2023 07/27/2023 Overview: 05/09/2023 Patient desires aneuploidy screening. Contact information for integrated genetics given to patient to check insurance coverage. Patient declines genetic carrier screening testing. TKRN Dysmenorrhea 12/24/2009 07/27/2023 documented as of this encounter (statuses as of 12/04/2023) [facility] of Past illness Narrative* Problem Noted Date Diagnosed Date Resolved Date Patient request for diagnostic testing 05/09/2023 07/27/2023 Overview: 05/09/2023 Patient desires aneuploidy screening. Contact information for integrated genetics given to patient to check insurance coverage. Patient declines genetic carrier screening testing. TKRN Dysmenorrhea 12/24/2009 07/27/2023 documented as of this encounter (statuses as of 10/11/2023) [address]30-2023 History of Present illness Narrative* Bernadette Li RN - 05/09/2023 1:22 PM EDT INITIAL OB ASSESSMENT OB Provider: Bernadette Li RN HPI: Shruti is a 32 year old White here to establish Obstetrical Care. Patient's last menstrualperiod was 02/01/2023. from OB Dating Form. Cycles regular was planned Complaints: vaginal bleeding that happened 04/29/2023-lasted 2 days OB History T1 L1 SAB0 IAB0 Ectopic0 Multiple0 Live Births1 # 1 - Date: [birth year]/27[birth year]21, Sex: Male, Weight: 5 lb 15 oz (2.693 kg), GA: 37w0d, Delivery: Vaginal, Spontaneous, Apgar1: None, Apgar5: None, Living: Living, Comments: Induced-getational DM,chronic HTN # 2 - Date: None, Sex: None, Weight: None, GA: None, Delivery: None, Apgar1: None, Apgar5: None, Living: None, Comments: None Patient's Risk Screening for delivery: Have you had a prior downs between 20w and 36w6d?: No MEDICAL/PSYCHOSOCIAL HISTORY: History of hemorrhage or bleeding concerns: No Thyroid Disease: No History of chronic hypertension: Yes History of pre-existing diabetes: No No results found for: ABORHD No weight on file for this encounter. History of abnormal pap: Yes Prior treatment for cervical dysplasia: colposcopies with biopsies in [facility]. History of STDs: HPV Tobacco use: Yes Caffeine use: Yes 1 Cola every other day Drug use: No Alcohol use: No Multivitamin with Folic acid: Yes Latter-Day or heritage: No Would refuse blood transfusion if medically necessary: No Are you currently employed? Yes, Occupation: [employer] Do you have any history of depression, anxiety, PTSD, eating disorders or other mood problems: Yes Do you have any safety concerns or history of traumatic events that you would like to discuss with your provider: No How often does this describe you? I don't have enough money to pay my bills: Never Within the past 12 months, have you worried that your food would run out before you had money to buy more: Never In the past 12 months, has lack of reliable transportation kept you from going to medical appointments or work, or from keeping things needed for daily living: Never In the past 12 months, have you had any concerns about having a place to live, or about the condition or quality of your housing: Never Are there any cultural or spiritual needs we should be aware of: No Depression: denies symptoms of depression. OB Depression and Anxiety Screening- This Encounter (since 05/08/2023) Over the past 2 weeks have you felt down, depressed, or hopeless? Positive - Further Testing Indicated Over the past two weeks, have you felt little interest or pleasure in doing things? Positive - Further Testing Indicated I have been able to laugh and see the funny side of things. As much as I always could I have looked forward with enjoyment to things. As much as I ever did I have blamed myself unnecessarily when things went wrong. Yes, some of the time I have been anxious or worried for no good reason. Yes, sometimes I have felt scared or panicky for no good reason. No, not at all Things have been getting on top of me. Yes, sometimes I haven't been coping as well as usual I have been so unhappy that I have had difficulty sleeping. Yes, sometimes I have felt sad or miserable. Not very often I have been so unhappy that I have been crying. Only occasionally The thought of harming myself has occurred to me. 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 Gender: Male History of STDs: HPV PAST MEDICAL HISTORY Diagnosis Date anxiety/depression ASCUS with positive high risk HPV cervical Atypical glandular cells of undetermined significance (J LUIS) on cervical Pap smear 01/24/2022 [place] HPV+ Breast disorder Complication of anesthesia Dysmenorrhea Excessive or frequent menstruation Heavy periods Gestational diabetes Gestational hypertension Migraine depression Tension headache PAST SURGICAL HISTORY Procedure Laterality Date EXTRACTION ERUPTED TOOTH wisdom teeth PAST SURGICAL HISTORY OF Left ACL VAGINOSCOPY Current Outpatient Medications Medication Sig Dispense Refill [id number]-folic 30 mg iron- 1 mg tab Take by mouth. promethazine (PHENERGAN) 12.5 mg tablet Take 1 tablet by mouth every 6 hours as needed. 15 tablet 1 ALPRAZolam (XANAX) 0.25 mg tablet (Patient not taking: Reported on 04/25/2023) Norethindrone Acet-Ethinyl Est 1-20 mg-mcg per tablet Take by mouth q 24 HR. (Patient not taking: Reported on 04/25/2023) sertraline (ZOLOFT) 25 mg tablet Take 1 tablet by mouth once daily. (Patient not taking: Reported on 05/09/2023) 90 tablet 3 RIZATRIPTAN BENZOATE (MAXALT ORAL) Take by mouth. (Patient not taking: Reported on 04/25/2023) No current facility-administered medications for this visit. Allergies As of Date: 05/09/2023 Allergen Noted Reaction POLLEN 07/08/2014 Other: See Comments Fully Assessed 05/09/2023 Does patient have penicillin allergy: No documented in this encounterDayton [facility]08[facility]23 Miscellaneous Notes* Telephone Encounter - Bernadette Li RN - 04/30/2023 5:04 PM EDT Patient informed * Telephone Encounter - Mayelin Villalba APRN.CNM - 04/30/2023 4:51 PM EDT Reviewed US report. On 04/29/23- Single live intrauterine at 8 weeks with positive cardiacactivity. No suspicious findings. FHT 161 bpm. Agree with plan of care and patient following up with current OBGYN until establishes care at our office. Thank you. Mayelin Villalba APRN.CNM * Telephone Encounter - Bernadette Li RN - 04/30/2023 4:36 PM EDT Patient called to say she was seen at [facility] ED 04/29/2023. She is currently a patient of [facility] [place], butplanning on transferring care here. She is 05/09/2024 and NOB with Maranda Engle 05/16/2024. She had bleeding 04/2023 and passed some tissue. No bleeding since then. Continues to have cramping intermittently that she rates a 2 on the pain scale. Discussed importance of reporting any increased pain or the development of bleeding. I have asked her to call [facility] for followup ED. Please advise if any further advice. ED report on Cp desk documented in this encounterDayton [facility] Center08-16-2023 History of Present illness Narrative* Margarita Mosley MD - 04/25/2023 5:26 PM EDT This note was created using Language Logisticsriter. Subjective Shruti Ruvalcaba is a 32 year old female. Shruti presents today with vomiting in the mornings. Sheis and approximately 7 weeks. She has yet to establish with new OB. Review of Systems Constitutional: Negative. HENT: Negative. Eyes: Negative. Respiratory: Negative. Cardiovascular: Negative. Gastrointestinal: Negative. Endocrine: Negative. Genitourinary: Negative. Musculoskeletal: Negative. Skin: Negative. Allergic/Immunologic: Negative. Neurological: Negative. Hematological: Negative. Psychiatric/Behavioral: Negative. Objective BP 130/74 (BP Site: Left Arm, BP Position: Sitting, BP Cuff Size: Large Adult) Pulse 87 Temp 36.6 C (97.9 F) (Temporal) Resp 16 Ht 164 cm (5' 4.57) Wt 79.8 kg (176 lb) LMP 08/07/2016 (Approximate) SpO2 98% BMI 29.68 kg/m Physical Exam Vitals reviewed. Constitutional: Appearance: Normal appearance. HENT: Head: Normocephalic and atraumatic. Nose: Nose normal. Eyes: Extraocular Movements: Extraocular movements intact. Pupils: Pupils are equal, round, and reactive to light. Cardiovascular: Rate and Rhythm: Normal rate and regular rhythm. Pulmonary: Effort: Pulmonary effort is normal. Breath sounds: Normal breath sounds. Abdominal: General: Bowel sounds are normal. Palpations: Abdomen is soft. Musculoskeletal: General: Normal range of motion. Cervical back: Normal range of motion and neck supple. Skin: General: Skin is warm and dry. Capillary Refill: Capillary refill takes less than 2 seconds. Neurological: General: No focal deficit present. Mental Status: She is alert and oriented to person, place, and time. Mental status is at baseline. Psychiatric: Mood and Affect: Mood normal. Behavior: Behavior normal. Assessment and Plan Encounter Diagnosis ICD-10-CM 1. Vomiting during O21.9 Suggested using sea bands. Phenergan as needed. Follow-up with OB. Margarita Mosley MD * Maria Isabel Cr LPN - 04/25/2023 4:59 PM EDT Patient in the office today She is 7 weeks and experiencing nausea and vomiting. Patient states symptoms present x 1 week. LUCIA: 11/13/2022 Wellness Exam Maria Isabel Cr LPN April 25, 2023 5:09 PM documented in this encounterDayton [facility] Center08-15-2023 Miscellaneous Notes* Telephone Encounter - Rebekah Weinberg RN - 04/24/2023 1:54 PM EDT Received outside medical records from [employer]. Placed in [facility] mailbox. 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 Patient just found out she is Damaso Mistry LPN April 06, 2023 10:26 AM documented in this encounterDayton Va Medical Center07-11-2023 NoteAccession #: [id number] Date of Procedure: 03/20/2023 Pathologist: TORSTEN LINARES MD Date Reported: 03/26/2023 Date Received: 03/20/2023 Submitting Physician: ANTON HERNANDEZ MD FINAL CYTOLOGICAL INTERPRETATION Squamous and/or Glandular Abnormality A. THINPREP PAP CERVICAL: Specimen adequacy: SATISFACTORY FOR EVALUATION. Quality Indicator: Endocervical/transformation zone component is present. General Categorization: EPITHELIAL CELL ABNORMALITY - SQUAMOUS CELL. See Interpretation. Descriptive Interpretation: LOW GRADE SQUAMOUS INTRAEPITHELIAL LESION (LSIL) - CERVIX. HIGH RISK HPV TEST RESULT: HPV GENOTYPE 16 NEGATIVE HPV GENOTYPE 18 NEGATIVE HPV GENOTYPE OTHER POSITIVE Reference Range: Negative Testing for high-risk (HR) type of human papilloma virus (HPV) is performed by the Christopher ronn HPV Test. The ronn HPV Test is a qualitative polymerase chain reaction that amplifies DNA of HPV16, HPV18 and 12 other high-risk HPV types (31, 33, 35, 39, 45, 51, 52, 56, 58, 59, 66, and 68) associated with cervical cancer and its precursor lesions. A positive result indicates the presence of HPV DNA due to one or more of the 14 genotypes: 16, 18, 31, 33, 35, 39, 45, 51, 52, 56, 58, 59, 66, and 68. Negative results indicate HPV DNA concentrations are undetectable or below the pre-set threshold for detection. False negative results may be associated with unoptimized sampling. A negative HR HPV result does not exclude the possibility of future cytologic HSIL or underlying CIN2-3 or cancer. This test is approved for cervical specimens by the US Food and Drug Administration. Results of this test should be interpreted in conjunction with the patient?s Pap test results. Please refer to [facility] current guidelines for the use of HPV DNA testing, result interpretation, and patient management. The performance of this test was verified by the Molecular Diagnostic Laboratory at [facility]. The lab is certified under the Clinical Laboratory Amendments of 1988 (CLIA 88) as qualified to perform high complexity clinical laboratory testing. This specimen has been analyzed by the [employer] Enterprise Imaging System ([employer] an automated imaging and review system, which assists the laboratory in evaluating cells on ThinPrep Pap tests. Following automated imaging, selected macias from every slide were reviewed by a biochemical development engineer and/or pathologist. Electronically Signed Out By TORSTEN LINARES MD/JASON/CHELSEA By the signature on this report, the individual or group listed as making the Final Interpretation/Diagnosis certifies that they have reviewed this case. Diagnostic interpretation performed at [facility] [id number] [facility]. [facility] [id number] Educational Note: Cervical cytology is a screening procedure primarily for squamous cancers and precursors and has associated false-negative and false-positive results as evidenced by published data. Your patient?s test should be interpreted in this context, together with patient?s history and clinical findings. Regular sampling and follow-up of unexplained clinical signs and symptoms are recommended to minimize false negative results. Clinical History Date of Last Menstrual Period: 02/01/2023 Other Clinical Conditions: COTEST HPV(Genotype) except for ASC-H, HSIL, Carcinoma - Include HPV Genotype testing Clinical Diagnosis History: Encounter for Papanicolaou smear of cervix - (Z12.4); Women's annual routine gynecological examination - (Z01.419) Source of Specimen A: THINPREP PAP CERVICAL [facility] Department of Pathology [address] [place], [place] [address]AABacharach Institute for RehabilitationComment on above:Performed By: #### C #### [facility] Cytology [id number] [facility] [id number] Miscellaneous Notes* Telephone Encounter - Maria Isabel Cr LPN - 11/17/2022 4:15 PM EST Per population health, the following needs addressed to close the patient's care gap. -Dr Mosley just needs to document the refusals in his note. Maria Isabel Cr LPN November 17, 2022 4:16 PM documented in this encounterDayton Va Medical Center03-06-2023 History of Present illness Narrative* Margarita Mosley MD - 11/13/2022 10:54 AM EST This note was created using REPUBLIC RESOURCESter. Subjective Shruti Turner is a 32 year old female. Shruti presents today for her annual wellness exam. Review of Systems Constitutional: Negative. HENT: Negative. Eyes: Negative. Respiratory: Negative. Cardiovascular: Negative. Gastrointestinal: Negative. Endocrine: Negative. Genitourinary: Negative. Musculoskeletal: Negative. Skin: Negative. Allergic/Immunologic: Negative. Neurological: Negative. Hematological: Negative. Psychiatric/Behavioral: Negative. Objective BP 138/82 (BP Site: Left Arm, BP Position: Sitting, BP Cuff Size: Large Adult) Pulse 75 Temp 36.1 C (96.9 F) (Temporal) Resp 16 Ht 164 cm (5' 4.57) Wt 78 kg (172 lb) LMP 08/07/2016 SpO2 96% BMI 29.00 kg/m Physical Exam Vitals reviewed. Constitutional: Appearance: Normal appearance. HENT: Head: Normocephalic and atraumatic. Nose: Nose normal. Eyes: Extraocular Movements: Extraocular movements intact. Pupils: Pupils are equal, round, and reactive to light. Cardiovascular: Rate and Rhythm: Normal rate and regular rhythm. Pulmonary: Effort: Pulmonary effort is normal. Breath sounds: Normal breath sounds. Abdominal: General: Bowel sounds are normal. Palpations: Abdomen is soft. Musculoskeletal: General: Normal range of motion. Cervical back: Normal range of motion and neck supple. Skin: General: Skin is warm and dry. Capillary Refill: Capillary refill takes less than 2 seconds. Neurological: General: No focal deficit present. Mental Status: She is alert and oriented to person, place, and time. Mental status is at baseline. Psychiatric: Mood and Affect: Mood normal. Behavior: Behavior normal. Assessment and Plan Shruti was seen today for wellness. Diagnoses and all orders for this visit: Screening for depression - DEPRESSION SCREENING/ASSESSMENT Anxiety - ALPRAZolam (XANAX) 0.25 mg tablet; Take 1 tablet by mouth as needed for up to 30 days. Wellness examination - COMP METABOLIC PANEL; Future Hypertension, essential - COMP METABOLIC PANEL; Future Lipid screening - LIPID PANEL BASIC; Future Screening for deficiency anemia - CBC + DIFF; Future Other orders - sertraline (ZOLOFT) 25 mg tablet; Take 1 tablet by mouth once daily. Blood pressure is normal off medication. Continue to monitor regularly. * Maria Isabel Cr LPN - 11/13/2022 10:09 AM EST Patient here today for her wellness visit. Patient denies any concerns at this time. She also states she used to be on Valsartan but she was taken off during her , she's unsure of the dose. She wants to know if she needs to start it back up. No BP medication for at least a year. HEPATITIS B(1 of 3 - 3-dose series) refused COVID-19 VACCINE(1) refused PNEUMOCOCCAL(1 - PCV) refused HIV SCREENING refused DTAP,TDAP,TD(1 - Tdap) refused PAP TESTING was done at Dr. Parks in [facility] HPV TESTING due on 07/03/2021 refused INFLUENZA(1) refused DEPRESSION ASSESSMENT done today Maria Isabel Cr LPN November 13, 2022 10:33 AM documented in this encounterDayton Va Medical Center12-12-2022 History of Present illness NarrativePresents for annual exam. She voices no complaints and is doing well. Denies any bowel or bladder problems. Denies any breast problems. She is currently on control pills. 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 Chronic hypertension. GDMA2. Final Discharge Diagnoses: 39 weeks gestation. Chronic hypertension. GDMA2. Preeclampsia Procedures: Vacuum-assisted vaginal delivery Condition at Discharge: Satisfactory Disposition at Discharge: .Home Vital Signs: T PRBPMAPSpO2 [id number]% Date/Time12/30 7: 7: 7: 7: 7: 7:15 Range(36.4C - 36.9C ) (55 - 85 ) (14 - 16 ) (129 - 144 )/ (60 - 92 ) (86 - 107 ) (97% - 99% ) Highest temp of 36.9 C was recorded at 12/30 4:10 Date: Weight/Scale Type:Height: 26-Dec-2021 07:0786.6 kg / jeievzgr829.5 cm Physical Exam: Please see rounding note Hospital Course: Patient recuperated well in the period. Patient's blood pressures were controlled with no medications after the magnesium sulfate. Patient had episode of some transient visual changes which were consistent with some chronic history. Recommended follow-up Ortho outpatient. Precautions reviewed return both blood pressure and . Patient has a close interval follow-up for blood pressure check on Sunday in office. All questions answered Immunizations: Immunizations: 12-Oct-2021 Tdap: Immunizations, 12-Oct-2021 Discharge Information: and Continuing Care: Lab Results - Pending: None Radiology Results - Pending: None [place] Suicide Risk: negative Discharge Instructions: Activity: Return to normal activity as tolerated Nutrition/Diet: Regular Follow Up Appointments: Follow-Up - OB Provider: Physician/Dept/Service: OB Provider DR. Petty Scheduled Date/Time: 02-Jan-2022 13:00 Discharge Medications: Home Medication Zoloft 25 mg oral tablet - 1 tab(s) orally once a day Tylenol 500 mg oral tablet - 2 tab(s) orally every 6 hours AD oral tablet - 1 tab(s) orally once a day ibuprofen 600 mg oral tablet - 1 tab(s) orally every 6 hours as needed pain PRN Medication DNR Status: Code StatusCode Status order at time of discharge: Full Code Electronic Signatures: Jose Carlos Petty DO (Signed 30-Dec-2021 08:19) Authored: Send Summary, Summary Content, Immunizations, Ongoing Care, DNR Status, Note Completion Last Updated: 30-Dec-2021 08:19 by Jose Carlos Petty)[facility] 12-27-2021 NoteClinical Event: Clinical Event Note: TopicProgress Note Details Doing overnight resting comfortably. Denies any headache vision changes or upper abdominal pain. Patient breast-feeding. Patient notes her bleeding is doing okay. Patient was unable to pee and had to be straight cathed 117/61 98F 99% 16 UOp 700mL since delivery Gen:NAD CV:RRR Lungs:CTAb/l Abd:Soft +BS, uterus firm. Ext:SCD+2dtr. A/P 1)PPD#0-doing well. Infant doing well. Working on breast-feeding 2) CHTN with. superimposed severe preeclampsia-noted after delivery. 20 mg IV labetalol given. Patient had some headaches during pushing as well as some slight vision changes unclear if this was related to length of labor pushing versus new onset symptoms. Decision was made to start magnesium sulfate in the face of that. Urine output adequate. Blood pressures controlled. We will continue to monitor. Lab stable 3)DVT PPX-SCd ambulate 4)GDMA2-fasting BGT PPD#1 Electronic Signatures: Jose Carlos Petty) (Signed 27-Dec-2021 07:55) Authored: Clinical Event Note Last Updated: 27-Dec-2021 07:55 by Jose Carlos Petty)[facility] 12-27-2021 NoteProvider Information: Maternal Delivery Information: Delivery Type: vaginal delivery Did this pt receive corticosteroids at any time during this : No Was intraamniotic infection diagnosed during this labor: no What antibiotic(s) were administered during labor and/or pre-incision: none Did this patient receive progesterone in any form to prevent premature delivery: no Rupture of Membranes: artificial Spontaneous Labor: no Induction or Scheduled : induction Is patient at delivery >/= to 37 to < 39 completed weeks of gestation: no Vaginal Delivery Type: assisted; Risks, benefits and alternatives to operative vaginal delivery were discussed with patient. Assessment was made of position, presentation and lie, engagement of the head, acynclitism and clinical pelvimetry. The patient was an appropriate candidate for operative vaginal delivery and elected to proceed. Assisted Vaginal Delivery: vacuum assist, outlet Vacuum: Indication: shortening of the second stage for maternal benefit Vacuum: Position: OA Vacuum: Station: +3 Vacuum: Number of Pop-offs: 2 Vaginal Delivery Complications: none Delivery Anesthesia: epidural Presentation/Lie: vertex Vertex Presentation: occiput anterior Episiotomy & Repair: midline/median Perineal Laceration: second degree Other Laceration: none Laceration Repair: yes Abrasion: none QBL (mL): 140 mL Blood Products Transfused during Delivery (indicate number of units given): none Placenta: spontaneous Choose Baby: A Cord Characteristics: nuchal cord; x1 tight Delayed Cord Clamping (equal to or greater than 30 seconds): yes Time until cord clamp: 2min Day of Delivery (Baby A): 27-Dec-2021 Gestational Age at Delivery (wk.days): 39.3 Term: term 37.0 to 41.6 weeks Live : yes Vaginal Delivery Provider: Jose Carlos Petty Dictation: not applicable - note contains Operative Report Operative Report: 31-year-old G1 at 39 2 presented for induction of labor for chronic hypertension and gestational diabetes insulin controlled. Patient was induced with Cytotec Bullock bulb and ruptured. Patient was augmented with Pitocin made to complete dilation. Patient pushed for a little over 3 hours with good descent of the baby to +3 station. Mom was wearing out and counseled on a vacuum-assisted vaginal delivery. Risk benefits alternatives discussed. Anesthesia was adequate. Vacuum was placed on infant head with no vaginal tissue noted. It was applied to the recommended green zone. With the first contraction and 3 pulls came down. With the second contraction 2 pop offs were had and a midline episiotomy was cut. With third contraction applied vacuum but with push the infant delivered without a pull. Delayed cord clamping was done. Placenta delivered spontaneously. Pitocin was initiated. Secondary laceration/midline episiotomy was repaired in the usual fashion 3-0 and 2-0 Vicryl. There is a little bit of atony which resolved with bimanual compression as well as 1 dose of Hemabate. 600 mcg of rectal Cytotec was placed as one of the pills fell on the floor so could not place 800mcg. Stasis was achieved. Patient tolerated the procedure well. Debrief was had with family. Sponge lap and instrument were correct x2. Mom and stable to recovery. Hemorrhage Risk Screen: Hemorrhage Medium Risk Factors (T&S) (2 or more medium risks Go to High Risk section & obtain T&C)IOL with oxytocin or cervical ripening, labor > or = 18 hours, operative vaginal delivery Hemorrhage Risk Assessmenthemorrhage risks reviewed and additional factors added if applicable Hemorrhage Risk Score HighPatient is at High Risk for an OB hemorrhage. Order Type & Cross. Score Calculation - IT Use Only3 Electronic Signatures: Jose Carlos Petty) (Signed 27-Dec-2021 03:09) Authored: Provider Information, Hemorrhage Risk, Note Completion Last Updated: 27-Dec-2021 03:09 by Jose Carlos Petty)[facility] 12-26-2021 NoteHPI/OB History: Care Provider: Jose Carlos Petty HPI Descriptive Info: HPI 31-year-old G1 at 39 and 2 presents for induction labor for chronic hypertension GDM A2. Denies any vaginal bleeding loss of fluid decreased movement PMH:abnormal pap, migraines, obesity, anxiety PSH:acl repair, wisdom teeth FMH:Mom, dad, Grandfather with HTN. Grandfather with MD All:NKDA Meds:See Med rec Social:Tobacco OB Hx: Complicated by chronic hypertension(no medS). Insulin controlled gestational diabetes Constitutional: No fevers, chills Eye:no vision changes Respiratory: no SOB Cardiovascular: no chest pain Gastrointestinal: No nausea, vomiting, diarrhea, constipation, abdominal pain Genitourinary:no dysuria Gynecology: See HPI Endocrine: No heat or cold intolerance Musculoskeletal: No decreased ROM Skin:No rash Neurologic: No numbness tingling Psychiatric: anxiety All other: all other systems reviewed and negative for complaint Labs: Labs: Labs: Blood Typed Date: 24-Jun-2021 Chlamydia Date: 24-Jun-2021 Chlamydia Results: negative Gonorrhea Date: 24-Jun-2021 Gonorrhea Results: negative Group B Strep Date: 06-Dec-2021 Strep Results: negative GTT - Extended (dd-mmm-yy): 29-Jun-2021 GTT - Extended - Fastin GTT - Extended - 1 hour: 222 GTT - Extended - 2 hour: 163 GTT - Extended - 3 hour: 91 HBsAG Date: 24-Jun-2021 HBsAG Results: negative Hemoglobin A1C (dd-mmm-yy): 30-Nov-2021 Hemoglobin A1C: 5.3 % Estimated Average Glucose: 105 HIV Date: 24-Jun-2021 HIV Results: negative Rubella Date: 24-Jun-2021 Rubella Results: immune Rubella Comments: Result Value POSITIVE Syphilis (mmm-ddyyyy): 24-Jun-2021 Syphilis Results: negative Urine Spot (-): 30-Nov-2021 Total Protein/Creatinine Ratio: 0.33 Antepartum/: Antepartum/PP: Final [id number] Current EGA:39.2 Patient is > or = 35.0 wks EGAyes Determined byultrasound Date of [id number] EFW (kg)2.315 kilogram(s) EFW (lb)5 pound(s) EFW (oz)2 ounce(s) Presentationcephalic presentation verified bybedside ultrasound Vaginal BleedingNo Contractions/Abdominal PainYes Discharge/Loss of FluidNo MovementGood Hemorrhage Medium Risk Factors (T&S) (2 or more medium risks Go to High Risk section & obtain T&C)IOL with oxytocin or cervical ripening Hemorrhage Risk Assessmenthemorrhage risk completed on admission Hemorrhage Risk ScorePatient is at Medium Risk for an OB hemorrhage. Order Type & Screen. Score Calculation - IT Use Only1 TOLACno Did this patient receive progesterone in any form to prevent premature deliveryno Does patient desire postplacental IUDno Allergies: No Known Allergies: Medications Prior to Admission: Admission Medication Reconciliation has not been completed for this patient. Objective: Physical Exam by System: Constitutional: alert, oriented Obstetric: CaT I TOoc: occasional Cx:2.5/50/-3 Eyes: pupils equal, sclerae clear Respiratory/Thorax: Clear to auscultation bilaterally Cardiovascular: Regular rhythm Gastrointestinal: Soft positive bowel sound appropriate tender gravid Extremities: Negative calf pain Neurological: DTR +2 no clonus Psychological: Anxious Skin: no rashes or lesions Recent Lab Results: Results: CBC: 11/30/2021 12:10 \ Hgb / \ 14.5 / WBC Plt 12.4 H 248 / Hct \ / 42.7 \ RBC: 4.73 MCV: 90 Neutrophil %: 82.1 CMP: 11/30/2021 12:10 NA+ Cl- BUN / 139 107 6 / Glucose 83 K+ HCO3- Creat \ 4.2 25 0.59 \ \ T Bili / \ 0.5 / AST x ---- x ALT 13 x ---- x 6 L / Alk P \ / 106 \ Calcium : 8.9 Anion Gap : 11 Albumin : 3.2 L T Protein : 6.0 L Assessment and Plan: Assessment: 1)IOL-GDMA2/CHTN-Cytotec and Bullock bulb placed. 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 * Height/Weight: Pre- Weight: 173 lbs, Pre- BMI: 29.7, Overall Weight Change in : 4lb wt gain to-date and Assessment of Weight Change: At pre- BMI of 30.0 or greater, total recommended weight gain is 11-20 pounds, with a recommended 2nd and 3rd trimester weight gain of 0.4 - 0.6 pounds per week. * Food Nutrition Related History: Patient seen for follow-up diet education today r/t diabetes in : GDM * Attended [employer]. * Adding more protein to daily intake. * Not always having a bedtime snack. Sometimes * 13hrs w/o eating overnight. * Would like additional ideas for breakfast * Is starting insulin. 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 * Food Nutrition Related History: Patient seen for follow-up diet education today r/t diabetes in : GDM * Attended [employer]. * Starting insulin. [id number] [employer] Work Phone: [phone]) 588-527112-01-2021 History of Present illness Narrative* 31 y/o G1 @ 19.3wga by LMP c/w 8 week US presenting as MFM referral by Dr. Petty for early GDMA andcHTN. * Has been checking sugars at home and sending in logs * F: 92-98 (5/7 above range) * B: 120-166 (1/5 above range) * L: 98-144 (1/4 above range) * D: 127-151 (2/4 above range) * notable for: * -cHTN, diagnosed 3 years ago, previously on losartan, baseline P:C 0.09, on labetalol 50mg BID and ASA PPx, BPs 120s/80s at home * -GDMA, early hgb A1c 5.9%, early 3hr GTT with 3/4 values above range * -Tobacco use, 1ppd prior to , now down to 5-6 cig/day * -Migraine HAs, taking tylenol and reglan * -Pap with atypical endocervical cells and HRHPV other, s/p OB colpo * OBHx: G1 * GynHx: denies STIs, last pap with atypical endocervical cells and HRHPV other s/p OB colpo * PMHx: cHTN * SurgHx: ACL repair * Meds: labetalol, ASA, reglan, PNV, tylenol * All: NKDA * Social: 5-6 cig/day, denies e/i * FHx: HTN, DM, paternal grandfather of MD at age [address] Work Phone: [phone]) [phone] History of Present illness Narrative* 31 y/o G1 @ 19.3wga by LMP c/w 8 week US presenting as M referral by Dr. Petty for early GDMA andcHTN. * Has been checking sugars at home and sending in logs * F: 92-98 (5/7 above range) * B: 120-166 (1/5 above range) * L: 98-144 (1/4 above range) * D: 127-151 (2/4 above range) * notable for: * -cHTN, diagnosed 3 years ago, previously on losartan, baseline P:C 0.09, on labetalol 50mg BID and ASA PPx, BPs 120s/80s at home * -GDMA, early hgb A1c 5.9%, early 3hr GTT with 3/4 values above range * -Tobacco use, 1ppd prior to , now down to 5-6 cig/day * -Migraine HAs, taking tylenol and reglan * -Pap with atypical endocervical cells and HRHPV other, s/p OB colpo * OBHx: G1 * GynHx: denies STIs, last pap with atypical endocervical cells and HRHPV other s/p OB colpo * PMHx: cHTN * SurgHx: ACL repair * Meds: labetalol, ASA, reglan, PNV, tylenol * All: NKDA * Social: 5-6 cig/day, denies e/i * FHx: HTN, DM, paternal grandfather of MD at age [address] Work Phone: Evaluation note* Extremities: Negative calf painGastrointestinal: Soft positive bowel sounds appropriate tender nondi stended.Uterus firm below umbilicusCardiovascular: Regular rate and rhythmRespiratory/Thorax: Clearto auscultation bilaterallyEyes: Bilateral conjunctival hemorrhagesSkin: no rashes or lesionsConstitutional: alert, oriented [facility]* Diagnosis Screening for depression- Primary Anxiety Anxiety state, unspecified Wellness examination Hypertension, essential Unspecified essential hypertension Lipid screening Screening for lipoid disorders Screening for deficiency anemia Screening for other and unspecified deficiency anemia [facility]* Diagnosis Vomiting during - Primary [facility] noteNo assessment information availableWOhioHealth [facility] Work Phone: Evaluation note* Diagnosis with care elsewhere, antepartum- Primary Bleeding in early Unspecified hemorrhage in early , unspecified as to episode of care Nausea and vomiting during History of depression History of depression Personal history of other mental disorder History of maternal hypertension Personal history of other genital system and obstetric disorders History of gestational diabetes in prior , currently with other poor obstetric history Tobacco use disorder complicating , childbirth, or puerperium, antepartum, unspecified trimester Patient request for diagnostic testing Other specified examination Abnormal cervical Papanicolaou smear affecting in first trimester [facility]* Diagnosis 10 weeks gestation of - Primary state, incidental Anxiety with depression History of gestational diabetes in prior , currently with other poor obstetric history History of gestational hypertension [facility]* Diagnosis 12 weeks gestation of - Primary state, incidental History of gestational diabetes in prior , currently with other poor obstetric history History of gestational hypertension with care elsewhere, antepartum Sciatica of right side Sciatica Encounter for screening of mother Unspecified screening [facility]* Diagnosis Encounter for (NT) nuchal translucency scan- Primary Other specified screening 12 weeks gestation of state, incidental [facility]* Diagnosis Headache in , antepartum, second trimester- Primary History of gestational hypertension with care elsewhere, antepartum History of gestational diabetes in prior , currently with other poor obstetric history 17 weeks gestation of state, incidental [facility]* Diagnosis 21 weeks gestation of - Primary state, incidental History of gestational hypertension with care elsewhere, antepartum Single umbilical artery affecting management of mother in downs , antepartum [facility]* Diagnosis 25 weeks gestation of - Primary state, incidental History of gestational hypertension with care elsewhere, antepartum 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 History of gestational diabetes in prior , currently with other poor obstetric history [facility]* Diagnosis Gestational diabetes mellitus (GDM) in third trimester, gestational diabetes method of control unspecified- Primary 34 weeks gestation of state, incidental History of gestational diabetes in prior , currently with other poor obstetric history [facility]* Diagnosis 31 weeks gestation of state, incidental Gestational diabetes mellitus (GDM) in third trimester, gestational diabetes method of control unspecified [facility]* Diagnosis Dietary counseling- Primary Dietary surveillance and counseling 34 weeks gestation of state, incidental Gestational diabetes mellitus (GDM) in third trimester, gestational diabetes method of control unspecified [facility]* Diagnosis 34 weeks gestation of - Primary state, incidental Insulin controlled gestational diabetes mellitus (GDM) in third trimester [facility]* Diagnosis Encounter for supervision of high risk in third trimester, antepartum- Primary 35 weeks gestation of state, incidental Insulin controlled gestational diabetes mellitus (GDM) in third trimester Single umbilical artery affecting management of mother in downs , antepartum Folliculitis Other specified disease of hair and hair follicles [facility]* Diagnosis Insulin controlled gestational diabetes mellitus (GDM) in third trimester- Primary 37 weeks gestation of state, incidental Encounter for supervision of high risk in third trimester, antepartum Breech presentation with problem, single or unspecified fetus [facility]* Diagnosis 37 weeks gestation of - Primary state, incidental Encounter for supervision of high risk in third trimester, antepartum Insulin controlled gestational diabetes mellitus (GDM) in third trimester Breech presentation with problem, single or unspecified fetus [facility]* Diagnosis Encounter for supervision of high risk in third trimester, antepartum- Primary Insulin controlled gestational diabetes mellitus (GDM) in third trimester 38 weeks gestation of state, incidental Single umbilical artery affecting management of mother in downs , antepartum [facility]* Diagnosis Onset Date Resolution Status 39 weeks gestation of acute Delivery by elective section acute Unstable lie of fetus [facility] Work Phone: Evaluation note* Diagnosis care and examination- Primary Routine follow-up Screening for malignant neoplasm of cervix Screening for malignant neoplasm of the cervix Special screening examination for human papillomavirus (HPV) Encounter for initial prescription of contraceptive pills General counseling for prescription of oral contraceptives History of gestational diabetes Personal history of gestational diabetes [facility]* Diagnosis Anxiety with depression [facility]* Diagnosis ASCUS with positive high risk HPV cervical- Primary Cervical high risk human papillomavirus (HPV) DNA test positive documented [facility]* Diagnosis ASCUS with positive high risk HPV cervical- Primary Cervical high risk human papillomavirus (HPV) DNA test positive [facility]* Diagnosis Wellness examination- Primary Screening for depression Acute midline low back pain with right-sided sciatica Anxiety Anxiety state, unspecified Hypertension, essential Unspecified essential hypertension Lipid screening Screening for lipoid disorders Screening for deficiency anemia Screening for other and unspecified deficiency anemia [facility]* Diagnosis Acute midline low back pain with right-sided sciatica- Primary [facility]* Diagnosis Acute midline low back pain with right-sided sciatica documented [facility]* Diagnosis Acute midline low back pain with right-sided sciatica- Primary [facility]* Diagnosis Spinal stenosis of lumbosacral region- Primary Spinal stenosis, lumbar region, without neurogenic claudication [facility]* Diagnosis Anxiety Anxiety state, unspecified [facility]* Diagnosis RUQ pain- Primary Abdominal pain, right upper quadrant Nausea and vomiting, unspecified vomiting type Anxiety Anxiety state, unspecified [facility]* Diagnosis RUQ pain Abdominal pain, right upper quadrant [facility] [id number] G1 presents for secondary amenorrhea. Patient has breast tenderness and slight nausea. Denies any vomiting. Denies any vaginal bleeding. Patient is was unintended, was on the pill but had not gotten it refilled as she moved.[address] Work Phone: History of Present illness Narrative* Blood Glucose Levels: Before meals * 87-116, after meals * 94-149. * Food/Nutrition related history: Intake: >/= 75% 24 hour food recall: * Breakfast: * 1/2 bagel with cream cheese * orange juice * banana or yogurt * Snack: * popcorn or peanut butter cracker * or vatican citizen muffin with peanut butter and jelly * or botswanan cheese * or fruit snacks (also after dinner) * Dinner/Early Dinner: * Meat with two sides * and typically have a salad as well * Dessert (closely after dinner): ice cream or hot chocolate * Pizza once a week * Pasta once a week * Grilled cheese and tomato soup once a week * No seafood or fish * Goes for a while without eating something before going to bed. * Gave up soda. * Food Allergy/Intolerance: Patient has no food allergies. * Appetite: Good * Fluid Intake: a lot of water, 1 cup of coffee, chocolate or white milk, carbonated water, some juice, etc. * GI Symptoms: constipation . No more nausea. Diagnosed with IBS. Constipation with being . Some bloating. * Oral Problems: denies * Dentition: own * Mobility: * Physical Activity: Not really. Was taking her dog for a walk * 1.5hr. Will walk on her treadmill for * 45 minutes per day when it comes it. * Sleep: 7+ hours, disrupted and Sleeping better through the night. * Dietary Supplements: pre-. * Food Preparation Cooking: patient. * Food Preparation Grocery Shopping: patient. * Food Preparation Dining Out: 1 to 3 times a month. * Typically cook at home. [facility] Work Phone: History of Present illness Narrative* Blood Glucose Levels: Before meals * 87-116mg/dL, after meals * 94-149mg/dL. * Food/Nutrition related history: Intake: >/= 75% 24 hour food recall: * Breakfast: * 1/2 bagel with cream cheese * orange juice * banana or yogurt * Snack: * popcorn or peanut butter cracker * or vatican citizen muffin with peanut butter and jelly * or botswanan cheese * or fruit snacks (also after dinner) * Early Dinner: * Meat with two sides * and typically have a salad as well * Dessert (closely after dinner): ice cream or hot chocolate * Pizza once a week * Pasta once a week * Grilled cheese and tomato soup once a week * No seafood or fish * Goes for a while without eating something before going to bed typically. * Gave up soda after learning she has gestational diabetes. * Food Allergy/Intolerance: Patient has no food allergies. * Appetite: Good * Fluid Intake: a lot of water, 1 cup of coffee, chocolate or white milk, carbonated water, some juice, etc. * GI Symptoms: bloating and constipation . No more nausea. Diagnosed with IBS. Constipation with being . Some bloating. * Oral Problems: denies * Dentition: own * Mobility: * Physical Activity: Not really any physical activity per pt.. Was taking her dog for a walk for * 1.5hr. Will walk on her treadmill for * 45 minutes per day when it starts to get cold. * Sleep: 7+ hours, disrupted and Sleeping better through the night. * Dietary Supplements: pre- supplement. * Food Preparation Cooking: patient. * Food Preparation Grocery Shopping: patient. * Food Preparation Dining Out: 1 to 3 times a month. * Typically cooks at home. * Additional Comments: * . 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 * Height/Weight: Pre- Weight: 173lb on 05/27/21 * Nutrition Risk Factors: obesity and gestational diabetes [facility] Work Phone: History of Present illness [id number] presents for colposcopy for ASCUS positive HPV. Patient has a history of an abnormal Pap and HPV in the pastW[address] Work Phone: History of Present illness [id number] presents for blood pressure check status post vacuum-assisted vaginal delivery for 3 and half hours of pushing. was complicated by GDM A2 insulin controlled and chronic hypertension on no meds. Patient spiked severe range blood pressures in . Was started on magnesiumsulfate. Patient 24 hours magnesium and blood pressure stabilized and 130s 140s prior to discharge. Patient had some transient vision changes which she noted to have had in the past. Patient notes that this vision changes are decreasing and she does not have any headaches or vision changes. Patientnotes blood pressures in the 1 teens to 120s over 70s at home. Patient otherwise doing well and hasno acute concerns.[employer] Work Phone: History of Present illness Narrative* 31-year-old presents for 6-week visit. Patient's was complicated by chronic hypertension on no meds insulin controlled gestational diabetes. Patient had vacuum-assisted vaginal delivery after 3+ hours of pushing, with a second-degree laceration. Patient developed in the . Severe preeclampsia requiring IV medications and magnesium. Patient had some transient visual changes and had recommended follow-up with Ortho outpatient. * Patient she is doing well. Little bit anxious when she is home along with a child but better once her 's home products are Sunday. Patient safe at home not sexually active. 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 Like discussed control. Patient notes lots of tailbone pain that still causing some discomfort and sitting for long periods. [employer] Work Phone: [phone] of Present illness [id number] presents for colposcopy results. Patient is no acute concerns. Patient notes she is doing better with physical therapy.[employer] Work Phone: Hospital Discharge instructions* Activity:Return to normal activity as tolerated. * Patient Instructions:Pelvic Rest: DO NOT place anything in vagina until cleared by OB Provider. * Follow-Up - OB Provider:Physician/Dept/Service: OB Provider, DR. Romocheduled Date/Time: 02-Jan-2022 13:00 * Gold Form - Other Clinicians:Other Clinician Instructions: Any woman can have complications after the of a baby including a blood clot, a heart problem, hypertensive disorder/eclampsia, depression, hemorrhage, or infection. Notify all providers of your delivery date up to one year after .* Call 911 or go to nearest emergency room right away if you have: PAIN or pressure in chest; OBSTRUCTED breathing or shortness of breath; SEIZURES; THOUGHTS of hurting yourself or your baby; heart palpitations/racing; change in alertness/confusion.Call your provider if you have: BLEEDING, soaking t hrough a pad/hour, or blood clots the size of an egg or bigger; INCISION (episiotomy stitches or site) that is not healing (increased redness, pain, drainage/pus, or separation); RED or swollen leg/calf that is painful or warm to touch, especially in one leg more than the other; TEMPERATURE of 100.4 F or higher or chills; HEADACHE that does not get better with medicine, rest or hydration, or bad headache with vision changes like spots or flashing lights; increased swelling of face, hands or legs; severe cramps or upper right belly pain; red or swollen breast that is painful or warm to touch; an unusual, foul odor from your vaginal discharge; pain, burning, or difficulty during urination; severe constipation (more than 5 days); feelings of depression (such as depressed mood, lossof interest in enjoyable things, unable to care for yourself, trouble sleeping, lack of appetite, or feeling worthless). If you can t reach your provider or symptoms worsen, call 911 or go to nearestemergency room. *Information obtained from JIM mccormick: Save Your Life: Get Care for These POST- Warning SignsOn Behalf on the [facility] Maternity Staff, Congratulations on your infant. It was our pleasure to take care of you and your during your stay. We hope during this stay that we have exceeded all of your expectations. We will be calling you in a few days to check up on you and your infant. Please allow us to speak with you and please ask questions or let us know if you have any concerns. If you need any assistance after you go home please give us a call. Also, please join our [facility] Support Group which meets the sunday of every month at 10 am in the OB unit. No need to register. If you have any questions please call us at [phone]. Again, Congratulations! Warmest Regards,[facility] Maternity Staff [facility] Additional Instructions Date of Dis[facility]: [facility] Work Phone: Reason for referral (narrative)* Diagnostic Procedure Only (Routine) - Authorized Specialty Diagnoses / Procedures Referred By Contac t Referred To Contact [facility] Diagnoses 10 weeks gestation of Procedures NUCHAL TRANSLUCENCY WHI US NUCHAL TRANSLUCENCY 1ST GESTATION Maranda Engle APRN.CNP [address] [place] [address] [facility] [place] [address] Referral ID Status Reason Start Date Expiration Date Visits Requested Visits Authorized [id number] Authorized Auto-Generat ed Referral 05/16/2023 05/15/2024 1 1 [facility] for referral (narrative)* Diagnostic Procedure Only (Routine) - Closed Specialty Diagnoses / Procedures Referred By Contac t Referred To Contact [facility] Diagnoses 21 weeks gestation of History of gestational hypertension with care elsewhere, antepartum Procedures OBSTETRIC ULTRASOUND WHI US PREG UTERUS AFTER 1ST TRIMEST 1 GESTATION Alana Nava MD [address] [place] [address] [facility] [address] [place] [address] Referral ID Status Reason Start Date Expiration Date V isits Requested Visits Authorized [id number] Closed Auto-Generate d Referral 07/27/2023 09/09/2023 1 1 [facility] for referral (narrative)* Outpatient Procedure (Routine) - Authorized Specialty Diagnoses / Procedures Referred By Contac t Referred To Contact [facility] Diagnoses Gestational diabetes mellitus (GDM) in third trimester, gestational diabetes method of control unspecified 34 weeks gestation of Procedures NON-STRESS TEST NON-STRESS TEST Annika Lehman MD [address] [place] [address] [address] Referral ID Status Reason Start Date Expiration Date Visits Requested Visits Authorized [id number] Authorized Auto-Generat ed Referral 10/26/2023 10/25/2024 6 1 [facility] for referral (narrative)* Outpatient Procedure (Routine) - Authorized Specialty Diagnoses / Procedures Referred By Contac t Referred To Contact [facility] Diagnoses ASCUS with positive high risk HPV cervical Procedures COLPOSCOPY COLPOSCOPY CERVIX BX CERVIX & ENDOCRV CURRETAGE Chris Law MD [address] [facility] [place] [address] [address] Referral ID Status Reason Start Date Expiration Date Visits Requested Visits Authorized [id number] Authorized Auto-Generat ed Referral 01/31/2024 01/27/2025 1 1 [facility] for referral (narrative)* Outpatient Procedure (Routine) - Closed Specialty Diagnoses / Procedures Referred By Contac t Referred To Contact [facility] Diagnoses ASCUS with positive high risk HPV cervical Procedures COLPOSCOPY COLPOSCOPY CERVIX BX CERVIX & ENDOCRV CURRETAGE COLPOSCOPY CERVIX BX CERVIX & ENDOCRV CURRETAGE Chris Law MD [address] [facility] [place] [place] [address] [address] Referral ID Status Reason Start Date Expiration Date V isits Requested Visits Authorized [id number] Closed Auto-Generate d Referral 02/21/2024 09/09/2024 1 [facility]No reason for referral information availableWOhio[facility] Work Phone: Reason for visit Narrative* Diagnostic Procedure Only (Routine) - Closed Specialty Diagnoses / Procedures Referred By Anna t Referred To Contact [facility] Diagnoses RUQ pain Procedures US ABD RIGHT UPPER QUADRANT US ABDOMINAL REAL TIME W/IMAGE LIMITED Margarita Mosley MD [address] [place] [address] Phone: tel: fax: [place] [id number] Referral ID Status Reason Start Date Expiration Date V isits Requested Visits Authorized [id number] Closed Auto-Generate d Referral 02/25/2025 03/27/2026 1 1 [facility] Summary Purpose Family History No Family History Records FoundUnknown Family Member Name Dates Details Family history of hypertensi on: Mother, Father, Grandfather(V17.49, Z82.49) Status:Active Family history of thyroid di sease: Mother(V18.19, Z83.49) Status:Active Family history of myocardial infarction: Grandfather(V17.3, Z82.49) Status:Active Unknown Family Member Name Dates Details Family history of hypertensi on: Mother, Father, Grandfather(V17.49, Z82.49) Status:Active Family history of thyroid di sease: Mother(V18.19, Z83.49) Status:Active Family history of myocardial infarction: Grandfather(V17.3, Z82.49) Status:Active Unknown Family Member Name Dates Details Family history of hypertensi on: Mother, Father, Grandfather(V17.49, Z82.49) Status:Active Family history of thyroid di sease: Mother(V18.19, Z83.49) Status:Active Family history of myocardial infarction: Grandfather(V17.3, Z82.49) Status:Active Unknown Family Member Name Dates Details Family history of hypertensi on: Mother, Father, Grandfather(V17.49, Z82.49) Status:Active Family history of thyroid di sease: Mother(V18.19, Z83.49) Status:Active Family history of myocardial infarction: Grandfather(V17.3, Z82.49) Status:Active Unknown Family Member Name Dates Details Family history of hypertensi on: Mother, Father, Grandfather(V17.49, Z82.49) Status:Active Family history of thyroid di sease: Mother(V18.19, Z83.49) Status:Active Family history of myocardial infarction: Grandfather(V17.3, Z82.49) Status:Active Unknown Family Member Name Dates Details Family history of hypertensi on: Mother, Father, Grandfather(V17.49, Z82.49) Status:Active Family history of thyroid di sease: Mother(V18.19, Z83.49) Status:Active Family history of myocardial infarction: Grandfather(V17.3, Z82.49) Status:Active Unknown Family Member Name Dates Details Family history of hypertensi on: Mother, Father, Grandfather(V17.49, Z82.49) Status:Active Family history of thyroid di sease: Mother(V18.19, Z83.49) Status:Active Family history of myocardial infarction: Grandfather(V17.3, Z82.49) Status:Active Unknown Family Member Name Dates Details Family history of hypertensi on: Mother, Father, Grandfather(V17.49, Z82.49) Status:Active Family history of thyroid di sease: Mother(V18.19, Z83.49) Status:Active Family history of myocardial infarction: Grandfather(V17.3, Z82.49) Status:Active Unknown Family Member Name Dates Details Family history of hypertensi on: Mother, Father, Grandfather(V17.49, Z82.49) Status:Active Family history of thyroid di sease: Mother(V18.19, Z83.49) Status:Active Family history of myocardial infarction: Grandfather(V17.3, Z82.49) Status:Active Unknown Family Member Name Dates Details Family history of hypertensi on: Mother, Father, Grandfather(V17.49, Z82.49) Status:Active Family history of thyroid di sease: Mother(V18.19, Z83.49) Status:Active Family history of myocardial infarction: Grandfather(V17.3, Z82.49) Status:Active Unknown Family Member Name Dates Details Family history of hypertensi on: Mother, Father, Grandfather(V17.49, Z82.49) Status:Active Family history of thyroid di sease: Mother(V18.19, Z83.49) Status:Active Family history of myocardial infarction: Grandfather(V17.3, Z82.49) Status:Active Unknown Family Member Name Dates Details Family history of hypertensi on: Mother, Father, Grandfather(V17.49, Z82.49) Status:Active Family history of thyroid di sease: Mother(V18.19, Z83.49) Status:Active Family history of myocardial infarction: Grandfather(V17.3, Z82.49) Status:Active Unknown Family Member Name Dates Details Family history of hypertensi on: Mother, Father, Grandfather(V17.49, Z82.49) Status:Active Family history of thyroid di sease: Mother(V18.19, Z83.49) Status:Active Family history of myocardial infarction: Grandfather(V17.3, Z82.49) Status:Active Unknown Family Member Name Dates Details Family history of hypertensi on: Mother, Father, Grandfather(V17.49, Z82.49) Status:Active Family history of thyroid di sease: Mother(V18.19, Z83.49) Status:Active Family history of myocardial infarction: Grandfather(V17.3, Z82.49) Status:Active Unknown Family Member Name Dates Details Family history of hypertensi on: Mother, Father, Grandfather(V17.49, Z82.49) Status:Active Family history of thyroid di sease: Mother(V18.19, Z83.49) Status:Active Family history of myocardial infarction: Grandfather(V17.3, Z82.49) Status:Active Unknown Family Member Name Dates Details Family history of hypertensi on: Mother, Father, Grandfather(V17.49, Z82.49) Status:Active Family history of thyroid di sease: Mother(V18.19, Z83.49) Status:Active Family history of myocardial infarction: Grandfather(V17.3, Z82.49) Status:Active Unknown Family Member Name Dates Details Family history of hypertensi on: Mother, Father, Grandfather(V17.49, Z82.49) Status:Active Family history of thyroid di sease: Mother(V18.19, Z83.49) Status:Active Family history of myocardial infarction: Grandfather(V17.3, Z82.49) Status:Active Unknown Family Member Name Dates Details Family history of hypertensi on: Mother, Father, Grandfather(V17.49, Z82.49) Status:Active Family history of thyroid di sease: Mother(V18.19, Z83.49) Status:Active Family history of myocardial infarction: Grandfather(V17.3, Z82.49) Status:Active Unknown Family Member Name Dates Details Family history of hypertensi on: Mother, Father, Grandfather(V17.49, Z82.49) Status:Active Family history of thyroid di sease: Mother(V18.19, Z83.49) Status:Active Family history of myocardial infarction: Grandfather(V17.3, Z82.49) Status:Active Unknown Family Member Name Dates Details Family history of hypertensi on: Mother, Father, Grandfather(V17.49, Z82.49) Status:Active Family history of thyroid di sease: Mother(V18.19, Z83.49) Status:Active Family history of myocardial infarction: Grandfather(V17.3, Z82.49) Status:Active Unknown Family Member Name Dates Details Family history of hypertensi on: Mother, Father, Grandfather(V17.49, Z82.49) Status:Active Family history of thyroid di sease: Mother(V18.19, Z83.49) Status:Active Family history of myocardial infarction: Grandfather(V17.3, Z82.49) Status:Active Unknown Family Member Name Dates Details Family history of hypertensi on: Mother, Father, Grandfather(V17.49, Z82.49) Status:Active Family history of thyroid di sease: Mother(V18.19, Z83.49) Status:Active Family history of myocardial infarction: Grandfather(V17.3, Z82.49) Status:Active Unknown Family Member Name Dates Details Family history of hypertensi on: Mother, Father, Grandfather(V17.49, Z82.49) Status:Active Family history of thyroid di sease: Mother(V18.19, Z83.49) Status:Active Family history of myocardial infarction: Grandfather(V17.3, Z82.49) Status:Active Unknown Family Member Name Dates Details Family history of hypertensi on: Mother, Father, Grandfather(V17.49, Z82.49) Status:Active Family history of thyroid di sease: Mother(V18.19, Z83.49) Status:Active Family history of myocardial infarction: Grandfather(V17.3, Z82.49) Status:Active Unknown Family Member Name Dates Details Family history of hypertensi on: Mother, Father, Grandfather(V17.49, Z82.49) Status:Active Family history of thyroid di sease: Mother(V18.19, Z83.49) Status:Active Family history of myocardial infarction: Grandfather(V17.3, Z82.49) Status:Active Unknown Family Member Name Dates Details Family history of hypertensi on: Mother, Father, Grandfather(V17.49, Z82.49) Status:Active Family history of thyroid di sease: Mother(V18.19, Z83.49) Status:Active Family history of myocardial infarction: Grandfather(V17.3, Z82.49) Status:Active Unknown Family Member Name Dates Details Family history of hypertensi on: Mother, Father, Grandfather(V17.49, Z82.49) Status:Active Family history of thyroid di sease: Mother(V18.19, Z83.49) Status:Active Family history of myocardial infarction: Grandfather(V17.3, Z82.49) Status:Active Unknown Family Member Name Dates Details Family history of hypertensi on: Mother, Father, Grandfather(V17.49, Z82.49) Status:Active Family history of thyroid di sease: Mother(V18.19, Z83.49) Status:Active Family history of myocardial infarction: Grandfather(V17.3, Z82.49) Status:Active Unknown Family Member Name Dates Details Family history of hypertensi on: Mother, Father, Grandfather(V17.49, Z82.49) Status:Active Family history of thyroid di sease: Mother(V18.19, Z83.49) Status:Active Family history of myocardial infarction: Grandfather(V17.3, Z82.49) Status:Active Unknown Family Member Name Dates Details Family history of hypertensi on: Mother, Father, Grandfather(V17.49, Z82.49) Status:Active Family history of thyroid di sease: Mother(V18.19, Z83.49) Status:Active Family history of myocardial infarction: Grandfather(V17.3, Z82.49) Status:Active Unknown Family Member Name Dates Details Family history of hypertensi on: Mother, Father, Grandfather(V17.49, Z82.49) Status:Active Family history of thyroid di sease: Mother(V18.19, Z83.49) Status:Active Family history of myocardial infarction: Grandfather(V17.3, Z82.49) Status:Active Unknown Family Member Name Dates Details Family history of hypertensi on: Mother, Father, Grandfather(V17.49, Z82.49) Status:Active Family history of thyroid di sease: Mother(V18.19, Z83.49) Status:Active Family history of myocardial infarction: Grandfather(V17.3, Z82.49) Status:Active Unknown Family Member Name Dates Details Family history of hypertensi on: Mother, Father, Grandfather(V17.49, Z82.49) Status:Active Family history of thyroid di sease: Mother(V18.19, Z83.49) Status:Active Family history of myocardial infarction: Grandfather(V17.3, Z82.49) Status:Active Unknown Family Member Name Dates Details Family history of hypertensi on: Mother, Father, Grandfather(V17.49, Z82.49) Status:Active Family history of thyroid di sease: Mother(V18.19, Z83.49) Status:Active Family history of myocardial infarction: Grandfather(V17.3, Z82.49) Status:Active Unknown Family Member Name Dates Details Family history of hypertensi on: Mother, Father, Grandfather(V17.49, Z82.49) Status:Active Family history of thyroid di sease: Mother(V18.19, Z83.49) Status:Active Family history of myocardial infarction: Grandfather(V17.3, Z82.49) Status:Active Unknown Family Member Name Dates Details Family history of hypertensi on: Mother, Father, Grandfather(V17.49, Z82.49) Status:Active Family history of thyroid di sease: Mother(V18.19, Z83.49) Status:Active Family history of myocardial infarction: Grandfather(V17.3, Z82.49) Status:Active Unknown Family Member Name Dates Details Family history of hypertensi on: Mother, Father, Grandfather(V17.49, Z82.49) Status:Active Family history of thyroid di sease: Mother(V18.19, Z83.49) Status:Active Family history of myocardial infarction: Grandfather(V17.3, Z82.49) Status:Active Unknown Family Member Name Dates Details Family history of hypertensi on: Mother, Father, Grandfather(V17.49, Z82.49) Status:Active Family history of thyroid di sease: Mother(V18.19, Z83.49) Status:Active Family history of myocardial infarction: Grandfather(V17.3, Z82.49) Status:Active Unknown Family Member Name Dates Details Family history of hypertensi on: Mother, Father, Grandfather(V17.49, Z82.49) Status:Active Family history of thyroid di sease: Mother(V18.19, Z83.49) Status:Active Family history of myocardial infarction: Grandfather(V17.3, Z82.49) Status:Active Unknown Family Member Name Dates Details Family history of hypertensi on: Mother, Father, Grandfather(V17.49, Z82.49) Status:Active Family history of thyroid di sease: Mother(V18.19, Z83.49) Status:Active Family history of myocardial infarction: Grandfather(V17.3, Z82.49) Status:Active Unknown Family Member Name Dates Details Family history of hypertensi on: Mother, Father, Grandfather(V17.49, Z82.49) Status:Active Family history of thyroid di sease: Mother(V18.19, Z83.49) Status:Active Family history of myocardial infarction: Grandfather(V17.3, Z82.49) Status:Active Unknown Family Member Name Dates Details Family history of hypertensi on: Mother, Father, Grandfather(V17.49, Z82.49) Status:Active Family history of thyroid di sease: Mother(V18.19, Z83.49) Status:Active Family history of myocardial infarction: Grandfather(V17.3, Z82.49) Status:Active Unknown Family Member Name Dates Details Family history of hypertensi on: Mother, Father, Grandfather(V17.49, Z82.49) Status:Active Family history of thyroid di sease: Mother(V18.19, Z83.49) Status:Active Family history of myocardial infarction: Grandfather(V17.3, Z82.49) Status:Active Relationship Condition Age at Onset Recorded Date/T soledad Not Specified Hypertension Unknown grandfather Myocardial infarction Unknown Family Member Condition Father Alive Mother Alive Advance Directives No Advanced Directives Records FoundDocuments on File Type Date Recorded Patient Gifted Teacher Expl anation Advance Directives and Living Will Documents on File Type Date Recorded Patient Gifted Teacher Expl anation Advance Directives and Livin g Will 02/10/2019 3:48 PM Documents on File Type Date Recorded Patient Gifted Teacher Expl anation Advance Directives and Livin g Will 02/10/2019 3:48 PM Advance Directive Response Recorded Date/ Time Living Will No April 29 11:04am Power of Recycle Coordinator No April 29 023 11:04am Advance Directive Response Recorded Date/ Time Living Will No November 30, 2023 5:52am Power of Recycle Coordinator No November 29 24 5:52am Advance Directive Response Recorded Date/ Time Living Will No October 01 10:19am Do you have a Healthcare Power of Recycle Coordinator? No October 01, 2024 10:19am History of Present Illness * Canelo Beltre MD - 11/27/2018 5:08 PM EDT Dictation on: 11/27/2018 5:09 PM by: CANELO BELTRE [[id number]] in this encounter* Soheila Colmenares, PT - 01/07/2019 4:00 PM EDT [facility] [place] OUTPATIENT REHABILITATION Evaluation Today's Date 01/07/2019 Patient Name: Shruti Turner Date of : 1990 Case Name: Therapy S/P ACL repair Functional Diagnosis: SNOMED CT(R) 1. S/P ACL repair HISTORY OF RECONSTRUCTION OF ANTERIOR CRUCIATE LIGAMENT TEAR Clinical Information: Subjective Referring Diagnosis: S/P ACL repair History of Present Illness Surgery Date: 12/19/2018 Days Post-Op: 19 Chief Complaint/ Mechanism of Injury: Patient had a patellar autograph ACL repair on 12-19-18. Patient has 2 freire puppies and on August 11 her dogs were running and hit her and she fell over theside of her couch and heard a pop and she cried a lot. Patient had no complications post- surgery. Previous Treatment for this condition: Surgery Prior treatment effectiveness: moderate Previous Imaging: X-ray Status: improving Pain Scale: Average Pain: 2/10 (dull; stiff in the morning) Pain at highest: 5/10 (dull) Aggravating factors: dogs running into her; wlaking with crutches for too long; pulling leg to get into the car Easing factors: ice Functional Status Functional Limitations: limited mobility, recent decline in level of ADL and standing Premorbid Functional Level: Patient reported Current Functional Level: None Daily activity scale: active Prior level of function: very active Sleep Assessment Sleep disturbance: no Sleep Disturbance (getting better) Red Flags: None Barriers to Care: None Fall risk screening Fallen 2 or more times in the last 12 months: No Injured as a result of a fall in the last 12 months: No Personal Goals: Be able to walk, be able to get her knee straight again and back to normal Mushroom hunting, hiking, kayak, fishing, camping, walking her dogs, gardening Social History 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, 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; [employer] Home environment: house Jainism, social, or cultural considerations to be made aware of before starting treatment: No Hip Right Hip Right Hip WFL Left Hip Muscle Strength: Flexion: 4- Abduction: 4- Knee Right Knee Right Knee WFL Left Knee Tenderness: medial hamstring and patellar tendon Range of Motion: Flexion Active: 94 Passive: 101 Extension Active: 0 Muscle Strength Flexion: 3- Extension: 3 Minimal swelling around incision, incision dry and healing well Ankle/Foot Right Ankle/Foot Right Ankle/Foot WFL Left Ankle/Foot Muscle Strength: DorsiFlexion: 5 Plantar Flexion: 5 Treatments: Physical Therapy Exercise Log - 01/07/19 4249 OTHER Notes Soheila, 09/21; 4-4:40 Vitals Advance per protocol Therapeutic Exercise (15264) Intervention Heel slides NV Parameters HS curls NV Intervention Gastroc/Soleus Stretch NV Parameters 4-way hip with brace (minus SLR) NV Intervention Shuttle Squat/Wall sits NV (90-30 degrees) Parameters Mini squats NV Additional Exercises Add more exercises? Yes Modalities Modalities Electrical Stim- Attended Parameters Quadriceps activation with e-stim; potentially trial in prone first NV PT Treatment Times Total Treatment Time 40 Treatment Plan: Frequency of Visits: twice per week Duration: 6 weeks Interventions: Therapeutic Exercise, Neuromuscular Re-Education, Manual Therapy, Therapeutic/ Functional Activities, Gait Training, Self Care, Hot/Cold Pack, Electrical Stimulation, Ultrasound, Iontophoresis and Vasopneumatic Rehab Potential: excellent Goals: Physical Therapy Ortho Goals: 1. Patient reports their primary goal is to be able to walk normal again. 2. Patient will safely, correctly, and independently demonstrate the ability to perform a progressive HEP to achieve maximal rehabilitation potential and prevent this condition from recurring. 3. Patient will demonstrate a proper quadriceps contraction in order to demonstrate a SLR without Ext lag. 4. Patient will demonstrate 120 degrees of knee flexion in order to walk with proper knee flexion. 5. Patient will demonstrate 5/5 quadricep strength in order to be able to walk with gait for 20 minutes. 6. Patient will demonstrate 5/5 hip ABD strength in order to be able to balance on one leg for greater than 10 seconds B. IE date: 01/07/2019 Progress report due: 02/18/19 Recert due: visit # 12 Patient Education provided: Education on patient diagnosis, physical therapist POC, and HEP to begin until next visit. Clinical Impression: Patient would benefit from skilled physical therapy in order to be able to increase R knee ROM, increase strength, improve neuromuscular control, increase muscle mobility, and improve joint stabilization in order to return to normal ADLs. Soheila Colmenares PT State License, [id number] documented in this encounter* Dori Moya, DIRECTOR OF [facility] - 01/10/2019 4:45 PM EDT [facility] [place] OUTPATIENT REHABIL[facility]ATION DAILY TREATMENT NOTE Today's Date 01/10/2019 Patient Name: Shruti Turner Date of : 1990 Current Visit #: 2 Authorized Visits: 30 Case Name: Therapy S/P ACL repair History: Pre-Treatment Pain Scale: 2 Symptoms: gradually improved Functional Diagnosis: SNOMED CT(R) 1. S/P ACL repair HISTORY OF RECONSTRUCTION OF ANTERIOR CRUCIATE LIGAMENT TEAR Clinical Information: Subjective: Reports she was moving around more yesterday and her knee has been more sore. Returns to On January 21.She has 25 visits for therapy. Objective AAROM flexion 105 degrees. Treatments: Physical Therapy Exercise Log - 01/10/19 1717 OTHER Notes Dori 10/22 4:45-5: Vitals Advance per protocol Therapeutic Exercise (46975) Intervention Heel slides x20 Parameters HS curls YTB x20 Intervention Gastroc/Soleus Stretch seated x3 20 Parameters 4-way hip with brace (minus SLR) NV Intervention Shuttle Squat/Wall sits NV (90-30 degrees) Parameters Mini squats NV Additional Exercises Add more exercises? Yes Modalities Modalities Vasopneumatic Treatment Parameters 10' 34 degrees med. PT Treatment Times Therex Total Time 30 Modalities Total Time 10 Direct Treatment Time 40 Total Treatment Time 40 Goals: Physical Therapy Ortho Goals: 1. Patient reports their primary goal is to be able to walk normal again. 2. Patient will safely, correctly, and independently demonstrate the ability to perform a progressive HEP to achieve maximal rehabilitation potential and prevent this condition from recurring. 3. Patient will demonstrate a proper quadriceps contraction in order to demonstrate a SLR without Ext lag. 4. Patient will demonstrate 120 degrees of knee flexion in order to walk with proper knee flexion. 5. Patient will demonstrate 5/5 quadricep strength in order to be able to walk with gait for 20 minutes. 6. Patient will demonstrate 5/5 hip ABD strength in order to be able to balance on one leg for greater than 10 seconds B. IE date: 01/07/2019 Progress report due: 02/18/19 Recert due: visit # 12 Patient Education: Quality of movement with patient demonstrated understanding. Post-Treatment Pain Scale: 2 Assessment: Patient had an expected response to treatment. Ambulates with crutches and immobilizer. Skilled Intervention demonstrated by modifications of treatment per exercise log including increased load and safety interventions per exercise log. Progress towards goals as expected. Plan for Next Visit: Treatment Visit with focus on balance Dori Moya PTA STATE LICENSE, [id number] documented in this encounter* Soheila Colmenares, PT - 01/16/2019 11:30 AM EDT [facility] [place] OUTPATIENT REHABILITATION DAILY TREATMENT NOTE Today's Date 01/16/2019 Patient Name: Shruti Turner Date of : 1990 Current Visit #: 4 Authorized Visits: 30 Case Name: Therapy S/P ACL repair History: Pre-Treatment Pain Scale: 1 Symptoms: gradually improved Functional Diagnosis: SNOMED CT(R) 1. S/P ACL repair HISTORY OF RECONSTRUCTION OF ANTERIOR CRUCIATE LIGAMENT TEAR Clinical Information: Subjective: Patient reports her dogs tore up her knee brace and she has carefully been ambulating with her crutches and no brace. Patient reports she will be getting a brace from the Internet. Physicla therapist referred patient to local shop who had a used ACL brace, patient picked up brace and PTfitted patient for brace. Objective: focused on quad contraction Treatments: Physical Therapy Exercise Log - 01/16/19 1204 OTHER Notes Soheila 12/20; 11:30-12:15 Vitals Advance per protocol Therapeutic Exercise ([id number]) Intervention Heel slides x20 Parameters HS curls YTB Intervention Gastroc/Soleus Stretch seated Parameters 4-way hip with brace (minus SLR) NV Intervention Shuttle Squat/Wall sits NV (90-30 degrees) Parameters Mini squats NV Intervention Supine SLR Parameters brace education and set-up 10' Intervention nustep lvl1 , 5 min seat 12 Neuro Re-Ed ([id number]) Intervention QS with NMESQ 06/19 (on/off) 15' Parameters Attempted QS without NMESQ feedback with variying other feedback 10' Manual Therapy (72367) Intervention kinesion tape to L patella (pulled laterally) 5' Additional Exercises Add more exercises? Yes Modalities Modalities Vasopneumatic Treatment Parameters 10' 34 degrees low (decreesed from Med due to discomfort) PT Treatment Times Therex Total Time 10 Neuro Re-Ed Total Time 25 Manual Therapy Total Time 5 Modalities Total Time 10 Direct Treatment Time 50 Total Treatment Time 60 Goals: Physical Therapy Ortho Goals: 1. Patient reports their primary goal is to be able to walk normal again. 2. Patient will safely, correctly, and independently demonstrate the ability to perform a progressive HEP to achieve maximal rehabilitation potential and prevent this condition from recurring. 3. Patient will demonstrate a proper quadriceps contraction in order to demonstrate a SLR without Ext lag. 4. Patient will demonstrate 120 degrees of knee flexion in order to walk with proper knee flexion. 5. Patient will demonstrate 5/5 quadricep strength in order to be able to walk with gait for 20 minutes. 6. Patient will demonstrate 5/5 hip ABD strength in order to be able to balance on one leg for greater than 10 seconds B. IE date: 01/07/2019 Progress report due: 02/18/19 Recert due: visit # 12 Patient Education: Quality of movement and HEP Modification with patient verbalized understanding. Post-Treatment Pain Scale: 1 Assessment: Patient had an expected response to treatment.. Patient demonstrate patellar mal-tracking during during extension with heel slides that causes crepitus and increased discomfort after several sets. Patient has decreased pain after kinesio tape is applied to improve patellar tracking. Patient bought a new ACL brace and PT helped fit brace to patient. Brace knee flexion was stopped at 110 degrees. Patient is unable to demonstrate proper quad contraction without use of e-stim unit. PT stated patient is allowed to use SPC during ambulation in order to continue giving extra support to the knee during ambulation while patient continues to work on increasing quad strength. Skilled Intervention demonstrated by modifications of treatment per exercise log including increased load and assessment of patient's response and safety interventions per exercise log. Progress towards goals as expected. Plan for Next Visit: Treatment Visit with focus on increasing quad contraction. Soheila Colmenares PT State License, [id number] documented in this encounter* Dori Moya, DIRECTOR OF [facility] - 01/22/2019 4:00 PM EDT [facility] [place] OUTPATIENT REHABILITATION DAILY TREATMENT NOTE Today's Date 01/22/2019 Patient Name: Shruti Turner Date of : 1990 Current Visit #: 6 Authorized Visits: 30 Case Name: Therapy S/P ACL repair History: Pre-Treatment Pain Scale: 2 Symptoms: gradually improved Functional Diagnosis: SNOMED CT(R) 1. S/P ACL repair HISTORY OF RECONSTRUCTION OF ANTERIOR CRUCIATE LIGAMENT TEAR Clinical Information: Subjective: She's getting around pretty well with 1 crutch. Objective Initiated Monegasque E-stim for muscle re- education. Treatments: Physical Therapy Exercise Log - 01/22/19 1729 OTHER Notes Dori 02/19; 4:00-4:45 Vitals Advance per protocol Therapeutic Exercise (74655) Intervention Heel slides 10x10 Parameters HS curls YTB 2x10 Intervention Gastroc/Soleus Stretch seated Intervention Supine SLR x10 Parameters Seated HS stretch 20x3 Intervention scifit lv 1 8' Parameters Quad sets x10 Neuro Re-Ed (15157) Intervention QS with Monegasque 10' 1050 Additional Exercises Add more exercises? Yes PT Treatment Times Therex Total Time 28 Neuro Re-Ed Total Time 12 Manual Therapy Total Time -- Direct Treatment Time 40 Total Treatment Time 40 Goals: Physical Therapy Ortho Goals: 1. Patient reports their primary goal is to be able to walk normal again. 2. Patient will safely, correctly, and independently demonstrate the ability to perform a progressive HEP to achieve maximal rehabilitation potential and prevent this condition from recurring. 3. Patient will demonstrate a proper quadriceps contraction in order to demonstrate a SLR without Ext lag. 4. Patient will demonstrate 120 degrees of knee flexion in order to walk with proper knee flexion. 5. Patient will demonstrate 5/5 quadricep strength in order to be able to walk with gait for 20 minutes. 6. Patient will demonstrate 5/5 hip ABD strength in order to be able to balance on one leg for greater than 10 seconds B. IE date: 01/07/2019 Progress report due: 02/18/19 Recert due: visit # 12 Patient Education: Quality of movement with patient demonstrated understanding. Post-Treatment Pain Scale: 2 Assessment: Patient had an expected response to treatment. Skilled Intervention demonstrated by modifications of treatment per exercise log including increased intensity and safety interventions per exercise log. Progress towards goals as expected. Plan for Next Visit: Treatment Visit with focus on ROM and strength Dori Moya PTA STATE LICENSE, [id number] documented in this encounter* DarrianSabinaSoheila, PT - 01/27/2019 4:00 PM EDT [facility] [place] OUTPATIENT REHABILITATION DAILY TREATMENT NOTE Today's Date 01/27/2019 Patient Name: Shruti Turner Date of : 1990 Current Visit #: 7 Authorized Visits: 30 Case Name: Therapy S/P ACL repair History: Pre-Treatment Pain Scale: 3 Symptoms: gradually improved Functional Diagnosis: SNOMED CT(R) 1. S/P ACL repair HISTORY OF RECONSTRUCTION OF ANTERIOR CRUCIATE LIGAMENT TEAR Clinical Information: Subjective: Patient reports her knee is a little sore today due to not using the crutch the past couple days. Patient reports she feels like she is getting stronger and the leg is getting better. Objective: Worked on HS and quadriceps muscle mobility Treatments: Physical Therapy Exercise Log - 01/27/19 1604 OTHER Notes Soheila 03/21; 4:00-4:45 Vitals Advance per protocol Therapeutic Exercise (47070) Intervention Heel slides Parameters HS curls YTB Intervention Gastroc/Soleus Stretch seated Parameters HEP 4' Intervention Supine SLR Parameters Seated HS stretch Intervention scifit lv 1 8' Parameters Quad sets x10 Intervention Quad stretch 20x3 Parameters HS PNF 10x5 L Neuro Re-Ed (44367) Intervention QS with Monegasque 8' 5/5 Manual Therapy (47878) Intervention STM L HS, cupping static and dynamic 6' Parameters L quad STM pin/stretch and the stick 5' Additional Exercises Add more exercises? Yes PT Treatment Times Therex Total Time 26 Neuro Re-Ed Total Time 6 Manual Therapy Total Time 11 Direct Treatment Time 43 Total Treatment Time 45 Goals: Physical Therapy Ortho Goals: 1. Patient reports their primary goal is to be able to walk normal again. 2. Patient will safely, correctly, and independently demonstrate the ability to perform a progressive HEP to achieve maximal rehabilitation potential and prevent this condition from recurring. 3. Patient will demonstrate a proper quadriceps contraction in order to demonstrate a SLR without Ext lag. 4. Patient will demonstrate 120 degrees of knee flexion in order to walk with proper knee flexion. 5. Patient will demonstrate 5/5 quadricep strength in order to be able to walk with gait for 20 minutes. 6. Patient will demonstrate 5/5 hip ABD strength in order to be able to balance on one leg for greater than 10 seconds B. IE date: 01/07/2019 Progress report due: 02/18/19 Recert due: visit # 12 Patient Education: Quality of movement and Verbal HEP with patient demonstrated understanding. Post-Treatment Pain Scale: 2 Assessment: Patient had an expected response to treatment.Patient continues to demonstrate greater HS activation compared to quad activation during QS. Patient demonstrates decreased HS/Quad facilitation after STM to L HS and quadriceps. Skilled Intervention demonstrated by modifications of treatment per exercise log including increased load, increased intensity and assessment of patient's response and safety interventions per exercise log. Progress towards goals as expected. Plan for Next Visit: Treatment Visit with focus on increasing quad strength and neuromuscular control. Soheila Colmenares PT State License, [id number] documented in this encounter* Soheila Colmenares, GORDON - 01/27/2019 4:00 PM EDT [facility] [place] OUTPATIENT REHABILITATION DAILY TREATMENT NOTE Today's Date 01/27/2019 Patient Name: Shruti Turner Date of : 1990 Current Visit #: 7 Authorized Visits: 30 Case Name: Therapy S/P ACL repair History: Pre-Treatment Pain Scale: 3 Symptoms: gradually improved Functional Diagnosis: SNOMED CT(R) 1. S/P ACL repair HISTORY OF RECONSTRUCTION OF ANTERIOR CRUCIATE LIGAMENT TEAR Clinical Information: Subjective: Patient reports her knee is a little sore today due to not using the crutch the past couple days. Patient reports she feels like she is getting stronger and the leg is getting better. Objective: Worked on HS and quadriceps muscle mobility Treatments: Physical Therapy Exercise Log - 01/27/19 1604 OTHER Notes Soheila 03/21; 4:00-4:45 Vitals Advance per protocol Therapeutic Exercise ([id number]) Intervention Heel slides Parameters HS curls YTB Intervention Gastroc/Soleus Stretch seated Parameters HEP 4' Intervention Supine SLR Parameters Seated HS stretch Intervention scifit lv 1 8' Parameters Quad sets x10 Intervention Quad stretch 20x3 Parameters HS PNF 10x5 L Neuro Re-Ed (59744) Intervention QS with Monegasque 8' 5/5 Manual Therapy (02245) Intervention STM L HS, cupping static and dynamic 6' Parameters L quad STM pin/stretch and the stick 5' Additional Exercises Add more exercises? Yes PT Treatment Times Therex Total Time 26 Neuro Re-Ed Total Time 6 Manual Therapy Total Time 11 Direct Treatment Time 43 Total Treatment Time 45 Goals: Physical Therapy Ortho Goals: 1. Patient reports their primary goal is to be able to walk normal again. 2. Patient will safely, correctly, and independently demonstrate the ability to perform a progressive HEP to achieve maximal rehabilitation potential and prevent this condition from recurring. 3. Patient will demonstrate a proper quadriceps contraction in order to demonstrate a SLR without Ext lag. 4. Patient will demonstrate 120 degrees of knee flexion in order to walk with proper knee flexion. 5. Patient will demonstrate 5/5 quadricep strength in order to be able to walk with gait for 20 minutes. 6. Patient will demonstrate 5/5 hip ABD strength in order to be able to balance on one leg for greater than 10 seconds B. IE date: 01/07/2019 Progress report due: 02/18/19 Recert due: visit # 12 Patient Education: Quality of movement and Verbal HEP with patient demonstrated understanding. Post-Treatment Pain Scale: 2 Assessment: Patient had an expected response to treatment.Patient continues to demonstrate greater HS activation compared to quad activation during QS. Patient demonstrates decreased HS/Quad facilitation after STM to L HS and quadriceps. Skilled Intervention demonstrated by modifications of treatment per exercise log including increased load, increased intensity and assessment of patient's response and safety interventions per exercise log. Progress towards goals as expected. Plan for Next Visit: Treatment Visit with focus on increasing quad strength and neuromuscular control. Soheila Colmenares PT State License, [id number] documented in this encounter* Soheila Colmenares, PT - 02/10/2019 4:00 PM EDT [facility] [place] OUTPATIENT REHABILITATION DAILY TREATMENT NOTE Today's Date 02/10/2019 Patient Name: Shruti Turner Date of : 1990 Current Visit #: 10 Authorized Visits: 30 Case Name: Therapy S/P ACL repair History: Pre-Treatment Pain Scale: 2 Symptoms: gradually improved Functional Diagnosis: SNOMED CT(R) 1. S/P ACL repair HISTORY OF RECONSTRUCTION OF ANTERIOR CRUCIATE LIGAMENT TEAR Clinical Information: Subjective: Patient reports she helped put in a garden this weekend and her knee is a little sore, but not too bad overall. Patient states the other brace was too small and did not fit properly. Patient states she attempted to walk her dog over the weekend and it did not go very well. She was not injured, but did not feel comfortable with the dog pulling on the leash. Patient states she needs to get a little stronger before she tries to walk him again. Patient demonstrates some increased valgusduring exercises that corrects with manual cue. Plan is to continue physical therapy for 2 times per week for 3 additional weeks and then drop to one time per week for 4 weeks for a total of 10 additional visits in order to continue increasing Knee ROM, neuromuscular control, strength, proprioception, and muscle mobility. Objective: Knee flexion ROM: 127 Continued increased HS facilitation Treatments: Physical Therapy Exercise Log - 02/10/19 1605 OTHER Precautions/Contraindications savanah has already used 02/06 appointments in pre-hab Notes Soheila 06/21; 4:00-4:45 Vitals Advance per protocol Therapeutic Exercise ([id number]) Intervention scifit lv 1 8' Parameters Mimic dog walking at next visit (Walking with TT at next visit) Intervention Shuttle squat BLE 37# x20 GTB aorund knees Parameters Shuttle squat SLE L 18# x20 Intervention Wall squats GTB around knees Parameters LBWs RTB 2 laps 20' each Intervention Lateral rocker board x 20 each Parameters BAPS board L side Intervention HS stool scoots across length of clinic with therapist holding on Parameters prone knee extension hang off table 2' Manual Therapy (95626) Intervention STM L HS 5' Parameters L HS pin/stretch Additional Exercises Add more exercises? Yes Modalities Modalities Vasopneumatic Treatment Parameters 10' med, 34 degrees PT Treatment Times Therex Total Time 30 Manual Therapy Total Time 5 Modalities Total Time 10 Direct Treatment Time 45 Total Treatment Time 45 Goals: Physical Therapy Ortho Goals: 1. Patient reports their primary goal is to be able to walk normal again. 2. Patient will safely, correctly, and independently demonstrate the ability to perform a progressive HEP to achieve maximal rehabilitation potential and prevent this condition from recurring. 3. Patient will demonstrate a proper quadriceps contraction in order to demonstrate a SLR without Ext lag. 4. Patient will demonstrate 120 degrees of knee flexion in order to walk with proper knee flexion. 5. Patient will demonstrate 5/5 quadricep strength in order to be able to walk with gait for 20 minutes. 6. Patient will demonstrate 5/5 hip ABD strength in order to be able to balance on one leg for greater than 10 seconds B. IE date: 01/07/2019 Progress report due: 04/04/19 Recert due: visit # 22 Patient Education: Quality of movement and HEP Modification with patient verbalized understanding. Post-Treatment Pain Scale: 2 Assessment: Patient had an expected response to treatment. Skilled Intervention demonstrated by modifications of treatment per exercise log including increased load, increased intensity and assessment of patient's response and safety interventions per exercise log. Progress towards goals as expected. Plan for Next Visit: Treatment Visit with focus on increasing knee mobility, knee neuromuscular control, and proprioception. Soheila Colmenares PT State License, [id number] documented in this encounter* Soheila Colmenares PT - 02/12/2019 4:00 PM EDT [facility] [place] OUTPATIENT REHABILITATION DAILY TREATMENT NOTE Today's Date 02/12/2019 Patient Name: Shruti Turner Date of : 1990 Current Visit #: 11 Authorized Visits: 30 Case Name: Therapy S/P ACL repair History: Pre-Treatment Pain Scale: 5 Symptoms: stabilized Functional Diagnosis: SNOMED CT(R) 1. S/P ACL repair HISTORY OF RECONSTRUCTION OF ANTERIOR CRUCIATE LIGAMENT TEAR Clinical Information: Subjective: Patient reports her knee and HS are very sore today and she thinks it might be due to working in the garden over the weekend. Patient asked primary therapist if it was okay to return to riding a bicycle. Objective: Focused on HS STM and L hip joint mobility. Treatments: Physical Therapy Exercise Log - 02/12/19 1734 OTHER Precautions/Contraindications savanah has already used 02/06 appointments in pre-hab Notes Soheila 07/22; 4:00-4:40 (concurrent 15 minutes Vitals Advance per protocol Therapeutic Exercise (63182) Intervention scifit lv 1 8' (Upright bike at NV) Parameters Mimic dog walking at next visit (Walking with TT at next visit) Intervention Shuttle squat BLE 37# x20 GTB aorund knees Parameters Shuttle squat SLE L 25#x20 Intervention Wall squats GTB around knees Parameters LBWs RTB Intervention Lateral rocker board Parameters BAPS board L side Intervention HS stool scoots across length of clinic with therapist holding on Parameters prone knee extension hang off table Intervention Heel raises x20 Parameters toe raises x20 Manual Therapy (04416) Intervention STM L HS 5' Parameters L hip anterior frog leg joint mobs; inferior mobs 5' Additional Exercises Add more exercises? Yes Modalities Modalities Vasopneumatic Treatment Parameters 10' med, 34 degrees PT Treatment Times Therex Total Time 8 Manual Therapy Total Time 10 Modalities Total Time 10 Direct Treatment Time 28 Total Treatment Time 40 Goals: Physical Therapy Ortho Goals: 1. Patient reports their primary goal is to be able to walk normal again. 2. Patient will safely, correctly, and independently demonstrate the ability to perform a progressive HEP to achieve maximal rehabilitation potential and prevent this condition from recurring. 3. Patient will demonstrate a proper quadriceps contraction in order to demonstrate a SLR without Ext lag. 4. Patient will demonstrate 120 degrees of knee flexion in order to walk with proper knee flexion. 5. Patient will demonstrate 5/5 quadricep strength in order to be able to walk with gait for 20 minutes. 6. Patient will demonstrate 5/5 hip ABD strength in order to be able to balance on one leg for greater than 10 seconds B. IE date: 01/07/2019 Progress report due: 04/04/19 Recert due: visit # 22 Patient Education: Quality of movement, Verbal HEP and HEP Modification with patient verbalized understanding. Post-Treatment Pain Scale: 4 Assessment: Patient had an expected response to treatment. Patient demonstrate increased hip inferior hypomobility that is contributing to her decreased hip mobilization and increased hamstring facilitation. Educated patient on backing off this weekend. Trailed patient on upright bicycle and patient was able to complete full revolution, educated her on being safe with riding bike outdoors. Skilled Intervention demonstrated by modifications of treatment per exercise log including increased load, increased mobility and assessment of patient's response and safety interventions per exercise log. Progress towards goals as expected. Plan for Next Visit: Treatment Visit with focus on increasing L hip joint and musculature mobility. Soheila Colmenares PT State License, [id number] documented in this encounter* Canelo Beltre MD - 02/18/2019 2:13 PM EDT Dictation on: 02/18/2019 2:16 PM by: CANELO BELTRE [[id number]] documented in this encounter* Dori Moya, DIRECTOR OF [facility] - 02/24/2019 3:15 PM EDT [facility] [place] OUTPATIENT REHABILITATION DAILY TREATMENT NOTE Today's Date 02/25/2019 Patient Name: Shruti Turner Date of : 1990 Current Visit #: 2 Authorized Visits: 30 Case Name: Therapy S/P ACL repair History: Pre-Treatment Pain Scale: 3 Symptoms: gradually improved Functional Diagnosis: SNOMED CT(R) 1. S/P ACL repair HISTORY OF RECONSTRUCTION OF ANTERIOR CRUCIATE LIGAMENT TEAR Clinical Information: Subjective: Reports her knee is very sore today. [facility] Objective Moderate antalgic gait on L during stance phase without brace. Mild swelling along incision area. Moderate quad weakness with heel taps. Treatments: Physical Therapy Exercise Log - 02/25/19 0659 OTHER Precautions/Contraindications claryet has already used 02/06 appointments in pre-hab Notes Dori 22/08 2:30-3:32 (pt has new script) Vitals Advance per protocol Therapeutic Exercise (05769) Intervention Upright bike lv 1, 8' seat height 4 Intervention Shuttle squat BLE 37# x20 GTB aorund knees Parameters Shuttle squat SLE L 25#x20 Intervention Mini squats GTB around knees x10 Parameters LBWs GTB, along rail 3 laps Intervention Heel taps 2 x10 Intervention Heel raises x20 Parameters toe raises x20 Intervention Quad set with towel roll under knee 5x20 Additional Exercises Add more exercises? Yes Modalities Modalities Electrical Stim - Unattended Parameters 12' Monegasque PT Treatment Times Therex Total Time 30 Modalities Total Time 12 Direct Treatment Time 42 Total Treatment Time 52 Goals: Physical Therapy Ortho Goals: 1. Patient reports their primary goal is to be able to walk normal again. 2. Patient will safely, correctly, and independently demonstrate the ability to perform a progressive HEP to achieve maximal rehabilitation potential and prevent this condition from recurring. 3. Patient will demonstrate a proper quadriceps contraction in order to demonstrate a SLR without Ext lag. 4. Patient will demonstrate 120 degrees of knee flexion in order to walk with proper knee flexion. 5. Patient will demonstrate 5/5 quadricep strength in order to be able to walk with gait for 20 minutes. 6. Patient will demonstrate 5/5 hip ABD strength in order to be able to balance on one leg for greater than 10 seconds B. IE date: 01/07/2019 Progress report due: 04/04/19 Recert due: visit # 22 Patient Education: Quality of movement with patient demonstrated understanding. Post-Treatment Pain Scale: 3 Assessment: Patient had an expected response to treatment. Skilled Intervention demonstrated by modifications of treatment per exercise log including increased load and safety interventions per exercise log. Progress towards goals as expected. Plan for Next Visit: Treatment Visit with focus on strength Dori Moya PTA STATE LICENSE, [id number] documented in this encounter* Dori Moya PTA - 03/04/2019 2:30 PM EDT [facility] [place] OUTPATIENT REHABILITATION DAILY TREATMENT NOTE Today's Date 03/04/2019 Patient Name: Shruti Turner Date of : 1990 Current Visit #: 12 Authorized Visits: 30 Case Name: Therapy S/P ACL repair History: Pre-Treatment Pain Scale: 2 Symptoms: gradually improved Functional Diagnosis: SNOMED CT(R) 1. S/P ACL repair HISTORY OF RECONSTRUCTION OF ANTERIOR CRUCIATE LIGAMENT TEAR Clinical Information: Subjective: Reports her knee is doing ok today but still has a little pain. Objective Fair (-) eccentric control with SLR. Held on E-stim and cupping this visit. Treatments: Physical Therapy Exercise Log - 03/04/19 1434 OTHER Precautions/Contraindications savanah has already used 02/06 appointments in pre-hab Notes Dori 2:30- Vitals Advance per protocol Therapeutic Exercise (41155) Intervention Upright bike lv 1, 8' seat height 4 Intervention Shuttle squat BLE 37# GTB aorund knees Parameters Shuttle squat SLE L 25# Intervention Mini squats GTB around knees Parameters LBWs GTB, along rail Intervention Heel taps 2 x10 Intervention SLR with foot tilted laterally x20 Parameters Bridge with marching x20 Intervention Heel raises Parameters toe raises Intervention Quad set with towel roll under knee 5x20 Manual Therapy (36599) Intervention Cupping to L HS, static and dynamic to distal HS insertion and proximal calf origin 10' Parameters L hip mobilization inferior and lateral 5' Additional Exercises Add more exercises? Yes Modalities Modalities -- Parameters -- PT Treatment Times Therex Total Time 35 Manual Therapy Total Time 10 Direct Treatment Time 45 Total Treatment Time 45 Goals: Physical Therapy Ortho Goals: 1. Patient reports their primary goal is to be able to walk normal again. 2. Patient will safely, correctly, and independently demonstrate the ability to perform a progressive HEP to achieve maximal rehabilitation potential and prevent this condition from recurring. 3. Patient will demonstrate a proper quadriceps contraction in order to demonstrate a SLR without Ext lag. 4. Patient will demonstrate 120 degrees of knee flexion in order to walk with proper knee flexion. 5. Patient will demonstrate 5/5 quadricep strength in order to be able to walk with gait for 20 minutes. 6. Patient will demonstrate 5/5 hip ABD strength in order to be able to balance on one leg for greater than 10 seconds B. IE date: 01/07/2019 Progress report due: 04/04/19 Recert due: visit # 22 Patient Education: Quality of movement with patient demonstrated understanding. Post-Treatment Pain Scale: 1 Assessment: Patient had an expected response to treatment. Skilled Intervention demonstrated by modifications of treatment per exercise log including increased intensity and safety interventions per exercise log. Progress towards goals as expected. Plan for Next Visit: Treatment Visit with focus on quad strength Dori Moya PTA STATE LICENSE, [id number] documented in this encounter* Dori Moya PTA - 03/04/2019 2:30 PM EDT [facility] [place] OUTPATIENT REHABILITATION DAILY TREATMENT NOTE Today's Date 03/04/2019 Patient Name: Shruti Turner Date of : 1990 Current Visit #: 12 Authorized Visits: 30 Case Name: Therapy S/P ACL repair History: Pre-Treatment Pain Scale: 2 Symptoms: gradually improved Functional Diagnosis: SNOMED CT(R) 1. S/P ACL repair HISTORY OF RECONSTRUCTION OF ANTERIOR CRUCIATE LIGAMENT TEAR Clinical Information: Subjective: Reports her knee is doing ok today but still has a little pain. Objective Fair (-) eccentric control with SLR. Held on E-stim and cupping this visit. Treatments: Physical Therapy Exercise Log - 03/04/19 1434 OTHER Precautions/Contraindications savanah has already used / appointments in pre-hab Notes Dori 2:30- Vitals Advance per protocol Therapeutic Exercise (43827) Intervention Upright bike lv 1, 8' seat height 4 Intervention Shuttle squat BLE 37# GTB aorund knees Parameters Shuttle squat SLE L 25# Intervention Mini squats GTB around knees Parameters LBWs GTB, along rail Intervention Heel taps 2 x10 Intervention SLR with foot tilted laterally x20 Parameters Bridge with marching x20 Intervention Heel raises Parameters toe raises Intervention Quad set with towel roll under knee 5x20 Manual Therapy (80606) Intervention Cupping to L HS, static and dynamic to distal HS insertion and proximal calf origin 10' Parameters L hip mobilization inferior and lateral 5' Additional Exercises Add more exercises? Yes Modalities Modalities -- Parameters -- PT Treatment Times Therex Total Time 35 Manual Therapy Total Time 10 Direct Treatment Time 45 Total Treatment Time 45 Goals: Physical Therapy Ortho Goals: 1. Patient reports their primary goal is to be able to walk normal again. 2. Patient will safely, correctly, and independently demonstrate the ability to perform a progressive HEP to achieve maximal rehabilitation potential and prevent this condition from recurring. 3. Patient will demonstrate a proper quadriceps contraction in order to demonstrate a SLR without Ext lag. 4. Patient will demonstrate 120 degrees of knee flexion in order to walk with proper knee flexion. 5. Patient will demonstrate 5/5 quadricep strength in order to be able to walk with gait for 20 minutes. 6. Patient will demonstrate 5/5 hip ABD strength in order to be able to balance on one leg for greater than 10 seconds B. IE date: 01/07/2019 Progress report due: 04/04/19 Recert due: visit # 22 Patient Education: Quality of movement with patient demonstrated understanding. Post-Treatment Pain Scale: 1 Assessment: Patient had an expected response to treatment. Skilled Intervention demonstrated by modifications of treatment per exercise log including increased intensity and safety interventions per exercise log. Progress towards goals as expected. Plan for Next Visit: Treatment Visit with focus on quad strength Dori Moya PTA STATE LICENSE, [id number] documented in this encounter* Dori Moya, DIRECTOR OF [facility] - 04/04/2019 4:00 PM EDT [facility] [place] OUTPATIENT REHABILITATION DAILY TREATMENT NOTE Today's Date 04/04/2019 Patient Name: Shruti Turner Date of : 1990 Current Visit #: 5 Authorized Visits: 30 Case Name: Therapy S/P ACL repair History: Pre-Treatment Pain Scale: 2 Symptoms: gradually improved Functional Diagnosis: SNOMED CT(R) 1. S/P ACL repair HISTORY OF RECONSTRUCTION OF ANTERIOR CRUCIATE LIGAMENT TEAR Clinical Information: Subjective: Reports her knee is sore and not wearing her brace anymore.She notices not being able to come down steps properly. Objective Deficits with extension continue. Improved extension following cupping and overpressure. Treatments: Physical Therapy Exercise Log - 04/04/19 1639 OTHER Precautions/Contraindications savanah has already used 02/06 appointments in pre-hab Notes 3:55-4:40 Therapeutic Exercise (79244) Intervention Upright bike lv 1, 8' seat height 4 Parameters 6 step ups, 2x10 Intervention Shuttle squat BLE 37# GTB aorund knees, 2x10 Parameters Shuttle squat SLE L 25#, 2x10 Intervention Heel taps 2 x10 Intervention SLR with foot tilted laterally x20 Parameters Bridge with marching x20 Parameters leg extension into SB 30 x 4 single leg 10x10 BLE Manual Therapy ([id number]) Intervention Cupping to L HS, static and dynamic to distal HS insertion and proximal calf origin,8' Modalities Modalities Vasopneumatic Treatment Parameters 34 for 10 min. Med. PT Treatment Times Therex Total Time 25 Manual Therapy Total Time 10 Modalities Total Time 10 Direct Treatment Time 45 Total Treatment Time 45 Goals: Physical Therapy Ortho Goals: 1. Patient reports their primary goal is to be able to walk normal again. 2. Patient will safely, correctly, and independently demonstrate the ability to perform a progressive HEP to achieve maximal rehabilitation potential and prevent this condition from recurring. 3. Patient will demonstrate a proper quadriceps contraction in order to demonstrate a SLR without Ext lag. 4. Patient will demonstrate 120 degrees of knee flexion in order to walk with proper knee flexion. 5. Patient will demonstrate 5/5 quadricep strength in order to be able to walk with gait for 20 minutes. 6. Patient will demonstrate 5/5 hip ABD strength in order to be able to balance on one leg for greater than 10 seconds B. IE date: 01/07/2019 Progress report due: 04/04/19 Recert due: visit # 22 Patient Education: Quality of movement with patient demonstrated understanding. Post-Treatment Pain Scale: 1 Assessment: Patient had an expected response to treatment. Skilled Intervention demonstrated by modifications of treatment per exercise log including increased load and safety interventions per exercise log. Progress towards goals as expected. Plan for Next Visit: Treatment Visit with focus on balance and descending steps Dori Moya PTA STATE LICENSE, [id number] documented in this encounter* Elina Vásquez PTA - 04/11/2019 3:15 PM EDT [facility] [place] OUTPATIENT REHABILITATION DAILY TREATMENT NOTE Today's Date 04/11/2019 Patient Name: Shruti Turner Date of : 1990 Current Visit #: 6 Authorized Visits: 30 Case Name: Therapy S/P ACL repair History: Pre-Treatment Pain Scale: 1 Symptoms: gradually improved Functional Diagnosis: SNOMED CT(R) 1. S/P ACL repair HISTORY OF RECONSTRUCTION OF ANTERIOR CRUCIATE LIGAMENT TEAR Clinical Information: Subjective: Pt reports knee has been feeling pretty good but continues to have the stiffness behindher knee no matter how much she stretches. Objective Continued with exercises per log for increased LE strength and mobility for improved ambulation andoverall functional mobility. Treatments: Physical Therapy Exercise Log - 04/11/19 1507 OTHER Notes 3:07-355 Therapeutic Exercise (00990) Intervention Upright bike lv 1, 8' seat height 4 Parameters 6 step ups, 2x10 Intervention Shuttle squat BLE 37# GTB aorund knees, 2x10 Parameters Shuttle squat SLE L 25#, 2x10 Intervention Heel taps 2 x10 Intervention SLR with foot tilted laterally x20 Parameters leg extension into SB 30 x 4 single leg 10x10 BLE Manual Therapy (71411) Intervention Cupping to L HS, static and dynamic to distal HS insertion and proximal calf origin,8' Modalities Modalities Vasopneumatic Treatment Parameters 34 for 10 min. Med. PT Treatment Times Therex Total Time 30 Manual Therapy Total Time 8 Direct Treatment Time 38 Total Treatment Time 48 Goals: Physical Therapy Ortho Goals: 1. Patient reports their primary goal is to be able to walk normal again. 2. Patient will safely, correctly, and independently demonstrate the ability to perform a progressive HEP to achieve maximal rehabilitation potential and prevent this condition from recurring. 3. Patient will demonstrate a proper quadriceps contraction in order to demonstrate a SLR without Ext lag. 4. Patient will demonstrate 120 degrees of knee flexion in order to walk with proper knee flexion. 5. Patient will demonstrate 5/5 quadricep strength in order to be able to walk with gait for 20 minutes. 6. Patient will demonstrate 5/5 hip ABD strength in order to be able to balance on one leg for greater than 10 seconds B. IE date: 01/07/2019 Progress report due: 04/04/19 Recert due: visit # 22 Patient Education: HEP Adherence with patient verbalized understanding. Post-Treatment Pain Scale: 1 Assessment: Patient had an expected response to treatment. Focused on eccentric step down with stepup and overs with pt having fair control due to weakness and some discomfort. Pt able to improve after x5 reps and verbal cueing. Skilled Intervention demonstrated by modifications of treatment per exercise log including safety interventions per exercise log. Progress towards goals as expected. Plan for Next Visit: Treatment Visit with focus on increased LE strength and mobility Elina Vásquez PTA STATE LICENSE, [id number] documented in this encounter* Soheila Colmenares, PT - 04/22/2019 10:41 AM EDT Progress for Recertification sent to physician documented in this encounter* Soheila Colmenares, PT - 04/22/2019 3:15 PM EDT [facility] [place] OUTPATIENT REHABILITATION DAILY TREATMENT NOTE Today's Date 04/22/2019 Patient Name: Shruti Turner Date of : 1990 Current Visit #: 8 Authorized Visits: 30 Case Name: Therapy S/P ACL repair History: Pre-Treatment Pain Scale: 1 Symptoms: gradually improved Functional Diagnosis: SNOMED CT(R) 1. S/P ACL repair HISTORY OF RECONSTRUCTION OF ANTERIOR CRUCIATE LIGAMENT TEAR Clinical Information: Subjective: Patient reports she continues to have tightness in her posterior knee and difficulty with straightening out her knee. Objective: Start of session knee extension: 3 End of session knee extension:0 Treatments: Physical Therapy Exercise Log - 04/22/19 0700 OTHER Notes 3:20-4:00 Therapeutic Exercise (04405) Intervention Upright bike lv 1, 2' seat height 4 Intervention retro walk with focus on knee ext, laps Intervention Heel taps Manual Therapy (59285) Intervention Cupping to L HS, static and dynamic to distal HS insertion and proximal calf origin,10' Parameters Deep tissue palpation and mobilization 10' Modalities Modalities Electrical Stim - Unattended Parameters 12' 4HZ, intensity increased per patient tolerance PT Treatment Times Manual Therapy Total Time 20 Modalities Total Time 12 Direct Treatment Time 32 Total Treatment Time 40 Goals: Physical Therapy Ortho Goals: 1. Patient reports their primary goal is to be able to walk normal again. ( Not met, continues to be unable to achieve proper heel strike) 2. Patient will safely, correctly, and independently demonstrate the ability to perform a progressive HEP to achieve maximal rehabilitation potential and prevent this condition from recurring.( MET 8-8-19) 3. Patient will demonstrate a proper quadriceps contraction in order to demonstrate a SLR without Ext lag.( MET 8-8-19) 4. Patient will demonstrate 120 degrees of knee flexion in order to walk with proper knee flexion.(MET 8-8-19) 5. Patient will demonstrate 5/5 quadricep strength in order to be able to walk with gait for 20 minutes. (Not met 4+/5) 6. Patient will demonstrate 5/5 hip ABD strength in order to be able to balance on one leg for greater than 10 seconds B. ( MET 8-8-19) IE date: 01/07/2019 Progress report due: 05/16/19 Recert due: visit # 28 Patient Education: Quality of movement, Verbal HEP and HEP Modification with patient verbalized understanding. Post-Treatment Pain Scale: 0 Assessment: Patient had an expected response to treatment. Written and verbal consent were obtainedfrom patient before starting treatment. Patient was placed in prone on the table with arms in a comfortable position per patient preference. Six needles were placed into posterior HS from insertion down to semitendinosus (one was placed by biceps femoris, but was removed due to patient discomfort) at a depth of 45 mm. Manual twisting needle manipulation was performed at all levels until patient noticed increased muscle tightening. Then electrical stimulation was placed between 2 needles at semi-tendinosis and 2 needles near HS orgion with the current running parallel with the muscle fibers. Electrical stimulation was used for 20 minutes with increases of intensity every 4 minutes per patient tolerance. Highest electrical stimulation achieved was 4. [place] with then mechanically stimulated via twisting and left in for 2 additional minutes before being taken out. There were no bleeding at removal of needles. During treatment patient reported some discomfort. After treatment and cuppingpatient states her knee feels the best it ever has and that she can actually get it straight again.Patient reports some increased discomfort and getting hot after needle was placed by biceps femoristendon. Needle was promptly removed and patient was given water. After needle was removed patient states she felt normal and was okay to continue treatment. Patient had no adverse effects for the rest of the session and was told to call the physical therapist if they notices any difficulties or anynew changes. Skilled Intervention demonstrated by modifications of treatment per exercise log including increased mobility, assessment of patient's response and modalities as indicated and safety interventions per exercise log. Progress towards goals as expected. Plan for Next Visit: Treatment Visit with focus on DN as needed and STM to HS insertions. Soheila Colmenares PT State License, [id number] documented in this encounter* Canelo Beltre MD - 06/17/2019 3:41 PM EDT Dictation on: 06/17/2019 3:42 PM by: CANELO BELTRE [[id number]] documented in this encounter* Iris Kelly PTA - 01/13/2019 11:30 AM EDT [facility] [place] OUTPATIENT REHABILITATION DAILY TREATMENT NOTE Today's Date 01/13/2019 Patient Name: Shruti Turner Date of : 1990 Current Visit #: 3 Authorized Visits: 30 Case Name: Therapy S/P ACL repair History: Pre-Treatment Pain Scale: 2 Symptoms: stabilized Functional Diagnosis: SNOMED CT(R) 1. S/P ACL repair HISTORY OF RECONSTRUCTION OF ANTERIOR CRUCIATE LIGAMENT TEAR Clinical Information: Subjective: Pt states she went mushroom hunting with her crutches, states she was a little sore butno too much. Pt to see Manuela January 21. Objective Treatments: Physical Therapy Exercise Log - 01/13/19 1130 OTHER Notes Iris Rivera PTA 11:30 Vitals Advance per protocol Therapeutic Exercise (04866) Intervention Heel slides x20 Parameters HS curls YTB x20 Intervention Gastroc/Soleus Stretch seated x3 20 Parameters 4-way hip with brace (minus SLR) NV Intervention Shuttle Squat/Wall sits NV (90-30 degrees) Parameters Mini squats NV Intervention Supine SLR - assisted Parameters LAQ - x 15 assisted Intervention nustep lvl1 , 5 min seat 12 Additional Exercises Add more exercises? Yes Modalities Modalities Vasopneumatic Treatment Parameters 10' 34 degrees low (decreesed from Med due to discomfort) PT Treatment Times Therex Total Time 25 Modalities Total Time 10 Direct Treatment Time 35 Total Treatment Time 42 Goals: Physical Therapy Ortho Goals: 1. Patient reports their primary goal is to be able to walk normal again. 2. Patient will safely, correctly, and independently demonstrate the ability to perform a progressive HEP to achieve maximal rehabilitation potential and prevent this condition from recurring. 3. Patient will demonstrate a proper quadriceps contraction in order to demonstrate a SLR without Ext lag. 4. Patient will demonstrate 120 degrees of knee flexion in order to walk with proper knee flexion. 5. Patient will demonstrate 5/5 quadricep strength in order to be able to walk with gait for 20 minutes. 6. Patient will demonstrate 5/5 hip ABD strength in order to be able to balance on one leg for greater than 10 seconds B. IE date: 01/07/2019 Progress report due: 02/18/19 Recert due: visit # 12 Patient Education: Verbal HEP with patient demonstrated understanding. Post-Treatment Pain Scale: 2 Assessment: Patient had an expected response to treatment. Skilled Intervention demonstrated by modifications of treatment per exercise log including increased load and safety interventions per exercise log. Progress towards goals as expected. Plan for Next Visit: Treatment Visit with focus on focused on light strenthening and AROM for functional daily activities Iris Kelly PTA STATE LICENSE, [id number] documented in this encounter* Elina Vásquez PTA - 03/21/2019 4:00 PM EDT [facility] [place] OUTPATIENT REHABILITATION DAILY TREATMENT NOTE Today's Date 03/21/2019 Patient Name: Shruti Turner Date of : 1990 Current Visit #: 4 Authorized Visits: 30 Case Name: Therapy S/P ACL repair History: Pre-Treatment Pain Scale: 3 Symptoms: gradually improved Functional Diagnosis: SNOMED CT(R) 1. S/P ACL repair HISTORY OF RECONSTRUCTION OF ANTERIOR CRUCIATE LIGAMENT TEAR Clinical Information: Subjective: Pt states she saw Dr. Beltre on Sunday and is now able to do light running. She states she is having more pain than normal today due to walking around a carnival a lot yesterday. Objective Pt performed exercises per log with focus on increased LE strength. Held progressions today due to pt having increased pain after a lot of walking from previous day. Treatments: Physical Therapy Exercise Log - 03/21/19 1554 OTHER Precautions/Contraindications savanah has already used 02/06 appointments in pre-hab Notes 3:53-435 Therapeutic Exercise (95372) Intervention Upright bike lv 1, 8' seat height 4 Parameters 6 step ups, 2x10 Intervention Shuttle squat BLE 37# GTB aorund knees, 2x10 Parameters Shuttle squat SLE L 25#, 2x10 Parameters LBWs GTB, along rail, 3 laps Intervention Heel taps 2 x10 Intervention SLR with foot tilted laterally x20 Parameters Bridge with marching x20 Manual Therapy (78761) Intervention Cupping to L HS, static and dynamic to distal HS insertion and proximal calf origin,8' PT Treatment Times Therex Total Time 34 Manual Therapy Total Time 8 Direct Treatment Time 42 Total Treatment Time 42 Goals: Physical Therapy Ortho Goals: 1. Patient reports their primary goal is to be able to walk normal again. 2. Patient will safely, correctly, and independently demonstrate the ability to perform a progressive HEP to achieve maximal rehabilitation potential and prevent this condition from recurring. 3. Patient will demonstrate a proper quadriceps contraction in order to demonstrate a SLR without Ext lag. 4. Patient will demonstrate 120 degrees of knee flexion in order to walk with proper knee flexion. 5. Patient will demonstrate 5/5 quadricep strength in order to be able to walk with gait for 20 minutes. 6. Patient will demonstrate 5/5 hip ABD strength in order to be able to balance on one leg for greater than 10 seconds B. IE date: 01/07/2019 Progress report due: 04/04/19 Recert due: visit # 22 Patient Education: HEP Adherence with patient verbalized understanding. Post-Treatment Pain Scale: 3 Assessment: Patient had an expected response to treatment. Pt able to perform exercises without c/oincreased pain but demos muscle fatigue with heel taps and SLR. Skilled Intervention demonstrated by modifications of treatment per exercise log including safety interventions per exercise log. Progress towards goals as expected. Plan for Next Visit: Treatment Visit with focus on increased LE strength Elina Vásquez PTA STATE LICENSE, [id number] documented in this encounter* Aiyana Hernandez PTA - 03/10/2019 2:30 PM EDT [facility] [place] OUTPATIENT REHABILITATION DAILY TREATMENT NOTE Today's Date 03/10/2019 Patient Name: Shruti Turner Date of : 1990 Current Visit #: 14 Authorized Visits: 30 Case Name: Therapy S/P ACL repair History: Pre-Treatment Pain Scale: 2 Symptoms: stabilized Functional Diagnosis: SNOMED CT(R) 1. S/P ACL repair HISTORY OF RECONSTRUCTION OF ANTERIOR CRUCIATE LIGAMENT TEAR Clinical Information: Subjective: Pt reports normal pain and sx's with no changes since last session Objective Pt demod good quad control with ex's, Was quick to fatigue with step ex's and stated she felt like jello Treatments: Physical Therapy Exercise Log - 03/10/19 1431 OTHER Precautions/Contraindications savanah has already used 02/06 appointments in pre-hab Notes 1430- Vitals Advance per protocol Therapeutic Exercise (31632) Intervention Upright bike lv 1, 8' seat height 4 Parameters 4 step ups, x10 Intervention Shuttle squat BLE 37# GTB aorund knees, 2x10 Parameters Shuttle squat SLE L 25#, 2x10 Intervention Mini squats GTB around knees Parameters LBWs GTB, along rail, 3 laps Intervention Heel taps 2 x10 Intervention SLR with foot tilted laterally x20 Parameters Bridge with marching x20 Intervention Quad set with towel roll under knee 5x20 Manual Therapy (83505) Intervention Cupping to L HS, static and dynamic to distal HS insertion and proximal calf origin 5' Goals: Physical Therapy Ortho Goals: 1. Patient reports their primary goal is to be able to walk normal again. 2. Patient will safely, correctly, and independently demonstrate the ability to perform a progressive HEP to achieve maximal rehabilitation potential and prevent this condition from recurring. 3. Patient will demonstrate a proper quadriceps contraction in order to demonstrate a SLR without Ext lag. 4. Patient will demonstrate 120 degrees of knee flexion in order to walk with proper knee flexion. 5. Patient will demonstrate 5/5 quadricep strength in order to be able to walk with gait for 20 minutes. 6. Patient will demonstrate 5/5 hip ABD strength in order to be able to balance on one leg for greater than 10 seconds B. IE date: 01/07/2019 Progress report due: 04/04/19 Recert due: visit # 22 Patient Education: Verbal HEP with patient verbalized understanding. Post-Treatment Pain Scale: 0 Assessment: Patient had an expected response to treatment. Skilled Intervention demonstrated by modifications of treatment per exercise log including increased mobility and increased volume and safety interventions per exercise log. Progress towards goals as expected. Plan for Next Visit: Treatment Visit with focus on increase strewngth and ROM, increase control of valgus fault Aiyana Hernandez PTA STATE LICENSE, [id number] documented in this encounter* Elina Vásquez PTA - 04/17/2019 3:15 PM EDT [facility] [place] OUTPATIENT REHABILITATION DAILY TREATMENT NOTE Today's Date 04/17/2019 Patient Name: Shruti Turner Date of : 1990 Current Visit #: 7 Authorized Visits: 30 Case Name: Therapy S/P ACL repair History: Pre-Treatment Pain Scale: 1 Symptoms: gradually improved Functional Diagnosis: SNOMED CT(R) 1. S/P ACL repair HISTORY OF RECONSTRUCTION OF ANTERIOR CRUCIATE LIGAMENT TEAR Clinical Information: Subjective: Pt reports she is happy with her progress but still wants to be able to go down stairs easier and have her knee be straighter. Objective Hip Left Hip Muscle Strength: Abduction: 5 Knee Left Knee Range of Motion: Flexion Active: 122 Extension Active: 5 Muscle Strength Flexion: 4+ Extension: 4+ L knee ext after stretches= 1 degree Treatments: Physical Therapy Exercise Log - 04/17/19 1517 OTHER Notes 3:15-403 Therapeutic Exercise (71181) Intervention Upright bike lv 1, 8' seat height 4 Intervention retro walk with focus on knee ext, 2 laps Intervention Heel taps 4 x10 Manual Therapy (11137) Intervention Cupping to L HS, static and dynamic to distal HS insertion and proximal calf origin,8' Parameters PNF HS, 10x8 Modalities Modalities Vasopneumatic Treatment Parameters 34 for 10 min. Med. PT Treatment Times Therex Total Time 28 Manual Therapy Total Time 10 Direct Treatment Time 38 Total Treatment Time 48 Goals: Physical Therapy Ortho Goals: 1. Patient reports their primary goal is to be able to walk normal again. 2. Patient will safely, correctly, and independently demonstrate the ability to perform a progressive HEP to achieve maximal rehabilitation potential and prevent this condition from recurring. 3. Patient will demonstrate a proper quadriceps contraction in order to demonstrate a SLR without Ext lag. 4. Patient will demonstrate 120 degrees of knee flexion in order to walk with proper knee flexion. 5. Patient will demonstrate 5/5 quadricep strength in order to be able to walk with gait for 20 minutes. 6. Patient will demonstrate 5/5 hip ABD strength in order to be able to balance on one leg for greater than 10 seconds B. IE date: 01/07/2019 Progress report due: 04/04/19 Recert due: visit # 22 Patient Education: Quality of movement and HEP Adherence with patient verbalized understanding. Post-Treatment Pain Scale: 1 Assessment: Patient had an expected response to treatment. Improvement in knee extension after stretches and STM performed. Verbal cues for knee extension with retro walks with good carry over. Pt reports relief after stretches and cupping performed. Skilled Intervention demonstrated by modifications of treatment per exercise log including increased mobility and increased volume and safety interventions per exercise log. Progress towards goals as expected. Plan for Next Visit: Treatment Visit with focus on increased knee extenstion and stair negotiation Elina Vásquez PTA STATE LICENSE, [id number] documented in this encounter* Soheila Colmenares, PT - 02/05/2019 4:00 PM EDT [facility] [place] OUTPATIENT REHABILITATION DAILY TREATMENT NOTE Today's Date 02/05/2019 Patient Name: Shruti Turner Date of : 1990 Current Visit #: 9 Authorized Visits: 30 Case Name: Therapy S/P ACL repair History: Pre-Treatment Pain Scale: 1 Symptoms: gradually improved Functional Diagnosis: SNOMED CT(R) 1. S/P ACL repair HISTORY OF RECONSTRUCTION OF ANTERIOR CRUCIATE LIGAMENT TEAR Clinical Information: Subjective: Patient states her knee is usually an annoying sore, but she has been able to return towork. Patient states her L HS has been tightening up. Objective: Due to patient demonstrating increased quad strength began to incorporate more closed kinetic chain strengthening and neuromuscular control exercises. Treatments: Physical Therapy Exercise Log - 02/05/19 3417 OTHER Notes Soheila 05/22; 4:00-4:50 Vitals Advance per protocol Therapeutic Exercise (04554) Intervention scifit lv 1 8' Intervention Shuttle squat BLE 37# x20 GTB aorund knees Parameters Shuttle squat SLE L 18# x20 Intervention Wall squats GTB around knees x5 Parameters LBWs RTB 2 laps 20' each Intervention Lateral rocker board x 20 each Parameters BAPS board L side 4 ways x10 each Intervention HS stool scoots 2.5 laps across length of clinic with therapist holding on Manual Therapy (05093) Intervention STM L HS, Parameters L HS pin/stretch Additional Exercises Add more exercises? Yes Modalities Modalities Vasopneumatic Treatment Parameters 10' med, 34 degrees PT Treatment Times Therex Total Time 35 Modalities Total Time 10 Direct Treatment Time 45 Total Treatment Time 50 Goals: Physical Therapy Ortho Goals: 1. Patient reports their primary goal is to be able to walk normal again. 2. Patient will safely, correctly, and independently demonstrate the ability to perform a progressive HEP to achieve maximal rehabilitation potential and prevent this condition from recurring. 3. Patient will demonstrate a proper quadriceps contraction in order to demonstrate a SLR without Ext lag. 4. Patient will demonstrate 120 degrees of knee flexion in order to walk with proper knee flexion. 5. Patient will demonstrate 5/5 quadricep strength in order to be able to walk with gait for 20 minutes. 6. Patient will demonstrate 5/5 hip ABD strength in order to be able to balance on one leg for greater than 10 seconds B. IE date: 01/07/2019 Progress report due: 02/18/19 Recert due: visit # 12 Patient Education: Quality of movement and HEP Modification with patient verbalized understanding. Post-Treatment Pain Scale: 1 Assessment: Patient had an expected response to treatment. Patient demonstrates R lean during wall squats due to having decreased confidence with WB on L LE. Patient continues to demonstrate decreased knee flexion during ambulation due to having decreased confidence with weight being placed on L LE. Patient continues to demonstrate increased L Quad strength with WFL HS co-contraction. Skilled Intervention demonstrated by modifications of treatment per exercise log including increased load, increased intensity, increased volume and assessment of patient's response and safety interventions per exercise log. Progress towards goals as expected. Plan for Next Visit: Treatment Visit with focus on increasing quad and hip abd strength and neuromuscular control. Soheila Colmenares PT State License, [id number] documented in this encounter* Soheila Colmenares PT - 01/20/2019 4:00 PM EDT [facility] [place] OUTPATIENT REHABILITATION DAILY TREATMENT NOTE Today's Date 01/20/2019 Patient Name: Shruti Turner Date of : 1990 Current Visit #: 5 Authorized Visits: 30 Case Name: Therapy S/P ACL repair History: Pre-Treatment Pain Scale: 3 Symptoms: gradually improved Functional Diagnosis: SNOMED CT(R) 1. S/P ACL repair HISTORY OF RECONSTRUCTION OF ANTERIOR CRUCIATE LIGAMENT TEAR Clinical Information: Subjective: Patient reports she is able to walk around the house without her crutches as of last night without any increases in knee pain. Patient reports her quad contraction is getting easier. Objective: Continued to focus on neuromuscular control of R quadricep Knee Flexion: 126 Treatments: Physical Therapy Exercise Log - 01/20/19 1614 OTHER Notes Soheila 01/19; 4:00-4:45 Vitals Advance per protocol Therapeutic Exercise (34225) Intervention Heel slides 10x10 Parameters HS curls YTB Intervention Gastroc/Soleus Stretch seated Parameters 4-way hip with brace (minus SLR) NV Intervention Shuttle Squat/Wall sits NV (90-30 degrees) Parameters Mini squats NV Intervention Supine SLR Parameters Seated HS stretch 20x3 Intervention -- Neuro Re-Ed (15775) Intervention QS with NMESQ 5/5 (on/off) 10' Parameters Attempted QS without NMESQ feedback with variying other feedback 8' Manual Therapy (24534) Intervention STM cupping to R HS insertion 8' Additional Exercises Add more exercises? Yes Modalities Modalities Vasopneumatic Treatment Parameters 10' 34 degrees low (decreesed from Med due to discomfort) PT Treatment Times Therex Total Time 8 Neuro Re-Ed Total Time 18 Manual Therapy Total Time 8 Modalities Total Time 10 Direct Treatment Time 44 Total Treatment Time 45 Goals: Physical Therapy Ortho Goals: 1. Patient reports their primary goal is to be able to walk normal again. 2. Patient will safely, correctly, and independently demonstrate the ability to perform a progressive HEP to achieve maximal rehabilitation potential and prevent this condition from recurring. 3. Patient will demonstrate a proper quadriceps contraction in order to demonstrate a SLR without Ext lag. 4. Patient will demonstrate 120 degrees of knee flexion in order to walk with proper knee flexion. 5. Patient will demonstrate 5/5 quadricep strength in order to be able to walk with gait for 20 minutes. 6. Patient will demonstrate 5/5 hip ABD strength in order to be able to balance on one leg for greater than 10 seconds B. IE date: 01/07/2019 Progress report due: 02/18/19 Recert due: visit # 12 Patient Education: Quality of movement and HEP Modification with patient verbalized understanding. Post-Treatment Pain Scale: 3 Assessment: Patient had an expected response to treatment. Patient continues to demonstrate improvements in QS facilitation, but has some greater HS bias than quad activation. Patient has increased facilitation of R HS that improves after static and dynamic cupping to her HS. Patient demonstrates intact skin after cupping with some mild bruising. Skilled Intervention demonstrated by modifications of treatment per exercise log including increased load, increased cueing, increased mobility and assessment of patient's response and safety interventions per exercise log. Progress towards goals as expected. Plan for Next Visit: Treatment Visit with focus on QS activiation as needed and hip/knee neuromuscular control. Soheila Colmenares PT State License, [id number] documented in this encounter* Daniel Mcnally, DIRECTOR OF [facility] - 02/21/2019 2:30 PM EDT [facility] OUTPATIENT REHABILITATION DAILY TREATMENT NOTE Today's Date 02/21/2019 Patient Name: Shruti Turner Date of : 1990 Current Visit #: 1 Authorized Visits: 30 Case Name: No linked episodes History: Pre-Treatment Pain Scale: 1 Symptoms: gradually improved Functional Diagnosis: SNOMED CT(R) 1. S/P ACL repair HISTORY OF RECONSTRUCTION OF ANTERIOR CRUCIATE LIGAMENT TEAR Clinical Information: Subjective: Pt states the Dr said she can ride her bike and run next month and also doesn't have tokeep wearing her brace but pt says if her dogs are being wild that she keeps her brace on. Pt reports she is sore after cupping but feels it is helping. Pt brought up in session that her dogs ran into her this week, the same way they did when she initially tore it. Objective Completed gentle IASTM to L HS. Focused on L quad strengthening and educated pt on appropriate recreational activities at this point in her recovery. Completed vaso at end of session to decrease sxs. Educated pt on importance of quad and hip strengthening for HEP. Treatments: Physical Therapy Exercise Log - 02/21/19 1429 OTHER Precautions/Contraindications savanah has already used 02/06 appointments in pre-hab Notes Daniel 08/21 2:30-3:32 (pt has new script) Vitals Advance per protocol Therapeutic Exercise (58974) Intervention Upright bike lv 1, 8' seat height 4 Parameters -- Intervention Shuttle squat BLE 37# x20 GTB aorund knees Parameters Shuttle squat SLE L 25#x20 Intervention Mini squats GTB around knees x10 Parameters LBWs GTB, along rail 3 laps Intervention -- Parameters -- Intervention -- Parameters -- Intervention Heel raises x20 Parameters toe raises x20 Intervention Quad set with towel roll under knee 5x20 Manual Therapy (14617) Intervention Dynamic Cupping to L HS and lateral knee 8' (gentle to moderate cupping) Parameters -- Additional Exercises Add more exercises? Yes Modalities Modalities Vasopneumatic Treatment Parameters 10' med, 34 degrees PT Treatment Times Therex Total Time 35 Manual Therapy Total Time 8 Modalities Total Time 10 Direct Treatment Time 53 Total Treatment Time 62 Goals: Physical Therapy Ortho Goals: 1. Patient reports their primary goal is to be able to walk normal again. 2. Patient will safely, correctly, and independently demonstrate the ability to perform a progressive HEP to achieve maximal rehabilitation potential and prevent this condition from recurring. 3. Patient will demonstrate a proper quadriceps contraction in order to demonstrate a SLR without Ext lag. 4. Patient will demonstrate 120 degrees of knee flexion in order to walk with proper knee flexion. 5. Patient will demonstrate 5/5 quadricep strength in order to be able to walk with gait for 20 minutes. 6. Patient will demonstrate 5/5 hip ABD strength in order to be able to balance on one leg for greater than 10 seconds B. IE date: 01/07/2019 Progress report due: 04/04/19 Recert due: visit # 22 Patient Education: Verbal HEP with patient demonstrated understanding and verbalized understanding. Post-Treatment Pain Scale: 1 Assessment: Patient had an expected response to treatment. Pt will be 10 weeks post op on Sunday02/24/19. Pt had episode of knee giving out when walking through the clinic, pt did not fall but used her RLE to compensate. Pt reports only minor pain 1-2/10 Completed lateral ambulation along rail for assistance. Pt lost her form on last rep of mini squats despite cues, secondary to fatigue. Pt displays visible instability in L knee when ambulating and during exercises. Educated pt on importance of HEP for quad and hip stability. Also educated pt on not favoring RLE as much. Skilled Intervention demonstrated by modifications of treatment per exercise log including assessment of patient's response and safety interventions per exercise log. Progress towards goals as expected. Plan for Next Visit: Assess response. Focus on L quad/hip strength. Daniel Mcnally PTA STATE LICENSE, [id number] documented in this encounter* Elina Vásquez PTA - 03/07/2019 2:30 PM EDT [facility] [place] OUTPATIENT REHABILITATION DAILY TREATMENT NOTE Today's Date 03/07/2019 Patient Name: Shruti Turner Date of : 1990 Current Visit #: 13 Authorized Visits: 30 Case Name: Therapy S/P ACL repair History: Pre-Treatment Pain Scale: 2 Symptoms: gradually improved Functional Diagnosis: SNOMED CT(R) 1. S/P ACL repair HISTORY OF RECONSTRUCTION OF ANTERIOR CRUCIATE LIGAMENT TEAR Clinical Information: Subjective: Pt reports she always has some soreness and pain but it's getting better. She states she just feels like she doesn't have the full mobility yet. Objective Pt performed exercises per log for increased LE strength and ROM for functional mobility and improved gait. Treatments: Physical Therapy Exercise Log - 03/07/19 1425 OTHER Precautions/Contraindications savanah has already used / appointments in pre-hab Notes 2:25-310 Vitals Advance per protocol Therapeutic Exercise (40939) Intervention Upright bike lv 1, 8' seat height 4 Parameters 4 step ups, x10 Intervention Shuttle squat BLE 37# GTB aorund knees, 2x10 Parameters Shuttle squat SLE L 25#, 2x10 Intervention Mini squats GTB around knees Parameters LBWs GTB, along rail, 3 laps Intervention Heel taps 2 x10 Intervention SLR with foot tilted laterally x20 Parameters Bridge with marching x20 Intervention Quad set with towel roll under knee 5x20 Manual Therapy (60313) Intervention Cupping to L HS, static and dynamic to distal HS insertion and proximal calf origin 5' PT Treatment Times Therex Total Time 40 Direct Treatment Time 40 Total Treatment Time 45 Goals: Physical Therapy Ortho Goals: 1. Patient reports their primary goal is to be able to walk normal again. 2. Patient will safely, correctly, and independently demonstrate the ability to perform a progressive HEP to achieve maximal rehabilitation potential and prevent this condition from recurring. 3. Patient will demonstrate a proper quadriceps contraction in order to demonstrate a SLR without Ext lag. 4. Patient will demonstrate 120 degrees of knee flexion in order to walk with proper knee flexion. 5. Patient will demonstrate 5/5 quadricep strength in order to be able to walk with gait for 20 minutes. 6. Patient will demonstrate 5/5 hip ABD strength in order to be able to balance on one leg for greater than 10 seconds B. IE date: 01/07/2019 Progress report due: 04/04/19 Recert due: visit # 22 Patient Education: Quality of movement and HEP Adherence with patient verbalized understanding. Post-Treatment Pain Scale: 2 Assessment: Patient had an expected response to treatment. Pt performed 4 step ups with L per pt request due to having stairs at home and wanting to see what it was like using surgical side. Pt ableto perform 4 without pain. Pt presents with quad lag with SLR but able to complete. Skilled Intervention demonstrated by modifications of treatment per exercise log including safety interventions per exercise log. Progress towards goals as expected. Plan for Next Visit: Treatment Visit with focus on increased LE strength and mobility Elina Vásquez PTA STATE LICENSE, [id number] documented in this encounter* Soheila Colmenares, PT - 01/29/2019 4:00 PM EDT [facility] [place] OUTPATIENT REHABILITATION DAILY TREATMENT NOTE Today's Date 01/29/2019 Patient Name: Shruti Turner Date of : 1990 Current Visit #: 8 Authorized Visits: 30 Case Name: Therapy S/P ACL repair History: Pre-Treatment Pain Scale: 1 Symptoms: gradually improved Functional Diagnosis: SNOMED CT(R) 1. S/P ACL repair HISTORY OF RECONSTRUCTION OF ANTERIOR CRUCIATE LIGAMENT TEAR Clinical Information: Subjective: Patient reports her HS has been feeling better over all, but is still a touch sore formthe cupping. Patient states she Objective: Due to patient's improvement in quadricep muscle contraction patient is ready to progress therapeutic exercises. Treatments: Physical Therapy Exercise Log - 01/29/19 7007 OTHER Notes Soheila 04/21; 4:00-4:45 Vitals Advance per protocol Therapeutic Exercise (48638) Intervention Heel slides 10x10 Parameters HS curls YTB Intervention Gastroc/Soleus Stretch seated Parameters Shuttle squat BLE 37# x20 Intervention Shuttle squat SLE L 25# x20 Intervention Supine SLR x12 Parameters Seated HS stretch Intervention scifit lv 1 8' Parameters Quad sets 5x10 Intervention Quad stretch 20x3 Parameters HS PNF 10x5 L Manual Therapy (32958) Intervention STM L HS, 6' Parameters L HS pin/stretch 3' Additional Exercises Add more exercises? Yes Modalities Modalities Vasopneumatic Treatment Parameters 10' med, 34 degrees PT Treatment Times Therex Total Time 25 Manual Therapy Total Time 9 Modalities Total Time 10 Direct Treatment Time 44 Total Treatment Time 45 Goals: Physical Therapy Ortho Goals: 1. Patient reports their primary goal is to be able to walk normal again. 2. Patient will safely, correctly, and independently demonstrate the ability to perform a progressive HEP to achieve maximal rehabilitation potential and prevent this condition from recurring. 3. Patient will demonstrate a proper quadriceps contraction in order to demonstrate a SLR without Ext lag. 4. Patient will demonstrate 120 degrees of knee flexion in order to walk with proper knee flexion. 5. Patient will demonstrate 5/5 quadricep strength in order to be able to walk with gait for 20 minutes. 6. Patient will demonstrate 5/5 hip ABD strength in order to be able to balance on one leg for greater than 10 seconds B. IE date: 01/07/2019 Progress report due: 02/18/19 Recert due: visit # 12 Patient Education: Quality of movement, Verbal HEP and HEP Modification with patient verbalized understanding. Post-Treatment Pain Scale: 1 Assessment: Patient had an expected response to treatment. Patient demonstrates improved quadricepscontraction with minimal HS activation. Patient demonstrates increased quadriceps facilitation on RLE and hip hypomobility that improves after joint mobs and STM. Patient demonstrates some valgus collapse during shuttle squats that improves with a TB cue around her knees. Skilled Intervention demonstrated by modifications of treatment per exercise log including increased load, increased intensity, increased mobility and assessment of patient's response and safety interventions per exercise log. Progress towards goals as expected. Plan for Next Visit: Treatment Visit with focus on progressing quadricep muscle strength and decreasing HS facilitation. Soheila Colmenares PT State License, [id number] documented in this encounter* Dori Moya, DIRECTOR OF [facility] - 05/07/2019 2:30 PM EDT [facility] [place] OUTPATIENT REHABILITATION DAILY TREATMENT NOTE Today's Date 05/07/2019 Patient Name: Shruti Turner Date of : 1990 Current Visit #: 10 Authorized Visits: 30 Case Name: Therapy S/P ACL repair History: Pre-Treatment Pain Scale: 0 Symptoms: gradually improved Functional Diagnosis: 1. S/P ACL repair Clinical Information: Subjective: Reports her knee is improving each day with more strength and ROM. Objective Reviewed HEP and PT will see her in 2 weeks for follow up and see how she's progressing with HEP and strength and ROM. Treatments: Physical Therapy Exercise Log - 05/07/19 1513 OTHER Notes 2:30-3:15 Therapeutic Exercise ([id number]) Intervention Upright bike lv 1, seat height 4 Parameters Standing HS stretch 20x3 Intervention retro walk with focus on knee ext, laps Intervention Heel taps PT Treatment Times Therex Total Time 35 Modalities Total Time 10 Direct Treatment Time 45 Total Treatment Time 45 Goals: Physical Therapy Ortho Goals: 1. Patient reports their primary goal is to be able to walk normal again. ( Not met, continues to be unable to achieve proper heel strike) 2. Patient will safely, correctly, and independently demonstrate the ability to perform a progressive HEP to achieve maximal rehabilitation potential and prevent this condition from recurring.( MET 04-17-19) 3. Patient will demonstrate a proper quadriceps contraction in order to demonstrate a SLR without Ext lag.( MET 04-17-19) 4. Patient will demonstrate 120 degrees of knee flexion in order to walk with proper knee flexion.(MET 04-17-19) 5. Patient will demonstrate 5/5 quadricep strength in order to be able to walk with gait for 20 minutes. (Not met 4+/5) 6. Patient will demonstrate 5/5 hip ABD strength in order to be able to balance on one leg for greater than 10 seconds B. ( MET 04-17-19) IE date: 01/07/2019 Progress report due: 05/16/19 Recert due: visit # 28 Patient Education: Quality of movement with patient demonstrated understanding. Post-Treatment Pain Scale: 0 Assessment: Patient had an expected response to treatment. Skilled Intervention demonstrated by modifications of treatment per exercise log including increased load and safety interventions per exercise log. Progress towards goals as expected. Plan for Next Visit: Treatment Visit with focus on ROM and strength Dori Moya PTA STATE LICENSE, [id number] documented in this encounter* Canelo Beltre MD - 03/18/2019 2:42 PM EDT Dictation on: 03/18/2019 2:43 PM by: CANELO BELTRE [[id number]] documented in this encounter* Soheila Colmenares, PT - 02/27/2019 3:15 PM EDT [facility] [place] OUTPATIENT REHABILITATION DAILY TREATMENT NOTE Today's Date 02/27/2019 Patient Name: Shruti Turner Date of : 1990 Current Visit #: 3 Authorized Visits: 30 Case Name: Therapy S/P ACL repair History: Pre-Treatment Pain Scale: 1 Symptoms: gradually improved Functional Diagnosis: SNOMED CT(R) 1. S/P ACL repair HISTORY OF RECONSTRUCTION OF ANTERIOR CRUCIATE LIGAMENT TEAR Clinical Information: Subjective: Patient reports her knee has been doing better since her dog ran into her and she feelsbetter when walking with th brace currently. Objective: Jorge's and Anterior Drawer - Negative Treatments: Physical Therapy Exercise Log - 02/27/19 1521 OTHER Precautions/Contraindications savanah has already used 02/06 appointments in pre-hab Notes Soheila 3:15-4:00 Vitals Advance per protocol Therapeutic Exercise (91854) Intervention Upright bike lv 1, 8' seat height 4 Intervention Shuttle squat BLE 37# GTB aorund knees Parameters Shuttle squat SLE L 25# Intervention Mini squats GTB around knees Parameters LBWs GTB, along rail Intervention Heel taps 2 x10 Intervention SLR with foot tilted laterally x20 Parameters Bridge with marching x20 Intervention Heel raises Parameters toe raises Intervention Quad set with towel roll under knee 5x20 Manual Therapy (53258) Intervention Cupping to L HS, static and dynamic to distal HS insertion and proximal calf origin 10' Parameters L hip mobilization inferior and lateral 5' Additional Exercises Add more exercises? Yes Modalities Modalities Electrical Stim - Unattended Parameters 10' [place] PT Treatment Times Therex Total Time 15 Manual Therapy Total Time 15 Modalities Total Time 10 Direct Treatment Time 40 Total Treatment Time 45 Goals: Physical Therapy Ortho Goals: 1. Patient reports their primary goal is to be able to walk normal again. 2. Patient will safely, correctly, and independently demonstrate the ability to perform a progressive HEP to achieve maximal rehabilitation potential and prevent this condition from recurring. 3. Patient will demonstrate a proper quadriceps contraction in order to demonstrate a SLR without Ext lag. 4. Patient will demonstrate 120 degrees of knee flexion in order to walk with proper knee flexion. 5. Patient will demonstrate 5/5 quadricep strength in order to be able to walk with gait for 20 minutes. 6. Patient will demonstrate 5/5 hip ABD strength in order to be able to balance on one leg for greater than 10 seconds B. IE date: 01/07/2019 Progress report due: 04/04/19 Recert due: visit # 22 Patient Education: Quality of movement, Verbal HEP and HEP Modification with patient verbalized understanding. Post-Treatment Pain Scale: 1 Assessment: Patient had an expected response to treatment. Patient continues to demonstrate increased facilitation of L HS insertion and gastroc origin that is contributing to her increased difficultly fulling extending her knee. Patient demonstrates decreased neuromuscular control during quad setsthat is contributing to her decreased control during ambulation. Patient reports increased quad fatigue during SLR with foot lateral rotation that is contributing to her decreased endurance during ambulation. Skilled Intervention demonstrated by modifications of treatment per exercise log including increased load, increased intensity and assessment of patient's response and safety interventions per exercise log. Progress towards goals as expected. Plan for Next Visit: Treatment Visit with focus on increasing knee mobility and stabilization. Soheila Colmenares PT State License, [id number] documented in this encounter* Elina Vásquez, DIRECTOR OF [facility]IGHB[facility]HOOD [facility]ICE [facility] - 05/16/2019 1:00 PM EDT [facility] [place] OUTPATIENT REHABILITATION DAILY TREATMENT NOTE Today's Date 05/16/2019 Patient Name: Shruti Turner Date of : 1990 Current Visit #: 11 Authorized Visits: 30 Case Name: Therapy S/P ACL repair History: Pre-Treatment Pain Scale: 0.5 Symptoms: gradually improved Functional Diagnosis: 1. S/P ACL repair Clinical Information: Subjective: Pt reports she has been doing really well with very minimal pain. She states she continues to have some discomfort going down stairs but has seen a lot of improvement in that area. Objective Knee Left Knee Range of Motion: Flexion Active: 122 Extension Active: 1 Muscle Strength Flexion: 5 Extension: 5 Treatments: Physical Therapy Exercise Log - 05/16/19 1304 OTHER Precautions/Contraindications patiet has already used / appointments in pre-hab Notes 100-120 Therapeutic Exercise ([id number]) Intervention Upright bike lv 1, seat height 4 8' Parameters Step ups and overs, 6 2x10 PT Treatment Times Therex Total Time 20 Direct Treatment Time 20 Total Treatment Time 20 Goals: Physical Therapy Ortho Goals: 1. Patient reports their primary goal is to be able to walk normal again. ( Not met, continues to be unable to achieve proper heel strike) 2. Patient will safely, correctly, and independently demonstrate the ability to perform a progressive HEP to achieve maximal rehabilitation potential and prevent this condition from recurring.( MET 04-17-19) 3. Patient will demonstrate a proper quadriceps contraction in order to demonstrate a SLR without Ext lag.( MET 04-17-19) 4. Patient will demonstrate 120 degrees of knee flexion in order to walk with proper knee flexion.(MET 04-17-19) 5. Patient will demonstrate 5/5 quadricep strength in order to be able to walk with gait for 20 minutes. (Not met 4+/5) 6. Patient will demonstrate 5/5 hip ABD strength in order to be able to balance on one leg for greater than 10 seconds B. ( MET 04-17-19) IE date: 01/07/2019 Progress report due: 05/16/19 Recert due: visit # 28 Patient Education: HEP Adherence with patient verbalized understanding. Post-Treatment Pain Scale: 0.5 Assessment: Patient had an expected response to treatment. Pt has met all goals made by PT and is pleased with recovery. She states she does still have some discomfort when descending stairs but has seen a lot of improvement and states pain only goes up to a 1/10 when doing that. Skilled Intervention demonstrated by modifications of treatment per exercise log including assessment of patient's response and safety interventions per exercise log. Progress towards goals: Pt has met all goals made by PT on POC Plan for Next Visit: Discharge Elina Vásquez PTA STATE LICENSE, [id number] documented in this encounter* Canelo Beltre MD - 12/31/2018 4:47 PM EDT Dictation on: 12/31/2018 4:48 PM by: CANELO BELTRE [[email or web address]] documented in this encounter* Canelo Beltre MD - 01/21/2019 2:43 PM EDT Dictation on: 01/21/2019 2:44 PM by: CANELO BELTRE [[id number]] documented in this encounter* Canelo Beltre MD - 10/16/2018 2:45 PM EST 28-year-old seen for followup of her left knee injury. Despite her physical therapy over the past 6weeks, she continues to have pain in her left knee, giving way, popping. Symptoms are primarily medial. She is not happy with it and she wants to know if it can be repaired. She has noted some swelling as well. Physical exam reveals a pleasant female, in no acute distress, thin, well developed, well nourished. Today, she has no knee effusion. She has full range of motion. No medial or lateral instability. She has medial joint line tenderness. Pain with stressing. No definite Jorge's sign or pivot-shift sign. IMPRESSION Left knee pain postinjury with popping, giving way and swelling despite 6 weeks of physical therapyand antiinflammatories. I feel it at this point in time, it is reasonable to get an MRI looking formeniscal or ACL pathology. Will see her back after MRI. in this encounter Assessments Diagnosis Sprain of left knee, unspecified ligament, initial encounter- Primary Diagnosis S/P ACL repair Other postprocedural status Diagnosis S/P ACL repair- Primary Other postprocedural status Diagnosis S/P ACL repair- Primary Other postprocedural status Diagnosis S/P ACL repair- Primary Other postprocedural status Diagnosis S/P ACL repair- Primary Other postprocedural status Diagnosis S/P ACL repair- Primary Other postprocedural status Diagnosis S/P ACL repair- Primary Other postprocedural status Diagnosis S/P ACL repair- Primary Other postprocedural status Diagnosis S/P ACL repair- Primary Other postprocedural status Diagnosis S/P ACL repair- Primary Other postprocedural status Diagnosis S/P ACL repair- Primary Other postprocedural status Diagnosis S/P ACL repair- Primary Other postprocedural status Diagnosis S/P ACL repair Other postprocedural status Diagnosis Anterior cruciate ligament complete tear, left, subsequent encounter- Primary S/P ACL repair Other postprocedural status Diagnosis Sprain of left knee, unspecified ligament, initial encounter- Primary Pain and swelling of left knee Reason for Referral Status Reason Specialty Diagnoses / Procedures Referred By Contact Referred To Contact Authorized Patient Preference Physical Therapy / Rehabilitation Diagnoses S/P ACL repair Canelo Beltre MD [address] [place] [address] [phone] Status Reason Specialty Diagnoses / Procedures Referred By Contact Referred To Contact Authorized Specialty Services Required/Clary ent's Best Interest Physical Therapy / Rehabilitation Diagnoses S/P ACL repair Canelo Beltre MD [address] [place] [address] [facility] [place] [phone] Status Reason Specialty Diagnoses / Procedures Referred By Contact Referred To Contact Authorized Patient Preference Physical Therapy / Rehabilitation Diagnoses S/P ACL repair Canelo Beltre MD [address] [place] [address] Status Reason Specialty Diagnoses / Procedures Referred By Contact Referred To Contact Pending Review Radiology Diagnoses Pain and swelling of left knee Procedures MR Knee Left Without Contrast Canelo Beltre MD [address] [place] [address] Specialty Diagnoses / Procedures Referred By Contac t Referred To Contact [facility] Diagnoses 12 weeks gestation of Sciatica of right side Procedures CONSULT TO PHYSICAL THERAPY PHYSICAL THERAPY EVALUATION HIGH COMPLEX 45 MINS Alana Nava MD [address] [place] [address] [facility] [address] [address] Referral ID Status Reason Start Date Expiration Date Visits Requested Visits Authorized [id number] Pending Review Auto-Generat ed Referral 05/31/2023 05/30/2024 1 1 Specialty Diagnoses / Procedures Referred By Contac t Referred To Contact Orthopedics Diagnoses Acute midline low back pain with right-sided sciatica Procedures CONSULT TO ORTHOPAEDICS OFFICE/OUTPATIENT [facility] 60 MINUTES Margarita Mosley MD [address] [place] [address] Referral ID Status Reason Start Date Expiration Date Visits Requested Visits Authorized [id number] Authorized PCP Requested Referral 4 08/06/2025 1 1 Chief Complaint PT IS A NEW PT HERE TODAY FOR AMENORRHEA. HAS NO CONCERNS. FEELS NAUSEOUS, DENIES VOMITING. MILD CRAMPING, DENIES ANY BLEEDING. HAS BREAST TENDERNESS. LMP: 03/26/2021T IS 18 WEEKS AND HERE TODAY FOR A COLPO. PAP SHOWED ATYPICAL ENDOCERVICAL CELLS, HPV POSITIVE. STATES IS GETTING HEADACHES DAILY.* Pt here for consult; Early GDM * LMP 03/2021 * BS 94 * Last pap 06/24/2021 * Dental Mechanic accepted * Pt here for consult; Early GDM * LMP 03/2021 * BS 94 * Last pap 06/24/2021 * Dental Mechanic accepted PT DELIVERED ON 12/27/2021 AND IS HERE TODAY FOR A B/P CHECK. HAS NO CONCERNS.Pt here for Post Visit (6 WEEK). Patient had a VAGINAL delivery of a MALE nfant on 12/27/21 at 39 WEEKS, infant weighed 5# 15oz. Patient is currently BREAST feeding. Patient would like to discuss control options. Pt IS HAVING post depression. Pt has NOT resumed sexual activity. Pt given Depression Scale. Pt WANTS TO KNOW IF SHE CAN STOP ZOLOFT AND GET BACK ON HER OTHER MEDICATION. ALSO WANTS TO KNOW IF SHE CAN DISCONTINUE BLOOD PRESSURE MEDICATION.Patient is here to review colp results.Patient is here for her yearly exam and pap test. LMP: 02/01/2023. Patient does self breast exams an d has no concerns at this time. Chief Complaint and Reason for Visit Chief Complaint MISCARRIAGE Chief Complaint C SECTION/CESECTION DELIVERY Reason for Visit 39 weeks gestation o f Delivery by elective section Unstable lie of fetus Chief Complaint Admit Date BACK PAIN October 01, 2024 9 :04am BACK RX HERE October 01, 2024 1 :30pm LUMBAR RADICULOPATHY October 02, 2024 3:19pm Chief Complaint Admit Date BACK PT HAS RX May 25, 2025 3:30pm Additional Source Comments INFORMATION SOURCE (unrecogn ized section and content) DATE CREATED AUTHOR 10/29/2018 [facility] DATE CREATED AUTHOR AUTHOR'S ORGANIZ ATION 12/17/2018 [facility] DATE CREATED AUTHOR AUTHOR'S ORGANIZ ATION 06/14/2019 [facility] DATE CREATED AUTHOR AUTHOR'S ORGANIZ ATION [facility] DATE CREATED AUTHOR AUTHOR'S ORGANIZ ATION 04/01/2020 [facility] ([place]) DATE CREATED AUTHOR AUTHOR'S ORGANIZ ATION 01/09/2022 [facility] DATE CREATED AUTHOR AUTHOR'S ORGANIZ ATION 03/21/2023 [employer] DATE CREATED AUTHOR AUTHOR'S ORGANIZ ATION 04/17/2023 [facility] DATE CREATED AUTHOR AUTHOR'S ORGANIZ ATION 12/13/2024 [facility] DATE CREATED AUTHOR AUTHOR'S ORGANIZ ATION 06/20/2025 [facility] DATE CREATED AUTHOR AUTHOR'S ORGANIZ ATION 07/02/2025 [facility] DATE CREATED AUTHOR AUTHOR'S ORGANIZ ATION 07/15/2025 [facility] Reason for Visit (unrecogniz ed section and content) Reason Comments Follow-up Reason Comments Physical Therapy S/P ACL repair Status Reason Specialty Diagnoses / Procedures Referred By Contact Referred To Contact Authorized Patient Preference Physical Therapy / Rehabilitation Diagnoses S/P ACL repair Canelo Beltre MD [address] [id number] [address] [address] [place] [address] [place] [address] Reason Comments Physical Therapy Status Reason Specialty Diagnoses / Procedures Referred By Contact Referred To Contact Authorized Patient Preference Physical Therapy / Rehabilitation Diagnoses S/P ACL repair Canelo Beltre MD [address] [place] [address] [place] [address] [place] [address] Status Reason Specialty Diagnoses / Procedures Referred By Contact Referred To Contact Authorized Patient Preference Physical Therapy / Rehabilitation Diagnoses S/P ACL repair Canelo Beltre MD [address] [place] [address] [facility] [place] [phone] Status Reason Specialty Diagnoses / Procedures Referred By Contact Referred To Contact Authorized Patient Preference Physical Therapy / Rehabilitation Diagnoses S/P ACL repair Canelo Beltre MD [address] [place] [address] [place] [phone] Reason Comments Follow-up Status Reason Specialty Diagnoses / Procedures Referred By Contact Referred To Contact Authorized Specialty Services Required/Clary ent's Best Interest Physical Therapy / Rehabilitation Diagnoses S/P ACL repair Canelo Beltre MD [address] [place] [address] [place] [phone] Status Reason Specialty Diagnoses / Procedures Referred By Contact Referred To Contact Authorized Specialty Services Required/Clary ent's Best Interest Physical Therapy / Rehabilitation Diagnoses S/P ACL repair Canelo Beltre MD [address] [place] [address] [place] [phone] Reason Comments Follow-up Suture / Staple Removal Reason Comments Wellness Reason Comments Population Health Navigation Outreach Po pulation Health Reason Comments Care Patient Question Reason Comments Received Outside Medical Records Reason Comments Nausea Vomiting Reason Comments follow up ED visit Reason Comments Care Reason Comments Initial OB Visit Reason Onset Date Comments Care 05/31/2023 Reason Comments US Specialty Diagnoses / Procedures Referred By Contac t Referred To Contact [facility] Diagnoses 10 weeks gestation of Procedures NUCHAL TRANSLUCENCY WHI US NUCHAL TRANSLUCENCY 1ST GESTATION Maranda Engle, JODY.VALERIE [address] [place] [address] [facility] [address] [place] [address] Referral ID Status Reason Start Date Expiration Date V isits Requested Visits Authorized [id number] Closed Auto-Generate d Referral 05/16/2023 05/15/2024 1 1 Reason Onset Date Comments Care 06/29/2023 Reason Onset Date Comments Care 07/27/2023 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 Reason Onset Date Comments Care 08/24/2023 Reason Comments Blood Sugar Reading Reason Onset Date Comments Care Care 10/26/2023 Reason Onset Date Comments Refill Request 10/26/2023 Reason Comments Assessment Patient Education Specialty Diagnoses / Procedures Referred By Contac t Referred To Contact Nutrition Diagnoses 31 weeks gestation of Gestational diabetes mellitus (GDM) in third trimester, gestational diabetes method of control unspecified Procedures CONSULT TO NUTRITION THERAPY MEDICAL NUTRITION ASSMT&IVNTJ INDIV EACH 15 MD MEDICAL NUTRITION ASSMT&IVNTJ INDIV EACH 15 MD MEDICAL NUTRITION ASSMT&IVNTJ INDIV EACH 15 MD MEDICAL NUTRITION ASSMT&IVNTJ INDIV EACH 15 MD Annika Lehman MD [address] [place] [address] Referral ID Status Reason Start Date Expiration Date V isits Requested Visits Authorized [id number] Closed PCP Requested Referral 10/09/2023 10/08/2024 1 1 Reason Comments OB Blood sugars Reason Onset Date Comments Care 11/01/2023 Reason Onset Date Comments Care 11/06/2023 Reason Onset Date Comments Care 11/19/2023 Reason Comments vs Reason Onset Date Comments Care 11/22/2023 Reason Onset Date Comments Care 11/26/2023 Reason Comments Ob Delivery Note Reason Comments Routine Reason Comments Refill Request Reason Comments Abnormal Pap Reason Comments Results 3 hour glucose Reason Comments Colposcopy Specialty Diagnoses / Procedures Referred By Contsalvador t Referred To Contact [facility] Diagnoses ASCUS with positive high risk HPV cervical Procedures COLPOSCOPY COLPOSCOPY CERVIX BX CERVIX & ENDOCRV CURRETAGE COLPOSCOPY ENTIRE VAGINA W/CERVIX IF PRESENT Chris Law MD [address] [place] [address] [facility] [address] [place] [address] Referral ID Status Reason Start Date Expiration Date V isits Requested Visits Authorized [id number] Closed Auto-Generate d Referral 02/21/2024 09/09/2024 1 1 Reason Comments Wellness Reason Comments Orthopedic Referral has been faxed to [facility] Reason Comments Ortho referral info given via [employer] Reason Comments Referral Information Reason Comments Refill Request Cyclobenzaprine Reason Onset Date Comments Refill Request 08/18/2024 Reason Onset Date Comments Refill Request 09/16/2024 Reason Comments Patient Update Reason Comments Follow Up Reason Comments Abdominal Pain <item><item><item> Privacy Markings (unrecogniz ed section and content) Section Author: Dione Tapia PROHIBITION ON REDISCLOSURE OF CONFIDENTIAL INFORMATION This notice accompanies a disclosure of information concerning a client made to you with the consent of such client. Section Author: Dione Tapia PROHIBITION ON REDISCLOSURE OF CONFIDENTIAL INFORMATION This notice accompanies a disclosure of information concerning a client made to you with the consent of such client. Section Author: Dione Tapia PROHIBITION ON REDISCLOSURE OF CONFIDENTIAL INFORMATION This notice accompanies a disclosure of information concerning a client made to you with the consent of such client. Source Comments (unrecognize d section and content) In the event this informatio n is protected by the Federal Confidentiality of Alcohol and Drug Abuse Patient Records regulations: The Federal rules restrict any use of the information to criminally investigate or prosecute any alcohol or drug abuse patient.[facility] the event this information is protected by the Federal Confidentiality of Alcohol and Drug Abuse Patient Records regulations: The Federal rules restrict any use of the information to criminally investigate or prosecute any alcohol or drug abuse patient.[facility] the event this information is protected by the Federal Confidentiality of Alcohol and Drug Abuse Patient Records regulations: The Federal rules restrict any use of the information to criminally investigate or prosecute any alcohol or drug abuse patient.[facility] the event this information is protected by the Federal Confidentiality of Alcohol and Drug Abuse Patient Records regulations: The Federal rules restrict any use of the information to criminally investigate or prosecute any alcohol or drug abuse patient.[facility] the event this information is protected by the Federal Confidentiality of Alcohol and Drug Abuse Patient Records regulations: The Federal rules restrict any use of the information to criminally investigate or prosecute any alcohol or drug abuse patient.[facility] the event this information is protected by the Federal Confidentiality of Alcohol and Drug Abuse Patient Records regulations: The Federal rules restrict any use of the information to criminally investigate or prosecute any alcohol or drug abuse patient.[facility] the event this information is protected by the Federal Confidentiality of Alcohol and Drug Abuse Patient Records regulations: The Federal rules restrict any use of the information to criminally investigate or prosecute any alcohol or drug abuse patient.[facility] the event this information is protected by the Federal Confidentiality of Alcohol and Drug Abuse Patient Records regulations: The Federal rules restrict any use of the information to criminally investigate or prosecute any alcohol or drug abuse patient.[facility] the event this information is protected by the Federal Confidentiality of Alcohol and Drug Abuse Patient Records regulations: The Federal rules restrict any use of the information to criminally investigate or prosecute any alcohol or drug abuse patient.[facility] the event this information is protected by the Federal Confidentiality of Alcohol and Drug Abuse Patient Records regulations: The Federal rules restrict any use of the information to criminally investigate or prosecute any alcohol or drug abuse patient.[facility] the event this information is protected by the Federal Confidentiality of Alcohol and Drug Abuse Patient Records regulations: The Federal rules restrict any use of the information to criminally investigate or prosecute any alcohol or drug abuse patient.[facility] the event this information is protected by the Federal Confidentiality of Alcohol and Drug Abuse Patient Records regulations: The Federal rules restrict any use of the information to criminally investigate or prosecute any alcohol or drug abuse patient.[facility] the event this information is protected by the Federal Confidentiality of Alcohol and Drug Abuse Patient Records regulations: The Federal rules restrict any use of the information to criminally investigate or prosecute any alcohol or drug abuse patient.[facility] Center[facility] the event this information is protected by the Federal Confidentiality of Alcohol and Drug Abuse Patient Records regulations: The Federal rules restrict any use of the information to criminally investigate or prosecute any alcohol or drug abuse patient.[facility] Center[facility] the event this information is protected by the Federal Confidentiality of Alcohol and Drug Abuse Patient Records regulations: The Federal rules restrict any use of the information to criminally investigate or prosecute any alcohol or drug abuse patient.[facility] Center[facility] the event this information is protected by the Federal Confidentiality of Alcohol and Drug Abuse Patient Records regulations: The Federal rules restrict any use of the information to criminally investigate or prosecute any alcohol or drug abuse patient.[facility] Center[facility] the event this information is protected by the Federal Confidentiality of Alcohol and Drug Abuse Patient Records regulations: The Federal rules restrict any use of the information to criminally investigate or prosecute any alcohol or drug abuse patient.[facility] Center[facility] the event this information is protected by the Federal Confidentiality of Alcohol and Drug Abuse Patient Records regulations: The Federal rules restrict any use of the information to criminally investigate or prosecute any alcohol or drug abuse patient.[facility] Center[facility] the event this information is protected by the Federal Confidentiality of Alcohol and Drug Abuse Patient Records regulations: The Federal rules restrict any use of the information to criminally investigate or prosecute any alcohol or drug abuse patient.[facility] CenterIn the event this information is protected by the Federal Confidentiality of Alcohol and Drug Abuse Patient Records regulations: The Federal rules restrict any use of the information to criminally investigate or prosecute any alcohol or drug abuse patient.[facility] Center[facility] the event this information is protected by the Federal Confidentiality of Alcohol and Drug Abuse Patient Records regulations: The Federal rules restrict any use of the information to criminally investigate or prosecute any alcohol or drug abuse patient.[facility] Center[facility] the event this information is protected by the Federal Confidentiality of Alcohol and Drug Abuse Patient Records regulations: The Federal rules restrict any use of the information to criminally investigate or prosecute any alcohol or drug abuse patient.[facility] CenterIn the event this information is protected by the Federal Confidentiality of Alcohol and Drug Abuse Patient Records regulations: The Federal rules restrict any use of the information to criminally investigate or prosecute any alcohol or drug abuse patient.[facility] CenterIn the event this information is protected by the Federal Confidentiality of Alcohol and Drug Abuse Patient Records regulations: The Federal rules restrict any use of the information to criminally investigate or prosecute any alcohol or drug abuse patient.[facility] CenterIn the event this information is protected by the Federal Confidentiality of Alcohol and Drug Abuse Patient Records regulations: The Federal rules restrict any use of the information to criminally investigate or prosecute any alcohol or drug abuse patient.[facility] CenterIn the event this information is protected by the Federal Confidentiality of Alcohol and Drug Abuse Patient Records regulations: The Federal rules restrict any use of the information to criminally investigate or prosecute any alcohol or drug abuse patient.[facility] CenterIn the event this information is protected by the Federal Confidentiality of Alcohol and Drug Abuse Patient Records regulations: The Federal rules restrict any use of the information to criminally investigate or prosecute any alcohol or drug abuse patient.[facility] CenterIn the event this information is protected by the Federal Confidentiality of Alcohol and Drug Abuse Patient Records regulations: The Federal rules restrict any use of the information to criminally investigate or prosecute any alcohol or drug abuse patient.[facility] CenterIn the event this information is protected by the Federal Confidentiality of Alcohol and Drug Abuse Patient Records regulations: The Federal rules restrict any use of the information to criminally investigate or prosecute any alcohol or drug abuse patient.[facility] CenterIn the event this information is protected by the Federal Confidentiality of Alcohol and Drug Abuse Patient Records regulations: The Federal rules restrict any use of the information to criminally investigate or prosecute any alcohol or drug abuse patient.[facility] CenterIn the event this information is protected by the Federal Confidentiality of Alcohol and Drug Abuse Patient Records regulations: The Federal rules restrict any use of the information to criminally investigate or prosecute any alcohol or drug abuse patient.[facility] CenterIn the event this information is protected by the Federal Confidentiality of Alcohol and Drug Abuse Patient Records regulations: The Federal rules restrict any use of the information to criminally investigate or prosecute any alcohol or drug abuse patient.[facility] CenterIn the event this information is protected by the Federal Confidentiality of Alcohol and Drug Abuse Patient Records regulations: The Federal rules restrict any use of the information to criminally investigate or prosecute any alcohol or drug abuse patient.[facility] CenterIn the event this information is protected by the Federal Confidentiality of Alcohol and Drug Abuse Patient Records regulations: The Federal rules restrict any use of the information to criminally investigate or prosecute any alcohol or drug abuse patient.[facility] CenterIn the event this information is protected by the Federal Confidentiality of Alcohol and Drug Abuse Patient Records regulations: The Federal rules restrict any use of the information to criminally investigate or prosecute any alcohol or drug abuse patient.[facility] CenterIn the event this information is protected by the Federal Confidentiality of Alcohol and Drug Abuse Patient Records regulations: The Federal rules restrict any use of the information to criminally investigate or prosecute any alcohol or drug abuse patient.[facility] CenterIn the event this information is protected by the Federal Confidentiality of Alcohol and Drug Abuse Patient Records regulations: The Federal rules restrict any use of the information to criminally investigate or prosecute any alcohol or drug abuse patient.[facility] CenterIn the event this information is protected by the Federal Confidentiality of Alcohol and Drug Abuse Patient Records regulations: The Federal rules restrict any use of the information to criminally investigate or prosecute any alcohol or drug abuse patient.[facility] CenterIn the event this information is protected by the Federal Confidentiality of Alcohol and Drug Abuse Patient Records regulations: The Federal rules restrict any use of the information to criminally investigate or prosecute any alcohol or drug abuse patient.[facility] CenterIn the event this information is protected by the Federal Confidentiality of Alcohol and Drug Abuse Patient Records regulations: The Federal rules restrict any use of the information to criminally investigate or prosecute any alcohol or drug abuse patient.[facility] CenterIn the event this information is protected by the Federal Confidentiality of Alcohol and Drug Abuse Patient Records regulations: The Federal rules restrict any use of the information to criminally investigate or prosecute any alcohol or drug abuse patient.[facility] CenterIn the event this information is protected by the Federal Confidentiality of Alcohol and Drug Abuse Patient Records regulations: The Federal rules restrict any use of the information to criminally investigate or prosecute any alcohol or drug abuse patient.[facility] CenterIn the event this information is protected by the Federal Confidentiality of Alcohol and Drug Abuse Patient Records regulations: The Federal rules restrict any use of the information to criminally investigate or prosecute any alcohol or drug abuse patient.[facility] CenterIn the event this information is protected by the Federal Confidentiality of Alcohol and Drug Abuse Patient Records regulations: The Federal rules restrict any use of the information to criminally investigate or prosecute any alcohol or drug abuse patient.[facility] CenterIn the event this information is protected by the Federal Confidentiality of Alcohol and Drug Abuse Patient Records regulations: The Federal rules restrict any use of the information to criminally investigate or prosecute any alcohol or drug abuse patient.[facility] CenterIn the event this information is protected by the Federal Confidentiality of Alcohol and Drug Abuse Patient Records regulations: The Federal rules restrict any use of the information to criminally investigate or prosecute any alcohol or drug abuse patient.[facility] CenterIn the event this information is protected by the Federal Confidentiality of Alcohol and Drug Abuse Patient Records regulations: The Federal rules restrict any use of the information to criminally investigate or prosecute any alcohol or drug abuse patient.[facility] CenterIn the event this information is protected by the Federal Confidentiality of Alcohol and Drug Abuse Patient Records regulations: The Federal rules restrict any use of the information to criminally investigate or prosecute any alcohol or drug abuse patient.[facility] CenterIn the event this information is protected by the Federal Confidentiality of Alcohol and Drug Abuse Patient Records regulations: The Federal rules restrict any use of the information to criminally investigate or prosecute any alcohol or drug abuse patient.[facility] CenterIn the event this information is protected by the Federal Confidentiality of Alcohol and Drug Abuse Patient Records regulations: The Federal rules restrict any use of the information to criminally investigate or prosecute any alcohol or drug abuse patient.[facility] CenterIn the event this information is protected by the Federal Confidentiality of Alcohol and Drug Abuse Patient Records regulations: The Federal rules restrict any use of the information to criminally investigate or prosecute any alcohol or drug abuse patient.[facility] CenterIn the event this information is protected by the Federal Confidentiality of Alcohol and Drug Abuse Patient Records regulations: The Federal rules restrict any use of the information to criminally investigate or prosecute any alcohol or drug abuse patient.[facility] CenterIn the event this information is protected by the Federal Confidentiality of Alcohol and Drug Abuse Patient Records regulations: The Federal rules restrict any use of the information to criminally investigate or prosecute any alcohol or drug abuse patient.[facility] CenterIn the event this information is protected by the Federal Confidentiality of Alcohol and Drug Abuse Patient Records regulations: The Federal rules restrict any use of the information to criminally investigate or prosecute any alcohol or drug abuse patient.[facility] CenterIn the event this information is protected by the Federal Confidentiality of Alcohol and Drug Abuse Patient Records regulations: The Federal rules restrict any use of the information to criminally investigate or prosecute any alcohol or drug abuse patient.[facility] CenterIn the event this information is protected by the Federal Confidentiality of Alcohol and Drug Abuse Patient Records regulations: The Federal rules restrict any use of the information to criminally investigate or prosecute any alcohol or drug abuse patient.[facility] CenterIn the event this information is protected by the Federal Confidentiality of Alcohol and Drug Abuse Patient Records regulations: The Federal rules restrict any use of the information to criminally investigate or prosecute any alcohol or drug abuse patient.[facility] CenterIn the event this information is protected by the Federal Confidentiality of Alcohol and Drug Abuse Patient Records regulations: The Federal rules restrict any use of the information to criminally investigate or prosecute any alcohol or drug abuse patient.[facility] CenterIn the event this information is protected by the Federal Confidentiality of Alcohol and Drug Abuse Patient Records regulations: The Federal rules restrict any use of the information to criminally investigate or prosecute any alcohol or drug abuse patient.[facility] CenterIn the event this information is protected by the Federal Confidentiality of Alcohol and Drug Abuse Patient Records regulations: The Federal rules restrict any use of the information to criminally investigate or prosecute any alcohol or drug abuse patient.[facility] CenterIn the event this information is protected by the Federal Confidentiality of Alcohol and Drug Abuse Patient Records regulations: The Federal rules restrict any use of the information to criminally investigate or prosecute any alcohol or drug abuse patient.[facility] Teams (unrecognized sec tion and content) Proofing Machine Operator Relationship Specialty Start Date End Date Margarita Mosley MD [address] [place] [address] PCP - General Family Medicine 11/09/22 Keisha Armas [address] [address] MUTUAL FUND ACCOUNTANT 11/09/22 Proofing Machine Operator Relationship Specialty Start Date End Date Margarita Mosley MD [address] [place] [address] PCP - General Family Medicine 11/09/22 Keisha Armas [address] [address] MUTUAL FUND ACCOUNTANT 11/09/22 Proofing Machine Operator Relationship Specialty Start Date End Date Margarita Mosley MD [address] [place] [address] PCP - General Family Medicine 11/09/22 Keisha Armas [address] [address] MUTUAL FUND ACCOUNTANT 11/09/22 Proofing Machine Operator Relationship Specialty Start Date End Date Margarita Mosley MD [address] [place] [address] PCP - General Family Medicine 11/09/22 Keisha Armas [address] [address] MUTUAL FUND ACCOUNTANT 11/09/22 Proofing Machine Operator Relationship Specialty Start Date End Date Margarita Mosley MD [address] [place] [address] (Fax) PCP - General Family Medicine 11/09/22 Keisha Armas [address] [address] (Work) MUTUAL FUND ACCOUNTANT 11/09/22 Team Status: Active Member Role Status Dates Dr. Margarita Mosley MD Family Provider Active Dr. Margarita Mosley MD Primary Care Provider Active Team Status: Inactive Member Role Status Dates Dr. Margarita Mosley MD Primary Care Provider Active Dr. Anton Islas MD Attending Provider Active Team Status: Inactive Member Role Status Dates Dr. Margarita Mosley MD Primary Care Provider Active Dr. David Evans DO Emergency Provider Active Team Status: Active Member Role Status Dates Dr. Margarita Mosley MD Primary Care Provider Active Dr. Anton Islas MD Attending Provider Active Proofing Machine Operator Relationship Specialty Start Date End Date Margarita Mosley MD [address] [place] [address] PCP - General Family Medicine 11/09/22 Keisha Armas [address] [address] (Work) MUTUAL FUND ACCOUNTANT 11/09/22 Proofing Machine Operator Relationship Specialty Start Date End Date Margarita Mosley MD [address] [place] [address] PCP - General Family Medicine 11/09/22 Keisha Armas [address] [place] [address] MUTUAL FUND ACCOUNTANT 11/09/22 Proofing Machine Operator Relationship Specialty Start Date End Date Margarita Mosley MD [address] [place] [address] PCP - General Family Medicine 11/09/22 Keisha Armas [address] [place] [address] MUTUAL FUND ACCOUNTANT 11/09/22 Proofing Machine Operator Relationship Specialty Start Date End Date Margarita Mosley MD [address] [place] [address] PCP - General Family Medicine 11/09/22 Keisha Armas [address] [place] [address] MUTUAL FUND ACCOUNTANT 11/09/22 Proofing Machine Operator Relationship Specialty Start Date End Date Margarita Mosley MD [address] [place] [address] PCP - General Family Medicine 11/09/22 Keisha Armas [address] [place] [address] MUTUAL FUND ACCOUNTANT 11/09/22 Proofing Machine Operator Relationship Specialty Start Date End Date Margarita Mosley MD [address] [place] [address] PCP - General Family Medicine 11/09/22 Keisha Armas [address] [place] [address] MUTUAL FUND ACCOUNTANT 11/09/22 Proofing Machine Operator Relationship Specialty Start Date End Date Margarita Mosley MD [address] [place] [address] PCP - General Family Medicine 11/09/22 Keisha Armas [address] [place] [address] MUTUAL FUND ACCOUNTANT 11/09/22 Proofing Machine Operator Relationship Specialty Start Date End Date Margarita Mosley MD [address] [place] [address] PCP - General Family Medicine 11/09/22 Keisha Armas [address] [place] [address] MUTUAL FUND ACCOUNTANT 11/09/22 Proofing Machine Operator Relationship Specialty Start Date End Date Margarita Mosley MD [address] [place] [address] PCP - General Family Medicine 11/09/22 Keisha Armas [address] [place] [address] MUTUAL FUND ACCOUNTANT 11/09/22 Proofing Machine Operator Relationship Specialty Start Date End Date Margarita Mosley MD [address] [place] [address] PCP - General Family Medicine 11/09/22 Keisha Armas [address] [place] [address], [place] [id number] MUTUAL FUND ACCOUNTANT 11/09/22 Proofing Machine Operator Relationship Specialty Start Date End Date Margarita Mosley MD [address] [place] [address] PCP - General Family Medicine 11/09/22 Keisha Armas [address] [place] [address], [place] [id number] Portrait Consultant 11/09/22 Proofing Machine Operator Relationship Specialty Start Date End Date Margarita Mosley MD [address] [place] [address] PCP - General Family Medicine 11/09/22 Keisha Armas [address] [place] [address] Portrait Consultant 11/09/22 Proofing Machine Operator Relationship Specialty Start Date End Date Margarita Mosley MD [address] [place] [address] PCP - General Family Medicine 11/09/22 Keisha Armas [address] [place] [address] Portrait Consultant 11/09/22 Proofing Machine Operator Relationship Specialty Start Date End Date Margarita Mosley MD [address] [place] [address] PCP - General Family Medicine 11/09/22 Keisha Armas [address] [place] [address], [place] [id number] Portrait Consultant 11/09/22 Proofing Machine Operator Relationship Specialty Start Date End Date Margarita Mosley MD [address] [place] [address] PCP - General Family Medicine 11/09/22 Keisha Armas [address] [place] [address], [place] [id number] Portrait Consultant 11/09/22 Proofing Machine Operator Relationship Specialty Start Date End Date Margarita Mosley MD [address] [place] [address] PCP - General Family Medicine 11/09/22 Keisha Armas [address] [place] [address], [place] [id number] Portrait Consultant 11/09/22 Proofing Machine Operator Relationship Specialty Start Date End Date Margarita Mosley MD [address] [place] [address] PCP - General Family Medicine 11/09/22 Keisha Armas [address] [place] [address] Portrait Consultant 11/09/22 Proofing Machine Operator Relationship Specialty Start Date End Date Margarita Mosley MD [address] [place] [address] PCP - General Family Medicine 11/09/22 [address] Armas [address] [place] [address] Portrait Consultant 11/09/22 Proofing Machine Operator Relationship Specialty Start Date End Date Margarita Mosley MD [address] [place] [address] PCP - General Family Medicine 11/09/22 Keisha Armas [address] [place] [address] Portrait Consultant 11/09/22 Proofing Machine Operator Relationship Specialty Start Date End Date Margarita Mosley MD [address] [place] [address] PCP - General Family Medicine 11/09/22 Keisha Armas [address] [place] [address], [place] [address] Portrait Consultant 11/09/22 Proofing Machine Operator Relationship Specialty Start Date End Date Margarita Mosley MD [address] [place] [address] PCP - General Family Medicine 11/09/22 Keisha Armas [address] [place] [address] Portrait Consultant 11/09/22 Proofing Machine Operator Relationship Specialty Start Date End Date Margarita Mosley MD [address] [place] [address] PCP - General Family Medicine 11/09/22 Keisha Armas [address] [place] [address] Portrait Consultant 11/09/22 Team Status: Inactive Member Role Status Dates Dr. Margarita Mosley MD Primary Care Provider Active Dr. Chris Law , DO Admit Provider, At tending Provider, Referring Provider Active Proofing Machine Operator Relationship Specialty Start Date End Date Margarita Mosley MD [address] [place] [address] PCP - General Family Medicine 11/09/22 Keisha Armas [address] [place] [address] Portrait Consultant 11/09/22 Proofing Machine Operator Relationship Specialty Start Date End Date Margarita Mosley MD [address] [place] [address] PCP - General Family Medicine 11/09/22 Keisha Armas MD [address] [place] [address] Portrait Consultant 11/09/22 Proofing Machine Operator Relationship Specialty Start Date End Date Margarita Mosley MD [address] [place] [address] PCP - General Family Medicine 11/09/22 Keisha Armas MD [address] [place] [address] Portrait Consultant 11/09/22 Proofing 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 Operator Relationship Specialty Start Date End Date Margarita Mosley MD [address] [place] [address] PCP - General Family Medicine 11/09/22 Keisha Armas MD [address] [place] [address] Portrait Consultant 11/09/22 Proofing Machine Operator Relationship Specialty Start Date End Date Margarita Mosley MD [address] [place] [address] PCP - General Family Medicine 11/09/22 Keisha Armas MD [address] [place] [address] Portrait Consultant 11/09/22 Proofing Machine Operator Relationship Specialty Start Date End Date Margarita Mosley MD [address] [place] [address] PCP - General Family Medicine 11/09/22 Keisha Armas MD [address] [place] [address] Portrait Consultant 11/09/22 Proofing Machine Operator Relationship Specialty Start Date End Date Margarita Mosley MD [address] [place] [address] PCP - General Family Medicine 11/09/22 Keisha Armas MD [address] [place] [address] Portrait Consultant 11/09/22 Proofing Machine Operator Relationship Specialty Start Date End Date Margarita Mosley MD [address] [place] [address] PCP - General Family Medicine 11/09/22 Keisha Armas MD [address] [place] [address] Portrait Consultant 11/09/22 Proofing Machine Operator Relationship Specialty Start Date End Date Margarita Mosley MD [address] [place] [address] PCP - General Family Medicine 11/09/22 Keisha Armas MD [address] [place] [phone] Portrait Consultant 11/09/22 Proofing Machine Operator Relationship Specialty Start Date End Date Margarita Mosley MD [facility] [place] [address] PCP - General Family Medicine 11/09/22 Keisha Armas MD [address] [place] [address] Portrait Consultant 11/09/22 Proofing Machine Operator Relationship Specialty Start Date End Date Margarita Mosley MD [address] [place] [address] PCP - General Family Medicine 11/09/22 Keisha Armas MD [address] [place] [address] Portrait Consultant 11/09/22 Proofing Machine Operator Relationship Specialty Start Date End Date Margarita Mosley MD [address] [place] [address] PCP - General Family Medicine 11/09/22 Keisha Armas MD [address] [place] [address] Portrait Consultant 11/09/22 Proofing Machine Operator Relationship Specialty Start Date End Date Margarita Mosley MD [address] [place] [address] PCP - General Family Medicine 11/09/22 Keisha Armas MD [address] [place] [address] Portrait Consultant 11/09/22 Proofing Machine Operator Relationship Specialty Start Date End Date Margarita Mosley MD [address] [place] [address] PCP - General Family Medicine 11/09/22 Keisha Armas MD [address] [place] [address] Portrait Consultant 11/09/22 Proofing Machine Operator Relationship Specialty Start Date End Date Margarita Mosley MD [address] [place] [address] PCP - General Family Medicine 11/09/22 Keisha Armas MD [address] [place] [address] Portrait Consultant 11/09/22 Proofing Machine Operator Relationship Specialty Start Date End Date Margarita Mosley MD [address] [place] [address] PCP - General Family Medicine 11/09/22 Keisha Armas MD [address] [address] Portrait Consultant 11/09/22 Team Status: Active Member Role Status Dates Dr. Margarita Mosley MD Primary Care Provider Active Team Status: Inactive Member Role Status Dates Dr. Margarita Mosley MD Primary Care Provider Active Start: October 01, 2024 End: October 01, 2024 Dr. Enrique Khoury DO Attending Provider Active Start: October 01, 2024 End: October 01, 2024 Dr. Enrique Khoury DO Emergency Provider Active Start: October 01, 2024 End: October 01, 2024 Team Status: Inactive Member Role Status Dates Dr. Margarita Mosley MD Primary Care Provider Active Start: October 01, 2024 End: October 01, 2024 Dr. Enrique Dyer MD Attending Provider Active Start: October 01, 2024 End: October 01, 2024 Dr. Enrique Dyer MD Referring Provider Active Start: October 01, 2024 End: October 01, 2024 Team Status: Inactive Member Role Status Dates Dr. Margarita Mosley MD Primary Care Provider Active Start: October 02, 2024 End: October 02, 2024 Dr. Enrique Dyer MD Attending Provider Active Start: October 02, 2024 End: October 02, 2024 Dr. Enrique Dyer MD Referring Provider Active Start: October 02, 2024 End: October 02, 2024 Proofing Machine Operator Relationship Specialty Start Date End Date Margarita Mosley MD [address] [place] [address] PCP - General Family Medicine 11/09/22 Keisha Armas MD [address] [id number] Portrait Consultant 11/09/22 Proofing Machine Operator Relationship Specialty Start Date End Date Margarita Mosley MD [address] [place] [address] PCP - General Family Medicine 11/09/22 Keisha Armas MD [id number] [id number] Portrait Consultant 11/09/22 Proofing Machine Operator Relationship Specialty Start Date End Date Margarita Mosley MD [address] [place] [address] PCP - General Family Medicine 11/09/22 Keisha Armas MD [id number] [id number] Portrait Consultant 11/09/22 Proofing Machine Operator Relationship Specialty Start Date End Date Margarita Mosley MD [address] [place] [address] PCP - General Family Medicine 11/09/22 Keisha Armas MD [email or web address] [id number] Portrait Consultant 11/09/22 Team Status: Active Member Role/Relationship Status Dates Dr. Margarita Mosley MD Primary care physician Active Team Status: Active Member Role/Relationship Status Dates Dr. Margarita Mosley MD Primary care physician Active Start: May 25, 2025 Dr. Enrique Dyer MD Attending physician Active Start: May 25, 2025 Dr. Enrique Dyer MD Referring Provider Active Start: May 25, 2025 Goals (unrecognized section and content) Goals may be documented in a n alternate sectionGoals may be documented in an alternate section No Information AvailableGoals may be documented in an alternate section FOR RECORDS PERTAINING TO PATIENTS WHO ARE OR HAVE BEEN ENROLLED IN A CHEMICAL DEPENDENCY/SUBSTANCEABUSE PROGRAM, SOME INFORMATION MAY BE OMITTED. This clinical summary was aggregated from multiple sources. Caution should be exercised in using it in the provision of clinical care. This summary normalizes information from multiple sources, and as a consequence, information in this document may materially change the coding, format and clinical context of patient data. In addition, data may be omitted in some cases. CLINICAL DECISIONS SHOULD BE BASED ON THE PRIMARY CLINICAL RECORDS. [facility] provides no warranty or guarantee of the accuracy or completeness of information in this document.
[2025-08-09 18:49] LABS: AST(SGOT) 32 U/L (<=31); Alanine Aminotransfer ALT/SGPT 18 U/L (<=34); Albumin, Serum 4.7 g/dL (3.5-5.0); Alkaline Phosphatase 71 U/L (35-104); Anion Gap 16 (5-15); BUN 9 mg/dL (4-19); BUN/Creat Ratio 11.8 RATIO (10-20); Bilirubin, Direct 0.57 mg/dL (0.00-0.30); Calcium,Total 9.3 mg/dL (7.6-11.0); Carbon Dioxide 20.9 mmol/L (21.0-32.0); Chloride 101 mmol/L (98-108); Estimated Creatinine Clearance 99.47 ml/min (50-250); Globulin 2.9 g/dL (2.2-4.2); Glucose 131 mg/dL (70-99); Lipase 20 U/L (13-75); Potassium 3.4 mmol/L (3.3-5.1)
--- NOTE | 2025-08-09 19:17 | US_ITS ---
PROCEDURE: GALLBLADDER 08/09/2025 REASON FOR EXAM: PAIN TECHNIQUE: Procedure Code: USGB Modality: US Procedure: GALLBLADDER COMPARISON: None FINDINGS: GALLBLADDER: No gallstones. no gallbladder wall thickening or pericholecystic fluid. Negative Talbert sign. COMMON BILE DUCT: Measures 3.7 mm. No intrahepatic biliary dilatation. LIVER: Normal size. Normal echotexture. No definite hepatic mass. RIGHT KIDNEY: Normal in size and echogenicity. No mass. No urinary stones. No hydronephrosis. Pancreas: Within normal limits. US/Gallbladder IMPRESSION: No acute cholecystitis. Reading Location: [id number]
[2025-08-09 20:49] VITALS: BP 146/97; PULSE 77; RESP 13; O2SAT 97
[2025-08-09 21:54] VITALS: BP 142/90; PULSE 86; O2SAT 97
== END 2025-08-09 22:01 | disposition home or self-care (01) ==
PROVIDERS: Emergency Provider Emergency Medicine; PCP Family Medicine; Visit Provider Emergency Medicine
DX: R10.11 Right upper quadrant pain (principal); R00.0 Tachycardia, unspecified; R03.0 Elevated blood-pressure reading, without diagnosis of hypertension; K58.9 Irritable bowel syndrome, unspecified; R74.8 Abnormal levels of other serum enzymes; I10 Essential (primary) hypertension; F17.210 Nicotine dependence, cigarettes, uncomplicated; D72.829 Elevated white blood cell count, unspecified; R73.9 Hyperglycemia, unspecified; F32.A Depression, unspecified; R17 Unspecified jaundice
CPT/HCPCS: 76705; 80048; 80076; 83690; 85025; 99284; A4216